=== PATIENT | female | born 1950 | race Caucasian/White ===

== ENCOUNTER 2018-06-03 01:59 | Outpatient (CLI) | payer MEDICARE, BC, SELFPAY ==
[2018-06-03 11:37] LABS: CREATININE 0.78 mg/dL (0.55-1.02); Potassium 5.1 mmol/L (3.5-5.1)
[2018-06-03 12:06] LABS: Ferritin 72 ng/mL (8-388)
[2018-06-03 12:14] LABS: Hemoglobin A1C 6.5 % (4.5-6.2)
== END 2018-06-03 02:19 ==
PROVIDERS: PCP Family Medicine; Visit Provider Nurse Practitioner
DX: E11.9 Type 2 diabetes mellitus without complications (principal); M25.50 Pain in unspecified joint
CPT/HCPCS: 36415; 82565; 82728; 83036; 84132

== ENCOUNTER 2018-06-26 00:58 | Outpatient (CLI) | payer MEDICARE, BC, SELFPAY ==
--- NOTE | 2018-06-26 08:51 | DI.MAMMO_ITS ---
SYMPTOMS/DIAGNOSIS: SCREENING, Z12.31 MAMMOGRAM: Mammograms were interpreted according to the usual protocol including computer analysis with CAD system, tomosynthesis and C view imaging. Comparison is made with exams from 2009 through 2017. The breasts are composed of fatty density tissue, breast density Category A. No suspicious masses or suspicious microcalcifications are seen. There has been no significant change. IMPRESSION: Category I A, negative mammogram. Routine screening is recommended. [facility] ASSESSMENT OF FINDINGS: Negative. Category 1. Patient will receive a letter notifying them of these results. BI-RAD category A. The breasts are almost entirely fatty.
== END 2018-06-26 01:18 ==
PROVIDERS: PCP Family Medicine; Visit Provider Family Medicine
DX: Z12.31 Encounter for screening mammogram for malignant neoplasm of breast (principal)
CPT/HCPCS: 77063; 77067

== ENCOUNTER → 2018-10-23 13:15 | Outpatient (BNVA) | payer MEDICARE, BC, SELFPAY | PROVIDERS: PCP Family Medicine; Referring Provider Family Medicine; Visit Provider Orthopaedic Surgery | DX: M17.11 Unilateral primary osteoarthritis, right knee (principal) | CPT/HCPCS: 20610; 99211; 99213; J7325 ==

== ENCOUNTER 2018-12-17 10:30 | Outpatient (CLI) | payer MEDICARE, BC, SELFPAY ==
[2018-12-17 13:18] LABS: Vitamin B12 539 pg/mL (193-986)
== END 2018-12-17 10:50 ==
PROVIDERS: PCP Family Medicine; Visit Provider Family Medicine
DX: E53.8 Deficiency of other specified B group vitamins (principal)
CPT/HCPCS: 36415; 82607

== ENCOUNTER → 2019-01-16 | Outpatient (CLI) | payer MEDICARE, BC, SELFPAY ==
--- NOTE | 2019-01-16 11:30 | DI.RAD_ITS ---
SYMPTOMS/DIAGNOSIS: LEFT LEG PAIN, M79.605, ANTERIOR AND MEDIAL STUMP PAIN S/P AMPUTATION IN 2013, PROSTHESIS IN 2014-PAIN SINCE BUT WORSENING WITH TIME LEFT KNEE: Three views were obtained and show a below-knee amputation. Mild hypertrophic changes noted at the amputated tip of the fibula and tibia. Minimal hypertrophic spurring of the bones of the knee. No other abnormality seen.
== END ==
PROVIDERS: PCP Family Medicine; Visit Provider Family Medicine
DX: M79.605 Pain in left leg (principal); E11.9 Type 2 diabetes mellitus without complications; Z89.512 Acquired absence of left leg below knee
CPT/HCPCS: 36415; 73590; 83036

== ENCOUNTER 2019-02-16 10:52 | Outpatient (CLI) | payer MEDICARE, BC, SELFPAY ==
[2019-02-16 13:06] LABS: Ferritin 58 ng/mL (8-388); TSH (W/Ref FT4) 2.27 uIU/mL (0.358-3.74)
[2019-02-16 13:13] LABS: Vitamin D 25 Total 14.9 ng/ml (30-100)
== END 2019-02-16 11:12 ==
PROVIDERS: PCP Family Medicine; Visit Provider Internal Medicine Sleep Medicine
DX: E55.9 Vitamin D deficiency, unspecified (principal); R53.83 Other fatigue; M25.50 Pain in unspecified joint
CPT/HCPCS: 36415; 82306; 82728; 84443

== ENCOUNTER 2019-04-17 10:40 | Outpatient (CLI) | payer MEDICARE, BC, SELFPAY ==
[2019-04-17 13:35] LABS: Hemoglobin A1C 8.4 % (4.5-6.2)
== END 2019-04-17 11:00 ==
PROVIDERS: PCP Family Medicine; Visit Provider Family Medicine
DX: E11.9 Type 2 diabetes mellitus without complications (principal)
CPT/HCPCS: 36415; 83036

== ENCOUNTER → 2019-04-28 09:32 | Outpatient (BNVA) | payer MEDICARE, BC, SELFPAY | PROVIDERS: PCP Family Medicine; Referring Provider Family Medicine; Visit Provider Orthopaedic Surgery | DX: M17.11 Unilateral primary osteoarthritis, right knee (principal); E11.9 Type 2 diabetes mellitus without complications; Z79.84 Long term (current) use of oral hypoglycemic drugs; I10 Essential (primary) hypertension | CPT/HCPCS: 20610; 99211; 99213; J7325 ==

== ENCOUNTER 2019-06-08 09:57 | Outpatient (CLI) | payer MEDICARE, BC, SELFPAY ==
[2019-06-08 11:44] LABS: Ferritin 78 ng/mL (8-388)
== END 2019-06-08 10:17 ==
PROVIDERS: PCP Family Medicine; Visit Provider Internal Medicine Sleep Medicine
DX: E55.9 Vitamin D deficiency, unspecified (principal); M25.50 Pain in unspecified joint
CPT/HCPCS: 36415; 82306; 82728

== ENCOUNTER 2019-07-08 12:51 | Outpatient (CLI) | payer MEDICARE, BC, SELFPAY ==
--- NOTE | 2019-07-08 12:30 | DI.RAD_ITS ---
EXAM: XR HIP RT COMPLETE AP PELVIS INDICATION: RT HIP PAIN, M25.551. COMPARISON: No exams were available for comparison TECHNIQUE: 2D digital imaging was performed. FINDINGS: Severe degenerative changes involving the right hip are demonstrated. There is joint space narrowing , articular sclerosis and periarticular hypertrophic changes. There is no evidence of a fracture or dislocation. Also note is made of severe DJD involving the left hip.
== END 2019-07-08 13:11 ==
PROVIDERS: PCP Family Medicine; Visit Provider Family Medicine
DX: M25.551 Pain in right hip (principal); M16.11 Unilateral primary osteoarthritis, right hip
CPT/HCPCS: 73502

== ENCOUNTER 2019-08-17 10:30 | Outpatient (CLI) | payer MEDICARE, BC, SELFPAY ==
--- NOTE | 2019-08-17 09:14 | DI.RAD_ITS ---
EXAM: XR KNEE RT 3V AP,LAT,APOLINAR INDICATION: f/u R knee pain. COMPARISON: RIGHT KNEE 3 VIEWS from 01/24/2015 TECHNIQUE: 2D digital imaging was performed. FINDINGS: There is marked narrowing in the medial femoral tibial joint space. Moderate narrowing of the patell ofemoral joint is present. There is periarticular spurring in all 3 joint compartments. No acute fr acture or dislocation is seen. Atherosclerosis is present. The distal aspect of a vascular stent is seen at the upper aspect of the lateral film. IMPRESSION: Marked osteoarthritis of the right knee.
== END 2019-08-17 10:50 ==
PROVIDERS: PCP Family Medicine; Referring Provider Family Medicine; Visit Provider Student in an Organized Health Care Education/Training Program
DX: M25.561 Pain in right knee (principal); M17.11 Unilateral primary osteoarthritis, right knee; Z89.512 Acquired absence of left leg below knee; M16.11 Unilateral primary osteoarthritis, right hip; E11.8 Type 2 diabetes mellitus with unspecified complications; Z79.84 Long term (current) use of oral hypoglycemic drugs
CPT/HCPCS: 20610; 73562; 99214; J1040

== ENCOUNTER 2019-10-01 00:53 | Outpatient (CLI) | payer MEDICARE, BC, SELFPAY ==
--- NOTE | 2019-10-01 13:18 | DI.RAD_ITS ---
EXAM: RF JOINT INJECTION FLUORO GUID CLINICAL HISTORY: DJD HIP, RT HIP PAIN, R5.559, HIP INJECTION TECHNIQUE: 2D and realtime digital imaging was performed. Fluoroscopy was provided in the OR COMPARISON: No exams were available for comparison FINDINGS: Fluoroscopy was provided for guidance with right hip injection. A single hard copy image shows a nee dle projecting over the right femoral head. Small amount of contrast material is seen. Degenerative changes are also noted. Fluoro time: 1 second
[2019-10-01] MEDS: Bupivacaine 0.5% Pres-Free 10 ML VIAL 6 ML IJ (14:22)
[2019-10-01] MEDS: Omnipaque 300 MG/ML 10 ML BTL IJ (14:22)
[2019-10-01] MEDS: methylPREDNISolone ACETATE 80 MG/ML VIAL IM (14:23)
--- NOTE | 2019-10-01 14:46 | W.PROCNOTE ---
Date of service: 10/01/19 Time of Service: 13:46 Procedure Note Date of procedure: 10/01/19 Procedure: Right Hip Injection with Fluoroscopic Guidance Surgeon/Proceduralist/Physician: Zurdo Carlson Procedure Diagnosis: Right Hip Osteoarthritis Procedure Indications: Mary has had persistent pain of the RIGHT hip and groin. Noninvasive measures have been tried. To serve as both diagnostic and therapeutic, an injection under fluoroscopy was recommended. I had discussed the risks of the procedure and the patient elected to proceed. Procedure Description: Mary was greeted in the flouroscopy room. The correct side was identified and the consent was reviewed with the patient and signed. The patient was then placed in the supine position on the fluoroscopy table. The RIGHT hip was then prepped with Chloraprep. The anterolateral injection starting point was identiifed by bony landmarks and fluoroscopy. The skin and soft tissue in the tract of the injection was anesthetized with 1% Lidocaine. A spinal needle was then inserted deep into the hip joint at the level of the lateral femoral neck under fluoroscopic guidance. A small amount of Omnipaque solution was injected to confirm intraarticular placement. Once confirmed, the hip was injected with 6cc of 0.5% Bupivicaine and 80mg of Depo-Medrol. A bandaid was placed on the injection site. The patient tolerated the procedure well and noted improvement in pre-injection pain.
== END 2019-10-01 01:13 ==
PROVIDERS: PCP Family Medicine; Visit Provider Student in an Organized Health Care Education/Training Program
DX: M25.551 Pain in right hip (principal); M16.11 Unilateral primary osteoarthritis, right hip
CPT/HCPCS: 20610; 77002; J1040

== ENCOUNTER → 2019-10-30 09:11 | Outpatient (BNVA) | payer MEDICARE, BC, SELFPAY | PROVIDERS: PCP Family Medicine; Referring Provider Family Medicine; Visit Provider Student in an Organized Health Care Education/Training Program | DX: M16.11 Unilateral primary osteoarthritis, right hip (principal); M17.11 Unilateral primary osteoarthritis, right knee; E11.8 Type 2 diabetes mellitus with unspecified complications; Z79.84 Long term (current) use of oral hypoglycemic drugs; Z98.890 Other specified postprocedural states | CPT/HCPCS: 99213 ==

== ENCOUNTER 2020-03-11 01:39 | Outpatient (CLI) | payer MEDICARE, BC, SELFPAY ==
[2020-03-11 10:38] LABS: HCT 43.3 % (36.0-46.0); HGB 14.1 g/dL (12.0-15.5); Mean Corp. HGB Concentration 32.6 g/dL (32.0-36.0); Mean Corpuscular Hemoglobin 30.3 pg (27.0-33.0); Mean Corpuscular Volume 92.9 fL (80-95); RBC 4.66 m/cumm (4.00-5.20); RBC Distribution Width 15.8 % (11.7-14.6); White Blood Cell Count 11.56 k/cumm (4.4-10.8)
[2020-03-11 10:45] LABS: Hemoglobin A1C 9.7 % (3.8-5.6)
[2020-03-11 11:09] LABS: Platelet Count 759 x1000/uL (130-400)
[2020-03-11 11:18] LABS: COMMENT (LAB VIEW ONLY) 119.81 mg/dL
[2020-03-11 11:19] LABS: Microalb ug/mg Crea 373.5 ug/mg Cr
[2020-03-11 11:24] LABS: Potassium 5.2 mmol/L (3.5-5.1)
[2020-03-11 18:06] LABS: Anion Gap 8.6 mmol/L (3-11); BUN 27 mg/dL (7-18); CO2 28.4 mmol/L (21.0-32.0); CREATININE 0.91 mg/dL (0.55-1.02); Calcium 10.1 mg/dL (8.5-10.1); Chloride 101 mmol/L (98-107); Glucose 256 mg/dL (74-106); Potassium 5.2 mmol/L (3.5-5.1); Sodium 138 mmol/L (136-145)
== END 2020-03-11 01:59 ==
PROVIDERS: PCP Family Medicine; Visit Provider Student in an Organized Health Care Education/Training Program
DX: M25.551 Pain in right hip (principal); M16.11 Unilateral primary osteoarthritis, right hip; I10 Essential (primary) hypertension; E11.9 Type 2 diabetes mellitus without complications
CPT/HCPCS: 36415; 80048; 85027; 86850; 86900; 86901; 82043; 82570; 83036; 84132

== ENCOUNTER 2020-04-04 02:20 | Outpatient (CLI) | payer MEDICARE, BC, SELFPAY ==
[2020-04-04 11:06] LABS: Abs Immature Grans 0.05 k/cumm (0.0-0.09); Absolute Basophil Count 0.06 k/cumm (0.0-0.2); Absolute Eosinophil Count 0.13 k/cumm (0.0-0.7); Absolute Monocyte Count 0.72 k/cumm (0.11-0.7); Basophils % 0.5; Eosinophils % 1.1; HCT 44.1 % (36.0-46.0); HGB 14.2 g/dL (12.0-15.5); Immature Grans % 0.4 %; Lymphocytes % 13.7; Mean Corp. HGB Concentration 32.2 g/dL (32.0-36.0); Mean Corpuscular Hemoglobin 30.2 pg (27.0-33.0); Mean Corpuscular Volume 93.8 fL (80-95); Mean Platelet Volume 9.5 fL (8.0-11.0); Monocytes % 5.9; Neutrophils % 78.4; RBC Distribution Width 15.8 % (11.7-14.6); White Blood Cell Count 12.23 k/cumm (4.4-10.8)
[2020-04-04 11:28] LABS: Absolute Lymphocyte Count 1.68 k/cumm (1.2-3.4); Absolute Neutrophil Count 9.59 k/cumm (1.2-6.7)
[2020-04-04 12:03] LABS: Anion Gap 6.6 mmol/L (3-11); BUN 26 mg/dL (7-18); CO2 29.4 mmol/L (21.0-32.0); Calcium 10.6 mg/dL (8.5-10.1); Chloride 103 mmol/L (98-107); Glucose 127 mg/dL (74-106); Sodium 139 mmol/L (136-145)
[2020-04-04 12:12] LABS: Potassium 6.3 mmol/L (3.5-5.1)
[2020-04-04 12:45] LABS: Platelet Count 813 x1000/uL (130-400)
[2020-04-04 12:46] LABS: Diff Comment PLT Morph Reviewed; Polychromasia Present
[2020-04-06 12:37] LABS: Ferritin 65 ng/mL (8-252)
== END 2020-04-04 02:40 ==
PROVIDERS: PCP Family Medicine; Visit Provider Family Medicine
DX: E87.1 Hypo-osmolality and hyponatremia (principal); D64.9 Anemia, unspecified; E10.9 Type 1 diabetes mellitus without complications; I73.9 Peripheral vascular disease, unspecified
CPT/HCPCS: 36415; 80048; 82728; 85025

== ENCOUNTER 2020-04-04 15:09 | Emergency (ER) | payer MEDICARE, BC, SELFPAY ==
[2020-04-04] VITALS (15 sets, daily range): BP systolic 134–172; BP diastolic 50–68; PULSE 61–71; RESP 8–18; TEMP 36.4–36.7; O2SAT 91–97
--- NOTE | 2020-04-04 15:00 | RT.EKG_ITS ---
APPROVED REPORT Exam: Resting ECG Patient Location: E HR:64 bpm ECG Measurements Heart Rate 64 AXIS IL 161 P 44 QRSd 94 QRS 22 QT 405 T 69 QTc 417 <Conclusion> Sinus rhythm...normal P axis, V-rate 60- 99 EKG shows sinus rhythm at 64, normal axis, QRS 94, QTc 417, no acute ischemic changes, nondiagnostic EKG
--- NOTE | 2020-04-04 15:29 | ED.GENADUL_ITS ---
Discharge Plan Disposition Patient Disposition: HOME Condition: Stable Discharge Details Chief Complaint: GenMedical Clinical Impression: Thrombocytosis, Hypomagnesemia Primary Care Provider: Gui Graham ED Provider: Jennifer Flanagan Home Meds and New Rx's Prescriptions: Continued magnesium 250 mg tablet 500 mg PO DAILY RF: 0 aspirin 325 MG tablet 325 mg PO DAILY RF: 0 acetaminophen [Tylenol Extra Strength] 500 MG tablet 500 mg PO daily prn RF: 0 atorvastatin 40 mg tablet 40 mg PO DAILY Qty: 90 RF: 3 losartan 100 mg tablet 100 mg PO DAILY Qty: 90 RF: 3 ropinirole 2 mg tablet 2 mg PO TID Qty: 270 RF: 3 (DME) Accu-Chek Guide test strips Strip 1 ea Miscellaneous DAILY Qty: 100 RF: 3 (DME) lancets Misc 1 ea Miscellaneous DAILY Qty: 100 RF: 3 (DME) pen needle, diabetic [Comfort EZ Pen [place]] 33 gauge x 5/32 needle See Rx Instructions .ROUTE .MEDSUPPLY Qty: 200 RF: 3 (DME) blood-glucose meter [Accu-Chek Guide Glucose Meter] Misc See Rx Instructions .ROUTE .MEDSUPPLY Qty: 1 RF: 0 (DME) insulin syringe-needle U-100 [BD Insulin Syringe Ultra-Fine] 1 mL 31 gauge x 5/16 syringe See Rx Instructions .ROUTE .MEDSUPPLY Qty: 10 RF: 0 Humulin N NPH Insulin KwikPen 100 unit/mL (3 mL) insulin pen 12 unit SC DAILY RF: 0 No Action amlodipine 10 mg tablet 10 mg PO DAILY Qty: 90 RF: 3 chlorthalidone 25 mg tablet 12.5 mg PO DAILY Qty: 30 RF: 2 duloxetine 30 mg capsule,delayed release(DR/EC) 30 mg PO DAILY Qty: 90 RF: 3 metformin 1,000 mg tablet 1,000 mg PO BID Qty: 180 RF: 3 Discharge Instructions Instructions: Hypomagnesemia (ED) Additional Instructions: Please return immediately to the emergency department if you develop any new or worsening symptoms, if your condition does not improve as expected, or if you be come otherwise concerned. It is extremely important that you call soon as possible to make an appointment to be seen in follow-up for this visit by your primary care doctor. Referrals: Gui Graham [Primary Care Provider] - Discharge Data Discharge Date/Time-TO BE ENTERED AT DEPARTURE: 04/04/20 19:05 Medical Decision Making Mary Rojo is a 69-year-old woman who presented to the emergency department with potassium 6.3 on outpatient labs, also noted to have thrombocytosis as well (although this was initially noted 03/05). On exam patient is very well and nontoxic-appearing. Benign cardiopulmonary exam. Abdominal exam benign. Concern for hyperkalemia, other metabolic/electrolyte derangement, UTI versus other. Exam/history is not consistent with other acute emergent intra-abdominal/pelvic process, sepsis. Plan for EKG, repeat labs, IV, telemetry. Rhythm strip shows normal sinus rhythm 60. EKG okay. Labs reviewed, potassium 4.4, platelets 735. No hemolysis noted on 6.3 potassium result from earlier lab draw, given this discrepancy will repeat BMP. Patient reassessed, she reports no pain or any other symptoms, states she feels well. I discussed lab results with referring physician Dr. Moore, discussed thrombocytosis, Dr. Moore agreed with no acute intervention, patient to be seen in follow-up by her PCP as an outpatient for this. Repeat BMP shows potassium 4.5. Patient receiving IV magnesium, okay for discharge after infusion completed. On reassessment, Patient feels well, reports having no current symptoms. I had a lengthy discussion with Patient regarding return to emergency department precautions, home care, and importance of outpatient follow-up. Pt verbalizes understanding of the plan and is amenable. Patient discharged to home with clear plan for outpatient follow-up. All questions were answered. Disposition decision was made weighing the risks and benefits of hospitalization versus outpatient treatment, the risk for further decompensation, and the patient's wishes. Medical Records Medical records reviewed: Yes I reviewed the patient's medical records. Lab Data Lab results reviewed: Yes I reviewed the patient's lab results. Labs: Laboratory Tests Range/Units 04/04/20 04/04/20 04/04/20 15:50 15:50 16:30 WBC (4.4-10.8) k/cumm 11.46 H RBC (4.00-5.20) m/cumm 4.32 Hgb (12.0-15.5) g/dL 13.1 Hct (36.0-46.0) % 40.4 MCV (80-95) fL 93.5 MCH (27.0-33.0) pg 30.3 MCHC (32.0-36.0) g/dL 32.4 RDW (11.7-14.6) % 15.7 H Plt Count (130-400) x1000/uL 735 H MPV (8.0-11.0) fL 9.4 Immature Gran % % 0.3 Neutrophils % 80.2 Lymphocytes % 11.6 Monocytes % 6.3 Eosinophils % 1.3 Basophils % 0.3 Absolute Neutrophils (1.2-6.7) k/cumm 9.19 H Absolute Lymphocytes (1.2-3.4) k/cumm 1.33 Absolute Monocytes (0.11-0.7) k/cumm 0.72 H Absolute Eosinophils (0.0-0.7) k/cumm 0.15 Absolute Basophils (0.0-0.2) k/cumm 0.03 Sodium (136-145) mmol/L 140 Potassium (3.5-5.1) mmol/L 4.4 D Chloride (98-107) mmol/L 104 Carbon Dioxide (21.0-32.0) mmol/L 24.6 Anion Gap (3-11) mmol/L 11.4 H BUN (7-18) mg/dL 29 H Creatinine (0.55-1.02) mg/dL 0.98 Estimated GFR/1.73 m2 (mL/min/1.73m2) 56.27 Glucose (74-106) mg/dL 119 H Calcium (8.5-10.1) mg/dL 9.1 Magnesium (1.8-2.4) mg/dL 1.5 L Total Bilirubin (0.2-1.0) mg/dL 0.4 AST (15-37) U/L 12 L ALT (14-59) U/L 20 Alkaline Phosphatase (46-116) U/L 54 Total Protein (6.4-8.2) g/dL 7.4 Albumin (3.4-5.0) g/dL 3.8 Urine Color (Yellow) Yellow Urine Clarity (Clear) Clear Urine pH (5-8) 5.5 Ur Specific [place] (1.005-1.025) 1.020 Urine Protein (Negative) mg/dL Trace H Urine Ketones (Negative) mg/dL Trace H Urine Blood (Negative) Negative Urine Nitrite (Negative) Negative Urine Bilirubin (Negative) Negative Urine Urobilinogen (Up TO 0.2) EU/dL 0.2 Ur Leukocyte Esterase (Negative) Negative Urine RBC (0-2) HPF 0-2 Urine WBC (0-5) HPF 0-2 Ur Epithelial Cells (Negative) HPF Few Urine Crystals (Negative) HPF Negative Urine Bacteria (Negative) HPF Few Urine Casts (Negative) LPF Negative Urine Mucus (Negative) Negative Urine Other (Negative) Negative Ur Culture Indicated? No Urine Glucose (Negative) mg/dL Negative Range/Units 04/04/20 17:07 WBC (4.4-10.8) k/cumm RBC (4.00-5.20) m/cumm Hgb (12.0-15.5) g/dL Hct (36.0-46.0) % MCV (80-95) fL MCH (27.0-33.0) pg MCHC (32.0-36.0) g/dL RDW (11.7-14.6) % Plt Count (130-400) x1000/uL MPV (8.0-11.0) fL Immature Gran % % Neutrophils % Lymphocytes % Monocytes % Eosinophils % Basophils % Absolute Neutrophils (1.2-6.7) k/cumm Absolute Lymphocytes (1.2-3.4) k/cumm Absolute Monocytes (0.11-0.7) k/cumm Absolute Eosinophils (0.0-0.7) k/cumm Absolute Basophils (0.0-0.2) k/cumm Sodium (136-145) mmol/L 139 Potassium (3.5-5.1) mmol/L 4.5 Chloride (98-107) mmol/L 103 Carbon Dioxide (21.0-32.0) mmol/L 25.6 Anion Gap (3-11) mmol/L 10.4 BUN (7-18) mg/dL 28 H Creatinine (0.55-1.02) mg/dL 0.95 Estimated GFR/1.73 m2 (mL/min/1.73m2) 58.33 Glucose (74-106) mg/dL 108 H Calcium (8.5-10.1) mg/dL 9.4 Magnesium (1.8-2.4) mg/dL Total Bilirubin (0.2-1.0) mg/dL AST (15-37) U/L ALT (14-59) U/L Alkaline Phosphatase (46-116) U/L Total Protein (6.4-8.2) g/dL Albumin (3.4-5.0) g/dL Urine Color (Yellow) Urine Clarity (Clear) Urine pH (5-8) Ur Specific [place] (1.005-1.025) Urine Protein (Negative) mg/dL Urine Ketones (Negative) mg/dL Urine Blood (Negative) Urine Nitrite (Negative) Urine Bilirubin (Negative) Urine Urobilinogen (Up TO 0.2) EU/dL Ur Leukocyte Esterase (Negative) Urine RBC (0-2) HPF Urine WBC (0-5) HPF Ur Epithelial Cells (Negative) HPF Urine Crystals (Negative) HPF Urine Bacteria (Negative) HPF Urine Casts (Negative) LPF Urine Mucus (Negative) Urine Other (Negative) Ur Culture Indicated? Urine Glucose (Negative) mg/dL ECG Data Attestation: I personally reviewed and interpreted this ECG (s) as follows: Interpretation: EKG shows sinus rhythm at 64, normal axis, QRS 94, QTc 417, no acute ischemic changes, nondiagnostic EKG HPI General Mode of arrival: ambulatory . Date/Time Provider Initiated Documentation: 04/04/20 15:12 . Limitations to Documentation: no limitations . Information obtained by: patient, RN notes reviewed and old records reviewed . HPI Narrative: Mary Rojo is a 69-year-old woman with history of peripheral vascular disease status post left AKA, hyperlipidemia, hypertension, insulin-dependent diabetes, coronary artery disease presenting to the emergency department with elevated potassium and thrombocytosis. Patient reports that she was found to have thrombocytosis at an earlier blood draw in February, but did not have intervention at that time. Patient reports that she had routine blood draw to check her blood sugar levels today, and was told to come to the emergency department by her PCP for elevated potassium (was not seen as an outpatient by her PCP). Patient reports that she has no new symptoms today. She reports that she has had some mild intermittent lower abdominal pain over the past few weeks that has not been limiting her usual daily activities. She denies fever, vomiting, diarrhea, shortness of breath, cough, numbness, weakness, rash. Patient reports that she had left AKA in the past secondary to peripheral vascular disease. She reports that she has been having no issues with the stump. States that she has been eating and drinking as usual. She denies recent illness. Related Data Home Medications Medication Instructions Recorded Confirmed aspirin 325 mg PO DAILY tab-cap 11/19/12 04/06/20 acetaminophen [Tylenol Extra 500 mg PO daily prn 10/06/13 04/06/20 Strength] magnesium 250 mg tablet 500 mg PO DAILY tab 04/17/19 04/06/20 atorvastatin 40 mg tablet 40 mg PO DAILY #90 tab-cap 12/15/19 04/06/20 losartan 100 mg tablet 100 mg PO DAILY #90 tab 02/02/20 04/06/20 ropinirole 2 mg tablet 2 mg PO TID #270 tab 03/01/20 04/06/20 blood sugar diagnostic #100 strip 03/11/20 04/06/20 lancets #100 each 03/11/20 04/06/20 pen needle, diabetic 33 gauge x #200 each 03/11/20 04/06/20 blood-glucose meter #1 each 03/17/20 04/06/20 insulin syringe-needle U-100 1 mL #10 each 03/29/20 04/06/20 31 gauge x 01/29 Humulin N NPH Insulin KwikPen 12 unit SC DAILY 04/04/20 04/06/20 amlodipine 10 mg tablet 10 mg PO DAILY #90 tab 04/06/20 04/06/20 chlorthalidone 25 mg tablet 12.5 mg PO DAILY #30 tab 04/06/20 04/06/20 duloxetine 30 mg capsule,delayed 30 mg PO DAILY #90 cap 04/06/20 04/06/20 release metformin 1,000 mg tablet 1,000 mg PO BID #180 tab-cap 04/06/20 04/06/20 Previous Rx's Medication Instructions Recorded atorvastatin 40 mg tablet 40 mg PO DAILY #90 tab-cap 12/15/19 losartan 100 mg tablet 100 mg PO DAILY #90 tab 02/02/20 ropinirole 2 mg tablet 2 mg PO TID #270 tab 03/01/20 blood sugar diagnostic #100 strip 03/11/20 lancets #100 each 03/11/20 pen needle, diabetic 33 gauge x #200 each 03/11/20 blood-glucose meter #1 each 03/17/20 amlodipine 10 mg tablet 10 mg PO DAILY #90 tab 04/06/20 chlorthalidone 25 mg tablet 12.5 mg PO DAILY #30 tab 04/06/20 duloxetine 30 mg capsule,delayed 30 mg PO DAILY #90 cap 04/06/20 release metformin 1,000 mg tablet 1,000 mg PO BID #180 tab-cap 04/06/20 Allergies Allergy/AdvReac Type Severity Reaction Status Date / Time clopidogrel Allergy Skin Rash Verified 04/06/20 10:28 propoxyphene AdvReac Nausea Verified 04/06/20 10:28 General Stated Complaint: GenMedical KIMI: 2 Review of Systems Narrative: Constitutional: denies fevers Eyes: denies eye pain ENT: denies ear pain, dental pain, sore throat Cardiovascular: denies chest pain, edema Respiratory: denies SOB, cough GI: denies vomiting, diarrhea, reports abdominal pain as per HPI : denies flank pain MSK: denies back pain, neck pain, arthralgias, myalgias Skin: denies rash Neuro: denies headaches, numbness, weakness PFSH Medical History Depression diabetes with peripheral vascular disease Hip pain, right (Acute) Hypertension Social History Smoking/Tobacco Use Status: Former Tobacco Use Quit Date: 10/15/04 Tobacco: How many years used: 37 Alcohol Intake: current Alcohol Intake frequency: holidays/special occasions only Drug use: Never Substance use type: does not use Caregiver/Support person: No Household members: spouse Housing: house Communication Needs: None Do you need help understanding health information?: Rarely current occupation: [employer] Pets and animals: Yes Pets and animals: cat(s) Sexually active: No Do you think of yourself as: straight/heterosexual Current gender identity: female What is your relationship status?: How often do you talk on the phone with friends or family?: once per week How often do you get together with friends or relatives?: twice per week How often do you attend pentecostal or zoroastrian services?: 4 or more times per year Do you belong to any clubs or organized social groups?: no Panel score (0-1 are the most socially isolated patients): 3 What type of physical activity do you participate in: none 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 Special carmelina needs: No Seatbelt use: always Helmet use: Yes Helmet use: always Drive intox 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 local hazmat driver: No Do you feel safe at home: Yes Do you feel safe in your relationship?: Yes Exam Narrative Exam Narrative: Constitutional: well and [id number], pleasant, conversing normally HENT: head atraumatic/normocephalic/normal inspection, mucous membranes moist Eyes: conjunctiva normal, sclera normal, pupils 3mm b/l Neck: no stridor, normal ROM, trachea midline Resp: normal work of breathing, no respiratory distress Cardio: normal rate, normal rhythm GI: abdomen soft, non-tender, non-distended Skin: warm, dry, normal color, no rash Neuro: alert, not altered, grossly non-focal, normal tone Ext: no edema or posterior calf tenderness right lower extremity. Left AKA Psych: normal mood, normal affect, normal behavior Course Vital Signs Vital signs: Vital Signs Temperature 36.4 C L 04/04/20 15:16 Pulse 69 04/04/20 15:16 Respiratory Rate 18 04/04/20 15:16 Blood Pressure 150/61 H 04/04/20 15:16 Pulse Oximetry 95 04/04/20 15:16 Temperature 36.4 C L 04/04/20 15:16 Temperature Source Temporal Artery Scan 04/04/20 15:16 Pulse 69 04/04/20 15:16 Respiratory Rate 18 04/04/20 15:16 Respiratory Effort Non-Labored 04/04/20 15:20 Blood Pressure 150/61 H 04/04/20 15:16 Pulse Oximetry 95 04/04/20 15:16 Oxygen Delivery Method Room Air 04/04/20 15:16 Oxygen Flow Rate 0 04/04/20 15:16 Pain Level 3 04/04/20 15:16
[2020-04-04 16:01] LABS: Abs Immature Grans 0.04 k/cumm (0.0-0.09); Absolute Eosinophil Count 0.15 k/cumm (0.0-0.7); Absolute Lymphocyte Count 1.33 k/cumm (1.2-3.4); Absolute Monocyte Count 0.72 k/cumm (0.11-0.7); Basophils % 0.3; Eosinophils % 1.3; HCT 40.4 % (36.0-46.0); HGB 13.1 g/dL (12.0-15.5); Immature Grans % 0.3 %; Lymphocytes % 11.6; Mean Corp. HGB Concentration 32.4 g/dL (32.0-36.0); Mean Corpuscular Hemoglobin 30.3 pg (27.0-33.0); Mean Corpuscular Volume 93.5 fL (80-95); Mean Platelet Volume 9.4 fL (8.0-11.0); Monocytes % 6.3; Neutrophils % 80.2; RBC 4.32 m/cumm (4.00-5.20); RBC Distribution Width 15.7 % (11.7-14.6); White Blood Cell Count 11.46 k/cumm (4.4-10.8)
[2020-04-04 16:04] LABS: Absolute Basophil Count 0.03 k/cumm (0.0-0.2); Absolute Neutrophil Count 9.19 k/cumm (1.2-6.7)
[2020-04-04 16:10] LABS: Platelet Count 735 x1000/uL (130-400)
[2020-04-04 16:14] LABS: ALT 20 U/L (14-59); AST 12 U/L (15-37); Albumin 3.8 g/dL (3.4-5.0); Alkaline Phosphatase 54 U/L (46-116); Anion Gap 11.4 mmol/L (3-11); BUN 29 mg/dL (7-18); Bilirubin, Total 0.4 mg/dL (0.2-1.0); CO2 24.6 mmol/L (21.0-32.0); CREATININE 0.98 mg/dL (0.55-1.02); Calcium 9.1 mg/dL (8.5-10.1); Chloride 104 mmol/L (98-107); Estimated GFR 56.27 (mL/min/1.73m2); Glucose 119 mg/dL (74-106); Magnesium 1.5 mg/dL (1.8-2.4); Potassium 4.4 mmol/L (3.5-5.1); Sodium 140 mmol/L (136-145); Total Protein 7.4 g/dL (6.4-8.2)
[2020-04-04] MEDS: MAGNESIUM SULFATE 2 GM/50 ML BAG IVPB (16:58)
[2020-04-04 17:02] LABS: Bilirubin Negative (Negative); Blood Negative (Negative); Clarity Clear (Clear); Glucose Negative (Negative); Ketones Trace mg/dL (Negative); Leukocyte Esterase Negative (Negative); Nitrite Negative (Negative); Urobilinogen 0.2 EU/dL (Up TO 0.2); pH 5.5 (5-8)
[2020-04-04 17:10] LABS: Bacteria Few HPF (Negative); C & S Indicated? No; Casts Negative LPF (Negative); Crystals Negative HPF (Negative); Epithelial Cells Few HPF (Negative); Mucus Negative (Negative); Other Cells Negative (Negative); RBC 0-2 HPF (0-2); WBC 0-2 HPF (0-5)
[2020-04-04 17:20] LABS: Anion Gap 10.4 mmol/L (3-11); BUN 28 mg/dL (7-18); CO2 25.6 mmol/L (21.0-32.0); CREATININE 0.95 mg/dL (0.55-1.02); Calcium 9.4 mg/dL (8.5-10.1); Chloride 103 mmol/L (98-107); Estimated GFR 58.33 (mL/min/1.73m2); Glucose 108 mg/dL (74-106); Potassium 4.5 mmol/L (3.5-5.1); Sodium 139 mmol/L (136-145)
== END 2020-04-04 19:05 | disposition home or self-care (01) ==
PROVIDERS: Emergency Provider Student in an Organized Health Care Education/Training Program; PCP Family Medicine
DX: D47.3 Essential (hemorrhagic) thrombocythemia (principal); E83.42 Hypomagnesemia; I10 Essential (primary) hypertension; E11.69 Type 2 diabetes mellitus with other specified complication; Z79.4 Long term (current) use of insulin
CPT/HCPCS: 36415; 80048; 80053; 93005; 99283; 81003; 81015; 82728; 83735; 85025; 93010

== ENCOUNTER 2020-04-28 03:13 | Outpatient (CLI) | payer MEDICARE, BC, SELFPAY ==
[2020-04-28 12:09] LABS: Anion Gap 9.3 mmol/L (3-11); BUN 28 mg/dL (7-18); CO2 28.7 mmol/L (21.0-32.0); CREATININE 0.83 mg/dL (0.55-1.02); Calcium 9.7 mg/dL (8.5-10.1); Chloride 102 mmol/L (98-107); Glucose 170 mg/dL (74-106); Magnesium 1.9 mg/dL (1.8-2.4); Potassium 4.9 mmol/L (3.5-5.1); Sodium 140 mmol/L (136-145)
== END 2020-04-28 03:33 ==
PROVIDERS: PCP Family Medicine; Visit Provider Family Medicine
DX: E83.42 Hypomagnesemia (principal); E87.1 Hypo-osmolality and hyponatremia
CPT/HCPCS: 36415; 80048; 83735

== ENCOUNTER 2020-05-10 09:40 | Outpatient (CLI) | payer MEDICARE, BC, SELFPAY ==
[2020-05-10 12:57] LABS: Abs Immature Grans 0.06 10^3/uL (0.0-0.06); Absolute Basophil Count 0.08 10^3/uL (0.0-0.2); Absolute Eosinophil Count 0.14 10^3/uL (0.0-0.7); Absolute Lymphocyte Count 1.42 10^3/uL (1.2-3.4); Absolute Monocyte Count 0.73 10^3/uL (0.1-0.8); Basophils % 0.7; Eosinophils % 1.3; HCT 44.7 % (36.0-46.0); HGB 14.2 g/dL (11.2-15.7); Immature Grans % 0.5; Lymphocytes % 12.9; MCH 30.2 pg (27.0-33.0); MCHC 31.8 % (32.0-36.0); MCV 95.1 fL (80-95); Monocytes % 6.6; Nucleated RBC 0 %; RDW 15.3 % (11.7-14.6); RDW-SD 53.5 fL; WBC 10.99 10^3/uL (4.4-10.8)
[2020-05-10 12:58] LABS: Anion Gap 5.5 mmol/L (3-11); BUN 21 mg/dL (7-18); CO2 29.5 mmol/L (21.0-32.0); Calcium 10.1 mg/dL (8.5-10.1); Chloride 105 mmol/L (98-107); Glucose 140 mg/dL (74-106); Potassium 4.9 mmol/L (3.5-5.1); Sodium 140 mmol/L (136-145)
[2020-05-10 13:18] LABS: Absolute Neutrophil Count 8.57 10^3/uL (1.2-6.7)
[2020-05-10 13:28] LABS: Platelet Count 761 10^3/uL (130-400)
== END 2020-05-10 10:00 ==
PROVIDERS: PCP Family Medicine; Visit Provider Family Medicine
DX: I25.10 Atherosclerotic heart disease of native coronary artery without angina pectoris (principal); E87.1 Hypo-osmolality and hyponatremia
CPT/HCPCS: 36415; 80048; 85025

== ENCOUNTER 2020-05-25 02:54 | Outpatient (CLI) | payer MEDICARE, BC, SELFPAY ==
[2020-05-25 12:24] LABS: Potassium 4.2 mmol/L (3.5-5.1)
== END 2020-05-25 03:14 ==
PROVIDERS: PCP Family Medicine; Visit Provider Family Medicine
DX: I10 Essential (primary) hypertension (principal)
CPT/HCPCS: 36415; 84132

== ENCOUNTER → 2020-07-04 13:13 | Outpatient (BNVA) | payer MEDICARE, BC, SELFPAY | PROVIDERS: PCP Family Medicine; Referring Provider Family Medicine; Visit Provider Student in an Organized Health Care Education/Training Program | DX: M17.11 Unilateral primary osteoarthritis, right knee (principal); M16.11 Unilateral primary osteoarthritis, right hip; I10 Essential (primary) hypertension; E11.69 Type 2 diabetes mellitus with other specified complication | CPT/HCPCS: 99213 ==

== ENCOUNTER 2020-07-22 02:36 | Outpatient (CLI) | payer MEDICARE, BC, SELFPAY ==
[2020-07-22 07:34] LABS: Abs Immature Grans 0.06 10^3/uL (0.0-0.06); Absolute Basophil Count 0.06 10^3/uL (0.0-0.2); Absolute Eosinophil Count 0.04 10^3/uL (0.0-0.7); Absolute Lymphocyte Count 1.37 10^3/uL (1.2-3.4); Absolute Monocyte Count 0.41 10^3/uL (0.1-0.8); Absolute Neutrophil Count 4.42 10^3/uL (1.2-6.7); Basophils % 0.9; Eosinophils % 0.6; HCT 39.9 % (36.0-46.0); HGB 12.8 g/dL (11.2-15.7); Immature Grans % 0.9; Lymphocytes % 21.5; MCH 32.1 pg (27.0-33.0); MCHC 32.1 % (32.0-36.0); MPV 9.4 fL (8.0-11.0); Monocytes % 6.4; Neutrophils % 69.7; Nucleated RBC 0 %; Platelet Count 356 10^3/uL (130-400); RBC 3.99 10^6/uL (3.93-5.22); RDW 18.7 % (11.7-14.6); RDW-SD 68.8 fL; WBC 6.36 10^3/uL (4.4-10.8)
[2020-07-22 07:48] LABS: ALT 16 U/L (14-59); AST 10 U/L (15-37); Albumin 3.9 g/dL (3.4-5.0); Alkaline Phosphatase 52 U/L (46-116); Anion Gap 7.3 mmol/L (3-11); BUN 39 mg/dL (7-18); Bilirubin, Total 0.5 mg/dL (0.2-1.0); CO2 31.7 mmol/L (21.0-32.0); CREATININE 1.11 mg/dL (0.55-1.02); Calcium 9.1 mg/dL (8.5-10.1); Chloride 99 mmol/L (98-107); Estimated GFR 48.74 (mL/min/1.73m2); Glucose 149 mg/dL (74-106); Potassium 3.8 mmol/L (3.5-5.1); Sodium 138 mmol/L (136-145); Total Protein 7.6 g/dL (6.4-8.2)
== END 2020-07-22 02:56 ==
PROVIDERS: PCP Family Medicine; Visit Provider Internal Medicine
DX: D47.1 Chronic myeloproliferative disease (principal); R73.9 Hyperglycemia, unspecified
CPT/HCPCS: 36415; 80053; 83036; 85025

== ENCOUNTER 2020-07-29 00:44 | Outpatient (CLI) | payer MEDICARE, BC, SELFPAY ==
[2020-07-29 13:36] LABS: HCT 36.3 % (36.0-46.0); HGB 12.3 g/dL (11.2-15.7); MCH 33.2 pg (27.0-33.0); MCHC 33.9 % (32.0-36.0); MCV 97.8 fL (80-95); MPV 9.9 fL (8.0-11.0); Platelet Count 291 10^3/uL (130-400); RBC 3.71 10^6/uL (3.93-5.22); RDW 19.3 % (11.7-14.6); RDW-SD 68.4 fL
[2020-07-29 14:31] LABS: Anion Gap 11.5 mmol/L (3-11); BUN 28 mg/dL (7-18); CO2 26.5 mmol/L (21.0-32.0); CREATININE 1.05 mg/dL (0.55-1.02); Calcium 9.2 mg/dL (8.5-10.1); Chloride 101 mmol/L (98-107); Estimated GFR 51.96 (mL/min/1.73m2); Glucose 145 mg/dL (74-106); Potassium 4.1 mmol/L (3.5-5.1); Sodium 139 mmol/L (136-145)
== END 2020-07-29 01:04 ==
PROVIDERS: PCP Family Medicine; Visit Provider Student in an Organized Health Care Education/Training Program
DX: M25.551 Pain in right hip (principal); M16.11 Unilateral primary osteoarthritis, right hip; Z01.818 Encounter for other preprocedural examination; Z01.812 Encounter for preprocedural laboratory examination
CPT/HCPCS: 36415; 80048; 85027; 86850; 86900; 86901; U0003

== ENCOUNTER 2020-07-29 01:23 | Outpatient (CLI) | payer MEDICARE, BC, SELFPAY ==
[2020-08-01 12:33] LABS: SARS-CoV-2 RNA Not Detected (NotDetected); SARS-CoV-2 RNA Source Nasal/Nares
== END 2020-07-29 01:43 ==
PROVIDERS: PCP Family Medicine; Visit Provider Student in an Organized Health Care Education/Training Program
DX: Z11.59 Encounter for screening for other viral diseases (principal); Z01.818 Encounter for other preprocedural examination
CPT/HCPCS: U0003

== ENCOUNTER → 2020-08-03 07:48 | Outpatient (BNVA) | payer MEDICARE, BC, SELFPAY | PROVIDERS: PCP Family Medicine; Referring Provider Family Medicine; Visit Provider Student in an Organized Health Care Education/Training Program | DX: R69 Illness, unspecified (principal) ==

== ENCOUNTER 2020-08-03 07:59 | Observation (INO) | payer MEDICARE, BC, SELFPAY ==
[2020-08-03] VITALS (9 sets, daily range): BP systolic 95–151; BP diastolic 36–67; PULSE 64–80; RESP 12–19; TEMP 36–37.1; O2SAT 91–98
--- NOTE | 2020-08-03 08:45 | DI.RAD_ITS ---
EXAM: XR HIP RT IN OR CLINICAL HISTORY: Osteoarthritis of right hip TECHNIQUE: 2D and realtime digital imaging was performed. CONTRAST MATERIAL: Refer to procedure report. COMPARISON: No exams were available for comparison FINDINGS: Fluoroscopy was provided for Dr. Carlson during the performance of a total right hip arthroplasty. Please refer to the procedure report for complete details. Fluoro time: 55.1 seconds IMPRESSION:
[2020-08-03] MEDS: Acetaminophen 500 MG TAB 1000 MG PO ×3 (08:59→19:40)
[2020-08-03] MEDS: Celecoxib 200 MG CAP 400 MG PO (08:59)
[2020-08-03] MEDS: Lactated Ringers 1,000 ML 80 ML IV ×2 (09:15→16:16)
--- NOTE | 2020-08-03 09:40 | DSE_ITS ---
Documented by User: Crystal Jean Baptiste 08/03/20 09:50 DS: Diagnosis Discharge Diagnosis (1) Osteoarthritis of right hip: Status: Chronic Discharge Plan Disposition Patient Disposition: HOME Condition: Good Discharge Details Reason For Visit: R HIP DJD Admit Date/Time: 08/03/20 07:59 Admit Provider: Zurdo Carlson Attending Provider: Zurdo Carlson Primary Care Provider: Gui Graham Hospital Course Hospital Course: Patient was admitted to the day surgery unit following the procedure. The surgery was tolerated well without any notable medical, surgical, or anesthetic complications. Mobilization began post-operatively. They were voiding spontaneously. Vitals were stable. Physical therapy worked with the patient and was cleared for discharge home. No acute medical issues. Pain was controlled on oral regimen. Home Meds and New Rx's Prescriptions: New celecoxib [Celebrex] 200 mg capsule 200 mg PO BID Qty: 30 RF: 0 acetaminophen 500 mg tablet 500 mg PO Q6H PRN (Reason: pain) Qty: 60 RF: 2 pantoprazole 40 mg tablet,delayed release (DR/EC) 40 mg PO DAILY 30 Days Qty: 30 RF: 0 docusate sodium [Colace] 100 mg capsule 100 mg PO BID Qty: 30 RF: 0 oxycodone 5 mg tablet 5 mg PO Q6H PRN (Reason: severe post-operative pain) Qty: 12 RF: 0 Continued (DME) Accu-Chek Guide test strips Strip 1 ea Miscellaneous DAILY Qty: 300 RF: 3 (DME) lancets Misc 1 ea Miscellaneous DAILY Qty: 300 RF: 3 magnesium 250 mg tablet 500 mg PO HS RF: 0 amlodipine 10 mg tablet 10 mg PO DAILY Qty: 90 RF: 3 aspirin 325 MG tablet 325 mg PO DAILY RF: 0 atorvastatin 40 mg tablet 40 mg PO DAILY Qty: 90 RF: 3 losartan 100 mg tablet 100 mg PO DAILY Qty: 90 RF: 3 ropinirole 2 mg tablet 2 mg PO TID Qty: 270 RF: 3 (DME) blood-glucose meter [Accu-Chek Guide Glucose Meter] Misc See Rx Instructions .ROUTE .MEDSUPPLY Qty: 1 RF: 0 (DME) insulin syringe-needle U-100 [BD Insulin Syringe Ultra-Fine] 1 mL 31 gauge x 5/16 syringe See Rx Instructions .ROUTE .MEDSUPPLY Qty: 10 RF: 0 duloxetine 30 mg capsule,delayed release(DR/EC) 30 mg PO DAILY Qty: 90 RF: 3 metformin 1,000 mg tablet 1,000 mg PO BID Qty: 180 RF: 3 chlorthalidone 50 mg tablet 100 mg PO DAILY Qty: 180 RF: 3 Novolin N NPH U-100 Insulin 100 unit/mL suspension See Rx Instructions SC .COMPLEX Qty: 10 RF: 5 spironolactone [Aldactone] 25 mg tablet 12.5 mg PO DAILY Qty: 30 RF: 2 hydroxyurea 500 mg capsule 1,000 mg PO DAILY RF: 0 Discontinued acetaminophen [Tylenol Extra Strength] 500 MG tablet 500 mg PO daily prn RF: 0 diphenhydramine-acetaminophen [Tylenol PM Extra Strength] 25-500 mg Tablet 3 tab PO PRN PRNRF: 0 Discharge Instructions Additional Instructions: Total Hip Discharge Instructions Activity: The most important activity is to walk. You should try to take short walks a few times a day. You have no restrictions on movement or positioning, but do not try to force what you do. You will find some stiffness and weakness with hip flexion (lifting your knee). Do not try to strengthen this too early, continue to practice walking and stairs and this will come. - Outpatient physical therapy can be helpful to help return you to a normal gait and improve your flexibility and strength. This can start around 2 weeks. For some patients, it?s not necessary. Usually this is determined at the time of discharge or at the first post-operative visit. - You should wear the JORGE hose on both legs for 2 weeks. Dressing: Keep the surgical dressing in place for at least one week. After the first week it may be removed and replace with light gauze and tape or nothing. It may get wet after 3 days but avoid soaking the dressing. If it gets wet, just lightly pat dry. It is important to always keep some gauze between skin folds, especially when you are sitting. Spend some time with the wound exposed when you are lying flat as the incision does wrinkle onto itself. Medications: - You should take Tylenol and an anti-inflammatory Celebrex as your primary pain control medications. If the Celebrex is too expensive or not covered, please call the office for another alternative (Advil/Ibuprofen or Naproxen/Aleve). - You have been prescribed a stronger pain medication Oxycodone for breakthrough pain, take as needed as prescribed. - You have also been prescribed a stomach acid reduction agent Pantoprozole to help reduce stomach acid and reflux. - You currently take Aspirin 325 mg daily - continue with this medication for DVT prevention unless instructed otherwise. - If you have constipation you should take Colace (which has been prescribed) or Miralax (which you may purchase [id number]). It takes most people 3-4 days to have a bowel movement. Follow-up: 2 weeks If you have any acute concerns or questions, please do not hesitate to contact the office at [phone]. You may contact Dr. Carlson with any questions after hours through the hospital at [phone] or on his cell phone at [phone]. Referrals: Zurdo Carlson MD [ [facility] STAFF PHYSICIAN] - 08/18/20 11:45 am Activity:: Activity as Tolerated Equipment/Supplies:: Walker Diet:: As Tolerated Discharge Orders Discharge Orders: Discharge Order (Routine); Ordered 08/04/20 Ordered By: Zurdo Carlson DS: Data Vitals/I&O Vitals and I&O: Vital Signs Temperature 36.1 C L 08/03/20 08:05 Pulse 73 08/03/20 08:05 Pulse Rhythm Regular 08/03/20 08:05 Respiratory Rate 18 08/03/20 08:05 Respiratory Effort Non-Labored 08/03/20 08:05 Respiratory Depth Normal 08/03/20 08:05 Respiratory Pattern Normal 08/03/20 08:05 Blood Pressure 134/67 08/03/20 08:05 Pulse Oximetry 97 08/03/20 08:05 Oxygen Delivery Method Room Air 08/03/20 08:05 Oxygen Flow Rate 0 08/03/20 08:05 Pain Level 10 08/03/20 08:05 Intake & Output 08/02/20 08/02/20 08/03/20 11:59 23:59 11:59 Weight 93.44 kg 92.4 kg [facility] Medical History Depression Diabetes mellitus, type II diabetes with peripheral vascular disease Hip pain, right Hypertension Surgical History Angioplasty L leg 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 Sister Skin cancer Brother No problems noted. Son Alcohol abuse Depression Maternal Grandfather Stomach cancer Paternal Grandfather No problems noted. Maternal Grandmother No problems noted. Paternal Grandmother No problems noted. Daughter Depression Social History Smoking/Tobacco Use Status: Former Tobacco Use Tobacco: How many years used: 37 Smoking risk assessment performed?: Yes Drug use: Never Household members: spouse Housing: house Do you need help understanding health information?: Rarely current occupation: [employer] Pets and animals: Yes Pets and animals: cat(s) Sexually active: No Do you think of yourself as: straight/heterosexual Current gender identity: female What is your relationship status?: How often do you talk on the phone with friends or family?: once per week How often do you get together with friends or relatives?: decline to answer How often do you attend samaritan or samaritan services?: 1-3 times per year Do you belong to any clubs or organized social groups?: no Panel score (0-1 are the most socially isolated patients): 1 What type of physical activity do you participate in: none Carmelina/Judaism: Muslim Special carmelina needs: No Seatbelt use: always Drive intox 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 paratransit driver: No Do you feel safe at home: Yes Do you feel safe in your relationship?: Yes Would you like helpful sources: No Documented by User: Zurdo Carlson MD 08/04/20 12:23 Date of service: 08/04/20 Time of Service: 12:14 Discharge Plan Disposition Patient Disposition: HOME Condition: Good Discharge Details Reason For Visit: R HIP DJD Admit Date/Time: 08/03/20 07:59 Admit Provider: Zurdo Carlson Attending Provider: Zurdo Carlson Primary Care Provider: Gui Graham Hospital Course Hospital Course: Patient was admitted to the day surgery unit following the procedure. The surgery was tolerated well without any notable medical, surgical, or anesthetic complications. Mobilization began post-operatively. They were voiding spontaneously. Vitals were stable. Physical therapy worked with the patient and was cleared for discharge home. No acute medical issues. Pain was controlled on oral regimen. Home Meds and New Rx's Prescriptions: New celecoxib [Celebrex] 200 mg capsule 200 mg PO BID Qty: 30 RF: 0 acetaminophen 500 mg tablet 500 mg PO Q6H PRN (Reason: pain) Qty: 60 RF: 2 pantoprazole 40 mg tablet,delayed release (DR/EC) 40 mg PO DAILY 30 Days Qty: 30 RF: 0 docusate sodium [Colace] 100 mg capsule 100 mg PO BID Qty: 30 RF: 0 oxycodone 5 mg tablet 5 mg PO Q6H PRN (Reason: severe post-operative pain) Qty: 12 RF: 0 Continued (DME) Accu-Chek Guide test strips Strip 1 ea Miscellaneous DAILY Qty: 300 RF: 3 (DME) lancets Misc 1 ea Miscellaneous DAILY Qty: 300 RF: 3 magnesium 250 mg tablet 500 mg PO HS RF: 0 amlodipine 10 mg tablet 10 mg PO DAILY Qty: 90 RF: 3 aspirin 325 MG tablet 325 mg PO DAILY RF: 0 atorvastatin 40 mg tablet 40 mg PO DAILY Qty: 90 RF: 3 losartan 100 mg tablet 100 mg PO DAILY Qty: 90 RF: 3 ropinirole 2 mg tablet 2 mg PO TID Qty: 270 RF: 3 (DME) blood-glucose meter [Accu-Chek Guide Glucose Meter] Misc See Rx Instructions .ROUTE .MEDSUPPLY Qty: 1 RF: 0 (DME) insulin syringe-needle U-100 [BD Insulin Syringe Ultra-Fine] 1 mL 31 gauge x 5/16 syringe See Rx Instructions .ROUTE .MEDSUPPLY Qty: 10 RF: 0 duloxetine 30 mg capsule,delayed release(DR/EC) 30 mg PO DAILY Qty: 90 RF: 3 metformin 1,000 mg tablet 1,000 mg PO BID Qty: 180 RF: 3 chlorthalidone 50 mg tablet 100 mg PO DAILY Qty: 180 RF: 3 Novolin N NPH U-100 Insulin 100 unit/mL suspension See Rx Instructions SC .COMPLEX Qty: 10 RF: 5 spironolactone [Aldactone] 25 mg tablet 12.5 mg PO DAILY Qty: 30 RF: 2 hydroxyurea 500 mg capsule 1,000 mg PO DAILY RF: 0 Discontinued acetaminophen [Tylenol Extra Strength] 500 MG tablet 500 mg PO daily prn RF: 0 diphenhydramine-acetaminophen [Tylenol PM Extra Strength] 25-500 mg Tablet 3 tab PO PRN PRNRF: 0 Discharge Instructions Additional Instructions: Total Hip Discharge Instructions Activity: The most important activity is to walk. You should try to take short walks a few times a day. You have no restrictions on movement or positioning, but do not try to force what you do. You will find some stiffness and weakness with hip flexion (lifting your knee). Do not try to strengthen this too early, continue to practice walking and stairs and this will come. - Outpatient physical therapy can be helpful to help return you to a normal gait and improve your flexibility and strength. This can start around 2 weeks. For some patients, it?s not necessary. Usually this is determined at the time of discharge or at the first post-operative visit. - You should wear the JORGE hose on both legs for 2 weeks. Dressing: Keep the surgical dressing in place for at least one week. After the first week it may be removed and replace with light gauze and tape or nothing. It may get wet after 3 days but avoid soaking the dressing. If it gets wet, just lightly pat dry. It is important to always keep some gauze between skin folds, especially when you are sitting. Spend some time with the wound exposed when you are lying flat as the incision does wrinkle onto itself. Medications: - You should take Tylenol and an anti-inflammatory Celebrex as your primary pain control medications. If the Celebrex is too expensive or not covered, please call the office for another alternative (Advil/Ibuprofen or Naproxen/Aleve). - You have been prescribed a stronger pain medication Oxycodone for breakthrough pain, take as needed as prescribed. - You have also been prescribed a stomach acid reduction agent Pantoprozole to help reduce stomach acid and reflux. - You currently take Aspirin 325 mg daily - continue with this medication for DVT prevention unless instructed otherwise. - If you have constipation you should take Colace (which has been prescribed) or Miralax (which you may purchase [id number]). It takes most people 3-4 days to have a bowel movement. Follow-up: 2 weeks If you have any acute concerns or questions, please do not hesitate to contact the office at [phone]. You may contact Dr. Carlson with any questions after hours through the hospital at [phone] or on his cell phone at [phone]. Referrals: Zurdo Carlson MD [ [facility] STAFF PHYSICIAN] - 08/18/20 11:45 am Activity:: Activity as Tolerated Equipment/Supplies:: Walker Diet:: As Tolerated Discharge Orders Discharge Orders: Discharge Order (Routine); Ordered 08/04/20 Ordered By: Zurdo Carlson DS: Summary Status at Discharge Functional status at discharge: uses cane/walker Overall status at discharge: patient is progressing back to baseline Mental Status: mental status grossly normal Speech and Movement: speech and movement normal Mood: congruent mood Affect: normal affect Exam Psych Mental Status: mental status grossly normal Speech and Movement: speech and movement normal Mood: congruent mood Affect: normal affect [facility] Medical History Depression Diabetes mellitus, type II diabetes with peripheral vascular disease Hip pain, right Hypertension Surgical History Angioplasty L leg 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 Sister Skin cancer Brother No problems noted. Son Alcohol abuse Depression Maternal Grandfather Stomach cancer Paternal Grandfather No problems noted. Maternal Grandmother No problems noted. Paternal Grandmother No problems noted. Daughter Depression Social History Smoking/Tobacco Use Status: Former Tobacco Use Tobacco: How many years used: 37 Smoking risk assessment performed?: Yes Drug use: Never Household members: spouse Housing: house Do you need help understanding health information?: Rarely current occupation: [employer] Pets and animals: Yes Pets and animals: cat(s) Sexually active: No Do you think of yourself as: straight/heterosexual Current gender identity: female What is your relationship status?: How often do you talk on the phone with friends or family?: once per week How often do you get together with friends or relatives?: decline to answer How often do you attend samaritan or samaritan services?: 1-3 times per year Do you belong to any clubs or organized social groups?: no Panel score (0-1 are the most socially isolated patients): 1 What type of physical activity do you participate in: none Carmelina/Judaism: Muslim Special carmelina needs: No Seatbelt use: always Drive intox 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 paratransit driver: No Do you feel safe at home: Yes Do you feel safe in your relationship?: Yes Would you like helpful sources: No
[2020-08-03] MEDS: ceFAZolin 2 GM/50 ML BAG IVPB (10:13)
[2020-08-03] MEDS: methylPREDNISolone ACETATE 80 MG/ML VIAL (10:40)
[2020-08-03] MEDS: Lidocaine 1% Pres-Free 5 ML VIAL (10:40)
[2020-08-03] MEDS: Bupivacaine 0.25% Pres-Free 30 ML VIAL (11:41)
[2020-08-03] MEDS: Ketorolac 30 MG/ML VIAL (11:41)
--- NOTE | 2020-08-03 13:03 | W.PM.OP ---
Date of service: 08/03/20 Time of Service: 12:03 Operative Note Operative Note DATE OF PROCEDURE: 08/03/20 PRE-OP DIAGNOSIS: Right Hip Osteoarthritis POST-OP DIAGNOSIS: same PROCEDURE: Right Anterior Total Hip Arthroplasty SURGEON: Zurdo Carlson JOB PRINTER: Crystal Jean Baptiste ANESTHESIA: spinal ESTIMATED BLOOD LOSS: 250 PATHOLOGY: none sent TOURNIQUET TIME: 0 COMPLICATIONS: None Patient was transported to: PACU Patient's condition: stable Implants: 1. Depuy Gore Acetabular Component, 52mm 2. Depuy Acetabular Liner, 27x64di 3. Depuy Corail Standard Collared Femoral Stem, Size 12 4. Depuy Altrx Ceramic Femoral Head, Size 36+8.5mm Indications: I have seen Emilia in clinic for symptoms of hip arthritis, confirmed with radiographic findings. Emilia has exhausted nonoperative methods and was having significant limitations in daily function and desired better function and less pain. I discussed the technical details of a hip replacement. I explained the risks of the procedure to include, but not limited to, bleeding, infection, pain, stiffness, fracture, damage to nerves and vessels, damage to muscles and tendons, loosening, instability, leg length inequality, need for repeat procedure, blood clot and cardiopulmonary demise. Despite these risks, Emilia elected to proceed. Findings: There was significant signs of arthritis throughout the hip. Large osteohytes were present around the acetabulum and femoral head. Procedure Description: Emilia was greeted in the preoperative holding area where the correct side was identified and marked. The consent was reviewed with the patient and signed. The history and physical was updated. All questions were answered. She was taken back to the operating room. A spinal anesthestic was then administered. The right foot was wrapped with cast padding and Coban and the left leg prosthesis was kept in place, and then both were placed into the boot liners and then into the boots. Care was taken to protect the skin and make sure the heels were fully down and the boots were stable. The patient was then positioned onto the HANA table. Both legs were held in a neutral position. SCDs were applied. The patient was then slid down onto a peroneal post. A preoperative AP pelvis was obtained to serve as a reference for determining leg lengths. Prophylactic antibiotics in the form of Cefazolin were administered. 1g of Tranxemic Acid was given intravenously within 30 minutes of incision. The right leg was then prepped with Chloraprep and draped in a standard fashion. A second prep with Chloraprep was performed prior to placement of a shower-curtain type drape with Iodine impregnated skin protection. A timeout to confirm correct identity, side and site, procedure, allergies, anesthesia, and medical concerns was performed. An obliquely oriented incision was made starting lateral to the ASIS and running distal over the Tensor Fascia Norma (TFL) muscle belly toward the fibular head, approximately 10cm. The skin and soft tissue was dissected sharply, through Jonelle?s fascia, and to the fascia of the TFL. With the fascia and superior border of the IT band identified, the fascia was incised with a new knife just above any perforators from the IT band. The TFL muscle belly was bluntly dissected away from the fascia and moved laterally. The fat between TFL and rectus was identified to ensure the dissection was not within the TFL. Blunt dissection created space between abductors and the capsule and retractor was placed over the lateral femoral neck. The fibers of the rectus femoris tendon were identified and these were freed from the anterior capsule. A second cobra retractor was placed around the medial femoral neck. The TFL was further retracted laterally to show the deep fascia. Careful dissection through this layer identified three main crossing vessels of the lateral femoral circumflex. These were cauterized in multiple locations and then cut without any noticeable bleeding. The TFL was further released bluntly from the deep fascia to expose anterior hip capsule and fat The Derik orthopaedic retractor was then placed beneath the TFL and against sartorius and medial soft tissues to protect and retract the soft tissues. A T-capsulotomy was then performed starting at the superior lateral acetabulum and moving distally to the intertrochanteric ridge. These capsular flaps were tagged with a No. 1 Ethibond and elevated from within. The capsular flaps were released to the shoulder of the lateral neck and to the lesser trochanter to give excellent visualization of the proximal femur. A neck osteotomy was performed using an oscillating saw based on preoperative templates. This cut started in the shoulder and of the lateral neck and exited medially. The saw was at all times directed medially to avoid injury to the greater trochanter. Traction was applied to the leg and the osteotomy opened. The femoral head was removed with a corkscrew, making sure to protect the TFL on its exit. Traction was released after head removal. This was measured on the back table to determine the starting reamer size. Portions of the rectus obscuring visualization were minimally elevated off the superior acetabulum. An anterior retractor was placed over the anterior wall between capsule and labrum and attached to the Gripper retraction system. The femur was rotated to 90 degrees and medial capsule was fully released until the lesser trochanter was palpable and visible; the femur was returned to 30 degrees. A posterior retractor was placed similarly between capsule and labrum. This provided excellent visualization. The contents of the cotyloid fossa were removed with electrocautery and the labrum was removed with a knife. There was a notable floor osteophyte. There was significant chondromalacia of the superior acetabulum. Acetabular reaming began with a 46mm reamer. This first reaming was directed anterior to posterior and medial to get down to the true floor. This was inspected and reamed until the true floor was reached. The anterior retractor was then released and entry and exit was provided by traction on the capsular flaps. I then reamed sequentially up to a 51mm reamer where good fit was obtained. The larger reamers were oriented based on anatomical reference of the anterior and lateral redmond to ensure proper abduction and anteversion. Positioning and size was confirmed with the fluoroscopy. A 52mm Depuy Gore acetabular component was selected. The acetabulum was reamed around the periphery with the selected acetabular size to prevent a rim fit. The deep tissues were irrigated. The acetabular component was then impacted in a position of about 40-45 degrees of abduction and 15-20 degrees of anteversion, using the patient?s anatomy as the ultimate landmark. Fluoroscopy was used to confirm this. There was excellent correctional facility nurse of the acetabular component and the inserting handle was removed. The acetabular liner, Depuy [id number] polyethylene liner, was inserted and lined up with the tines of the acetabular component. There was no soft tissue interposition. The liner was then impacted into position and confirmed to be well-seated. A portion of the naldo-articular cocktail was then injected around the acetabulum into the capsule and periosteum. This cocktail consisted of 50cc of 0.25% Bupivicaine and 20cc of Exparel and 30mg of Ketorolac. The leg was rotated to 120 degrees. Any remaining medial capsule was released until the lesser trochanter was easily palpable. A retractor was placed medially. The lateral capsule was further released into the shoulder to allow access to the greater trochanter. A Oconnor retractor was placed over the greater trochanter which allowed the trochanter to flip in front of the capsule for excellent exposure. The leg was brought down into maximal extension and 20 degrees of adduction while ensuring there was no impingement on the acetabulum. Any remnant capsule within the trochanter was released. Piriformis and obturator externis were identified and protected. There was excellent access to the proximal femur. The lateral neck remnant was removed with a rongeur. A blunt canal probe was used to identify the canal and trajectory for later broaching. A box osteotome initiated the broach course. A small curved rasp and a curved curette were used to work laterally. Broaching then began with a size 8 Corail broach. This was inserted manually around the trochanter and into the canal before mallet blows. The broach was seated to a few millimeters below the cut level based on the neck cut and the preoperative template. Sequential broaching was continued with the [employer] pneumatic broaching device until a tight fit was obtained with good rotational control of the femur. A trial coxa vara neck was inserted along with a +1.5 trial head. The leg was brought out of extension and adduction and then reduced with traction and internal rotation. The leg was stable anteriorly in a position of 30 degrees of extension and 90 degrees of external rotation. Fluoroscopy was used to ensure there was no fracture and the stem was seated well. Leg lengths were checked with an AP pelvis and pelvic reference points. [employer] navigation system was used to confirm appropriate positioning and leg length and offset. This seemed to not adequately gain the leg length we are hoping for. It also seems to underestimate the amount of offset. Therefore, I trialed a standard neck with a +8.5 head. This was stable upon reduction and an AP pelvis with alignment yanira was used to evaluate leg length and offset. Once content with the desired offset and leg lengths, the leg was brought back into extension, external rotation and adduction. The periosteum and surrounding tissue was injected with remaining portion of the naldo-articular cocktail. The proximal femur was irrigated as well as the deep tissues. The [employer] Corail standard collared stem, size 12, was then manually inserted into the proximal femur making sure to control rotation. It was then malleted into position with light blows, giving breaks to allow bone expansion and decrease risk of fracture. The selected Depuy Altrx Ceramic Head, size 36+8.5mm, was then placed onto the clean and dry trunnion and secured with impaction onto the tapered fit. The leg was brought back out of extension and adduction and reduced with traction and internal rotation. Stability was confirmed with no shuck at 90 degrees of external rotation and 30 degrees of extension. No impingement through range of motion arc. Final x-ray images were obtained with fluoroscopy to confirm adequate positioning and no intraoperative fracture. The deep tissues were thoroughly irrigated with Irrisept chlorhexadine solution. The second dose of TXA 1g was administered intravenously. The capsule was then reapproximated with the previously placed Ethibond sutures. The TFL fascia was finally closed with a No. 2 Stratafix, barbed suture. Deep tissues were then reapproximated with 0 Vicryl and a running 2-0 Vicryl. The skin was closed with a running 4-0 Monocryl in a subcuticular fashion. This was reinforced with skin glue. A Mepilex silver dressing was applied. At the end of the case, all counts were correct. Emilia was transferred to the hospital bed without difficulty and suffering no apparent complication. Emilia has a good prognosis. Physical therapy will start today and without restrictions, weight-bearing as tolerated. Aspirin 81mg BID will be used for DVT prophylaxis.
[2020-08-03] MEDS: diphenhydrAMINE 50 MG/ML VIAL 25 MG IVP (13:27)
[2020-08-03] MEDS: Normal Saline Flush 10 ML SYR IV ×2 (13:29→16:14)
[2020-08-03] MEDS: oxyCODONE 5 MG TAB PO ×3 (15:23→21:13)
--- NOTE | 2020-08-03 15:30 | IN_ITS ---
Date of service: 08/03/20 Time of Service: 14:49 PT Notes Visit Reasons: R HIP DJD Physical Therapy Inpatient Initial Evaluation Date: 08/03/2020 Referring Doctor: HUDSON Phillips PT Orders: PT CONSULT: S/P Ortho surgery Precautions: Fall. Standard. WBAT ON R LE. L BK prosthesis on. Patient Profile/Admitting Diagnosis: Emilia is a 69-year-old female with primary unilateral osteoarthritis of the right hip and is status post right total hip arthroplasty on postoperative day 0. 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 Independent with indoor ambulation without assistive device using left below-knee prosthesis; uses single-point cane for non-level ground surfaces outdoors prior to surgery. Equipment Owned/DME: FWW. SPC Subjective: Reports pain in the R knee at 8/10 and at the tip of her residual limb on the L at about 4-5/10. Reported being lightheaded during ambulation requiring a seated rest after about 20 feet of in room ambulation using the walker. Declined doing anything further during a second attempt at mobility training half an hour later due to pain, continued lightheadedness, and shakiness. Emilia does not feels safe going home today and is agreeable to staying overnight and doing another PT session for mobility retraining. Objective: General Observation: BK posthesis in room. Area of mild erythema on the L lateral end of stump noted. Mepilex Ag over surgical incision. TEDS on R LE. Nurse Salazar present durin initial evaluation. Mental Status: Alert and oriented x4 Pain: 8/10 in the right knee, 4/5 at the tip of the left residual limb and right hip Vital Signs: WNL as closely monitored by nurse Salazar ROM: Right Upper Extremity: Shoulder Flexion WFL. Shoulder abduction WFL. Elbow flexion WFL. Wrist flexion WFL. Opening and closing of hand WFL. Left Upper Extremity: Shoulder Flexion WFL. Shoulder abduction WFL. Elbow flexion WFL. Wrist flexion WFL. Opening and closing of hand WFL. Right Lower Extremity: Hip flexion WFL. Hip abduction WFL. Knee flexion WFL. Ankle dorsiflexion WFL. Ankle plantarflexion WFL. Left Lower Extremity: Hip flexion WFL. Hip abduction WFL. Knee flexion WFL. Ankle dorsiflexion WFL. Ankle plantarflexion WFL. Strength: Right Upper Extremity: Shoulder flexors 5/5. Shoulder abductors 5/5. Elbow flexors 5/5. Elbow extensors 5/5. Fish Machine Feeder strong. Left Upper Extremity: Shoulder flexors 5/5. Shoulder abductors 5/5. Elbow flexors 5/5. Elbow extensors 5/5. Fish Machine Feeder strong. Right Lower Extremity: Hip flexors 4/5. Hip abductors 4/5. Knee flexors 4/5. Knee extensors 4/5. Ankle dorsiflexors 5/5. Ankle plantarflexors 5/5. Left Lower Extremity:Hip flexors 5/5. Hip abductors 5/5. Knee flexors 4/5. Knee extensors 4/5. Sensation: Numb in bilateral gluteal areas and R proximal thigh posteriorly. Bed Mobility/Transfers: Rolling independent Supine to sit independent Sit to stand contact guard assist Stand to sit contact guard assist Bed to chair contact guard assist Chair to bed contact guard assist Gait: 20 feet using front wheeled walker with step-through gait pattern requiring contact guard assist. Increased lean to L to favor the R LE due to pain which exacerbates L residual limb pain. Pain in the right knee and 4/5 pain in the R thigh and right hip area. Reported lightheadedness which required seated rest. An attempt at continuing mobility assessment half an hour later was made but Emilia stated that she is not up to doing anything as her pain remains above 5/10 and her L LE appears to be more restless. Balance: Static Sitting: Normal Dynamic Sitting: Normal Static Standing: Fair Dynamic Standing: Fair Special Tests: Mobility Limitations Standardized Measure [facility] AM-PAC 6 clicks Basic Mobility Inpatient Short Form: Raw Score: 19% deficit CMS Score: 42% deficit Informed Consent/Education: Patient instructed in purpose of PT consult and plan of care. Assessment: Emilia demonstrates functional mobility decline requiring the use of all mobility ADL difficulty with ambulation, impairment with balance, and creased falls due to post operative status and co-morbidities. Another session was attempted half an hour later but due to pain, continued lightheadedness, and L residual limb shakiness, patient declined to do anything more. Nurse Marie was made aware of patient status and sentiments who notified orthopedic surgeon of recommendations for safety. Patient presents with clinical signs and symptoms consistent with current/admitting diagnoses that have resulted to mobility limitations, gait instability, generalized weakness, and impairment of motor control as demonstrated by the following impairment level findings: 1. Decreased strength to R hipmajor muscle groups 2. Impaired standing balance/tolerance 3. Impaired activity tolerance 4. Pain in R hip, R knee and lateral tip of L residual limb 5. Lightheadedness Impairments are contributing to the following functional limitations: 1. Increased dependence with transfers 2. Inability to safely ambulate without assistive device and physical assistance 4. Increase completion time for mobility ADL performance 5. Increased fall risk 6. Inability to negotiate steps alone safely Patient is assessed as a 68076 moderate complexity based on the following: History: 69-year-old female with impairment level findings, functional limitations, and past medical history as indicated above Examination: Demonstrable impairment in strength, balance, and mobility level with underlying impairments and functional limitations as documented above Presentation:Evolving Decision Makin moderate complexity Goals: Goals X 3 days 1. Supine-Sit independent 2. Sit-Supine independent 3. Sit-Stand independent 4. Stand-Sit independent 5. Bed-Chair independent 6. Chair-Bed independent 7. Independent gait on level surface with use of FWW for at least 200 feet without report of pain nor dyspnea 8. Independent stair negotiation while holding onto unilateral rail for at least 10 steps without report of pain nor dyspnea 9. Independent with home exercise program 10. Good static and dynamic standing balance/tolerance Plan of Care/Treatment Plan: 1-2x/day, 7 days/week x 3 days. Plan of care has been reviewed with the ENGINEERING ANALYST providing the service under Physical Therapy direction. Initiate Physical Therapy intervention for strengthening, bed mobility, transfers, gait, stairs, balance training, use of assistive device. DISCHARGE RECOMMENDATIONS: Home when medically cleared by orthopedic surgeon. Needs more education and training for functional mobility performance using the FWW on level surface and SPC on the stairs. TREATMENT CODE/TIME: 76039 x 25 minutes, 69949 x 10 minutes beginning at 14:49 PM. Thank you for the opportunity to participate in the care of this patient. Charisma Tran PT, DPT, CLT [facility] [place], [place]
[2020-08-03] MEDS: ceFAZolin 1 GM/50 ML BAG IVPB (16:15)
[2020-08-03] MEDS: Insulin Aspart 300 UNITS/3 ML PEN SC (17:47)
[2020-08-03] MEDS: rOPINIRole 1 MG TAB 2 MG PO (19:38)
[2020-08-03] MEDS: Celecoxib 200 MG CAP PO (19:39)
[2020-08-03] MEDS: metFORMIN 500 MG TAB 1000 MG PO (19:39)
[2020-08-03] MEDS: Insulin NPH-Human 300 UNITS/3 ML PEN 28 UNIT SC (21:22)
[2020-08-03] MEDS: Magnesium Gluconate 500 MG TAB PO (21:28)
[2020-08-04] MEDS: Normal Saline Flush 10 ML SYR IV ×2 (00:43→09:39)
[2020-08-04] MEDS: ceFAZolin 1 GM/50 ML BAG IVPB ×2 (00:45→07:58)
[2020-08-04] MEDS: oxyCODONE 5 MG TAB PO (00:45)
[2020-08-04 03:03] VITALS: BP 131/62; PULSE 67; RESP 17; TEMP 36.3; O2SAT 92
[2020-08-04 07:25] VITALS: BP 161/70; PULSE 66; RESP 17; TEMP 36.7; O2SAT 95
[2020-08-04 07:50] VITALS: O2SAT 96
[2020-08-04] MEDS: rOPINIRole 1 MG TAB 2 MG PO (07:53)
[2020-08-04] MEDS: amLODIPine 10 MG TAB PO (07:54)
[2020-08-04] MEDS: Spironolactone 25 MG TAB 12.5 MG PO (07:54)
[2020-08-04] MEDS: DULoxetine 30 MG CAP PO (07:54)
[2020-08-04] MEDS: Hydroxyurea 500 MG CAP 1000 MG PO (07:54)
[2020-08-04] MEDS: Aspirin 325 MG TAB PO (07:55)
[2020-08-04] MEDS: metFORMIN 500 MG TAB 1000 MG PO (07:55)
[2020-08-04] MEDS: Acetaminophen 500 MG TAB 1000 MG PO (07:55)
[2020-08-04] MEDS: Atorvastatin 40 MG TAB PO (07:55)
[2020-08-04] MEDS: Losartan 50 MG TAB 100 MG PO (07:55)
[2020-08-04] MEDS: Celecoxib 200 MG CAP PO (07:56)
[2020-08-04] MEDS: Chlorthalidone 25 MG TAB 100 MG PO (07:56)
[2020-08-04] MEDS: Pantoprazole 40 MG TABCR PO (07:57)
[2020-08-04] MEDS: Insulin NPH-Human 300 UNITS/3 ML PEN 8 UNIT SC (07:58)
--- NOTE | 2020-08-04 08:28 | PT.INIE ---
Date of service: 08/04/20 Time of Service: 08:22 PT Notes Visit Reasons: R HIP DJD Physical Therapy Inpatient Initial Evaluation (Med Surg) Date: 08/04/2020 Referring Doctor: Zurdo Carlson MD PT Orders: PT CONSULT: S/P Ortho surgery Precautions: Fall. Standard. WBAT ON R LE. L BK prosthesis on. Patient Profile/Admitting Diagnosis: Emilia is a 69-year-old female with primary unilateral osteoarthritis of the right hip and is status post right total hip arthroplasty on postoperative day 1. 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 Independent with indoor ambulation without assistive device using left below-knee prosthesis; uses single-point cane for non-level ground surfaces outdoors prior to surgery. Equipment Owned/DME: FWW. SPC Subjective: This morning reported increased burning and tingling on the R lateral thigh area. Reports pain in the R knee at 5/10. The tip of her residual limb on the L now at 0/10. NO report of lightheadedness and does not feel shaky as yesterday. Is willing to work with MANAGER OF DIGITAL for more level surface ambulation and stairs training. Objective: General Observation: BK posthesis in room. Area of mild erythema on the L lateral end of stump now resolved. Mepilex Ag over surgical incision. TEDS on R LE. Mental Status: Alert and oriented x4 Pain: 5/10 in the right knee, 0/5 at the tip of the left residual limb and right hip ROM: Right Upper Extremity: Shoulder Flexion WFL. Shoulder abduction WFL. Elbow flexion WFL. Wrist flexion WFL. Opening and closing of hand WFL. Left Upper Extremity: Shoulder Flexion WFL. Shoulder abduction WFL. Elbow flexion WFL. Wrist flexion WFL. Opening and closing of hand WFL. Right Lower Extremity: Hip flexion WFL. Hip abduction WFL. Knee flexion WFL. Ankle dorsiflexion WFL. Ankle plantarflexion WFL. Left Lower Extremity: Hip flexion WFL. Hip abduction WFL. Hip extension up to 20 degrees during ambulation activity. Knee flexion 0-90 degrees. Strength: Right Upper Extremity: Shoulder flexors 5/5. Shoulder abductors 5/5. Elbow flexors 5/5. Elbow extensors 5/5. Catering Coordinator strong. Left Upper Extremity: Shoulder flexors 5/5. Shoulder abductors 5/5. Elbow flexors 5/5. Elbow extensors 5/5. Catering Coordinator strong. Right Lower Extremity: Hip flexors 4/5. Hip abductors 4/5. Knee flexors 4/5. Knee extensors 4/5. Ankle dorsiflexors 5/5. Ankle plantarflexors 5/5. Left Lower Extremity:Hip flexors 5/5. Hip abductors 5/5. Knee flexors 4/5. Knee extensors 4/5. Sensation: Increased burning and tingling on the R lateral thigh area with ambulation activity. Bed Mobility/Transfers: Rolling independent Supine to sit independent Sit to stand SBA with FWW and L BK prosthesis Stand to sit SBA with FWW and L BK prosthesis Bed to chair SBA with FWW and L BK prosthesis Chair to bed SBA with FWW and L BK prosthesis Gait: 40 feet using front wheeled walker with step-through gait pattern requiring contact guard assist. Step through gait. 5/10 burning and tingling on the lateral thigh in the R. No report of dizziness nor headache, chest pain throughout. Balance: Static Sitting: Normal Dynamic Sitting: Normal Static Standing: Fair Dynamic Standing: Fair Special Tests: Mobility Limitations Standardized Measure [facility] 6 clicks Basic Mobility Inpatient Short Form: Raw Score: 19% deficit CMS Score: 42% deficit Informed Consent/Education: Patient instructed in purpose of PT consult and plan of care. Assessment: Emilia demonstrates functional mobility decline requiring the use of all mobility ADL difficulty with ambulation, impairment with balance, and creased falls due to post operative status and co-morbidities. Another session was attempted half an hour later but due to pain, continued lightheadedness, and L residual limb shakiness, patient declined to do anything more. Nurse Salazar was made aware of patient status and sentiments who notified orthopedic surgeon of recommendations for safety. Patient presents with clinical signs and symptoms consistent with current/admitting diagnoses that have resulted to mobility limitations, gait instability, generalized weakness, and impairment of motor control as demonstrated by the following impairment level findings: 1. Decreased strength to R hipmajor muscle groups 2. Impaired standing balance/tolerance 3. Impaired activity tolerance 4. Pain in R hip, R knee and lateral tip of L residual limb Impairments are contributing to the following functional limitations: 1. Increased dependence with transfers 2. Inability to safely ambulate without assistive device and physical assistance 4. Increase completion time for mobility ADL performance 5. Increased fall risk 6. Inability to negotiate steps alone safely Patient is assessed as a 37096 moderate complexity based on the following: History: 69-year-old female with impairment level findings, functional limitations, and past medical history as indicated above Examination: Demonstrable impairment in strength, balance, and mobility level with underlying impairments and functional limitations as documented above Presentation:Evolving Decision Makin moderate complexity Goals: Goals X 3 days 1. Supine-Sit independent 2. Sit-Supine independent 3. Sit-Stand independent 4. Stand-Sit independent 5. Bed-Chair independent 6. Chair-Bed independent 7. Independent gait on level surface with use of FWW for at least 200 feet without report of pain nor dyspnea 8. Independent stair negotiation while holding onto unilateral rail for at least 10 steps without report of pain nor dyspnea 9. Independent with home exercise program 10. Good static and dynamic standing balance/tolerance Plan of Care/Treatment Plan: 1-2x/day, 7 days/week x 3 days. Plan of care has been reviewed with the MANAGER OF DIGITAL providing the service under Physical Therapy direction. Initiate Physical Therapy intervention for strengthening, bed mobility, transfers, gait, stairs, balance training, use of assistive device. DISCHARGE RECOMMENDATIONS: Home when medically cleared by orthopedic surgeon. Needs more education and training for functional mobility performance using the FWW on level surface and SPC on the stairs. TREATMENT CODE/TIME: 87705 x 22 minutes beginning at 8:28 AM. Thank you for the opportunity to participate in the care of this patient. Charisma Tran PT, DPT, CLT [facility] [place], [place]
[2020-08-04] MEDS: HYDROmorphone 2 MG/ML VIAL 0.5 MG IVP (09:39)
--- NOTE | 2020-08-04 10:59 | PTTR_ITS ---
Date of service: 08/04/20 Time of Service: 09:10 PT Notes Visit Reasons: R HIP DJD Inpatient Physical Therapy Treatment Note [facility] Date: 08/04/2020 PRECAUTIONS: Fall, WBAT R LE SUBJECTIVE: Mary is agreeable to participating in PT. OBJECTIVE: PAIN: Patient complained of R LE pain with gait training, stair negotiation, and ther ex completion BED MOBILITY/TRANSFERS Sit-stand: S Stand-sit: S GAIT Assistive Device: FWW Weight bearing: WBAT R LE Assist: S Distance: 250' Deviation: Cueing for increased step length on L, knee immobilizer THEREX: Patient was instructed in a LE strengthening and stabilization program, in a supine position, as per flow sheet. STAIRS: Up/down 3x4 and 2x6 using U rail/SPC and a step-to pattern with supervision ASSESSMENT: Patient demonstrates improved gait distance utilizing FWW support wi th supervision. She was able to tolerate stair negotiation, well. She continues to have pain in the R hip area, but demonstrates improvements in gait and transfers at this time. PLAN: Patient to be discharged to home later today. TREATMENT CODE/TIME: 40 minutes; 84826 x2, [id number]
[2020-08-04 11:33] VITALS: BP 119/53; PULSE 67; RESP 16; TEMP 36.9; O2SAT 96
[2020-08-04] MEDS: Insulin Aspart 300 UNITS/3 ML PEN SC (12:24)
--- NOTE | 2020-08-04 16:00 | PT.INDS ---
Date of service: 08/05/20 Time of Service: 16:36 PT Notes Visit Reasons: R HIP DJD Physical Therapy Inpatient Discharge Summary Date: 08/05/2020 Referring Doctor: Zurdo Carlson MD PT Orders: PT CONSULT: S/P Ortho surgery Precautions: Fall. Standard. WBAT ON R LE. L BK prosthesis on. Patient Profile/Admitting Diagnosis: Emilia is a 69-year-old female with primary unilateral osteoarthritis of the right hip and is status post right total hip arthroplasty on postoperative day 1. 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 Independent with indoor ambulation without assistive device using left below-knee prosthesis; uses single-point cane for non-level ground surfaces outdoors prior to surgery. Equipment Owned/DME: FWW. SPC Subjective: NT. See most recent PUMP HOUSE OPERATOR notes. Objective: General Observation: NT. See most recent PUMP HOUSE OPERATOR notes. Mental Status: NT. See most recent PUMP HOUSE OPERATOR notes. Pain: NT. See most recent PUMP HOUSE OPERATOR notes. ROM: Right Upper Extremity: Shoulder Flexion WFL. Shoulder abduction WFL. Elbow flexion WFL. Wrist flexion WFL. Opening and closing of hand WFL. Left Upper Extremity: Shoulder Flexion WFL. Shoulder abduction WFL. Elbow flexion WFL. Wrist flexion WFL. Opening and closing of hand WFL. Right Lower Extremity: Hip flexion WFL. Hip abduction WFL. Knee flexion WFL. Ankle dorsiflexion WFL. Ankle plantarflexion WFL. Left Lower Extremity: Hip flexion WFL. Hip abduction WFL. Hip extension up to 20 degrees during ambulation activity. Knee flexion 0-90 degrees. Strength: Right Upper Extremity: Shoulder flexors 5/5. Shoulder abductors 5/5. Elbow flexors 5/5. Elbow extensors 5/5. Technical Project Coordinator strong. Left Upper Extremity: Shoulder flexors 5/5. Shoulder abductors 5/5. Elbow flexors 5/5. Elbow extensors 5/5. Technical Project Coordinator strong. Right Lower Extremity: Hip flexors 4/5. Hip abductors 4/5. Knee flexors 4/5. Knee extensors 4/5. Ankle dorsiflexors 5/5. Ankle plantarflexors 5/5. Left Lower Extremity:Hip flexors 5/5. Hip abductors 5/5. Knee flexors 4/5. Knee extensors 4/5. Sensation: Increased burning and tingling on the R lateral thigh area with ambulation activity. Bed Mobility/Transfers: Rolling independent Supine to sit independent Sit to stand supervision with FWW and L BK prosthesis Stand to sit supervision with FWW and L BK prosthesis Bed to chair supervision with FWW and L BK prosthesis Chair to bed supervision with FWW and L BK prosthesis Gait: 250 feet using front wheeled walker with step-through gait pattern requiring contact guard assist. Step through gait. 5/10 burning and tingling on the lateral thigh in the R. No report of dizziness nor headache nor chest pain throughout. Balance: Static Sitting: Normal Dynamic Sitting: Normal Static Standing: Fair Dynamic Standing: Fair Assessment: Emilia demonstrates improvement in functional mobility level during this episode of care. She will benefit from OP PT services in order to maximize return to independent premorbid level. Goals: Goals X 3 days 1. Supine-Sit independent MET 2. Sit-Supine independent MET 3. Sit-Stand independent NOT MET 4. Stand-Sit independent NOT MET 5. Bed-Chair independent NOT MET 6. Chair-Bed independent NOT MET 7. Independent gait on level surface with use of FWW for at least 200 feet without report of pain nor dyspnea NOT MET 8. Independent stair negotiation while holding onto unilateral rail for at least 10 steps without report of pain nor dyspnea NOT MET 9. Independent with home exercise program NOT MET 10. Good static and dynamic standing balance/tolerance NOT MET DISCHARGE RECOMMENDATIONS: Home when medically cleared by orthopedic surgeon. OP PT in 2 weeks or as deemed necessary by orthopedic surgeon on the 2-week ortho follow up. TREATMENT CODE/TIME: SD Thank you for the opportunity to participate in the care of this patient. Charisma Tran PT, DPT, CLT [facility] [place], [place]
--- NOTE | 2020-08-04 16:30 | PDOC.CMIN ---
- If Service Date Differs Date of service: 08/04/20 Time of Service: 16:30 Care Management Initial Assess REASON FOR HOSPITALIZATION:: R Hip DJD PAST MEDICAL HISTORY/PAST SURGICAL HISTORY:: Medical History (Updated 07/04/20 @ 18:15 by Crystal Jean Baptiste). Depression. diabetes with peripheral vascular disease. Hip pain, right. Hypertension and in is it yes and as. Surgical History (Updated 07/04/20 @ 18:15 by Crystal Jean Baptiste). Angioplasty. L leg. BKA L leg. 08/2013. Stent R leg PREVIOUS FUNCTIONAL STATUS/SOCIAL/FAMILY SUPPORTS:: Mary lives in [facility] with her and her great grand daughter, who she has raised as her own since she was 18 months old. 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 She has a BKA, which she has had since 2012. She is independent at baseline. CURRENT FUNCTIONAL STATUS:: Mary was sitting up in her chair when CM met with her. She stated that she is doing well, although she has some pain in her leg. She reported that she has had a lot of pain from her hip, so she will be glad when she heals and does not have as much pain. She reported that she had not seen the provider but expects to in the afternoon, when they will determine if she will discharge home today. CM will continue to follow. ADVANCE DIRECTIVES:: On file, Juan listed as agent. Has patient been provided with info about the portal/API?: Yes Did the patient sign up for the portal?: Yes (previously) CODE STATUS:: Full Code INSURANCE COVERAGE / FINANCIAL ISSUES:: [facility]/ BCBS CURRENT HOME/COMMUNITY SERVICES/EQUIPMENT:: Mary has a FWW, provided by [facility]. She also has a prosthetic left lower leg. PRIMARY CARE PHYSICIAN:: Gui Graham POTENTIAL DISCHARGE NEEDS:: Evaluations for further needs, follow up appointments PATIENT/FAMILY EDUCATION NEEDS:: Review discharge instructions regarding activity levels and medications, discussion of self care needs including ask me three. ANTICIPATED BARRIERS TO DISCHARGE:: None identified. TRANSPORTATION:: Via private vehicle by family. PLAN:: Anticipate Mary will return home with no additional services. She will be driven home via private vehicle by her . She will follow up with Ortho and her discharge plan of care. CM will continue to follow.
--- NOTE | 2020-08-04 17:27 | PDOC.CMDIS ---
- If Service Date Differs Date of service: 08/04/20 Time of Service: 17:28 LACE Index Scoring Tool - Questions: Length of Stay (in days): 2 Acuity (Admit via E.D.?): No Comorbidities: Diabetes w/o Complication E.D. Visits: 1 - Answers: Total Score: 4 Risk of Readmission: Low Risk Care Management Discharge Reason for Hospitalization: R Hip DJD Discharge Plan: Mary will return home with no additional services at this time. She will be driven home via private vehicle by her . She will follow up with Ortho and her discharge plan of care. She is happy to be going home. Patient/Family Education Needs: Review discharge instructions regarding activity levels and medications, discussion of self care needs including ask me three.
== END 2020-08-04 13:33 | disposition home or self-care (01) ==
LOC: PDS 13:48 → MS 16:38
PROVIDERS: Admitting Provider Student in an Organized Health Care Education/Training Program; PCP Family Medicine; Visit Provider Student in an Organized Health Care Education/Training Program
PROC: 0SRB04A Replacement of Left Hip Joint with Ceramic on Polyethylene Synthetic Substitute, Uncemented, Open Approach (ICD-10-PCS; CPT 27130; principal; 2020-08-03 10:30)
PROC: 0SRB04A Replacement of Left Hip Joint with Ceramic on Polyethylene Synthetic Substitute, Uncemented, Open Approach (ICD-10-PCS; CPT 27130; 2020-08-03 10:30)
DX: M16.11 Unilateral primary osteoarthritis, right hip (principal); M25.551 Pain in right hip; Z96.641 Presence of right artificial hip joint; I10 Essential (primary) hypertension; E10.9 Type 1 diabetes mellitus without complications; G47.33 Obstructive sleep apnea (adult) (pediatric); G25.81 Restless legs syndrome
CPT/HCPCS: 27130; 20985; C1776; 36415; 85027; 97110; 97162; 97530; NC; 73501; G0378; J0690; J1040; J1200; J1885; J2001; J3010; J9999

== ENCOUNTER 2020-08-18 10:24 | Outpatient (CLI) | payer MEDICARE, BC, SELFPAY ==
--- NOTE | 2020-08-18 09:15 | DI.RAD_ITS ---
EXAM: XR HIP RT COMPLETE AP PELVIS CLINICAL HISTORY: 1st post op R SVETLANA. TECHNIQUE: 2D digital imaging was performed. COMPARISON: Prior x-rays 07/08/2019 FINDINGS: Been placement of a right hip prosthesis. Components appear to be in satisfactory position alignment with no fracture or loosening. No radiographic evidence of osteomyelitis. Incidentally noted is an endovascular stent in the right thigh which is most probably within the righ t SFA artery. Significant degenerative changes are also again noted in the opposite-left hip. IMPRESSION: Satisfactory appearance of the right hip prosthesis. DATA REPOSITORY: RADIATION DOSE DELIVERED:
== END 2020-08-18 10:44 ==
PROVIDERS: PCP Family Medicine; Referring Provider Family Medicine; Visit Provider Student in an Organized Health Care Education/Training Program
DX: Z96.641 Presence of right artificial hip joint (principal); Z47.1 Aftercare following joint replacement surgery; M17.11 Unilateral primary osteoarthritis, right knee
CPT/HCPCS: 73502

== ENCOUNTER 2020-08-22 02:59 | Outpatient (CLI) | payer MEDICARE, BC, SELFPAY ==
[2020-08-22 10:04] LABS: Abs Immature Grans 0.01 10^3/uL (0.0-0.06); Absolute Basophil Count 0.03 10^3/uL (0.0-0.2); Absolute Eosinophil Count 0.05 10^3/uL (0.0-0.7); Absolute Lymphocyte Count 1.03 10^3/uL (1.2-3.4); Absolute Neutrophil Count 2.26 10^3/uL (1.2-6.7); Basophils % 0.8; Eosinophils % 1.4; HCT 32.7 % (36.0-46.0); HGB 10.8 g/dL (11.2-15.7); Immature Grans % 0.3; MCH 35.8 pg (27.0-33.0); MCV 108.3 fL (80-95); MPV 9.5 fL (8.0-11.0); Monocytes % 8.2; Neutrophils % 61.3; Nucleated RBC 0 %; Platelet Count 312 10^3/uL (130-400); RBC 3.02 10^6/uL (3.93-5.22); RDW 21.2 % (11.7-14.6); RDW-SD 84.6 fL; WBC 3.68 10^3/uL (4.4-10.8)
[2020-08-22 10:34] LABS: ALT 20 U/L (14-59); AST 13 U/L (15-37); Albumin 3.8 g/dL (3.4-5.0); Alkaline Phosphatase 77 U/L (46-116); BUN 35 mg/dL (7-18); Bilirubin, Total 0.4 mg/dL (0.2-1.0); CREATININE 1.02 mg/dL (0.55-1.02); Calcium 9.3 mg/dL (8.5-10.1); Chloride 104 mmol/L (98-107); Estimated GFR 53.73 (mL/min/1.73m2); Glucose 124 mg/dL (74-106); Potassium 4.5 mmol/L (3.5-5.1); Sodium 139 mmol/L (136-145); Total Protein 7.7 g/dL (6.4-8.2)
[2020-08-22 10:46] LABS: Anisocytosis 3+; Diff Comment RBC Morph Reviewed; Macrocytosis 2+
[2020-08-22 10:47] LABS: Poikilocytes 1+
== END 2020-08-22 03:19 ==
PROVIDERS: PCP Family Medicine; Visit Provider Internal Medicine
DX: D47.3 Essential (hemorrhagic) thrombocythemia (principal); D47.1 Chronic myeloproliferative disease; D72.829 Elevated white blood cell count, unspecified
CPT/HCPCS: 36415; 80053; 85025

== ENCOUNTER 2020-08-24 01:42 | Outpatient (CLI) | payer MEDICARE, BC, SELFPAY ==
--- NOTE | 2020-08-02 11:38 | PDOC.ANES ---
Anesthesia Note Anesthesia Preoperative Note Spoke with Ms. Rojo 08/01/2020 by telephone. When asked to describe the Atypical Chest Pain described in the Orthopedic H&P and Dr. Graham's most recent note of 07/26/2020, the pt stated that she felt they were more like palpitations. She stated that the sensation was actually not any kind of pain or pressure at all, but rather a thumping feeling, like I can feel my heart beating. She denies any nausea, dizziness, syncope, or shortness of breath during these episodes that last only a few seconds. She has not had any episodes in over two months. She further denies any pain or pressure in her neck, jaw, shoulder or arm.Ms. Rojo states that she remembers the pain she had when her RCA stent was placed and confirms that this is nothing like that. Pt has been cleared by Dr. Graham and Dr. Gabriel Pruett Hematology/Oncolology [facility].
--- NOTE | 2020-08-02 11:59 | ANES_ITS ---
Anesthesia Note Telephone Consult
--- NOTE | 2020-08-02 11:59 | PDOC.ANES ---
Anesthesia Note Telephone Consult
[2020-08-03 08:23] LABS: HCT 37.4 % (36.0-46.0); HGB 12.5 g/dL (11.2-15.7); MCH 33.2 pg (27.0-33.0); MCHC 33.4 % (32.0-36.0); MCV 99.5 fL (80-95); MPV 9.5 fL (8.0-11.0); Platelet Count 268 10^3/uL (130-400); RBC 3.76 10^6/uL (3.93-5.22); RDW 19.3 % (11.7-14.6); RDW-SD 69.7 fL; WBC 4.39 10^3/uL (4.4-10.8)
--- NOTE | 2020-08-24 13:25 | DI.MAMMO_ITS ---
EXAM: MG MAMMO SCREENING CLINICAL HISTORY: screening,Z12.39. TECHNIQUE: Bilateral full field digital CC and MLO mammographic images were obtained with 3D tomosyn thesis and utilizing computer aided detection (CAD). COMPARISON: Prior mammograms dating back to 2011, the most recent being June 2018. FINDINGS: There are no new dominant masses nor malignant appearing microcalcification groups. There is no new architectural distortion nor skin thickening-retraction. IMPRESSION: No radiographic evidence of malignancy. BI-RADS Category 1 - Negative Breast Density - Category B - Scattered areas of fibroglandular density Breast density Category C or D implies that the patient has dense breast tissue. Dense breast tissue can make it harder to find cancer on a mammogram. Dense breast tissue is also associated with an incr eased risk of breast cancer. This information about the result of the mammogram report was provided to the patient to raise their awareness. Use this report when you speak with the patient about their risks for breast cancer, which includes their family history. At that time, you may recommend additional screening tests (Ultrasoun d or MRI) as these tests may add significant information. A negative radiographic report should not delay biopsy if a dominant or clinically suspicious mass is present. Up to ten percent of cancers are not identified on mammography. A negative report may reinforce clinical impression. Adenosis and dense breasts may obscure an underlying neoplasm. False positive reports average 6 to 10%. Patient will receive a letter notifying them of these results.
== END 2020-08-24 02:02 ==
PROVIDERS: Nurse Anesthetist, Certified Registered; PCP Family Medicine; Visit Provider Family Medicine
DX: Z12.31 Encounter for screening mammogram for malignant neoplasm of breast (principal)
CPT/HCPCS: 77063; 77067

== ENCOUNTER → 2020-09-15 10:05 | Outpatient (BNVA) | payer MEDICARE, BC, SELFPAY | PROVIDERS: PCP Family Medicine; Visit Provider Student in an Organized Health Care Education/Training Program | DX: Z47.1 Aftercare following joint replacement surgery (principal); Z96.641 Presence of right artificial hip joint; M17.11 Unilateral primary osteoarthritis, right knee | CPT/HCPCS: 20610; J7325 ==

== ENCOUNTER 2020-09-26 02:32 | Outpatient (CLI) | payer MEDICARE, BC, SELFPAY ==
[2020-09-26 10:22] LABS: Iron 131 ug/dL (50-170)
[2020-09-26 10:35] LABS: Ferritin 124 ng/mL (8-252)
== END 2020-09-26 02:52 ==
PROVIDERS: PCP Family Medicine; Visit Provider Internal Medicine
DX: D64.9 Anemia, unspecified (principal)
CPT/HCPCS: 36415; 82728; 83540

== ENCOUNTER 2020-09-27 02:26 | Outpatient (CLI) | payer MEDICARE, BC, SELFPAY ==
[2020-09-27 09:29] LABS: Abs Immature Grans 0.03 10^3/uL (0.0-0.06); Absolute Basophil Count 0.03 10^3/uL (0.0-0.2); Absolute Eosinophil Count 0.02 10^3/uL (0.0-0.7); Absolute Lymphocyte Count 1.38 10^3/uL (1.2-3.4); Absolute Monocyte Count 0.64 10^3/uL (0.1-0.8); Absolute Neutrophil Count 2.87 10^3/uL (1.2-6.7); Basophils % 0.6; Eosinophils % 0.4; HCT 34.8 % (36.0-46.0); HGB 11.5 g/dL (11.2-15.7); Immature Grans % 0.6; Lymphocytes % 27.8; MCH 38.1 pg (27.0-33.0); MCV 115.2 fL (80-95); MPV 9.4 fL (8.0-11.0); Monocytes % 12.9; Neutrophils % 57.7; Nucleated RBC 0 %; RBC 3.02 10^6/uL (3.93-5.22); RDW 14.6 % (11.7-14.6); RDW-SD 62.1 fL; WBC 4.97 10^3/uL (4.4-10.8)
[2020-09-27 09:44] LABS: Diff Comment Diff Reviewed; Macrocytosis 2+; Platelet Count 298 10^3/uL (130-400); Polychromasia Present
[2020-09-27 10:19] LABS: ALT 27 U/L (14-59); AST 13 U/L (15-37); Albumin 4.3 g/dL (3.4-5.0); Alkaline Phosphatase 63 U/L (46-116); Anion Gap 9.4 mmol/L (3-11); BUN 30 mg/dL (7-18); Bilirubin, Total 0.5 mg/dL (0.2-1.0); CO2 27.6 mmol/L (21.0-32.0); CREATININE 1.27 mg/dL (0.55-1.02); Calcium 9.3 mg/dL (8.5-10.1); Chloride 99 mmol/L (98-107); Estimated GFR 41.72 (mL/min/1.73m2); Glucose 216 mg/dL (74-106); Potassium 4.8 mmol/L (3.5-5.1); Sodium 136 mmol/L (136-145); Total Protein 7.6 g/dL (6.4-8.2)
== END 2020-09-27 02:46 ==
PROVIDERS: PCP Family Medicine; Visit Provider Internal Medicine
DX: D47.1 Chronic myeloproliferative disease (principal); D47.3 Essential (hemorrhagic) thrombocythemia; D72.829 Elevated white blood cell count, unspecified
CPT/HCPCS: 80053; 85025

== ENCOUNTER → 2020-10-27 08:51 | Outpatient (BNVA) | payer MEDICARE, BC, SELFPAY | PROVIDERS: PCP Family Medicine; Referring Provider Family Medicine; Visit Provider Student in an Organized Health Care Education/Training Program | DX: Z47.1 Aftercare following joint replacement surgery (principal); Z96.641 Presence of right artificial hip joint; I73.9 Peripheral vascular disease, unspecified ==

== ENCOUNTER 2020-12-01 02:46 | Outpatient (CLI) | payer MEDICARE, BC, SELFPAY ==
[2020-12-01 12:20] LABS: Abs Immature Grans 0.03 10^3/uL (0.0-0.06); Absolute Basophil Count 0.03 10^3/uL (0.0-0.2); Absolute Eosinophil Count 0.03 10^3/uL (0.0-0.7); Absolute Lymphocyte Count 1.33 10^3/uL (1.2-3.4); Absolute Monocyte Count 0.48 10^3/uL (0.1-0.8); Absolute Neutrophil Count 3.32 10^3/uL (1.2-6.7); Basophils % 0.6; Eosinophils % 0.6; HCT 37.1 % (36.0-46.0); HGB 12.1 g/dL (11.2-15.7); Immature Grans % 0.6; Lymphocytes % 25.5; MCH 36.9 pg (27.0-33.0); MCHC 32.6 % (32.0-36.0); MCV 113.1 fL (80-95); MPV 9.5 fL (8.0-11.0); Monocytes % 9.2; Neutrophils % 63.5; Nucleated RBC 0 %; Platelet Count 321 10^3/uL (130-400); RBC 3.28 10^6/uL (3.93-5.22); RDW 11.7 % (11.7-14.6); RDW-SD 48.6 fL; WBC 5.22 10^3/uL (4.4-10.8)
[2020-12-01 12:29] LABS: Diff Comment RBC Morph Reviewed
[2020-12-01 12:31] LABS: ALT 24 U/L (14-59); AST 9 U/L (15-37); Albumin 3.9 g/dL (3.4-5.0); Alkaline Phosphatase 67 U/L (46-116); Anion Gap 7.5 mmol/L (3-11); BUN 27 mg/dL (7-18); Bilirubin, Total 0.4 mg/dL (0.2-1.0); CO2 28.5 mmol/L (21.0-32.0); Calcium 9.3 mg/dL (8.5-10.1); Chloride 104 mmol/L (98-107); Estimated GFR 54.97 (mL/min/1.73m2); Glucose 196 mg/dL (74-106); Macrocytosis 2+; Potassium 4.5 mmol/L (3.5-5.1); Sodium 140 mmol/L (136-145); Total Protein 7.9 g/dL (6.4-8.2)
== END 2020-12-01 02:47 | disposition home or self-care (01) ==
LOC: LBO 02:46
PROVIDERS: PCP Family Medicine; Visit Provider Internal Medicine
DX: D47.3 Essential (hemorrhagic) thrombocythemia (principal); D72.829 Elevated white blood cell count, unspecified; D47.1 Chronic myeloproliferative disease
CPT/HCPCS: 36415; 80053; 85025

== ENCOUNTER → 2021-03-23 11:32 | Outpatient (BNVA) | payer MEDICARE, BC, SELFPAY | PROVIDERS: PCP Family Medicine; Referring Provider Family Medicine; Visit Provider Student in an Organized Health Care Education/Training Program | DX: M17.11 Unilateral primary osteoarthritis, right knee (principal) | CPT/HCPCS: 20610; J7325 ==

== ENCOUNTER 2021-03-28 08:45 | Outpatient (CLI) | payer MEDICARE, BC, SELFPAY ==
[2021-03-28 12:28] LABS: Abs Immature Grans 0.03 10^3/uL (0.0-0.06); Absolute Basophil Count 0.03 10^3/uL (0.0-0.2); Absolute Eosinophil Count 0.03 10^3/uL (0.0-0.7); Absolute Monocyte Count 0.46 10^3/uL (0.1-0.8); Basophils % 0.7; Eosinophils % 0.7; HCT 34.9 % (36.0-46.0); HGB 11.4 g/dL (11.2-15.7); Immature Grans % 0.7; Lymphocytes % 26.3; MCH 36.8 pg (27.0-33.0); MCHC 32.7 % (32.0-36.0); MCV 112.6 fL (80-95); MPV 10.3 fL (8.0-11.0); Monocytes % 10.1; Nucleated RBC 0 %; Platelet Count 269 10^3/uL (130-400); RDW 13.1 % (11.7-14.6); RDW-SD 54.1 fL; WBC 4.56 10^3/uL (4.4-10.8)
[2021-03-28 12:40] LABS: ALT 21 U/L (14-59); AST 13 U/L (15-37); Albumin 3.8 g/dL (3.4-5.0); Alkaline Phosphatase 54 U/L (46-116); Anion Gap 7.6 mmol/L (3-11); BUN 37 mg/dL (7-18); Bilirubin, Total 0.7 mg/dL (0.2-1.0); CO2 28.4 mmol/L (21.0-32.0); CREATININE 1.1 mg/dL (0.55-1.02); Calcium 9.2 mg/dL (8.5-10.1); Chloride 106 mmol/L (98-107); Glucose 82 mg/dL (74-106); Potassium 4.6 mmol/L (3.5-5.1); Sodium 142 mmol/L (136-145)
[2021-03-28 12:50] LABS: Neutrophils % 61.5
[2021-03-28 12:51] LABS: Diff Comment Diff Reviewed; Macrocytosis 3+
[2021-03-28 13:01] LABS: D-Dimer 572 ng/mlFEU (<500)
== END 2021-03-28 08:46 | disposition home or self-care (01) ==
PROVIDERS: PCP Family Medicine; Visit Provider Internal Medicine
DX: D47.3 Essential (hemorrhagic) thrombocythemia (principal); D47.1 Chronic myeloproliferative disease; D72.829 Elevated white blood cell count, unspecified
CPT/HCPCS: 36415; 80053; 85025; 85379

== ENCOUNTER 2021-04-05 14:43 | Outpatient (CLI) | payer MEDICARE, BC, SELFPAY ==
--- NOTE | 2021-04-05 09:00 | DI.US_ITS ---
Exam(s) US LOWER EXTREMITY VENOUS RT EXAM: US LOWER EXTREMITY VENOUS RT CLINICAL HISTORY: pain/swelling/pos D-dimer, M79.604 TECHNIQUE: Grayscale, color, and doppler imaging of the deep venous system of the right lower extrem ity was performed. COMPARISON: No exams were available for comparison FINDINGS: There is no evidence of intraluminal thrombus and there is normal compression and augmentation demons trated within the common femoral vein, femoral vein, and popliteal vein. In the ipsilateral calf the interrogated veins also exhibit normal compression/ augmentation properti es. The ipsilateral saphenofemoral junction is patent. IMPRESSION: 1. No evidence of DVT in the right lower extremity. 2. No abnormal fluid collection seen DATA REPOSITORY:
== END 2021-04-05 15:03 ==
PROVIDERS: PCP Family Medicine; Visit Provider Family Medicine
DX: M79.604 Pain in right leg (principal); R22.41 Localized swelling, mass and lump, right lower limb
CPT/HCPCS: 93971

== ENCOUNTER 2021-05-11 03:34 | Outpatient (CLI) | payer MEDICARE, BC, SELFPAY ==
[2021-05-11 12:42] LABS: Abs Immature Grans 0.01 10^3/uL (0.0-0.06); Absolute Basophil Count 0.04 10^3/uL (0.0-0.2); Absolute Eosinophil Count 0.03 10^3/uL (0.0-0.7); Absolute Lymphocyte Count 1.45 10^3/uL (1.2-3.4); Absolute Monocyte Count 0.48 10^3/uL (0.1-0.8); Absolute Neutrophil Count 3.26 10^3/uL (1.2-6.7); Basophils % 0.8; Eosinophils % 0.6; HCT 32.7 % (36.0-46.0); HGB 10.9 g/dL (11.2-15.7); Immature Grans % 0.2; Lymphocytes % 27.5; MCH 37.8 pg (27.0-33.0); MCHC 33.3 % (32.0-36.0); MCV 113.5 fL (80-95); MPV 9.6 fL (8.0-11.0); Monocytes % 9.1; Neutrophils % 61.8; Nucleated RBC 0 %; Platelet Count 292 10^3/uL (130-400); RBC 2.88 10^6/uL (3.93-5.22); RDW 13.5 % (11.7-14.6); RDW-SD 56.3 fL; WBC 5.27 10^3/uL (4.4-10.8)
[2021-05-11 13:33] LABS: ALT 20 U/L (14-59); AST 13 U/L (15-37); Albumin 3.8 g/dL (3.4-5.0); Alkaline Phosphatase 51 U/L (46-116); Anion Gap 9.2 mmol/L (3-11); BUN 34 mg/dL (7-18); Bilirubin, Total 0.4 mg/dL (0.2-1.0); CO2 26.8 mmol/L (21.0-32.0); CREATININE 1.2 mg/dL (0.55-1.02); Calcium 8.5 mg/dL (8.5-10.1); Chloride 105 mmol/L (98-107); Estimated GFR 44.41 (mL/min/1.73m2); Glucose 123 mg/dL (74-106); Potassium 4.6 mmol/L (3.5-5.1); Sodium 141 mmol/L (136-145); Total Protein 6.8 g/dL (6.4-8.2)
== END 2021-05-11 03:35 | disposition home or self-care (01) ==
LOC: LOS 03:34
PROVIDERS: PCP Family Medicine; Visit Provider Internal Medicine
DX: D72.829 Elevated white blood cell count, unspecified (principal); D47.3 Essential (hemorrhagic) thrombocythemia
CPT/HCPCS: 36415; 80053; 85025

== ENCOUNTER 2021-06-13 21:44 | Emergency (ER) | payer OTHER, MEDICARE, BC, SELFPAY ==
--- NOTE | 2021-06-13 21:45 | DI.CT_ITS ---
Exam(s) CT HEAD CERVICAL SPINE WO EXAM: CT HEAD CERVICAL SPINE WO CLINICAL HISTORY: fall, hit head, r/o bleed. TECHNIQUE: Imaging Protocol: Axial computed tomography images with coronal and sagittal reformatted images were created and reviewed COMPARISON: No exams were available for comparison FINDINGS: BRAIN: There are no skull fractures nor fluid in the visualized paranasal sinuses. There is no evidence of intracranial hemorrhage, mass effect, or shift of midline structures. There are no extra-axial fluid collections. The ventricles are not enlarged or shifted and there is no blo od within the ventricular system nor within the basal cisterns. CERVICAL SPINE: There is no evidence of fracture nor listhesis. No significant prevertebral soft tissue swelling. There is multilevel chronic disc space narrowing at C3-4, C5-6 and C6-7 levels. There is fusion acro ss the facet joints of C 4-5 level on the left side. Right facet joints at this level are not fused. There is no significant facet joint malalignment. No significant osseous lesions evident. IMPRESSION: No acute intracranial findings on this noninfused CT scan of the brain. No evidence of cervical spine fracture, malalignment, nor acute compromise of the cervical spinal can al. Chronic degenerative changes chronic multilevel degenerative disc disease RADIATION DOSE DELIVERED: 1,396.47mGy.cm Total DLP DATA REPOSITORY: All CT scans at this facility are submitted to the National Radiology Data Registry (NRDR) Dose Index Registry (DIR) with the [employer] (ACR). RADIATION OPTIMIZATION: All CT scans at this facility use at least one of these dose optimization te chniques: automated exposure control; mA and/or kV adjustment per patient size (includes targeted exa ms where dose is matched to clinical indication); or iterative reconstruction.
--- NOTE | 2021-06-13 21:45 | DI.RAD_ITS ---
Exam(s) XR SACRUM COCCYX EXAM: XR SACRUM COCCYX CLINICAL HISTORY: fall, pain in coccyx. TECHNIQUE: 2D digital imaging was performed. COMPARISON: No exams were available for comparison FINDINGS: No evidence of acute sacral fracture. SI joints appear unremarkable. Chronic degenerative disc dise ase noted at L 4-5 level. IMPRESSION: No evidence of fracture of the sacrum and coccyx. DATA REPOSITORY: RADIATION DOSE DELIVERED:
--- NOTE | 2021-06-13 21:45 | DI.RAD_ITS ---
Exam(s) XR HIP PELVIS ADULT BL EXAM: XR HIP PELVIS ADULT BL CLINICAL HISTORY: Fall, coccyx pain. TECHNIQUE: 2D digital imaging was performed. COMPARISON: CR XR HIP RT COMPLETE AP PELVIS from 08/18/2020 FINDINGS: No evidence of pelvic nor hip fracture. Right hip prosthesis components appear intact. No fracture or loosening. No left hip fracture. Chronic degenerative changes in the left hip are unchanged from August 2020. A stent is noted in the right SFA artery upper thigh level. Sacroiliac joints appear unremarkable. Multilevel chronic degenerative disc disease in the visualize d lower lumbar spine. IMPRESSION: No acute fractures. DATA REPOSITORY: RADIATION DOSE DELIVERED:
[2021-06-13 21:50] VITALS: BP 118/66; PULSE 58; RESP 16; TEMP 36.1; O2SAT 96
[2021-06-13] MEDS: Lidocaine 5% Patch 1 PATCH TP (22:07)
[2021-06-13] MEDS: Acetaminophen 500 MG TAB 1000 MG PO (22:07)
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
--- NOTE | 2021-06-13 22:52 | DI.VRAD_ITS ---
PROCEDURE INFORMATION: Exam: CT Head Without Contrast Exam date and time: 06/13/2021 10:00 PM Age: 70 years old Clinical indication: Injury or trauma; Fall; Swelling (edema); Sprain or strain, cervical ligaments TECHNIQUE: Imaging protocol: Computed tomography of the head without contrast. COMPARISON: MRI - BRAIN WO CONTRAST 03/28/2015 4:56 PM FINDINGS: Brain: No acute intracranial hemorrhage, edema, midline shift, or mass effect. Mild cerebral volume loss is within normal limits for the patient's age. Cerebral ventricles: No ventriculomegaly. Paranasal sinuses: Visualized sinuses are unremarkable. No fluid levels. Mastoid air cells: Visualized mastoid air cells are well aerated. Vasculature: Dense arteriosclerotic calcifications of the intracranial internal carotid arteries. Bones/joints: Hyperostosis frontalis interna. Soft tissues: Unremarkable. IMPRESSION: No acute intracranial abnormality is appreciated. PROCEDURE INFORMATION: Exam: CT Cervical Spine Without Contrast Exam date and time: 06/13/2021 10:00 PM Age: 70 years old Clinical indication: Injury or trauma; Fall; Swelling (edema); Sprain or strain, cervical ligaments TECHNIQUE: Imaging protocol: Computed tomography images of the cervical spine without contrast. COMPARISON: No relevant prior studies available. FINDINGS: Bones/joints: No evidence of acute cervical spine fracture or subluxation. Discs/Spinal canal/Neural foramina: Diffuse degenerative changes of the cervical spine, with ankylosis of the left C4-C5 facet joints. Multilevel disc, endplate osteophyte, and uncovertebral joint disease without significant spinal canal stenosis appreciated. Multilevel moderate to severe neural foraminal narrowing is greater on the right than the left. Lungs: Lung apices are normal. Vasculature: Atherosclerosis at the aortic arch and carotid bifurcations. Soft tissues: Unremarkable. IMPRESSION: Diffuse degenerative changes of the cervical spine, without demonstration of acute fracture or subluxation. Dictated and Authenticated by: Eder Armijo MD. Ordering:CHARISMA Decker MD
--- NOTE | 2021-06-13 23:02 | DI.VRAD_ITS ---
PROCEDURE INFORMATION: Exam: XR Sacrum and Coccyx, 2 or More Views Exam date and time: 06/13/2021 10:00 PM Age: 70 years old Clinical indication: Injury or trauma; Fall; Sprain or strain of sacroiliac joint TECHNIQUE: Imaging protocol: XR of the sacrum and coccyx, 2 or more views. COMPARISON: CR XR HIP RT COMPLETE AP PELVIS 08/18/2020 9:38:34 AM FINDINGS: Bones/joints: Status post right hip replacement surgery, incompletely evaluated. Moderate to severe degenerative changes of the left hip. Degenerative changes of the lumbar spine are incompletely evaluated. No evidence of acute fracture of the sacrum or coccyx. Soft tissues: Normal. IMPRESSION: No evidence of sacrococcygeal fracture. Dictated and Authenticated by: Eder Armijo MD. Ordering:CHARISMA Decker MD
--- NOTE | 2021-06-13 23:03 | DI.VRAD_ITS ---
PROCEDURE INFORMATION: Exam: XR Right Hip Exam date and time: 06/13/2021 10:00 PM Age: 70 years old Clinical indication: Injury or trauma; Fall; Sprain or strain; Bilateral; Pelvic region TECHNIQUE: Imaging protocol: XR Right hip. Views: 2 or 3 views hip with pelvis when performed. COMPARISON: CR XR HIP RT COMPLETE AP PELVIS 08/18/2020 9:38 AM FINDINGS: Bones/joints: Status post right hip replacement. Grossly stable appearance of the right hip prosthesis. No evidence of osseous lucency or fracture adjacent to the right hip prosthesis. Essentially stable severe degenerative changes of the left hip. Soft tissues: Unremarkable. Intraperitoneal space: Vascular stent of the right lower leg is incompletely evaluated but appears grossly stable. IMPRESSION: 1. No evidence of acute fracture or subluxation of the hips. 2. Stable appearance of right hip replacement. 3. Stable degenerative changes of the left hip. Dictated and Authenticated by: Eder Armijo MD. Ordering:CHARISMA Decker MD
[2021-06-13 23:24] VITALS: BP 134/57; PULSE 56; RESP 16; O2SAT 96
== END 2021-06-13 23:48 | disposition home or self-care (01) ==
PROVIDERS: Emergency Provider Student in an Organized Health Care Education/Training Program; PCP Family Medicine
DX: M53.3 Sacrococcygeal disorders, not elsewhere classified (principal); R51.9 Headache, unspecified; W03.XXXA Other fall on same level due to collision with another person, initial encounter; Y99.0 Civilian activity done for income or pay
CPT/HCPCS: 73521; 99284; 70450; 72125; 72220; 99283

== ENCOUNTER 2021-07-06 02:40 | Outpatient (CLI) | payer MEDICARE, BC, SELFPAY ==
[2021-07-06 13:08] LABS: HCT 35.3 % (36.0-46.0); HGB 11.7 g/dL (11.2-15.7); MCH 37.6 pg (27.0-33.0); MCHC 33.1 % (32.0-36.0); MCV 113.5 fL (80-95); MPV 9.6 fL (8.0-11.0); Platelet Count 307 10^3/uL (130-400); RBC 3.11 10^6/uL (3.93-5.22); RDW 13.1 % (11.7-14.6); RDW-SD 53.9 fL; WBC 5.95 10^3/uL (4.4-10.8)
== END 2021-07-06 02:41 | disposition home or self-care (01) ==
LOC: LBO 02:40
PROVIDERS: PCP Family Medicine; Visit Provider Family Medicine
DX: R53.83 Other fatigue (principal)
CPT/HCPCS: 36415; 85027

== ENCOUNTER 2021-08-03 09:13 | Outpatient (CLI) | payer MEDICARE, BC, SELFPAY ==
--- NOTE | 2021-08-03 09:00 | DI.RAD_ITS ---
Exam(s) XR HIP RT AP LAT ONLY EXAM: XR HIP RT AP LAT ONLY CLINICAL HISTORY: ANNUAL F/U R SVETLANA. TECHNIQUE: 2D digital imaging was performed. COMPARISON: CR XR HIP RT COMPLETE AP PELVIS from 08/18/2020 FINDINGS: There is continued stable appearance of the right hip prosthesis. No fracture or loosening evident. Stent in right SFA artery ipsilateral lower extremity is again noted. IMPRESSION: DATA REPOSITORY: RADIATION DOSE DELIVERED:
== END 2021-08-03 09:14 | disposition home or self-care (01) ==
LOC: DIORS 09:13
PROVIDERS: PCP Family Medicine; Referring Provider Family Medicine; Visit Provider Student in an Organized Health Care Education/Training Program
DX: Z47.1 Aftercare following joint replacement surgery (principal); Z96.641 Presence of right artificial hip joint
CPT/HCPCS: 99212; 73502

== ENCOUNTER 2021-08-30 01:39 | Outpatient (CLI) | payer MEDICARE, BC, SELFPAY ==
[2021-08-30 13:22] LABS: Abs Immature Grans 0.01 10^3/uL (0.0-0.06); Absolute Basophil Count 0.03 10^3/uL (0.0-0.2); Absolute Eosinophil Count 0.02 10^3/uL (0.0-0.7); Absolute Lymphocyte Count 1.29 10^3/uL (1.2-3.4); Absolute Monocyte Count 0.48 10^3/uL (0.1-0.8); Basophils % 0.5; Eosinophils % 0.4; HCT 36.5 % (36.0-46.0); HGB 11.9 g/dL (11.2-15.7); Immature Grans % 0.2; Lymphocytes % 22.9; MCH 36.4 pg (27.0-33.0); MCHC 32.6 % (32.0-36.0); MCV 111.6 fL (80-95); MPV 9.7 fL (8.0-11.0); Monocytes % 8.5; Neutrophils % 67.5; Nucleated RBC 0 %; Platelet Count 310 10^3/uL (130-400); RBC 3.27 10^6/uL (3.93-5.22); RDW 12.7 % (11.7-14.6); RDW-SD 52.3 fL; WBC 5.63 10^3/uL (4.4-10.8)
[2021-08-30 13:32] LABS: Macrocytosis 1+
[2021-08-30 13:54] LABS: ALT 22 U/L (14-59); AST 13 U/L (15-37); Albumin 4.4 g/dL (3.4-5.0); Alkaline Phosphatase 65 U/L (46-116); Anion Gap 9.8 mmol/L (3-11); BUN 39 mg/dL (7-18); Bilirubin, Total 0.6 mg/dL (0.2-1.0); CO2 26.2 mmol/L (21.0-32.0); CREATININE 1.2 mg/dL (0.55-1.02); Calcium 9.8 mg/dL (8.5-10.1); Chloride 104 mmol/L (98-107); Estimated GFR 44.41 (mL/min/1.73m2); Glucose 103 mg/dL (74-106); Potassium 4.2 mmol/L (3.5-5.1); Sodium 140 mmol/L (136-145); Total Protein 8.2 g/dL (6.4-8.2)
== END 2021-08-30 01:40 | disposition home or self-care (01) ==
PROVIDERS: PCP Family Medicine; Visit Provider Nurse Practitioner Adult Health
DX: D47.1 Chronic myeloproliferative disease (principal)
CPT/HCPCS: 36415; 80053; 85025

== ENCOUNTER → 2021-09-26 13:25 | Outpatient (BNVA) | payer MEDICARE, BC, SELFPAY | PROVIDERS: PCP Family Medicine; Referring Provider Family Medicine | DX: M17.11 Unilateral primary osteoarthritis, right knee (principal) | CPT/HCPCS: 20610; J7325 ==

== ENCOUNTER 2021-10-11 01:39 | Outpatient (CLI) | payer MEDICARE, BC, SELFPAY ==
[2021-10-11 10:27] LABS: Abs Immature Grans 0.03 10^3/uL (0.0-0.06); Absolute Basophil Count 0.03 10^3/uL (0.0-0.2); Absolute Eosinophil Count 0.02 10^3/uL (0.0-0.7); Absolute Lymphocyte Count 1.12 10^3/uL (1.2-3.4); Absolute Monocyte Count 0.58 10^3/uL (0.1-0.8); Absolute Neutrophil Count 3.46 10^3/uL (1.2-6.7); Basophils % 0.6; Eosinophils % 0.4; HCT 34.8 % (36.0-46.0); HGB 11.1 g/dL (11.2-15.7); Immature Grans % 0.6; Lymphocytes % 21.4; MCH 36.5 pg (27.0-33.0); MCHC 31.9 % (32.0-36.0); MCV 114.5 fL (80-95); MPV 9.5 fL (8.0-11.0); Monocytes % 11.1; Neutrophils % 65.9; Nucleated RBC 0 %; Platelet Count 243 10^3/uL (130-400); RBC 3.04 10^6/uL (3.93-5.22); RDW 13.4 % (11.7-14.6); RDW-SD 56.7 fL; WBC 5.24 10^3/uL (4.4-10.8)
[2021-10-11 12:01] LABS: ALT 21 U/L (14-59); AST 11 U/L (15-37); Albumin 3.9 g/dL (3.4-5.0); Alkaline Phosphatase 65 U/L (46-116); Anion Gap 8.8 mmol/L (3-11); BUN 40 mg/dL (7-18); Bilirubin, Total 0.3 mg/dL (0.2-1.0); CO2 29.2 mmol/L (21.0-32.0); CREATININE 1.1 mg/dL (0.55-1.02); Calcium 9.8 mg/dL (8.5-10.1); Chloride 102 mmol/L (98-107); Glucose 128 mg/dL (74-106); Sodium 140 mmol/L (136-145); TSH (W/Ref FT4) 4.72 uIU/mL (0.36-3.74); Total Protein 7.1 g/dL (6.4-8.2)
[2021-10-11 12:19] LABS: FREE T4 0.87 ng/dL (0.76-1.46)
== END 2021-10-11 01:40 | disposition home or self-care (01) ==
LOC: LBO 01:39
PROVIDERS: PCP Family Medicine; Visit Provider Nurse Practitioner Adult Health
DX: D47.1 Chronic myeloproliferative disease (principal); E03.9 Hypothyroidism, unspecified
CPT/HCPCS: 36415; 80053; 84439; 84443; 85025

== ENCOUNTER 2021-11-16 11:52 | Outpatient (CLI) | payer MEDICARE, BC, SELFPAY ==
--- NOTE | 2021-11-16 11:45 | DI.RAD_ITS ---
Exam(s) XR SHOULDER RT COMPLETE 2+V EXAM: XR SHOULDER RT COMPLETE 2+V CLINICAL HISTORY: shoulder pain. TECHNIQUE: 2D digital imaging was performed. COMPARISON: No exams were available for comparison FINDINGS: BONES: No acute fracture is present. No bony destructive lesion is seen. JOINTS: No dislocation present. Prominent spurring AC joint. Spurring tip of the acromion, greater tuberosity and inferior glenohumeral joint. SOFT TISSUE: Normal. IMPRESSION: Degenerative changes, greatest at the acromioclavicular joint. DATA REPOSITORY: RADIATION DOSE DELIVERED:
--- NOTE | 2021-11-16 11:45 | DI.RAD_ITS ---
Exam(s) XR SHOULDER LT COMPLETE 2+V EXAM: XR SHOULDER LT COMPLETE 2+V CLINICAL HISTORY: shoulder pain. TECHNIQUE: 2D digital imaging was performed. Three views. COMPARISON: CR XR SHOULDER RT COMPLETE 2+V from 11/16/2021 FINDINGS: BONES: No acute fracture is present. No bony destructive lesion is seen. Spurring at the greater tub erosity. Mild spurring inferior glenoid. JOINTS: No dislocation present. Spurring AC joint. Mild narrowing glenohumeral joint. SOFT TISSUE: Normal. IMPRESSION: Moderate degenerative changes. DATA REPOSITORY: RADIATION DOSE DELIVERED:
== END 2021-11-16 11:53 | disposition home or self-care (01) ==
LOC: DIORS 11:52
PROVIDERS: PCP Family Medicine; Referring Provider Family Medicine; Visit Provider Student in an Organized Health Care Education/Training Program
DX: M25.511 Pain in right shoulder; M25.512 Pain in left shoulder; M75.81 Other shoulder lesions, right shoulder; M75.82 Other shoulder lesions, left shoulder
CPT/HCPCS: 20610; 73030; J1040

== ENCOUNTER 2021-11-25 08:20 | Emergency (ER) | payer MEDICARE, BC, SELFPAY ==
[2021-11-25 08:23] VITALS: BP 172/59; PULSE 59; RESP 16; TEMP 35.7; O2SAT 100
--- NOTE | 2021-11-25 08:45 | DI.CT_ITS ---
Exam(s) CT PELVIC WO EXAM: CT PELVIC WO CLINICAL HISTORY: left hip and pelvis pain, fall. TECHNIQUE: Imaging Protocol: Axial computed tomography images with coronal and sagittal reformatted images were created and reviewed CONTRAST MATERIAL: Intravenous: none Oral: None COMPARISON: No exams were available for comparison FINDING: PELVIS: OSSEOUS: No pelvic nor hip fractures evident.Right hip prosthesis appears intact. There is degenerat pattie osteoarthritic narrowing of the left hip joint but no evidence of acute left hip fracture.However , there is a corticated loose intra-articular body in the left hip joint, this measuring 8 x 6 millim eters. ANTERIOR ABDOMINAL WALL/GI:No evidence of significant anterior abdominal wall nor inguinal hernia in the pelvis evident.No obvious bowel obstruction. No evidence of appendicitis.No evidence of acute si gmoid diverticulitis.No free fluid in the pelvis. LYMPH NODES: There is no intrapelvic nor inguinal adenopathy. URINARY BLADDER: No calculi nor obvious masses evident REPRODUCTIVE: Small 6 x 7 millimeter calcification in the uterus is probably a fibroid. There are no abnormal adnexal masses.. IMPRESSION: 1. No evidence of pelvic nor hip fracture. Osteoarthritic degenerative changes plus corticated loose intra-articular body in the left hip. 2. Unremarkable right hip prosthesis. 3. No intrapelvic hematoma. Findings as above RADIATION DOSE DELIVERED: 636.34mGy.cm Total DLP DATA REPOSITORY: All CT scans at this facility are submitted to the National Radiology Data Registry (NRDR) Dose Index Registry (DIR) with the [employer] (ACR). RADIATION OPTIMIZATION: All CT scans at this facility use at least one of these dose optimization te chniques: automated exposure control; mA and/or kV adjustment per patient size (includes targeted exa ms where dose is matched to clinical indication); or iterative reconstruction.
[2021-11-25] MEDS: oxyCODONE 5 MG TAB PO (09:15)
[2021-11-25] MEDS: Lidocaine 5% Patch 1 PATCH TP (09:15)
--- NOTE | 2021-11-25 09:59 | DI.VRAD_ITS ---
PROCEDURE INFORMATION: Exam: CT Pelvis Without Contrast Exam date and time: 11/25/2021 8:59 AM Age: 70 years old Clinical indication: Hip pain and pelvic pain; Left hip; Patient HX: Lt hip and pelvic pain S/P fall a few months ago TECHNIQUE: Imaging protocol: Computed tomography images of the pelvis without contrast. Radiation optimization: All CT scans at this facility use at least one of these dose optimization techniques: automated exposure control; mA and/or kV adjustment per patient size (includes targeted exams where dose is matched to clinical indication); or iterative reconstruction. COMPARISON: CR XR HIP PELVIS ADULT BL 06/13/2021 10:34 PM FINDINGS: Stomach and bowel: Partially visualized small and large bowel are unremarkable. Appendix: The appendix appears normal. Intraperitoneal space: No pelvic ascites. No significant pelvic fluid collections. Vasculature: Mild atherosclerotic disease in the arterial system. Lymph nodes: No enlarged pelvic lymph nodes. Urinary bladder: The bladder appears unremarkable. Reproductive: Small calcification measuring up to 7 mm along the anterior margin of the uterus may be consistent with small calcified fibroid. The remainder of the uterus is unremarkable. Bones/joints: Degenerative disc disease at L4-5. Lower lumbar facet arthropathy. Minimal degenerative changes in the right sacroiliac joint. Left hip joint space narrowing with acetabular lipping, femoral osteophyte formation, and subchondral cyst formation consistent with osteoarthritic disease. Well corticated osseous loose body in the left hip joint. Right total hip arthroplasty appears unremarkable. Soft tissues: Unremarkable. IMPRESSION: 1. Osteoarthritic changes in the left hip joint. Well corticated osseous loose body in the left hip joint. 2. No pelvic fracture identified. 3. Right total hip arthroplasty appears unremarkable. Dictated and Authenticated by: Maury Cox MD. Ordering:SALVADOR Caicedo MD
--- NOTE | 2021-11-25 10:20 | ED.GENADUL_ITS ---
Discharge Plan Disposition Patient Disposition: HOME Condition: Stable Discharge Details Clinical Impression: Abrasion, left hip, initial encounter Primary Care Provider: Gui Graham ED Provider: Marifer Ta Calpine Meds and New Rx's Prescriptions: New lidocaine [Lidoderm] 5 % adhesive patch,medicated 1 patch topical DAILY Qty: 15 0RF Rx Instructions: leave on most painful area for up to 12 hrs Continued meloxicam submicronized 5 mg capsule 7.5 mg PO DAILY Qty: 14 0RF cyclobenzaprine 5 mg tablet 5 mg PO TID PRN (Reason: muscle spasm and pain) Qty: 30 0RF magnesium 250 mg tablet 500 mg PO HS 0RF Novolin N NPH U-100 Insulin 100 unit/mL suspension See Rx Instructions SC .COMPLEX Qty: 10 5RF Rx Instructions: 10 units SQ q AM and 30 Units SQ q PM. 10/25/20 aspirin 325 MG tablet 325 mg PO DAILY 0RF (DME) blood-glucose meter [Accu-Chek Guide Glucose Meter] Misc See Rx Instructions .ROUTE .MEDSUPPLY Qty: 1 0RF Rx Instructions: test as directed (DME) Accu-Chek Guide test strips Strip 1 ea Miscellaneous DAILY Qty: 300 3RF Rx Instructions: test 3 x day (DME) insulin syringe-needle U-100 [BD Insulin Syringe Ultra-Fine] 1 mL 31 gauge x 5/16 syringe See Rx Instructions .ROUTE .MEDSUPPLY Qty: 180 3RF Rx Instructions: 1 injection sq BID (DME) lancets Misc 1 ea Miscellaneous DAILY Qty: 300 3RF Rx Instructions: test 3 x /day duloxetine 30 mg capsule,delayed release(DR/EC) 30 mg PO DAILY Qty: 90 3RF losartan 100 mg tablet 100 mg PO DAILY Qty: 90 3RF metoprolol tartrate 25 mg tablet 25 mg PO BID Qty: 180 3RF chlorthalidone 50 mg tablet 100 mg PO DAILY Qty: 180 3RF amlodipine 10 mg tablet 10 mg PO DAILY Qty: 90 3RF Trulicity 1.5 mg/0.5 mL pen injector 1.5 mg subcut QWEEK Qty: 6 4RF metformin 500 mg tablet 500 mg PO BID Qty: 180 3RF atorvastatin 40 mg tablet 40 mg PO DAILY Qty: 90 3RF spironolactone [Aldactone] 25 mg tablet 25 mg PO DAILY Qty: 90 3RF tolterodine 1 mg tablet 1 mg PO BID Qty: 180 3RF ropinirole 8 mg tablet extended release 24 hr 8 mg PO DAILY Qty: 30 2RF acetaminophen 500 mg tablet 500 mg PO Q6H PRN (Reason: pain) Qty: 60 2RF No Action oxycodone 5 mg Tablet 5 mg PO Q4-5H 0RF hydroxyurea 500 mg capsule 500 - 1,000 mg PO BID 0RF Rx Instructions: alternate 500 mg/1000 mg qod per Oncology prednisone 20 mg tablet 40 mg PO DAILY 7 Days Qty: 14 0RF Rx Instructions: Take 2 tabs daily in am oxycodone 5 mg tablet 5 mg PO Q6H PRN (Reason: pain) Qty: 7 0RF Rx Instructions: Take one tablet every 4 to 6 hours with Food, Do not drive or operate heavy machinery while taking this medication. Discharge Instructions Additional Instructions: Use your cane with ambulation Follow-up with orthopedic on Saturday to schedule follow-up follow-up with pcp return earlier with fever, chills, or with any new or worsening complaints Stand Alone Forms: Work Release Referrals: Zurdo Carlson MD [ [facility] STAFF PHYSICIAN] - Gui Graham MD [Primary Care Provider] - Discharge Data Discharge Date/Time-TO BE ENTERED AT DEPARTURE: 11/25/21 10:36 Medical Decision Making Patient appears well, she has antalgic gait There is no evidence of acute intra-abdominal process clinically Did order CT scan of pelvis to exclude fracture given patient's age and comorbidities She is neurovascularly intact bilateral lower extremities There is no evidence of septic arthritis She feels mild symptomatic improvement after single tablet of 5 mg oxycodone She is given 4 tablets for home She does ask me for more opiate at home and I have declined I have referred her back to orthopedics and recommended that she also follow-up with her primary care physician Lidoderm patches were supplied Return precautions discussed and patient EXPRESSED understanding Medical Records Medical records reviewed: Yes I reviewed the patient's medical records. Lab Data Lab results reviewed: Yes I reviewed the patient's lab results. HPI General Date/Time Provider Initiated Documentation: 11/25/21 08:33 . HPI Narrative: This 70-year-old female presents with report of left hip pain for the past 3 weeks but is worsening. She states she has assessed by her primary care physician and started on Flexeril which is not helping her pain. 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 She denies any chest pain or shortness of breath. Her pain is exacerbated with standing and sharp. States it radiates into her knee. She did fall approximately a week ago, slipping on ice and landing on her buttocks. She states she did not have significant pain immediately following the fall and did not attribute her discomfort in her hip to this. She does have a history of right hip replacement pain was different prior to replacement being performed. She also had bilateral shoulder steroid injections approximately a week prior to arrival by Dr. Carlson. Related Data Home Medications Medication Instructions Recorded Confirmed aspirin 325 mg tablet 325 mg PO DAILY tab-cap 11/19/12 11/25/21 magnesium 250 mg tablet 500 mg PO HS tab 04/17/19 11/25/21 blood-glucose meter (Accu-Chek #1 each 03/17/20 11/23/21 Guide Glucose Meter) acetaminophen 500 mg tablet 500 mg PO Q6H PRN #60 tab 08/03/20 11/25/21 blood sugar diagnostic (Accu-Chek #300 strip 12/06/20 11/23/21 Guide test strips) insulin syringe-needle U-100 1 mL #180 ea 12/06/20 11/23/21 31 gauge x 5/16 (BD Insulin Syringe Ultra-Fine) lancets #300 each 12/06/20 11/23/21 duloxetine 30 mg capsule,delayed 30 mg PO DAILY #90 cap 01/19/21 11/25/21 release losartan 100 mg tablet 100 mg PO DAILY #90 tab 01/19/21 11/25/21 insulin NPH isoph U-100 human 100 See Rx Instructions SC .COMPLEX 03/03/21 11/25/21 unit/mL subcutaneous suspension #10 ml (Novolin N NPH U-100 Insulin isophane) metoprolol tartrate 25 mg tablet 25 mg PO BID #180 tab 03/22/21 11/25/21 chlorthalidone 50 mg tablet 100 mg PO DAILY #180 tab 04/17/21 11/25/21 amlodipine 10 mg tablet 10 mg PO DAILY #90 tab 04/25/21 11/25/21 dulaglutide 1.5 mg/0.5 mL 1.5 mg (0.5 mL) SUBCUT QWEEK #6 ml 06/15/21 11/25/21 subcutaneous pen injector (Trulicity) metformin 500 mg tablet 500 mg PO BID #180 tab 08/29/21 11/25/21 atorvastatin 40 mg tablet 40 mg PO DAILY #90 tab-cap 10/12/21 11/25/21 spironolactone 25 mg tablet 25 mg PO DAILY #90 tab 11/02/21 11/25/21 (Aldactone) tolterodine 1 mg tablet 1 mg PO BID #180 tab 11/02/21 11/25/21 ropinirole 8 mg tablet,extended 8 mg PO DAILY #30 tab 11/20/21 11/25/21 release 24 hr cyclobenzaprine 5 mg tablet 5 mg PO TID PRN #30 tab 11/23/21 11/25/21 meloxicam submicronized 5 mg 7.5 mg PO DAILY #14 cap 11/23/21 11/25/21 capsule hydroxyurea 500 mg capsule 500 - 1,000 mg PO BID 11/25/21 11/25/21 lidocaine 5 % topical patch 1 patch TOPICAL DAILY #15 ea 11/25/21 11/25/21 (Lidoderm) oxycodone 5 mg tablet 5 mg PO Q4-5H 11/25/21 11/25/21 oxycodone 5 mg tablet 5 mg PO Q6H PRN #7 tab 11/25/21 prednisone 20 mg tablet 40 mg PO DAILY 7 Days #14 tab 11/25/21 Previous Rx's Medication Instructions Recorded blood-glucose meter (Accu-Chek #1 each 03/17/20 Guide Glucose Meter) acetaminophen 500 mg tablet 500 mg PO Q6H PRN #60 tab 08/03/20 blood sugar diagnostic (Accu-Chek #300 strip 12/06/20 Guide test strips) insulin syringe-needle U-100 1 mL #180 ea 12/06/20 31 gauge x 5/16 (BD Insulin Syringe Ultra-Fine) lancets #300 each 12/06/20 duloxetine 30 mg capsule,delayed 30 mg PO DAILY #90 cap 01/19/21 release losartan 100 mg tablet 100 mg PO DAILY #90 tab 01/19/21 insulin NPH isoph U-100 human 100 See Rx Instructions SC .COMPLEX 03/03/21 unit/mL subcutaneous suspension #10 ml (Novolin N NPH U-100 Insulin isophane) metoprolol tartrate 25 mg tablet 25 mg PO BID #180 tab 03/22/21 chlorthalidone 50 mg tablet 100 mg PO DAILY #180 tab 04/17/21 amlodipine 10 mg tablet 10 mg PO DAILY #90 tab 04/25/21 dulaglutide 1.5 mg/0.5 mL 1.5 mg (0.5 mL) SUBCUT QWEEK #6 ml 06/15/21 subcutaneous pen injector (Trulicity) metformin 500 mg tablet 500 mg PO BID #180 tab 08/29/21 atorvastatin 40 mg tablet 40 mg PO DAILY #90 tab-cap 10/12/21 spironolactone 25 mg tablet 25 mg PO DAILY #90 tab 11/02/21 (Aldactone) tolterodine 1 mg tablet 1 mg PO BID #180 tab 11/02/21 ropinirole 8 mg tablet,extended 8 mg PO DAILY #30 tab 11/20/21 release 24 hr cyclobenzaprine 5 mg tablet 5 mg PO TID PRN #30 tab 11/23/21 meloxicam submicronized 5 mg 7.5 mg PO DAILY #14 cap 11/23/21 capsule lidocaine 5 % topical patch 1 patch TOPICAL DAILY #15 ea 11/25/21 (Lidoderm) oxycodone 5 mg tablet 5 mg PO Q6H PRN #7 tab 11/25/21 prednisone 20 mg tablet 40 mg PO DAILY 7 Days #14 tab 11/25/21 Allergies Allergy/AdvReac Type Severity Reaction Status Date / Time clopidogrel Allergy Skin Rash Verified 11/25/21 19:23 oxybutynin AdvReac Intermediate Verified 11/25/21 19:23 propoxyphene AdvReac Nausea Verified 11/25/21 19:23 General Stated Complaint: Orthopedic KIMI: 4 Review of Systems All systems reviewed & are unremarkable except as noted in HPI and below PFSH All Active Problems (Updated 11/25/21 @ 19:43 by Chely Fernandez) Abrasion, left hip, initial encounter (Acute) Degenerative arthritis of hip (Acute) Tendonitis of both rotator cuffs (Acute) Steroid injection: 11/16/2021 Contusion (Acute) Fall (Acute) Pleuritic chest pain (Acute) Ear canal blister (Acute) Osteoarthritis of right knee (Acute) History of total right hip replacement (Acute 08/03/20) Peripheral vascular disease (Chronic) S/P right SFA antioplasty an sstenting, 2003. Left [place]VA to [place] popliteal bypass with [place], 2003. CAD (coronary artery disease) (Chronic) S/P stent 2004 Hypertension (Chronic) Hyperlipidemia (Chronic) Atherosclerosis of [place] coronary artery (Acute) Stent RCA 2006 B12 deficiency (Acute 04/08/15) Carpal tunnel syndrome (Acute 05/16/09) Cataracts, both eyes (Acute) 11/11/15 OPTICAL EXPRESSIONS; EARLY CATARACTS Diabetes mellitus (Chronic 02/18/13) Essential hypertension (Acute 08/18/13) History of tobacco use (Acute) Hyperlipidemia (Acute 01/14/14) ALEX (obstructive sleep apnea) (Acute 03/11/18) Palpitations (Acute 11/06/17) Peripheral vascular disease (Acute 02/18/13) Bypass Left Stent Right 2005 left BKA 08/28 Polyp of colon (Acute 09/15/09) 09/25 COLONOSCOPY: ONE TUBULAR ADENOMA AND FOUR HYPERPLASTIC POLYPS. 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 Primary osteoarthritis of right knee (Chronic) RLS (restless legs syndrome) (Chronic) Osteoarthritis of right hip (Chronic) Injection under fluoroscopy: 10/01/2019 Hyperkalemia (Acute) Thrombocytosis (Acute) Atypical chest pain (Acute) Hip pain, right (Acute) Medical History Diabetes mellitus, type II diabetes with peripheral vascular disease Hypertension Surgical History Angioplasty L leg 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 Sister Skin cancer Brother No problems noted. Son Alcohol abuse Depression Maternal Grandfather Stomach cancer Paternal Grandfather No problems noted. Maternal Grandmother No problems noted. Paternal Grandmother No problems noted. Daughter Depression Social History Smoking/Tobacco Use Status: Former Tobacco Use Tobacco: How many years used: 37 Smoking risk assessment performed?: Yes Alcohol Intake: current Alcohol Intake frequency: a few times a week Alcohol type: beer Drug use: Never Substance use type: does not use Caregiver/Support person: No Household members: spouse Housing: house Do you need help understanding health information?: Rarely current occupation: [employer] Pets and animals: Yes Pets and animals: cat(s) Sexually active: No Do you think of yourself as: straight/heterosexual Current gender identity: female What is your relationship status?: How often do you talk on the phone with friends or family?: once per week How often do you get together with friends or relatives?: decline to answer How often do you attend nondenominational or nondenominational services?: 1-3 times per year Do you belong to any clubs or organized social groups?: no Panel score (0-1 are the most socially isolated patients): 1 What type of physical activity do you participate in: none Carmelina/Christian: Congregational Special carmelina needs: No Seatbelt use: always Helmet use: Yes Helmet use: always Drive intox 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 driver salesman: No Do you feel safe at home: Yes Do you feel safe in your relationship?: Yes Would you like helpful sources: No Exam Const General: cooperative, comfortable and no acute distress Cardio Rate: regular rate Rhythm: regular rhythm GI Inspection: normal to inspection Other: No abdominal bruit or pulsatile mass, nontender abdominal exam Back/Spine/Pelvis Other: NO LUMBAR SPINE TENDERNESS Skin General skin exam: no rashes or lesions noted Neuro General: patient alert and patient oriented x3 Other: SENSATION INTACT Extrem General: normal to inspection Other: LEFT HIP TENDERNESS, NO CREPITUS, NO RASHES Course Vital Signs Vital signs: Vital Signs Temperature 35.7 C L 11/25/21 08:23 Pulse 59 L 11/25/21 08:23 Respiratory Rate 16 11/25/21 08:23 Blood Pressure 172/59 H 11/25/21 08:23 Pulse Oximetry 100 11/25/21 08:23 Temperature 35.7 C L 11/25/21 08:23 Temperature Source Tympanic 11/25/21 08:23 Pulse 59 L 11/25/21 08:23 Respiratory Rate 16 11/25/21 08:23 Respiratory Effort Non-Labored 11/25/21 08:27 Blood Pressure 172/59 H 11/25/21 08:23 Blood Pressure Position Sitting 11/25/21 08:23 Pulse Oximetry 100 11/25/21 08:23 Oxygen Delivery Method Room Air 11/25/21 08:23 Oxygen Flow Rate 0 11/25/21 08:23 Pain Level 10 11/25/21 09:56 PAWSS Have you Been Recently Intoxicated or Drunk Within the Last 30 days?: No Have you Ever Experienced Previous Episodes of Alcohol Withdrawal?: No Have you ever Experienced Withdrawal Seizures?: No Have you ever Experienced Delirium Tremens(DT)s?: No Have you ever undergone Alcohol Rehabilitation Treatment (i.e, inpt ot outpatie nt treatment programs)?: No Have you ever Experienced Blackouts?: No Have you ever Combined Alcohol with other Downers within the last 90 days?: No Have you ever Combined Alcohol with any other Substance of Abuse during the last 90 days?: No Positive Blood Alcohol level on Presentation? [PCS.BAL]: No Evidence of Increased Autonomic Activity (i.e. HR>120, tremor, sweating, agitation, nausea)?: No Result: 0
== END 2021-11-25 10:36 | disposition home or self-care (01) ==
PROVIDERS: Emergency Provider Physician Assistant; PCP Family Medicine
DX: S70.212A Abrasion, left hip, initial encounter (principal); W00.0XXA Fall on same level due to ice and snow, initial encounter; Z89.511 Acquired absence of right leg below knee
CPT/HCPCS: 99283; 99284; 72192; J7512

== ENCOUNTER 2021-11-25 19:02 | Emergency (ER) | payer MEDICARE, BC, SELFPAY ==
[2021-11-25 19:13] VITALS: BP 145/54; PULSE 62; RESP 16; TEMP 36.9; O2SAT 95
--- NOTE | 2021-11-25 19:30 | W.ED.GENAD ---
Discharge Plan Disposition Patient Disposition: HOME Condition: Stable Discharge Details Clinical Impression: Degenerative arthritis of hip Primary Care Provider: Gui Graham ED Provider: Chely Fernandez Meds and New Rx's Prescriptions: New prednisone 20 mg tablet 40 mg PO DAILY 7 Days Qty: 14 0RF Rx Instructions: Take 2 tabs daily in am oxycodone 5 mg tablet 5 mg PO Q6H PRN (Reason: pain) Qty: 7 0RF Rx Instructions: Take one tablet every 4 to 6 hours with Food, Do not drive or operate heavy machinery while taking this medication. Continued meloxicam submicronized 5 mg capsule 7.5 mg PO DAILY Qty: 14 0RF cyclobenzaprine 5 mg tablet 5 mg PO TID PRN (Reason: muscle spasm and pain) Qty: 30 0RF magnesium 250 mg tablet 500 mg PO HS 0RF Novolin N NPH U-100 Insulin 100 unit/mL suspension See Rx Instructions SC .COMPLEX Qty: 10 5RF Rx Instructions: 10 units SQ q AM and 30 Units SQ q PM. 10/25/20 aspirin 325 MG tablet 325 mg PO DAILY 0RF (DME) blood-glucose meter [Accu-Chek Guide Glucose Meter] Misc See Rx Instructions .ROUTE .MEDSUPPLY Qty: 1 0RF Rx Instructions: test as directed (DME) Accu-Chek Guide test strips Strip 1 ea Miscellaneous DAILY Qty: 300 3RF Rx Instructions: test 3 x day (DME) insulin syringe-needle U-100 [BD Insulin Syringe Ultra-Fine] 1 mL 31 gauge x 5/16 syringe See Rx Instructions .ROUTE .MEDSUPPLY Qty: 180 3RF Rx Instructions: 1 injection sq BID (DME) lancets Misc 1 ea Miscellaneous DAILY Qty: 300 3RF Rx Instructions: test 3 x /day duloxetine 30 mg capsule,delayed release(DR/EC) 30 mg PO DAILY Qty: 90 3RF losartan 100 mg tablet 100 mg PO DAILY Qty: 90 3RF metoprolol tartrate 25 mg tablet 25 mg PO BID Qty: 180 3RF chlorthalidone 50 mg tablet 100 mg PO DAILY Qty: 180 3RF amlodipine 10 mg tablet 10 mg PO DAILY Qty: 90 3RF Trulicity 1.5 mg/0.5 mL pen injector 1.5 mg subcut QWEEK Qty: 6 4RF metformin 500 mg tablet 500 mg PO BID Qty: 180 3RF atorvastatin 40 mg tablet 40 mg PO DAILY Qty: 90 3RF spironolactone [Aldactone] 25 mg tablet 25 mg PO DAILY Qty: 90 3RF tolterodine 1 mg tablet 1 mg PO BID Qty: 180 3RF ropinirole 8 mg tablet extended release 24 hr 8 mg PO DAILY Qty: 30 2RF oxycodone 5 mg Tablet 5 mg PO Q4-5H 0RF hydroxyurea 500 mg capsule 500 - 1,000 mg PO BID 0RF Rx Instructions: alternate 500 mg/1000 mg qod per Oncology acetaminophen 500 mg tablet 500 mg PO Q6H PRN (Reason: pain) Qty: 60 2RF lidocaine [Lidoderm] 5 % adhesive patch,medicated 1 patch topical DAILY Qty: 15 0RF Rx Instructions: leave on most painful area for up to 12 hrs Discharge Instructions Instructions: Arthritis (ED) Additional Instructions: Take the prednisone daily as prescribed. Continue to take the oxycodone 1 tablet every 4-6 hours as needed for moderate to severe pain. Continue with the lidocaine patches and alternating ice and heat. You were placed on a care management list to assist in getting a sooner appointment with orthopedics to discuss your hip. Follow up with primary care provider in 3-5 days. Return to ED sooner if any worsening or concerns. Increase oral fluids. Please take Tylenol with food every 4-6 hours as needed for pain and swelling. Referrals: Zurdo Carlson MD [ [facility] STAFF PHYSICIAN] - 2 weeks Gui Graham MD [Primary Care Provider] - Medical Decision Making Patient was given prednisone 40 mg here in the department will send home with prednisone. Patient does have oxycodone at home and lidocaine patches. Will consider sending a prescription for oxycodone and placed on the orthopedic follow-up list to possibly get her in sooner than December 29 which is her scheduled appointment with Ortho. Patient discharged in hemodynamically stable condition. I did review her previous visit and the pelvic exam. Patient was given prednisone 40 mg daily x7 days first dose given here in the department. Instructed to hold off on the meloxicam while taking the prednisone. I also did give a prescription for 7 tablets of oxycodone. This text was generated using IBillionaireation system, please disregard any oddities of phrase or misspellings. Medical Records Medical records reviewed: Yes I reviewed the patient's medical records. Medical records narrative: Reviewed earlier pelvic CT: FINDING: PELVIS: OSSEOUS: No pelvic nor hip fractures evident.Right hip prosthesis appears intact. There is degenerative osteoarthritic narrowing of the left hip joint but no evidence of acute left hip fracture.However, there is a corticated loose intra-articular body in the left hip joint, this measuring 8 x 6 millimeters. ANTERIOR ABDOMINAL WALL/GI:No evidence of significant anterior abdominal wall nor inguinal hernia in the pelvis evident.No obvious bowel obstruction. No evidence of appendicitis.No evidence of acute sigmoid diverticulitis.No free fluid in the pelvis. LYMPH NODES: There is no intrapelvic nor inguinal adenopathy. URINARY BLADDER: No calculi nor obvious masses evident REPRODUCTIVE: Small 6 x 7 millimeter calcification in the uterus is probably a fibroid. There are no abnormal adnexal masses.. IMPRESSION: 1. No evidence of pelvic nor hip fracture. Osteoarthritic degenerative changes plus corticated loose intra-articular body in the left hip. 2. Unremarkable right hip prosthesis. 3. No intrapelvic hematoma. Findings as above HPI General Mode of arrival: ambulatory. Date/Time Provider Initiated Documentation: 11/25/21 19:02. Limitations to Documentation: no limitations. Information obtained by: patient, RN notes reviewed and old records reviewed. HPI Narrative: 70-year-old female presents to the ER for the second time in 24 hours with a chief complaint of left hip pain. Patient was seen here for the same earlier today. She was given oxycodone tablets to go and lidocaine patches. Patient had a CT of her pelvis which showed some degenerative osteoarthritic narrowing of the left hip joint but no evidence of acute left hip fracture however there is a loose intra-articular body in the left hip joint measuring 8 x 6 mm. Patient states that she took an oxycodone earlier today but was told she can only take 1 daily. Denies any other associated symptoms no recent falls since being seen here earlier today. Related Data Home Medications Medication Instructions Recorded Confirmed aspirin 325 mg tablet 325 mg PO DAILY tab-cap 11/19/12 11/25/21 magnesium 250 mg tablet 500 mg PO HS tab 04/17/19 11/25/21 blood-glucose meter (Accu-Chek #1 each 03/17/20 11/23/21 Guide Glucose Meter) acetaminophen 500 mg tablet 500 mg PO Q6H PRN #60 tab 08/03/20 11/25/21 blood sugar diagnostic (Accu-Chek #300 strip 12/06/20 11/23/21 Guide test strips) insulin syringe-needle U-100 1 mL #180 ea 12/06/20 11/23/21 31 gauge x 5/16 (BD Insulin Syringe Ultra-Fine) lancets #300 each 12/06/20 11/23/21 duloxetine 30 mg capsule,delayed 30 mg PO DAILY #90 cap 01/19/21 11/25/21 release losartan 100 mg tablet 100 mg PO DAILY #90 tab 01/19/21 11/25/21 insulin NPH isoph U-100 human 100 See Rx Instructions SC .COMPLEX 03/03/21 11/25/21 unit/mL subcutaneous suspension #10 ml (Novolin N NPH U-100 Insulin isophane) metoprolol tartrate 25 mg tablet 25 mg PO BID #180 tab 03/22/21 11/25/21 chlorthalidone 50 mg tablet 100 mg PO DAILY #180 tab 04/17/21 11/25/21 amlodipine 10 mg tablet 10 mg PO DAILY #90 tab 04/25/21 11/25/21 dulaglutide 1.5 mg/0.5 mL 1.5 mg (0.5 mL) SUBCUT QWEEK #6 ml 06/15/21 11/25/21 subcutaneous pen injector (Trulicity) metformin 500 mg tablet 500 mg PO BID #180 tab 08/29/21 11/25/21 atorvastatin 40 mg tablet 40 mg PO DAILY #90 tab-cap 10/12/21 11/25/21 spironolactone 25 mg tablet 25 mg PO DAILY #90 tab 11/02/21 11/25/21 (Aldactone) tolterodine 1 mg tablet 1 mg PO BID #180 tab 11/02/21 11/25/21 ropinirole 8 mg tablet,extended 8 mg PO DAILY #30 tab 11/20/21 11/25/21 release 24 hr cyclobenzaprine 5 mg tablet 5 mg PO TID PRN #30 tab 11/23/21 11/25/21 meloxicam submicronized 5 mg 7.5 mg PO DAILY #14 cap 11/23/21 11/25/21 capsule hydroxyurea 500 mg capsule 500 - 1,000 mg PO BID 11/25/21 11/25/21 lidocaine 5 % topical patch 1 patch TOPICAL DAILY #15 ea 11/25/21 11/25/21 (Lidoderm) oxycodone 5 mg tablet 5 mg PO Q4-5H 11/25/21 11/25/21 oxycodone 5 mg tablet 5 mg PO Q6H PRN #7 tab 11/25/21 prednisone 20 mg tablet 40 mg PO DAILY 7 Days #14 tab 11/25/21 Previous Rx's Medication Instructions Recorded blood-glucose meter (Accu-Chek #1 each 03/17/20 Guide Glucose Meter) acetaminophen 500 mg tablet 500 mg PO Q6H PRN #60 tab 08/03/20 blood sugar diagnostic (Accu-Chek #300 strip 12/06/20 Guide test strips) insulin syringe-needle U-100 1 mL #180 ea 12/06/20 31 gauge x 5/16 (BD Insulin Syringe Ultra-Fine) lancets #300 each 12/06/20 duloxetine 30 mg capsule,delayed 30 mg PO DAILY #90 cap 01/19/21 release losartan 100 mg tablet 100 mg PO DAILY #90 tab 01/19/21 insulin NPH isoph U-100 human 100 See Rx Instructions SC .COMPLEX 03/03/21 unit/mL subcutaneous suspension #10 ml (Novolin N NPH U-100 Insulin isophane) metoprolol tartrate 25 mg tablet 25 mg PO BID #180 tab 03/22/21 chlorthalidone 50 mg tablet 100 mg PO DAILY #180 tab 04/17/21 amlodipine 10 mg tablet 10 mg PO DAILY #90 tab 04/25/21 dulaglutide 1.5 mg/0.5 mL 1.5 mg (0.5 mL) SUBCUT QWEEK #6 ml 06/15/21 subcutaneous pen injector (Trulicity) metformin 500 mg tablet 500 mg PO BID #180 tab 08/29/21 atorvastatin 40 mg tablet 40 mg PO DAILY #90 tab-cap 10/12/21 spironolactone 25 mg tablet 25 mg PO DAILY #90 tab 11/02/21 (Aldactone) tolterodine 1 mg tablet 1 mg PO BID #180 tab 11/02/21 ropinirole 8 mg tablet,extended 8 mg PO DAILY #30 tab 11/20/21 release 24 hr cyclobenzaprine 5 mg tablet 5 mg PO TID PRN #30 tab 11/23/21 meloxicam submicronized 5 mg 7.5 mg PO DAILY #14 cap 11/23/21 capsule lidocaine 5 % topical patch 1 patch TOPICAL DAILY #15 ea 11/25/21 (Lidoderm) oxycodone 5 mg tablet 5 mg PO Q6H PRN #7 tab 11/25/21 prednisone 20 mg tablet 40 mg PO DAILY 7 Days #14 tab 11/25/21 Allergies Allergy/AdvReac Type Severity Reaction Status Date / Time clopidogrel Allergy Skin Rash Verified 11/25/21 19:23 oxybutynin AdvReac Intermediate Verified 11/25/21 19:23 propoxyphene AdvReac Nausea Verified 11/25/21 19:23 General Stated Complaint: Orthopedic KIMI: 2 Review of Systems All systems reviewed & are unremarkable except as noted in HPI and below Musculoskeletal Musculoskeletal: Reports as per HPI, Reports arthralgias and Reports radiating pain into limb (Left hip into left leg) PFSH All Active Problems (Updated 11/25/21 @ 19:43 by Chely Fernandez) Abrasion, left hip, initial encounter (Acute) Degenerative arthritis of hip (Acute) Tendonitis of both rotator cuffs (Acute) Steroid injection: 11/16/2021 Contusion (Acute) Fall (Acute) Pleuritic chest pain (Acute) Ear canal blister (Acute) Osteoarthritis of right knee (Acute) History of total right hip replacement (Acute 08/03/20) Peripheral vascular disease (Chronic) S/P right SFA antioplasty an sstenting, 2003. Left DVA to [place] popliteal bypass with Phenix-Ruben, 2003. 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 Chronic pain of left lower extremity (Chronic) await clinical fellow recommendations Primary osteoarthritis of right knee (Chronic) RLS (restless legs syndrome) (Chronic) Osteoarthritis of right hip (Chronic) Injection under fluoroscopy: 10/01/2019 Hyperkalemia (Acute) Thrombocytosis (Acute) Atypical chest pain (Acute) Hip pain, right (Acute) Medical History Diabetes mellitus, type II diabetes with peripheral vascular disease Hypertension Surgical History Angioplasty L leg 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 Sister Skin cancer Brother No problems noted. Son Alcohol abuse Depression Maternal Grandfather Stomach cancer Paternal Grandfather No problems noted. Maternal Grandmother No problems noted. Paternal Grandmother No problems noted. Daughter Depression Social History Smoking/Tobacco Use Status: Former Tobacco Use Tobacco: How many years used: 37 Smoking risk assessment performed?: Yes Alcohol Intake: current Alcohol Intake frequency: a few times a week Alcohol type: beer Drug use: Never Substance use type: does not use Caregiver/Support person: No Household members: spouse Housing: house Do you need help understanding health information?: Rarely current occupation: [employer] Pets and animals: Yes Pets and animals: cat(s) Sexually active: No Do you think of yourself as: straight/heterosexual Current gender identity: female What is your relationship status?: How often do you talk on the phone with friends or family?: once per week How often do you get together with friends or relatives?: decline to answer How often do you attend protestant or jehovah's witness services?: 1-3 times per year Do you belong to any clubs or organized social groups?: no Panel score (0-1 are the most socially isolated patients): 1 What type of physical activity do you participate in: none Carmelina/Congregation: [employer] Special carmelina needs: No Seatbelt use: always Helmet use: Yes Helmet use: always Drive intox 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: No Do you feel safe at home: Yes Do you feel safe in your relationship?: Yes Would you like helpful sources: No Exam Narrative Exam Narrative: Constitutional: Alert and oriented x3. Appears stated age. Normal body habitus. Head: Normocephalic, no trauma. Eyes: Eyelids symmetrical without lesions, discharge, or swelling. Chest: RRR, Normal S1, S2, distal pulses intact. Resp: Lungs clear to auscultation bilaterally, no wheezes, rales, or rhonchi. Abdomen: Soft, non-distended, Normoactive bowel sounds all 4 quads. Musculoskeletal: Normal gait, 5/5 strength to all four extremities. Left below the knee amputation. No erythema or swelling noted. Skin: No suspicious rashes or lesions. Capillary refill less than 2 sec. Neurologic: Cranial nerves II-XII intact. Alert and oriented x 3. Motor: No deficits noted. Sensory: Intact bilaterally all 4 extremities. Reflexes: DTR's intact bilaterally.. Hematologic/Lymphatic: No ecchymosis, no lymphadenopathy. Course Vital Signs Vital signs: Vital Signs Temperature 36.9 C 11/25/21 19:13 Pulse 62 11/25/21 19:13 Respiratory Rate 16 11/25/21 19:13 Blood Pressure 145/54 H 11/25/21 19:13 Pulse Oximetry 95 11/25/21 19:13 Temperature 36.9 C 11/25/21 19:13 Temperature Source Skin 11/25/21 19:13 Pulse 62 11/25/21 19:13 Respiratory Rate 16 11/25/21 19:13 Respiratory Effort Non-Labored 11/25/21 19:18 Blood Pressure 145/54 H 11/25/21 19:13 Blood Pressure Position Sitting 11/25/21 19:13 Pulse Oximetry 95 11/25/21 19:13 Oxygen Delivery Method Room Air 11/25/21 19:13 Oxygen Flow Rate 0 11/25/21 19:13 Pain Level 10 11/25/21 19:13
[2021-11-25] MEDS: predniSONE 20 MG TAB 40 MG PO (19:42)
== END 2021-11-25 19:55 | disposition home or self-care (01) ==
PROVIDERS: Emergency Provider Registered Nurse Emergency; PCP Family Medicine
DX: M16.12 Unilateral primary osteoarthritis, left hip (principal)
CPT/HCPCS: 99283; J7512

== ENCOUNTER 2021-11-30 02:31 | Outpatient (CLI) | payer MEDICARE, BC, SELFPAY ==
--- NOTE | 2021-11-30 08:45 | DI.RAD_ITS ---
Exam(s) RF JOINT INJECTION FLUORO GUID EXAM: RF JOINT INJECTION FLUORO GUID CLINICAL HISTORY: L HIP INJ UNDER FLUORO,PRIMARY OA, M16.12 TECHNIQUE: Fluoroscopy provided. Radiologist not present. CONTRAST MATERIAL: None COMPARISON: No exams were available for comparison FINDINGS: Fluoroscopy was provided for left hip therapeutic injection Submitted image(s) reveal the needle tip at the junction of the femoral head and neck. There is intr a-articular contrast Please refer to the procedure report for complete details. Cumulative Dose: jackson Brown=14.2 mGy IMPRESSION: RADIATION DOSE DELIVERED:
--- NOTE | 2021-11-30 15:50 | W.PROCNOTE ---
Procedure Note Date of procedure: 11/30/21 Procedure: Left Hip Injection with Fluoroscopic Guidance Surgeon/Proceduralist/Physician: Zurdo Carlson Procedure Diagnosis: Left Hip Osteoarthritis Procedure Indications: Mary has had acute, debilitating pain of the LEFT hip and groin. Noninvasive measures have been tried. To serve as both diagnostic and therapeutic, an injection under fluoroscopy was recommended. I had discussed the risks of the procedure and the patient elected to proceed. Procedure Description: Mary was greeted in the flouroscopy room. The correct side was identified and the consent was reviewed with the patient and signed. The patient was then placed in the supine position on the fluoroscopy table. The LEFT hip was then prepped with Chloraprep. The anterolateral injection starting point was identiifed by bony landmarks and fluoroscopy. The skin and soft tissue in the tract of the injection was anesthetized with 1% Lidocaine. A spinal needle was then inserted deep into the hip joint at the level of the lateral femoral neck under fluoroscopic guidance. A small amount of Omnipaque solution was injected to confirm intraarticular placement. Once confirmed, the hip was injected with 6cc of 0.5% Bupivicaine and 80mg of Depo-Medrol. A bandaid was placed on the injection site. The patient tolerated the procedure well and noted improvement in pre-injection pain.
[2021-11-30] MEDS: Bupivacaine 0.5% Pres-Free 30 ML VIAL 5 ML IJ (15:51)
[2021-11-30] MEDS: Omnipaque 300 MG/ML 10 ML BTL 1.5 ML IJ (15:52)
[2021-11-30] MEDS: methylPREDNISolone ACETATE 80 MG/ML VIAL IM (15:53)
== END 2021-11-30 02:51 ==
PROVIDERS: PCP Family Medicine; Visit Provider Student in an Organized Health Care Education/Training Program
DX: M16.12 Unilateral primary osteoarthritis, left hip (principal); M25.552 Pain in left hip
CPT/HCPCS: 20610; 77002; J1040

== ENCOUNTER 2021-12-19 04:42 | Outpatient (CLI) | payer MEDICARE, BC, SELFPAY ==
[2021-12-19 14:06] LABS: Abs Immature Grans 0.03 10^3/uL (0.0-0.06); Absolute Basophil Count 0.03 10^3/uL (0.0-0.2); Absolute Eosinophil Count 0.02 10^3/uL (0.0-0.7); Absolute Lymphocyte Count 0.99 10^3/uL (1.2-3.4); Absolute Monocyte Count 0.54 10^3/uL (0.1-0.8); Absolute Neutrophil Count 2.82 10^3/uL (1.2-6.7); Basophils % 0.7; Eosinophils % 0.5; HCT 39.5 % (36.0-46.0); HGB 12.9 g/dL (11.2-15.7); Immature Grans % 0.7; Lymphocytes % 22.3; MCH 36.9 pg (27.0-33.0); MCHC 32.7 % (32.0-36.0); MCV 112.9 fL (80-95); MPV 9.6 fL (8.0-11.0); Monocytes % 12.2; Neutrophils % 63.6; Nucleated RBC 0 %; Platelet Count 269 10^3/uL (130-400); RDW 13.6 % (11.7-14.6); RDW-SD 56.4 fL; WBC 4.43 10^3/uL (4.4-10.8)
[2021-12-19 14:55] LABS: Macrocytosis 1+; Polychromasia Present
[2021-12-19 15:07] LABS: ALT 30 U/L (14-59); AST 13 U/L (15-37); Albumin 4.3 g/dL (3.4-5.0); Alkaline Phosphatase 70 U/L (46-116); Anion Gap 7.1 mmol/L (3-11); BUN 34 mg/dL (7-18); Bilirubin, Total 0.7 mg/dL (0.2-1.0); CO2 27.9 mmol/L (21.0-32.0); CREATININE 1.1 mg/dL (0.55-1.02); Calcium 9.5 mg/dL (8.5-10.1); Chloride 105 mmol/L (98-107); Glucose 115 mg/dL (74-106); Potassium 4.5 mmol/L (3.5-5.1); Sodium 140 mmol/L (136-145); TSH (W/Ref FT4) 2.63 uIU/mL (0.36-3.74); Total Protein 7.5 g/dL (6.4-8.2)
== END 2021-12-19 04:43 | disposition home or self-care (01) ==
LOC: LBO 04:42
PROVIDERS: PCP Family Medicine; Visit Provider Internal Medicine
DX: E03.9 Hypothyroidism, unspecified (principal); D47.1 Chronic myeloproliferative disease
CPT/HCPCS: 36415; 80053; 84443; 85025

== ENCOUNTER 2022-02-20 01:51 | Outpatient (CLI) | payer MEDICARE, BC, SELFPAY ==
[2022-02-20 10:20] LABS: Abs Immature Grans 0.07 10^3/uL (0.0-0.06); Absolute Basophil Count 0.01 10^3/uL (0.0-0.2); Absolute Eosinophil Count 0.01 10^3/uL (0.0-0.7); Absolute Lymphocyte Count 0.67 10^3/uL (1.2-3.4); Absolute Monocyte Count 0.56 10^3/uL (0.1-0.8); Absolute Neutrophil Count 4.17 10^3/uL (1.2-6.7); Basophils % 0.2; Eosinophils % 0.2; HCT 38.6 % (36.0-46.0); HGB 12.4 g/dL (11.2-15.7); Immature Grans % 1.3; Lymphocytes % 12.2; MCH 35.9 pg (27.0-33.0); MCHC 32.1 % (32.0-36.0); MCV 112 fL (80-95); MPV 9.8 fL (8.0-11.0); Monocytes % 10.2; Neutrophils % 75.9; Platelet Count 286 10^3/uL (130-400); RBC 3.45 10^6/uL (3.93-5.22); RDW 13.5 % (11.7-14.6); RDW-SD 55.3 fL; WBC 5.49 10^3/uL (4.4-10.8)
[2022-02-20 11:07] LABS: ALT 24 U/L (14-59); AST 27 U/L (15-37); Albumin 3.8 g/dL (3.4-5.0); Alkaline Phosphatase 57 U/L (46-116); Anion Gap 10.6 mmol/L (3-11); BUN 46 mg/dL (7-18); Bilirubin, Total 0.5 mg/dL (0.2-1.0); CO2 24.4 mmol/L (21.0-32.0); CREATININE 1.2 mg/dL (0.55-1.02); Chloride 105 mmol/L (98-107); Estimated GFR 44.29 (mL/min/1.73m2); Glucose 148 mg/dL (74-106); Potassium 4.3 mmol/L (3.5-5.1); Sodium 140 mmol/L (136-145); Total Protein 7.5 g/dL (6.4-8.2)
== END 2022-02-20 01:52 | disposition home or self-care (01) ==
LOC: LBO 01:51
PROVIDERS: PCP Family Medicine; Visit Provider Nurse Practitioner Adult Health
DX: D47.1 Chronic myeloproliferative disease (principal)
CPT/HCPCS: 36415; 80053; 85025; J1040

== ENCOUNTER → 2022-04-10 10:51 | Outpatient (BNVA) | payer MEDICARE, BC, SELFPAY | PROVIDERS: PCP Family Medicine; Referring Provider Family Medicine; Visit Provider Physician Assistant | DX: M17.11 Unilateral primary osteoarthritis, right knee (principal); M75.81 Other shoulder lesions, right shoulder; M75.82 Other shoulder lesions, left shoulder | CPT/HCPCS: 20610; J7325 ==

== ENCOUNTER → 2022-04-17 01:39 | Outpatient (CLI) | payer MEDICARE, BC, SELFPAY ==
--- NOTE | 2022-04-17 07:15 | DI.NM_ITS ---
APPROVED REPORT Exam: Pharmacologic Patient Location: Out-Patient Room/Bed: Stress Nurse: Rosangela Woods RN Ordering Provider:EDITH PHAN, Contact Number: [phone] BMI: 30.98 Baseline Rhythm: Sinus Rhythm Indications: chest pain Medical History Medical History: Fakk, PVD, CAD w/ stents, HTN, HLD, DM II, hx of tobacco use, ALEX, palpitations, hyp erkalemia, depression, bilateral hip replacements, left leg BKA Cardiac Medications: spironolactone, metoprolol succinate, metformin, magnesium, losartan, insulin [employer] H, chlorthalidone, atorvastatin, ASA, amlodpine Allergies: clopidogrel, oxybutin, propoxphene Cardiac Risk Factors: PVC, HTN, Diabetes, former tobacco use, HLD, obesity Pretest Chest Pain Characteristics: None Exercise History: Sedentary Physical Disabilities: Bilateral hip replacements, left BKA Lung Sounds: Clear Heart Sounds: s1/s2, regular Stress Test Details Test: Pharmacologic stress testing performed using 0.4 mg of regadenoson per 5 mL given IV over 10 s econds. Reason for pharmacologic stress test: physical limitation. Nuclear Acquisition: Rest Tc-99m/Stress Tc-99m 1 day Rest Isotope: Tc-99m Sestamibi. Dose: 10.5 Date: 04/17/2022 Injection Time: 11:15 Stress Isotope: Tc-99m Sestamibi. Dose: 32 Date: 04/17/2022 Injection Time: 13:18 HR Resting HR Supine: 63 bpm Max Heart Rate (APMHR): 149.566685 bpm Target HR (85% APMHR): 126.427767 bpm Max HR Achieved: 72 bpm % of APMHR: 48.32 Recovery HR: 71 bpm BP Resting BP Supine: 124/54 mmHg Max BP: 126/52 mmHg Recovery BP: 126/52 mmHg ECG Resting ECG: Sinus Rhythm Ectopy: None Stress ECG: Sinus Rhythm ST Change: No significant ST segment changes noted Arrhythmia: None Recovery ECG: Sinus Rhythm Recovery ST Change: No significant ST segment changes noted Recovery Arrhythmia: None Clinical Stress Symptoms: None Rate Pressure Product: [id number] Stress ECG Conclusion 1. Resting electrocardiogram showed poor R wave progression 2. This was a pharmacologic myocardial perfusion imaging study using regadenoson 3. Peak heart rate achieved was 49% of predicted for age 4. Electrocardiographic portion of the test was nondiagnostic 5. See MPI report Stress Test Summary STAGE HR BP SpO2 Symptoms NOTES Supine 63 124/54 1 min post Lexiscan injection 65 88/50 3 min post Lexiscan injection 71 122/48 6 min post Lexiscan injection 71 126/52 MPI Conclusion Normal myocardial perfusion without evidence of ischemia or prior infarction EF is 59% with normal wall motion Radiologist Interpretation Radiologist Interpretation by: Eder Riddle MD Interpretation Date/Time: 04/17/2022 16:40:02
[2022-04-17] MEDS: Regadenoson 0.4 MG/5 ML SYR IVP (13:38)
== END ==
PROVIDERS: PCP Family Medicine; Visit Provider Family Medicine
DX: R07.9 Chest pain, unspecified (principal)
CPT/HCPCS: 78452; 93016; 93018; 93017; J2785

== ENCOUNTER 2022-05-13 17:58 | Inpatient (IN) | payer MEDICARE, BC, SELFPAY ==
[2022-05-13] VITALS (23 sets, daily range): BP systolic 139–143; BP diastolic 43–85; PULSE 67; RESP 17; TEMP 37.1; O2SAT 88–99
--- NOTE | 2022-05-13 17:30 | DI.RAD_ITS ---
Exam(s) XR PELVIS AP XR FEMUR LT EXAM: XR PELVIS AP and XR femur LT CLINICAL HISTORY: fall. TECHNIQUE: 2D digital imaging was performed.Four images were obtained. COMPARISON: CR,XR XR HIP PELVIS ADULT BL from 06/13/2021 CR,XR XR FEMUR LT from 05/13/2022 FINDINGS: BONES: There is an acute oblique fracture seen in the proximal left femur extending along the distal shaft of the femoral prosthesis. There is moderate displacement and lateral angulation of the distal fracture. No bony destructive lesion is seen. The patient has a left below the knee amputation. JOINTS: No dislocation present. No joint space narrowing is present. The patient has bilateral total hip replacements. The right hip replacement is incompletely visualized but grossly unremarkable. SOFT TISSUE: There is soft tissue swelling of the thigh. Atherosclerosis is present. IMPRESSION: 1. Acute fracture involving the proximal left femoral diaphysis adjacent to the distal shaft of the l eft femoral prosthesis. There is moderate displacement and lateral angulation of the distal fracture. 2. No other fracture or dislocation is identified. DATA REPOSITORY: RADIATION DOSE DELIVERED:
--- NOTE | 2022-05-13 17:46 | W.ED.GENAD ---
Discharge Plan Disposition Patient Disposition: [facility] INPATIENT Condition: Stable Discharge Details Clinical Impression: Fracture of left femur following insertion of orthopedic implant Admit Date/Time: 05/13/22 23:27 Admit Provider: Maury Venegas Attending Provider: Maury Venegas Primary Care Provider: Gui Graham ED Provider: Qamar Bowden Discharge Data Discharge Date/Time-TO BE ENTERED AT DEPARTURE: 05/14/22 01:00 Medical Decision Making Patient presenting to the emergency department via EMS for chief complaint of mechanical fall with injury to left hip. Patient reports severe pain and discomfort to left hip and pelvis with muscular spasms to the thigh. 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 Physical exam shows severe tenderness with any movement of the left lower extremity along with tenderness to palpation of the lateral hip, pelvis, and femur. We will plan on performing radiological imaging. Will treat patient's pain pending result Review of radiological imaging shows a significant fracture just below the femur hardware. Did call and speak with orthopedic surgeon whom stated that unfortunately we do not have the needed hardware for repair of patient's injury which is complicated by the recent hip replacement. We will reach out to [facility] [place] [place] given that they had just performed the replacement less than 8 weeks ago. Spoke with Dr. Barahona at [facility] [place] [place]. He stated that they would accept patient for surgical repair but at this time they have no orthopedic beds available. He requested to have patient admitted here to our medicine team for pain control pending arrival and bed availability at this facility. Patient to be n.p.o. after midnight. Patient is in agreement this. Called and spoke with hospitalist who agreed to have patient admitted. I also did page anesthesia to see if they would be able to perform block due to patient needing multiple doses of IV push hydromorphone to control pain. EKG was performed and patient is in sinus rhythm with a rate of 67. Please see physician interpretation for full interpretation of EKG. No acute STEMI was noted. HPI General Mode of arrival: EMS. Date/Time Provider Initiated Documentation: 05/13/22 18:16. Limitations to Documentation: no limitations. Information obtained by: patient, EMS and RN notes reviewed. History of Present Illness 71 year old F presents to the emergency department with the chief complaint of Mechanical fall with left hip and pelvis injury, described as severe, with intensity rated at 10. Quality is described as sharp, and is localized to the left and lower extremity. Patient reports no radiation. Patient started experiencing this minute(s) (30) and it has been constant. Immobilization improves symptom(s), Movement worsens symptoms . Patient notes no other symptoms.. Patient did receive the following treatments prior to arrival, other (EMS gave 100 mcg of fentanyl) Related Data Home Medications Medication Instructions Recorded Confirmed aspirin 325 mg tablet 325 mg PO DAILY 11/19/12 05/13/22 magnesium 250 mg tablet 500 mg PO HS 04/17/19 05/13/22 blood-glucose meter (Accu-Chek #1 ea 03/17/20 05/13/22 Guide Glucose Meter) acetaminophen 500 mg tablet 500 mg PO Q6H PRN pain #60 tabs 08/03/20 05/13/22 blood sugar diagnostic (Accu-Chek #300 strips 12/06/20 05/13/22 Guide test strips) insulin syringe-needle U-100 1 mL #180 ea 12/06/20 05/13/22 31 gauge x 5/16 (BD Insulin Syringe Ultra-Fine) lancets #300 ea 12/06/20 05/13/22 insulin NPH isoph U-100 human 100 See Rx Instructions subcut 03/03/21 05/13/22 unit/mL subcutaneous suspension .COMPLEX #10 mL (Novolin N NPH U-100 Insulin isophane) metformin 500 mg tablet 500 mg PO BID #180 tabs 08/29/21 05/13/22 atorvastatin 40 mg tablet 40 mg PO DAILY #90 tab-caps 10/12/21 05/13/22 spironolactone 25 mg tablet 25 mg PO DAILY #90 tabs 11/02/21 05/13/22 (Aldactone) cyclobenzaprine 5 mg tablet 5 mg PO TID PRN muscle spasm and 11/23/21 05/13/22 pain #30 tabs hydroxyurea 500 mg capsule 500 mg PO DAILY #90 caps 01/09/22 05/13/22 chlorthalidone 50 mg tablet 100 mg PO DAILY #180 tabs 04/03/22 05/13/22 losartan 100 mg tablet 100 mg PO DAILY #90 tabs 04/03/22 05/13/22 amlodipine 10 mg tablet 10 mg PO DAILY #90 tabs 04/05/22 05/13/22 ropinirole 8 mg tablet,extended 8 mg PO DAILY #30 tabs 04/05/22 05/13/22 release 24 hr duloxetine 30 mg capsule,delayed 60 mg PO DAILY #90 caps 04/10/22 05/13/22 release metoprolol succinate 25 mg 25 mg PO DAILY #30 tabs 04/10/22 05/13/22 tablet,extended release 24 hr Previous Rx's Medication Instructions Recorded blood-glucose meter (Accu-Chek #1 ea 03/17/20 Guide Glucose Meter) acetaminophen 500 mg tablet 500 mg PO Q6H PRN pain #60 tabs 08/03/20 blood sugar diagnostic (Accu-Chek #300 strips 12/06/20 Guide test strips) insulin syringe-needle U-100 1 mL #180 ea 12/06/20 31 gauge x 5/16 (BD Insulin Syringe Ultra-Fine) lancets #300 ea 12/06/20 insulin NPH isoph U-100 human 100 See Rx Instructions subcut 03/03/21 unit/mL subcutaneous suspension .COMPLEX #10 mL (Novolin N NPH U-100 Insulin isophane) metformin 500 mg tablet 500 mg PO BID #180 tabs 08/29/21 atorvastatin 40 mg tablet 40 mg PO DAILY #90 tab-caps 10/12/21 spironolactone 25 mg tablet 25 mg PO DAILY #90 tabs 11/02/21 (Aldactone) cyclobenzaprine 5 mg tablet 5 mg PO TID PRN muscle spasm and 11/23/21 pain #30 tabs hydroxyurea 500 mg capsule 500 mg PO DAILY #90 caps 01/09/22 chlorthalidone 50 mg tablet 100 mg PO DAILY #180 tabs 04/03/22 losartan 100 mg tablet 100 mg PO DAILY #90 tabs 04/03/22 amlodipine 10 mg tablet 10 mg PO DAILY #90 tabs 04/05/22 ropinirole 8 mg tablet,extended 8 mg PO DAILY #30 tabs 04/05/22 release 24 hr duloxetine 30 mg capsule,delayed 60 mg PO DAILY #90 caps 04/10/22 release metoprolol succinate 25 mg 25 mg PO DAILY #30 tabs 04/10/22 tablet,extended release 24 hr Allergies Allergy/AdvReac Type Severity Reaction Status Date / Time clopidogrel Allergy Skin Rash Verified 05/13/22 17:48 oxybutynin AdvReac Intermediate Verified 05/13/22 17:48 propoxyphene AdvReac Nausea Verified 05/13/22 17:48 General Stated Complaint: Orthopedic KIMI: 4 Review of Systems Constitutional Constitutional: Denies frequent falls Eyes Eyes: Denies change in vision ENT Ears, Nose, Mouth, and Throat: Denies neck pain Cardiovascular Cardiovascular: Denies chest pain and Denies dyspnea Respiratory Respiratory: Denies dyspnea Gastrointestinal Gastrointestinal: Denies abdominal pain Musculoskeletal Musculoskeletal: Reports as per HPI, Denies back pain, Denies neck pain, Denies numbness and Denies tingling Integumentary/Breasts Skin/Breast: Denies wounds Neurologic Neurologic: Denies frequent falls, Denies numbness and Denies tingling PFSH All Active Problems Fracture, femur closed, shaft (Acute) Fatigue (Acute) Chest pain (Acute) Tendonitis of both rotator cuffs (Acute) Steroid injection: 02/20/22; 11/16/2021 Contusion (Acute) Fall (Acute) Pleuritic chest pain (Acute) Ear canal blister (Acute) Osteoarthritis of right knee (Acute) Most recent Synvisc injections: 04/10/2022; 09/26/2021 She has been provided with Synvisc injections for many years with Dr. Harvey. History of total right hip replacement (Acute 08/03/20) Peripheral vascular disease (Chronic) S/P right SFA antioplasty an sstenting, 2003. Left DVA to [place] popliteal bypass with Hector-Ruben, 2003. CAD (coronary artery disease) (Chronic) S/P stent 2004 Hypertension (Chronic) Hyperlipidemia (Chronic) Atherosclerosis of [place] coronary artery (Acute) Stent RCA 2007 B12 deficiency (Acute 04/08/15) Carpal tunnel syndrome (Acute 05/16/09) Cataracts, both eyes (Acute) 11/11/15 OPTICAL EXPRESSIONS; EARLY CATARACTS Diabetes mellitus (Chronic 02/18/13) Essential hypertension (Acute 08/18/13) History of tobacco use (Acute) Hyperlipidemia (Acute 01/14/14) ALEX (obstructive sleep apnea) (Acute 03/11/18) Palpitations (Acute 11/06/17) Peripheral vascular disease (Acute 02/18/13) Bypass Left Stent Right 2006 left BKA 08/28 Polyp of colon (Acute 09/15/09) 09/25 COLONOSCOPY: ONE TUBULAR ADENOMA AND FOUR HYPERPLASTIC POLYPS. Chronic pain of left lower extremity (Chronic) await rolling machine tender recommendations Primary osteoarthritis of right knee (Chronic) RLS (restless legs syndrome) (Chronic) Osteoarthritis of right hip (Chronic) Injection under fluoroscopy: 10/01/2019 Hyperkalemia (Acute) Thrombocytosis (Acute) Atypical chest pain (Acute) Hip pain, right (Acute) Medical History Diabetes mellitus, type II diabetes with peripheral vascular disease Hypertension Surgical History Angioplasty L leg 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 Sister Skin cancer Brother No problems noted. Son Alcohol abuse Depression Maternal Grandfather Stomach cancer Paternal Grandfather No problems noted. Maternal Grandmother No problems noted. Paternal Grandmother No problems noted. Daughter Depression Social History Smoking/Tobacco Use Status: Former Tobacco Use tobacco type: cigarettes Tobacco: How many years used: 37 Second Hand Exposure: Yes Smoking risk assessment performed?: Yes Alcohol Intake: current Alcohol Intake frequency: a few times a month Alcohol type: beer and hard liquor Drug use: Never Substance use type: does not use Caregiver/Support person: No Household members: none Housing: house Do you need help understanding health information?: Rarely current occupation: [employer] Pets and animals: Yes Pets and animals: cat(s) Sexually active: No Do you think of yourself as: straight/heterosexual Current gender identity: female What is your relationship status?: How often do you talk on the phone with friends or family?: three or more times per week How often do you get together with friends or relatives?: decline to answer How often do you attend roman catholic or orthodoxy services?: 1-3 times per year Do you belong to any clubs or organized social groups?: no Panel score (0-1 are the most socially isolated patients): 2 What type of physical activity do you participate in: none Carmelina/Temple: Bahai Special carmelina needs: No Seatbelt use: always Helmet use: Yes Helmet use: always Drive intox 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 helper/driver: No Do you feel safe at home: Yes Do you feel safe in your relationship?: Yes Would you like helpful sources: No Exam Const General: cooperative Orientation: alert, awake and oriented x3 Resp Effort & Inspection: normal respiratory effort, able to speak in complete sentences and no respiratory distress Back/Spine/Pelvis Thoracic/Lumbar Spine: No lumbar spinal tenderness Pelvis: no pain with anterior-posterior compression and no buttock tenderness Skin General skin exam: no rashes or lesions noted Neuro General: patient alert, patient awake, patient oriented x3, moves all extremities and no focal motor deficits Sensory Exam: no sensory deficits noted Extrem Left lower extremity: hip/thigh Details: tenderness Location: of the hip Location: anteriorly, anterolaterally and over the great trochanter and of the proximal upper leg and abnormal ROM (Severe pain with any movement); no abrasions and no lacerations, knee Details: normal to inspection; no tenderness and lower leg (Below the knee amputation) Course Vital Signs Vital signs: Vital Signs Temperature 37.1 C 05/13/22 17:41 Pulse 67 05/13/22 17:41 Respiratory Rate 17 05/13/22 17:41 Blood Pressure 143/43 H 05/13/22 17:41 Pulse Oximetry 99 05/13/22 17:41 Temperature 37.1 C 05/13/22 17:41 Temperature Source Temporal Artery Scan 05/13/22 17:41 Pulse 67 05/13/22 17:41 Respiratory Rate 17 05/13/22 17:41 Blood Pressure 143/43 H 05/13/22 17:41 Blood Pressure Position Supine 05/13/22 17:41 Pulse Oximetry 99 05/13/22 17:41 Oxygen Delivery Method Room Air 05/13/22 17:41 Oxygen Flow Rate 0 05/13/22 17:41 Pain Level 10 05/13/22 17:41
[2022-05-13] MEDS: HYDROmorphone 2 MG/ML SYR 1 MG IVP ×3 (17:57→20:22)
--- NOTE | 2022-05-13 19:00 | DI.CT_ITS ---
Exam(s) CT LOWER EXTREMITY LT WO EXAM: CT LOWER EXTREMITY LT WO CLINICAL HISTORY: fall- femur fx. TECHNIQUE: Imaging Protocol: Axial computed tomography images with coronal and sagittal reformatted images were created and reviewed. COMPARISON: CR,XR XR FEMUR LT from 05/13/2022 CR,XR XR PELVIS AP from 05/13/2022 FINDINGS: Bones: There is an acute oblique fracture involving the proximal diaphysis of the left femur. There is near complete lateral displacement of the distal fracture. There is angulation of the fracture w ith the apex directed laterally. There is also a lucency seen in the posterior aspect of the greater trochanter suspicious for nondisplaced fracture. (Series 4, images [id number]). No other fractures id entified. No cellulitic or osteomyelitic changes are identified. The patient has a left total hip r eplacement. No lytic or sclerotic lesions are identified. Soft Tissues: There is edema seen in the soft tissues lateral to the greater trochanter and gluteal m uscles. There is a small lipoma in the left gluteal muscle. Atherosclerosis is present. Diverticul osis is seen in the sigmoid colon, but no evidence of acute diverticulitis. IMPRESSION: 1. Acute, displaced and angulated fracture involving the proximal left femoral diaphysis involving th e distal left SVETLANA hardware. 2. Lucency seen within the posterior aspect of the greater trochanter suspicious for nondisplaced fra cture. RADIATION DOSE DELIVERED: 698.73mGy.cm Total DLP 698.73mGy.cm Total DLP DATA REPOSITORY: All CT scans at this facility are submitted to the National Radiology Data Registry (NRDR) Dose Index Registry (DIR) with the [employer] (ACR). RADIATION OPTIMIZATION: All CT scans at this facility use at least one of these dose optimization te chniques: automated exposure control; mA and/or kV adjustment per patient size (includes targeted exa ms where dose is matched to clinical indication); or iterative reconstruction.
--- NOTE | 2022-05-13 19:17 | DI.VRAD_ITS ---
PROCEDURE INFORMATION: Exam: XR Left Femur Exam date and time: 05/13/2022 18:59 Age: 71 years old Clinical indication: Injury or trauma; Blunt trauma; Left; Injury details: PT fell on L hip; SX L hip 03/22/22; Prior surgery; Surgery date: 1-6 months; Patient HX: Fall, trauma TECHNIQUE: Imaging protocol: Radiologic exam of the Left femur. Views: 2 views. COMPARISON: CR XR PELVIS AP 05/13/2022 18:56 FINDINGS: Tubes, catheters and devices: Acetabular component of the left SVETLANA appears intact. No dislocation. Bones/joints: Acute fracture, proximal left femoral diaphysis, extending across the tip of the left SVETLANA hardware. There is a moderate apex lateral angulation on this frontal view. Impaction across the intertrochanteric femur and diaphysis by at least 6 cm. The bones are demineralized. Below the knee amputation. Soft tissues: Soft tissue swelling surrounding the fracture site. Vasculature: Atherosclerosis. IMPRESSION: 1. Acute fracture, proximal left femoral diaphysis, extending across the tip of the left SVETLANA hardware. Further details as above. 2. Acetabular component of the left SVETLANA appears intact. No dislocation. Dictated and Authenticated by: Corrine Ortiz MD. Ordering:GINGER Foote MD
--- NOTE | 2022-05-13 19:18 | DI.VRAD_ITS ---
PROCEDURE INFORMATION: Exam: XR Pelvis Exam date and time: 05/13/2022 18:56 Age: 71 years old Clinical indication: Hip pain; Left hip; Prior surgery; Patient HX: Fall, trauma TECHNIQUE: Imaging protocol: Radiologic exam of the pelvis. Views: 1 or 2 view. COMPARISON: CT PELVIC WO 11/25/2021 09:28 FINDINGS: Bones/joints: Acute appearing proximal left femoral fracture is not well seen. Please see femoral films. Visualized portions of bilateral SVETLANA otherwise intact. Soft tissues: Soft tissue swelling surrounding the fracture site. IMPRESSION: Acute appearing proximal left femoral fracture is not well seen. Please see femoral films. Visualized portions of bilateral SVETLANA otherwise intact. Dictated and Authenticated by: Corrine Ortiz MD. Ordering:GINGER Foote MD
--- NOTE | 2022-05-13 19:41 | DI.VRAD_ITS ---
PROCEDURE INFORMATION: Exam: CT Left Lower Extremity Without Contrast Exam date and time: 05/13/2022 19:28 Age: 71 years old Clinical indication: Pain and injury or trauma; Blunt trauma; Hip and thigh or upper leg; Left; Prior surgery; Surgery date: 1-6 months; Patient HX: Fall, trauma; L hip SX 03/22/22 TECHNIQUE: Imaging protocol: CT of the Left lower extremity without contrast was performed. COMPARISON: CR XR FEMUR LT 05/13/2022 18:59 FINDINGS: Bones/joints: Acute fracture of the proximal left femoral diaphysis. This extends across the distal portion of the left SVETLANA femoral hardware component. There is 1 shaft with distal anterior and moderate lateral angulation. Over-ride by about 6 cm. The intertrochanteric femur appears intact. Upper portion of the left SVETLANA appears intact. No malalignment proximally. Soft tissues: Benign-appearing left gluteal lipoma. Swelling about the acute left femoral fracture with a hematoma posterior to the fracture, about 4 x 4 x 2 cm, challenging to measure accurately given the surrounding artifact. Vasculature: Atherosclerosis. Chronic appearing left femoral arterial graft. IMPRESSION: 1. Acute fracture of the proximal left femoral diaphysis involving the distal left SVETLANA hardware as above. 2. Additional findings as described. Dictated and Authenticated by: Corrine Ortiz MD. Ordering:GINGER Foote MD
[2022-05-13 20:57] LABS: Source Nasal/Nares
[2022-05-13 21:33] LABS: COVID-19 PCR Negative (Negative)
--- NOTE | 2022-05-13 22:45 | RT.EKG_ITS ---
APPROVED REPORT Exam: Resting ECG Reason for Exam: OR Patient Location: E HR:67 bpm ECG Measurements Heart Rate 67 AXIS ME 170 P 55 QRSd 98 QRS 33 QT 401 T 61 QTc 425 Conclusion Sinus rhythm...normal P axis, V-rate 60- 99
[2022-05-13] MEDS: HYDROcodone 5/Acetaminophen 325 TAB PO (23:04)
[2022-05-13] MEDS: Cyclobenzaprine 10 MG TAB PO (23:18)
--- NOTE | 2022-05-13 23:26 | HPE_ITS ---
Date of service: 05/13/22 Time of Service: 23:26 Assessment and Plan Assessment and plan (1) Fracture, femur closed, shaft: Start date: 05/13/22 Status: Acute Assessment and plan: This is a 71-year-old lady here status post fall with fracture of left femur st atus post left SVETLANA recently. She is wearing a prosthesis with a left BKA and loss of balance walking with a shopping cart. She has been accepted to [facility] for surgery pending bed availability. She is a full code. Qualifiers: Encounter type: sequela Fracture morphology: other fracture Laterality: left Qualified Code(s): S72.392S - Other fracture of shaft of left femur, sequela (2) CAD (coronary artery disease): Status: Chronic Assessment and plan: Stable without evidence of acute ischemia with patient having mechanical fall and no symptoms prior to fall. Continue outpatient medical therapy and monitor. Qualifiers: Associated angina: without angina Coronary Disease-Associated Artery/Lesion type: [place] artery [place] vs. transplanted heart: [place] heart Qualified Code(s): I25.10 - Atherosclerotic heart disease of [place] coronary artery without angina pectoris (3) Hypertension: Status: Chronic Assessment and plan: Continue outpatient medical therapy monitoring while hospitalized. Qualifiers: Hypertension type: primary hypertension Qualified Code(s): I10 - Essential (primary) hypertension (4) Diabetes mellitus: Status: Chronic Assessment and plan: Before meals and at bedtime glucometer measurements with short acting insulin coverage while hospitalized. Watch for hypoglycemia. She will be n.p.o. before any surgical procedure with every 6 hour coverage at that time. 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 She will be transferred to [facility] once a bed is available, see summary of ED PCP below. Summary of ED PCP report: Patient presenting to the emergency department via EMS for chief complaint of mechanical fall with injury to left hip.? Patient reports severe pain and discomfort to left hip and pelvis with muscular spasms to the thigh.? 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 Physical exam shows severe tenderness with any movement of the left lower extremity along with tenderness to palpation of the lateral hip, pelvis, and femur.? We will plan on performing radiological imaging.? Will treat patient's pain pending result Review of radiological imaging shows a significant fracture just below the femur hardware.? Did call and speak with orthopedic surgeon whom stated that unfortunately we do not have the needed hardware for repair of patient's injury which is complicated by the recent hip replacement.? We will reach out to [facility] given that they had just performed the replacement less than 8 weeks ago. Spoke with Dr. Barahona at [facility].? He stated that they would accept patient for surgical repair but at this time they have no orthopedic beds available.? He requested to have patient admitted here to our medicine team for pain control pending arrival and bed availability at this facility.? Patient to be n.p.o. after midnight.? Patient is in agreement this.? Called and spoke with hospitalist who agreed to have patient admitted.? I also did page anesthesia to see if they would be able to perform block due to patient needing multiple doses of IV push hydromorphone to control pain. EKG was performed and patient is in sinus rhythm with a rate of 67.? Please see physician interpretation for full interpretation of EKG.? No acute STEMI was noted. Review of Systems Narrative: 13 point review of systems otherwise unrevealing or stable. Patient is grunting and pain at the time of my exam. PFSH All Active Problems Fracture, femur closed, shaft (Acute) Fatigue (Acute) Chest pain (Acute) Tendonitis of both rotator cuffs (Acute) Steroid injection: 02/20/22; 11/16/2021 Contusion (Acute) Fall (Acute) Pleuritic chest pain (Acute) Ear canal blister (Acute) Osteoarthritis of right knee (Acute) Most recent Synvisc injections: 04/10/2022; 09/26/2021 She has been provided with Synvisc injections for many years with Dr. Dr rao. History of total right hip replacement (Acute 08/03/20) Peripheral vascular disease (Chronic) S/P right SFA antioplasty an sstenting, 2003. Left DVA to [place] popliteal bypass with [place], 2003. CAD (coronary artery disease) (Chronic) S/P stent 2004 Hypertension (Chronic) Hyperlipidemia (Chronic) Atherosclerosis of [place] coronary artery (Acute) Stent RCA 2007 B12 deficiency (Acute 04/08/15) Carpal tunnel syndrome (Acute 05/16/09) Cataracts, both eyes (Acute) 11/11/15 OPTICAL EXPRESSIONS; EARLY CATARACTS Diabetes mellitus (Chronic 02/18/13) Essential hypertension (Acute 08/18/13) History of tobacco use (Acute) Hyperlipidemia (Acute 01/14/14) ALEX (obstructive sleep apnea) (Acute 03/11/18) Palpitations (Acute 11/06/17) Peripheral vascular disease (Acute 02/18/13) Bypass Left Stent Right 2005 left BKA 08/28 Polyp of colon (Acute 09/15/09) 09/25 COLONOSCOPY: ONE TUBULAR ADENOMA AND FOUR HYPERPLASTIC POLYPS. 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 Primary osteoarthritis of right knee (Chronic) RLS (restless legs syndrome) (Chronic) Osteoarthritis of right hip (Chronic) Injection under fluoroscopy: 10/01/2019 Hyperkalemia (Acute) Thrombocytosis (Acute) Atypical chest pain (Acute) Hip pain, right (Acute) Medical History Diabetes mellitus, type II diabetes with peripheral vascular disease Hypertension Surgical History Angioplasty L leg 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 Sister Skin cancer Brother No problems noted. Son Alcohol abuse Depression Maternal Grandfather Stomach cancer Paternal Grandfather No problems noted. Maternal Grandmother No problems noted. Paternal Grandmother No problems noted. Daughter Depression Social History Smoking/Tobacco Use Status: Former Tobacco Use tobacco type: cigarettes Tobacco: How many years used: 37 Second Hand Exposure: Yes Smoking risk assessment performed?: Yes Alcohol Intake: current Alcohol Intake frequency: a few times a month Alcohol type: beer and hard liquor Drug use: Never Substance use type: does not use Caregiver/Support person: No Household members: none Housing: house Do you need help understanding health information?: Rarely current occupation: [employer] Pets and animals: Yes Pets and animals: cat(s) Sexually active: No Do you think of yourself as: straight/heterosexual Current gender identity: female What is your relationship status?: How often do you talk on the phone with friends or family?: three or more times per week How often do you get together with friends or relatives?: decline to answer How often do you attend yazidism or amish services?: 1-3 times per year Do you belong to any clubs or organized social groups?: no Panel score (0-1 are the most socially isolated patients): 2 What type of physical activity do you participate in: none Carmelina/Christian: Pentecostalism Special carmelina needs: No Seatbelt use: always Helmet use: Yes Helmet use: always Drive intox 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 buggy driver: No Do you feel safe at home: Yes Do you feel safe in your relationship?: Yes Would you like helpful sources: No Meds Allergies and Home Medications Allergies Allergy/AdvReac Type Severity Reaction Status Date / Time clopidogrel Allergy Skin Rash Verified 05/13/22 17:48 oxybutynin AdvReac Intermediate Verified 05/13/22 17:48 propoxyphene AdvReac Nausea Verified 05/13/22 17:48 Home Medications Medication Instructions Recorded Confirmed Type aspirin 325 mg tablet 325 mg PO DAILY 11/19/12 05/13/22 History magnesium 250 mg tablet 500 mg PO HS 04/17/19 05/13/22 History blood-glucose meter (Accu-Chek #1 ea 03/17/20 05/13/22 Rx Guide Glucose Meter) acetaminophen 500 mg tablet 500 mg PO Q6H PRN pain #60 tabs 08/03/20 05/13/22 Rx blood sugar diagnostic (Accu-Chek #300 strips 12/06/20 05/13/22 Rx Guide test strips) insulin syringe-needle U-100 1 mL #180 ea 12/06/20 05/13/22 Rx 31 gauge x 5/16 (BD Insulin Syringe Ultra-Fine) lancets #300 ea 12/06/20 05/13/22 Rx insulin NPH isoph U-100 human 100 See Rx Instructions subcut 03/03/21 05/13/22 Rx unit/mL subcutaneous suspension .COMPLEX #10 mL (Novolin N NPH U-100 Insulin isophane) metformin 500 mg tablet 500 mg PO BID #180 tabs 08/29/21 05/13/22 Rx atorvastatin 40 mg tablet 40 mg PO DAILY #90 tab-caps 10/12/21 05/13/22 Rx spironolactone 25 mg tablet 25 mg PO DAILY #90 tabs 11/02/21 05/13/22 Rx (Aldactone) cyclobenzaprine 5 mg tablet 5 mg PO TID PRN muscle spasm and 11/23/21 05/13/22 Rx pain #30 tabs hydroxyurea 500 mg capsule 500 mg PO DAILY #90 caps 01/09/22 05/13/22 Rx chlorthalidone 50 mg tablet 100 mg PO DAILY #180 tabs 04/03/22 05/13/22 Rx losartan 100 mg tablet 100 mg PO DAILY #90 tabs 04/03/22 05/13/22 Rx amlodipine 10 mg tablet 10 mg PO DAILY #90 tabs 04/05/22 05/13/22 Rx ropinirole 8 mg tablet,extended 8 mg PO DAILY #30 tabs 04/05/22 05/13/22 Rx release 24 hr duloxetine 30 mg capsule,delayed 60 mg PO DAILY #90 caps 04/10/22 05/13/22 Rx release metoprolol succinate 25 mg 25 mg PO DAILY #30 tabs 04/10/22 05/13/22 Rx tablet,extended release 24 hr Exam Narrative Exam Narrative: General: Patient appears older than stated age, moderately obese lying in bed with her head at a 45 degree angle and uncomfortable with any movement of her left lower extremity. She is alert and oriented x3. HEENT: Normocephalic, eyes with pupils equal and reactive to light symmetrically, extraocular movement intact and sclera anicteric. Neck: Supple without JVD. Lungs: Clear to auscultation and percussion. Heart: Regular rate and rhythm with no murmurs or gallops appreciated. Breast: Exam deferred. Abdomen: Obese contour, soft and nontender to palpation with no palpable hepatosplenomegaly. Genitalia/rectal: Exam deferred. Extremity: Left BKA stump clean with patient not moving left hip or lower extremity secondary to pain with no obvious bruising, well-healed surgical scar left lateral hip from recent left SVETLANA. Peripheral pulses decreased with fair capillary refill over lower extremities, no cyanosis or clubbing. No grossly pitting edema. Skin: Normal color, warm and dry. Neuro: Cranial nerves II through XII grossly intact, no focalizing motor deficits. Psych: Flat affect with depressed mood with patient in pain. No abnormal thought processes. Remote and recent memory intact. Results Labs Result diagrams: 05/13/22 23:27 05/13/22 23:27 Labs: Laboratory Results - last 24 hr 05/13/22 20:53 COVID-19 Source Nasal/Nares SARS-CoV-2 (PCR) Negative Last Vital Signs Temp 37.1 C 05/13/22 17:41 Pulse 67 05/13/22 20:26 Resp 17 05/13/22 17:41 BP 139/85 05/13/22 20:26 Pulse Ox 92 05/13/22 22:40 PAWSS Have you Been Recently Intoxicated or Drunk Within the Last 30 days?: No Have you Ever Experienced Previous Episodes of Alcohol Withdrawal?: No Have you ever Experienced Withdrawal Seizures?: No Have you ever Experienced Delirium Tremens(DT)s?: No Have you ever undergone Alcohol Rehabilitation Treatment (i.e, inpt ot outpatient treatment programs)?: No Have you ever Experienced Blackouts?: No Have you ever Combined Alcohol with other Downers within the last 90 days?: No Have you ever Combined Alcohol with any other Substance of Abuse during the last 90 days?: No Result: 0
[2022-05-13 23:36] LABS: Abs Immature Grans 0.09 10^3/uL (0.0-0.06); Absolute Basophil Count 0.04 10^3/uL (0.0-0.2); Absolute Eosinophil Count 0.02 10^3/uL (0.0-0.7); Absolute Monocyte Count 1.01 10^3/uL (0.1-0.8); Basophils % 0.3; Eosinophils % 0.2; HCT 31.4 % (36.0-46.0); HGB 10.2 g/dL (11.2-15.7); Immature Grans % 0.8; Lymphocytes % 8.4; MCH 35.2 pg (27.0-33.0); MCHC 32.5 % (32.0-36.0); MCV 108 fL (80-95); MPV 9.8 fL (8.0-11.0); Monocytes % 8.5; Neutrophils % 81.8; Platelet Count 389 10^3/uL (130-400); RDW 15.2 % (11.7-14.6); RDW-SD 60.3 fL; WBC 11.93 10^3/uL (4.4-10.8)
[2022-05-13 23:53] LABS: ALT 22 U/L (14-59); AST 14 U/L (15-37); Albumin 3.7 g/dL (3.4-5.0); Alkaline Phosphatase 69 U/L (46-116); Anion Gap 8.1 mmol/L (3-11); BUN 30 mg/dL (7-18); Bilirubin, Total 0.3 mg/dL (0.2-1.0); CO2 26.9 mmol/L (21.0-32.0); CREATININE 1.1 mg/dL (0.55-1.02); Chloride 105 mmol/L (98-107); Estimated GFR 48.96 (mL/min/1.73m2); Glucose 189 mg/dL (74-106); Potassium 4.3 mmol/L (3.5-5.1); Sodium 140 mmol/L (136-145); Total Protein 7.6 g/dL (6.4-8.2)
[2022-05-14] VITALS (19 sets, daily range): BP systolic 148–193; BP diastolic 50–77; PULSE 67–74; RESP 11–23; TEMP 36.4–36.8; O2SAT 89–97
[2022-05-14] LABS: Absolute Neutrophil Count 9.76 10^3/uL (1.2-6.7)
--- NOTE | 2022-05-14 | DI.RAD_ITS ---
Exam(s) XR FEMUR LT EXAM: XR FEMUR LT CLINICAL HISTORY: fracture. TECHNIQUE: 2D digital imaging was performed of the left femur. Four images were obtained. AP and lat eral views were obtained. COMPARISON: CR,XR XR FEMUR LT from 05/13/2022 FINDINGS: BONES: There is an acute oblique fracture of the proximal diaphysis of the left femur. The fracture involves the distal aspect of the femoral prosthesis. The distal fracture is angulated and displaced . The apex of the fracture is directed laterally. Patient has a below the knee amputation. No bony destructive lesion is seen. There is a left total hip replacement. SOFT TISSUE: Atherosclerosis is present. IMPRESSION: Acute fracture involving the proximal left femoral diaphysis as described. DATA REPOSITORY: RADIATION DOSE DELIVERED:
[2022-05-14 00:03] LABS: Diff Comment RBC Morph Reviewed
[2022-05-14 00:04] LABS: Macrocytosis 2+
--- NOTE | 2022-05-14 00:33 | W.ANESNERVE ---
Nerve Block Single Injection Procedure Date and Time Date Performed: 05/14/22 Procedure Start: 11:55 Location Where Procedure Performed Procedure Location: Emergency Department Reason Performed: Acute Pain Management Pain Diagnosis: Hip Pain Requesting Provider: Qamar Bowden Timeout Performed Timeout Performed: Yes Monitoring Used ECG, Blood Pressure and SpO2 Sterility Sterility: Hand Hygiene, Surgical Cap, Surgical Mask, Sterile Gloves, Sterile Drape/Sheet, Eye Protection and Chlorhexidine Sedation Given During Procedure Sedation Given (Indicate Dose Given): No Sedation given Patient Mental Status Patient Mental Status: Awake Nerve Block 1st Nerve Block: Laterality: Left Block Type: CLEOPATRA Needle / Catheter Used: 100mm SonoPlex II Local Anesthetic Bolus (Indicate Dose Given): Lidocaine used for local infiltration of skin, Injected in 3-5ml increments after negative blood aspiration, Bupivacaine 0.5% Dose:: 10cc and Exparel Dose:: 10cc Additives (Indicate Dose Given): None Ultrasound: Not Used Nerve Stimulator: Not Used Paresthesia: None Post Procedure Pain score (0-10): 4 Procedure Tolerated: No Complications and Patient tolerated well Procedure Outcome: Successful Performed By: Maury Shirley
--- NOTE | 2022-05-14 00:40 | NUR.NOTE ---
Nursing Note: Anesthesia here for block to control pain. Consent obtained. Pt tolerated procedure with out difficulty and reports improvement in pain.
[2022-05-14] MEDS: Normal Saline 1,000 ML 80 ML IV ×2 (01:41→13:42)
[2022-05-14] MEDS: Insulin Aspart 300 UNITS/3 ML PEN SC ×3 (03:27→13:51)
[2022-05-14] MEDS: HYDROmorphone 2 MG/ML SYR 1 MG IVP ×3 (06:42→14:54)
[2022-05-14] MEDS: DULoxetine 30 MG CAP 60 MG PO (07:57)
[2022-05-14] MEDS: Acetaminophen 325 MG TAB PO ×2 (07:57→13:38)
[2022-05-14] MEDS: Atorvastatin 40 MG TAB PO (07:57)
[2022-05-14] MEDS: Cyclobenzaprine 10 MG TAB 5 MG PO (07:57)
[2022-05-14] MEDS: Normal Saline Flush 10 ML SYR IVP (09:33)
--- NOTE | 2022-05-14 11:45 | W.DIABETESNO ---
Date of service: 05/14/22 Time of Service: 11:45 Diabetes Note Reason for Visit: Diabetes consult NOTE: Consult for diabetes education noted. Ms. Rojo is currently NPO and is also awaiting transfer. Will hold off on diabetes education at this time. Thank you for the consult. Time Spent in Nutritional Counseling and Treatment: 0
[2022-05-14] MEDS: rOPINIRole 1 MG TAB 2.5 MG PO (13:38)
--- NOTE | 2022-05-14 14:24 | NUR.NOTE ---
Called and gave report to ZHENG Yung, awaiting transportation. Nursing Note:
== END 2022-05-14 14:53 | disposition short-term general hospital (02) | DRG 536 ==
LOC: ER 05-14 00:36 → MS 05-14 01:04
PROVIDERS: Admitting Provider Family Medicine; Emergency Provider Nurse Practitioner Family; PCP Family Medicine; Visit Provider Family Medicine
DX: S72.002A Fracture of unspecified part of neck of left femur, initial encounter for closed fracture (principal); M97.02XA Periprosthetic fracture around internal prosthetic left hip joint, initial encounter; E11.51 Type 2 diabetes mellitus with diabetic peripheral angiopathy without gangrene; I25.10 Atherosclerotic heart disease of native coronary artery without angina pectoris; W19.XXXA Unspecified fall, initial encounter; Z87.891 Personal history of nicotine dependence; M17.11 Unilateral primary osteoarthritis, right knee; Z95.5 Presence of coronary angioplasty implant and graft; I10 Essential (primary) hypertension; E78.5 Hyperlipidemia, unspecified; E53.8 Deficiency of other specified B group vitamins; G47.33 Obstructive sleep apnea (adult) (pediatric); G25.81 Restless legs syndrome; Z89.512 Acquired absence of left leg below knee; Z79.4 Long term (current) use of insulin
CPT/HCPCS: 73552; 80053; 87635; 93005; 96375; 96376; 99284; 99285; 72170; 73700; 85025; 93010; 99223; J1170

== ENCOUNTER → 2022-06-08 08:48 | Outpatient (BNVA) | payer MEDICARE, BC, SELFPAY | PROVIDERS: PCP Family Medicine; Referring Provider Family Medicine; Visit Provider Student in an Organized Health Care Education/Training Program | DX: M75.81 Other shoulder lesions, right shoulder (principal); M75.82 Other shoulder lesions, left shoulder | CPT/HCPCS: 20610; J1040 ==

== ENCOUNTER → 2022-07-02 01:59 | Outpatient (CLI) | payer MEDICARE, BC, SELFPAY ==
--- NOTE | 2022-07-02 06:45 | DI.MRI_ITS ---
Exam(s) MR UPPER JOINT LT WO EXAM: MR UPPER JOINT LT WO CLINICAL HISTORY: pain M75.102 ROTATOR CUFF TEAR LEFT SHOULDER. TECHNIQUE: Multiplanar multisequence MRI was performed. COMPARISON: CR XR SHOULDER LT COMPLETE 2+V from 11/16/2021 FINDINGS: BONES: There is no fracture or contusion pattern. JOINTS: There are moderate degenerative changes seen at the acromioclavicular joint. Mild degenerati ve changes are seen at the glenohumeral joint. There is superior subluxation of the humeral head con sistent with a rotator cuff tear. Please see below. TENDONS: Supraspinatus: There is a complete tear of the supraspinatus tendon with retraction to the glenohumer al joint. Infraspinatus: There is a full-thickness tear of the infraspinatus tendon with retraction to the leve l of the glenohumeral joint. Subscapularis: There is tendinosis and a partial intrasubstance tear of the subscapularis tendon. Teres Minor: Unremarkable. Biceps and [place]: There is tendinosis of the long head of the biceps. MUSCLES: Moderately severe fatty atrophy of the infraspinatus and supraspinatus muscle is noted. The re is mild fatty atrophy of the teres minor. There is mild fatty atrophy of the subscapularis muscle . GLENOID LABRUM: Unremarkable on this noncontrast examination. SOFT TISSUES: Unremarkable. LIGAMENTS: Unremarkable. OTHER: There is fluid seen in the subacromial subdeltoid bursa consistent with the full-thickness rot ator cuff tear. IMPRESSION: 1. Complete tear with retraction of the supraspinatus tendon. Full-thickness tear with retraction of the infraspinatus tendon. 2. Tendinosis and intrasubstance tear of the subscapularis tendon. Tendinosis of the long head of th e biceps. 3. Fatty atrophy involving the rotator cuff muscles particularly the infraspinatus and supraspinatus muscles. 4. Degenerative changes of both the acromioclavicular and glenohumeral joints. DATA REPOSITORY:
== END ==
PROVIDERS: PCP Family Medicine; Visit Provider Student in an Organized Health Care Education/Training Program
DX: M75.102 Unspecified rotator cuff tear or rupture of left shoulder, not specified as traumatic (principal); M19.012 Primary osteoarthritis, left shoulder
CPT/HCPCS: 73221

== ENCOUNTER 2022-07-16 14:58 | Outpatient (CLI) | payer MEDICARE, BC, SELFPAY ==
--- NOTE | 2022-07-16 14:15 | DI.RAD_ITS ---
Exam(s) XR FEMUR LT EXAM: XR FEMUR LT INDICATION: f/u L femur periprosthetic fracture. COMPARISON: CR XR FEMUR LT from 05/14/2022 TECHNIQUE: 2D digital imaging was performed. AP lateral views. FINDINGS: Lateral screw and plate fixation has been placed from the proximal through distal femur for fracture fixation. The fracture alignment is anatomic and there has been some interval healing at the fractur e site. There is a total hip prosthesis which is unremarkable. DATA REPOSITORY: RADIATION DOSE DELIVERED:
== END 2022-07-16 14:59 | disposition home or self-care (01) ==
LOC: DIORS 14:59
PROVIDERS: PCP Family Medicine; Referring Provider Family Medicine; Visit Provider Student in an Organized Health Care Education/Training Program
DX: S72.392A Other fracture of shaft of left femur, initial encounter for closed fracture (principal); X58.XXXA Exposure to other specified factors, initial encounter
CPT/HCPCS: 73552; 99213

== ENCOUNTER → 2022-08-07 10:08 | Outpatient (BNVA) | payer MEDICARE, BC, SELFPAY | PROVIDERS: PCP Family Medicine; Referring Provider Family Medicine; Visit Provider Student in an Organized Health Care Education/Training Program | DX: M75.101 Unspecified rotator cuff tear or rupture of right shoulder, not specified as traumatic (principal); M75.102 Unspecified rotator cuff tear or rupture of left shoulder, not specified as traumatic; M12.811 Other specific arthropathies, not elsewhere classified, right shoulder; M12.812 Other specific arthropathies, not elsewhere classified, left shoulder; W19.XXXA Unspecified fall, initial encounter | CPT/HCPCS: 99214 ==

== ENCOUNTER 2022-08-13 15:12 | Outpatient (CLI) | payer MEDICARE, BC, SELFPAY ==
--- NOTE | 2022-08-13 15:00 | DI.RAD_ITS ---
Exam(s) XR FEMUR LT EXAM: XR FEMUR LT CLINICAL HISTORY: f/u L femur ORIF. TECHNIQUE: 2D digital imaging was performed. AP and lateral views. COMPARISON: 16 July 2022 FINDINGS: There has been no change in fracture or hardware alignment. Continued callus formation. No new find ings DATA REPOSITORY: RADIATION DOSE DELIVERED:
== END 2022-08-13 15:13 | disposition home or self-care (01) ==
LOC: DIORS 15:12
PROVIDERS: PCP Family Medicine; Referring Provider Family Medicine; Visit Provider Student in an Organized Health Care Education/Training Program
DX: S72.30 Unspecified fracture of shaft of femur (principal); M79.605 Pain in left leg; X58.XXXD Exposure to other specified factors, subsequent encounter
CPT/HCPCS: 73552

== ENCOUNTER → 2022-08-30 02:09 | Outpatient (CLI) | payer MEDICARE, BC, SELFPAY ==
--- NOTE | 2022-08-30 13:19 | DI.CT_ITS ---
Exam(s) CT UPPER EXTREMITY LT WO EXAM: CT UPPER EXTREMITY LT WO CLINICAL HISTORY: Surgery planning,bilat shoulder arthropathy,rotator cuff tear. TECHNIQUE: Imaging Protocol: Axial computed tomography images with coronal and sagittal reformatted images were created and reviewed. COMPARISON: MR MR UPPER JOINT LT WO from 07/02/2022 FINDINGS: Bones: The osseous structures and articular surfaces are intact. Bony alignment is satisfactory. N o cellulitic or osteomyelitic changes are identified. There are mild degenerative changes seen at th e acromioclavicular joint. There also degenerative changes seen at the glenohumeral joint with joint space narrowing and periarticular spurring. There is superior subluxation of the humeral head sugge sting rotator cuff tear. No lytic or sclerotic lesions are identified. Soft Tissues: There is a 0.9 x 0.6 cm nodule in the left lower lobe it is adjacent to the minor fissu re and has a somewhat of a triangular configuration. There is a 3 mm nodule in the subpleural region of the left lower lobe. IMPRESSION: 1. Osteoarthritis of the left shoulder. 2. Left lower lobe pulmonary nodules. A noncontrast CT scan of the chest is recommended for further evaluation. Unexpected findings RADIATION DOSE DELIVERED: 906.97mGy.cm Total DLP 906.97mGy.cm Total DLP DATA REPOSITORY: All CT scans at this facility are submitted to the National Radiology Data Registry (NRDR) Dose Index Registry (DIR) with the [employer] (A[employer]). RADIATION OPTIMIZATION: All CT scans at this facility use at least one of these dose optimization te chniques: automated exposure control; mA and/or kV adjustment per patient size (includes targeted exa ms where dose is matched to clinical indication); or iterative reconstruction.
== END ==
PROVIDERS: PCP Family Medicine; Visit Provider Student in an Organized Health Care Education/Training Program
DX: M12.811 Other specific arthropathies, not elsewhere classified, right shoulder (principal); M12.812 Other specific arthropathies, not elsewhere classified, left shoulder; M75.101 Unspecified rotator cuff tear or rupture of right shoulder, not specified as traumatic; M75.102 Unspecified rotator cuff tear or rupture of left shoulder, not specified as traumatic; M19.012 Primary osteoarthritis, left shoulder; R91.1 Solitary pulmonary nodule
CPT/HCPCS: 73200

== ENCOUNTER 2022-09-03 02:49 | Outpatient (CLI) | payer MEDICARE, BC, SELFPAY ==
[2022-09-03 16:47] LABS: Abs Immature Grans 0.06 10^3/uL (0.0-0.06); Absolute Basophil Count 0.05 10^3/uL (0.0-0.2); Absolute Eosinophil Count 0.02 10^3/uL (0.0-0.7); Absolute Monocyte Count 0.87 10^3/uL (0.1-0.8); Absolute Neutrophil Count 6.67 10^3/uL (1.2-6.7); Basophils % 0.5; Eosinophils % 0.2; HCT 34.3 % (36.0-46.0); HGB 11.1 g/dL (11.2-15.7); Immature Grans % 0.6; Lymphocytes % 21.5; MCHC 32.4 % (32.0-36.0); MCV 108 fL (80-95); Monocytes % 8.9; Neutrophils % 68.3; Platelet Count 366 10^3/uL (130-400); RBC 3.17 10^6/uL (3.93-5.22); RDW 14.4 % (11.7-14.6); RDW-SD 56.6 fL; WBC 9.77 10^3/uL (4.4-10.8)
[2022-09-03 17:13] LABS: ALT 17 U/L (14-59); AST 10 U/L (15-37); Albumin 4.2 g/dL (3.4-5.0); Alkaline Phosphatase 102 U/L (46-116); Anion Gap 12.9 mmol/L (3-11); BUN 51 mg/dL (7-18); Bilirubin, Total 0.4 mg/dL (0.2-1.0); CO2 22.1 mmol/L (21.0-32.0); CREATININE 1.4 mg/dL (0.55-1.02); Calcium 9.8 mg/dL (8.5-10.1); Chloride 101 mmol/L (98-107); Estimated GFR 40.22 (mL/min/1.73m2); Glucose 287 mg/dL (74-106); Sodium 136 mmol/L (136-145); Total Protein 8.1 g/dL (6.4-8.2)
== END 2022-09-03 02:50 | disposition home or self-care (01) ==
LOC: LBO 02:49
PROVIDERS: PCP Family Medicine; Visit Provider Nurse Practitioner Adult Health
DX: D47.1 Chronic myeloproliferative disease (principal)
CPT/HCPCS: 36415; 80053; 85025

== ENCOUNTER → 2022-09-04 13:24 | Outpatient (BNVA) | payer MEDICARE, BC, SELFPAY | PROVIDERS: PCP Family Medicine; Referring Provider Family Medicine; Visit Provider Student in an Organized Health Care Education/Training Program | DX: M75.101 Unspecified rotator cuff tear or rupture of right shoulder, not specified as traumatic (principal); M75.102 Unspecified rotator cuff tear or rupture of left shoulder, not specified as traumatic; M12.811 Other specific arthropathies, not elsewhere classified, right shoulder; M12.812 Other specific arthropathies, not elsewhere classified, left shoulder; R91.1 Solitary pulmonary nodule; S72.392D Other fracture of shaft of left femur, subsequent encounter for closed fracture with routine healing; X58.XXXD Exposure to other specified factors, subsequent encounter | CPT/HCPCS: 99215 ==

== ENCOUNTER → 2022-09-11 12:31 | Outpatient (CLI) | payer MEDICARE, BC, SELFPAY ==
--- NOTE | 2022-09-11 11:15 | DI.US_ITS ---
Exam(s) US LOWER EXTREMITY VENOUS RT EXAM: US LOWER EXTREMITY VENOUS RT CLINICAL HISTORY: swelling for 2 months; some tenderness,m79.604 TECHNIQUE: Grayscale, color, and doppler imaging of the deep venous system of the right lower extrem ity was performed. COMPARISON: US POCUS EXAM from 05/13/2022 FINDINGS: There is no evidence of intraluminal thrombus and there is normal compression and augmentation demons trated within the common femoral vein, femoral vein, and popliteal vein. In the ipsilateral calf the interrogated veins also exhibit normal compression/ augmentation properti es. The ipsilateral saphenofemoral junction is patent. IMPRESSION: 1. No evidence of DVT in the right lower extremity. DATA REPOSITORY:
== END ==
PROVIDERS: PCP Family Medicine; Visit Provider Family Medicine
DX: M79.604 Pain in right leg (principal)
CPT/HCPCS: 93971

== ENCOUNTER 2022-09-13 11:14 | Outpatient (CLI) | payer MEDICARE, BC, SELFPAY ==
--- NOTE | 2022-09-13 11:20 | DI.RAD_ITS ---
Exam(s) XR FEMUR LT EXAM: XR FEMUR LT CLINICAL HISTORY: Femur fracture. TECHNIQUE: 2D digital imaging was performed. COMPARISON: CR XR FEMUR LT from 08/13/2022 FINDINGS: 3 views Left hip prosthesis and femoral side plate remain stable. No hardware fracture or loosening. Cercla ge wire remains intact. No loosening. No radiographic evidence of osteomyelitis. IMPRESSION: Stable satisfactory appearance. DATA REPOSITORY: RADIATION DOSE DELIVERED:
== END 2022-09-13 11:15 | disposition home or self-care (01) ==
LOC: DIORS 11:15
PROVIDERS: PCP Family Medicine; Referring Provider Family Medicine; Visit Provider Physician Assistant
DX: S72.392 Other fracture of shaft of left femur (principal); M79.605 Pain in left leg
CPT/HCPCS: 73552; 99214

== ENCOUNTER 2022-09-21 01:19 | Outpatient (CLI) | payer MEDICARE, BC, SELFPAY ==
--- NOTE | 2022-09-21 08:32 | DI.CT_ITS ---
Exam(s) CT CHEST WO EXAM: CT CHEST WO CLINICAL HISTORY: LLL NODULES, R91.1. TECHNIQUE: Imaging protocol: Axial computed tomography images were obtained and coronal and sagittal reformatted images were created and reviewed. COMPARISON: CT,NM,TMT NM MPI REST STRESS GRP from 04/17/[address] UPPER EXTREMITY LT WO from 08/30/2022 FINDINGS: Tracheobronchial tree: Patent where visualized. Mediastinum and Tonie: No dominant adenopathy or fluid collection. Pulmonary parenchyma: No consolidation suspicious mass. Somewhat decreased prominence of an area of nodularity at the left major fissure measuring 7 x 5 x 5 millimeters. No suspicious features. This appears grossly unchanged from attenuation correction CT performed with prior MPI. Few other tiny sc attered peripheral nodules are noted. Pleura: No effusion or pneumothorax. Heart: The heart is not dilated. Mild to moderate coronary artery calcifications are seen. Aorta: Thoracic aorta non-dilated. Moderate atherosclerotic calcification. Upper abdomen: Gallstone. Large quantity of stool noted in visualized portions of the colon. Lymph nodes: Within normal limits. Bones:Degenerative disc changes. No compression fractures. Tubes, Catheters, and Lines: IMPRESSION: left perifissural nodule may represent intrapulmonary lymph nodes. Appears stable when compared wit h February exam. No suspicious features. If the patient is at high risk for lung cancer follow-up low-dose screening chest CT could be perform ed in 1 year. RADIATION DOSE DELIVERED: 718.55mGy.cm Total DLP 718.55mGy.cm Total DLP DATA REPOSITORY: All CT scans at this facility are submitted to the National Radiology Data Registry (NRDR) Dose Index Registry (DIR) with the [employer] (ACR). RADIATION OPTIMIZATION: All CT scans at this facility use at least one of these dose optimization te chniques: automated exposure control; mA and/or kV adjustment per patient size (includes targeted exa ms where dose is matched to clinical indication); or iterative reconstruction.
== END 2022-09-21 01:39 ==
LOC: DI 01:19
PROVIDERS: PCP Family Medicine; Visit Provider Family Medicine
DX: R91.1 Solitary pulmonary nodule (principal)
CPT/HCPCS: 71250

== ENCOUNTER → 2022-10-24 14:16 | Outpatient (BNVA) | payer MEDICARE, BC, SELFPAY | PROVIDERS: PCP Family Medicine; Referring Provider Family Medicine; Visit Provider Student in an Organized Health Care Education/Training Program | DX: M75.102 Unspecified rotator cuff tear or rupture of left shoulder, not specified as traumatic (principal); M12.812 Other specific arthropathies, not elsewhere classified, left shoulder | CPT/HCPCS: 99214 ==

== ENCOUNTER 2022-10-30 10:23 | Outpatient (CLI) | payer MEDICARE, BC, SELFPAY ==
[2022-10-30 12:46] LABS: Anion Gap 6.7 mmol/L (3-11); BUN 50 mg/dL (7-18); CO2 29.3 mmol/L (21.0-32.0); CREATININE 1.5 mg/dL (0.55-1.02); Chloride 101 mmol/L (98-107); Estimated GFR 37.03 (mL/min/1.73m2); Glucose 172 mg/dL (74-106); Potassium 4.8 mmol/L (3.5-5.1); Sodium 137 mmol/L (136-145)
== END 2022-10-30 10:24 | disposition home or self-care (01) ==
LOC: LOS 10:23
PROVIDERS: PCP Family Medicine; Referring Provider Family Medicine; Visit Provider Family Medicine
DX: E87.1 Hypo-osmolality and hyponatremia (principal); I10 Essential (primary) hypertension; E11.9 Type 2 diabetes mellitus without complications
CPT/HCPCS: 36415; 80048

== ENCOUNTER 2022-11-09 11:01 | Outpatient (CLI) | payer MEDICARE, BC, SELFPAY ==
--- NOTE | 2022-11-09 10:45 | DI.RAD_ITS ---
Exam(s) XR FEMUR LT EXAM: XR FEMUR LT CLINICAL HISTORY: f/u left femur fx. TECHNIQUE: 2D digital imaging was performed. AP and lateral views. COMPARISON: September 06 FINDINGS: There has been no change in fracture or hardware alignment. There has been some interval healing at the fracture of the proximal femur compared with prior. No new abnormalities. DATA REPOSITORY: RADIATION DOSE DELIVERED:
== END 2022-11-09 11:02 | disposition home or self-care (01) ==
LOC: DIORS 11:02
PROVIDERS: PCP Family Medicine; Referring Provider Family Medicine; Visit Provider Student in an Organized Health Care Education/Training Program
DX: M12.811 Other specific arthropathies, not elsewhere classified, right shoulder; S72.392 Other fracture of shaft of left femur; M79.652 Pain in left thigh
CPT/HCPCS: 20610; 73552; 99213; J1040

== ENCOUNTER 2022-12-12 01:58 | Outpatient (CLI) | payer MEDICARE, BC, SELFPAY ==
[2022-12-12 11:36] LABS: Hemoglobin A1C 7.7 % (<5.7)
== END 2022-12-12 01:59 | disposition home or self-care (01) ==
LOC: LBO 01:58
PROVIDERS: PCP Family Medicine; Visit Provider Student in an Organized Health Care Education/Training Program
DX: E11.9 Type 2 diabetes mellitus without complications (principal)
CPT/HCPCS: 36415; 83036

== ENCOUNTER 2022-12-18 03:12 | Outpatient (CLI) | payer MEDICARE, BC, SELFPAY ==
[2022-12-18 16:59] LABS: Abs Immature Grans 0.06 10^3/uL (0.0-0.06); Absolute Basophil Count 0.04 10^3/uL (0.0-0.2); Absolute Eosinophil Count 0.03 10^3/uL (0.0-0.7); Absolute Lymphocyte Count 1.45 10^3/uL (1.2-3.4); Absolute Monocyte Count 0.75 10^3/uL (0.1-0.8); Absolute Neutrophil Count 6.81 10^3/uL (1.2-6.7); Basophils % 0.4; Eosinophils % 0.3; HCT 37.1 % (36.0-46.0); Immature Grans % 0.7; Lymphocytes % 15.9; MCH 36.5 pg (27.0-33.0); MCHC 32.3 % (32.0-36.0); MCV 113 fL (80-95); MPV 9.8 fL (8.0-11.0); Monocytes % 8.2; Neutrophils % 74.5; Platelet Count 427 10^3/uL (130-400); RBC 3.29 10^6/uL (3.93-5.22); RDW 14.2 % (11.7-14.6); RDW-SD 58.9 fL; WBC 9.14 10^3/uL (4.4-10.8)
[2022-12-18 17:52] LABS: Ferritin 82 ng/mL (8-252)
[2022-12-18 18:01] LABS: ALT 25 U/L (14-59); AST 13 U/L (15-37); Albumin 4.2 g/dL (3.4-5.0); Alkaline Phosphatase 78 U/L (46-116); BUN 46 mg/dL (7-18); Bilirubin, Total 0.4 mg/dL (0.2-1.0); CREATININE 1.5 mg/dL (0.55-1.02); Chloride 102 mmol/L (98-107); Estimated GFR 37.03 (mL/min/1.73m2); Glucose 98 mg/dL (74-106); Potassium 4.8 mmol/L (3.5-5.1); Sodium 143 mmol/L (136-145); Total Protein 7.4 g/dL (6.4-8.2)
[2022-12-18 19:25] LABS: Iron 106 ug/dL (50-170)
[2022-12-20 18:42] LABS: Fructosamine 344 mcmol/L (200 - 285)
== END 2022-12-18 03:13 | disposition home or self-care (01) ==
LOC: LBO 03:12
PROVIDERS: Nurse Practitioner Adult Health; PCP Family Medicine; Visit Provider Family Medicine
DX: D47.1 Chronic myeloproliferative disease (principal); E11.9 Type 2 diabetes mellitus without complications; Z79.4 Long term (current) use of insulin; I10 Essential (primary) hypertension
CPT/HCPCS: 36415; 80053; 82728; 82985; 83540; 85025

== ENCOUNTER 2023-01-18 01:34 | Outpatient (CLI) | payer MEDICARE, BC, SELFPAY ==
[2023-01-18 12:16] LABS: Absolute Basophil Count 0.05 10^3/uL (0.0-0.2); Absolute Eosinophil Count 0.03 10^3/uL (0.0-0.7); Absolute Lymphocyte Count 1.03 10^3/uL (1.2-3.4); Absolute Monocyte Count 0.63 10^3/uL (0.1-0.8); Absolute Neutrophil Count 6.21 10^3/uL (1.2-6.7); Basophils % 0.6; Eosinophils % 0.4; HCT 34.7 % (36.0-46.0); HGB 11.3 g/dL (11.2-15.7); Immature Grans % 1.2; Lymphocytes % 12.8; MCH 37.2 pg (27.0-33.0); MCHC 32.6 % (32.0-36.0); MCV 114 fL (80-95); MPV 9.5 fL (8.0-11.0); Monocytes % 7.8; Neutrophils % 77.2; Platelet Count 341 10^3/uL (130-400); RBC 3.04 10^6/uL (3.93-5.22); RDW 14.6 % (11.7-14.6); RDW-SD 61.5 fL; WBC 8.05 10^3/uL (4.4-10.8)
[2023-01-18 12:41] LABS: Hemoglobin A1C 7.1 % (<5.7)
[2023-01-18 12:46] LABS: ALT 28 U/L (14-59); AST 14 U/L (15-37); Albumin 3.7 g/dL (3.4-5.0); Alkaline Phosphatase 71 U/L (46-116); Anion Gap 9.3 mmol/L (3-11); BUN 40 mg/dL (7-18); Bilirubin, Total 0.5 mg/dL (0.2-1.0); CO2 26.7 mmol/L (21.0-32.0); CREATININE 1.4 mg/dL (0.55-1.02); Chloride 104 mmol/L (98-107); Estimated GFR 39.97 (mL/min/1.73m2); Glucose 209 mg/dL (74-106); Potassium 4.8 mmol/L (3.5-5.1); Sodium 140 mmol/L (136-145); Total Protein 7.6 g/dL (6.4-8.2)
== END 2023-01-18 01:35 | disposition home or self-care (01) ==
LOC: LBO 01:34
PROVIDERS: PCP Family Medicine; Visit Provider Orthopaedic Surgery Adult Reconstructive Orthopaedic Surgery
DX: E11.65 Type 2 diabetes mellitus with hyperglycemia (principal); M12.811 Other specific arthropathies, not elsewhere classified, right shoulder; Z01.818 Encounter for other preprocedural examination; Z01.812 Encounter for preprocedural laboratory examination; Z79.4 Long term (current) use of insulin
CPT/HCPCS: 36415; 80053; 83036; 85025

== ENCOUNTER → 2023-02-07 13:52 | Outpatient (BNVA) | payer MEDICARE, BC, SELFPAY | PROVIDERS: PCP Family Medicine; Referring Provider Family Medicine | DX: M75.101 Unspecified rotator cuff tear or rupture of right shoulder, not specified as traumatic (principal); M12.811 Other specific arthropathies, not elsewhere classified, right shoulder | CPT/HCPCS: 99213 ==

== ENCOUNTER 2023-03-13 02:40 | Outpatient (CLI) | payer MEDICARE, BC, SELFPAY ==
[2023-03-13 13:37] LABS: Abs Immature Grans 0.06 10^3/uL (0.0-0.06); Absolute Basophil Count 0.04 10^3/uL (0.0-0.2); Absolute Eosinophil Count 0.05 10^3/uL (0.0-0.7); Absolute Monocyte Count 0.66 10^3/uL (0.1-0.8); Absolute Neutrophil Count 5.92 10^3/uL (1.2-6.7); Basophils % 0.5; Eosinophils % 0.6; HCT 35.8 % (36.0-46.0); HGB 10.8 g/dL (11.2-15.7); Immature Grans % 0.8; Lymphocytes % 15.1; MCH 32.3 pg (27.0-33.0); MCHC 30.2 % (32.0-36.0); MCV 107 fL (80-95); MPV 9.6 fL (8.0-11.0); Monocytes % 8.3; Neutrophils % 74.7; Platelet Count 471 10^3/uL (130-400); RBC 3.34 10^6/uL (3.93-5.22); RDW 14.3 % (11.7-14.6); RDW-SD 56.5 fL; Reticulocyte 2.5 % (0.5-2.4); WBC 7.93 10^3/uL (4.4-10.8)
[2023-03-13 14:14] LABS: Iron 40 ug/dL (50-170); Total Iron Binding Capacity 348 ug/dL (250-450); Transferrin Sat 11 % (15-50)
[2023-03-13 15:10] LABS: ALT 19 U/L (14-59); AST 10 U/L (15-37); Albumin 4.1 g/dL (3.4-5.0); Alkaline Phosphatase 87 U/L (46-116); Anion Gap 10.6 mmol/L (3-11); BUN 32 mg/dL (7-18); Bilirubin, Total 0.3 mg/dL (0.2-1.0); CO2 28.4 mmol/L (21.0-32.0); CREATININE 1.1 mg/dL (0.55-1.02); Chloride 104 mmol/L (98-107); Estimated GFR 53.39 (mL/min/1.73m2); Ferritin 57 ng/mL (8-252); Glucose 140 mg/dL (74-106); Potassium 5.1 mmol/L (3.5-5.1); Sodium 143 mmol/L (136-145); Total Protein 7.7 g/dL (6.4-8.2)
== END 2023-03-13 02:41 | disposition home or self-care (01) ==
PROVIDERS: PCP Family Medicine; Visit Provider Nurse Practitioner Adult Health
DX: D47.1 Chronic myeloproliferative disease (principal)
CPT/HCPCS: 36415; 80053; 99213; 82728; 83540; 83550; 85025; 85045; J1030

== ENCOUNTER → 2023-06-03 14:02 | Outpatient (BNVA) | payer MEDICARE, BC, SELFPAY | PROVIDERS: PCP Family Medicine; Referring Provider Family Medicine ==

== ENCOUNTER → 2023-06-24 13:46 | Outpatient (BNVA) | payer MEDICARE, BC, SELFPAY | PROVIDERS: PCP Family Medicine; Referring Provider Family Medicine | DX: M17.11 Unilateral primary osteoarthritis, right knee (principal) | CPT/HCPCS: 20610; J7325 ==

== ENCOUNTER → 2023-07-01 09:31 | Outpatient (BNVA) | payer MEDICARE, BC, SELFPAY | PROVIDERS: PCP Family Medicine; Referring Provider Family Medicine; Visit Provider Surgery ==

== ENCOUNTER → 2023-07-01 16:45 | Outpatient (CLI) | payer MEDICARE, BC, SELFPAY ==
--- NOTE | 2023-07-01 10:13 | DI.US_ITS ---
Exam(s) US LOWER EXTREMITY VENOUS RT EXAM: US LOWER EXTREMITY VENOUS RT CLINICAL HISTORY: Swelling RLE and pain, EDEMA RT LOWER EXTREMITY, R60.0 LOCALIZED EDEMA TECHNIQUE: Right lower extremity venous ultrasound performed using grayscale, color-flow, and spectr al Doppler analysis. COMPARISON: US US LOWER EXTREMITY VENOUS RT from 09/11/2022 FINDINGS: The right common femoral, femoral and popliteal veins demonstrate normal compressibility, augmentatio n, and color Doppler. The posterior tibial veins are patent. The saphenofemoral junction is unremark able. There is no evidence of a Palmer cyst. The soft tissues are unremarkable. IMPRESSION: No evidence of a right lower extremity DVT. DATA REPOSITORY:
== END ==
PROVIDERS: PCP Family Medicine; Visit Provider Surgery
DX: R60.0 Localized edema (principal); I73.9 Peripheral vascular disease, unspecified; Z51.89 Encounter for other specified aftercare
CPT/HCPCS: 29580; 99214; 93971

== ENCOUNTER → 2023-07-08 10:56 | Outpatient (BNVA) | payer MEDICARE, BC, SELFPAY | PROVIDERS: PCP Family Medicine; Referring Provider Family Medicine; Visit Provider Surgery | DX: I73.9 Peripheral vascular disease, unspecified (principal); R60.0 Localized edema; Z51.89 Encounter for other specified aftercare | CPT/HCPCS: 99213 ==

== ENCOUNTER 2023-07-12 01:51 | Outpatient (CLI) | payer MEDICARE, BC, SELFPAY ==
[2023-07-12 12:13] LABS: Abs Immature Grans 0.05 10^3/uL (0.0-0.06); Absolute Basophil Count 0.05 10^3/uL (0.0-0.2); Absolute Eosinophil Count 0.05 10^3/uL (0.0-0.7); Absolute Lymphocyte Count 1.32 10^3/uL (1.2-3.4); Absolute Monocyte Count 0.59 10^3/uL (0.1-0.8); Absolute Neutrophil Count 5.23 10^3/uL (1.2-6.7); Basophils % 0.7; Eosinophils % 0.7; HCT 33.6 % (36.0-46.0); HGB 10.8 g/dL (11.2-15.7); Immature Grans % 0.7; Lymphocytes % 18.1; MCH 35.4 pg (27.0-33.0); MCHC 32.1 % (32.0-36.0); MPV 10.2 fL (8.0-11.0); Monocytes % 8.1; Neutrophils % 71.7; Platelet Count 370 10^3/uL (130-400); RBC 3.05 10^6/uL (3.93-5.22); RDW 16.3 % (11.7-14.6); RDW-SD 66.5 fL; Reticulocyte 2.6 % (0.5-2.4); WBC 7.29 10^3/uL (4.4-10.8)
[2023-07-12 12:19] LABS: MCV 110 fL (80-95)
[2023-07-12 12:30] LABS: Iron 75 ug/dL (50-170); Total Iron Binding Capacity 354 ug/dL (250-450); Transferrin Sat 21 % (15-50)
[2023-07-12 12:34] LABS: ALT 18 U/L (14-59); AST 12 U/L (15-37); Alkaline Phosphatase 64 U/L (46-116); Anion Gap 11.6 mmol/L (3-11); BUN 67 mg/dL (7-18); Bilirubin, Total 0.4 mg/dL (0.2-1.0); CO2 26.4 mmol/L (21.0-32.0); CREATININE 1.5 mg/dL (0.55-1.02); Calcium 10.7 mg/dL (8.5-10.1); Chloride 104 mmol/L (98-107); Ferritin 58 ng/mL (8-252); Glucose 120 mg/dL (74-106); Potassium 4.7 mmol/L (3.5-5.1); Sodium 142 mmol/L (136-145); Total Protein 7.8 g/dL (6.4-8.2)
== END 2023-07-12 01:52 | disposition home or self-care (01) ==
PROVIDERS: PCP Family Medicine; Visit Provider Nurse Practitioner Adult Health
DX: D47.1 Chronic myeloproliferative disease (principal)
CPT/HCPCS: 36415; 80053; 82728; 83540; 83550; 85025; 85045

== ENCOUNTER → 2023-07-15 13:05 | Outpatient (BNVA) | payer MEDICARE, BC, SELFPAY | PROVIDERS: PCP Family Medicine; Referring Provider Family Medicine; Visit Provider Surgery | DX: S81.801D Unspecified open wound, right lower leg, subsequent encounter (principal); X58.XXXD Exposure to other specified factors, subsequent encounter | CPT/HCPCS: 99213 ==

== ENCOUNTER 2023-08-22 04:56 | Outpatient (CLI) | payer MEDICARE, BC, SELFPAY ==
[2023-08-22 12:24] LABS: Abs Immature Grans 0.05 10^3/uL (0.0-0.06); Absolute Basophil Count 0.04 10^3/uL (0.0-0.2); Absolute Eosinophil Count 0.04 10^3/uL (0.0-0.7); Absolute Lymphocyte Count 1.05 10^3/uL (1.2-3.4); Absolute Monocyte Count 0.69 10^3/uL (0.1-0.8); Absolute Neutrophil Count 5.21 10^3/uL (1.2-6.7); Basophils % 0.6; Eosinophils % 0.6; HCT 34.8 % (36.0-46.0); HGB 11.1 g/dL (11.2-15.7); Immature Grans % 0.7; Lymphocytes % 14.8; MCH 36.3 pg (27.0-33.0); MCHC 31.9 % (32.0-36.0); MCV 114 fL (80-95); MPV 10.1 fL (8.0-11.0); Monocytes % 9.7; Neutrophils % 73.6; Platelet Count 332 10^3/uL (130-400); RBC 3.06 10^6/uL (3.93-5.22); RDW 14.1 % (11.7-14.6); RDW-SD 58.5 fL; Reticulocyte 2.2 % (0.5-2.4); WBC 7.08 10^3/uL (4.4-10.8)
[2023-08-22 12:38] LABS: Iron 70 ug/dL (50-170); Total Iron Binding Capacity 321 ug/dL (250-450); Transferrin Sat 22 % (15-50)
[2023-08-22 12:41] LABS: Hemoglobin A1C 7.1 % (<5.7)
[2023-08-22 12:43] LABS: ALT 25 U/L (14-59); AST 15 U/L (15-37); Albumin 3.6 g/dL (3.4-5.0); Alkaline Phosphatase 64 U/L (46-116); Anion Gap 9.3 mmol/L (3-11); BUN 44 mg/dL (7-18); Bilirubin, Total 0.4 mg/dL (0.2-1.0); CO2 29.7 mmol/L (21.0-32.0); CREATININE 1.4 mg/dL (0.55-1.02); Calcium 9.5 mg/dL (8.5-10.1); Chloride 103 mmol/L (98-107); Estimated GFR 39.97 (mL/min/1.73m2); Ferritin 35 ng/mL (8-252); Glucose 160 mg/dL (74-106); Potassium 4.5 mmol/L (3.5-5.1); Sodium 142 mmol/L (136-145); Total Protein 7.4 g/dL (6.4-8.2)
== END 2023-08-22 04:57 | disposition home or self-care (01) ==
LOC: LOS 04:56
PROVIDERS: Nurse Practitioner Adult Health; PCP Family Medicine; Visit Provider Family Medicine
DX: E11.51 Type 2 diabetes mellitus with diabetic peripheral angiopathy without gangrene (principal); D47.1 Chronic myeloproliferative disease
CPT/HCPCS: 80053; 82728; 83036; 83540; 83550; 85025; 85045

== ENCOUNTER → 2023-12-23 12:43 | Outpatient (BNVA) | payer MEDICARE, BC, SELFPAY | PROVIDERS: PCP Family Medicine; Referring Provider Family Medicine; Visit Provider Student in an Organized Health Care Education/Training Program | DX: M17.11 Unilateral primary osteoarthritis, right knee (principal) | CPT/HCPCS: 20610; J1040 ==

== ENCOUNTER → 2024-01-23 00:41 | Outpatient (CLI) | payer MEDICARE, BC, SELFPAY ==
--- NOTE | 2024-01-23 10:52 | DI.US_ITS ---
Exam(s) US RENAL EXAM: US RENAL CLINICAL HISTORY: left renal mass seen on CT angio, RENAL LESION, N28.9. TECHNIQUE: Pleitez scale, color and spectral Doppler were used. FINDINGS: Renal size in cm: Right: 10.8. Left: 11.1. Echogenicity: Normal. Hydronephrosis: No. Cyst or mass: There is a simple cyst in the superior pole of the left kidney measuring 2.0 x 2.1 x 2. 1 cm. This corresponds in location to the lesion seen on the CT scan from 01/15/2024. No solid renal masses are present. Nephrolithiasis: No. Other findings: None. Bladder:The urinary bladder is incompletely distended but grossly unremarkable. Ureteral jets: Right: Not visualized on this examination. Left: Not visualized on this examination. Prevoid vol:80 cc Postvoid vol:0 cc Renal color flow: Symmetric and within normal limits. IMPRESSION: There is a 2.1 cm simple cyst in the superior pole of the left kidney. This corresponds to the findi ng on the prior CT examination from 01/15/2024. No solid renal masses. DATA REPOSITORY:
== END ==
PROVIDERS: PCP Family Medicine; Visit Provider Family Medicine
DX: N20.0 Calculus of kidney (principal)
CPT/HCPCS: 76770

== ENCOUNTER 2024-03-11 13:04 | Outpatient (REF) | payer MEDICARE, BC, SELFPAY ==
[2024-03-11 12:34] LABS: COMMENT (LAB VIEW ONLY) 106.03 mg/dL; Microalb ug/mg Crea 69.8 ug/mg Cr
== END 2024-03-11 13:05 | disposition home or self-care (01) ==
LOC: LBN 13:04
PROVIDERS: PCP Family Medicine; Visit Provider Family Medicine
DX: E11.9 Type 2 diabetes mellitus without complications (principal)
CPT/HCPCS: 82043; 82570

== ENCOUNTER 2024-03-20 03:07 | Outpatient (CLI) | payer MEDICARE, BC, SELFPAY ==
[2024-03-20 15:34] LABS: Abs Immature Grans 0.12 10^3/uL (0.0-0.06); Absolute Basophil Count 0.03 10^3/uL (0.0-0.2); Absolute Eosinophil Count 0.05 10^3/uL (0.0-0.7); Absolute Lymphocyte Count 0.83 10^3/uL (1.2-3.4); Basophils % 0.4 %; Eosinophils % 0.7 %; HCT 33.4 % (36.0-46.0); HGB 10.7 g/dL (11.2-15.7); Immature Grans % 1.6 %; Lymphocytes % 10.9 %; MCH 36.8 pg (27.0-33.0); MCV 115 fL (80-95); MPV 10.1 fL (8.0-11.0); Monocytes % 6.6 %; Neutrophils % 79.8 %; Platelet Count 333 10^3/uL (130-400); RBC 2.91 10^6/uL (3.93-5.22); RDW 14.4 % (11.7-14.6); RDW-SD 60.8 fL; WBC 7.58 10^3/uL (4.4-10.8)
[2024-03-20 16:01] LABS: ALT 25 U/L (14-59); AST 23 U/L (15-37); Albumin 3.8 g/dL (3.4-5.0); Alkaline Phosphatase 68 U/L (46-116); Anion Gap 6.5 mmol/L (3-11); BUN 48 mg/dL (7-18); Bilirubin, Total 0.45 mg/dL (0.2-1.0); CO2 30.5 mmol/L (21.0-32.0); CREATININE 1.7 mg/dL (0.55-1.02); Calcium 9.7 mg/dL (8.5-10.1); Chloride 103 mmol/L (98-107); Estimated GFR 31.47 (mL/min/1.73m2); Glucose 227 mg/dL (74-106); Potassium 4.6 mmol/L (3.5-5.1); Sodium 140 mmol/L (136-145); Total Protein 7.3 g/dL (6.4-8.2)
[2024-03-20 16:02] LABS: Diff Comment RBC Morph Reviewed; Macrocytosis 2+
[2024-03-20 16:03] LABS: Absolute Neutrophil Count 6.05 10^3/uL (1.2-6.7)
== END 2024-03-20 03:08 | disposition home or self-care (01) ==
PROVIDERS: PCP Family Medicine; Visit Provider Internal Medicine Hematology & Oncology
DX: D47.1 Chronic myeloproliferative disease (principal); D75.839 Thrombocytosis, unspecified; S81.801D Unspecified open wound, right lower leg, subsequent encounter; I73.9 Peripheral vascular disease, unspecified
CPT/HCPCS: 36415; 80053; 82565; 85025

== ENCOUNTER → 2024-04-02 13:55 | Outpatient (BNVA) | payer MEDICARE, BC, SELFPAY | PROVIDERS: PCP Family Medicine; Referring Provider Family Medicine; Visit Provider Nurse Practitioner Adult Health | DX: G56.03 Carpal tunnel syndrome, bilateral upper limbs (principal); G56.23 Lesion of ulnar nerve, bilateral upper limbs | CPT/HCPCS: 95911; 99204 ==

== ENCOUNTER 2024-05-02 00:53 | Emergency (ER) | payer MEDICARE, BC, SELFPAY ==
[2024-05-02 00:59] VITALS: BP 213/77; PULSE 82; RESP 16; TEMP 37.1; O2SAT 94
--- NOTE | 2024-05-02 01:00 | RT.EKG_ITS ---
APPROVED REPORT Exam: Resting ECG Reason for Exam: chest pain Patient Location: E HR:74 bpm ECG Measurements Heart Rate 74 AXIS MD 173 P 12 QRSd 99 QRS 31 QT 386 T 80 QTc 427 Conclusion Sinus arrhythmia...V-rate 64- 89, variation>10% Low voltage, precordial leads...precordial leads <1.0mV Physician: no stemi
[2024-05-02] MEDS: MORPHine 4 MG/ML SYR IVP (01:20)
[2024-05-02 01:29] LABS: Abs Immature Grans 0.07 10^3/uL (0.0-0.06); Absolute Basophil Count 0.05 10^3/uL (0.0-0.2); Absolute Eosinophil Count 0.04 10^3/uL (0.0-0.7); Absolute Lymphocyte Count 0.72 10^3/uL (1.2-3.4); Absolute Monocyte Count 0.73 10^3/uL (0.1-0.8); Absolute Neutrophil Count 7.56 10^3/uL (1.2-6.7); Basophils % 0.5 %; Eosinophils % 0.4 %; HCT 35.8 % (36.0-46.0); HGB 11.4 g/dL (11.2-15.7); Immature Grans % 0.8 %; Lymphocytes % 7.9 %; MCH 36.2 pg (27.0-33.0); MCHC 31.8 % (32.0-36.0); MCV 114 fL (80-95); MPV 10.1 fL (8.0-11.0); Neutrophils % 82.4 %; Platelet Count 406 10^3/uL (130-400); RBC 3.15 10^6/uL (3.93-5.22); RDW 14.6 % (11.7-14.6); RDW-SD 60.5 fL; WBC 9.17 10^3/uL (4.4-10.8)
[2024-05-02] MEDS: Normal Saline 500 ML IV ×2 (01:35→03:22)
[2024-05-02 01:45] LABS: Lipase 50 U/L (16-77)
[2024-05-02 01:50] LABS: BUN 44 mg/dL (7-18); Glucose 186 mg/dL (74-106)
--- NOTE | 2024-05-02 01:50 | ED.GENADUL_ITS ---
Discharge Plan Disposition Patient Disposition: Home Condition: Good Discharge Details Clinical Impression: Back pain, Left flank discomfort, Right flank discomfort, Acute UTI Primary Care Provider: Gui Graham ED Provider: Jeronimo Pearce Home Meds and New Rx's Prescriptions: New cephalexin 500 mg capsule 500 mg PO QID 7 Days Qty: 28 0RF No Action carvedilol 12.5 mg tablet 12.5 mg PO BID Rx Instructions: must administer with a meal/food insulin degludec [Tresiba FlexTouch U-200] 200 unit/mL (3 mL) insulin pen 120 unit subcut DAILY 90 Days Qty: 54 4RF Rx Instructions: Inject 120 units subcutaneously once daily as directed Mounjaro 2.5 mg/0.5 mL pen injector 2.5 mg subcut QWEEK MDD 2.5 28 Days Qty: 2 12RF Rx Instructions: Inject 2.5 mg subcutaneously once weekly as directed. (DME) Dexcom G7 Community Engagement Coordinator Misc See Rx Instructions .Route Qty: 1 0RF Rx Instructions: As directed (DME) Dexcom G7 Sensor Device See Rx Instructions .Route Qty: 1 11RF Rx Instructions: As directed vibegron 75 mg tablet 75 mg PO DAILY Qty: 90 3RF Rx Instructions: per [facility] gyne, for urge incontinence potassium chloride 10 mEq tablet extended release 10 meq PO DAILY Qty: 90 3RF (DME) blood-glucose meter [Accu-Chek Guide Glucose Meter] Misc See Rx Instructions .ROUTE .MEDSUPPLY Qty: 1 0RF Rx Instructions: test as directed (DME) insulin syringe-needle U-100 [BD Insulin Syringe Ultra-Fine] 1 mL 31 gauge x 5/16 syringe See Rx Instructions .ROUTE .MEDSUPPLY Qty: 180 3RF Rx Instructions: 1 injection sq BID aspirin [Adult Aspirin Regimen] 81 mg tablet,delayed release (DR/EC) 81 mg PO DAILY folic acid 1 mg tablet 1 mg PO DAILY (DME) Accu-Chek Guide test strips Strip 1 ea Miscellaneous DAILY Qty: 300 3RF Rx Instructions: test 3 x day (DME) lancets Misc 1 ea Miscellaneous DAILY Qty: 300 3RF Rx Instructions: test 3 x /day magnesium 250 mg tablet 500 mg PO QHS Eliquis 5 mg tablet 5 mg PO BID Qty: 60 11RF Rx Instructions: Per discharge from [facility] on 05/18/2022 atorvastatin 40 mg tablet 40 mg PO DAILY Qty: 90 3RF chlorthalidone 50 mg tablet 100 mg PO DAILY Qty: 180 3RF duloxetine 60 mg capsule,delayed release(DR/EC) 60 mg PO DAILY Qty: 90 3RF duloxetine 30 mg capsule,delayed release(DR/EC) 30 mg PO DAILY Qty: 90 3RF Rx Instructions: take with a 60 mg capsule to equal 90 mg/day furosemide 20 mg tablet 20 mg PO DAILY Qty: 90 3RF losartan 100 mg tablet 100 mg PO DAILY Qty: 90 3RF metformin 500 mg tablet 500 mg PO BID Qty: 180 3RF ropinirole 8 mg tablet extended release 24 hr 8 mg PO DAILY Qty: 90 3RF spironolactone [Aldactone] 25 mg tablet 25 mg PO DAILY Qty: 90 3RF hydroxyurea 500 mg capsule 500 - 1,000 mg PO DAILY Qty: 115 3RF Rx Instructions: 500 mg/day except take 1000 mg Sat and Saturday Discharge Instructions Instructions: Urinary Tract Infection, Adult ED Additional Instructions: At this time your workup is returned reassuring. You do have evidence of urinary tract infection, please take the antibiotic as directed. It has been sent to your pharmacy on file. Additionally as we discussed your gallbladder is slightly enlarged. This may have been a component of your symptoms as well. Please avoid greasy foods, fatty foods, or dairy as this can exacerbate spasms of the gallbladder. If you notice any worsening of your symptoms, or any new symptoms such as vomiting, diarrhea, fever, chills, shortness of breath, chest pain, numbness, weakness, or fainting , please return immediately to the emergency department for reevaluation. Please follow up with your primary care provider as soon as possible for reassessment and reevaluation. As always, it was a pleasure participating in your medical care today. Referrals: Gui Graham MD [Primary Care Provider] - [facility] General Date/Time Provider Initiated Documentation: 05/02/24 01:06 . 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 Patient states that earlier today she had a lesion on her vulva removed by surgery down at [facility]. That was uncomplicated, she has done well ever since however at around 11 PM tonight she woke up with a pain in her central back that radiated anteriorly around both sides of her chest. The pain comes and goes in severity, it is achy and sharp and stabbing. She does admit to it taking her breath away, however it is not particularly worsened with breathing. She denies any other complaints. She has been taking her blood thinner. She denies any fever, chills or cough. No other complaints at this time. No trauma. No other modifying factors. Related Data Home Medications ?Medication ?Instructions ?Recorded ?Confirmed blood-glucose meter (Accu-Chek #1 ea 03/17/20 05/02/24 Guide Glucose Meter) insulin syringe-needle U-100 1 mL #180 ea 12/06/20 05/02/24 31 gauge x 5/16 (BD Insulin Syringe Ultra-Fine) aspirin 81 mg tablet,delayed 81 mg PO DAILY 06/05/22 05/02/24 release (Adult Aspirin Regimen) folic acid 1 mg tablet 1 mg PO DAILY 06/05/22 05/02/24 blood sugar diagnostic (Accu-Chek #300 strips 11/24/22 05/02/24 Guide test strips) lancets #300 ea 11/24/22 05/02/24 blood-glucose meter,continuous #1 ea 01/02/23 05/02/24 (Dexcom G7 Community Engagement Coordinator) blood-glucose sensor (Dexcom G7 #1 ea 01/02/23 05/02/24 Sensor device) magnesium 250 mg tablet 500 mg PO QHS 07/01/23 05/02/24 carvedilol 12.5 mg tablet 12.5 mg PO BID 12/23/23 05/02/24 apixaban 5 mg tablet (Eliquis) 5 mg PO BID #60 tabs 01/13/24 05/02/24 atorvastatin 40 mg tablet 40 mg PO DAILY #90 tab-caps 01/13/24 05/02/24 chlorthalidone 50 mg tablet 100 mg (2 x 50 mg) PO DAILY #180 01/13/24 05/02/24 tabs duloxetine 30 mg capsule,delayed 30 mg PO DAILY #90 caps 01/13/24 05/02/24 release duloxetine 60 mg capsule,delayed 60 mg PO DAILY #90 caps 01/13/24 05/02/24 release furosemide 20 mg tablet 20 mg PO DAILY #90 tabs 01/13/24 05/02/24 losartan 100 mg tablet 100 mg PO DAILY #90 tabs 01/13/24 05/02/24 metformin 500 mg tablet 500 mg PO BID #180 tabs 01/13/24 05/02/24 ropinirole 8 mg tablet,extended 8 mg PO DAILY #90 tabs 01/13/24 05/02/24 release 24 hr spironolactone 25 mg tablet 25 mg PO DAILY #90 tabs 01/13/24 05/02/24 (Aldactone) insulin degludec 200 unit/mL (3 120 unit (0.6 mL) subcut DAILY 90 02/25/24 05/02/24 mL) subcutaneous pen ( #54 mL FlexTouch U-200 insulin) tirzepatide 2.5 mg/0.5 mL 2.5 mg (0.5 mL) subcut QWEEK 4 02/25/24 05/02/24 subcutaneous pen injector weeks #2 mL (Mounjaro) potassium chloride 10 mEq 10 meq PO DAILY #90 tabs 03/11/24 05/02/24 tablet,extended release vibegron 75 mg tablet 75 mg PO DAILY #90 tabs 03/11/24 05/02/24 hydroxyurea 500 mg capsule 500 - 1,000 mg (1 - 2 x 500 mg) PO 04/08/24 05/02/24 DAILY #115 caps cephalexin 500 mg capsule 500 mg PO QID 7 days #28 caps 05/02/24 Previous Rx's ?Medication ?Instructions ?Recorded blood-glucose meter (Accu-Chek #1 ea 03/17/20 Guide Glucose Meter) insulin syringe-needle U-100 1 mL #180 ea 12/06/20 31 gauge x 5/16 (BD Insulin Syringe Ultra-Fine) blood sugar diagnostic (Accu-Chek #300 strips 11/24/22 Guide test strips) lancets #300 ea 11/24/22 blood-glucose meter,continuous #1 ea 01/02/23 (Dexcom G7 Community Engagement Coordinator) blood-glucose sensor (Dexcom G7 #1 ea 01/02/23 Sensor device) apixaban 5 mg tablet (Eliquis) 5 mg PO BID #60 tabs 01/13/24 atorvastatin 40 mg tablet 40 mg PO DAILY #90 tab-caps 01/13/24 chlorthalidone 50 mg tablet 100 mg (2 x 50 mg) PO DAILY #180 01/13/24 tabs duloxetine 30 mg capsule,delayed 30 mg PO DAILY #90 caps 01/13/24 release duloxetine 60 mg capsule,delayed 60 mg PO DAILY #90 caps 01/13/24 release furosemide 20 mg tablet 20 mg PO DAILY #90 tabs 01/13/24 losartan 100 mg tablet 100 mg PO DAILY #90 tabs 01/13/24 metformin 500 mg tablet 500 mg PO BID #180 tabs 01/13/24 ropinirole 8 mg tablet,extended 8 mg PO DAILY #90 tabs 01/13/24 release 24 hr spironolactone 25 mg tablet 25 mg PO DAILY #90 tabs 01/13/24 (Aldactone) insulin degludec 200 unit/mL (3 120 unit (0.6 mL) subcut DAILY 90 02/25/24 mL) subcutaneous pen ( days #54 mL FlexTouch U-200 insulin) tirzepatide 2.5 mg/0.5 mL 2.5 mg (0.5 mL) subcut QWEEK 4 02/25/24 subcutaneous pen injector weeks #2 mL (Mounjaro) potassium chloride 10 mEq 10 meq PO DAILY #90 tabs 03/11/24 tablet,extended release vibegron 75 mg tablet 75 mg PO DAILY #90 tabs 03/11/24 hydroxyurea 500 mg capsule 500 - 1,000 mg (1 - 2 x 500 mg) PO 04/08/24 DAILY #115 caps cephalexin 500 mg capsule 500 mg PO QID 7 days #28 caps 05/02/24 Allergies Allergy/AdvReac Type Severity Reaction Status Date / Time clopidogrel Allergy Skin Rash Verified 05/02/24 01:03 oxybutynin AdvReac Intermediate Reflex Verified 05/02/24 01:03 propoxyphene AdvReac Nausea Verified 05/02/24 01:03 General Stated Complaint: Nk/Back Pain KIMI: 3 Review of Systems All systems reviewed & are unremarkable except as noted in HPI and below Exam Narrative Exam Narrative: 1.Const: Well-nourished, Well-developed, appearing stated age 2.Eyes: PERRL, no conjunctival injection, and symmetrical lids. 3.ENT: Atraumatic external nose and ears. Moist MM. Neck: Symmetric, trachea midline, No thyromegaly. 4.CVS: +S1/S2, No murmurs or gallops. Peripheral pulses 2+ and equal in all extremities. Brisk capillary refill in all extremities. 5.RESP: Unlabored respiratory effort. Clear to auscultation bilaterally. No w heezes rales or rhonchi 6.GI: Soft, Nontender/Nondistended, No hepatosplenomegaly. No guarding or rebound. No flank or CVA tenderness. No midline thoracic tenderness. Pain originates around T8 internally. No rash. 7.MSK: Normocephalic/Atraumatic, left lower extremity amputation well-appearing. Radial pulses +2 bilaterally. 8.Skin: Warm, Dry. No rashes or lesions. 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 Sensation grossly intact, no focal neurologic deficits. 10.Psych: (AAO) x3. Appropriate mood and affect Course Vital Signs Vital signs: Vital Signs Temperature 37.1 C 05/02/24 00:59 Pulse 82 05/02/24 00:59 Respiratory Rate 16 05/02/24 00:59 Blood Pressure 213/77 H 05/02/24 00:59 Pulse Oximetry 94 05/02/24 00:59 Temperature 37.1 C 05/02/24 00:59 Temperature Source Temporal Artery Scan 05/02/24 00:59 Pulse 82 05/02/24 00:59 Respiratory Rate 16 05/02/24 00:59 Respiratory Effort Normal, Non-Labored 05/02/24 01:02 Blood Pressure 213/77 H 05/02/24 00:59 Blood Pressure Position Sitting 05/02/24 00:59 Pulse Oximetry 94 05/02/24 00:59 Oxygen Delivery Method Room Air 05/02/24 00:59 Oxygen Flow Rate 0 05/02/24 00:59 Pain Level 10 05/02/24 00:59 Medical Decision Making 73-year-old female with a past medical history of obstructive sleep apnea, type 2 diabetes, restless leg syndrome, 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 Patient states that earlier today she had a lesion on her vulva removed by surgery down at [facility]. That was uncomplicated, she has done well ever since however at around 11 PM tonight she woke up with a pain in her central back that radiated anteriorly around both sides of her chest. The pain comes and goes in severity, it is achy and sharp and stabbing. She does admit to it taking her breath away, however it is not particularly worsened with breathing. She denies any other complaints. She has been taking her blood thinner. She denies any fever, chills or cough. No other complaints at this time. No trauma. No other modifying factors. Exam demonstrates well-appearing female, she states her pain is quite severe, vital signs demonstrate no tachycardia, mild hypertension. Radial pulses +2 bilaterally. Lungs are clear, no signs of trauma rash or other abnormality externally. Differential is broad but includes musculoskeletal strain, less likely AAA. PE is unlikely given her anticoagulant use. Pneumothorax is unlikely, pancreatitis remains on the differential although it is less likely with no vomiting. Urolithiasis is of concern. Will get CT imaging, manage the patient's pain with morphine, gently rehydrate with 500 cc normal saline, monitor closely and reassess. 6:31 AM On reassessment patient has complete resolution of her symptoms. She feels well, and has been feeling well for the past hour. No symptom return whatsoever. CT scan shows evidence of some gallstones and nonspecific gallbladder distention but no evidence of choledocholithiasis, or cholecystitis. Laboratory workup shows no white count bandemia or left shift. Potassium was elevated greater than 5, and she was given 2 albuterol nebulizers, 5 units of insulin IV, and a liter of fluid total. She tolerated all this well, repeat potassium is now 4.6. Renal function remained stable. Transaminases and lipase normal. She has tolerated p.o. well. Urinalysis does show evidence of an e levated WBC, small leuk esterase, negative nitrites. Suspect UTI. Symptoms may have been caused from urinary tract infection, potential biliary colic, or muscle spasm. No other evidence of acute life-threatening etiology otherwise. EKG normal. Symptoms inconsistent with ACS. Patient otherwise feels well and is requesting discharge. Patient will be discharged home. Prescription for Keflex has been sent, 2 g of ceftriaxone has been administered here. Will recommend avoidance of fatty and greasy foods for her mildly distended gallbladder. Recommend close follow-up with PCP. Discussed red flags for which to return. I have extensively reviewed the treatment plan and discharge instructions with the patient and their family. I have addressed all patient concerns at this time. The patient and family was made aware of what symptoms to monitor for that would warrant a return to the emergency department. Discussed the plan with the patient and family, they demonstrate verbal understanding and agreement with our assessment and plan at this time. The documentation in this chart was dictated using Frankly dictation software. Please excuse any dictation errors. FINDINGS: Lungs: Scarring and/or subsegmental atelectasis in left lung base. Pleural spaces: Unremarkable. No pneumothorax. No pleural effusion. Heart: Heart normal in size.There is diminished attenuation of the cardiac c hambers in comparison to the myocardium which can be seen with anemia. Correlate clinically. Coronary arteries: Coronary artery calcification. Lymph nodes: No adenopathy. Vasculature: Thoracic aorta normal in caliber. Diaphragm: Small hiatal hernia. Bones/joints: Status post reverse left shoulder replacement. The spine demonstrates moderate degenerative changes at multiple levels. Multiple healed right rib fractures. Soft tissues: Unremarkable. IMPRESSION: No acute findings. FINDINGS: Liver: Liver normal in size. No mass. Gallbladder and biliary ducts: Gallbladder distended. Small calcified ga llstones. No gallbladder wall thickening. Pancreas: Pancreatic atrophy. No ductal dilatation. Spleen: Normal. No splenomegaly. Adrenal glands: Normal. No mass. Kidneys and ureters: Stable 2 cm exophytic lesion extending from left upper pole cortex. hydronephrosis. Stomach and bowel: No dilated segments of small bowel or colonic dilatation. Multiple colonic diverticula. Appendix: Normal appendix. Intraperitoneal space: Unremarkable. No free air. No significant fluid collection. Vasculature: Unremarkable. No abdominal aortic aneurysm. Lymph nodes: Unremarkable. No enlarged lymph nodes. Urinary bladder: Limited evaluation. Reproductive: Limited evaluation. Bones/joints: The spine demonstrates mild degenerative changes at multiple levels. Status post bilateral total hip replacements. Soft tissues: Unremarkable. IMPRESSION: 1. Limited evaluation of pelvic structures. 2. Gallstones. 3. Nonspecific gallbladder distension. 4. Colonic diverticula. 5. Pancreatic atrophy. Quality:SDOH Health Related Social Needs: No Data to Display PFSH All Active Problems (Updated 05/02/24 @ 05:56 by Jeronimo Pearce DO) Acute UTI (Acute) Right flank discomfort (Acute) Left flank discomfort (Acute) Back pain (Acute) Ulnar neuropathy of both upper extremities (Acute) Bilateral carpal tunnel syndrome (Acute) Renal lesion (Acute) Phlegm in throat (Acute) Hand numbness (Acute) Lipodermatosclerosis (Acute) Bladder leak (Acute) Weight gain (Acute) Rash (Acute) Change in bowel habits (Acute) Peripheral vascular disease (Chronic) S/P right SFA antioplasty an sstenting, 2003. Left DVA to [place] popliteal bypass with [place], 2003. Bypass Left Stent Right 2005 left BKA 08/28 CAD (coronary artery disease) (Chronic) S/P stent 2004 Hypertension (Chronic) Hyperlipidemia (Chronic) Atherosclerosis of [place] coronary artery (Acute) Stent RCA 2006 B12 deficiency (Acute 04/08/15) Cataracts, both eyes (Acute) 11/11/15 OPTICAL EXPRESSIONS; EARLY CATARACTS Essential hypertension (Acute 08/18/13) History of tobacco use (Acute) Hyperlipidemia (Acute 01/14/14) ALEX (obstructive sleep apnea) (Chronic 03/11/18) not on CPAP due to bedroom size Polyp of colon (Acute 09/15/09) 09/25 COLONOSCOPY: ONE TUBULAR ADENOMA AND FOUR HYPERPLASTIC POLYPS. 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 Harvey. 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 -hb S/P peripheral artery angioplasty with stent placement Status post below-knee amputation of left lower extremity (2012) History of total right hip replacement (08/03/20) Hx of tubal ligation History of carpal tunnel release Bilaterally Family History Mother , 74 Neoplasm UTERINE Osteoporosis Uterine cancer Lung cancer Father Lung cancer Sister Neoplasm MELANOMA Breast cancer Sister No problems noted. Sister Skin cancer Brother No problems noted. Son Alcohol abuse Depression Maternal Grandfather Stomach cancer Paternal Grandfather No problems noted. Maternal Grandmother No problems noted. Paternal Grandmother No problems noted. Daughter Depression Social History Smoking/Tobacco Use Status: Former Tobacco Use tobacco type: cigarettes Tobacco: How many years used: 37 Second Hand Exposure: Yes Smoking risk assessment performed?: Yes Alcohol Intake: current Alcohol Intake frequency: a few times a month Alcohol type: beer and hard liquor Drug use: Never Substance use type: does not use Caregiver/Support person: No Household members: none Housing: house Do you need help understanding health information?: Rarely current occupation: [employer] Pets and animals: Yes Pets and animals: cat(s) Sexually active: No Do you think of yourself as: straight/heterosexual Current gender identity: female What is your relationship status?: How often do you talk on the phone with friends or family?: three or more times per week How often do you get together with friends or relatives?: decline to answer How often do you attend lutheran or episcopal services?: 1-3 times per year Do you belong to any clubs or organized social groups?: no Panel score (0-1 are the most socially isolated patients): 2 What type of physical activity do you participate in: none Carmelina/Mandaen: Holiness Special carmelina needs: No Seatbelt use: always Helmet use: Yes Helmet use: always Drive intox 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 haul driver: No Do you feel safe at home: Yes Do you feel safe in your relationship?: Yes Would you like helpful sources: No
[2024-05-02 01:51] LABS: ALT 19 U/L (14-59); AST 19 U/L (15-37); Albumin 3.9 g/dL (3.4-5.0); Alkaline Phosphatase 73 U/L (46-116); Anion Gap 11.7 mmol/L (3-11); Bilirubin, Total 0.48 mg/dL (0.2-1.0); CO2 25.3 mmol/L (21.0-32.0); CREATININE 1.8 mg/dL (0.55-1.02); Chloride 102 mmol/L (98-107); Estimated GFR 29.38 (mL/min/1.73m2); PTT Activated 27.2 sec (23.6-32.8); Potassium 5.5 mmol/L (3.5-5.1); Sodium 139 mmol/L (136-145); Total Protein 6.9 g/dL (6.4-8.2)
[2024-05-02 01:57] LABS: Macrocytosis 2+
--- NOTE | 2024-05-02 02:00 | DI.CT_ITS ---
Exam(s) CT CHEST/ABD/PEL WO EXAM: CT CHEST/ABD/PEL WO CLINICAL HISTORY: central back pain to anterior chest TECHNIQUE: Imaging Protocol: Axial computed tomography images with coronal and sagittal reformatted images were created and reviewed COMPARISON: CT,NM,TMT NM MPI REST STRESS GRP from 04/17/[address] CHEST WO from 09/21/2022 FINDINGS: CHEST: Tracheobronchial tree: Patent where visualized. Pulmonary parenchyma: No consolidation or dominant measurable mass. Scarring or atelectasis is seen i n the lungs. Calcified granuloma are present. There is a stable area of nodularity adjacent to the left major fissure. There are stable nodules in the lungs. No new pulmonary nodules are seen. No f ocal consolidating infiltrates are present. Mediastinum and Tonie: No dominant adenopathy or fluid collection. The esophagus is unremarkable. Smal l hiatal hernia. Thyroid gland: Unremarkable. Pleura: No effusion or pneumothorax. Heart: The heart is not dilated. Coronary artery calcifications are present. No pericardial effusion . Aorta: Thoracic aorta non-dilated. Atherosclerotic calcification is present. Lymph nodes: Within normal limits. Bones:Within normal limits for the patient's age. The patient has a left shoulder replacement. Old rib fracture deformities are present. Soft tissues: Unremarkable. ABDOMEN: Liver: Normal density. No measurable mass. Gallbladder and Biliary Tract: Gallbladder is distended. Gallstone is present. There is no biliary ductal dilatation. Pancreas: Normal density, no abnormal calcifications or inflammatory process. Spleen: Normal. Adrenals: No masses seen. Kidneys: Normal size, contour and axis. No radiodense stones or obstructive uropathy. There is a stab le cyst in the superior pole of the left kidney. Abdominal Aorta: Abdominal portion non-dilated. Atherosclerotic calcification is present. Bowel: There is diverticulosis of the colon. Oral contrast is seen within the: There is no evidence of bowel obstruction or bowel wall thickening. Appendix is unremarkable. Peritoneal Cavity: No ascites, collection or mesenteric inflammatory response. No free air. Lymph Nodes: Within normal limits. Bones: Within normal limits for the patient's age. Patient has bilateral total hip replacements. Soft Tissues: Unremarkable. PELVIS: Bladder: The urinary bladder is distended but otherwise unremarkable. There is artifact from the pat ient's bilateral total hip replacements. Reproductive Organs: Unremarkable as visualized. There is artifact from the patient's bilateral total hip replacements. Lymph Nodes: Within normal limits. Bones: Within normal limits for the patient's age. IMPRESSION: 1. No acute pulmonary process. 2. Cholelithiasis. Gallbladder distention. No biliary ductal dilatation. 3. Colonic diverticulosis without evidence of acute diverticulitis. No evidence of bowel obstruction or bowel wall thickening. 4. No acute abdominal or pelvic process. RADIATION DOSE DELIVERED: Total DLP Total DLP DATA REPOSITORY: All CT scans at this facility are submitted to the National Radiology Data Registry (NRDR) Dose Index Registry (DIR) with the [employer] ([employer]). RADIATION OPTIMIZATION: All CT scans at this facility use at least one of these dose optimization te chniques: automated exposure control; mA and/or kV adjustment per patient size (includes targeted exa ms where dose is matched to clinical indication); or iterative reconstruction.
[2024-05-02 02:01] LABS: Calcium 9.3 mg/dL (8.5-10.1)
[2024-05-02] MEDS: Albuterol 2.5 MG/3 ML INH SOLN VIAL 5 MG UPD (03:21)
[2024-05-02] MEDS: Insulin REGULAR-Human 100 UNITS/ML UNIT IV (03:21)
[2024-05-02 03:28] LABS: Bilirubin Negative (Negative); Blood Moderate (Negative); Clarity Sl Cloudy (Clear); Glucose Negative (Negative); Ketones Negative (Negative); Leukocyte Esterase Small (Negative); Nitrite Negative (Negative); Specific Gravity 1.015 (1.005-1.025); Urobilinogen 0.2 mg/dL (Up to 0.2); pH 5.5 (5-8)
[2024-05-02 03:33] LABS: WBC >50 HPF (0-5)
[2024-05-02 03:34] LABS: Bacteria Many HPF (Negative); C & S Indicated? Yes; Casts Negative LPF (Negative); Crystals Negative HPF (Negative); Epithelial Cells Few HPF (Negative); Mucus Negative (Negative)
[2024-05-02] MEDS: cefTRIAXone 2 GM/50 ML BAG IVPB (03:49)
[2024-05-02 04:39] LABS: Anion Gap 6.2 mmol/L (3-11); BUN 42 mg/dL (7-18); CO2 28.8 mmol/L (21.0-32.0); CREATININE 1.8 mg/dL (0.55-1.02); Chloride 105 mmol/L (98-107); Estimated GFR 29.38 (mL/min/1.73m2); Glucose 101 mg/dL (74-106); Potassium 4.6 mmol/L (3.5-5.1); Sodium 140 mmol/L (136-145)
--- NOTE | 2024-05-02 05:39 | DI.VRAD_ITS ---
PROCEDURE INFORMATION: Exam: CT Chest Without Contrast; Diagnostic Exam date and time: 05/02/2024 2:22 AM Age: 73 years old Clinical indication: Other: Central back pain to anterior chest TECHNIQUE: Imaging protocol: Diagnostic computed tomography of the chest without contrast. 3D rendering (Not supervised by radiologist): MIP and/or 3D reconstructed images were created by the technologist. COMPARISON: CT CHEST WO 09/21/2022 8:28 AM FINDINGS: Lungs: Scarring and/or subsegmental atelectasis in left lung base. Pleural spaces: Unremarkable. No pneumothorax. No pleural effusion. Heart: Heart normal in size.There is diminished attenuation of the cardiac chambers in comparison to the myocardium which can be seen with anemia. Correlate clinically. Coronary arteries: Coronary artery calcification. Lymph nodes: No adenopathy. Vasculature: Thoracic aorta normal in caliber. Diaphragm: Small hiatal hernia. Bones/joints: Status post reverse left shoulder replacement. The spine demonstrates moderate degenerative changes at multiple levels. Multiple healed right rib fractures. Soft tissues: Unremarkable. IMPRESSION: No acute findings. PROCEDURE INFORMATION: Exam: CT Abdomen And Pelvis Without Contrast Exam date and time: 05/02/2024 2:22 AM Age: 73 years old Clinical indication: Other: Central back pain to anterior chest TECHNIQUE: Imaging protocol: Computed tomography of the abdomen and pelvis without contrast. 3D rendering (Not supervised by radiologist): MIP and/or 3D reconstructed images were created by the technologist. Other technique: Extensive artifact from bilateral hip prostheses limits evaluation of pelvic structures. COMPARISON: CT PELVIC WO 11/25/2021 9:28 AM FINDINGS: Liver: Liver normal in size. No mass. Gallbladder and biliary ducts: Gallbladder distended. Small calcified gallstones. No gallbladder wall thickening. Pancreas: Pancreatic atrophy. No ductal dilatation. Spleen: Normal. No splenomegaly. Adrenal glands: Normal. No mass. Kidneys and ureters: Stable 2 cm exophytic lesion extending from left upper pole cortex. hydronephrosis. Stomach and bowel: No dilated segments of small bowel or colonic dilatation. Multiple colonic diverticula. Appendix: Normal appendix. Intraperitoneal space: Unremarkable. No free air. No significant fluid collection. Vasculature: Unremarkable. No abdominal aortic aneurysm. Lymph nodes: Unremarkable. No enlarged lymph nodes. Urinary bladder: Limited evaluation. Reproductive: Limited evaluation. Bones/joints: The spine demonstrates mild degenerative changes at multiple levels. Status post bilateral total hip replacements. Soft tissues: Unremarkable. IMPRESSION: 1. Limited evaluation of pelvic structures. 2. Gallstones. 3. Nonspecific gallbladder distension. 4. Colonic diverticula. 5. Pancreatic atrophy. Dictated and Authenticated by: Tim Ram MD. Ordering:CHARISMA Decker MD
[2024-05-02 05:59] VITALS: BP 152/54; PULSE 62; RESP 18; TEMP 36.1; O2SAT 93
[2024-05-02 06:05] VITALS: BP 152/54; PULSE 62; RESP 18; TEMP 36.1; O2SAT 93
== END 2024-05-02 06:07 | disposition home or self-care (01) ==
PROVIDERS: Emergency Provider Student in an Organized Health Care Education/Training Program; PCP Family Medicine
DX: N39.0 Urinary tract infection, site not specified (principal); K80.20 Calculus of gallbladder without cholecystitis without obstruction; K57.30 Diverticulosis of large intestine without perforation or abscess without bleeding; I48.91 Unspecified atrial fibrillation; I10 Essential (primary) hypertension; I25.10 Atherosclerotic heart disease of native coronary artery without angina pectoris; E11.9 Type 2 diabetes mellitus without complications; Z89.512 Acquired absence of left leg below knee; Z79.84 Long term (current) use of oral hypoglycemic drugs; Z79.85 Long-term (current) use of injectable non-insulin antidiabetic drugs; Z79.4 Long term (current) use of insulin; Z79.01 Long term (current) use of anticoagulants; Z79.82 Long term (current) use of aspirin; Z87.891 Personal history of nicotine dependence
CPT/HCPCS: 36415; 71250; 80048; 80053; 83690; 87077; 93005; 94640; 96361; 96365; 96375; 99285; 74176; 81003; 81015; 85025; 85610; 85730; 87086; 87186; 93010; 99284; J0696; J1815; J2270; J7613

== ENCOUNTER 2024-05-03 15:37 | Emergency (ER) | payer MEDICARE, BC, SELFPAY ==
[2024-05-03 16:02] VITALS: BP 122/61; PULSE 70; RESP 15; TEMP 35.8; O2SAT 93
[2024-05-03 16:06] VITALS: BP 122/61; PULSE 70; RESP 15; TEMP 35.8; O2SAT 93
--- NOTE | 2024-05-03 16:15 | RT.EKG_ITS ---
APPROVED REPORT Exam: Resting ECG Reason for Exam: Abd pain Patient Location: E HR:66 bpm ECG Measurements Heart Rate 66 AXIS UT 165 P 31 QRSd 93 QRS 31 QT 390 T 75 QTc 398 Conclusion Sinus rhythm PACs No STEMI
--- NOTE | 2024-05-03 16:47 | W.ED.GENAD ---
Discharge Plan Disposition Patient Disposition: Home Condition: Stable Discharge Details Clinical Impression: Abdominal pain of unknown cause, Hernia, hiatal, Essential hypertension, Hyperlipidemia, ALEX (obstructive sleep apnea), CAD (coronary artery disease), Type 2 diabetes mellitus with circulatory disorder, with long-term current use of insulin Primary Care Provider: Gui Graham ED Provider: Pricilla Rivera Home Meds and New Rx's Prescriptions: New omeprazole 40 mg capsule,delayed release(DR/EC) 40 mg PO DAILY 14 Days Qty: 14 0RF No Action carvedilol 12.5 mg tablet 12.5 mg PO BID Rx Instructions: must administer with a meal/food insulin degludec [Tresiba FlexTouch U-200] 200 unit/mL (3 mL) insulin pen 120 unit subcut DAILY 90 Days Qty: 54 4RF Rx Instructions: Inject 120 units subcutaneously once daily as directed Mounjaro 2.5 mg/0.5 mL pen injector 2.5 mg subcut QWEEK MDD 2.5 28 Days Qty: 2 12RF Rx Instructions: Inject 2.5 mg subcutaneously once weekly as directed. (DME) Dexcom G7 Charrer Misc See Rx Instructions .Route Qty: 1 0RF Rx Instructions: As directed (DME) Dexcom G7 Sensor Device See Rx Instructions .Route Qty: 1 11RF Rx Instructions: As directed vibegron 75 mg tablet 75 mg PO DAILY Qty: 90 3RF Rx Instructions: per [facility]ne, for urge incontinence potassium chloride 10 mEq tablet extended release 10 meq PO DAILY Qty: 90 3RF (DME) blood-glucose meter [Accu-Chek Guide Glucose Meter] [facility] See Rx Instructions .ROUTE .MEDSUPPLY Qty: 1 0RF Rx Instructions: test as directed (DME) insulin syringe-needle U-100 [BD Insulin Syringe Ultra-Fine] 1 mL 31 gauge x 5/16 syringe See Rx Instructions .ROUTE .MEDSUPPLY Qty: 180 3RF Rx Instructions: 1 injection sq BID aspirin [Adult Aspirin Regimen] 81 mg tablet,delayed release (DR/EC) 81 mg PO DAILY folic acid 1 mg tablet 1 mg PO DAILY (DME) Accu-Chek Guide test strips Strip 1 ea Miscellaneous DAILY Qty: 300 3RF Rx Instructions: test 3 x day (DME) lancets Misc 1 ea Miscellaneous DAILY Qty: 300 3RF Rx Instructions: test 3 x /day magnesium 250 mg tablet 500 mg PO QHS Eliquis 5 mg tablet 5 mg PO BID Qty: 60 11RF Rx Instructions: Per discharge from [facility] on 05/18/2022 atorvastatin 40 mg tablet 40 mg PO DAILY Qty: 90 3RF chlorthalidone 50 mg tablet 100 mg PO DAILY Qty: 180 3RF duloxetine 60 mg capsule,delayed release(DR/EC) 60 mg PO DAILY Qty: 90 3RF duloxetine 30 mg capsule,delayed release(DR/EC) 30 mg PO DAILY Qty: 90 3RF Rx Instructions: take with a 60 mg capsule to equal 90 mg/day furosemide 20 mg tablet 20 mg PO DAILY Qty: 90 3RF losartan 100 mg tablet 100 mg PO DAILY Qty: 90 3RF metformin 500 mg tablet 500 mg PO BID Qty: 180 3RF ropinirole 8 mg tablet extended release 24 hr 8 mg PO DAILY Qty: 90 3RF spironolactone [Aldactone] 25 mg tablet 25 mg PO DAILY Qty: 90 3RF hydroxyurea 500 mg capsule 500 - 1,000 mg PO DAILY Qty: 115 3RF Rx Instructions: 500 mg/day except take 1000 mg Sat and Saturday cephalexin 500 mg capsule 500 mg PO QID 7 Days Qty: 28 0RF Discharge Instructions Additional Instructions: You were seen in the emergency department today for evaluation of abdominal pain that worsened with a deep breath. In our department you had a full physical examination performed, had reassuring laboratory studies, and had a CT scan that did not show any blood clots in your lungs or other abnormalities to account for your symptoms. Unfortunately, we are sometimes unable to determine the exact cause of symptoms in the emergency department. It is possible that you are experiencing symptoms of acid reflux and irritation, and for that we have started you on a medication called Prilosec. Please take it for the next 2 weeks, but understands that it may not start working for several days. You need to follow-up with your primary care provider in the next few days to discuss this visit and any symptoms that change, worsen, or persist. Please continue to take your antibiotic for your urinary tract infection until it is gone, even if you start to feel better. Thank you for allowing us to be part of your care. HPI General Mode of arrival: ambulatory. Date/Time Provider Initiated Documentation: 05/03/24 15:40. Limitations to Documentation: no limitations. Information obtained by: patient. HPI Narrative: MDM: This is a 73-year-old female patient presenting for reevaluation of ongoing abdominal pain with shortness of breath. My differential includes but is not limited to intra-abdominal pathologies including diverticulitis, mesenteric ischemia, less likely aortic disease with not identified on CT imaging 2 days ago, appendicitis, gastroenteritis, cholecystitis, pancreatitis, esophagitis, peptic ulcer disease. I considered pyelonephritis and UTI given the patient's known infection, considered pelvic inflammatory disease with the patient is without vaginal symptoms to suggest same. I did consider pulmonary embolism given the pleuritic nature of her pain, and the fact that she was taken off of her anticoagulation for approximately 1 week. The patient does not have characteristic chest pain but I did consider ACS. Pulmonary abnormality such as pneumonia, reactive airway disease exacerbation, pleural effusion, pneumothorax, pulmonary edema were also considered. Reassuringly the patient is hemodynamically appropriate and well-appearing. Will obtain laboratory studies to include CBC, CMP, lipase, lactate, troponin, and D-dimer. I will repeat a urinalysis. ED Course: I independently interpreted the laboratory studies, which show no significant leukocytosis, anemia, or thrombocytopenia. The chemistry panel is without evidence of electrolyte abnormality other than a mild hypokalemia that is not associated with any significant EKG changes, kidney dysfunction that is at her baseline, and no evidence of liver injury. Her troponin was negative but her D-dimer is elevated, and for this reason we obtained a CT pulmonary embolism study. I independently reviewed this study, which was negative for pulmonary embolism or other abnormalities to account for her symptoms. I did provide the patient with a dose of Mylanta for GI, symptoms, as she does endorse some symptoms concerning for esophagitis/GERD. We discussed all the findings, and the patient does endorse some improvement in her pain though she is endorsing frustration at the lack of clear diagnosis to explain her symptoms. However, she understands that we will have her follow-up with her primary care provider in the next few days to determine if the Prilosec which I will prescribe to her is helping, and discussed neck steps in workup and management. She will continue to take her antibiotic for her UTI, urinalysis demonstrates ongoing infection but I would not be surprised given the brief duration of time since identification, and I do not believe that this represents antibiotic failure. At this time, the patient has had a full medical evaluation and is safe for discharge to home. They are hemodynamically stable, ambulatory, and tolerating PO. They are understanding of the follow-up plan and return precautions. They left our facility without incident. Pricilla Rivera MD HPI: This is a 73-year-old female patient with a past medical history significant for diabetes, peripheral vascular disease status post left lower extremity amputation, of recent vulvar lesion surgery at [facility], and history of atrial fibrillation on apixaban, presenting for evaluation of abdominal pain. Of note, the patient was seen here on Saturday in the emergency department for similar symptoms, at which time she had a reassuring laboratory workup and a CT scan of her abdomen that showed cholelithiasis without cholecystitis, hiatal hernia, and was found to have a UTI for which she was started on antibiotics, which she has been taking. She reports that she returned here today because her pain has persisted. She notices that when she takes a deep breath she has pain that is sharp and wraps around both sides of her chest wall, and seems to radiate into her upper abdomen. She also has bilateral lower abdominal pains. States that she has not tried any medications for this pain, has not vomited since yesterday, and has been passing stool normally. She is not having dysuria or hematuria, is not experiencing vulvar pain. Patient states that she did start taking her apixaban again after her surgery, had held it for approximately 1 week in anticipation of the surgery due to a prior complication with hematoma. She has been able to eat and drink, and has not had a fever. She reports that she does feel short of breath, largely because she feels that when she takes a deep breath it causes worsening of this pain and she feels a fullness in her upper abdomen. Exam: Gen: Awake and alert, in no apparent distress HEENT: Non-icteric sclera Neck: Supple Lungs: No apparent respiratory distress, normal respiratory effort. Lung sounds clear and equal bilaterally CV: Appears well perfused, heart with irregularly irregular rhythm, strong distal pulses, no chest wall tenderness to palpation Abdomen: Non-distended, soft, generalized tenderness with no rigidity, rebound, or guarding. Archer sign negative : examination supervised by RADHA, revealing normal external female genitalia with a well-healing biopsy site, with no surrounding ecchymosis, hematoma, or evidence of infectious changes MSK: Moves 3 extremities without apparent limitation in ROM. Status post left lower extremity amputation. Skin: Visualized skin without rashes, cyanosis. Specifically, there are no rashes overlying the chest wall or abdomen where the patient endorses pain Neuro: Normal Gait, no obvious focal deficits or facial asymmetry. Speaks in full, clear sentences. Psych: Appropriate for situation. Related Data Home Medications ?Medication ?Instructions ?Recorded ?Confirmed blood-glucose meter (Accu-Chek #1 ea 03/17/20 05/02/24 Guide Glucose Meter) insulin syringe-needle U-100 1 mL #180 ea 12/06/20 05/02/24 31 gauge x 5/16 (BD Insulin Syringe Ultra-Fine) aspirin 81 mg tablet,delayed 81 mg PO DAILY 06/05/22 05/02/24 release (Adult Aspirin Regimen) folic acid 1 mg tablet 1 mg PO DAILY 06/05/22 05/02/24 blood sugar diagnostic (Accu-Chek #300 strips 11/24/22 05/02/24 Guide test strips) lancets #300 ea 11/24/22 05/02/24 blood-glucose meter,continuous #1 ea 01/02/23 05/02/24 (Dexcom G7 Charrer) blood-glucose sensor (Dexcom G7 #1 ea 01/02/23 05/02/24 Sensor device) magnesium 250 mg tablet 500 mg PO QHS 07/01/23 05/02/24 carvedilol 12.5 mg tablet 12.5 mg PO BID 12/23/23 05/02/24 apixaban 5 mg tablet (Eliquis) 5 mg PO BID #60 tabs 01/13/24 05/02/24 atorvastatin 40 mg tablet 40 mg PO DAILY #90 tab-caps 01/13/24 05/02/24 chlorthalidone 50 mg tablet 100 mg (2 x 50 mg) PO DAILY #180 01/13/24 05/02/24 tabs duloxetine 30 mg capsule,delayed 30 mg PO DAILY #90 caps 01/13/24 05/02/24 release duloxetine 60 mg capsule,delayed 60 mg PO DAILY #90 caps 01/13/24 05/02/24 release furosemide 20 mg tablet 20 mg PO DAILY #90 tabs 01/13/24 05/02/24 losartan 100 mg tablet 100 mg PO DAILY #90 tabs 01/13/24 05/02/24 metformin 500 mg tablet 500 mg PO BID #180 tabs 01/13/24 05/02/24 ropinirole 8 mg tablet,extended 8 mg PO DAILY #90 tabs 01/13/24 05/02/24 release 24 hr spironolactone 25 mg tablet 25 mg PO DAILY #90 tabs 01/13/24 05/02/24 (Aldactone) insulin degludec 200 unit/mL (3 120 unit (0.6 mL) subcut DAILY 90 02/25/24 05/02/24 mL) subcutaneous pen ( #54 mL FlexTouch U-200 insulin) tirzepatide 2.5 mg/0.5 mL 2.5 mg (0.5 mL) subcut QWEEK 4 02/25/24 05/02/24 subcutaneous pen injector weeks #2 mL (Monserrat) potassium chloride 10 mEq 10 meq PO DAILY #90 tabs 03/11/24 05/02/24 tablet,extended release vibegron 75 mg tablet 75 mg PO DAILY #90 tabs 03/11/24 05/02/24 hydroxyurea 500 mg capsule 500 - 1,000 mg (1 - 2 x 500 mg) PO 04/08/24 05/02/24 DAILY #115 caps cephalexin 500 mg capsule 500 mg PO QID 7 days #28 caps 05/02/24 omeprazole 40 mg capsule,delayed 40 mg PO DAILY 2 weeks #14 caps 05/03/24 release Previous Rx's ?Medication ?Instructions ?Recorded blood-glucose meter (Accu-Chek #1 ea 03/17/20 Guide Glucose Meter) insulin syringe-needle U-100 1 mL #180 ea 12/06/20 31 gauge x 5/16 (BD Insulin Syringe Ultra-Fine) blood sugar diagnostic (Accu-Chek #300 strips 11/24/22 Guide test strips) lancets #300 ea 11/24/22 blood-glucose meter,continuous #1 ea 01/02/23 (Dexcom G7 Charrer) blood-glucose sensor (Dexcom G7 #1 ea 01/02/23 Sensor device) apixaban 5 mg tablet (Eliquis) 5 mg PO BID #60 tabs 01/13/24 atorvastatin 40 mg tablet 40 mg PO DAILY #90 tab-caps 01/13/24 chlorthalidone 50 mg tablet 100 mg (2 x 50 mg) PO DAILY #180 01/13/24 tabs duloxetine 30 mg capsule,delayed 30 mg PO DAILY #90 caps 01/13/24 release duloxetine 60 mg capsule,delayed 60 mg PO DAILY #90 caps 01/13/24 release furosemide 20 mg tablet 20 mg PO DAILY #90 tabs 01/13/24 losartan 100 mg tablet 100 mg PO DAILY #90 tabs 01/13/24 metformin 500 mg tablet 500 mg PO BID #180 tabs 01/13/24 ropinirole 8 mg tablet,extended 8 mg PO DAILY #90 tabs 01/13/24 release 24 hr spironolactone 25 mg tablet 25 mg PO DAILY #90 tabs 01/13/24 (Aldactone) insulin degludec 200 unit/mL (3 120 unit (0.6 mL) subcut DAILY 90 02/25/24 mL) subcutaneous pen ( #54 mL FlexTouch U-200 insulin) tirzepatide 2.5 mg/0.5 mL 2.5 mg (0.5 mL) subcut QWEEK 4 02/25/24 subcutaneous pen injector weeks #2 mL (Mounjaro) potassium chloride 10 mEq 10 meq PO DAILY #90 tabs 03/11/24 tablet,extended release vibegron 75 mg tablet 75 mg PO DAILY #90 tabs 03/11/24 hydroxyurea 500 mg capsule 500 - 1,000 mg (1 - 2 x 500 mg) PO 04/08/24 DAILY #115 caps cephalexin 500 mg capsule 500 mg PO QID 7 days #28 caps 05/02/24 omeprazole 40 mg capsule,delayed 40 mg PO DAILY 2 weeks #14 caps 05/03/24 release Allergies Allergy/AdvReac Type Severity Reaction Status Date / Time clopidogrel Allergy Skin Rash Verified 05/02/24 01:03 oxybutynin AdvReac Intermediate Reflex Verified 05/02/24 01:03 propoxyphene AdvReac Nausea Verified 05/02/24 01:03 General Stated Complaint: Abd Prob KIMI: 3 Course Vital Signs Vital signs: Vital Signs Temperature 35.8 C L 05/03/24 16:02 Pulse 70 05/03/24 16:02 Respiratory Rate 15 08/18/24 16:02 Blood Pressure 122/61 05/03/24 16:02 Pulse Oximetry 93 05/03/24 16:02 Temperature 35.8 C L 05/03/24 16:06 Temperature Source Tympanic 05/03/24 16:06 Pulse 70 05/03/24 16:06 Respiratory Rate 15 05/03/24 16:06 Respiratory Effort Normal 05/03/24 16:06 Blood Pressure 122/61 05/03/24 16:06 Blood Pressure Position Sitting 05/03/24 16:06 Pulse Oximetry 93 05/03/24 16:06 Oxygen Delivery Method Room Air 05/03/24 16:06 Oxygen Flow Rate 0 05/03/24 16:06 Pain Level 8 05/03/24 16:06 Medical Decision Making Quality:SDOH Health Related Social Needs: No Data to Display PFSH All Active Problems (Updated 05/03/24 @ 21:00 by Pricilla Rivera MD) Hernia, hiatal (Chronic) Abdominal pain of unknown cause (Acute) Acute UTI (Acute) Right flank discomfort (Acute) Left flank discomfort (Acute) Back pain (Acute) Ulnar neuropathy of both upper extremities (Acute) Bilateral carpal tunnel syndrome (Acute) Renal lesion (Acute) Phlegm in throat (Acute) Hand numbness (Acute) Lipodermatosclerosis (Acute) Bladder leak (Acute) Weight gain (Acute) Rash (Acute) Change in bowel habits (Acute) Peripheral vascular disease (Chronic) S/P right SFA antioplasty an sstenting, 2003. Left DVA to [place] popliteal bypass with [place]-Ruben, 2003. Bypass Left Stent Right 2005 left BKA 08/28 CAD (coronary artery disease) (Chronic) S/P stent 2004 Hypertension (Chronic) Hyperlipidemia (Chronic) Atherosclerosis of [place] coronary artery (Acute) Stent RCA 2007 B12 deficiency (Acute 04/08/15) Cataracts, both eyes (Acute) 11/11/15 OPTICAL EXPRESSIONS; EARLY CATARACTS Essential hypertension (Acute 08/18/13) History of tobacco use (Acute) Hyperlipidemia (Acute 01/14/14) ALEX (obstructive sleep apnea) (Chronic 03/11/18) not on CPAP due to bedroom size Polyp of colon (Acute 09/15/09) 09/25 COLONOSCOPY: ONE TUBULAR ADENOMA AND FOUR HYPERPLASTIC POLYPS. Chronic pain of left lower extremity (Chronic) await electronic organ mechanic recommendations Primary osteoarthritis of right knee (Chronic) RLS (restless legs syndrome) (Chronic) Osteoarthritis of right hip (Chronic) Injection under fluoroscopy: 10/01/2019 Osteoarthritis of right knee (Acute) Steroid Injection: 12/23/2023 Most recent Synvisc injections: 06/24/2023; 04/10/2022; 09/26/2021 She has been provided with Synvisc injections for many years with Dr. Harvey. 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 -hb S/P peripheral artery angioplasty with stent placement Status post below-knee amputation of left lower extremity (2012) History of total right hip replacement (08/03/20) Hx of tubal ligation History of carpal tunnel release Bilaterally Family History Mother , 74 Neoplasm UTERINE Osteoporosis Uterine cancer Lung cancer Father Lung cancer Sister Neoplasm MELANOMA Breast cancer Sister No problems noted. Sister Skin cancer Brother No problems noted. Son Alcohol abuse Depression Maternal Grandfather Stomach cancer Paternal Grandfather No problems noted. Maternal Grandmother No problems noted. Paternal Grandmother No problems noted. Daughter Depression Social History Smoking/Tobacco Use Status: Former Tobacco Use tobacco type: cigarettes Tobacco: How many years used: 37 Second Hand Exposure: Yes Smoking risk assessment performed?: Yes Alcohol Intake: current Alcohol Intake frequency: a few times a month Alcohol type: beer and hard liquor Drug use: Never Substance use type: does not use Caregiver/Support person: No Household members: none Housing: house Do you need help understanding health information?: Rarely current occupation: [employer] Pets and animals: Yes Pets and animals: cat(s) Sexually active: No Do you think of yourself as: straight/heterosexual Current gender identity: female What is your relationship status?: How often do you talk on the phone with friends or family?: three or more times per week How often do you get together with friends or relatives?: decline to answer How often do you attend jewish or judaism services?: 1-3 times per year Do you belong to any clubs or organized social groups?: no Panel score (0-1 are the most socially isolated patients): 2 What type of physical activity do you participate in: none Carmelina/Congregational: Pentecostal Special carmelina needs: No Seatbelt use: always Helmet use: Yes Helmet use: always Drive intox 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 special client bus driver: No Do you feel safe at home: Yes Do you feel safe in your relationship?: Yes Would you like helpful sources: No
[2024-05-03 16:57] LABS: Lactate 1.4 mmol/L (0.6-1.4)
[2024-05-03 17:01] LABS: Abs Immature Grans 0.07 10^3/uL (0.0-0.06); Absolute Basophil Count 0.05 10^3/uL (0.0-0.2); Absolute Eosinophil Count 0.05 10^3/uL (0.0-0.7); Absolute Lymphocyte Count 0.94 10^3/uL (1.2-3.4); Absolute Monocyte Count 0.61 10^3/uL (0.1-0.8); Basophils % 0.5 %; Eosinophils % 0.5 %; HCT 36.1 % (36.0-46.0); HGB 11.3 g/dL (11.2-15.7); Immature Grans % 0.8 %; Lymphocytes % 10.1 %; MCHC 31.3 % (32.0-36.0); MPV 9.8 fL (8.0-11.0); Monocytes % 6.5 %; Neutrophils % 81.6 %; Platelet Count 370 10^3/uL (130-400); RBC 3.14 10^6/uL (3.93-5.22); RDW 14.6 % (11.7-14.6); RDW-SD 61.1 fL; WBC 9.32 10^3/uL (4.4-10.8)
[2024-05-03 17:02] LABS: Bilirubin Negative (Negative); Blood Moderate (Negative); Clarity Sl Cloudy (Clear); Glucose Negative (Negative); Ketones Negative (Negative); Leukocyte Esterase Large (Negative); Nitrite Negative (Negative); Urobilinogen 0.2 mg/dL (Up to 0.2); pH 5.5 (5-8)
[2024-05-03 17:10] LABS: Epithelial Cells Moderate HPF (Negative); WBC 20-50 HPF (0-5)
[2024-05-03 17:11] LABS: Bacteria Negative HPF (Negative); C & S Indicated? No/Sq. Contamination; Crystals Negative HPF (Negative); Mucus Negative (Negative)
[2024-05-03 17:18] LABS: ALT 16 U/L (14-59); AST 16 U/L (15-37); Albumin 3.7 g/dL (3.4-5.0); Alkaline Phosphatase 68 U/L (46-116); Anion Gap 9.7 mmol/L (3-11); BUN 38 mg/dL (7-18); Bilirubin, Total 0.34 mg/dL (0.2-1.0); CO2 27.3 mmol/L (21.0-32.0); CREATININE 1.7 mg/dL (0.55-1.02); Calcium 9.5 mg/dL (8.5-10.1); Chloride 106 mmol/L (98-107); Diff Comment RBC Morph Reviewed; Estimated GFR 31.47 (mL/min/1.73m2); Glucose 84 mg/dL (74-106); Lipase 54 U/L (16-77); Magnesium 1.7 mg/dL (1.8-2.4); Potassium 5.2 mmol/L (3.5-5.1); Sodium 143 mmol/L (136-145); Total Protein 7.4 g/dL (6.4-8.2); Troponin I < 50 ng/L (< or =60)
[2024-05-03 17:19] LABS: MCV 115 fL (80-95); Macrocytosis 2+
[2024-05-03 18:13] LABS: D-Dimer 896 ng/mlFEU (<500)
--- NOTE | 2024-05-03 18:15 | DI.CT_ITS ---
Exam(s) CT CHEST PE CTA EXAM: CT CHEST PE CTA CLINICAL HISTORY: Elevated D-dimer, pleuritic CP. TECHNIQUE: Imaging Protocol: Axial CT angiography was performed with multi-slice acquisition and mu lti-planar reconstructions as well as axial, coronal and sagittal MIP reconstructions. CONTRAST MATERIAL: Intravenous: Omnipaque 350 Contrast volume:100 ml COMPARISON: CT CT CHEST/ABD/PEL WO from 05/02/2024 FINDINGS: Pulmonary Arteries: No evidence of filling defect to suggest pulmonary emboli. Tracheobronchial tree: No mucous plugging. Mediastinum and Tonie: No dominant adenopathy or fluid collection. Pulmonary parenchyma: No consolidation or dominant measurable mass. Pleura: No effusion or pneumothorax. Heart: The heart is not dilated. Mild coronary artery calcifications are seen. Mitral annular calci fications. Aorta: Thoracic aorta non-dilated. No dissection. [id number] atherosclerotic changes. Upper abdomen: No acute findings. Dense barium:. Bones: Left shoulder prosthesis. Tubes, Catheters, and Lines: None Soft tissues: Unremarkable. IMPRESSION: No evidence of pulmonary embolism or other acute abnormality.. RADIATION DOSE DELIVERED: Total DLP DATA REPOSITORY: All CT scans at this facility are submitted to the National Radiology Data Registry (NRDR) Dose Index Registry (DIR) with the [employer] (ACR). RADIATION OPTIMIZATION: All CT scans at this facility use at least one of these dose optimization te chniques: automated exposure control; mA and/or kV adjustment per patient size (includes targeted exa ms where dose is matched to clinical indication); or iterative reconstruction.
[2024-05-03] MEDS: Normal Saline - Diluent 50 ML VIAL IJ (18:42)
[2024-05-03] MEDS: Omnipaque 350 MG/ML 100 ML BTL IJ (18:43)
[2024-05-03 20:18] LABS: Troponin I < 50 ng/L (< or =60)
--- NOTE | 2024-05-03 20:44 | DI.VRAD_ITS ---
PROCEDURE INFORMATION: Exam: CTA Chest With Contrast Exam date and time: 05/03/2024 6:45 PM Age: 73 years old Clinical indication: Other: Elevated d dimer, pleuritic cp TECHNIQUE: Imaging protocol: Computed tomographic angiography of the chest with contrast. Exam focused on the arteries. 3D rendering (Not supervised by radiologist): MIP and/or 3D reconstructed images were created by the technologist. Contrast material: 350; Contrast volume: 100 ml; Contrast route: INTRAVENOUS (IV); COMPARISON: CT CHEST/ABD/PEL WO 05/02/2024 2:22 AM FINDINGS: Tubes, catheters and devices: Left shoulder prosthesis again noted. Pulmonary arteries: Moderate to severe atherosclerotic change present in the vasculature. Aorta: Unremarkable. No aortic aneurysm. No aortic dissection. Lungs: Unremarkable. No consolidation. No masses. Pleural spaces: Unremarkable. No pneumothorax. No pleural effusion. Heart: Mild cardiomegaly unchanged. Coronary arteries: Coronary artery calcifications/stents identified. Lymph nodes: Unremarkable. No enlarged lymph nodes. Gallbladder and biliary ducts: Mild gallbladder distension is unchanged. Gallstone again noted. Kidneys and ureters: Left renal upper pole cyst again seen. Intestine: Beam hardening artifact from dense colonic material is again noted. Bones/joints: Unremarkable. No acute fracture. Soft tissues: Unremarkable. IMPRESSION: No evidence for pulmonary embolus. Dictated and Authenticated by: Arabella Rodas MD. Ordering:CAREN Conway MD
[2024-05-03 21:12] VITALS: BP 150/57; PULSE 67; RESP 18; TEMP 36.7; O2SAT 96
== END 2024-05-03 21:13 | disposition home or self-care (01) ==
PROVIDERS: Emergency Provider Emergency Medicine; PCP Family Medicine
DX: R10.30 Lower abdominal pain, unspecified (principal); E11.9 Type 2 diabetes mellitus without complications
CPT/HCPCS: 36416; 71275; 80053; 82962; 83690; 93005; 99285; 81003; 81015; 83605; 83735; 84484; 85025; 85379; 93010; 99283; J3490

== ENCOUNTER → 2024-05-14 10:07 | Outpatient (BNVA) | payer MEDICARE, BC, SELFPAY | PROVIDERS: PCP Family Medicine; Referring Provider Family Medicine; Visit Provider Student in an Organized Health Care Education/Training Program | DX: G56.03 Carpal tunnel syndrome, bilateral upper limbs (principal); M17.11 Unilateral primary osteoarthritis, right knee | CPT/HCPCS: 99213 ==

== ENCOUNTER → 2024-06-03 13:00 | Outpatient (BNVA) | payer MEDICARE, BC, SELFPAY | PROVIDERS: PCP Family Medicine; Referring Provider Family Medicine; Visit Provider Student in an Organized Health Care Education/Training Program | DX: M75.101 Unspecified rotator cuff tear or rupture of right shoulder, not specified as traumatic (principal); M12.811 Other specific arthropathies, not elsewhere classified, right shoulder | CPT/HCPCS: 99213 ==

== ENCOUNTER 2024-06-24 10:30 | Day surgery (SDC) | payer MEDICARE, BC, SELFPAY ==
[2024-06-24 10:47] VITALS: BP 166/47; PULSE 79; RESP 20; TEMP 36.3; O2SAT 98
--- NOTE | 2024-06-24 10:53 | PDOC.DSDIS_ITS ---
Date of service: 06/24/24 Time of Service: 10:53 Discharge Plan Disposition Patient Disposition: Home Condition: Good Discharge Details Reason For Visit: B/L ECTR Attending Provider: Zurdo Carlson Primary Care Provider: Gui Graham Home Meds and New Rx's Prescriptions: New hydrocodone-acetaminophen 5-325 mg tablet 1 tab PO Q6H PRN (Reason: pain) Qty: 6 0RF acetaminophen 500 mg tablet 1,000 mg PO TID Qty: 90 0RF ibuprofen 600 mg tablet 600 mg PO TID PRN (Reason: pain) Qty: 90 0RF Continued carvedilol 12.5 mg tablet 12.5 mg PO BID Rx Instructions: must administer with a meal/food Mounjaro 2.5 mg/0.5 mL pen injector 2.5 mg subcut QWEEK MDD 2.5 28 Days Qty: 2 12RF Rx Instructions: Inject 2.5 mg subcutaneously once weekly as directed. (DME) Dexcom G7 Marketing Copywriter Misc See Rx Instructions .Route Qty: 1 0RF Rx Instructions: As directed (DME) Dexcom G7 Sensor Device See Rx Instructions .Route Qty: 1 11RF Rx Instructions: As directed vibegron 75 mg tablet 75 mg PO DAILY Qty: 90 3RF Rx Instructions: per [facility] gyne, for urge incontinence potassium chloride 10 mEq tablet extended release 10 meq PO DAILY Qty: 90 3RF buprenorphine [Butrans] 5 mcg/hour patch weekly 1 patch transdermal Q7D Qty: 4 0RF (DME) blood-glucose meter [Accu-Chek Guide Glucose Meter] Misc See Rx Instructions .ROUTE .MEDSUPPLY Qty: 1 0RF Rx Instructions: test as directed (DME) insulin syringe-needle U-100 [BD Insulin Syringe Ultra-Fine] 1 mL 31 gauge x 5/16 syringe See Rx Instructions .ROUTE .MEDSUPPLY Qty: 180 3RF Rx Instructions: 1 injection sq BID aspirin [Adult Aspirin Regimen] 81 mg tablet,delayed release (DR/EC) 325 mg PO DAILY folic acid 1 mg tablet 1 mg PO DAILY (DME) Accu-Chek Guide test strips Strip 1 ea Miscellaneous DAILY Qty: 300 3RF Rx Instructions: test 3 x day (DME) lancets Misc 1 ea Miscellaneous DAILY Qty: 300 3RF Rx Instructions: test 3 x /day magnesium 250 mg tablet 500 mg PO QHS Eliquis 5 mg tablet 5 mg PO BID Qty: 60 11RF Rx Instructions: Per discharge from [facility] on 05/18/2022 atorvastatin 40 mg tablet 40 mg PO DAILY Qty: 90 3RF chlorthalidone 50 mg tablet 100 mg PO DAILY Qty: 180 3RF duloxetine 60 mg capsule,delayed release(DR/EC) 60 mg PO DAILY Qty: 90 3RF duloxetine 30 mg capsule,delayed release(DR/EC) 30 mg PO DAILY Qty: 90 3RF Rx Instructions: take with a 60 mg capsule to equal 90 mg/day furosemide 20 mg tablet 20 mg PO DAILY Qty: 90 3RF losartan 100 mg tablet 100 mg PO DAILY Qty: 90 3RF metformin 500 mg tablet 500 mg PO BID Qty: 180 3RF ropinirole 8 mg tablet extended release 24 hr 8 mg PO DAILY Qty: 90 3RF spironolactone [Aldactone] 25 mg tablet 25 mg PO DAILY Qty: 90 3RF hydroxyurea 500 mg capsule 500 - 1,000 mg PO DAILY Qty: 115 3RF Rx Instructions: 500 mg/day except take 1000 mg Sat and Saturday insulin degludec [Tresiba FlexTouch U-200] 200 unit/mL (3 mL) insulin pen 120 unit subcut HS Rx Instructions: Inject 120 units subcutaneously once daily as directed Discharge Instructions Stand Alone Forms: Aldo Saini Tunnel Release Referrals: Zurdo Carlson MD [ [facility] STAFF PHYSICIAN] - Activity:: Activity as Tolerated Remove Dressings/Wound Care:: 48 hours Shower/Bathe:: 48 hours Diet:: As Tolerated Discharge Orders Discharge Orders: Discharge Order (Routine); Ordered 06/24/24 Ordered By: Jassi Diana DS: Diagnosis Discharge Diagnosis (1) Bilateral carpal tunnel syndrome: Status: Acute
[2024-06-24] MEDS: Lactated Ringers 1,000 ML 80 ML IV (10:55)
--- NOTE | 2024-06-24 11:53 | W.ANESPRE ---
General Info Date of Service Date Performed: 06/24/24 Height: 5 ft 10 in Weight: 110.6 kg Body Mass Index (BMI): 34.9 Surgical Procedure: Operation Date: 06/24/24 13:10 Proposed Procedure Side Surgeon p Wrist ECTR Bilateral Bilateral Zurdo Carlson MD s Knee Injection Right Zurdo Carlson MD Meds Allergies and Home Medications Allergies Allergy/AdvReac Type Severity Reaction Status Date / Time clopidogrel Allergy Skin Rash Verified 06/24/24 11:02 oxybutynin AdvReac Intermediate Reflex Verified 06/24/24 11:02 propoxyphene AdvReac Nausea Verified 06/24/24 11:02 Home Medication ?Medication ?Instructions ?Recorded blood-glucose meter (Accu-Chek #1 ea 03/17/20 Guide Glucose Meter) insulin syringe-needle U-100 1 mL #180 ea 12/06/20 31 gauge x 5/16 (BD Insulin Syringe Ultra-Fine) aspirin 81 mg tablet,delayed 325 mg PO DAILY 06/05/22 release (Adult Aspirin Regimen) folic acid 1 mg tablet 1 mg PO DAILY 06/05/22 blood sugar diagnostic (Accu-Chek #300 strips 11/24/22 Guide test strips) lancets #300 ea 11/24/22 blood-glucose meter,continuous #1 ea 01/02/23 (Dexcom G7 Process Engineering Technician) blood-glucose sensor (Dexcom G7 #1 ea 01/02/23 Sensor device) magnesium 250 mg tablet 500 mg PO QHS 07/01/23 carvedilol 12.5 mg tablet 12.5 mg PO BID 12/23/23 apixaban 5 mg tablet (Eliquis) 5 mg PO BID #60 tabs 01/13/24 atorvastatin 40 mg tablet 40 mg PO DAILY #90 tab-caps 01/13/24 chlorthalidone 50 mg tablet 100 mg (2 x 50 mg) PO DAILY #180 01/13/24 tabs duloxetine 30 mg capsule,delayed 30 mg PO DAILY #90 caps 01/13/24 release duloxetine 60 mg capsule,delayed 60 mg PO DAILY #90 caps 01/13/24 release furosemide 20 mg tablet 20 mg PO DAILY #90 tabs 01/13/24 losartan 100 mg tablet 100 mg PO DAILY #90 tabs 01/13/24 metformin 500 mg tablet 500 mg PO BID #180 tabs 01/13/24 ropinirole 8 mg tablet,extended 8 mg PO DAILY #90 tabs 01/13/24 release 24 hr spironolactone 25 mg tablet 25 mg PO DAILY #90 tabs 01/13/24 (Aldactone) tirzepatide 2.5 mg/0.5 mL 2.5 mg (0.5 mL) subcut QWEEK 4 02/25/24 subcutaneous pen injector weeks #2 mL (Mounjaro) potassium chloride 10 mEq 10 meq PO DAILY #90 tabs 03/11/24 tablet,extended release vibegron 75 mg tablet 75 mg PO DAILY #90 tabs 03/11/24 hydroxyurea 500 mg capsule 500 - 1,000 mg (1 - 2 x 500 mg) PO 04/08/24 DAILY #115 caps buprenorphine 5 mcg/hour weekly 1 patch transdermal Q7D #4 ea 06/23/24 transdermal patch (Butrans) insulin degludec 200 unit/mL (3 120 unit subcut HS 06/23/24 mL) subcutaneous pen (Tresiba FlexTouch U-200 insulin) acetaminophen 500 mg tablet 1,000 mg (2 x 500 mg) PO TID #90 06/24/24 tabs hydrocodone 5 mg-acetaminophen 325 1 tab PO Q6H PRN pain #6 tabs 06/24/24 mg tablet ibuprofen 600 mg tablet 600 mg PO TID PRN pain #90 tabs 06/24/24 Current Visit Medications: Current Medications Generic Name Dose Route Start Last Admin Trade Name Freq PRN Reason Stop Dose Admin Acetaminophen 650 mg 06/24/24 10:52 Acetaminophen 325 Mg Tab PO 07/24/24 10:51 Q4H PRN PRN Hydrocodone Bitart/Acetaminophen 0 tab 06/24/24 10:52 Hydrocodone 5/Acetaminophen 325 Tab PO 07/24/24 10:51 Q3H PRN PRN Pain Ringer's Solution 1,000 mls @ 80 mls/hr 06/24/24 06:00 06/24/24 10:55 IV 06/24/24 23:59 80 mls/hr INFUSION RAMON Administration Cefazolin Sodium/Dextrose 2 gm in 50 mls @ 100 mls/hr 06/24/24 06:00 Ancef Duplex IVPB 06/24/24 23:59 PREOP RAMON IV Miscellaneous Supplies 1 each 06/24/24 06:00 Iv Access IV 06/24/24 23:59 DIRECTED RAMON Sodium Chloride 0 ml 06/24/24 06:00 Normal Saline Flush 10 Ml Syr IV 06/24/24 23:59 PRN PRN Sodium Chloride 0 ml 06/24/24 06:00 Normal Saline 10 Ml Vial IJ 06/24/24 23:59 DIRECTED PRN Sterile Water 0 ml 06/24/24 06:00 Water,Injection,Sterile 10 Ml Vial IJ 06/24/24 23:59 DIRECTED PRN PFSH Active Problems Active Problems: Problem Status Onset Code Ulnar neuropathy of both upper extremities Acute G56.23 Bilateral carpal tunnel syndrome Acute G56.03 Renal lesion Acute N28.9 Phlegm in throat Acute R09.89 Hand numbness Acute R20.0 Lipodermatosclerosis Acute M79.3 Bladder leak Acute R32 Weight gain Acute R63.5 Rash Acute R21 Change in bowel habits Acute R19.4 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 Essential thrombocythemia Acute D47.3 Type 2 diabetes mellitus with circulatory disorder, with long-term current use of insulin Acute E11.59, Z79.4 Rotator cuff tear arthropathy of right shoulder Acute M75.101, M12.811 Rotator cuff tear arthropathy of left shoulder Acute M75.102, M12.812 Fatigue Acute R53.83 Osteoarthritis of right knee Acute M17.11 Osteoarthritis of right hip Chronic M16.11 RLS (restless legs syndrome) Chronic G25.81 Primary osteoarthritis of right knee Chronic M17.11 Chronic pain of left lower extremity Chronic M79.605, G89.29 Polyp of colon Acute 09/15/09 K63.5 ALEX (obstructive sleep apnea) Chronic 03/11/18 G47.33 Hyperlipidemia Acute 14 E78.5 History of tobacco use Acute Z87.891 Essential hypertension Acute 08/18/13 I10 Cataracts, both eyes Acute H26.9 B12 deficiency Acute 04/08/15 E53.8 Atherosclerosis of [place] coronary artery Acute I25.10 Hyperlipidemia Chronic E78.5 Hypertension Chronic I10 CAD (coronary artery disease) Chronic I25.10 Peripheral vascular disease Chronic I73.9 Medical History Medical History Atrial fibrillation Fracture, femur closed, shaft (05/13/22) (L) Carpal tunnel syndrome (05/16/09) Hypertension History of tobacco abuse Quit 2004 Surgical History Surgical History (Updated 06/24/24 @ 11:03 by Cesia Aaron RN) History of left hip replacement History of total replacement of left shoulder joint 02/08/23. -hb S/P peripheral artery angioplasty with stent placement Status post below-knee amputation of left lower extremity (2012) History of total right hip replacement (08/03/20) Hx of tubal ligation History of carpal tunnel release Bilaterally Tobacco Smoking/Tobacco Use Status: Former Tobacco Use Passive smoking exposure: Yes Second hand exposure: Yes Alcohol Alcohol Intake: current Alcohol intake frequency: a few times a month Alcohol type: beer and hard liquor Substance Use Substance use: Never Substance use type: does not use Details: Patient drank a alcoholic beverage yesterday (06/23) Vital Signs and Lab Results Vital Signs Most Recent Vital Signs in EMR: Most Recent Vital Signs Temp Pulse Resp BP Pulse Ox 36.3 C L 79 20 166/47 H 98 06/24/24 10:47 06/24/24 10:47 06/24/24 10:47 06/24/24 10:47 06/24/24 10:47 Point of Care Results Point of Care Results: Finger Stick Blood Glucose 78 06/24/24 10:40 Lab Results Blood Type / Crossmatch: No Data to Display Complete Blood Count: No Data to Display Complete Metabolic Panel: Hemoglobin A1c 6.1 % (4.5-5.7) H 06/23/24 17:00 Liver Function Panel: No Data to Display Coagulation Panel: No Data to Display Cardiac Panel: No Data to Display Arterial Blood Gas: No Data to Display Venous Blood Gas: No Data to Display Pancreas Panel: No Data to Display Thyroid Panel: No Data to Display Infectious Disease: No Data to Display Blood Cultures: No Data to Display Toxicology Panel: No Data to Display Imaging and Studies Imaging and Studies Study information below may be from another EMR and interpreted by another provider. Please see original notes in EMR for more complete details. EKG Summary: 04/2024:Conclusion Sinus rhythm PACs No STEMI Stress Test Summary: 05/07:MPI Conclusion Normal myocardial perfusion without evidence of ischemia or prior infarction EF is 59% with normal wall motion Echocardiogram Summary: Date of study: 08/22/2017 Transthoracic Echocardiography M-mode, complete 2D, complete spectral Doppler, and color Doppler *STUDY CONCLUSIONS* Summary: 1. Left ventricle: The cavity size was normal. Wall thickness was increased in a pattern of mild LVH. Systolic function was hyperdynamic. The estimated ejection fraction was 65-70%. There was an increased relative contribution of atrial contraction to ventricular filling. The tissue Doppler parameters were abnormal. Some parameters suggest diastolic dysfunction grade 1. There was no evidence of elevated ventricular filling pressure by Doppler parameters. 2. Mitral valve: There was mild regurgitation. 3. Left atrium: The atrium was mildly dilated. 4. Right ventricle: The cavity size was normal. Wall thickness was normal. Systolic function was normal. 5. Atrial septum: No defect or patent foramen ovale was identified. 6. Pulmonary arteries: Pulmonary systolic pressure was in the range of 15mm Hg to 25mm Hg. 7. Inferior vena cava: The vessel was patent and normal in size. The respirophasic diameter changes were in the normal range (greater than or equal to 50%), consistent with normal central venous pressure. Anesthesia Assessment and Plan Anesthesia History Personal History: No History of Anesthesia Complications Family History: No Family History of Anesthesia Complications Exercise Tolerance Exercise Tolerance: Metabolic Equivalents>4 Pertinent Negatives Pertinent Negatives: No Symptoms of GERD Cardiac & Pulmonary Exam Cardiac Exam: Normal S1/S2 Heart Sounds Pulmonary Exam: Clear Bilateral Breath Sounds Implantable Cardiac Device Does patient have a Pacemaker or an ICD?: No Airway Exam Known Difficult Airway: No Mallampati Class: 2 Mouth Opening: Normal (> 3cm) Thyromental Distance: Less than 3 cm Neck Range of Motion: Full ROM Neck Circumference: Normal Teeth Condition: Removable Dentures/Plates Upper and Removable Dentures/Plates Lower ASA Classification ASA Score: ASA 3 Emergency Case?: No NPO Status NPO Status: NPO Clears >2 hours, Solids >8 hours Anesthesia Plan Resuscitation Status: Full Code Anesthesia Technique: General Anesthesia Airway Planned: Natural Airway Monitors Used: Standard Monitors Preoperative Comments:: 73 yo female with CKD stage 3, CAD/HTN/Hyperlipidemia with RCA stent in 2004 and an episode of Afib in 2021 after femur fracture, Left BKA in 2012, then fem/pop bypass in 2014 due to PAD. Leg wounds in right due to PAD currently being treated at [facility]. Diabetic on insulin and will follow given her last reading in the 70's.
[2024-06-24] MEDS: Dextrose 50%-Water 25 GM/50 ML SYR IVP (12:29)
[2024-06-24 12:54] VITALS: BMI 34.9
--- NOTE | 2024-06-24 13:54 | W.PREOPHP ---
Assessment and Plan Assessment and plan (1) Bilateral carpal tunnel syndrome: Status: Acute (2) Osteoarthritis of right knee: Status: Acute Assessment and plan: Emilia is a 73-year-old female with bilateral carpal tunnel syndrome. She is here today for carpal tunnel releases. I reviewed the procedure with her. I discussed the risk to include continued numbness, bleeding, infection, pain, stiffness, damage to nerves and vessels, damage to muscle and tendons, inflammatory change. Despite these risk, she elects to proceed. I also offered an injection of the right knee which she has had before. History of Present Illness History of Present Illness Chief Complaint: Bilaterl Hand Numbness and Right Knee Arthritis Narrative: Emilia is a 73-year-old female who have seen previously for carpal tunnel syndrome about both hands. Given the ongoing symptoms and the numbness and the tingling, she elects to proceed with carpal tunnel release. He is here today for the procedure. She denies any changes to her health. She has ongoing issues with the wound about her right leg with history of vascular compromise. This has been chronic in nature and is being followed by vascular surgery and wound care. She has known arthritis about the right knee and is done well with injection before. She desires an injection today. Review of Systems All systems reviewed & are unremarkable except as noted in HPI and below PFSH All Active Problems Ulnar neuropathy of both upper extremities (Acute) Bilateral carpal tunnel syndrome (Acute) Renal lesion (Acute) Phlegm in throat (Acute) Hand numbness (Acute) Lipodermatosclerosis (Acute) Bladder leak (Acute) Weight gain (Acute) Rash (Acute) Change in bowel habits (Acute) 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) Essential thrombocythemia (Acute) Managed at [facility] with Hydrea Type 2 diabetes mellitus with circulatory disorder, with long-term current use of insulin (Acute) Rotator cuff tear arthropathy of right shoulder (Acute) DEPO MEDROL 11/09/22 Rotator cuff tear arthropathy of left shoulder (Acute) Fatigue (Acute) Osteoarthritis of right knee (Acute) Steroid Injection: 12/23/2023 Most recent Synvisc injections: 06/24/2023; 04/10/2022; 09/26/2021 She has been provided with Synvisc injections for many years with Dr. Harvey. Osteoarthritis of right hip (Chronic) Injection under fluoroscopy: 10/01/2019 RLS (restless legs syndrome) (Chronic) Primary osteoarthritis of right knee (Chronic) Chronic pain of left lower extremity (Chronic) await hydrogen cell tender recommendations Polyp of colon (Acute 09/15/09) 09/25 COLONOSCOPY: ONE TUBULAR ADENOMA AND FOUR HYPERPLASTIC POLYPS. ALEX (obstructive sleep apnea) (Chronic 03/11/18) not on CPAP due to bedroom size Hyperlipidemia (Acute 01/14/14) History of tobacco use (Acute) Essential hypertension (Acute 08/18/13) Cataracts, both eyes (Acute) 11/11/15 OPTICAL EXPRESSIONS; EARLY CATARACTS B12 deficiency (Acute 04/08/15) Atherosclerosis of [place] coronary artery (Acute) Stent RCA 2006 Hyperlipidemia (Chronic) Hypertension (Chronic) CAD (coronary artery disease) (Chronic) S/P stent 2004 Peripheral vascular disease (Chronic) S/P right SFA antioplasty an sstenting, 2003. Left DVA to [place] popliteal bypass with Mcpherson-Ruben, 2003. Bypass Left Stent Right 2006 left BKA 08/28 Medical History Atrial fibrillation Fracture, femur closed, shaft (05/13/22) (L) Carpal tunnel syndrome (05/16/09) Hypertension History of tobacco abuse Quit 2004 Surgical History History of left hip replacement History of total replacement of left shoulder joint 02/08/23. -hb S/P peripheral artery angioplasty with stent placement Status post below-knee amputation of left lower extremity (2012) History of total right hip replacement (08/03/20) Hx of tubal ligation History of carpal tunnel release Bilaterally Family History Mother , 74 Neoplasm UTERINE Osteoporosis Uterine cancer Lung cancer Father Lung cancer Sister Neoplasm MELANOMA Breast cancer Sister No problems noted. Sister Skin cancer Brother No problems noted. Son Alcohol abuse Depression Maternal Grandfather Stomach cancer Paternal Grandfather No problems noted. Maternal Grandmother No problems noted. Paternal Grandmother No problems noted. Daughter Depression Social History Smoking/Tobacco Use Status: Former Tobacco Use tobacco type: cigarettes Quit Date: 09/16/04 Tobacco: How many years used: 37 Second Hand Exposure: Yes Smoking risk assessment performed?: Yes Alcohol Intake: current Alcohol Intake frequency: a few times a month Alcohol type: beer and hard liquor Drug use: Never Substance use type: does not use Details: Patient drank a alcoholic beverage yesterday (06/23) Caregiver/Support person: No Household members: none Housing: house Do you need help understanding health information?: Rarely current occupation: [employer] Pets and animals: Yes Pets and animals: cat(s) Sexually active: No Do you think of yourself as: straight/heterosexual Current gender identity: female What is your relationship status?: How often do you talk on the phone with friends or family?: three or more times per week How often do you get together with friends or relatives?: decline to answer How often do you attend hinduism or alevism services?: 1-3 times per year Do you belong to any clubs or organized social groups?: no Panel score (0-1 are the most socially isolated patients): 2 What type of physical activity do you participate in: none Carmelina/Mosque: Buddhist Special carmelina needs: No Seatbelt use: always Helmet use: Yes Helmet use: always Drive intox 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 newspaper delivery driver: No Do you feel safe at home: Yes Do you feel safe in your relationship?: Yes Would you like helpful sources: No Meds Allergies and Home Medications Allergies Allergy/AdvReac Type Severity Reaction Status Date / Time clopidogrel Allergy Skin Rash Verified 06/24/24 11:02 oxybutynin AdvReac Intermediate Reflex Verified 06/24/24 11:02 propoxyphene AdvReac Nausea Verified 06/24/24 11:02 Home Medications ?Medication ?Instructions ?Recorded ?Confirmed ?Type blood-glucose meter (Accu-Chek #1 ea 03/17/20 06/23/24 Rx Guide Glucose Meter) insulin syringe-needle U-100 1 mL #180 ea 12/06/20 06/23/24 Rx 31 gauge x 5/16 (BD Insulin Syringe Ultra-Fine) aspirin 81 mg tablet,delayed 325 mg PO DAILY 06/05/22 06/23/24 History release (Adult Aspirin Regimen) folic acid 1 mg tablet 1 mg PO DAILY 06/05/22 06/24/24 History blood sugar diagnostic (Accu-Chek #300 strips 11/24/22 06/23/24 Rx Guide test strips) lancets #300 ea 11/24/22 06/23/24 Rx blood-glucose meter,continuous #1 ea 01/02/23 06/23/24 Rx (Dexcom G7 Recruiter Account Manager) blood-glucose sensor (Dexcom G7 #1 ea 01/02/23 06/23/24 Rx Sensor device) magnesium 250 mg tablet 500 mg PO QHS 07/01/23 06/24/24 History carvedilol 12.5 mg tablet 12.5 mg PO BID 12/23/23 06/24/24 History apixaban 5 mg tablet (Eliquis) 5 mg PO BID #60 tabs 01/13/24 06/23/24 Rx atorvastatin 40 mg tablet 40 mg PO DAILY #90 tab-caps 01/13/24 06/24/24 Rx chlorthalidone 50 mg tablet 100 mg (2 x 50 mg) PO DAILY #180 01/13/24 06/24/24 Rx tabs duloxetine 30 mg capsule,delayed 30 mg PO DAILY #90 caps 01/13/24 06/24/24 Rx release duloxetine 60 mg capsule,delayed 60 mg PO DAILY #90 caps 01/13/24 06/24/24 Rx release furosemide 20 mg tablet 20 mg PO DAILY #90 tabs 01/13/24 06/24/24 Rx losartan 100 mg tablet 100 mg PO DAILY #90 tabs 01/13/24 06/24/24 Rx metformin 500 mg tablet 500 mg PO BID #180 tabs 01/13/24 06/24/24 Rx ropinirole 8 mg tablet,extended 8 mg PO DAILY #90 tabs 01/13/24 06/24/24 Rx release 24 hr spironolactone 25 mg tablet 25 mg PO DAILY #90 tabs 01/13/24 06/24/24 Rx (Aldactone) tirzepatide 2.5 mg/0.5 mL 2.5 mg (0.5 mL) subcut QWEEK 4 02/25/24 06/23/24 Rx subcutaneous pen injector weeks #2 mL (Mounjaro) potassium chloride 10 mEq 10 meq PO DAILY #90 tabs 03/11/24 06/24/24 Rx tablet,extended release vibegron 75 mg tablet 75 mg PO DAILY #90 tabs 03/11/24 06/24/24 Rx hydroxyurea 500 mg capsule 500 - 1,000 mg (1 - 2 x 500 mg) PO 04/08/24 06/24/24 Rx DAILY #115 caps buprenorphine 5 mcg/hour weekly 1 patch transdermal Q7D #4 ea 06/23/24 06/24/24 Rx transdermal patch (Butrans) insulin degludec 200 unit/mL (3 120 unit subcut HS 06/23/24 06/24/24 History mL) subcutaneous pen (Tresiba FlexTouch U-200 insulin) acetaminophen 500 mg tablet 1,000 mg (2 x 500 mg) PO TID #90 06/24/24 Rx tabs hydrocodone 5 mg-acetaminophen 325 1 tab PO Q6H PRN pain #6 tabs 06/24/24 Rx mg tablet ibuprofen 600 mg tablet 600 mg PO TID PRN pain #90 tabs 06/24/24 Rx Exam Const General: cooperative, healthy appearing, comfortable and no acute distress Resp Effort & Inspection: normal respiratory effort Auscultation: clear to auscultation bilaterally Cardio Rate: regular rate Rhythm: regular rhythm Results Last Vital Signs Temp 36.3 C L 06/24/24 10:47 Pulse 79 06/24/24 10:47 Resp 20 06/24/24 10:47 BP 166/47 H 06/24/24 10:47 Pulse Ox 98 06/24/24 10:47
[2024-06-24] MEDS: ceFAZolin 2 GM/50 ML BAG IVPB (14:03)
[2024-06-24] MEDS: methylPREDNISolone ACETATE 80 MG/ML VIAL (14:15)
[2024-06-24] MEDS: Lidocaine 1% Multi-Dose W/EPI 1/100,000 50 ML VIAL (14:15)
[2024-06-24] MEDS: Bupivacaine 0.5% Pres-Free 30 ML VIAL (14:15)
[2024-06-24 14:37] VITALS: BP 127/51; PULSE 72; RESP 16; TEMP 36.3; O2SAT 98
--- NOTE | 2024-06-24 14:50 | W.ANESPOSTOP ---
Postoperative Evaluation Date, Time and Location Date Performed: 06/24/24 Time Performed: 14:50 Patient Location: Day Surgery Unit Vital Signs Most Recent Imported Vital Signs: Most Recent Vital Signs Temp Pulse Resp BP Pulse Ox 36.3 C L 72 16 127/51 L 98 06/24/24 14:37 06/24/24 14:37 06/24/24 14:37 06/24/24 14:37 06/24/24 14:37 Pain Score Most Recent Pain Score: Most Recent Pain Score Pain Level 06/24/24 14:37 Assessment Mental Status: Awake (Alert & Oriented to Patient Baseline) Airway and Respiratory Function: Patent airway with normal (patient baseline) respiratory exam Cardiovascular Function: Hemodynamically Stable Hydration Status: Adequately Hydrated Nausea & Vomiting: No Nausea or Vomiting Pain: Pt. Denies Any Pain Peripheral Nerve Block: Patient did not receive a nerve block Postoperative Comments:: Pt. required 2 separate doses of Dextrose 50% for blood glucose into 60's. Currently 132. Will give juice and a turkey sandwich before discharge.
[2024-06-24 15:07] VITALS: BP 143/46; PULSE 71; RESP 16; TEMP 36.2; O2SAT 95
--- NOTE | 2024-06-24 21:00 | ROE_ITS ---
Date of service: 06/24/24 Time of Service: 14:00 Operative Note Operative Note DATE OF PROCEDURE: 06/24/24 PRE-OP DIAGNOSIS: Bilateral Carpal Tunnel Syndrome Right Knee Arthritis POST-OP DIAGNOSIS: same PROCEDURE: Bilateral Endoscopic Carpal Tunnel Release Right Knee Injection SURGEON: Zurdo Carlson ANESTHESIA TYPE: General:No Airway Refer to Anesthesia Record ESTIMATED BLOOD LOSS: 0 PATHOLOGY: none sent TOURNIQUET TIME: 4 COMPLICATIONS: None Patient was transported to: same day Patient's condition: stable Indications: I have seen Emilia in clinic for symptoms of carpal tunnel syndrome. The numbness, tingling, and pain limited function. Clinical exam findings with nerve conduction tests confirmed the diagnosis of carpal tunnel syndrome, recurrebnt. Nonoperative measures such as bracing, time, activity modifications had been tried but disability and pain persisted. I discussed carpal tunnel release with the patient. I reviewed the risks of the procedure to include, but not limited to, bleeding, infection, pain, stiffness, incomplete release, damage to nerves or vessels, persistent numbness, recurrence. Despite these risks, the patient elected to proceed. She also has ongoing to right knee pain from arthritis which has responded previously to injections and thus repeat injection was performed. Findings: There was tightened carpal tunnel. This was dilated and released successfully with the endoscopic with increased space within the tunnel. The antebrachial fascia was released proximally freeing the median nerve at the wrist on both wrists. The right knee was injected. Procedure Description: Emilia was greeted in the preoperative holding area where the correct side was identified and marked. The consent was reviewed with the patient and signed. The history and physical was updated. All questions were answered. She was taken back to the operating room. The patient was placed into the supine position on the operating room table with both arms on arm boards. A nonsterile tourniquet was placed high onto the left arm; no tourniquet was used on the right side. All bony prominences were well padded. Prophylactic antibiotics in the form of Cefazolin were administered. Both arms were prepped with Chloraprep and draped in a standard fashion with stockinette and extremity drape. The surgical site was marked in the volar wrist creases in line with the radial border of the fourth ray. This area was anesthetized with approximately 6cc of 1% Lidocaine. The limb was then exsanguinated with an Esmarch. The skin was incised with a 15 blade, approximately 1cm. The skin only was cut and the deeper tissue was dissected bluntly with a tenotomy scissor, avoiding passing nerve and venous structures. The fascia was penetrated and opened bluntly. A two-prong skin hook was placed under this proximal fascial edge. A series of hamate finders were used to identify and dilate the carpal tunnel. Synovial elevator was used to free synovial attachments to the underside of the transverse carpal ligament. My thumb was kept in the palm to mak the distal extent of the carpal tunnel and correctly position the hand. The Microaire endoscope was inserted without difficulty and without resistance. Excellent visualization showed horizontally running fibers of the transverse carpal ligament (TCL). The distal extent of the TCL was visualized and the end of the scope palpated with the thumb. The blade was elevated and withdrawn from distal to proximal. The TCL was split into two flaps. The endoscope was reinserted to confirm complete release and any remnant ligament was incised. The scope was withdrawn and the proximal aspect of the carpal tunnel was grossly inspected and appeared release with the median nerve visible. The antebrachial fascia at the level of the wrist was then freed from the overlying skin and then the underlying median nerve with blunt dissection. This was transected longitudinally for about 3cm proximal to the wrist incision. The wound was then irrigated with easy flow of irrigant distally and proximally. The incision was closed with a single 4-0 Nylon suture. The wound was dressed with Xeroform, Gauze, Kerlix and Charlie. The tourniquet was deflated with the initial dressing and held with some pressure. Attention was then turned to the right arm. The surgical site was marked in the volar wrist creases in line with the radial border of the fourth ray. This area was anesthetized with approximately 6cc of 1% Lidocaine. The skin was incised with a 15 blade, approximately 1cm. The skin only was cut and the deeper tissue was dissected bluntly with a tenotomy scissor, avoiding passing nerve and venous structures. The fascia was penetrated and opened bluntly. A two-prong skin hook was placed under this proximal fascial edge. A series of hamate finders were used to identify and dilate the carpal tunnel. Synovial elevator was used to free synovial attachments to the underside of the transverse carpal ligament. My thumb was kept in the palm to mak the distal extent of the carpal tunnel and correctly position the hand. The Microaire endoscope was inserted without difficulty and without resistance. Excellent visualization showed horizontally running fibers of the transverse carpal ligament (TCL). The distal extent of the TCL was visualized and the end of the scope palpated with the thumb. The bl kayla was elevated and withdrawn from distal to proximal. The TCL was split into two flaps. The endoscope was reinserted to confirm complete release and any remnant ligament was incised. The scope was withdrawn and the proximal aspect of the carpal tunnel was grossly inspected and appeared release with the median nerve visible. The antebrachial fascia at the level of the wrist was then freed from the overlying skin and then the underlying median nerve with blunt dissection. This was transected longitudinally for about 3cm proximal to the wrist incision. The wound was then irrigated with easy flow of irrigant distally and proximally. The incision was closed with a single 4-0 Nylon suture. The wound was dressed with Xeroform, Gauze, Kerlix and Charlie. No tourniquet was used on this side. Blood flow returned easily to all digits with capillary refill less than 2 seconds. The right knee injection was then performed. The superolateral border of the patella/knee was prepped with Chloraprep. I then injected the knee with 6cc of 0.5% bupivicaine and 80mg of Depo-Medrol. Hemostasis was obtained and a bandaid was applied. The patient tolerated the procedure well and was returned to the Same Day Surgery area in a stable condition suffering no known complication.
== END 2024-06-24 15:47 | disposition home or self-care (01) ==
PROVIDERS: PCP Family Medicine; Visit Provider Student in an Organized Health Care Education/Training Program
PROC: 01N54ZZ Release Median Nerve, Percutaneous Endoscopic Approach (ICD-10-PCS; CPT 29848; principal; 2024-06-24 13:00)
PROC: (CPT 20610; 2024-06-24 13:00)
DX: G56.03 Carpal tunnel syndrome, bilateral upper limbs (principal); M17.11 Unilateral primary osteoarthritis, right knee
CPT/HCPCS: 20610; 29848; J0665; J0690; J1010; J2004; J2405; J2704

== ENCOUNTER → 2024-07-06 10:36 | Outpatient (BNVA) | payer MEDICARE, BC, SELFPAY | PROVIDERS: PCP Family Medicine; Referring Provider Family Medicine; Visit Provider Student in an Organized Health Care Education/Training Program | DX: Z47.89 Encounter for other orthopedic aftercare (principal); M25.531 Pain in right wrist | CPT/HCPCS: 99024 ==

== ENCOUNTER → 2024-08-10 10:33 | Outpatient (BNVA) | payer MEDICARE, BC, SELFPAY | PROVIDERS: PCP Family Medicine; Referring Provider Family Medicine; Visit Provider Student in an Organized Health Care Education/Training Program | DX: Z47.89 Encounter for other orthopedic aftercare (principal); G56.03 Carpal tunnel syndrome, bilateral upper limbs | CPT/HCPCS: 99024 ==

== ENCOUNTER 2024-09-06 10:36 | Observation (INO) | payer MEDICARE, BC, SELFPAY ==
[2024-09-06] VITALS (57 sets, daily range): BP systolic 107–161; BP diastolic 20–74; PULSE 59–82; RESP 9–28; TEMP 35.9–36.6; O2SAT 82–99
--- NOTE | 2024-09-06 10:45 | RT.EKG_ITS ---
APPROVED REPORT Exam: Resting ECG Reason for Exam: confusion, cardiac history, palpitations Patient Location: E HR:66 bpm ECG Measurements Heart Rate 66 AXIS PA 74 P 215 QRSd 95 QRS 29 QT 416 T 82 QTc 421 Conclusion Sinus or ectopic atrial rhythm...P axis (-45,135) Multiple ventricular premature complexes...V complexes w/ short R-R intervls Nonspecific T abnormalities, lateral leads...T <-0.10mV, I aVL V5 V6
--- NOTE | 2024-09-06 11:30 | DI.RAD_ITS ---
Exam(s) XR CHEST 2V PA LATERAL EXAM: XR CHEST 2V PA LATERAL CLINICAL HISTORY: cough TECHNIQUE: 2D digital imaging was performed of the chest. Two images were obtained. PA and lateral views were obtained. COMPARISON: CR CHEST 2 VIEWS PA,LAT from 07/13/[address] CHEST PE CTA from 05/03/2024 FINDINGS: MEDIASTINUM: Normal. HEART: Normal. PULMONARY VASCULATURE: Normal. LUNGS: Clear. PLEURAL SPACE: No pleural effusion or pneumothorax. The right costophrenic angle is not included on t his examination. BONE:Within normal limits for the patient's age. There are old healed right rib fractures. The danitza ent has a left reverse total shoulder arthroplasty. OTHER FINDINGS:Normal. IMPRESSION: No acute pulmonary findings. DATA REPOSITORY: RADIATION DOSE DELIVERED:
--- NOTE | 2024-09-06 11:30 | DI.CT_ITS ---
Exam(s) CT HEAD - STROKE PROTOCOL EXAM: CT HEAD - STROKE PROTOCOL CLINICAL HISTORY: altered, word finding difficulty. TECHNIQUE: Imaging Protocol: Axial computed tomography images with coronal and sagittal reformatted images were created and reviewed COMPARISON: CT CT HEAD CERVICAL SPINE WO from 06/13/2021 FINDINGS: Ventricles and Extra axial spaces: Normal in size and morphology for the patient's age. Hemorrhage: None. Cerebral parenchyma: No evidence of an acute territorial infarct. No mass effect. There are subtle areas of decreased attenuation in the white matter most consistent with chronic microvascular ischemi c disease. Midline shift: None. Brainstem/Cerebellum: Normal. Calvarium: Normal. Visualized Paranasal sinuses/Mastoids: Clear. Soft Tissues: Unremarkable. IMPRESSION: No acute intracranial process. RADIATION DOSE DELIVERED: 872.33mGy.cm Total DLP DATA REPOSITORY: All CT scans at this facility are submitted to the National Radiology Data Registry (NRDR) Dose Index Registry (DIR) with the [employer] ([employer]). RADIATION OPTIMIZATION: All CT scans at this facility use at least one of these dose optimization te chniques: automated exposure control; mA and/or kV adjustment per patient size (includes targeted exa ms where dose is matched to clinical indication); or iterative reconstruction.
--- NOTE | 2024-09-06 11:54 | DI.VRAD_ITS ---
PROCEDURE INFORMATION: Exam: CT Head Without Contrast Exam date and time: 09/06/2024 11:41 AM Age: 73 years old Clinical indication: Stroke-like symptoms; Other: Altered, word finding difficulty TECHNIQUE: Imaging protocol: Computed tomography of the head without contrast. Other technique: STROKE PROTOCOL was implemented. COMPARISON: CT HEAD CERVICAL SPINE WO 06/13/2021 10:22 PM FINDINGS: Brain: Age related diffuse parenchymal volume loss. No hemorrhage. Unremarkable white matter. No mass effect. Cerebral ventricles: No ventriculomegaly. Paranasal sinuses: Mucosal disease of bilateral maxillary sinuses. Mastoid air cells: Visualized mastoid air cells are well aerated. Bones: Benign hyperostosis frontalis is present. Soft tissues: Unremarkable. IMPRESSION: No large territorial infarct or intracranial bleed. ASSESSMENT: ASPECTS ([place] Stroke Program Early CT Score) is 10. Dictated and Authenticated by: Jose Armando Walls MD. Ordering:LADY Dunham MD
--- NOTE | 2024-09-06 12:12 | DI.VRAD_ITS ---
PROCEDURE INFORMATION: Exam: XR Chest Exam date and time: 09/06/2024 11:44 AM Age: 73 years old Clinical indication: Cough TECHNIQUE: Imaging protocol: Radiologic exam of the chest. Views: 2 views. COMPARISON: CT CHEST PE CTA 05/03/2024 6:45 PM FINDINGS: Lungs: Unremarkable. No consolidation. Pleural spaces: Unremarkable. No pleural effusion. No pneumothorax. Heart/Mediastinum: Unremarkable. No cardiomegaly. Vasculature: Aortic arch calcifications. Bones/joints: Reverse total left shoulder arthroplasty. Mild degenerative disease of the left acromioclavicular joint. The thoracic spine demonstrates mild degenerative changes at multiple levels. IMPRESSION: No acute cardiopulmonary process. Dictated and Authenticated by: Jose Armando Walls MD. Ordering:LADY Dunham MD
[2024-09-06 12:17] LABS: Abs Immature Grans 0.13 10^3/uL (0.0-0.06); Absolute Basophil Count 0.05 10^3/uL (0.0-0.2); Absolute Eosinophil Count 0.09 10^3/uL (0.0-0.7); Absolute Lymphocyte Count 1.03 10^3/uL (1.2-3.4); Basophils % 0.4 %; Eosinophils % 0.7 %; Lymphocytes % 7.9 %; MCH 28.5 pg (27.0-33.0); MCHC 28.8 % (32.0-36.0); MCV 99 fL (80-95); MPV 10.2 fL (8.0-11.0); Monocytes % 5.8 %; Neutrophils % 84.2 %; Platelet Count 609 10^3/uL (130-400); RBC 2.07 10^6/uL (3.93-5.22); RDW 18.1 % (11.7-14.6); RDW-SD 64.9 fL; WBC 13.03 10^3/uL (4.4-10.8)
[2024-09-06 12:18] LABS: Absolute Monocyte Count 0.76 10^3/uL (0.1-0.8); Absolute Neutrophil Count 10.97 10^3/uL (1.2-6.7)
[2024-09-06 12:19] LABS: HGB 5.9 g/dL (11.2-15.7)
[2024-09-06 12:20] LABS: HCT 20.5 % (36.0-46.0)
[2024-09-06 12:22] LABS: ALT 15 U/L (14-59); AST 12 U/L (15-37); Albumin 3.1 g/dL (3.4-5.0); Alkaline Phosphatase 85 U/L (46-116); Anion Gap 9.6 mmol/L (3-11); BUN 60 mg/dL (7-18); CO2 25.4 mmol/L (21.0-32.0); Calcium 8.7 mg/dL (8.5-10.1); Chloride 108 mmol/L (98-107); Estimated GFR 25.89 (mL/min/1.73m2); Glucose 76 mg/dL (74-106); Magnesium 2.2 mg/dL (1.8-2.4); Potassium 4.8 mmol/L (3.5-5.1); Sodium 143 mmol/L (136-145); Total Protein 6.8 g/dL (6.4-8.2); Troponin I 22 ng/L (<or=51)
[2024-09-06 12:29] LABS: Anisocytosis 1+; Diff Comment RBC Morph Reviewed; Hypochromasia 2+; Polychromasia Present
[2024-09-06 12:30] LABS: Troponin I 23 ng/L (<or=51)
[2024-09-06 12:46] LABS: FREE T4 0.88 ng/dL (0.76-1.46)
[2024-09-06 12:48] LABS: COVID-19 PCR Negative (Negative); Influenza A PCR Negative (Negative); Influenza B PCR Negative (Negative); RSV PCR Negative (Negative)
[2024-09-06 12:49] LABS: Source Nasopharynx
--- NOTE | 2024-09-06 12:49 | ED.GENADUL_ITS ---
Discharge Plan Disposition Patient Disposition: Admit to [facility] Condition: Serious Discharge Details Clinical Impression: Severe anemia, Epistaxis, Acute confusion, KEVIN (acute kidney injury) Primary Care Provider: Gui Graham ED Provider: Roly Flanagan Home Meds and New Rx's Prescriptions: No Action carvedilol 12.5 mg tablet 12.5 mg PO BID Rx Instructions: must administer with a meal/food Mounjaro 2.5 mg/0.5 mL pen injector 2.5 mg subcut QWEEK MDD 2.5 28 Days Qty: 2 12RF Rx Instructions: Inject 2.5 mg subcutaneously once weekly as directed. fentanyl 12 mcg/hr patch 72 hour 1 patch transdermal Q72H MDD 1 patch Qty: 5 0RF (DME) Dexcom G7 Distribution Systems Serviceperson Misc See Rx Instructions .Route Qty: 1 0RF Rx Instructions: As directed (DME) Dexcom G7 Sensor Device See Rx Instructions .Route Qty: 1 11RF Rx Instructions: As directed vibegron 75 mg tablet 75 mg PO DAILY Qty: 90 3RF Rx Instructions: per [facility] gyne, for urge incontinence potassium chloride 10 mEq tablet extended release 10 meq PO DAILY Qty: 90 3RF (DME) blood-glucose meter [Accu-Chek Guide Glucose Meter] Misc See Rx Instructions .ROUTE .MEDSUPPLY Qty: 1 0RF Rx Instructions: test as directed (DME) insulin syringe-needle U-100 [BD Insulin Syringe Ultra-Fine] 1 mL 31 gauge x 5/16 syringe See Rx Instructions .ROUTE .MEDSUPPLY Qty: 180 3RF Rx Instructions: 1 injection sq BID folic acid 1 mg tablet 1 mg PO DAILY (DME) Accu-Chek Guide test strips Strip 1 ea Miscellaneous DAILY Qty: 300 3RF Rx Instructions: test 3 x day (DME) lancets Misc 1 ea Miscellaneous DAILY Qty: 300 3RF Rx Instructions: test 3 x /day magnesium 250 mg tablet 500 mg PO QHS Eliquis 5 mg tablet 5 mg PO BID Qty: 60 11RF Rx Instructions: Per discharge from [facility] on 05/18/2022 atorvastatin 40 mg tablet 40 mg PO DAILY Qty: 90 3RF chlorthalidone 50 mg tablet 100 mg PO DAILY Qty: 180 3RF duloxetine 60 mg capsule,delayed release(DR/EC) 60 mg PO DAILY Qty: 90 3RF duloxetine 30 mg capsule,delayed release(DR/EC) 30 mg PO DAILY Qty: 90 3RF Rx Instructions: take with a 60 mg capsule to equal 90 mg/day furosemide 20 mg tablet 20 mg PO DAILY Qty: 90 3RF metformin 500 mg tablet 500 mg PO BID Qty: 180 3RF ropinirole 8 mg tablet extended release 24 hr 8 mg PO DAILY Qty: 90 3RF spironolactone [Aldactone] 25 mg tablet 25 mg PO DAILY Qty: 90 3RF hydroxyurea 500 mg capsule 500 - 1,000 mg PO DAILY Qty: 115 3RF Rx Instructions: 500 mg/day except take 1000 mg Sat and Saturday aspirin [Adult Aspirin Regimen] 81 mg tablet,delayed release (DR/EC) 81 mg PO DAILY insulin degludec [Tresiba FlexTouch U-200] 200 unit/mL (3 mL) insulin pen 120 unit subcut HS Rx Instructions: Inject 120 units subcutaneously once daily as directed ibuprofen 600 mg tablet 600 mg PO TID PRN (Reason: pain) Qty: 90 0RF losartan 100 mg tablet 100 mg PO HS HPI General Date/Time Provider Initiated Documentation: 09/06/24 10:49 . Limitations to Documentation: no limitations . Information obtained by: patient . HPI Narrative: 73-year-old female with multiple medical problems including history of insulin- dependent diabetes, hypertension, hyperlipidemia, coronary artery disease, peripheral vascular disease, status post below-knee amputation of the left, lipodermatosclerosis, here with generalized weakness and associated confusion since this morning. Patient notes she has not been sleeping well over the past few days mostly related to pain in her legs bilaterally. She states she was up all night last night. She took oxycodone and used fentanyl patch this morning and then was not feeling well. She laid down for a brief period and when she woke she was confused and had trouble with word finding. She also notes her arms felt loose like spaghetti. Fatigue and mild confusion have persisted. She denies headache. No focal weakness or numbness. No visual changes. No recent trauma. Related Data Home Medications ?Medication ?Instructions ?Recorded ?Confirmed blood-glucose meter (Accu-Chek #1 ea 03/17/20 09/06/24 Guide Glucose Meter) insulin syringe-needle U-100 1 mL #180 ea 12/06/20 09/06/24 31 gauge x 5/16 (BD Insulin Syringe Ultra-Fine) folic acid 1 mg tablet 1 mg PO DAILY 06/05/22 09/06/24 blood sugar diagnostic (Accu-Chek #300 strips 11/24/22 09/06/24 Guide test strips) lancets #300 ea 11/24/22 09/06/24 blood-glucose meter,continuous #1 ea 01/02/23 09/06/24 (Dexcom G7 Distribution Systems Serviceperson) blood-glucose sensor (Dexcom G7 #1 ea 01/02/23 09/06/24 Sensor device) magnesium 250 mg tablet 500 mg PO QHS 07/01/23 09/06/24 carvedilol 12.5 mg tablet 12.5 mg PO BID 12/23/23 09/06/24 apixaban 5 mg tablet (Eliquis) 5 mg PO BID #60 tabs 01/13/24 09/06/24 atorvastatin 40 mg tablet 40 mg PO DAILY #90 tab-caps 01/13/24 09/06/24 chlorthalidone 50 mg tablet 100 mg (2 x 50 mg) PO DAILY #180 01/13/24 09/06/24 tabs duloxetine 30 mg capsule,delayed 30 mg PO DAILY #90 caps 01/13/24 09/06/24 release duloxetine 60 mg capsule,delayed 60 mg PO DAILY #90 caps 01/13/24 09/06/24 release furosemide 20 mg tablet 20 mg PO DAILY #90 tabs 01/13/24 09/06/24 metformin 500 mg tablet 500 mg PO BID #180 tabs 01/13/24 09/06/24 ropinirole 8 mg tablet,extended 8 mg PO DAILY #90 tabs 01/13/24 09/06/24 release 24 hr spironolactone 25 mg tablet 25 mg PO DAILY #90 tabs 01/13/24 09/06/24 (Aldactone) tirzepatide 2.5 mg/0.5 mL 2.5 mg (0.5 mL) subcut QWEEK 4 02/25/24 09/06/24 subcutaneous pen injector weeks #2 mL (Mounjaro) potassium chloride 10 mEq 10 meq PO DAILY #90 tabs 03/11/24 09/06/24 tablet,extended release vibegron 75 mg tablet 75 mg PO DAILY #90 tabs 03/11/24 09/06/24 hydroxyurea 500 mg capsule 500 - 1,000 mg (1 - 2 x 500 mg) PO 04/08/24 09/06/24 DAILY #115 caps insulin degludec 200 unit/mL (3 120 unit subcut HS 06/23/24 09/06/24 mL) subcutaneous pen (Tresiba FlexTouch U-200 insulin) ibuprofen 600 mg tablet 600 mg PO TID PRN pain #90 tabs 06/24/24 09/06/24 fentanyl 12 mcg/hr transdermal 1 patch transdermal Q72H #5 ea 07/22/24 09/06/24 patch aspirin 81 mg tablet,delayed 81 mg PO DAILY 08/06/24 09/06/24 release (Adult Aspirin Regimen) losartan 100 mg tablet 100 mg PO HS 09/06/24 09/06/24 Previous Rx's ?Medication ?Instructions ?Recorded blood-glucose meter (Accu-Chek #1 ea 03/17/20 Guide Glucose Meter) insulin syringe-needle U-100 1 mL #180 ea 12/06/20 31 gauge x 5/16 (BD Insulin Syringe Ultra-Fine) blood sugar diagnostic (Accu-Chek #300 strips 11/24/22 Guide test strips) lancets #300 ea 11/24/22 blood-glucose meter,continuous #1 ea 01/02/23 (Dexcom G7 Distribution Systems Serviceperson) blood-glucose sensor (Dexcom G7 #1 ea 01/02/23 Sensor device) apixaban 5 mg tablet (Eliquis) 5 mg PO BID #60 tabs 01/13/24 atorvastatin 40 mg tablet 40 mg PO DAILY #90 tab-caps 01/13/24 chlorthalidone 50 mg tablet 100 mg (2 x 50 mg) PO DAILY #180 01/13/24 tabs duloxetine 30 mg capsule,delayed 30 mg PO DAILY #90 caps 01/13/24 release duloxetine 60 mg capsule,delayed 60 mg PO DAILY #90 caps 01/13/24 release furosemide 20 mg tablet 20 mg PO DAILY #90 tabs 01/13/24 metformin 500 mg tablet 500 mg PO BID #180 tabs 01/13/24 ropinirole 8 mg tablet,extended 8 mg PO DAILY #90 tabs 01/13/24 release 24 hr spironolactone 25 mg tablet 25 mg PO DAILY #90 tabs 01/13/24 (Aldactone) tirzepatide 2.5 mg/0.5 mL 2.5 mg (0.5 mL) subcut QWEEK 4 02/25/24 subcutaneous pen injector weeks #2 mL (Mounjaro) potassium chloride 10 mEq 10 meq PO DAILY #90 tabs 03/11/24 tablet,extended release vibegron 75 mg tablet 75 mg PO DAILY #90 tabs 03/11/24 hydroxyurea 500 mg capsule 500 - 1,000 mg (1 - 2 x 500 mg) PO 04/08/24 DAILY #115 caps ibuprofen 600 mg tablet 600 mg PO TID PRN pain #90 tabs 06/24/24 fentanyl 12 mcg/hr transdermal 1 patch transdermal Q72H #5 ea 07/22/24 patch Allergies Allergy/AdvReac Type Severity Reaction Status Date / Time clopidogrel Allergy Skin Rash Verified 09/06/24 10:45 oxybutynin AdvReac Intermediate Reflex Verified 09/06/24 10:45 propoxyphene AdvReac Nausea Verified 09/06/24 10:45 General Stated Complaint: Diabetes KIMI: 3 Review of Systems All systems reviewed & are unremarkable except as noted in HPI and below Constitutional Constitutional: Reports as per HPI, Denies fever(s) and Reports weakness Respiratory Respiratory: Reports cough Neurologic Neurologic: Reports weakness Exam Const General: cooperative and no acute distress [facility] Head: atraumatic General nose exam: epistaxis on the right dried blood present (clot visible ) Mouth: moist mucous membranes Eyes Conjunctivae: normal conjunctivae Sclera: normal sclerae Neck Neck: trachea midline and supple Resp Auscultation: clear to auscultation bilaterally, no rales, no rhonchi and no wheezes Cardio Rate: regular rate and not tachycardic Rhythm: regular rhythm GI Palpation: soft, not firm, no guarding, no masses, not rigid and nontender Skin General skin exam: no rashes or lesions noted and pallor Neuro General: patient alert, patient awake, patient oriented x3 and tone normal Extrem General: no edema Psych Appearance: grossly normal Mental Status: mental status grossly normal Speech and Movement: speech and movement normal Course Vital Signs Vital signs: Vital Signs Temperature 35.9 C L 09/06/24 10:36 Pulse 68 09/06/24 10:36 Respiratory Rate 14 09/06/24 10:36 Blood Pressure 143/24 H 09/06/24 10:36 Pulse Oximetry 96 09/06/24 10:36 Temperature 35.9 C L 09/06/24 10:52 Temperature Source Skin 09/06/24 10:52 Pulse 60 09/06/24 12:09 Pulse 72 09/06/24 12:30 Respiratory Rate 16 09/06/24 12:30 Blood Pressure 115/40 L 09/06/24 12:09 Blood Pressure Mean 67 09/06/24 12:09 Pulse Oximetry 97 09/06/24 12:30 Oxygen Delivery Method Room Air 09/06/24 10:52 Oxygen Flow Rate 0 09/06/24 10:52 Pain Level 0 09/06/24 10:52 Lab/Test Results Lab/Test Results: Laboratory Tests Range/Units 09/06/24 09/06/24 09/06/24 10:54 11:57 12:32 WBC (4.4-10.8) 10^3/uL 13.03 H RBC (3.93-5.22) 10^6/uL 2.07 L Hgb (11.2-15.7) g/dL 5.9 L* Hct (36.0-46.0) % 20.5 L* MCV (80-95) fL 99 H MCH (27.0-33.0) pg 28.5 MCHC (32.0-36.0) % 28.8 L RDW (11.7-14.6) % 18.1 H Plt Count (130-400) 10^3/uL 609 H MPV (8.0-11.0) fL 10.2 Immature Gran % % 1.0 Neutrophils % % 84.2 Lymphocytes % % 7.9 Monocytes % % 5.8 Eosinophils % % 0.7 Basophils % % 0.4 Nucleated RBC % (0.0-0.3) % 0.0 Absolute Neutrophils (1.2-6.7) 10^3/uL 10.97 H Absolute Lymphocytes (1.2-3.4) 10^3/uL 1.03 L Absolute Monocytes (0.1-0.8) 10^3/uL 0.76 Absolute Eosinophils (0.0-0.7) 10^3/uL 0.09 Absolute Basophils (0.0-0.2) 10^3/uL 0.05 RBC Morphology See Below Polychromasia Present Hypochromasia 2+ Anisocytosis 1+ Sodium (136-145) mmol/L 143 Potassium (3.5-5.1) mmol/L 4.8 Chloride (98-107) mmol/L 108 H Carbon Dioxide (21.0-32.0) mmol/L 25.4 Anion Gap (3-11) mmol/L 9.6 BUN (7-18) mg/dL 60 H Creatinine (0.55-1.02) mg/dL 2.0 H Est GFR (CKD-EPI 2020) (mL/min/1.73m2) 25.89 Glucose (74-106) mg/dL 76 Calcium (8.5-10.1) mg/dL 8.7 Magnesium (1.8-2.4) mg/dL 2.2 Total Bilirubin (0.2-1.0) mg/dL 0.20 AST (15-37) U/L 12 L ALT (14-59) U/L 15 Alkaline Phosphatase (46-116) U/L 85 Troponin I (<or=51) ng/L 22 23 Total Protein (6.4-8.2) g/dL 6.8 Albumin (3.4-5.0) g/dL 3.1 L TSH (0.36-3.74) uIU/mL 6.60 H Free T4 (0.76-1.46) ng/dL 0.88 Crossmatch See Detail Medical Decision Making 1300 --73-year-old female with multimedical problems including coronary artery disease and venous insufficiency, on Eliquis and aspirin, here with altered mental status since this morning. Patient did take oxycodone and used newly prescribed a fentanyl patch together this morning. Initial concern for potential accidental opioid overdose. This may be contributing to presentation. CT of the head was obtained to assess for acute intracranial process: No large territorial infarct or intracranial bleed as interpreted by radiology. Chest x-ray was reviewed interpreted by radiology: No acute cardiopulmonary process. Screening labs were sent and highly concerning for severe anemia with hemoglobin of 5.9. This is a significant drop from most recent prior of 11 in April. On further questioning patient notes that she has not had any blood in her stool or melena but has had intermittent nosebleeds from right nare over the past week including 1 episode recently that lasted 8 hours. She has had no active bleeding today. Plan to transfuse 1 unit of PRBCs. Plan to hold apixaban. Plan to hospitalize. 1315 --I spoke with hospitalist on-call Apryl Ovalle, discussed ED presentation course, she will admit the patient. Lab Data Lab results reviewed: Yes I reviewed the patient's lab results. Labs: Laboratory Tests Range/Units 09/06/24 09/06/24 09/06/24 10:54 11:57 12:40 WBC (4.4-10.8) 10^3/uL 13.03 H RBC (3.93-5.22) 10^6/uL 2.07 L Hgb (11.2-15.7) g/dL 5.9 L* Hct (36.0-46.0) % 20.5 L* MCV (80-95) fL 99 H MCH (27.0-33.0) pg 28.5 MCHC (32.0-36.0) % 28.8 L RDW (11.7-14.6) % 18.1 H Plt Count (130-400) 10^3/uL 609 H MPV (8.0-11.0) fL 10.2 Immature Gran % % 1.0 Neutrophils % % 84.2 Lymphocytes % % 7.9 Monocytes % % 5.8 Eosinophils % % 0.7 Basophils % % 0.4 Nucleated RBC % (0.0-0.3) % 0.0 Absolute Neutrophils (1.2-6.7) 10^3/uL 10.97 H Absolute Lymphocytes (1.2-3.4) 10^3/uL 1.03 L Absolute Monocytes (0.1-0.8) 10^3/uL 0.76 Absolute Eosinophils (0.0-0.7) 10^3/uL 0.09 Absolute Basophils (0.0-0.2) 10^3/uL 0.05 RBC Morphology See Below Polychromasia Present Hypochromasia 2+ Anisocytosis 1+ Sodium (136-145) mmol/L 143 Potassium (3.5-5.1) mmol/L 4.8 Chloride (98-107) mmol/L 108 H Carbon Dioxide (21.0-32.0) mmol/L 25.4 Anion Gap (3-11) mmol/L 9.6 BUN (7-18) mg/dL 60 H Creatinine (0.55-1.02) mg/dL 2.0 H Est GFR (CKD-EPI 2020) (mL/min/1.73m2) 25.89 Glucose (74-106) mg/dL 76 Calcium (8.5-10.1) mg/dL 8.7 Magnesium (1.8-2.4) mg/dL 2.2 Total Bilirubin (0.2-1.0) mg/dL 0.20 AST (15-37) U/L 12 L ALT (14-59) U/L 15 Alkaline Phosphatase (46-116) U/L 85 Troponin I (<or=51) ng/L 22 23 Total Protein (6.4-8.2) g/dL 6.8 Albumin (3.4-5.0) g/dL 3.1 L TSH (0.36-3.74) uIU/mL 6.60 H Free T4 (0.76-1.46) ng/dL 0.88 COVID-19 Source Nasopharynx SARS-CoV-2 (PCR) (Negative) Negative Influenza Type A (PCR) (Negative) Negative Influenza Type B (PCR) (Negative) Negative RSV (PCR) (Negative) Negative Crossmatch See Detail Quality:SDOH Health Related Social Needs: No Data to Display Critical Care Time Critical Care Time Critical Care Time: Yes Total Critical Care Time: 40 Attestation: I spent greater than 40 minutes addressing this patient's immediate life threats. Please see MDM section of note. This time was spent engaged in work directly related to the patient's care, exclusive of separate procedures, and failure to initiate these interventions would have likely resulted in clinically significant or life threatening deterioration in the patient's condition. 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 Harvey. Osteoarthritis of right hip (Chronic) Injection under fluoroscopy: 10/01/2019 RLS (restless legs syndrome) (Chronic) Primary osteoarthritis of right knee (Chronic) Chronic pain of left lower extremity (Chronic) await trimmer meat recommendations Polyp of colon (Acute 09/15/09) 09/25 COLONOSCOPY: ONE TUBULAR ADENOMA AND FOUR HYPERPLASTIC POLYPS. ALEX (obstructive sleep apnea) (Chronic 03/11/18) not on CPAP due to bedroom size Hyperlipidemia (Acute 01/14/14) History of tobacco use (Acute) Essential hypertension (Acute 08/18/13) Cataracts, both eyes (Acute) 11/11/15 OPTICAL EXPRESSIONS; EARLY CATARACTS B12 deficiency (Acute 04/08/15) Atherosclerosis of [place] coronary artery (Acute) Stent RCA 2006 Hyperlipidemia (Chronic) Hypertension (Chronic) CAD (coronary artery disease) (Chronic) S/P stent 2004 Peripheral vascular disease (Chronic) S/P right SFA antioplasty an sstenting, 2003. Left DVA to [place] popliteal bypass with [place]-Ruben, 2003. Bypass Left Stent Right 2006 left BKA 08/28 Medical History Venous insufficiency of leg Atrial fibrillation Fracture, femur closed, shaft (05/13/22) (L) Carpal tunnel syndrome (05/16/09) Hypertension History of tobacco abuse Quit 2004 Surgical History Status post amputation of lesser toe of right foot History of left hip replacement History of total replacement of left shoulder joint 02/08/23. -hb S/P peripheral artery angioplasty with stent placement Status post below-knee amputation of left lower extremity (2012) History of total right hip replacement (08/03/20) Hx of tubal ligation History of carpal tunnel release Bilaterally Family History Mother , 74 Neoplasm UTERINE Osteoporosis Uterine cancer Lung cancer Father Lung cancer Sister Neoplasm MELANOMA Breast cancer Sister No problems noted. Sister Skin cancer Brother No problems noted. Son Alcohol abuse Depression Maternal Grandfather Stomach cancer Paternal Grandfather No problems noted. Maternal Grandmother No problems noted. Paternal Grandmother No problems noted. Daughter Depression Social History Smoking/Tobacco Use Status: Former Tobacco Use tobacco type: cigarettes Quit Date: 09/16/04 Tobacco: How many years used: 37 Second Hand Exposure: Yes Smoking risk assessment performed?: Yes Alcohol Intake: current Alcohol Intake frequency: a few times a month Alcohol type: beer and hard liquor Drug use: Never Substance use type: does not use Details: Patient drank a alcoholic beverage yesterday (06/23) Caregiver/Support person: No Household members: none Housing: house Do you need help understanding health information?: Rarely current occupation: [employer] Pets and animals: Yes Pets and animals: cat(s) Sexually active: No Do you think of yourself as: straight/heterosexual Current gender identity: female What is your relationship status?: How often do you talk on the phone with friends or family?: three or more times per week How often do you get together with friends or relatives?: decline to answer How often do you attend pentecostalism or adventist services?: 1-3 times per year Do you belong to any clubs or organized social groups?: no Panel score (0-1 are the most socially isolated patients): 2 What type of physical activity do you participate in: none Carmelina/Moravian: Christianity Special carmelina needs: No Seatbelt use: always Helmet use: Yes Helmet use: always Drive intox 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 hack driver: No Do you feel safe at home: Yes Do you feel safe in your relationship?: Yes Would you like helpful sources: No
--- NOTE | 2024-09-06 13:19 | W.PM.HP.N ---
Date of service: 09/06/24 Time of Service: 13:19 Assessment and Plan Assessment and plan (1) Severe anemia: Status: Acute Assessment and plan: Hemoglobin at 5.9 which is down from 11.3 from April 2024 history of Macrocytic suspect blood loss secondary to significant epitaxis with one episode reported of up to 8 hours Fully anticoagulated on apixaban which will be placed on hold Anemia labs will be added check stool for OB TSH 6.60, repeat outpatient in 2-4 weeks or per pcp Transfuse one unit of PRBC initiated in the ED, follow labs closely (2) Peripheral vascular disease: Status: Chronic Assessment and plan: Fully anticoagulated on apixaban Will resume as soon as hemoglobin and hematocrit stable Likely blood loss is from epi taxis which is now controlled or resolved Consider heparin drip and then if stable back on apixaban Wound care consultation (3) Type 2 diabetes mellitus with circulatory disorder, with long-term current use of insulin: Status: Acute Assessment and plan: Hemoglobin A1c in June 2024 6.1 Continue diabetic diet Will place metformin on hold in the setting of acute on chronic kidney injury Continue Tresiba, or convert to Lantus if unavailable Check blood sugars before meals and at bedtime Mounjaro will be placed on hold while hospitalized (4) Essential thrombocythemia: Status: Acute Assessment and plan: Followed by [facility] continue Hydrea (5) Epistaxis: Status: Acute Assessment and plan: No further bleeding at this point Consider Afrin, TXA, cauterization if needed Referral for ENT Apixaban will be placed on hold (6) Acute confusion: Status: Acute Assessment and plan: Possibly secondary to severe anemia but also recent increase in opioids secondary to chronic pain Continue to monitor Safety precautions Head CT unrevealing urine drug pending (7) KEVIN (acute kidney injury): Status: Acute Assessment and plan: Creatinine 2.0 which is above baseline of 1.7-1.8 Will hold diuretics and nephrotoxic drugs for now including metformin losartan chlorthalidone Lasix and spironolactone Avoid nephrotoxic drugs and renally dose Consider gentle IV hydration overnight (8) Lipodermatosclerosis: Status: Acute Assessment and plan: Followed by [facility] continue current pain management including fentanyl patch (9) Discharge planning issues: Status: Acute Assessment and plan: No pharmacologic DVT prophylaxis at this time secondary to acute anemia thought to be secondary to acute bleeding. Has below the knee amputation on the right secondary to severe peripheral artery disease. No compression to left. Discharge planning issues anticipated discharge to home once medically stable Admission discussed with Dr. Espinal History of Present Illness Narrative: Presents to the emergency department today with malaise and confusion. Her workup in the emergency department was concerning for acute anemia with a hemoglobin of 5.9 which is down from 11 a few months ago. She does report that she has had intermittent epi taxis from the right nare, 1 episode lasting approximately 8 hours. She is fully anticoagulated on apixaban and does take a baby aspirin. Also recently started on fentanyl patch for pain associated with lipodermatosclerosis. Plan is to transfuse packed red blood cells hold her anticoagulant and referred to observation for further monitoring and management Review of Systems All systems reviewed & are unremarkable except as noted in HPI and below PFSH All Active Problems (Updated 09/06/24 @ 13:31 by Apryl Ovalle NP) Discharge planning issues (Acute) KEVIN (acute kidney injury) (Acute) Acute confusion (Acute) Epistaxis (Acute) Severe anemia (Acute) Multiple open wounds of right lower leg (Acute) Chronic pain of right lower extremity (Acute) Bilateral carpal tunnel syndrome (Acute) B/L ECTR: 06/24/2024 Ulnar neuropathy of both upper extremities (Acute) Renal lesion (Acute) Phlegm in throat (Acute) Hand numbness (Acute) Lipodermatosclerosis (Acute) Bladder leak (Acute) Weight gain (Acute) Rash (Acute) Change in bowel habits (Acute) 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 with Hydrea Type 2 diabetes mellitus with circulatory disorder, with long-term current use of insulin (Acute) Rotator cuff tear arthropathy of right shoulder (Acute) DEPO MEDROL 11/09/22 Rotator cuff tear arthropathy of left shoulder (Acute) Fatigue (Acute) Osteoarthritis of right knee (Acute) Steroid Injection: 12/23/2023 Most recent Synvisc injections: 06/24/2023; 04/10/2022; 09/26/2021 She has been provided with Synvisc injections for many years with Dr. Harvey. Osteoarthritis of right hip (Chronic) Injection under fluoroscopy: 10/01/2019 RLS (restless legs syndrome) (Chronic) Primary osteoarthritis of right knee (Chronic) Chronic pain of left lower extremity (Chronic) await certified orthotist/pedorthist recommendations Polyp of colon (Acute 09/15/09) 09/25 COLONOSCOPY: ONE TUBULAR ADENOMA AND FOUR HYPERPLASTIC POLYPS. ALEX (obstructive sleep apnea) (Chronic 03/11/18) not on CPAP due to bedroom size Hyperlipidemia (Acute 01/14/14) History of tobacco use (Acute) Essential hypertension (Acute 08/18/13) Cataracts, both eyes (Acute) 11/11/15 OPTICAL EXPRESSIONS; EARLY CATARACTS B12 deficiency (Acute 04/08/15) Atherosclerosis of [place] coronary artery (Acute) Stent RCA 2006 Hyperlipidemia (Chronic) Hypertension (Chronic) CAD (coronary artery disease) (Chronic) S/P stent 2004 Peripheral vascular disease (Chronic) S/P right SFA antioplasty an sstenting, 2003. Left DVA to [place] popliteal bypass with Callao-Ruben, 2003. Bypass Left Stent Right 2005 left BKA 08/28 Medical History Venous insufficiency of leg Atrial fibrillation Fracture, femur closed, shaft (05/13/22) (L) Carpal tunnel syndrome (05/16/09) Hypertension History of tobacco abuse Quit 2004 Surgical History Status post amputation of lesser toe of right foot History of left hip replacement History of total replacement of left shoulder joint 02/08/23. -hb S/P peripheral artery angioplasty with stent placement Status post below-knee amputation of left lower extremity (2012) History of total right hip replacement (08/03/20) Hx of tubal ligation History of carpal tunnel release Bilaterally Family History Mother , 74 Neoplasm UTERINE Osteoporosis Uterine cancer Lung cancer Father Lung cancer Sister Neoplasm MELANOMA Breast cancer Sister No problems noted. Sister Skin cancer Brother No problems noted. Son Alcohol abuse Depression Maternal Grandfather Stomach cancer Paternal Grandfather No problems noted. Maternal Grandmother No problems noted. Paternal Grandmother No problems noted. Daughter Depression Social History Smoking/Tobacco Use Status: Former Tobacco Use tobacco type: cigarettes Quit Date: 09/16/04 Tobacco: How many years used: 37 Second Hand Exposure: Yes Smoking risk assessment performed?: Yes Alcohol Intake: current Alcohol Intake frequency: a few times a month Alcohol type: beer and hard liquor Drug use: Never Substance use type: does not use Details: Patient drank a alcoholic beverage yesterday (06/23) Caregiver/Support person: No Household members: none Housing: house Do you need help understanding health information?: Rarely current occupation: [employer] Pets and animals: Yes Pets and animals: cat(s) Sexually active: No Do you think of yourself as: straight/heterosexual Current gender identity: female What is your relationship status?: How often do you talk on the phone with friends or family?: three or more times per week How often do you get together with friends or relatives?: decline to answer How often do you attend sikh or bahai services?: 1-3 times per year Do you belong to any clubs or organized social groups?: no Panel score (0-1 are the most socially isolated patients): 2 What type of physical activity do you participate in: none Carmelina/Yazdanism: Mormonism Special carmelina needs: No Seatbelt use: always Helmet use: Yes Helmet use: always Drive intox 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 Do you feel safe at home: Yes Do you feel safe in your relationship?: Yes Would you like helpful sources: No Meds Allergies and Home Medications Allergies Allergy/AdvReac Type Severity Reaction Status Date / Time clopidogrel Allergy Skin Rash Verified 09/06/24 10:45 oxybutynin AdvReac Intermediate Reflex Verified 09/06/24 10:45 propoxyphene AdvReac Nausea Verified 09/06/24 10:45 Home Medications ?Medication ?Instructions ?Recorded ?Confirmed ?Type blood-glucose meter (Accu-Chek #1 ea 03/17/20 09/06/24 Rx Guide Glucose Meter) insulin syringe-needle U-100 1 mL #180 ea 12/06/20 09/06/24 Rx 31 gauge x 5/16 (BD Insulin Syringe Ultra-Fine) folic acid 1 mg tablet 1 mg PO DAILY 06/05/22 09/06/24 History blood sugar diagnostic (Accu-Chek #300 strips 11/24/22 09/06/24 Rx Guide test strips) lancets #300 ea 11/24/22 09/06/24 Rx blood-glucose meter,continuous #1 ea 01/02/23 09/06/24 Rx (Dexcom G7 Communications Officer) blood-glucose sensor (Dexcom G7 #1 ea 01/02/23 09/06/24 Rx Sensor device) magnesium 250 mg tablet 500 mg PO QHS 07/01/23 09/06/24 History carvedilol 12.5 mg tablet 12.5 mg PO BID 12/23/23 09/06/24 History apixaban 5 mg tablet (Eliquis) 5 mg PO BID #60 tabs 01/13/24 09/06/24 Rx atorvastatin 40 mg tablet 40 mg PO DAILY #90 tab-caps 01/13/24 09/06/24 Rx chlorthalidone 50 mg tablet 100 mg (2 x 50 mg) PO DAILY #180 01/13/24 09/06/24 Rx tabs duloxetine 30 mg capsule,delayed 30 mg PO DAILY #90 caps 01/13/24 09/06/24 Rx release duloxetine 60 mg capsule,delayed 60 mg PO DAILY #90 caps 01/13/24 09/06/24 Rx release furosemide 20 mg tablet 20 mg PO DAILY #90 tabs 01/13/24 09/06/24 Rx metformin 500 mg tablet 500 mg PO BID #180 tabs 01/13/24 09/06/24 Rx ropinirole 8 mg tablet,extended 8 mg PO DAILY #90 tabs 01/13/24 09/06/24 Rx release 24 hr spironolactone 25 mg tablet 25 mg PO DAILY #90 tabs 01/13/24 09/06/24 Rx (Aldactone) tirzepatide 2.5 mg/0.5 mL 2.5 mg (0.5 mL) subcut QWEEK 4 02/25/24 09/06/24 Rx subcutaneous pen injector weeks #2 mL (Mounjaro) potassium chloride 10 mEq 10 meq PO DAILY #90 tabs 03/11/24 09/06/24 Rx tablet,extended release vibegron 75 mg tablet 75 mg PO DAILY #90 tabs 03/11/24 09/06/24 Rx hydroxyurea 500 mg capsule 500 - 1,000 mg (1 - 2 x 500 mg) PO 04/08/24 09/06/24 Rx DAILY #115 caps insulin degludec 200 unit/mL (3 120 unit subcut HS 06/23/24 09/06/24 History mL) subcutaneous pen (Tresiba FlexTouch U-200 insulin) ibuprofen 600 mg tablet 600 mg PO TID PRN pain #90 tabs 06/24/24 09/06/24 Rx fentanyl 12 mcg/hr transdermal 1 patch transdermal Q72H #5 ea 07/22/24 09/06/24 Rx patch aspirin 81 mg tablet,delayed 81 mg PO DAILY 08/06/24 09/06/24 History release (Adult Aspirin Regimen) losartan 100 mg tablet 100 mg PO HS 09/06/24 09/06/24 History Exam Narrative Exam Narrative: Elderly female of stated age no acute distress head is atraumatic oral mucosas moist skin is pink warm dry well-perfused respirations are even and unlabored abdomen is round soft nontender extremities below the knee amputation on the left stump well-healed on the right no peripheral edema 3 stitches intact where fourth digit amputation site no erythema drainage wound is approximated. Arterial ulcers to anterior right lower extremity less than 2 cm's multiple sites slough in the wound bed weeping clear fluid no surrounding erythema no palpable pedal pulse reports painful. Neurologic she is awake alert oriented no focal deficits psychiatric appropriate mood and affect Results Labs 09/06/24 10:54 09/06/24 10:54 Labs: Laboratory Results - last 24 hr 09/06/24 09/06/24 09/06/24 10:54 11:57 12:40 WBC 13.03 H RBC 2.07 L Hgb 5.9 L* Hct 20.5 L* MCV 99 H MCH 28.5 MCHC 28.8 L RDW 18.1 H Plt Count 609 H MPV 10.2 Immature Gran % 1.0 Neutrophils % 84.2 Lymphocytes % 7.9 Monocytes % 5.8 Eosinophils % 0.7 Basophils % 0.4 Nucleated RBC % 0.0 Absolute Neutrophils 10.97 H Absolute Lymphocytes 1.03 L Absolute Monocytes 0.76 Absolute Eosinophils 0.09 Absolute Basophils 0.05 RBC Morphology See Below Polychromasia Present Hypochromasia 2+ Anisocytosis 1+ Sodium 143 Potassium 4.8 Chloride 108 H Carbon Dioxide 25.4 Anion Gap 9.6 BUN 60 H Creatinine 2.0 H Est GFR (CKD-EPI 2020) 25.89 Glucose 76 Calcium 8.7 Magnesium 2.2 Total Bilirubin 0.20 AST 12 L ALT 15 Alkaline Phosphatase 85 Troponin I 22 23 Total Protein 6.8 Albumin 3.1 L TSH 6.60 H Free T4 0.88 COVID-19 Source Nasopharynx SARS-CoV-2 (PCR) Negative Influenza Type A (PCR) Negative Influenza Type B (PCR) Negative RSV (PCR) Negative Crossmatch See Detail Last Vital Signs Temp 35.9 C L 09/06/24 10:52 Pulse 63 09/06/24 13:01 Resp 20 09/06/24 12:53 BP 129/33 L 09/06/24 13:01 Pulse Ox 94 09/06/24 13:10 Time Spent Time spent with Patient: 55-74 minutes Time was spent: preparing to see the patient(eg.review tests), obtaining and/or reviewing separately otained hiistory, ordering medications,tests, procedures, indepentently interpreting results and counseling the patient
[2024-09-06 14:07] LABS: Acetaminophen < 2 ug/mL (10-30)
[2024-09-06 14:50] LABS: Bilirubin Negative (Negative); Blood Negative (Negative); Clarity Clear (Clear); Glucose Negative (Negative); Ketones Negative (Negative); Leukocyte Esterase Negative (Negative); Nitrite Negative (Negative); Specific Gravity 1.015 (1.005-1.025); Urobilinogen 0.2 mg/dL (Up to 0.2)
--- NOTE | 2024-09-06 14:51 | W.PC.ACHO ---
Registration Status: Primary Language: Preferred Language: ED Information & Data Chief Complaint Diabetes 09/06/24 12:49 Triage Note pt became confused ~ 7am 09/06/24 10:36 today. hx type II DM. BGL per son was in the 60's. apple juice given. ELV=687 per EMS. confused and slow to respond. having difficulty finding words. Medical / Surgical History Venous insufficiency of leg Atrial fibrillation Fracture, femur closed, shaft (05/13/22) Carpal tunnel syndrome (05/16/09) Hypertension History of tobacco abuse (Last Reviewed 09/06/24 @ 13:01 by Roly Flanagan MD) Status post amputation of lesser toe of right foot History of left hip replacement History of total replacement of left shoulder joint S/P peripheral artery angioplasty with stent placement Status post below-knee amputation of left lower extremity (2012) History of total right hip replacement (08/03/20) Hx of tubal ligation History of carpal tunnel release Most Recent Vital Signs Temperature 36.6 C 09/06/24 14:29 Temperature Source Skin 09/06/24 10:52 Pulse 63 09/06/24 14:36 Pulse 76 09/06/24 14:40 Respiratory Rate 23 09/06/24 14:40 Blood Pressure 161/37 H 09/06/24 14:36 Blood Pressure Mean 81 09/06/24 14:36 Pulse Oximetry 96 09/06/24 14:36 Oxygen Delivery Method Room Air 09/06/24 14:29 Oxygen Flow Rate 0 09/06/24 14:29 Pain Level 0 09/06/24 10:52 Allergies clopidogrel Allergy (Verified 09/06/24 10:45) Skin Rash oxybutynin Adverse Reaction (Intermediate, Verified 09/06/24 10:45) Reflex Esophageal burning, reflux. Symptoms remitted after 4 days d/c. propoxyphene Adverse Reaction (Verified 09/06/24 10:45) Nausea IV IV Catheter Type [Left Saline Lock Antecubital] IV Catheter Gauge [Left 20 Antecubital] Diagnostics 09/06/24 09/06/24 09/06/24 Range/Units 14:44 13:30 12:40 WBC (4.4-10.8) 10^3/uL RBC (3.93-5.22) 10^6/uL Hgb (11.2-15.7) g/dL Hct (36.0-46.0) % MCV (80-95) fL MCH (27.0-33.0) pg MCHC (32.0-36.0) % RDW (11.7-14.6) % Plt Count (130-400) 10^3/uL MPV (8.0-11.0) fL Immature Gran % % Neutrophils % % Lymphocytes % % Monocytes % % Eosinophils % % Basophils % % Nucleated RBC % (0.0-0.3) % Absolute Neutrophils (1.2-6.7) 10^3/uL Absolute Lymphocytes (1.2-3.4) 10^3/uL Absolute Monocytes (0.1-0.8) 10^3/uL Absolute Eosinophils (0.0-0.7) 10^3/uL Absolute Basophils (0.0-0.2) 10^3/uL RBC Morphology Polychromasia Hypochromasia Anisocytosis Sodium (136-145) mmol/L Potassium (3.5-5.1) mmol/L Chloride (98-107) mmol/L Carbon Dioxide (21.0-32.0) mmol/L Anion Gap (3-11) mmol/L BUN (7-18) mg/dL Creatinine (0.55-1.02) mg/dL Est GFR (CKD-EPI 2020) (mL/min/1.73m2) Glucose (74-106) mg/dL Calcium (8.5-10.1) mg/dL Magnesium (1.8-2.4) mg/dL Total Bilirubin (0.2-1.0) mg/dL AST (15-37) U/L ALT (14-59) U/L Alkaline Phosphatase (46-116) U/L Troponin I (<or=51) ng/L Total Protein (6.4-8.2) g/dL Albumin (3.4-5.0) g/dL TSH (0.36-3.74) uIU/mL Free T4 (0.76-1.46) ng/dL Urine Color Pending Urine Clarity Pending Urine pH Pending Ur Specific Paden Pending Urine Protein Pending Urine Ketones Pending Urine Blood Pending Urine Nitrite Pending Urine Bilirubin Pending Urine Urobilinogen Pending Ur Leukocyte Esterase Pending Urine Glucose Pending Urine Opiates Screen Pending Acetaminophen < 2 (10-30) ug/mL Ur Barbiturates Screen Pending Ur Tricyclics Screen Pending Ur Amphetamines Screen Pending U Benzodiazepines Scrn Pending Urine Cocaine Screen Pending Ur THC Screen Pending COVID-19 Source SARS-CoV-2 (PCR) (Negative) Influenza Type A (PCR) (Negative) Influenza Type B (PCR) (Negative) RSV (PCR) (Negative) ABO/Rh A Positive Antibody Screen NEGATIVE Crossmatch See Detail 09/06/24 09/06/24 Range/Units 11:57 10:54 WBC 13.03 H (4.4-10.8) 10^3/uL RBC 2.07 L (3.93-5.22) 10^6/uL Hgb 5.9 L* (11.2-15.7) g/dL Hct 20.5 L* (36.0-46.0) % MCV 99 H (80-95) fL MCH 28.5 (27.0-33.0) pg MCHC 28.8 L (32.0-36.0) % RDW 18.1 H (11.7-14.6) % Plt Count 609 H (130-400) 10^3/uL MPV 10.2 (8.0-11.0) fL Immature Gran % 1.0 % Neutrophils % 84.2 % Lymphocytes % 7.9 % Monocytes % 5.8 % Eosinophils % 0.7 % Basophils % 0.4 % Nucleated RBC % 0.0 (0.0-0.3) % Absolute Neutrophils 10.97 H (1.2-6.7) 10^3/uL Absolute Lymphocytes 1.03 L (1.2-3.4) 10^3/uL Absolute Monocytes 0.76 (0.1-0.8) 10^3/uL Absolute Eosinophils 0.09 (0.0-0.7) 10^3/uL Absolute Basophils 0.05 (0.0-0.2) 10^3/uL RBC Morphology See Below Polychromasia Present Hypochromasia 2+ Anisocytosis 1+ Sodium 143 (136-145) mmol/L Potassium 4.8 (3.5-5.1) mmol/L Chloride 108 H (98-107) mmol/L Carbon Dioxide 25.4 (21.0-32.0) mmol/L Anion Gap 9.6 (3-11) mmol/L BUN 60 H (7-18) mg/dL Creatinine 2.0 H (0.55-1.02) mg/dL Est GFR (CKD-EPI 2020) 25.89 (mL/min/1.73m2) Glucose 76 (74-106) mg/dL Calcium 8.7 (8.5-10.1) mg/dL Magnesium 2.2 (1.8-2.4) mg/dL Total Bilirubin 0.20 (0.2-1.0) mg/dL AST 12 L (15-37) U/L ALT 15 (14-59) U/L Alkaline Phosphatase 85 (46-116) U/L Troponin I 23 22 (<or=51) ng/L Total Protein 6.8 (6.4-8.2) g/dL Albumin 3.1 L (3.4-5.0) g/dL TSH 6.60 H (0.36-3.74) uIU/mL Free T4 0.88 (0.76-1.46) ng/dL Urine Color Urine Clarity Urine pH Ur Specific Paden Urine Protein Urine Ketones Urine Blood Urine Nitrite Urine Bilirubin Urine Urobilinogen Ur Leukocyte Esterase Urine Glucose Urine Opiates Screen Acetaminophen (10-30) ug/mL Ur Barbiturates Screen Ur Tricyclics Screen Ur Amphetamines Screen U Benzodiazepines Scrn Urine Cocaine Screen Ur THC Screen COVID-19 Source Nasopharynx SARS-CoV-2 (PCR) Negative (Negative) Influenza Type A (PCR) Negative (Negative) Influenza Type B (PCR) Negative (Negative) RSV (PCR) Negative (Negative) ABO/Rh Antibody Screen Crossmatch [id number] Documentation Fingerstick Glucose Start: 09/06/24 10:44 Freq: Status: Active Protocol: Activity Type Activity Date Activity User E-sign Co-sign Detail Recorded Client Recorded Date Recorded By Document 09/06/24 14:19 LINDSEYG DAEMON(10) [id number] 09/06/24 14:20 BKG DAEMON(10) Intake and Output - 24 Hour Total 09/06/24 10:30 thru 09/06/24 10:36 Weight 107.501 kg Falls Risk Assessment History of Falls No History 09/06/24 11:01 Contributing Factors Impairments 09/06/24 11:01 Ambulatory Aids Uses ambulatory device 09/06/24 11:01 Tubes/Lines W/no contributing factors 09/06/24 11:01 Gait Evaluation W/no contributing factors 09/06/24 11:01 Cognition No cognitive impairment 09/06/24 11:01 Fall Total Score 38 09/06/24 11:01 Level of Risk Moderate Risk 09/06/24 11:01 Problems (Last Reviewed 09/06/24 @ 13:01 by Roly Flanagan MD) Discharge planning issues (Acute) KEVIN (acute kidney injury) (Acute) Acute confusion (Acute) Epistaxis (Acute) Severe anemia (Acute) Lipodermatosclerosis (Acute) Essential thrombocythemia (Acute) Type 2 diabetes mellitus with circulatory disorder, with long-term current use of insulin (Acute) v v v v v v v v v Sending and/or Receiving Nurses: Please use comment section below to note any information pertinent to the patient hand-off not included above. Information / Comments: report received. Report received from: Nova Pompa RN at [id number].
[2024-09-06 15:14] LABS: *AMPHETAMINES SCREEN URINE Negative (Negative); *BARBITURATES SCREEN URINE Negative (Negative); *BENZODIAZEPINES SCREEN URINE Negative (Negative); Cannabinoids THC Negative (Negative); Cocaine Screen,Urine Negative (Negative); METHADONE URINE SCREEN Negative (Negative); OPIATES URINE SCREEN Negative (Negative)
[2024-09-06 15:17] LABS: Tricyclic Antidepressants Negative (Negative)
[2024-09-06] MEDS: Cyclobenzaprine 10 MG TAB PO ×2 (15:26→20:53)
[2024-09-06] MEDS: fentaNYL 12 MCG PATCH TD (15:40)
[2024-09-06 16:05] LABS: Lab Add On Test DONE
[2024-09-06 16:12] LABS: Reticulocyte 3.6 % (0.5-2.4)
[2024-09-06 16:18] LABS: Iron 10 ug/dL (50-170); Total Iron Binding Capacity 372 ug/dL (250-450); Transferrin Sat 3 % (15-50)
[2024-09-06 16:45] LABS: Folate 8.2 ng/mL (8.6-20.0); TSH 5.98 uIU/mL (0.36-3.74); Vitamin B12 449 pg/mL (193-986)
[2024-09-06] MEDS: Lidocaine 2% Jelly 6 ML SYR TP (17:18)
[2024-09-06 19:06] LABS: HCT 22.4 % (36.0-46.0)
[2024-09-06 19:08] LABS: HGB 6.7 g/dL (11.2-15.7)
[2024-09-06] MEDS: Carvedilol 12.5 MG TAB PO (20:14)
[2024-09-06] MEDS: Magnesium Oxide 400 MG TAB PO (20:14)
[2024-09-06] MEDS: oxyCODONE 5 MG TAB PO (20:53)
[2024-09-06] MEDS: Normal Saline Flush 10 ML SYR IVP (23:01)
[2024-09-07] VITALS (7 sets, daily range): BP systolic 118–152; BP diastolic 37–58; PULSE 69–78; RESP 16–20; TEMP 36.3–37.1; O2SAT 94–98
[2024-09-07 06:44] LABS: Absolute Basophil Count 0.05 10^3/uL (0.0-0.2); Absolute Eosinophil Count 0.09 10^3/uL (0.0-0.7); Absolute Neutrophil Count 9.99 10^3/uL (1.2-6.7); Basophils % 0.4 %; Eosinophils % 0.8 %; HCT 28.4 % (36.0-46.0); HGB 8.5 g/dL (11.2-15.7); Immature Grans % 0.8 %; MCH 28.5 pg (27.0-33.0); MCHC 29.9 % (32.0-36.0); MCV 95 fL (80-95); Monocytes % 4.6 %; Neutrophils % 84.4 %; Nucleated RBC 0.2 % (0.0-0.3); Platelet Count 567 10^3/uL (130-400); RBC 2.98 10^6/uL (3.93-5.22); RDW 19.2 % (11.7-14.6); RDW-SD 66.5 fL; WBC 11.84 10^3/uL (4.4-10.8)
[2024-09-07 06:46] LABS: Absolute Lymphocyte Count 1.07 10^3/uL (1.2-3.4); Absolute Monocyte Count 0.54 10^3/uL (0.1-0.8)
[2024-09-07 07:01] LABS: Anion Gap 7.5 mmol/L (3-11); BUN 59 mg/dL (7-18); CO2 25.5 mmol/L (21.0-32.0); CREATININE 1.7 mg/dL (0.55-1.02); Chloride 109 mmol/L (98-107); Estimated GFR 31.47 (mL/min/1.73m2); Glucose 57 mg/dL (74-106); Potassium 5.2 mmol/L (3.5-5.1); Sodium 142 mmol/L (136-145)
[2024-09-07] MEDS: Normal Saline Flush 10 ML SYR IVP ×3 (08:05→13:21)
[2024-09-07] MEDS: DULoxetine 30 MG CAP PO (08:07)
[2024-09-07] MEDS: Carvedilol 12.5 MG TAB PO (08:07)
[2024-09-07] MEDS: DULoxetine 30 MG CAP 60 MG PO (08:07)
[2024-09-07] MEDS: Atorvastatin 40 MG TAB PO (08:08)
[2024-09-07] MEDS: Ferrous Sulfate 325 MG TAB PO (08:08)
[2024-09-07] MEDS: Furosemide 20 MG TAB PO (08:08)
[2024-09-07] MEDS: Folic Acid 1 MG TAB PO (08:09)
[2024-09-07] MEDS: Spironolactone 25 MG TAB PO (08:09)
--- NOTE | 2024-09-07 08:42 | INITIAL_ITS ---
Date of service: 09/07/24 Time of Service: 08:43 Care Management Initial Assmt Initial Assessment Reason for Hospitalization: Acute Anemia Functional Status/Living Situation Patient Presentation: Emilia is sitting in a recliner when CM met with her. She is talkative and pleasant. Emilia identified that she lives with her son Ki and her great granddaughter Rachel (whom she raised). During our conversation she also mentioned her daughter Leslye, and stated that the two are not on speaking terms. Emilia also shared that she had a below the knee amputation several years ago and has remained active and independent. Emilia will be a resumption of [facility] RN/PT services when medically ready for discharge, which will likely be this afternoon after her Iron infusion. Town of Residence: [place] Resides with: Child (Son Ki and Great Granddaughter Rachel) Significant Other/Family: [facility] Employment Status: Retired Instrumental Activities of Daily Living (ADLs): Independent Medications Medication Management: No Issues/Barriers identified Physical Functioning/Mobility Assistive Device: Prosthetic leg Uses a can outside Uses a walker, occasionally Advance Directives Advance Directives: Do you have an Advance Directive: Y 01/15/14 13:08 AD On File at [facility]: Y 11/14/12 10:42 Date Asked 09/06/24 09/06/24 15:02 AD Date Reviewed 06/24/24 06/17/24 07:49 COLST On File at [facility] COLST Date Scanned Code Status Resuscitation Status Full Code Insurance Coverage/Financial Issues Insurance: /[facility] Medicare Care Team Visit Care Team Role Provider Type Gui Graham MD Primary Care Provider [facility] STAFF PHYSICIAN Roly Flanagan MD Emergency Provider [facility] STAFF PHYSICIAN Mahin Espinal MD Admit Provider [facility] STAFF PHYSICIAN Attending Provider Discharge Potential Discharge Needs: PCP F/U Appt Anticipated Barriers to Discharge: None Identified Patient/Family Education Needs: Review discharge instructions, discuss Ask Me Three Transportation: Private vehicle Plan: Discharge home with resumption of [facility] services. Follow up with community providers and discharge plan of care as directed. Son will provide transportation. 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 Harvey. Osteoarthritis of right hip (Chronic) Injection under fluoroscopy: 10/01/2019 RLS (restless legs syndrome) (Chronic) Primary osteoarthritis of right knee (Chronic) Chronic pain of left lower extremity (Chronic) await human performance technologist recommendations Polyp of colon (Acute 09/15/09) 09/25 COLONOSCOPY: ONE TUBULAR ADENOMA AND FOUR HYPERPLASTIC POLYPS. ALEX (obstructive sleep apnea) (Chronic 03/11/18) not on CPAP due to bedroom size Hyperlipidemia (Acute 01/14/14) History of tobacco use (Acute) Essential hypertension (Acute 08/18/13) Cataracts, both eyes (Acute) 11/11/15 OPTICAL EXPRESSIONS; EARLY CATARACTS B12 deficiency (Acute 04/08/15) Atherosclerosis of [place] coronary artery (Acute) Stent RCA 2006 Hyperlipidemia (Chronic) Hypertension (Chronic) CAD (coronary artery disease) (Chronic) S/P stent 2004 Peripheral vascular disease (Chronic) S/P right SFA antioplasty an sstenting, 2003. Left DVA to [place] popliteal bypass with [place], 2003. Bypass Left Stent Right 2005 left BKA 08/28 Medical History Venous insufficiency of leg Atrial fibrillation Fracture, femur closed, shaft (05/13/22) (L) Carpal tunnel syndrome (05/16/09) Hypertension History of tobacco abuse Quit 2004 Surgical History Status post amputation of lesser toe of right foot History of left hip replacement History of total replacement of left shoulder joint 02/08/23. -hb S/P peripheral artery angioplasty with stent placement Status post below-knee amputation of left lower extremity (2012) History of total right hip replacement (08/03/20) Hx of tubal ligation History of carpal tunnel release Bilaterally Family History Mother , 74 Neoplasm UTERINE Osteoporosis Uterine cancer Lung cancer Father Lung cancer Sister Neoplasm MELANOMA Breast cancer Sister No problems noted. Sister Skin cancer Brother No problems noted. Son Alcohol abuse Depression Maternal Grandfather Stomach cancer Paternal Grandfather No problems noted. Maternal Grandmother No problems noted. Paternal Grandmother No problems noted. Daughter Depression Social History Smoking/Tobacco Use Status: Former Tobacco Use tobacco type: cigarettes Quit Date: 09/16/04 Tobacco: How many years used: 37 Second Hand Exposure: Yes Smoking risk assessment performed?: Yes Alcohol Intake: current Alcohol Intake frequency: a few times a month Alcohol type: beer and hard liquor Drug use: Never Substance use type: does not use Details: Patient drank a alcoholic beverage yesterday (06/23) Caregiver/Support person: No Household members: none Housing: house Do you need help understanding health information?: Rarely current occupation: [employer] Pets and animals: Yes Pets and animals: cat(s) Sexually active: No Do you think of yourself as: straight/heterosexual Current gender identity: female What is your relationship status?: How often do you talk on the phone with friends or family?: three or more times per week How often do you get together with friends or relatives?: decline to answer How often do you attend samaritan or samaritan services?: 1-3 times per year Do you belong to any clubs or organized social groups?: no Panel score (0-1 are the most socially isolated patients): 2 What type of physical activity do you participate in: none Carmelina/Hindu: Druze Special carmelina needs: No Seatbelt use: always Helmet use: Yes Helmet use: always Drive intox 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 taxi driver: No Do you feel safe at home: Yes Do you feel safe in your relationship?: Yes Would you like helpful sources: No SDOH(Care Management) Screening Will the Patient Participate in the Screening?: Yes Do you worry about having a steady place to live?: no In the past 12 months, have you had to go without electric, gas, oil or water in your home?: no Have you or anyone in your house had to go without enough food to eat?: no Has lack of transportation kept you from medical appointments or from doing things needed for daily living?: no Has anyone in your support network made you feel unsafe for any reason?: no
[2024-09-07] MEDS: Hydroxyurea 500 MG CAP PO (09:33)
[2024-09-07] MEDS: Insulin Glargine 300 UNITS/3 ML PEN 48 UNITS SC (10:42)
--- NOTE | 2024-09-07 11:14 | DSE_ITS ---
Date of service: 09/07/24 Time of Service: 11:15 DS: Diagnosis Discharge Diagnosis (1) Severe anemia: Status: Acute (2) Peripheral vascular disease: Status: Chronic (3) Type 2 diabetes mellitus with circulatory disorder, with long-term current use of insulin: Status: Acute (4) Essential thrombocythemia: Status: Acute (5) Epistaxis: Status: Acute (6) Acute confusion: Status: Acute (7) KEVIN (acute kidney injury): Status: Acute (8) Lipodermatosclerosis: Status: Acute Discharge Plan Disposition Patient Disposition: Home W/Home Health Services Condition: Improving Discharge Details Reason For Visit: Anemia,Acute Admit Date/Time: 09/06/24 13:53 Admit Provider: Mahin Espinal Attending Provider: Mahin Espinal Primary Care Provider: Gui Graham Hospital Course Hospital Course: This is a 73-year-old female patient significant past medical history including diabetes mellitus type 2 peripheral arterial disease fully anticoagulated on apixaban, chronic kidney disease, essential thrombocythemia, amputation right lower extremity who presented to the emergency department with complaints of malaise and confusion. Her workup in the emergency department did show acute anemia with a hemoglobin of 5.9 which was down from 11 a few months ago. She does state that she has had intermittent nosebleeds and that she had 1 episode that lasted approximately 8 hours. Additionally she takes a baby aspirin. She was recently started on fentanyl patch for chronic pain. She has had no fevers no history of abdominal pain nausea or vomiting. No history of GI bleed. She was admitted to the hospitalist services and did receive 2 units of packed red blood cells her apixaban and aspirin were placed on hold while hospitalized. Her hemoglobin did go up to 8.5 and stayed stable additionally she was found to be iron deficient and acute on chronic kidney injury her anemia is likely multifactorial with acute blood loss from her epi taxis and chronic kidney disease and iron deficiency. She was hemodynamically stable. She did receive a dose of 300 mg of IV iron. She will be started on daily iron supplementation. She is being discharged to home she was advised to resume her anticoagulation as long as she has no further nosebleeds. She was advised to watch for symptoms of anemia and to return to the emergency department immediately if they should recur. She should have her lab rechecked on or Saturday of this week and follow-up with her primary care provider outpatient. Discharge discussed with Dr. Espinal Home Meds and New Rx's Prescriptions: New ferrous sulfate 325 mg (65 mg iron) Tablet 325 mg PO DAILY Qty: 30 0RF Continued carvedilol 12.5 mg tablet 12.5 mg PO BID Rx Instructions: must administer with a meal/food Mounjaro 2.5 mg/0.5 mL pen injector 2.5 mg subcut QWEEK MDD 2.5 28 Days Qty: 2 12RF Rx Instructions: Inject 2.5 mg subcutaneously once weekly as directed. fentanyl 12 mcg/hr patch 72 hour 1 patch transdermal Q72H MDD 1 patch Qty: 5 0RF (DME) Dexcom G7 Corner Bead Operator Misc See Rx Instructions .Route Qty: 1 0RF Rx Instructions: As directed (DME) Dexcom G7 Sensor Device See Rx Instructions .Route Qty: 1 11RF Rx Instructions: As directed vibegron 75 mg tablet 75 mg PO DAILY Qty: 90 3RF Rx Instructions: per [facility] gyne, for urge incontinence potassium chloride 10 mEq tablet extended release 10 meq PO DAILY Qty: 90 3RF (DME) blood-glucose meter [Accu-Chek Guide Glucose Meter] Misc See Rx Instructions .ROUTE .MEDSUPPLY Qty: 1 0RF Rx Instructions: test as directed (DME) insulin syringe-needle U-100 [BD Insulin Syringe Ultra-Fine] 1 mL 31 gauge x 5/16 syringe See Rx Instructions .ROUTE .MEDSUPPLY Qty: 180 3RF Rx Instructions: 1 injection sq BID folic acid 1 mg tablet 1 mg PO DAILY (DME) Accu-Chek Guide test strips Strip 1 ea Miscellaneous DAILY Qty: 300 3RF Rx Instructions: test 3 x day (DME) lancets Misc 1 ea Miscellaneous DAILY Qty: 300 3RF Rx Instructions: test 3 x /day magnesium 250 mg tablet 500 mg PO QHS Eliquis 5 mg tablet 5 mg PO BID Qty: 60 11RF Rx Instructions: Per discharge from [facility] on 05/18/2022 atorvastatin 40 mg tablet 40 mg PO DAILY Qty: 90 3RF chlorthalidone 50 mg tablet 100 mg PO DAILY Qty: 180 3RF duloxetine 60 mg capsule,delayed release(DR/EC) 60 mg PO DAILY Qty: 90 3RF duloxetine 30 mg capsule,delayed release(DR/EC) 30 mg PO DAILY Qty: 90 3RF Rx Instructions: take with a 60 mg capsule to equal 90 mg/day furosemide 20 mg tablet 20 mg PO DAILY Qty: 90 3RF metformin 500 mg tablet 500 mg PO BID Qty: 180 3RF ropinirole 8 mg tablet extended release 24 hr 8 mg PO DAILY Qty: 90 3RF spironolactone [Aldactone] 25 mg tablet 25 mg PO DAILY Qty: 90 3RF hydroxyurea 500 mg capsule 500 - 1,000 mg PO DAILY Qty: 115 3RF Rx Instructions: 500 mg/day except take 1000 mg Sat and Saturday aspirin [Adult Aspirin Regimen] 81 mg tablet,delayed release (DR/EC) 81 mg PO DAILY insulin degludec [Tresiba FlexTouch U-200] 200 unit/mL (3 mL) insulin pen 120 unit subcut HS Rx Instructions: Inject 120 units subcutaneously once daily as directed ibuprofen 600 mg tablet 600 mg PO TID PRN (Reason: pain) Qty: 90 0RF losartan 100 mg tablet 100 mg PO HS Discharge Instructions Instructions: Anemia, Possibly From Low Iron, Adult ED Additional Instructions: You have received 2 units of packed red blood cells with improvement in your anemia. Your hemoglobin has been stable at 8.5. You are also found to be iron deficient and did receive IV iron you should continue taking iron supplementation at home. You can resume your usual medications as previously directed. See your primary care provider for repeat blood work please return sooner for new or worsening symptoms including dizziness chest pain shortness of breath black or tarry stools or any evidence of bleeding or any concerns. Please have your blood drawn on or Saturday of this week Referrals: Gui Graham MD [Primary Care Provider] - Activity:: Activity as Tolerated Equipment/Supplies:: No Equipment Needed Diet:: As Tolerated Discharge Orders Discharge Orders: Discharge Order (Routine); Ordered 09/07/24 Ordered By: Apryl Ovalle Other Ambulatory Orders: Complete Blood Count w/Diff (Routine) Timeframe: [id number] Facility: [facility] - Location: Laboratory Outpatient - [facility] Ordered By: Apryl Ovalle DS: Summary Time Spent with Patient providing and/or coordinating discharge services: Greater than 30 minutes Status at Discharge Functional status at discharge: independent ambulation Overall status at discharge: patient is progressing back to baseline Mental Status: mental status grossly normal Speech and Movement: speech and movement normal Mood: congruent mood Affect: normal affect Quality:SDOH Health Related Social Needs: No Data to Display Exam Narrative Exam Narrative: Elderly female of stated age no acute distress head is atraumatic oral mucosas moist skin is pink warm dry well-perfused respirations are even and unlabored a bdomen is round soft nontender extremities below the knee amputation on the left stump well-healed on the right no peripheral edema 3 stitches intact where fourth digit amputation site no erythema drainage wound is approximated. Arterial ulcers to anterior right lower extremity less than 2 cm's multiple sites slough in the wound bed weeping clear fluid no surrounding erythema no palpable pedal pulse reports painful. Neurologic she is awake alert oriented no focal deficits psychiatric appropriate mood and affect Psych Mental Status: mental status grossly normal Speech and Movement: speech and movement normal Mood: congruent mood Affect: normal affect DS: Data Vitals/I&O Vitals and I&O: Vital Signs Temperature 37.1 C 09/07/24 07:38 Temperature Source Temporal Artery Scan 09/07/24 07:38 Pulse 69 09/07/24 07:38 Pulse Rhythm Regular 09/06/24 16:27 Pulse 69 09/06/24 14:50 Respiratory Rate 16 09/07/24 07:38 Respiratory Effort Normal, Non-Labored 09/06/24 16:27 Respiratory Depth Normal 09/06/24 16:27 Respiratory Pattern Normal 09/06/24 16:27 Blood Pressure 152/37 H 09/07/24 07:38 Blood Pressure Mean 63 09/06/24 14:47 Pulse Oximetry 97 09/07/24 07:38 Oxygen Delivery Method Room Air 09/07/24 07:38 Oxygen Flow Rate 0 09/07/24 07:38 Pain Level 5 09/07/24 07:40 Comment RN present for vitals 09/06/24 15:06 Intake & Output 09/06/24 09/06/24 09/07/24 11:59 23:59 11:59 Intake Total 600 / 600 490 / 490 Output Total 450 / 450 1900 / 1900 Balance 150 / 150 -1410 / -1410 Weight 107.501 kg Intake: Oral 300 / 300 240 / 240 Blood Product 300 / 300 250 / 250 Rbc Leuko Reduced Unit 250 / 250 [id number] Rbc Leuko Reduced Unit 300 / 300 [id number] Output: Urine 450 / 450 1900 / 1900 Other: Urine Color Yellow Yellow Urine Appearance Clear Clear Urine Odor Normal None Data Completed and Pending Labs on day of discharge: Labs from last 24 hours 09/07/24 09/06/24 09/06/24 05:58 18:59 15:11 WBC 11.84 H RBC 2.98 L Hgb 8.5 L 6.7 L* Hct 28.4 L 22.4 L MCV 95 D MCH 28.5 MCHC 29.9 L RDW 19.2 H Plt Count 567 H MPV 10.0 Reticulocyte % (Auto) Immature Gran % 0.8 Neutrophils % 84.4 Lymphocytes % 9.0 Monocytes % 4.6 Eosinophils % 0.8 Basophils % 0.4 Nucleated RBC % 0.2 Absolute Neutrophils 9.99 H Absolute Lymphocytes 1.07 L Absolute Monocytes 0.54 Absolute Eosinophils 0.09 Absolute Basophils 0.05 RBC Morphology Polychromasia Hypochromasia Anisocytosis Sodium 142 Potassium 5.2 H Chloride 109 H Carbon Dioxide 25.5 Anion Gap 7.5 BUN 59 H Creatinine 1.7 H Est GFR (CKD-EPI 2020) 31.47 Glucose 57 L Calcium 9.0 Magnesium Iron TIBC Transferrin % Sat Total Bilirubin AST ALT Alkaline Phosphatase Troponin I Total Protein Albumin Vitamin B12 Folate TSH Free T4 Urine Color Urine Clarity Urine pH Ur Specific [place] Urine Protein Urine Ketones Urine Blood Urine Nitrite Urine Bilirubin Urine Urobilinogen Ur Leukocyte Esterase Urine Glucose Urine Opiates Screen Urine Methadone Screen Acetaminophen Ur Barbiturates Screen Ur Tricyclics Screen Ur Amphetamines Screen U Benzodiazepines Scrn Urine Cocaine Screen Ur THC Screen COVID-19 Source SARS-CoV-2 (PCR) Influenza Type A (PCR) Influenza Type B (PCR) RSV (PCR) Add-On Test Request DONE ABO/Rh Antibody Screen Crossmatch 09/06/24 09/06/24 09/06/24 14:44 13:30 12:40 WBC RBC Hgb Hct MCV MCH MCHC RDW Plt Count MPV Reticulocyte % (Auto) Immature Gran % Neutrophils % Lymphocytes % Monocytes % Eosinophils % Basophils % Nucleated RBC % Absolute Neutrophils Absolute Lymphocytes Absolute Monocytes Absolute Eosinophils Absolute Basophils RBC Morphology Polychromasia Hypochromasia Anisocytosis Sodium Potassium Chloride Carbon Dioxide Anion Gap BUN Creatinine Est GFR (CKD-EPI 2020) Glucose Calcium Magnesium Iron TIBC Transferrin % Sat Total Bilirubin AST ALT Alkaline Phosphatase Troponin I Total Protein Albumin Vitamin B12 Folate TSH Free T4 Urine Color Yellow Urine Clarity Clear Urine pH 5.0 Ur Specific [place] 1.015 Urine Protein Negative Urine Ketones Negative Urine Blood Negative Urine Nitrite Negative Urine Bilirubin Negative Urine Urobilinogen 0.2 Ur Leukocyte Esterase Negative Urine Glucose Negative Urine Opiates Screen Negative Urine Methadone Screen Negative Acetaminophen < 2 Ur Barbiturates Screen Negative Ur Tricyclics Screen Negative Ur Amphetamines Screen Negative U Benzodiazepines Scrn Negative Urine Cocaine Screen Negative Ur THC Screen Negative COVID-19 Source SARS-CoV-2 (PCR) Influenza Type A (PCR) Influenza Type B (PCR) RSV (PCR) Add-On Test Request ABO/Rh A Positive Antibody Screen NEGATIVE Crossmatch See Detail 09/06/24 09/06/24 09/06/24 11:57 10:54 10:54 WBC 13.03 H RBC 2.07 L Hgb 5.9 L* Hct 20.5 L* MCV 99 H MCH 28.5 MCHC 28.8 L RDW 18.1 H Plt Count 609 H MPV 10.2 Reticulocyte % (Auto) 3.6 H Immature Gran % 1.0 Neutrophils % 84.2 Lymphocytes % 7.9 Monocytes % 5.8 Eosinophils % 0.7 Basophils % 0.4 Nucleated RBC % 0.0 Absolute Neutrophils 10.97 H Absolute Lymphocytes 1.03 L Absolute Monocytes 0.76 Absolute Eosinophils 0.09 Absolute Basophils 0.05 RBC Morphology See Below Polychromasia Present Hypochromasia 2+ Anisocytosis 1+ Sodium 143 Potassium 4.8 Chloride 108 H Carbon Dioxide 25.4 Anion Gap 9.6 BUN 60 H Creatinine 2.0 H Est GFR (CKD-EPI 2020) 25.89 Glucose 76 Calcium 8.7 Magnesium 2.2 Iron 10 L TIBC 372 Transferrin % Sat 3 L Total Bilirubin 0.20 AST 12 L ALT 15 Alkaline Phosphatase 85 Troponin I 23 22 Total Protein 6.8 Albumin 3.1 L Vitamin B12 449 Folate 8.2 L TSH 5.98 H 6.60 H Free T4 0.88 Urine Color Urine Clarity Urine pH Ur Specific [place] Urine Protein Urine Ketones Urine Blood Urine Nitrite Urine Bilirubin Urine Urobilinogen Ur Leukocyte Esterase Urine Glucose Urine Opiates Screen Urine Methadone Screen Acetaminophen Ur Barbiturates Screen Ur Tricyclics Screen Ur Amphetamines Screen U Benzodiazepines Scrn Urine Cocaine Screen Ur THC Screen COVID-19 Source Nasopharynx SARS-CoV-2 (PCR) Negative Influenza Type A (PCR) Negative Influenza Type B (PCR) Negative RSV (PCR) Negative Add-On Test Request ABO/Rh Antibody Screen Crossmatch [facility] All Active Problems (Updated 09/06/24 @ 13:31 by Apryl Ovalle NP) Discharge planning issues (Acute) KEVIN (acute kidney injury) (Acute) Acute confusion (Acute) Epistaxis (Acute) Severe anemia (Acute) Multiple open wounds of right lower leg (Acute) Chronic pain of right lower extremity (Acute) Bilateral carpal tunnel syndrome (Acute) B/L ECTR: 06/24/2024 Ulnar neuropathy of both upper extremities (Acute) Renal lesion (Acute) Phlegm in throat (Acute) Hand numbness (Acute) Lipodermatosclerosis (Acute) Bladder leak (Acute) Weight gain (Acute) Rash (Acute) Change in bowel habits (Acute) 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 Harvey. Osteoarthritis of right hip (Chronic) Injection under fluoroscopy: 10/01/2019 RLS (restless legs syndrome) (Chronic) Primary osteoarthritis of right knee (Chronic) Chronic pain of left lower extremity (Chronic) await lead injection mold technician recommendations Polyp of colon (Acute 09/15/09) 09/25 COLONOSCOPY: ONE TUBULAR ADENOMA AND FOUR HYPERPLASTIC POLYPS. ALEX (obstructive sleep apnea) (Chronic 03/11/18) not on CPAP due to bedroom size Hyperlipidemia (Acute 01/14/14) History of tobacco use (Acute) Essential hypertension (Acute 08/18/13) Cataracts, both eyes (Acute) 11/11/15 OPTICAL EXPRESSIONS; EARLY CATARACTS B12 deficiency (Acute 04/08/15) Atherosclerosis of [place] coronary artery (Acute) Stent RCA 2006 Hyperlipidemia (Chronic) Hypertension (Chronic) CAD (coronary artery disease) (Chronic) S/P stent 2004 Peripheral vascular disease (Chronic) S/P right SFA antioplasty an sstenting, 2003. Left DVA to [place] popliteal bypass with [place], 2003. Bypass Left Stent Right 2005 left BKA 08/28 Medical History Venous insufficiency of leg Atrial fibrillation Fracture, femur closed, shaft (05/13/22) (L) Carpal tunnel syndrome (05/16/09) Hypertension History of tobacco abuse Quit 2004 Surgical History Status post amputation of lesser toe of right foot History of left hip replacement History of total replacement of left shoulder joint 02/08/23. -hb S/P peripheral artery angioplasty with stent placement Status post below-knee amputation of left lower extremity (2012) History of total right hip replacement (08/03/20) Hx of tubal ligation History of carpal tunnel release Bilaterally Family History Mother , 74 Neoplasm UTERINE Osteoporosis Uterine cancer Lung cancer Father Lung cancer Sister Neoplasm MELANOMA Breast cancer Sister No problems noted. Sister Skin cancer Brother No problems noted. Son Alcohol abuse Depression Maternal Grandfather Stomach cancer Paternal Grandfather No problems noted. Maternal Grandmother No problems noted. Paternal Grandmother No problems noted. Daughter Depression Social History Smoking/Tobacco Use Status: Former Tobacco Use tobacco type: cigarettes Quit Date: 09/16/04 Tobacco: How many years used: 37 Second Hand Exposure: Yes Smoking risk assessment performed?: Yes Alcohol Intake: current Alcohol Intake frequency: a few times a month Alcohol type: beer and hard liquor Drug use: Never Substance use type: does not use Details: Patient drank a alcoholic beverage yesterday (06/23) Caregiver/Support person: No Household members: none Housing: house Do you need help understanding health information?: Rarely current occupation: [employer] Pets and animals: Yes Pets and animals: cat(s) Sexually active: No Do you think of yourself as: straight/heterosexual Current gender identity: female What is your relationship status?: How often do you talk on the phone with friends or family?: three or more times per week How often do you get together with friends or relatives?: decline to answer How often do you attend shinto or methodist services?: 1-3 times per year Do you belong to any clubs or organized social groups?: no Panel score (0-1 are the most socially isolated patients): 2 What type of physical activity do you participate in: none Carmelina/Evangelical: Mosque Special carmelina needs: No Seatbelt use: always Helmet use: Yes Helmet use: always Drive intox 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
[2024-09-07] MEDS: IRON SUCROSE COMPLEX 300 MG in Normal Saline 250 ML 167 MG IVPB (11:29)
[2024-09-07] MEDS: Insulin Aspart 300 UNITS/3 ML PEN SC (12:07)
--- NOTE | 2024-09-07 14:00 | CMDISCH_ITS ---
Care Management Discharge Plan Reason for Hospitalization: Anemia Discharge Plan: Discharge home with resumption of [facility] RN and PT. Follow up with community providers and discharge plan of care as directed. Transportation will be provided by her son. Patient/Family Education Needs: Review discharge instructions, limitations, medications and plan to follow up with community providers. Discuss ask me three. Services Needed at Discharge: Home Health Care Services (Resumption of services) SDOH Health Related Social Needs: No Data to Display
[2024-09-07 14:35] LABS: HCT 26.5 % (36.0-46.0); HGB 8.5 g/dL (11.2-15.7)
[2024-09-07] MEDS: oxyCODONE 5 MG TAB PO (15:34)
== END 2024-09-07 16:49 | disposition home health service (06) ==
LOC: ER 13:59 → MS 15:02
PROVIDERS: Nurse Practitioner Acute Care; Admitting Provider Family Medicine; Emergency Provider Student in an Organized Health Care Education/Training Program; PCP Family Medicine; Visit Provider Family Medicine
DX: D62 Acute posthemorrhagic anemia (principal); R04.0 Epistaxis; I73.9 Peripheral vascular disease, unspecified; E11.59 Type 2 diabetes mellitus with other circulatory complications; D47.3 Essential (hemorrhagic) thrombocythemia; Z79.4 Long term (current) use of insulin; R41.0 Disorientation, unspecified; N17.9 Acute kidney failure, unspecified; M79.3 Panniculitis, unspecified; Z79.01 Long term (current) use of anticoagulants; Z79.891 Long term (current) use of opiate analgesic; Z89.511 Acquired absence of right leg below knee; G89.29 Other chronic pain; I25.10 Atherosclerotic heart disease of native coronary artery without angina pectoris; I10 Essential (primary) hypertension; E78.5 Hyperlipidemia, unspecified; D53.8 Other specified nutritional anemias; I48.91 Unspecified atrial fibrillation; Z87.891 Personal history of nicotine dependence; I87.2 Venous insufficiency (chronic) (peripheral)
CPT/HCPCS: 00123; 36415; 36416; 36430; 80048; 80053; 80307; 82962; 86850; 86900; 86901; 86920; 87637; 93005; 96365; 96366; 96372; 99291; 70450; 71046; 80329; 81003; 82607; 82746; 83540; 83550; 83735; 84439; 84443; 84484; 85014; 85018; 85025; 85045; 93010; 99222; 99239; G0378; J1756; J1815; J9999; P9016

== ENCOUNTER 2024-09-17 16:22 | Inpatient (IN) | payer MEDICARE, BC, SELFPAY ==
[2024-09-17] VITALS (56 sets, daily range): BP systolic 101–165; BP diastolic 26–101; PULSE 68–88; RESP 11–25; TEMP 36.2–36.9; O2SAT 90–99
--- NOTE | 2024-09-17 16:15 | RT.EKG_ITS ---
APPROVED REPORT Exam: Resting ECG Reason for Exam: Chest Pain Patient Location: E HR:78 bpm ECG Measurements Heart Rate 78 AXIS FL 175 P 41 QRSd 90 QRS 27 QT 379 T 73 QTc 431 Conclusion Sinus rhythm...normal P axis, V-rate 60- 99 Low voltage, precordial leads...precordial leads <1.0mV I have reviewed and interpreted ECG and agree with software generated interpretation.
[2024-09-17 17:17] LABS: Abs Immature Grans 0.36 10^3/uL (0.0-0.06); Absolute Basophil Count 0.08 10^3/uL (0.0-0.2); Absolute Eosinophil Count 0.07 10^3/uL (0.0-0.7); Absolute Lymphocyte Count 1.29 10^3/uL (1.2-3.4); Basophils % 0.6 %; Eosinophils % 0.5 %; HCT 23.5 % (36.0-46.0); Immature Grans % 2.6 %; Lymphocytes % 9.4 %; MCH 29.5 pg (27.0-33.0); MCHC 29.4 % (32.0-36.0); MCV 100 fL (80-95); MPV 10.1 fL (8.0-11.0); Monocytes % 6.3 %; Neutrophils % 80.6 %; Nucleated RBC 0.2 % (0.0-0.3); Platelet Count 311 10^3/uL (130-400); RBC 2.34 10^6/uL (3.93-5.22); RDW 19.9 % (11.7-14.6); RDW-SD 71.8 fL; WBC 13.73 10^3/uL (4.4-10.8)
[2024-09-17 17:22] LABS: Absolute Monocyte Count 0.86 10^3/uL (0.1-0.8); Absolute Neutrophil Count 11.07 10^3/uL (1.2-6.7)
[2024-09-17 17:24] LABS: HGB 6.9 g/dL (11.2-15.7)
[2024-09-17 17:35] LABS: Anisocytosis 2+; Hypochromasia 3+; Polychromasia Present
[2024-09-17 17:46] LABS: D-Dimer 527 ng/mlFEU (<500)
[2024-09-17 17:49] LABS: ALT 16 U/L (14-59); AST 10 U/L (15-37); Alkaline Phosphatase 77 U/L (46-116); Anion Gap 12.3 mmol/L (3-11); BUN 39 mg/dL (7-18); Bilirubin, Total 0.33 mg/dL (0.2-1.0); CO2 24.7 mmol/L (21.0-32.0); CREATININE 1.9 mg/dL (0.55-1.02); Calcium 8.8 mg/dL (8.5-10.1); Chloride 107 mmol/L (98-107); Estimated GFR 27.54 (mL/min/1.73m2); Glucose 84 mg/dL (74-106); NT-proBNP 1046 pg/mL (<300); Potassium 4.8 mmol/L (3.5-5.1); Sodium 144 mmol/L (136-145); Total Protein 6.8 g/dL (6.4-8.2); Troponin I 9 ng/L (<or=51)
--- NOTE | 2024-09-17 18:00 | DI.RAD_ITS ---
Exam(s) XR CHEST 2V PA LATERAL EXAM: XR CHEST 2V PA LATERAL CLINICAL HISTORY: shortness of breath TECHNIQUE: 2D digital imaging was performed. Two views. COMPARISON: CR,XR XR CHEST 2V PA LATERAL from 09/06/2024 FINDINGS: HEART: Normal size. Aorta: Mildly enlarged. PULMONARY VASCULATURE: Normal. MEDIASTINUM: Unremarkable. LUNGS: Clear. PLEURAL SPACE: No pleural effusion or pneumothorax. BONE:Old right rib fractures. Left shoulder prosthesis. SOFT TISSUES: Unremarkable. IMPRESSION: No acute abnormality. DATA REPOSITORY: RADIATION DOSE DELIVERED:
[2024-09-17 18:03] LABS: Lipase 81 U/L (<78)
[2024-09-17 18:49] LABS: Troponin I 10 ng/L (<or=51)
--- NOTE | 2024-09-17 18:57 | NUR.NOTE ---
Nursing Note: hand off given to material handler 1st shift RINKU, RN
--- NOTE | 2024-09-17 20:18 | W.PM.HP.N ---
Date of service: 09/17/24 Time of Service: 20:18 Assessment and Plan Assessment and plan (1) Symptomatic anemia: Status: Acute Assessment and plan: -patient presented with exertional chest pain with negative trop and normal EKG -found to have Hb of 6.9, (down from mid 8's ~ 1 week ago) and said to have had multiple episode of epistaxis -ED discussed with [facility] cardiology; will transfuse and obtain TTE -ordered for 1U PRBCs, will monitor f/u Hb and give additional unit as needed -holding home ASA and eliquis -consider discusing with ENT for possible outpatient cauterization (2) Epistaxis: Status: Acute Assessment and plan: -as noted above, not currently active (3) RLS (restless legs syndrome): Status: Chronic Assessment and plan: -continue home ropinerole (4) Hyperlipidemia: Status: Acute Assessment and plan: -continue home statin (5) Essential hypertension: Status: Acute Assessment and plan: -continue home spironolactone, losartan, lasix, chlorthalidone (6) CAD (coronary artery disease): Status: Chronic Assessment and plan: -contine regimen as noted above -holding ASA as noted above (7) Chronic pain: Status: Chronic Assessment and plan: -continue home fentanyl patch (8) Type 2 diabetes mellitus with circulatory disorder, with long-term current use of insulin: Status: Acute Assessment and plan: -continue home insulin regimen -SSI, CCD History of Present Illness History of Present Illness Chief Complaint: Chest pain Narrative: 73-year-old female with a past medical history of coronary artery disease, iron deficiency anemia, episodes of epistaxis, restless leg syndrome, hyperlipidemia, hypertension, IDDM, who presents to the emergency department with complaints of chest pain. Patient states that she has been experiencing worsening chest pain over the last week particularly with exertion. Of note patient was recently hospitalized for anemia and so this is likely due to her recurrent episodes of epistaxis though she has yet to follow-up with ENT. Since being discharged in the hospital she has had 3 additional episodes of epistaxis predominantly out of the right nare. She states that her chest pain is similar to when she had NM and stenting in 2013 describing it as pressure-like and substernal area without any radiation. She denies any headache, lightheadedness, dizziness, shortness of breath, nausea vomiting or diarrhea. In the emergency department the patient was noted send normal vital signs, normal appearing, was not having any active bleeding. BMP was unremarkable, EKG without any ischemic changes, troponins were negative, patient did have a CBC with hemoglobin of 6.9 which is down from 8.5 on 09/07/2024. Emergency room PA reached out to [facility] [place] cardiology who believe this was secondary to blood loss anemia recommended transfusing and obtaining echocardiogram in the morning. At which time patient was given 1 unit of packed red blood cells in emergency room PA paged hospitalist for admission for patient with symptomatic anemia requiring transfusion. Review of Systems All systems reviewed & are unremarkable except as noted in HPI and below PFSH All Active Problems (Updated 09/17/24 @ 22:56 by HUDSON Jones) Chest pain (Acute) Chronic pain (Chronic) CAD (coronary artery disease) (Chronic) Symptomatic anemia (Acute) KEVIN (acute kidney injury) (Acute) Acute confusion (Acute) Epistaxis (Acute) Severe anemia (Acute) Multiple open wounds of right lower leg (Acute) Chronic pain of right lower extremity (Acute) Bilateral carpal tunnel syndrome (Acute) B/L ECTR: 06/24/2024 Ulnar neuropathy of both upper extremities (Acute) Renal lesion (Acute) Phlegm in throat (Acute) Hand numbness (Acute) Lipodermatosclerosis (Acute) Bladder leak (Acute) Weight gain (Acute) Rash (Acute) Change in bowel habits (Acute) 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 Harvey. 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 ALEX (obstructive sleep apnea) (Chronic 03/11/18) not on CPAP due to bedroom size Hyperlipidemia (Acute 01/14/14) History of tobacco use (Acute) Essential hypertension (Acute 08/18/13) Cataracts, both eyes (Acute) 11/11/15 OPTICAL EXPRESSIONS; EARLY CATARACTS B12 deficiency (Acute 04/08/15) Atherosclerosis of [place] coronary artery (Acute) Stent RCA 2006 Hyperlipidemia (Chronic) Hypertension (Chronic) CAD (coronary artery disease) (Chronic) S/P stent 2004 Peripheral vascular disease (Chronic) S/P right SFA antioplasty an sstenting, 2003. Left DVA to [place] popliteal bypass with [place], 2003. Bypass Left Stent Right 2005 left BKA 08/28 Medical History Venous insufficiency of leg Atrial fibrillation Fracture, femur closed, shaft (05/13/22) (L) Carpal tunnel syndrome (05/16/09) Hypertension History of tobacco abuse Quit 2004 Surgical History Status post amputation of lesser toe of right foot History of left hip replacement History of total replacement of left shoulder joint 02/08/23. -hb S/P peripheral artery angioplasty with stent placement Status post below-knee amputation of left lower extremity (2012) History of total right hip replacement (08/03/20) Hx of tubal ligation History of carpal tunnel release Bilaterally Family History Mother , 74 Neoplasm UTERINE Osteoporosis Uterine cancer Lung cancer Father Lung cancer Sister Neoplasm MELANOMA Breast cancer Sister No problems noted. Sister Skin cancer Brother No problems noted. Son Alcohol abuse Depression Maternal Grandfather Stomach cancer Paternal Grandfather No problems noted. Maternal Grandmother No problems noted. Paternal Grandmother No problems noted. Daughter Depression Social History Smoking/Tobacco Use Status: Former Tobacco Use tobacco type: cigarettes Quit Date: 09/16/04 Tobacco: How many years used: 37 Second Hand Exposure: Yes Smoking risk assessment performed?: Yes Alcohol Intake: current Alcohol Intake frequency: a few times a month Alcohol type: beer and hard liquor Drug use: Never Substance use type: does not use Details: Patient drank a alcoholic beverage yesterday (06/23) Caregiver/Support person: No Household members: none Housing: house Do you need help understanding health information?: Rarely current occupation: [employer] Pets and animals: Yes Pets and animals: cat(s) Sexually active: No Do you think of yourself as: straight/heterosexual Current gender identity: female What is your relationship status?: How often do you talk on the phone with friends or family?: three or more times per week How often do you get together with friends or relatives?: decline to answer How often do you attend muslim or evangelical services?: 1-3 times per year Do you belong to any clubs or organized social groups?: no Panel score (0-1 are the most socially isolated patients): 2 What type of physical activity do you participate in: none Carmelina/Baptist: Hindu Special carmelina needs: No Seatbelt use: always Helmet use: Yes Helmet use: always Drive intox 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 four horse hitch driver: No Do you feel safe at home: Yes Do you feel safe in your relationship?: Yes Would you like helpful sources: No Meds Allergies and Home Medications Allergies Allergy/AdvReac Type Severity Reaction Status Date / Time clopidogrel Allergy Skin Rash Verified 09/17/24 16:35 oxybutynin AdvReac Intermediate Reflex Verified 09/17/24 16:35 propoxyphene AdvReac Nausea Verified 09/17/24 16:35 Home Medications ?Medication ?Instructions ?Recorded ?Confirmed ?Type blood-glucose meter (Accu-Chek #1 ea 03/17/20 09/17/24 Rx Guide Glucose Meter) insulin syringe-needle U-100 1 mL #180 12/06/20 09/17/24 Rx 31 gauge x 5/16 (BD Insulin Syringe Ultra-Fine) folic acid 1 mg tablet 1 mg PO DAILY 06/05/22 09/17/24 History blood sugar diagnostic (Accu-Chek #300 strips 11/24/22 09/17/24 Rx Guide test strips) lancets #300 ea 11/24/22 09/17/24 Rx blood-glucose meter,continuous #1 jesus 01/02/23 09/17/24 Rx (Dexcom G7 Harness Placer) blood-glucose sensor (Dexcom G7 #1 ea 01/02/23 09/17/24 Rx Sensor device) magnesium 250 mg tablet 500 mg PO QHS 07/01/23 09/17/24 History carvedilol 12.5 mg tablet 12.5 mg PO BID 12/23/23 09/17/24 History apixaban 5 mg tablet (Eliquis) 5 mg PO BID #60 tabs 01/13/24 09/17/24 Rx atorvastatin 40 mg tablet 40 mg PO DAILY #90 tab-caps 01/13/24 09/17/24 Rx chlorthalidone 50 mg tablet 100 mg (2 x 50 mg) PO DAILY #180 01/13/24 09/17/24 Rx tabs duloxetine 30 mg capsule,delayed 30 mg PO DAILY #90 caps 01/13/24 09/17/24 Rx release duloxetine 60 mg capsule,delayed 60 mg PO DAILY #90 caps 01/13/24 09/17/24 Rx release furosemide 20 mg tablet 20 mg PO DAILY #90 tabs 01/13/24 09/17/24 Rx metformin 500 mg tablet 500 mg PO BID #180 tabs 01/13/24 09/17/24 Rx spironolactone 25 mg tablet 25 mg PO DAILY #90 tabs 01/13/24 09/17/24 Rx (Aldactone) tirzepatide 2.5 mg/0.5 mL 2.5 mg (0.5 mL) subcut QWEEK 4 02/25/24 09/17/24 Rx subcutaneous pen injector weeks #2 mL (Monserrat) potassium chloride 10 mEq 10 meq PO DAILY #90 tabs 03/11/24 09/17/24 Rx tablet,extended release vibegron 75 mg tablet 75 mg PO DAILY #90 tabs 03/11/24 09/17/24 Rx hydroxyurea 500 mg capsule 500 - 1,000 mg (1 - 2 x 500 mg) PO 04/08/24 09/17/24 Rx DAILY #115 caps insulin degludec 200 unit/mL (3 120 unit subcut HS 06/23/24 09/17/24 History mL) subcutaneous pen (Tresiba FlexTouch U-200 insulin) ibuprofen 600 mg tablet 600 mg PO TID PRN pain #90 tabs 06/24/24 09/17/24 Rx fentanyl 12 mcg/hr transdermal 1 patch transdermal Q72H #5 ea 07/22/24 09/17/24 Rx patch aspirin 81 mg tablet,delayed 81 mg PO DAILY 08/06/24 09/17/24 History release (Adult Aspirin Regimen) losartan 100 mg tablet 100 mg PO HS 09/06/24 09/17/24 History ferrous sulfate 325 mg (65 mg 325 mg PO DAILY #30 tabs 09/07/24 09/17/24 Rx iron) tablet ropinirole 8 mg tablet,extended 8 mg PO HS 09/17/24 09/17/24 History release 24 hr Exam Narrative Exam Narrative: Well-appearing older female laying in bed in no acute distress, ANO x 4, heart regular rhythm, lungs clear to auscultation bilaterally, abdomen soft, nontender, nondistended Results Labs 09/18/24 06:00 09/18/24 06:00 Labs: Laboratory Results - last 24 hr 09/17/24 09/17/24 09/17/24 16:50 17:22 18:24 WBC 13.73 H RBC 2.34 L Hgb 6.9 L* Hct 23.5 L MCV 100 H MCH 29.5 MCHC 29.4 L RDW 19.9 H Plt Count 311 MPV 10.1 Immature Gran % 2.6 Neutrophils % 80.6 Lymphocytes % 9.4 Monocytes % 6.3 Eosinophils % 0.5 Basophils % 0.6 Nucleated RBC % 0.2 Absolute Neutrophils 11.07 H Absolute Lymphocytes 1.29 Absolute Monocytes 0.86 H Absolute Eosinophils 0.07 Absolute Basophils 0.08 RBC Morphology See Below Polychromasia Present Hypochromasia 3+ Anisocytosis 2+ D-Dimer 527 H Sodium 144 Potassium 4.8 Chloride 107 Carbon Dioxide 24.7 Anion Gap 12.3 H BUN 39 H Creatinine 1.9 H Est GFR (CKD-EPI 2020) 27.54 Glucose 84 Calcium 8.8 Total Bilirubin 0.33 AST 10 L ALT 16 Alkaline Phosphatase 77 Troponin I 9 10 NT-Pro-B Natriuret Pep 1046 H Total Protein 6.8 Albumin 3.0 L Lipase 81 H ABO/Rh A Positive Antibody Screen NEGATIVE Crossmatch See Detail Last Vital Signs Temp 97.9 F 09/17/24 19:57 Pulse 77 09/17/24 19:57 Resp 15 09/17/24 19:57 BP 157/46 H 09/17/24 19:57 Pulse Ox 98 09/17/24 19:57 PAWSS Have you Been Recently Intoxicated or Drunk Within the Last 30 days?: No Have you Ever Experienced Previous Episodes of Alcohol Withdrawal?: No Have you ever Experienced Withdrawal Seizures?: No Have you ever Experienced Delirium Tremens(DT)s?: No Have you ever undergone Alcohol Rehabilitation Treatment (i.e, inpt ot outpatient treatment programs)?: No Have you ever Experienced Blackouts?: No Have you ever Combined Alcohol with other Downers within the last 90 days?: No Have you ever Combined Alcohol with any other Substance of Abuse during the last 90 days?: No Positive Blood Alcohol level on Presentation? [PCS.BAL]: No Result: 0 Time Spent Time spent with Patient: >75 minutes Time was spent: preparing to see the patient(eg.review tests), obtaining and/or reviewing separately otained hiistory, ordering medications,tests, procedures, referring, communicating with other health reproductive healthcare assistant, indepentently interpreting results, counseling the patient and care coordination
[2024-09-17 21:33] LABS: Troponin I 9 ng/L (<or=51)
--- NOTE | 2024-09-17 21:57 | W.PC.ACHO ---
Registration Status: Primary Language: Preferred Language: ED Information & Data Chief Complaint Chest Pain 09/17/24 18:30 Chief Complaint Chest Pain 09/17/24 16:29 Triage Note patient states that shes 09/17/24 16:29 been having chest pain for a few weeks now, sternal aching pain, does not radiate. worsens with exertion, has had aching when resting. patient has a cardiac stent and heart disease. Medical / Surgical History Venous insufficiency of leg Atrial fibrillation Fracture, femur closed, shaft (05/13/22) Carpal tunnel syndrome (05/16/09) Hypertension History of tobacco abuse (Last Reviewed 09/06/24 @ 13:01 by Roly Flanagan MD) Status post amputation of lesser toe of right foot History of left hip replacement History of total replacement of left shoulder joint S/P peripheral artery angioplasty with stent placement Status post below-knee amputation of left lower extremity (2012) History of total right hip replacement (08/03/20) Hx of tubal ligation History of carpal tunnel release Most Recent Vital Signs Temperature 36.7 C 09/17/24 21:00 Temperature Source Oral 09/17/24 16:29 Pulse 74 09/17/24 21:00 Respiratory Rate 17 09/17/24 21:00 Respiratory Effort Normal 09/17/24 18:52 Respiratory Depth Normal 09/17/24 18:52 Respiratory Pattern Normal 09/17/24 18:52 Blood Pressure 123/60 09/17/24 21:00 Blood Pressure Position Sitting 09/17/24 16:29 Pulse Oximetry 97 09/17/24 21:00 Oxygen Delivery Method Room Air 09/17/24 21:00 Oxygen Flow Rate 0 09/17/24 21:00 Pain Level 5 09/17/24 16:29 Allergies clopidogrel Allergy (Verified 09/17/24 16:35) Skin Rash oxybutynin Adverse Reaction (Intermediate, Verified 09/17/24 16:35) Reflex Esophageal burning, reflux. Symptoms remitted after 4 days d/c. propoxyphene Adverse Reaction (Verified 09/17/24 16:35) Nausea Precautions Isolation Standard precaution 09/17/24 18:30 Diagnostics 09/17/24 09/17/24 09/17/24 Range/Units 21:05 19:39 18:24 WBC Pending (4.4-10.8) 10^3/uL RBC Pending (3.93-5.22) 10^6/uL Hgb Pending (11.2-15.7) g/dL Hct Pending (36.0-46.0) % MCV Pending (80-95) fL MCH Pending (27.0-33.0) pg MCHC Pending (32.0-36.0) % RDW Pending (11.7-14.6) % Plt Count Pending (130-400) 10^3/uL MPV Pending (8.0-11.0) fL Immature Gran % Pending % Neutrophils % Pending % Lymphocytes % Pending % Monocytes % Pending % Eosinophils % Pending % Basophils % Pending % Nucleated RBC % (0.0-0.3) % Absolute Neutrophils Pending (1.2-6.7) 10^3/uL Absolute Lymphocytes Pending (1.2-3.4) 10^3/uL Absolute Monocytes Pending (0.1-0.8) 10^3/uL Absolute Eosinophils Pending (0.0-0.7) 10^3/uL Absolute Basophils Pending (0.0-0.2) 10^3/uL RBC Morphology Polychromasia Hypochromasia Anisocytosis D-Dimer (<500) ng/mlFEU Sodium (136-145) mmol/L Potassium (3.5-5.1) mmol/L Chloride (98-107) mmol/L Carbon Dioxide (21.0-32.0) mmol/L Anion Gap (3-11) mmol/L BUN (7-18) mg/dL Creatinine (0.55-1.02) mg/dL Est GFR (CKD-EPI 2020) (mL/min/1.73m2) Glucose (74-106) mg/dL Calcium (8.5-10.1) mg/dL Total Bilirubin (0.2-1.0) mg/dL AST (15-37) U/L ALT (14-59) U/L Alkaline Phosphatase (46-116) U/L Troponin I 9 10 (<or=51) ng/L NT-Pro-B Natriuret Pep (<300) pg/mL Total Protein (6.4-8.2) g/dL Albumin (3.4-5.0) g/dL Lipase (<78) U/L ABO/Rh Antibody Screen Crossmatch 09/17/24 09/17/24 Range/Units 17:22 16:50 WBC 13.73 H (4.4-10.8) 10^3/uL RBC 2.34 L (3.93-5.22) 10^6/uL Hgb 6.9 L* (11.2-15.7) g/dL Hct 23.5 L (36.0-46.0) % MCV 100 H (80-95) fL MCH 29.5 (27.0-33.0) pg MCHC 29.4 L (32.0-36.0) % RDW 19.9 H (11.7-14.6) % Plt Count 311 (130-400) 10^3/uL MPV 10.1 (8.0-11.0) fL Immature Gran % 2.6 % Neutrophils % 80.6 % Lymphocytes % 9.4 % Monocytes % 6.3 % Eosinophils % 0.5 % Basophils % 0.6 % Nucleated RBC % 0.2 (0.0-0.3) % Absolute Neutrophils 11.07 H (1.2-6.7) 10^3/uL Absolute Lymphocytes 1.29 (1.2-3.4) 10^3/uL Absolute Monocytes 0.86 H (0.1-0.8) 10^3/uL Absolute Eosinophils 0.07 (0.0-0.7) 10^3/uL Absolute Basophils 0.08 (0.0-0.2) 10^3/uL RBC Morphology See Below Polychromasia Present Hypochromasia 3+ Anisocytosis 2+ D-Dimer 527 H (<500) ng/mlFEU Sodium 144 (136-145) mmol/L Potassium 4.8 (3.5-5.1) mmol/L Chloride 107 (98-107) mmol/L Carbon Dioxide 24.7 (21.0-32.0) mmol/L Anion Gap 12.3 H (3-11) mmol/L BUN 39 H (7-18) mg/dL Creatinine 1.9 H (0.55-1.02) mg/dL Est GFR (CKD-EPI 2020) 27.54 (mL/min/1.73m2) Glucose 84 (74-106) mg/dL Calcium 8.8 (8.5-10.1) mg/dL Total Bilirubin 0.33 (0.2-1.0) mg/dL AST 10 L (15-37) U/L ALT 16 (14-59) U/L Alkaline Phosphatase 77 (46-116) U/L Troponin I 9 (<or=51) ng/L NT-Pro-B Natriuret Pep 1046 H (<300) pg/mL Total Protein 6.8 (6.4-8.2) g/dL Albumin 3.0 L (3.4-5.0) g/dL Lipase 81 H (<78) U/L ABO/Rh A Positive Antibody Screen NEGATIVE Crossmatch See Detail Intake and Output - 24 Hour Total 09/17/24 16:22 thru 09/17/24 21:00 Intake Total 300 Balance 300 Weight 108.862 kg Intake: Blood Product 300 Rbc Leuko Reduced Unit 300 [id number] Falls Risk Assessment History of Falls No History 09/17/24 18:52 Fall Total Score 0 09/17/24 18:52 Level of Risk Standard/Low Risk 09/17/24 18:52 Problems (Last Reviewed 09/06/24 @ 13:01 by Roly Flanagan MD) Chronic pain (Chronic) CAD (coronary artery disease) (Chronic) Symptomatic anemia (Acute) Epistaxis (Acute) Type 2 diabetes mellitus with circulatory disorder, with long-term current use of insulin (Acute) RLS (restless legs syndrome) (Chronic) Hyperlipidemia (Acute 01/14/14) Essential hypertension (Acute 08/18/13) Notes 09/17/24 18:57 Nursing Notes by Analilia Michelle Nursing Note: hand off given to maintenance technician 2nd shift RINKU, RN Initialized on 09/17/24 18:57 - END OF NOTE v v v v v v v v v Sending and/or Receiving Nurses: Please use comment section below to note any information pertinent to the patient hand-off not included above. Information / Comments: 73 yo female drove herself in from home chief c/o chest pain and STOLL has Left BKA just before cassia found to be anemic, was anemic again tonight (6.7) got 1 unit of blood, done at 2100, rpt CBC for 2300 [facility] cardiac has been consulted trops -, ekg - thinking angina, ischemic has some nose bleeding, will consult ENT, possible cauterization R nare is on eliquis 20g LAC, flushes well VSS bp 123/45 hr 79 rr 18-20 even non labored O2Sat 95-98% t 36.6 has been fed, has had water no skin issues noted independent @ home, has not been OOB Report received from: ZHENG Escudero @ [id number]
--- NOTE | 2024-09-17 22:33 | ED.GENADUL_ITS ---
Discharge Plan Disposition Patient Disposition: Admit to [facility] Condition: Serious Discharge Details Clinical Impression: Symptomatic anemia, Epistaxis, Chest pain Admit Date/Time: 09/17/24 20:17 Admit Provider: Mahin Espinal Attending Provider: Mahin Espinal Primary Care Provider: Gui Graham ED Provider: Marifer Ta General Date/Time Provider Initiated Documentation: 09/17/24 16:53 . HPI Narrative: This very chronically ill 73-year-old female presents with past medical history of coronary artery disease with stent in 2013, symptomatic anemia, KEVIN, epistaxis, type 2 diabetes, atrial fibrillation history, chronic anticoagulation dependent, hypertension, hyperlipidemia presents with report of intermittent chest pain and worsening shortness of breath. States it has dramatically worsened this week which is why she presents. States she had a recent admission to the hospital for weakness and was told that she was anemic and required transfusion. They attributed this to her recurrent epistaxis episodes. She has never had follow-up with ENT or vision. She has had 3 episodes of epistaxis since leaving our facility. She states is predominantly the right nare. She s tates that her symptoms today are similar to when she had a stent in 2013 which is why she was concerns. She denies any calf pain or swelling. She denies tobacco use, she denies any illicit drug use. She describes the pain as pressure she has not had any pain or pressure for the past hour per patient. She denies any calf pain or swelling. Related Data Home Medications ?Medication ?Instructions ?Recorded ?Confirmed blood-glucose meter (Accu-Chek #1 ea 03/17/20 09/17/24 Guide Glucose Meter) insulin syringe-needle U-100 1 mL #180 ea 12/06/20 09/17/24 31 gauge x 5/16 (BD Insulin Syringe Ultra-Fine) folic acid 1 mg tablet 1 mg PO DAILY 06/05/22 09/17/24 blood sugar diagnostic (Accu-Chek #300 strips 11/24/22 09/17/24 Guide test strips) lancets #300 ea 11/24/22 09/17/24 blood-glucose meter,continuous #1 ea 01/02/23 09/17/24 (Dexcom G7 Windows Vmware Engineer) blood-glucose sensor (Dexcom G7 #1 ea 04/19/23 01/02/25 Sensor device) magnesium 250 mg tablet 500 mg PO QHS 07/01/23 09/17/24 carvedilol 12.5 mg tablet 12.5 mg PO BID 12/23/23 09/17/24 apixaban 5 mg tablet (Eliquis) 5 mg PO BID #60 tabs 01/13/24 09/17/24 atorvastatin 40 mg tablet 40 mg PO DAILY #90 tab-caps 01/13/24 09/17/24 chlorthalidone 50 mg tablet 100 mg (2 x 50 mg) PO DAILY #180 01/13/24 09/17/24 tabs duloxetine 30 mg capsule,delayed 30 mg PO DAILY #90 caps 01/13/24 09/17/24 release duloxetine 60 mg capsule,delayed 60 mg PO DAILY #90 caps 01/13/24 09/17/24 release furosemide 20 mg tablet 20 mg PO DAILY #90 tabs 01/13/24 09/17/24 metformin 500 mg tablet 500 mg PO BID #180 tabs 01/13/24 09/17/24 spironolactone 25 mg tablet 25 mg PO DAILY #90 tabs 01/13/24 09/17/24 (Aldactone) tirzepatide 2.5 mg/0.5 mL 2.5 mg (0.5 mL) subcut QWEEK 4 02/25/24 09/17/24 subcutaneous pen injector weeks #2 mL (Monserrat) potassium chloride 10 mEq 10 meq PO DAILY #90 tabs 03/11/24 09/17/24 tablet,extended release vibegron 75 mg tablet 75 mg PO DAILY #90 tabs 03/11/24 09/17/24 hydroxyurea 500 mg capsule 500 - 1,000 mg (1 - 2 x 500 mg) PO 04/08/24 09/17/24 DAILY #115 caps insulin degludec 200 unit/mL (3 120 unit subcut HS 06/23/24 09/17/24 mL) subcutaneous pen (Tresiba FlexTouch U-200 insulin) ibuprofen 600 mg tablet 600 mg PO TID PRN pain #90 tabs 06/24/24 09/17/24 fentanyl 12 mcg/hr transdermal 1 patch transdermal Q72H #5 ea 07/22/24 09/17/24 patch aspirin 81 mg tablet,delayed 81 mg PO DAILY 08/06/24 09/17/24 release (Adult Aspirin Regimen) losartan 100 mg tablet 100 mg PO HS 09/06/24 09/17/24 ferrous sulfate 325 mg (65 mg 325 mg PO DAILY #30 tabs 09/07/24 09/17/24 iron) tablet ropinirole 8 mg tablet,extended 8 mg PO HS 09/17/24 09/17/24 release 24 hr Previous Rx's ?Medication ?Instructions ?Recorded blood-glucose meter (Accu-Chek #1 ea 03/17/20 Guide Glucose Meter) insulin syringe-needle U-100 1 mL #180 ea 12/06/20 31 gauge x 5/16 (BD Insulin Syringe Ultra-Fine) blood sugar diagnostic (Accu-Chek #300 strips 11/24/22 Guide test strips) lancets #300 ea 11/24/22 blood-glucose meter,continuous #1 ea 01/02/23 (Dexcom G7 Windows Vmware Engineer) blood-glucose sensor (Dexcom G7 #1 ea 01/02/23 Sensor device) apixaban 5 mg tablet (Eliquis) 5 mg PO BID #60 tabs 01/13/24 atorvastatin 40 mg tablet 40 mg PO DAILY #90 tab-caps 01/13/24 chlorthalidone 50 mg tablet 100 mg (2 x 50 mg) PO DAILY #180 01/13/24 tabs duloxetine 30 mg capsule,delayed 30 mg PO DAILY #90 caps 01/13/24 release duloxetine 60 mg capsule,delayed 60 mg PO DAILY #90 caps 01/13/24 release furosemide 20 mg tablet 20 mg PO DAILY #90 tabs 01/13/24 metformin 500 mg tablet 500 mg PO BID #180 tabs 01/13/24 spironolactone 25 mg tablet 25 mg PO DAILY #90 tabs 01/13/24 (Aldactone) tirzepatide 2.5 mg/0.5 mL 2.5 mg (0.5 mL) subcut QWEEK 4 02/25/24 subcutaneous pen injector weeks #2 mL (Mounjaro) potassium chloride 10 mEq 10 meq PO DAILY #90 tabs 03/11/24 tablet,extended release vibegron 75 mg tablet 75 mg PO DAILY #90 tabs 03/11/24 hydroxyurea 500 mg capsule 500 - 1,000 mg (1 - 2 x 500 mg) PO 04/08/24 DAILY #115 caps ibuprofen 600 mg tablet 600 mg PO TID PRN pain #90 tabs 06/24/24 fentanyl 12 mcg/hr transdermal 1 patch transdermal Q72H #5 ea 07/22/24 patch ferrous sulfate 325 mg (65 mg 325 mg PO DAILY #30 tabs 09/07/24 iron) tablet Allergies Allergy/AdvReac Type Severity Reaction Status Date / Time clopidogrel Allergy Skin Rash Verified 09/17/24 16:35 oxybutynin AdvReac Intermediate Reflex Verified 09/17/24 16:35 propoxyphene AdvReac Nausea Verified 09/17/24 16:35 General Stated Complaint: Chest Pain KIMI: 3 Exam Narrative Exam Narrative: This 73-year-old female presents pale but in no acute distress without any current chest pain, pupils equal round reactive to light and accommodation, no reproducible chest pain, cardiac rate rhythm regular, no abdominal tenderness, nares on the right, and turbinate there are 2 areas that look like coagulated areas without active bleeding, oropharynx patent, no blood noted, uvula midline, alert and oriented x 4, no peripheral edema, guaiac negative with out any visible blood in stool Course Vital Signs Vital signs: Vital Signs Temperature 36.2 C L 09/17/24 16:29 Pulse 88 09/17/24 16:29 Respiratory Rate 16 09/17/24 16:29 Blood Pressure 130/54 L 09/17/24 16:29 Pulse Oximetry 95 09/17/24 16:29 Temperature 36.4 C L 09/17/24 22:00 Temperature Source Oral 09/17/24 16:29 Pulse 76 09/17/24 22:00 Pulse 75 09/17/24 21:40 Respiratory Rate 18 09/17/24 22:00 Respiratory Effort Normal 09/17/24 18:52 Respiratory Depth Normal 09/17/24 18:52 Respiratory Pattern Normal 09/17/24 18:52 Blood Pressure 128/91 H 09/17/24 22:00 Blood Pressure Mean 61 09/17/24 21:31 Blood Pressure Position Sitting 09/17/24 16:29 Pulse Oximetry 97 09/17/24 22:00 Oxygen Delivery Method Room Air 09/17/24 22:00 Oxygen Flow Rate 0 09/17/24 22:00 Pain Level 10 09/17/24 22:00 Comment RLE 06/25 pain, wound care today and saturday wound care at [facility] map 99 09/17/24 22:00 Lab/Test Results Lab/Test Results: Laboratory Tests Range/Units 09/17/24 09/17/24 09/17/24 16:50 17:22 18:24 WBC (4.4-10.8) 10^3/uL 13.73 H RBC (3.93-5.22) 10^6/uL 2.34 L Hgb (11.2-15.7) g/dL 6.9 L* Hct (36.0-46.0) % 23.5 L MCV (80-95) fL 100 H MCH (27.0-33.0) pg 29.5 MCHC (32.0-36.0) % 29.4 L RDW (11.7-14.6) % 19.9 H Plt Count (130-400) 10^3/uL 311 MPV (8.0-11.0) fL 10.1 Immature Gran % % 2.6 Neutrophils % % 80.6 Lymphocytes % % 9.4 Monocytes % % 6.3 Eosinophils % % 0.5 Basophils % % 0.6 Nucleated RBC % (0.0-0.3) % 0.2 Absolute Neutrophils (1.2-6.7) 10^3/uL 11.07 H Absolute Lymphocytes (1.2-3.4) 10^3/uL 1.29 Absolute Monocytes (0.1-0.8) 10^3/uL 0.86 H Absolute Eosinophils (0.0-0.7) 10^3/uL 0.07 Absolute Basophils (0.0-0.2) 10^3/uL 0.08 RBC Morphology See Below Polychromasia Present Hypochromasia 3+ Anisocytosis 2+ D-Dimer (<500) ng/mlFEU 527 H Sodium (136-145) mmol/L 144 Potassium (3.5-5.1) mmol/L 4.8 Chloride (98-107) mmol/L 107 Carbon Dioxide (21.0-32.0) mmol/L 24.7 Anion Gap (3-11) mmol/L 12.3 H BUN (7-18) mg/dL 39 H Creatinine (0.55-1.02) mg/dL 1.9 H Est GFR (CKD-EPI 2020) (mL/min/1.73m2) 27.54 Glucose (74-106) mg/dL 84 Calcium (8.5-10.1) mg/dL 8.8 Total Bilirubin (0.2-1.0) mg/dL 0.33 AST (15-37) U/L 10 L ALT (14-59) U/L 16 Alkaline Phosphatase (46-116) U/L 77 Troponin I (<or=51) ng/L 9 10 NT-Pro-B Natriuret Pep (<300) pg/mL 1046 H Total Protein (6.4-8.2) g/dL 6.8 Albumin (3.4-5.0) g/dL 3.0 L Lipase (<78) U/L 81 H ABO/Rh A Positive Antibody Screen NEGATIVE Crossmatch See Detail Medical Decision Making 73-year-old female presents with report of chest pain intermittently for the past several days. Was recently discharged from this facility with anemia secondary to likely epistaxis which she has extensively without any follow-up. She was discharged with a hemoglobin of 8.53 days ago and she is down to 6.9 today. I did order transfusion of 1 unit initially. Her EKG is nonischemic and she has 2 negative troponins I did speak with cardiology, Dr. Morteza Polanco do not recommend a cath at this time rather supplementation of her hemoglobin and hematocrit and echocardiogram tomorrow. BNP was mildly elevated and 1000, no prior to compare, 2 negative troponins at 9 and 10. Hemoglobin of 6.9. Mild leukocytosis at 13,000. Case is discussed with Dr. Espinal who will admit patient to his service for likely ENT consultation, transfusion, continue cardiac morning. Patient remains hemodynamically stable, diastolic improved after transfusion. Anticoagulation held Quality:[facility] Health Related Social Needs: No Data to Display [facility] All Active Problems (Updated 09/17/24 @ 22:56 by HUDSON Jones) Chest pain (Acute) Chronic pain (Chronic) CAD (coronary artery disease) (Chronic) Symptomatic anemia (Acute) KEVIN (acute kidney injury) (Acute) Acute confusion (Acute) Epistaxis (Acute) Severe anemia (Acute) Multiple open wounds of right lower leg (Acute) Chronic pain of right lower extremity (Acute) Bilateral carpal tunnel syndrome (Acute) B/L ECTR: 06/24/2024 Ulnar neuropathy of both upper extremities (Acute) Renal lesion (Acute) Phlegm in throat (Acute) Hand numbness (Acute) Lipodermatosclerosis (Acute) Bladder leak (Acute) Weight gain (Acute) Rash (Acute) Change in bowel habits (Acute) 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 hematology with Hydrea Type 2 diabetes mellitus with circulatory disorder, with long-term current use of insulin (Acute) Rotator cuff tear arthropathy of right shoulder (Acute) DEPO MEDROL 11/09/22 Rotator cuff tear arthropathy of left shoulder (Acute) Fatigue (Acute) Osteoarthritis of right knee (Acute) Steroid Injection: 12/23/2023 Most recent Synvisc injections: 06/24/2023; 04/10/2022; 09/26/2021 She has been provided with Synvisc injections for many years with Dr. Harvey. 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 ALEX (obstructive sleep apnea) (Chronic 03/11/18) not on CPAP due to bedroom size Hyperlipidemia (Acute 01/14/14) History of tobacco use (Acute) Essential hypertension (Acute 08/18/13) Cataracts, both eyes (Acute) 11/11/15 OPTICAL EXPRESSIONS; EARLY CATARACTS B12 deficiency (Acute 04/08/15) Atherosclerosis of [place] coronary artery (Acute) Stent RCA 2006 Hyperlipidemia (Chronic) Hypertension (Chronic) CAD (coronary artery disease) (Chronic) S/P stent 2004 Peripheral vascular disease (Chronic) S/P right SFA antioplasty an sstenting, 2003. Left DVA to [place] popliteal bypass with [place]-Ruben, 2003. Bypass Left Stent Right 2005 left BKA 08/28 Medical History Venous insufficiency of leg Atrial fibrillation Fracture, femur closed, shaft (05/13/22) (L) Carpal tunnel syndrome (05/16/09) Hypertension History of tobacco abuse Quit 2004 Surgical History Status post amputation of lesser toe of right foot History of left hip replacement History of total replacement of left shoulder joint 02/08/23. -hb S/P peripheral artery angioplasty with stent placement Status post below-knee amputation of left lower extremity (2012) History of total right hip replacement (08/03/20) Hx of tubal ligation History of carpal tunnel release Bilaterally Family History Mother , 74 Neoplasm UTERINE Osteoporosis Uterine cancer Lung cancer Father Lung cancer Sister Neoplasm MELANOMA Breast cancer Sister No problems noted. Sister Skin cancer Brother No problems noted. Son Alcohol abuse Depression Maternal Grandfather Stomach cancer Paternal Grandfather No problems noted. Maternal Grandmother No problems noted. Paternal Grandmother No problems noted. Daughter Depression Social History Smoking/Tobacco Use Status: Former Tobacco Use tobacco type: cigarettes Quit Date: 09/16/04 Tobacco: How many years used: 37 Second Hand Exposure: Yes Smoking risk assessment performed?: Yes Alcohol Intake: current Alcohol Intake frequency: a few times a month Alcohol type: beer and hard liquor Drug use: Never Substance use type: does not use Details: Patient drank a alcoholic beverage yesterday (06/23) Caregiver/Support person: No Household members: none Housing: house Do you need help understanding health information?: Rarely current occupation: [facility] Pets and animals: Yes Pets and animals: cat(s) Sexually active: No Do you think of yourself as: straight/heterosexual Current gender identity: female What is your relationship status?: How often do you talk on the phone with friends or family?: three or more times per week How often do you get together with friends or relatives?: decline to answer How often do you attend sikh or methodist services?: 1-3 times per year Do you belong to any clubs or organized social groups?: no Panel score (0-1 are the most socially isolated patients): 2 What type of physical activity do you participate in: none Carmelina/Jehovah'S Witness: L[employer] Special carmelina needs: No Seatbelt use: always Helmet use: Yes Helmet use: always Drive intox 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 tow driver: No Do you feel safe at home: Yes Do you feel safe in your relationship?: Yes Would you like helpful sources: No PAWSS Have you Been Recently Intoxicated or Drunk Within the Last 30 days?: No Have you Ever Experienced Previous Episodes of Alcohol Withdrawal?: No Have you ever Experienced Withdrawal Seizures?: No Have you ever Experienced Delirium Tremens(DT)s?: No Have you ever undergone Alcohol Rehabilitation Treatment (i.e, inpt ot outpatient treatment programs)?: No Have you ever Experienced Blackouts?: No Have you ever Combined Alcohol with other Downers within the last 90 days?: No Have you ever Combined Alcohol with any other Substance of Abuse during the last 90 days?: No Positive Blood Alcohol level on Presentation? [PCS.BAL]: No Evidence of Increased Autonomic Activity (i.e. HR>120, tremor, sweating, agitation, nausea)?: No Result: 0
[2024-09-17 23:08] LABS: Abs Immature Grans 0.22 10^3/uL (0.0-0.06); Absolute Lymphocyte Count 1.35 10^3/uL (1.2-3.4); Absolute Monocyte Count 0.76 10^3/uL (0.1-0.8); Basophils % 0.6 %; Eosinophils % 0.8 %; HCT 24.9 % (36.0-46.0); HGB 7.4 g/dL (11.2-15.7); Immature Grans % 1.8 %; Lymphocytes % 10.9 %; MCH 29.1 pg (27.0-33.0); MCHC 29.7 % (32.0-36.0); MCV 98 fL (80-95); MPV 10.2 fL (8.0-11.0); Monocytes % 6.1 %; Neutrophils % 79.8 %; Nucleated RBC 0.2 % (0.0-0.3); Platelet Count 288 10^3/uL (130-400); RBC 2.54 10^6/uL (3.93-5.22); RDW 19.8 % (11.7-14.6); WBC 12.41 10^3/uL (4.4-10.8)
[2024-09-17 23:10] LABS: Absolute Basophil Count 0.07 10^3/uL (0.0-0.2)
[2024-09-17] MEDS: Magnesium Oxide 400 MG TAB PO (23:50)
[2024-09-17] MEDS: Losartan 50 MG TAB 100 MG PO (23:50)
[2024-09-17] MEDS: Atorvastatin 40 MG TAB PO (23:50)
[2024-09-18] VITALS (13 sets, daily range): BP systolic 124–157; BP diastolic 39–54; PULSE 65–73; RESP 14–18; TEMP 36–36.6; O2SAT 92–97
[2024-09-18] MEDS: rOPINIRole 0.5 MG TAB 4 MG PO (00:36)
[2024-09-18 06:14] LABS: HCT 23.6 % (36.0-46.0); MCH 29.2 pg (27.0-33.0); MCHC 29.7 % (32.0-36.0); MCV 98 fL (80-95); MPV 10.4 fL (8.0-11.0); Platelet Count 267 10^3/uL (130-400); RDW 19.9 % (11.7-14.6); RDW-SD 69.2 fL; WBC 11.89 10^3/uL (4.4-10.8)
[2024-09-18 06:22] LABS: Anion Gap 8.7 mmol/L (3-11); BUN 42 mg/dL (7-18); CO2 25.3 mmol/L (21.0-32.0); CREATININE 1.6 mg/dL (0.55-1.02); Calcium 8.5 mg/dL (8.5-10.1); Chloride 108 mmol/L (98-107); Estimated GFR 33.84 (mL/min/1.73m2); Glucose 130 mg/dL (74-106); Magnesium 1.9 mg/dL (1.8-2.4); Potassium 4.4 mmol/L (3.5-5.1); Sodium 142 mmol/L (136-145)
[2024-09-18] MEDS: DULoxetine 30 MG CAP 90 MG PO (08:19)
[2024-09-18] MEDS: Chlorthalidone 25 MG TAB 100 MG PO (08:19)
[2024-09-18] MEDS: metFORMIN 500 MG TAB PO (08:20)
[2024-09-18] MEDS: Spironolactone 25 MG TAB PO (08:20)
[2024-09-18] MEDS: fentaNYL 12 MCG PATCH TD (08:20)
[2024-09-18] MEDS: Ferrous Sulfate 325 MG TAB PO (08:20)
[2024-09-18] MEDS: Furosemide 20 MG TAB PO (08:20)
[2024-09-18] MEDS: Carvedilol 12.5 MG TAB PO ×2 (08:20→17:23)
[2024-09-18] MEDS: Folic Acid 1 MG TAB PO (08:20)
[2024-09-18] MEDS: Potassium Chloride 10 MEQ TABCR PO (08:24)
[2024-09-18] MEDS: Normal Saline Flush 10 ML SYR IVP ×2 (08:24→20:43)
[2024-09-18] MEDS: Hydroxyurea 500 MG CAP PO (08:30)
--- NOTE | 2024-09-18 08:30 | DI.US_ITS ---
APPROVED REPORT EXAM: Comprehensive 2D, Doppler, and color-flow Echocardiogram Patient Location: In-Patient Room/Bed: [address] [place]: Natalie Levi RDCS (AE) Indications: Symptomatic anemia, Chest pain, CAD Other Information Study Quality: Adequate. Technically limited study due to exam done bedside. Conclusion Mild concentric left ventricular hypertrophy. Ejection fraction is 60%. Wall motion is normal Normal right ventricular size and function Both atria are normal in size Aortic valve is sclerotic and trileaflet without stenosis or regurgitation Mild mitral annular calcification. Mild mitral regurgitation Estimated right ventricular systolic pressure is 41 mmHg Wall motion Left Ventricle The left ventricle is normal size. The left ventricular systolic function is normal. The left ventric ular ejection fraction is within the normal range. Mild concentric left ventricular hypertrophy. Ther e is normal LV segmental wall motion. There is no ventricular septal defect visualized. LVEF is 60%. Right Ventricle The right ventricle is normal size. The right ventricular systolic function is normal. Atria The left atrium size is normal. The right atrium size is normal. The interatrial septum is intact wit h no evidence for an atrial septal defect. Aortic Valve The Aortic valve is sclerotic. Aortic valve is trileaflet. There is no aortic valvular stenosis. No aortic regurgitation is present. Mitral Valve Mild mitral annular calcification. No evidence of mitral valve stenosis. Mild mitral regurgitation. Tricuspid Valve The tricuspid valve is normal in structure. There is no tricuspid valve stenosis. Trace tricuspid reg urgitation. The RVSP is 41.3_ mmHg. Pulmonic Valve The pulmonary valve is normal in structure. There is no pulmonic valvular stenosis. Trace pulmonic re gurgitation. Great Vessels The aortic root is normal in size. The ascending aorta is normal in size. Aortic arch is not well vis ualized. IVC is normal in size and collapses >50% with inspiration. Pericardium There is no pericardial effusion. 2D Dimensions IVSD d PLAX 1.20 cm F: 0.6-1.0 Ao Root d 2.92 cm F: 2.7 - 3.3 LVPW d PLAX 1.24 cm F: 0.6 - 1.0 Ao Asc Diam d 3.01 cm F: 2.3 - 3.1 LVID d PLAX 4.76 cm F: 3.8 - 5.2 LVDs 3.30 cm F: 2.2 - 3.5 LV EF Teichholz 58.1 % FS 30.67 % LV EDV (Teich) 105.7 mL LV ESV (Teich) 44.2 mL M-Mode TAPSE 3.78 cm (M/F) >1.7 Auto EF LV EDV A4C 120.9 mL LV EDV A2C 109.4 mL LV EDV BP 116.6 mL LV ESV A4C 52.6 mL LV ESV A2C 44.8 mL LV ESV BP 48.4 mL LVEF(%) A4C 56.5 % LVEF(%) A2C 59.0 % LVEF(%) BP 58.5 % LV SV A4C 68.3 ml LV SV A2C 64.5 ml LV SV BP 68.2 ml LV CO A4C 5.0 L/min LV CO A2C 4.5 L/min LV CO BP 4.8 L/min HR A4C 73.32 BPM HR A2C 69.63 BPM LV EDV Index (BP) LA Volume LA Length A4C 6.4 cm LA Length A2C 5.6 cm LA Area A4C s 27.42 cm2 LA Area A2C s 19.96 cm2 LA Vol A4C A-L 99.53 mL LA Vol A2C A-L 60.79 mL LA Vol Biplane A-L 83.5 mL LA Vol/BSA A4C A-L LA Vol/BSA A2C A-L LA Vol/BSA BP A-L 37.3 mL/m2 LA Vol A4C MOD 89.3 mL LA Vol A2C MOD 54.6 mL LA Vol BP MOD 74.1 mL RA Volume RA Area A4C 14.2 cm2 RA ESV A4C (A-L) 36.5mL RA Vol/BSA A4C A-L RA Length A4C 4.7 cm RA ESV A4C (MOD) 33.9mL LV Diastology MV E' medial 0.103 (>0.07 m/s) MV E Vmax 1.05 (0.4-1.3 m/s) MV E/E' MED 10.19 (<14) MV A Vmax 1.15 (0.4-1.3 m/s) MV E' lateral 0.117 (>0.1 m/s) E/A Ratio 0.9 MV E/E' LAT 9.02 (<14) MV E' Average 0.110 m/s MV E/E'(average) 9.57 Aortic Valve AoV Vmax 1.68 m/s LVOT Vmax 1.31 m/s AoV Peak Grad 11.3 mmHg LVOT Peak Grad 6.9 mmHg AoV Area (Vmax) 2.19 cm2 LVOT VTI 0.342 m AoV VTI 0.347 m LVOT Mean Grad 4.9 mmHg AoV Mean Liu. 1.07 m/s LVOT SV 96.25 mL AoV Mean Grad 5.3 mmHg LVOT Diam s 1.85 cm AoV Area (VTI) 2.78 cm2 AV Regurg Peak Gr. 11.33 mmHg Velocity Ratio 0.78 Mitral Valve MV DT 223 (160-240 msec) MV Vmax TIPS 1.13 m/s MV Mean Grad 2.1 (<2mmHg) MV VTI 0.358 m Pulmonary Valve PV Vmax 1.50 (0.5-1.5 m/s) RVOT Vmax 1.10 m/s PV Peak Grad 9.1 mmHg RVOT Peak Gr. 4.8 mmHg PV Mean Liu 1.15 m/s RVOT VTI 0.299 m PV Mean Grad 5.8 mmHg RVOT Mean Gr. 3.2 mmHg Tricuspid Valve RA Pressure 3.00 mmHg TR Vmax 3.09 m/s TV S' 0.19 m/s TR Peak Grad 38.2 mmHg RVSP (TR) 41.3 mmHg
--- NOTE | 2024-09-18 09:05 | RESPIRATORY ---
Spoke with patient about ALEX diagnosis and patient advised she has a CPAP machine at home through [facility] but she hasn't used it in over 6 months.
--- NOTE | 2024-09-18 09:53 | PDOC.CMIN ---
Date of service: 09/18/24 Time of Service: 09:53 Care Management Initial Assmt Initial Assessment Reason for Hospitalization: symptomatic anemia, presented with chest pain and Hgb 6.9 Functional Status/Living Situation Patient Presentation: Emilia presented to the ER yesterday with c/o chest pain that felt similar to what she felt when she had an MN in 2012. She was found to have a Hgb of 6.9, when it was just 8.5 on 09/07/24 when she was discharged home after a similar event, and receiving PRBC. She has a history of quite extensive nose bleeds, but it is not yet known what is the cause of this anemia. Emilia has an extensive medical history, and wants this figured out before a planned cruise in the spring, which is planned to celebrate her great-granddaughter's graduation. Emilia was very personable and agreeable to speaking with CM. She was sitting up on the edge of the bed when CM met with her. 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 She has been dealing with this well. She recently had her 4th toe on the right foot amputated, and has chronic wounds to her right leg. She finds that her balance is off a bit with the toe gone, and she is using her cane more regularly. Emilia receives wound care from HC RN. Emilia will need ENT referral. She would like to see HUDSON Gonzalez [facility] [place] [place] [phone]. They have been recommended highly to her. Town of Residence: [place] Resides with: Child (son, Ki and great granddaughter, Rachel) Natural Supports: Ki and Rachel Employment Status: Retired Instrumental Activities of Daily Living (ADLs): Independent Medications Medication Management: No Issues/Barriers identified Physical Functioning/Mobility Assistive Device: prosthetic leg. Emilia uses a cane and sometimes a walker Advance Directives Advance Directives: Do you have an Advance Directive: Y 01/15/14 13:08 AD On File at [facility]: Y 11/14/12 10:42 Date Asked 09/06/24 09/06/24 15:02 AD Date Reviewed 06/24/24 06/17/24 07:49 COLST On File at [facility] COLST Date Scanned Code Status Resuscitation Status Full Code Insurance Coverage/Financial Issues Insurance: Medicare and BC/BS [place] Care Team Visit Care Team Role Provider Type Gui Graham MD Primary Care Provider [facility] STAFF PHYSICIAN HUDSON Jones Emergency Provider [employer] Mahin Espinal MD Admit Provider [facility] STAFF PHYSICIAN Attending Provider Other: Emilia has an extensive team of specialists including dermatology, vascular, nephrology, gynecology and gyno oncology. Discharge Potential Discharge Needs: PCP F/U Appt Anticipated Barriers to Discharge: None Identified Patient/Family Education Needs: Review discharge instructions, discuss Ask Me Three Transportation: Private vehicle Plan: Anticipate that Emilia will be discharged home with resumption of HH services PT and RN. She will f/u with her community providers and continue per her plan of care. She will transport home with her son. CM will continue to follow. Social Determinants of Health Screening Will the Patient Participate in the Screening?: Declined to provide PFSH All Active Problems (Updated 09/17/24 @ 22:56 by HUDSON Jones) Chest pain (Acute) Chronic pain (Chronic) CAD (coronary artery disease) (Chronic) Symptomatic anemia (Acute) KEVIN (acute kidney injury) (Acute) Acute confusion (Acute) Epistaxis (Acute) Severe anemia (Acute) Multiple open wounds of right lower leg (Acute) Chronic pain of right lower extremity (Acute) Bilateral carpal tunnel syndrome (Acute) B/L ECTR: 06/24/2024 Ulnar neuropathy of both upper extremities (Acute) Renal lesion (Acute) Phlegm in throat (Acute) Hand numbness (Acute) Lipodermatosclerosis (Acute) Bladder leak (Acute) Weight gain (Acute) Rash (Acute) Change in bowel habits (Acute) 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 Harvey. 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 ALEX (obstructive sleep apnea) (Chronic 03/11/18) not on CPAP due to bedroom size Hyperlipidemia (Acute 01/14/14) History of tobacco use (Acute) Essential hypertension (Acute 08/18/13) Cataracts, both eyes (Acute) 11/11/15 OPTICAL EXPRESSIONS; EARLY CATARACTS B12 deficiency (Acute 04/08/15) Atherosclerosis of [place] coronary artery (Acute) Stent RCA 2006 Hyperlipidemia (Chronic) Hypertension (Chronic) CAD (coronary artery disease) (Chronic) S/P stent 2004 Peripheral vascular disease (Chronic) S/P right SFA antioplasty an sstenting, 2003. Left DVA to [place] popliteal bypass with [place], 2003. Bypass Left Stent Right 2006 left BKA 08/28 Medical History Venous insufficiency of leg Atrial fibrillation Fracture, femur closed, shaft (05/13/22) (L) Carpal tunnel syndrome (05/16/09) Hypertension History of tobacco abuse Quit 2004 Surgical History Status post amputation of lesser toe of right foot History of left hip replacement History of total replacement of left shoulder joint 02/08/23. -hb S/P peripheral artery angioplasty with stent placement Status post below-knee amputation of left lower extremity (2012) History of total right hip replacement (08/03/20) Hx of tubal ligation History of carpal tunnel release Bilaterally Family History Mother , 74 Neoplasm UTERINE Osteoporosis Uterine cancer Lung cancer Father Lung cancer Sister Neoplasm MELANOMA Breast cancer Sister No problems noted. Sister Skin cancer Brother No problems noted. Son Alcohol abuse Depression Maternal Grandfather Stomach cancer Paternal Grandfather No problems noted. Maternal Grandmother No problems noted. Paternal Grandmother No problems noted. Daughter Depression Social History Smoking/Tobacco Use Status: Former Tobacco Use tobacco type: cigarettes Quit Date: 09/16/04 Tobacco: How many years used: 37 Second Hand Exposure: Yes Smoking risk assessment performed?: Yes Alcohol Intake: current Alcohol Intake frequency: a few times a month Alcohol type: beer and hard liquor Drug use: Never Substance use type: does not use Details: Patient drank a alcoholic beverage yesterday (06/23) Caregiver/Support person: No Household members: none Housing: house Do you need help understanding health information?: Rarely current occupation: [employer] Pets and animals: Yes Pets and animals: cat(s) Sexually active: No Do you think of yourself as: straight/heterosexual Current gender identity: female What is your relationship status?: How often do you talk on the phone with friends or family?: three or more times per week How often do you get together with friends or relatives?: decline to answer How often do you attend yarsanism or restoration services?: 1-3 times per year Do you belong to any clubs or organized social groups?: no Panel score (0-1 are the most socially isolated patients): 2 What type of physical activity do you participate in: none Carmelina/Jainism: Yazidism Special carmelina needs: No Seatbelt use: always Helmet use: Yes Helmet use: always Drive intox 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 delivery driver/customer service: No Do you feel safe at home: Yes Do you feel safe in your relationship?: Yes Would you like helpful sources: No Readmission Within the Past 30 Days Yes or No: Yes Date of First Admission Date of 1st Admission: 09/06/24 Date of this Admission Date of Admission: 09/17/24 This admission was: Through ED (c/o CP that was similar to when she had an MN. HGB = 6.9) Office Visit Since 1st Admission Have you seen your PCP in the office since discharge?: No Describe barriers for scheduling or getting an appointment: stated that she has an appointment sometime in September Speicalist Appointments Have you seen any other specialist since your 1st Admission?: No I. Interview patient and/or Family Difficulty reaching your doctor or getting an office appt?: No Have you had trouble purchasing/ or taking medication?: No Have you had trouble with getting meals at home?: No Did you feel ready for discharge when you left the last time: Yes Were services received that you thought were set up on disch: Yes What services were received?: HH RN for wound care. Did you call your physician beore you came to the ED?: No (was having chest pain, called 911) If the patient had a VNA ordered Did the patient have a VNA order?: Yes Did you call the VNA before you came?: No Ask the Care Team Members: What do you think caused the patient to be readmitted: continued nose bleeds ED visits How many ED visits in the past 12 months: 4 Anticipated HH Services Anticipated HH Services at [facility] Resumption, RN Anticipated Date of Discharge: 09/19/24. Following Provider: Santos bullard [facility].
[2024-09-18] MEDS: Insulin Aspart 300 UNITS/3 ML PEN SC ×2 (12:48→22:40)
--- NOTE | 2024-09-18 13:49 | PGE_ITS ---
Date of Service Date of service: 09/18/24 Time of Service: 13:50 Assessment and Plan Assessment and plan (1) Symptomatic anemia: Status: Acute Assessment and plan: -patient presented with exertional chest pain with negative trop and normal EKG -found to have Hb of 6.9, (down from mid 8's ~ 1 week ago) and said to have had multiple episode of epistaxis -ED discussed with [facility] cardiology; will transfuse and obtain TTE -ordered for 1U PRBCs, will monitor f/u Hb and give additional unit as needed -holding home ASA and eliquis -consider discusing with ENT for possible outpatient cauterization .12.08 On review of old records, the pt is noted to have a folate deficiency. Will add supplement. Post xfusion cbc is pending. Recent coag panel notes as well and benign (2) Epistaxis: Status: Acute Assessment and plan: -as noted above, not currently active (3) RLS (restless legs syndrome): Status: Chronic Assessment and plan: -continue home ropinerole (4) Hyperlipidemia: Status: Acute Assessment and plan: -continue home statin (5) Essential hypertension: Status: Acute Assessment and plan: -continue home spironolactone, losartan, lasix, chlorthalidone (6) CAD (coronary artery disease): Status: Chronic Assessment and plan: -contine regimen as noted above -holding ASA as noted above (7) Chronic pain: Status: Chronic Assessment and plan: -continue home fentanyl patch (8) Type 2 diabetes mellitus with circulatory disorder, with long-term current use of insulin: Status: Acute Assessment and plan: -continue home insulin regimen -SSI, CCD Subjective Subjective Interval history since last seen: Pt seen and examined in her room this am. POC d/w pt and with bedside nurse at [facility]. Pt states that she completed a transfuion in the ED of one unit. Pt does state that she has had a colonoscopy and barium swallow and she reports they were normal Exam Narrative Exam Narrative: This 73-year-old female presents pale but in no acute distress without any current chest pain, pupils equal round reactive to light and accommodation, no reproducible chest pain, cardiac rate rhythm regular, no abdominal tenderness, nares on the right, and turbinate there are 2 areas that look like coagulated areas without active bleeding, oropharynx patent, no blood noted, uvula midline, alert and oriented x 4, no peripheral edema, guaiac negative with out any visible blood in stool Objective Last Vital Signs Temp 36.1 C L 09/18/24 12:55 Pulse 65 09/18/24 12:55 Resp 14 09/18/24 12:55 BP 127/50 L 09/18/24 12:55 Pulse Ox 95 09/18/24 12:55 Laboratory Results - last 24 hr 09/17/24 09/17/24 09/17/24 16:50 17:22 18:24 WBC 13.73 H RBC 2.34 L Hgb 6.9 L* Hct 23.5 L MCV 100 H MCH 29.5 MCHC 29.4 L RDW 19.9 H Plt Count 311 MPV 10.1 Immature Gran % 2.6 Neutrophils % 80.6 Lymphocytes % 9.4 Monocytes % 6.3 Eosinophils % 0.5 Basophils % 0.6 Nucleated RBC % 0.2 Absolute Neutrophils 11.07 H Absolute Lymphocytes 1.29 Absolute Monocytes 0.86 H Absolute Eosinophils 0.07 Absolute Basophils 0.08 RBC Morphology See Below Polychromasia Present Hypochromasia 3+ Anisocytosis 2+ D-Dimer 527 H Sodium 144 Potassium 4.8 Chloride 107 Carbon Dioxide 24.7 Anion Gap 12.3 H BUN 39 H Creatinine 1.9 H Est GFR (CKD-EPI 2020) 27.54 Glucose 84 Calcium 8.8 Magnesium Total Bilirubin 0.33 AST 10 L ALT 16 Alkaline Phosphatase 77 Troponin I 9 10 NT-Pro-B Natriuret Pep 1046 H Total Protein 6.8 Albumin 3.0 L Lipase 81 H ABO/Rh A Positive Antibody Screen NEGATIVE Crossmatch See Detail 09/17/24 09/17/24 09/18/24 21:05 23:00 06:00 WBC 12.41 H 11.89 H RBC 2.54 L 2.40 L Hgb 7.4 L 7.0 L* Hct 24.9 L 23.6 L MCV 98 H 98 H MCH 29.1 29.2 MCHC 29.7 L 29.7 L RDW 19.8 H 19.9 H Plt Count 288 267 MPV 10.2 10.4 Immature Gran % 1.8 Neutrophils % 79.8 Lymphocytes % 10.9 Monocytes % 6.1 Eosinophils % 0.8 Basophils % 0.6 Nucleated RBC % 0.2 Absolute Neutrophils 9.90 H Absolute Lymphocytes 1.35 Absolute Monocytes 0.76 Absolute Eosinophils 0.10 Absolute Basophils 0.07 RBC Morphology Polychromasia Hypochromasia Anisocytosis D-Dimer Sodium 142 Potassium 4.4 Chloride 108 H Carbon Dioxide 25.3 Anion Gap 8.7 BUN 42 H Creatinine 1.6 H Est GFR (CKD-EPI 2020) 33.84 Glucose 130 H Calcium 8.5 Magnesium 1.9 Total Bilirubin AST ALT Alkaline Phosphatase Troponin I 9 NT-Pro-B Natriuret Pep Total Protein Albumin Lipase ABO/Rh Antibody Screen Crossmatch PAWSS Have you Been Recently Intoxicated or Drunk Within the Last 30 days?: No Have you Ever Experienced Previous Episodes of Alcohol Withdrawal?: No Have you ever Experienced Withdrawal Seizures?: No Have you ever Experienced Delirium Tremens(DT)s?: No Have you ever undergone Alcohol Rehabilitation Treatment (i.e, inpt ot outpatient treatment programs)?: No Have you ever Experienced Blackouts?: No Have you ever Combined Alcohol with other Downers within the last 90 days?: No Have you ever Combined Alcohol with any other Substance of Abuse during the last 90 days?: No Positive Blood Alcohol level on Presentation? [PCS.BAL]: No Evidence of Increased Autonomic Activity (i.e. HR>120, tremor, sweating, agitation, nausea)?: No Result: 0 Time Spent with Patient Time Spent with Patient: 25-34 minutes Time was spent: preparing to see the patient(eg.review tests), obtaining and/or reviewing separately otained hiistory, ordering medications,tests, procedures, referring, communicating with other health respiratory care assistant, indepentently interpreting results, counseling the patient and care coordination
[2024-09-18 16:10] LABS: HCT 28.5 % (36.0-46.0); HGB 8.7 g/dL (11.2-15.7)
[2024-09-18] MEDS: Losartan 50 MG TAB 100 MG PO (20:42)
[2024-09-18] MEDS: Atorvastatin 40 MG TAB PO (20:43)
[2024-09-18] MEDS: Insulin Glargine 300 UNITS/3 ML PEN 96 UNITS SC (20:43)
[2024-09-18] MEDS: Magnesium Oxide 400 MG TAB PO (20:43)
[2024-09-19 03:06] VITALS: BP 125/38; PULSE 71; RESP 16; TEMP 37.2; O2SAT 92
[2024-09-19 06:51] LABS: Abs Immature Grans 0.36 10^3/uL (0.0-0.06); Absolute Monocyte Count 0.84 10^3/uL (0.1-0.8); Absolute Neutrophil Count 9.98 10^3/uL (1.2-6.7); Basophils % 0.6 %; Eosinophils % 0.8 %; HCT 26.6 % (36.0-46.0); HGB 8.1 g/dL (11.2-15.7); Immature Grans % 2.9 %; Lymphocytes % 9.3 %; MCH 28.9 pg (27.0-33.0); MCHC 30.5 % (32.0-36.0); MCV 95 fL (80-95); MPV 10.6 fL (8.0-11.0); Monocytes % 6.7 %; Neutrophils % 79.7 %; Nucleated RBC 0.2 % (0.0-0.3); Platelet Count 312 10^3/uL (130-400); RDW 20.2 % (11.7-14.6); RDW-SD 67.5 fL; WBC 12.52 10^3/uL (4.4-10.8)
[2024-09-19 06:55] LABS: Absolute Basophil Count 0.08 10^3/uL (0.0-0.2); Absolute Lymphocyte Count 1.16 10^3/uL (1.2-3.4)
[2024-09-19 07:00] LABS: Prothrombin Time 10.3 sec (9.1-11.1)
[2024-09-19 07:01] LABS: Anisocytosis 2+; Diff Comment RBC Morph Reviewed
[2024-09-19] MEDS: Hydroxyurea 500 MG CAP 1000 MG PO (07:41)
[2024-09-19] MEDS: DULoxetine 30 MG CAP 90 MG PO (07:42)
[2024-09-19] MEDS: Spironolactone 25 MG TAB PO (07:42)
[2024-09-19] MEDS: Chlorthalidone 25 MG TAB 100 MG PO (07:42)
[2024-09-19] MEDS: Potassium Chloride 10 MEQ TABCR PO (07:42)
[2024-09-19] MEDS: Folic Acid 1 MG TAB PO (07:42)
[2024-09-19] MEDS: Ferrous Sulfate 325 MG TAB PO (07:42)
[2024-09-19] MEDS: Normal Saline Flush 10 ML SYR IVP ×3 (07:43→20:06)
[2024-09-19] MEDS: Furosemide 20 MG TAB PO (07:43)
[2024-09-19] MEDS: Carvedilol 12.5 MG TAB PO ×2 (07:43→17:07)
[2024-09-19 07:53] VITALS: BP 142/45; PULSE 68; RESP 16; TEMP 36.4; O2SAT 89
[2024-09-19] MEDS: Insulin Aspart 300 UNITS/3 ML PEN SC (12:02)
--- NOTE | 2024-09-19 12:53 | PHA.REVIEW2 ---
Pharmacy Admission Review Admission Clinical Review Admission Pharmacy Review: Symptomatic anemia (Acute) Epistaxis (Acute) Type 2 diabetes mellitus with circulatory disorder, with long-term current use of insulin (Acute) Hyperlipidemia (Acute 01/14/14) Essential hypertension (Acute 08/18/13) clopidogrel Allergy (Verified 09/17/24 16:35) Skin Rash oxybutynin Adverse Reaction (Intermediate, Verified 09/17/24 16:35) Reflex propoxyphene Adverse Reaction (Verified 09/17/24 16:35) Nausea Resuscitation Status Full Code Height 5 ft 10 in Weight 106.6 kg Pharmacy Admission Review Renal Dosing Renal Dosing: BUN 42 mg/dL (7-18) H 09/18/24 06:00 Creatinine 1.6 mg/dL (0.55-1.02) H 09/18/24 06:00 Medications needing adjustments: Reviewed (CrCl 41.4 mL/min) List of meds needing interventions: Current medications are okay Anticoagulation Anticoagulation: Hgb 8.1 g/dL (11.2-15.7) L 09/19/24 06:15 Hct 26.6 % (36.0-46.0) L 09/19/24 06:15 Plt Count 312 10^3/uL (130-400) 09/19/24 06:15 INR 1.0 (0.9-1.1) 09/19/24 06:15 Creatinine 1.6 mg/dL (0.55-1.02) H 09/18/24 06:00 DVT Prophylaxis: Reviewed (None at this time - anemic, Hgb decreased from 8.7 - received 2 units of PRBC yesterday) Opiate Usage Evaluate Pain Scale/Pains Meds: Reviewed (Fentanyl 12mcg patch) Scheduled Bowel Reg ordered if on Opiates?: No (PRN docusate/Miralax) Relevant Labs Relevant Labs: Sodium 142 mmol/L (136-145) 09/18/24 06:00 Potassium 4.4 mmol/L (3.5-5.1) 09/18/24 06:00 Chloride 108 mmol/L (98-107) H 09/18/24 06:00 Magnesium 1.9 mg/dL (1.8-2.4) 09/18/24 06:00 Electrolytes, C-Reactive P, ESR: Reviewed (WBC increased from 11.89 to 12.52) DM Control DM Control: Glucose 130 mg/dL (74-106) H 09/18/24 06:00 Finger Stick Blood Glucose 143 1141 Finger Stick Blood Glucose 143 1141 Finger Stick Blood Glucose 164 0932 Finger Stick Blood Glucose 164 0932 Finger Stick Blood Glucose 87 0751 Finger Stick Blood Glucose 87 0751 DM Control: Reviewed Insulin Dosing, Diabetic Medication: Has order for SS insulin and glargine 96 units at bedtime Cardiac Review Cardiac Review: Troponin I 9 ng/L (<or=51) 09/17/24 21:05 NT-Pro-B Natriuret Pep 1046 pg/mL (<300) H 09/17/24 16:50 Blood Pressure 142/45 0753 Blood Pressure 125/38 0306 BP, HR, EF%: Reviewed (HR WNL, Ox 89) List meds needing interventions: Has order for carvedilol 12.5mg BID, chlorthalidone 100mg daily, furosemide 20mg daily and losartan 100mg daily. QTc Review QTc: Reviewed (431 from 09/17/23) IV to PO Switch IV Medications: Reviewed Home Meds Home Med List reviewed: Reviewed Relevent Home Meds Not ordered & why?: ASA (on hold), Eliquis (on hold), ibuprofen (PRN), Tresiba (has order for glargine), metformin (has order for SS insulin) and Mounjaro (has order for SS insulin) Current Meds Current Medication Order Review: Reviewed
--- NOTE | 2024-09-19 14:29 | PGE_ITS ---
Date of Service Date of service: 09/19/24 Time of Service: 14:29 Assessment and Plan Assessment and plan (1) Symptomatic anemia: Status: Acute Assessment and plan: -patient presented with exertional chest pain with negative trop and normal EKG -found to have Hb of 6.9, (down from mid 8's ~ 1 week ago) and said to have had multiple episode of epistaxis -ED discussed with [facility] cardiology; will transfuse and obtain TTE -ordered for 1U PRBCs, will monitor f/u Hb and give additional unit as needed -holding home ASA and eliquis -consider discusing with ENT for possible outpatient cauterization 09.18.24 On review of old records, the pt is noted to have a folate deficiency. Will add supplement. Post xfusion cbc is pending. Recent coag panel notes as well and benign 09/19/24 PT did respond appropriately to 2unit blood transfusion but has regressed from a high of 8.7 post xfusion to 8.1 today. Will recheck cbc in am and if still dropping, consider a GS consult. Per my disucssion with the pt, she states the had a colonoscopy appx 5 years ago and no concerns were brought up. Pt also states she had a barium swallow at or around that time as well. Pt states this was done for screening purposes. (2) Epistaxis: Status: Acute Assessment and plan: -as noted above, not currently active (3) RLS (restless legs syndrome): Status: Chronic Assessment and plan: -continue home ropinerole (4) Hyperlipidemia: Status: Acute Assessment and plan: -continue home statin (5) Essential hypertension: Status: Acute Assessment and plan: -continue home spironolactone, losartan, lasix, chlorthalidone 09.19.24 Pt's BP is mildly/moderately elevated to 142/45 (6) CAD (coronary artery disease): Status: Chronic Assessment and plan: -contine regimen as noted above -holding ASA as noted above (7) Chronic pain: Status: Chronic Assessment and plan: -continue home fentanyl patch (8) Type 2 diabetes mellitus with circulatory disorder, with long-term current use of insulin: Status: Acute Assessment and plan: -continue home insulin regimen -SSI, CCD Subjective Subjective Interval history since last seen: Pt seen and examined in her room this am. No new complaints noted. POC d/w pt as well as with bedside nurse during MDR. Pt denies anymore episodes of epistaxis but did complain of some palpitations and sob which has resolved on it's own. Exam Narrative Exam Narrative: This 73-year-old female presents pale but in no acute distress without any current chest pain, pupils equal round reactive to light and accommodation, no reproducible chest pain, cardiac rate rhythm regular, no abdominal tenderness, nares on the right, and turbinate there are 2 areas that look like coagulated areas without active bleeding, oropharynx patent, no blood noted, uvula midline, alert and oriented x 4, no peripheral edema, guaiac negative with out any visible blood in stool Objective Last Vital Signs Temp 36.4 C L 09/19/24 07:53 Pulse 68 09/19/24 07:53 Resp 16 09/19/24 07:53 BP 142/45 H 09/19/24 07:53 Pulse Ox 89 L 09/19/24 07:53 Laboratory Results - last 24 hr 09/17/24 09/18/24 09/19/24 17:22 16:02 06:15 WBC 12.52 H RBC 2.80 L Hgb 8.7 L 8.1 L Hct 28.5 L 26.6 L MCV 95 MCH 28.9 MCHC 30.5 L RDW 20.2 H Plt Count 312 MPV 10.6 Immature Gran % 2.9 Neutrophils % 79.7 Lymphocytes % 9.3 Monocytes % 6.7 Eosinophils % 0.8 Basophils % 0.6 Nucleated RBC % 0.2 Absolute Neutrophils 9.98 H Absolute Lymphocytes 1.16 L Absolute Monocytes 0.84 H Absolute Eosinophils 0.10 Absolute Basophils 0.08 RBC Morphology See Below Anisocytosis 2+ PT 10.3 INR 1.0 Crossmatch See Detail PAWSS Have you Been Recently Intoxicated or Drunk Within the Last 30 days?: No Have you Ever Experienced Previous Episodes of Alcohol Withdrawal?: No Have you ever Experienced Withdrawal Seizures?: No Have you ever Experienced Delirium Tremens(DT)s?: No Have you ever undergone Alcohol Rehabilitation Treatment (i.e, inpt ot outpatient treatment programs)?: No Have you ever Experienced Blackouts?: No Have you ever Combined Alcohol with other Downers within the last 90 days?: No Have you ever Combined Alcohol with any other Substance of Abuse during the last 90 days?: No Positive Blood Alcohol level on Presentation? [PCS.BAL]: No Evidence of Increased Autonomic Activity (i.e. HR>120, tremor, sweating, agitation, nausea)?: No Result: 0 Time Spent with Patient Time Spent with Patient: 35-49 minutes Time was spent: preparing to see the patient(eg.review tests), obtaining and/or reviewing separately otained hiistory, ordering medications,tests, procedures, indepentently interpreting results, counseling the patient and care coordination
[2024-09-19 15:44] VITALS: BP 115/70; PULSE 64; RESP 16; TEMP 35.8; O2SAT 93
[2024-09-19 17:03] VITALS: BP 117/43; PULSE 64
[2024-09-19 19:30] VITALS: BP 122/41; PULSE 66; RESP 15; TEMP 36.3; O2SAT 93
[2024-09-19] MEDS: Losartan 50 MG TAB 100 MG PO (20:03)
[2024-09-19] MEDS: Magnesium Oxide 400 MG TAB PO (20:03)
[2024-09-19] MEDS: Nystatin CREAM 15 GM TUBE TP (20:06)
[2024-09-19] MEDS: Insulin Glargine 300 UNITS/3 ML PEN 96 UNITS SC (20:07)
[2024-09-19 23:34] VITALS: BP 141/55; PULSE 63; RESP 18; TEMP 36.4; O2SAT 95
[2024-09-20] MEDS: Atorvastatin 40 MG TAB PO (00:51)
[2024-09-20 03:02] VITALS: BP 109/38; PULSE 64; RESP 16; TEMP 36.3; O2SAT 93
[2024-09-20 06:43] LABS: HCT 29.1 % (36.0-46.0); HGB 8.6 g/dL (11.2-15.7); MCH 29.1 pg (27.0-33.0); MCHC 29.6 % (32.0-36.0); MCV 98 fL (80-95); MPV 10.7 fL (8.0-11.0); Nucleated RBC 0.2 % (0.0-0.3); Platelet Count 364 10^3/uL (130-400); RBC 2.96 10^6/uL (3.93-5.22); RDW-SD 67.7 fL; WBC 12.13 10^3/uL (4.4-10.8)
[2024-09-20 06:45] VITALS: BP 120/38; PULSE 65; RESP 16; TEMP 36.3; O2SAT 97
[2024-09-20 07:02] LABS: Absolute Basophil Count 0.12 10^3/uL (0.0-0.2); Absolute Eosinophil Count 0.12 10^3/uL (0.0-0.7); Absolute Lymphocyte Count 1.33 10^3/uL (1.2-3.4); Absolute Monocyte Count 0.12 10^3/uL (0.1-0.8); Absolute Neutrophil Count 10.07 10^3/uL (1.2-6.7); Metamyelocytes % 2; Myelocytes % 1
[2024-09-20 07:03] LABS: Diff Comment Manual Differential; RBC Morphology Normal
[2024-09-20 07:31] VITALS: BP 131/54; PULSE 63; RESP 16; TEMP 36.2; O2SAT 94
[2024-09-20] MEDS: DULoxetine 30 MG CAP 90 MG PO (08:58)
[2024-09-20] MEDS: Furosemide 20 MG TAB PO (08:58)
[2024-09-20] MEDS: Folic Acid 1 MG TAB PO (08:58)
[2024-09-20] MEDS: Chlorthalidone 25 MG TAB 100 MG PO (08:58)
[2024-09-20] MEDS: Spironolactone 25 MG TAB PO (08:58)
[2024-09-20] MEDS: Ferrous Sulfate 325 MG TAB PO (08:59)
[2024-09-20] MEDS: Carvedilol 12.5 MG TAB PO (08:59)
[2024-09-20] MEDS: Potassium Chloride 10 MEQ TABCR PO (08:59)
[2024-09-20] MEDS: Hydroxyurea 500 MG CAP 1000 MG PO (08:59)
[2024-09-20] MEDS: Normal Saline Flush 10 ML SYR IVP (09:00)
[2024-09-20] MEDS: Nystatin CREAM 15 GM TUBE TP (09:27)
--- NOTE | 2024-09-20 10:08 | DSE_ITS ---
Date of service: 09/20/24 Time of Service: 10:08 DS: Diagnosis Discharge Diagnosis (1) Symptomatic anemia: Status: Acute (2) Epistaxis: Status: Acute (3) RLS (restless legs syndrome): Status: Chronic (4) Hyperlipidemia: Status: Acute (5) Essential hypertension: Status: Acute (6) CAD (coronary artery disease): Status: Chronic (7) Chronic pain: Status: Chronic (8) Type 2 diabetes mellitus with circulatory disorder, with long-term current use of insulin: Status: Acute Discharge Plan Disposition Patient Disposition: Home W/Home Health Services Condition: Good Discharge Details Reason For Visit: Symptomatic Anemia Admit Date/Time: 09/17/24 20:17 Admit Provider: Mahin Espinal Attending Provider: Mahin Espinal Primary Care Provider: Gui Graham Hospital Course Hospital Course: Patient initially presented with signs and symptoms consistent with symptomatic anemia secondary to epistaxis and on chronic anticoagulation. Her aspirin and Eliquis were held and during hospitalization she was given a total of 2 units of packed red blood cells with significant improvement of her hemoglobin which was 6.9 in the emergency department and went back up and stabilized in the high eights. Ultimately, given that patient did not have recurrence of epistaxis and her hemoglobin was stable was determined she was stable for discharge and recommend close outpatient follow-up with ENT. It was also recommended that she restart her ASA and hold eliquis at this time. Home Meds and New Rx's Prescriptions: Continued carvedilol 12.5 mg tablet 12.5 mg PO BID Rx Instructions: must administer with a meal/food Mounjaro 2.5 mg/0.5 mL pen injector 2.5 mg subcut QWEEK MDD 2.5 28 Days Qty: 2 12RF Rx Instructions: Inject 2.5 mg subcutaneously once weekly as directed. fentanyl 12 mcg/hr patch 72 hour 1 patch transdermal Q72H MDD 1 patch Qty: 5 0RF vibegron 75 mg tablet 75 mg PO DAILY Qty: 90 3RF Rx Instructions: per [facility] gyne, for urge incontinence potassium chloride 10 mEq tablet extended release 10 meq PO DAILY Qty: 90 3RF folic acid 1 mg tablet 1 mg PO DAILY magnesium 250 mg tablet 500 mg PO QHS atorvastatin 40 mg tablet 40 mg PO DAILY Qty: 90 3RF chlorthalidone 50 mg tablet 100 mg PO DAILY Qty: 180 3RF duloxetine 60 mg capsule,delayed release(DR/EC) 60 mg PO DAILY Qty: 90 3RF duloxetine 30 mg capsule,delayed release(DR/EC) 30 mg PO DAILY Qty: 90 3RF Rx Instructions: take with a 60 mg capsule to equal 90 mg/day furosemide 20 mg tablet 20 mg PO DAILY Qty: 90 3RF metformin 500 mg tablet 500 mg PO BID Qty: 180 3RF spironolactone [Aldactone] 25 mg tablet 25 mg PO DAILY Qty: 90 3RF hydroxyurea 500 mg capsule 500 - 1,000 mg PO DAILY Qty: 115 3RF Rx Instructions: 500 mg/day except take 1000 mg Sat and Saturday aspirin [Adult Aspirin Regimen] 81 mg tablet,delayed release (DR/EC) 81 mg PO DAILY insulin degludec [Tresiba FlexTouch U-200] 200 unit/mL (3 mL) insulin pen 120 unit subcut HS Rx Instructions: Inject 120 units subcutaneously once daily as directed ibuprofen 600 mg tablet 600 mg PO TID PRN (Reason: pain) Qty: 90 0RF losartan 100 mg tablet 100 mg PO HS ferrous sulfate 325 mg (65 mg iron) Tablet 325 mg PO DAILY Qty: 30 0RF ropinirole 8 mg tablet extended release 24 hr 8 mg PO HS Discontinued Eliquis 5 mg tablet 5 mg PO BID Qty: 60 11RF Rx Instructions: Per discharge from [facility] on 05/18/2022 No Action (DME) Dexcom G7 Belt Sewer Misc See Rx Instructions .Route Qty: 1 0RF Rx Instructions: As directed (DME) Dexcom G7 Sensor Device See Rx Instructions .Route Qty: 1 11RF Rx Instructions: As directed (DME) blood-glucose meter [Accu-Chek Guide Glucose Meter] Misc See Rx Instructions .ROUTE .MEDSUPPLY Qty: 1 0RF Rx Instructions: test as directed (DME) insulin syringe-needle U-100 [BD Insulin Syringe Ultra-Fine] 1 mL 31 gauge x 5/16 syringe See Rx Instructions .ROUTE .MEDSUPPLY Qty: 180 3RF Rx Instructions: 1 injection sq BID (DME) Accu-Chek Guide test strips Strip 1 ea Miscellaneous DAILY Qty: 300 3RF Rx Instructions: test 3 x day (DME) lancets Misc 1 ea Miscellaneous DAILY Qty: 300 3RF Rx Instructions: test 3 x /day Discharge Instructions Referrals: Miguel Moreno MD [ [facility] STAFF PHYSICIAN] - Activity:: Activity as Tolerated Equipment/Supplies:: No Equipment Needed Diet:: As Tolerated Discharge Orders Discharge Orders: Discharge Order (Routine); Ordered 09/20/24 Ordered By: Mahin Espinal DS: Summary Time Spent with Patient providing and/or coordinating discharge services: Greater than 30 minutes Status at Discharge Functional status at discharge: independent ambulation Overall status at discharge: patient is back to baseline Mental Status: mental status grossly normal Speech and Movement: speech and movement normal Mood: congruent mood Affect: normal affect Quality:SDOH Health Related Social Needs: No Data to Display Exam Narrative Exam Narrative: Well-appearing older female laying in bed in no acute distress, ANO x 4, heart regular rhythm, lungs clear to auscultation bilaterally, abdomen soft, nontender, nondistended Psych Mental Status: mental status grossly normal Speech and Movement: speech and movement normal Mood: congruent mood Affect: normal affect DS: Data Vitals/I&O Vitals and I&O: Vital Signs Temperature 97.2 F L 09/20/24 07:31 Temperature Source Tympanic 09/20/24 07:31 Pulse 63 09/20/24 07:31 Pulse Rhythm Regular 09/17/24 22:00 Pulse 75 09/17/24 21:40 Respiratory Rate 16 09/20/24 07:31 Respiratory Effort Normal, Non-Labored 09/17/24 22:00 Respiratory Depth Normal 09/17/24 22:00 Respiratory Pattern Normal 09/17/24 22:00 Blood Pressure 131/54 L 09/20/24 07:31 Blood Pressure Mean 61 09/17/24 21:31 Blood Pressure Position Sitting 09/17/24 16:29 Pulse Oximetry 94 09/20/24 07:31 Oxygen Delivery Method Room Air 09/20/24 07:31 Oxygen Flow Rate 0 09/20/24 07:31 Pain Level 7 09/20/24 07:31 Comment vitals relayed to RN 09/19/24 07:53 Intake & Output 09/19/24 09/20/24 09/20/24 17:59 05:59 17:59 Intake Total 910 / 930 480 / 480 Output Total 300 / 300 Balance 610 / 630 480 / 480 Intake: IV 20 / 20 10 / 30 Oral 900 / 900 480 / 480 Output: Urine 300 / 300 Other: Urine Color Pale Urine Appearance Clear Urine Odor None Comment Unmeasured, unwitnessed amount voided into toilet. Data Completed and Pending Labs on day of discharge: Labs from last 24 hours 09/20/24 06:11 WBC 12.13 H RBC 2.96 L Hgb 8.6 L Hct 29.1 L MCV 98 H MCH 29.1 MCHC 29.6 L RDW 20.0 H Plt Count 364 MPV 10.7 Immature Gran % 0.0 Neutrophils % 83.0 Lymphocytes % 11.0 Monocytes % 1.0 Eosinophils % 1.0 Basophils % 1.0 Metamyelocytes % 2 Myelocytes % 1 Nucleated RBC % 0.2 Absolute Neutrophils 10.07 H Absolute Lymphocytes 1.33 Absolute Monocytes 0.12 Absolute Eosinophils 0.12 Absolute Basophils 0.12 RBC Morphology Normal PFSH All Active Problems (Updated 09/17/24 @ 22:56 by HUDSON Jones) Chest pain (Acute) Chronic pain (Chronic) CAD (coronary artery disease) (Chronic) Symptomatic anemia (Acute) KEVIN (acute kidney injury) (Acute) Acute confusion (Acute) Epistaxis (Acute) Severe anemia (Acute) Multiple open wounds of right lower leg (Acute) Chronic pain of right lower extremity (Acute) Bilateral carpal tunnel syndrome (Acute) B/L ECTR: 06/24/2024 Ulnar neuropathy of both upper extremities (Acute) Renal lesion (Acute) Phlegm in throat (Acute) Hand numbness (Acute) Lipodermatosclerosis (Acute) Bladder leak (Acute) Weight gain (Acute) Rash (Acute) Change in bowel habits (Acute) 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 Luke gorman. 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 ALEX (obstructive sleep apnea) (Chronic 03/11/18) not on CPAP due to bedroom size Hyperlipidemia (Acute 01/14/14) History of tobacco use (Acute) Essential hypertension (Acute 08/18/13) Cataracts, both eyes (Acute) 11/11/15 OPTICAL EXPRESSIONS; EARLY CATARACTS B12 deficiency (Acute 04/08/15) Atherosclerosis of [place] coronary artery (Acute) Stent RCA 2006 Hyperlipidemia (Chronic) Hypertension (Chronic) CAD (coronary artery disease) (Chronic) S/P stent 2004 Peripheral vascular disease (Chronic) S/P right SFA antioplasty an sstenting, 2003. Left DVA to [place] popliteal bypass with [place], 2003. Bypass Left Stent Right 2006 left BKA 08/28 Medical History Venous insufficiency of leg Atrial fibrillation Fracture, femur closed, shaft (05/13/22) (L) Carpal tunnel syndrome (05/16/09) Hypertension History of tobacco abuse Quit 2004 Surgical History Status post amputation of lesser toe of right foot History of left hip replacement History of total replacement of left shoulder joint 02/08/23. -hb S/P peripheral artery angioplasty with stent placement Status post below-knee amputation of left lower extremity (2012) History of total right hip replacement (08/03/20) Hx of tubal ligation History of carpal tunnel release Bilaterally Family History Mother , 74 Neoplasm UTERINE Osteoporosis Uterine cancer Lung cancer Father Lung cancer Sister Neoplasm MELANOMA Breast cancer Sister No problems noted. Sister Skin cancer Brother No problems noted. Son Alcohol abuse Depression Maternal Grandfather Stomach cancer Paternal Grandfather No problems noted. Maternal Grandmother No problems noted. Paternal Grandmother No problems noted. Daughter Depression Social History Smoking/Tobacco Use Status: Former Tobacco Use tobacco type: cigarettes Quit Date: 09/16/04 Tobacco: How many years used: 37 Second Hand Exposure: Yes Smoking risk assessment performed?: Yes Alcohol Intake: current Alcohol Intake frequency: a few times a month Alcohol type: beer and hard liquor Drug use: Never Substance use type: does not use Details: Patient drank a alcoholic beverage yesterday (06/23) Caregiver/Support person: No Household members: none Housing: house Do you need help understanding health information?: Rarely current occupation: [employer] Pets and animals: Yes Pets and animals: cat(s) Sexually active: No Do you think of yourself as: straight/heterosexual Current gender identity: female What is your relationship status?: How often do you talk on the phone with friends or family?: three or more times per week How often do you get together with friends or relatives?: decline to answer How often do you attend restorationist or restoration services?: 1-3 times per year Do you belong to any clubs or organized social groups?: no Panel score (0-1 are the most socially isolated patients): 2 What type of physical activity do you participate in: none Carmelina/Adventist: [employer]aritan Special carmelina needs: No Seatbelt use: always Helmet use: Yes Helmet use: always Drive intox 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 tank wagon driver: No Do you feel safe at home: Yes Do you feel safe in your relationship?: Yes Would you like helpful sources: No Time Spent with Patient Time Spent with Patient: <45 minutes Time was spent: preparing to see the patient(eg.review tests), obtaining and/or reviewing separately otained hiistory, ordering medications,tests, procedures, referring, communicating with other health director of medicare, indepentently interpreting results, counseling the patient and care coordination
--- NOTE | 2024-09-20 10:09 | PDOC.HHF2F_ITS ---
Home Health Referral Home Health Orders Clinical synopsis of why skilled professionals are needed: IDDM, right AKA, a-fib on eliquis, epistaxis Physical Therapist: Check all that apply Increase strength & endurance for safe mobility at home: Ordered Encounter Date and Reason: I certify that a FTF encounter for this patient was performed on September 20, 2024 and that such encounter was related to the primary reason the patient requires home health services. The encounter was conducted in the following manner: * By me as the certifying physician, DOG HANDLER OR TRAINER, PA or * By an inpatient physician, DOG HANDLER OR TRAINER or PA during an inpatient stay who communicated findings to me, Certification And Authentication I certify that I composed the above information based on my clinical judgment relating to this patient's medical condition and, if applicable, clinical findings communicated to me by the NPP or inpatient physician who performed the FTF encounter. Name of Provider that will be monitoring home health services: Gui Graham
--- NOTE | 2024-09-20 16:34 | PDOC.CMDIS ---
Date of service: 09/20/24 Time of Service: 16:35 LACE Index Scoring Tool Questions: Length of Stay (in days): 3 Was the patient admitted via the E.D.?: Yes Comorbidities: Diabetes w/o Complication E.D. Visits: 3 Answers: Total Score: 10 Risk of Readmission: High Risk Care Management Discharge Plan Reason for Hospitalization: symptomatic anemia Discharge Plan: Emilia returned home today with a resumption of HH RN, and the addition of HH PT. She was transported home via private vehicle. She will follow up with her PCP and discharge plan of care. Patient/Family Education Needs: Review discharge instructions and limitations, discussion of self care needs including ask me three. Services Needed at Discharge: Home Health Care Services (resume HH RN; add PT) SDOH Health Related Social Needs: No Data to Display
== END 2024-09-20 12:32 | disposition home health service (06) | DRG 812 ==
LOC: ER 17:00 → MS 21:54
PROVIDERS: Hospitalist; Admitting Provider Family Medicine; Emergency Provider Physician Assistant; PCP Family Medicine; Visit Provider Family Medicine
DX: D50.9 Iron deficiency anemia, unspecified (principal); N17.9 Acute kidney failure, unspecified; R04.0 Epistaxis; G25.81 Restless legs syndrome; E78.5 Hyperlipidemia, unspecified; I10 Essential (primary) hypertension; I25.10 Atherosclerotic heart disease of native coronary artery without angina pectoris; G89.29 Other chronic pain; E11.59 Type 2 diabetes mellitus with other circulatory complications; Z79.4 Long term (current) use of insulin; Z79.82 Long term (current) use of aspirin; Z79.01 Long term (current) use of anticoagulants; Z79.84 Long term (current) use of oral hypoglycemic drugs; R07.89 Other chest pain; I25.2 Old myocardial infarction; Z95.5 Presence of coronary angioplasty implant and graft; D47.3 Essential (hemorrhagic) thrombocythemia; M17.11 Unilateral primary osteoarthritis, right knee; E53.8 Deficiency of other specified B group vitamins; I73.9 Peripheral vascular disease, unspecified; Z89.512 Acquired absence of left leg below knee; Z95.828 Presence of other vascular implants and grafts; Z87.891 Personal history of nicotine dependence; Z96.643 Presence of artificial hip joint, bilateral; Z96.612 Presence of left artificial shoulder joint
CPT/HCPCS: 00123; 36415; 36430; 80048; 80053; 83690; 85027; 86850; 86900; 86901; 86920; 93005; 93306; 99285; 71046; 83735; 83880; 84484; 85014; 85018; 85025; 85379; 85610; 93010; 99223; 99232; 99233; 99239; J1815; J3490; J9999; P9016

== ENCOUNTER → 2024-09-24 11:14 | Outpatient (BNVA) | payer MEDICARE, BC, SELFPAY | PROVIDERS: PCP Family Medicine; Referring Provider Family Medicine; Visit Provider Physician Assistant | DX: M75.101 Unspecified rotator cuff tear or rupture of right shoulder, not specified as traumatic (principal); M12.811 Other specific arthropathies, not elsewhere classified, right shoulder | CPT/HCPCS: 20611; 99024; 99213; J1010 ==

== ENCOUNTER 2024-10-14 04:12 | Outpatient (CLI) | payer MEDICARE, BC, SELFPAY ==
[2024-10-14 10:22] LABS: ALT 14 U/L (14-59); AST 9 U/L (15-37); Albumin 3.5 g/dL (3.4-5.0); Alkaline Phosphatase 99 U/L (46-116); Anion Gap 8.5 mmol/L (3-11); BUN 47 mg/dL (7-18); Bilirubin, Total 0.39 mg/dL (0.2-1.0); CO2 25.5 mmol/L (21.0-32.0); CREATININE 1.8 mg/dL (0.55-1.02); Calcium 9.2 mg/dL (8.5-10.1); Chloride 107 mmol/L (98-107); Estimated GFR 29.38 (mL/min/1.73m2); Glucose 156 mg/dL (74-106); Potassium 4.9 mmol/L (3.5-5.1); Sodium 141 mmol/L (136-145); Total Protein 7.4 g/dL (6.4-8.2)
[2024-10-14 11:30] LABS: Abs Immature Grans 0.08 10^3/uL (0.0-0.06); Absolute Basophil Count 0.09 10^3/uL (0.0-0.2); Absolute Eosinophil Count 0.14 10^3/uL (0.0-0.7); Absolute Lymphocyte Count 0.98 10^3/uL (1.2-3.4); Absolute Monocyte Count 0.67 10^3/uL (0.1-0.8); Absolute Neutrophil Count 7.82 10^3/uL (1.2-6.7); Basophils % 0.9 %; Eosinophils % 1.4 %; HCT 37.2 % (36.0-46.0); Immature Grans % 0.8 %; MCH 31.2 pg (27.0-33.0); MCHC 29.6 % (32.0-36.0); MCV 105 fL (80-95); Monocytes % 6.9 %; RBC 3.53 10^6/uL (3.93-5.22); RDW 21.5 % (11.7-14.6); RDW-SD 83.3 fL; WBC 9.78 10^3/uL (4.4-10.8)
[2024-10-14 11:46] LABS: Anisocytosis 1+; Diff Comment RBC Morph Reviewed; Macrocytosis 1+
[2024-10-14 11:47] LABS: Polychromasia Present
[2024-10-14 11:48] LABS: Poikilocytes 2+
[2024-10-14 11:49] LABS: Ferritin 25 ng/mL (8-252)
== END 2024-10-14 04:13 | disposition home or self-care (01) ==
PROVIDERS: Internal Medicine Hematology & Oncology; PCP Family Medicine; Visit Provider Nurse Practitioner Adult Health
DX: D47.1 Chronic myeloproliferative disease (principal); D47.3 Essential (hemorrhagic) thrombocythemia; D75.839 Thrombocytosis, unspecified
CPT/HCPCS: 36415; 80053; 82728; 85025

== ENCOUNTER 2024-11-10 21:08 | Emergency (ER) | payer MEDICARE, BC, SELFPAY ==
[2024-11-10 21:15] VITALS: BP 180/73; PULSE 81; RESP 20; TEMP 36.9; O2SAT 94
--- NOTE | 2024-11-10 22:05 | ED.GENADUL_ITS ---
Discharge Plan Disposition Patient Disposition: Home Condition: Stable Discharge Details Clinical Impression: Epistaxis Primary Care Provider: Gui Graham ED Provider: Jeronimo Houston Home Meds and New Rx's Prescriptions: Continued carvedilol 12.5 mg tablet 12.5 mg PO BID Rx Instructions: must administer with a meal/food Mounjaro 2.5 mg/0.5 mL pen injector 2.5 mg subcut QWEEK MDD 2.5 28 Days Qty: 2 12RF Rx Instructions: Inject 2.5 mg subcutaneously once weekly as directed. fentanyl 25 mcg/hr patch 72 hour 1 patch transdermal Q72H MDD 1 patch Qty: 5 0RF Patient Comments: doesn't have one on now (DME) Dexcom G7 Sensor Device See Rx Instructions .Route Qty: 1 11RF Rx Instructions: As directed apixaban 2.5 mg tablet 2.5 mg PO BID Qty: 180 3RF cyclobenzaprine 5 mg tablet 5 mg PO QHS Qty: 7 0RF (DME) Dexcom G7 Microfilm Duplicating Unit Supervisor Misc See Rx Instructions .Route Qty: 1 0RF Rx Instructions: As directed vibegron 75 mg tablet 75 mg PO DAILY Qty: 90 3RF Rx Instructions: per [facility] gyne, for urge incontinence potassium chloride 10 mEq tablet extended release 10 meq PO DAILY Qty: 90 3RF (DME) blood-glucose meter [Accu-Chek Guide Glucose Meter] Misc See Rx Instructions .ROUTE .MEDSUPPLY Qty: 1 0RF Rx Instructions: test as directed (DME) insulin syringe-needle U-100 [BD Insulin Syringe Ultra-Fine] 1 mL 31 gauge x 5/16 syringe See Rx Instructions .ROUTE .MEDSUPPLY Qty: 180 3RF Rx Instructions: 1 injection sq BID folic acid 1 mg tablet 1 mg PO DAILY (DME) Accu-Chek Guide test strips Strip 1 ea Miscellaneous DAILY Qty: 300 3RF Rx Instructions: test 3 x day magnesium 250 mg tablet 500 mg PO QHS atorvastatin 40 mg tablet 40 mg PO DAILY Qty: 90 3RF chlorthalidone 50 mg tablet 100 mg PO DAILY Qty: 180 3RF duloxetine 60 mg capsule,delayed release(DR/EC) 60 mg PO DAILY Qty: 90 3RF duloxetine 30 mg capsule,delayed release(DR/EC) 30 mg PO DAILY Qty: 90 3RF Rx Instructions: take with a 60 mg capsule to equal 90 mg/day furosemide 20 mg tablet 20 mg PO DAILY Qty: 90 3RF metformin 500 mg tablet 500 mg PO BID Qty: 180 3RF spironolactone [Aldactone] 25 mg tablet 25 mg PO DAILY Qty: 90 3RF hydroxyurea 500 mg capsule 500 - 1,000 mg PO DAILY Qty: 115 3RF Rx Instructions: 500 mg/day except take 1000 mg Sat and Saturday aspirin [Adult Aspirin Regimen] 81 mg tablet,delayed release (DR/EC) 81 mg PO DAILY ibuprofen 600 mg tablet 600 mg PO TID PRN (Reason: pain) Qty: 90 0RF losartan 100 mg tablet 100 mg PO HS ferrous sulfate 325 mg (65 mg iron) Tablet 325 mg PO DAILY Qty: 30 0RF ropinirole 8 mg tablet extended release 24 hr 8 mg PO HS No Action (DME) lancets Misc 1 ea Miscellaneous DAILY Qty: 300 3RF Rx Instructions: test 3 x /day insulin glargine [Lantus Solostar U-100 Insulin] 100 unit/mL (3 mL) insulin pen 100 unit subcut QAM Qty: 90 3RF amoxicillin-pot clavulanate 875-125 mg tablet 1 tab PO BID Qty: 14 0RF Discharge Instructions Instructions: Nosebleeds ED Additional Instructions: You were seen in the emergency department for your bilateral nosebleed, we had to pack both your nares with Rhino Rocket soaked in TXA-a hemostatic substance. Terribly sorry how uncomfortable this may be but you need to leave these in for likely 5 days. I know you are having an upcoming vacation on Saturday, should you desire more acute removal and possible surgical management you can contact Dr. Moreno's office to see if they can squeeze you in it will be unlikely that they would recommend removal after 3 days. You need to carefully monitor your condition and return to an emergency department immediately should you experience significant bleeding or blood run donald down the back of your throat despite being bilaterally packed. Referrals: [facility] [Provider Group] Gui Graham MD [Primary Care Provider] - Discharge Data Discharge Date/Time-TO BE ENTERED AT DEPARTURE: 11/10/24 23:26 HPI General Date/Time Provider Initiated Documentation: 11/10/24 21:23 . HPI Narrative: 73 year-old female presents to ED today by POV/ambulating with a chief complaint of R nare, nosebleed, on Eliquis with onset since 1630. Quality described as profuse nosebleeding withot relief, no radiation to dizziness, paleness, near syncope, bright red blood. Severity is described as severe for nosebleed. Palliating factors include pressure with kitchen towel. Provoking factors include nothing specific- denies heating with woodstove. Patient not anticoagulated. Related Data Home Medications ?Medication ?Instructions ?Recorded ?Confirmed blood-glucose meter (Accu-Chek #1 ea 03/17/20 11/12/24 Guide Glucose Meter) insulin syringe-needle U-100 1 mL #180 ea 12/06/20 11/12/24 31 gauge x 5/16 (BD Insulin Syringe Ultra-Fine) folic acid 1 mg tablet 1 mg PO DAILY 06/05/22 11/12/24 blood sugar diagnostic (Accu-Chek #300 strips 11/24/22 11/12/24 Guide test strips) blood-glucose meter,continuous #1 ea 01/02/23 11/12/24 (Dexcom G7 Microfilm Duplicating Unit Supervisor) magnesium 250 mg tablet 500 mg PO QHS 07/01/23 11/12/24 carvedilol 12.5 mg tablet 12.5 mg PO BID 12/23/23 11/12/24 atorvastatin 40 mg tablet 40 mg PO DAILY #90 tab-caps 01/13/24 11/12/24 chlorthalidone 50 mg tablet 100 mg (2 x 50 mg) PO DAILY #180 01/13/24 11/12/24 tabs duloxetine 30 mg capsule,delayed 30 mg PO DAILY #90 caps 01/13/24 11/12/24 release duloxetine 60 mg capsule,delayed 60 mg PO DAILY #90 caps 01/13/24 11/12/24 release furosemide 20 mg tablet 20 mg PO DAILY #90 tabs 01/13/24 11/12/24 metformin 500 mg tablet 500 mg PO BID #180 tabs 01/13/24 11/12/24 spironolactone 25 mg tablet 25 mg PO DAILY #90 tabs 01/13/24 11/12/24 (Aldactone) tirzepatide 2.5 mg/0.5 mL 2.5 mg (0.5 mL) subcut QWEEK 4 02/25/24 11/12/24 subcutaneous pen injector weeks #2 mL (Monserrat) potassium chloride 10 mEq 10 meq PO DAILY #90 tabs 03/11/24 11/12/24 tablet,extended release vibegron 75 mg tablet 75 mg PO DAILY #90 tabs 03/11/24 11/12/24 hydroxyurea 500 mg capsule 500 - 1,000 mg (1 - 2 x 500 mg) PO 04/08/24 11/12/24 DAILY #115 caps ibuprofen 600 mg tablet 600 mg PO TID PRN pain #90 tabs 06/24/24 11/12/24 aspirin 81 mg tablet,delayed 81 mg PO DAILY 08/06/24 11/12/24 release (Adult Aspirin Regimen) losartan 100 mg tablet 100 mg PO HS 09/06/24 11/12/24 ferrous sulfate 325 mg (65 mg 325 mg PO DAILY #30 tabs 09/07/24 11/12/24 iron) tablet ropinirole 8 mg tablet,extended 8 mg PO HS 09/17/24 11/12/24 release 24 hr apixaban 2.5 mg tablet 2.5 mg PO BID #180 tabs 10/06/24 11/12/24 blood-glucose sensor (Emotion Media G7 #1 ea 10/06/24 11/12/24 Sensor device) fentanyl 25 mcg/hr transdermal 1 patch transdermal Q72H #5 ea 10/06/24 11/12/24 patch cyclobenzaprine 5 mg tablet 5 mg PO QHS #7 tabs 10/09/24 11/12/24 amoxicillin 875 mg-potassium 1 tab PO BID #14 tabs 11/12/24 clavulanate 125 mg tablet insulin glargine 100 unit/mL (3 100 unit subcut QAM #90 mL 11/13/24 mL) subcutaneous pen (Lantus Solostar U-100 Insulin) lancets #300 ea 11/13/24 Previous Rx's ?Medication ?Instructions ?Recorded blood-glucose meter (Accu-Chek #1 ea 03/17/20 Guide Glucose Meter) insulin syringe-needle U-100 1 mL #180 ea 12/06/20 31 gauge x 5/16 (BD Insulin Syringe Ultra-Fine) blood sugar diagnostic (Accu-Chek #300 strips 11/24/22 Guide test strips) blood-glucose meter,continuous #1 ea 01/02/23 (Dexcom G7 Microfilm Duplicating Unit Supervisor) atorvastatin 40 mg tablet 40 mg PO DAILY #90 tab-caps 01/13/24 chlorthalidone 50 mg tablet 100 mg (2 x 50 mg) PO DAILY #180 01/13/24 tabs duloxetine 30 mg capsule,delayed 30 mg PO DAILY #90 caps 01/13/24 release duloxetine 60 mg capsule,delayed 60 mg PO DAILY #90 caps 01/13/24 release furosemide 20 mg tablet 20 mg PO DAILY #90 tabs 01/13/24 metformin 500 mg tablet 500 mg PO BID #180 tabs 01/13/24 spironolactone 25 mg tablet 25 mg PO DAILY #90 tabs 01/13/24 (Aldactone) tirzepatide 2.5 mg/0.5 mL 2.5 mg (0.5 mL) subcut QWEEK 4 02/25/24 subcutaneous pen injector weeks #2 mL (Mounjaro) potassium chloride 10 mEq 10 meq PO DAILY #90 tabs 03/11/24 tablet,extended release vibegron 75 mg tablet 75 mg PO DAILY #90 tabs 03/11/24 hydroxyurea 500 mg capsule 500 - 1,000 mg (1 - 2 x 500 mg) PO 04/08/24 DAILY #115 caps ibuprofen 600 mg tablet 600 mg PO TID PRN pain #90 tabs 06/24/24 ferrous sulfate 325 mg (65 mg 325 mg PO DAILY #30 tabs 09/07/24 iron) tablet apixaban 2.5 mg tablet 2.5 mg PO BID #180 tabs 10/06/24 blood-glucose sensor (Dexcom G7 #1 ea 10/06/24 Sensor device) fentanyl 25 mcg/hr transdermal 1 patch transdermal Q72H #5 ea 10/06/24 patch cyclobenzaprine 5 mg tablet 5 mg PO QHS #7 tabs 10/09/24 amoxicillin 875 mg-potassium 1 tab PO BID #14 tabs 11/12/24 clavulanate 125 mg tablet insulin glargine 100 unit/mL (3 100 unit subcut QAM #90 mL 11/13/24 mL) subcutaneous pen (Lantus Solostar U-100 Insulin) lancets #300 ea 11/13/24 Allergies Allergy/AdvReac Type Severity Reaction Status Date / Time clopidogrel Allergy Skin Rash Verified 11/12/24 11:30 oxybutynin AdvReac Intermediate Reflex Verified 11/12/24 11:30 propoxyphene AdvReac Nausea Verified 11/12/24 11:30 General Stated Complaint: Epistaxis KIMI: 4 Review of Systems All systems reviewed & are unremarkable except as noted in HPI and below Exam Narrative Exam Narrative: GENERAL APPEARANCE: Well-nourished, non-toxic, awake and alert, atraumatic, no acute distress. SKIN: Warm, pink, dry, intact, without rashes/lesions/ulcerations. HEAD: Normocephalic, atraumatic, normal hair distribution for gender/age. EYES: Normal conjunctiva, no exudates on lids/lashes. ENT: No circumoral cyanosis, no facial swelling,diffuse oozing of blood from the right nare, less so the left nare, blood is visualized dripping down the posterior oropharynx-all blood has ceased using dual Rhino Rockets NECK: Supple, trachea midline, painless cervical ROM. LUNGS/CHEST: Non-labored respirations, normal A/P diameter, symmetrical expansion, no chest wall deformity HEART (CV/PV): No peripheral edema, no JVD. ABDOMEN: Soft, non-distended, no guarding. MSK: Normal ROM, no swelling/deformity to bilateral UEs or LEs, moving all extremities without weakness, no cyanosis, spine midline without tenderness, normal curvature. NEURO: Mental Status AAOx4 - alert to person, place, time, events No facial droop, no forehead involvement. Motor: No focal weakness - strength 5/5 in bilateral UEs and LEs, proximal and distal, symmetric. Sensory: sensation intact to light touch globally. Gait normal: patient ambulated without ataxia into ED room. PSYCH: euthymic, cooperative, pleasant, appropriate speech Course Vital Signs Vital signs: Vital Signs Temperature 36.9 C 11/10/24 21:15 Pulse 81 11/10/24 21:15 Respiratory Rate 20 11/10/24 21:15 Blood Pressure 180/73 H 11/10/24 21:15 Pulse Oximetry 94 11/10/24 21:15 Temperature 36.9 C 11/10/24 21:15 Pulse 81 11/10/24 21:15 Respiratory Rate 20 11/10/24 21:15 Blood Pressure 180/73 H 11/10/24 21:15 Pulse Oximetry 94 11/10/24 21:15 Oxygen Delivery Method Room Air 11/10/24 21:15 Oxygen Flow Rate 0 11/10/24 21:15 Procedure Epistaxis Control Date of Procedure: 11/10/24 Time of Procedure: 22:00 Provider that performed the procedure: Jeronimo Houston Patient Consented: Verbally Time Out Performed: No Nostril: bilateral Nose prepped with: TXA Direct Inspection: unable to visualize Clots Removed by: blowing nose Cautery Used: none Device Inserted: Rapid rhino/4.5cm single lumen and Rapid rhino 7.5cm single lumen Medical Decision Making This dictation utilizes [id number] dictation software and may contain unedited grammatical errors. 73 year-old female presents to ED today by POV/ambulating with a chief complaint of R nare, nosebleed, on Eliquis with onset since 1629. Quality described as profuse nosebleeding withot relief, no radiation to dizziness, paleness, near syncope, bright red blood. Severity is described as severe for nosebleed. Palliating factors include pressure with kitchen towel. Provoking factors include nothing specific- denies heating with woodstove. Patients' medical history: Atrial fibrillation, hypertension, coronary artery disease, acute kidney injury, anemia, hypertension, hyperlipidemia, peripheral vascular disease. Family and social history: Noncontributory. Pertinent exam findings / vital signs include diffuse oozing of blood from the right nare, less so the left nare, blood is visualized dripping down the posterior oropharynx-all blood has ceased using dual Rhino Rockets Differential / pathologies of concern include epistaxis. Diagnostic studies of: -None. Interventions of: -Right nare packed with 7.5 Rhino Rocket, left nare packed with 4.5 Rhino Rocket with cessation of bleeding. ED Course/Assessment/Plan: 73-year-old female presents with significant epistaxis ongoing since 1629 today, is on Eliquis for A-fib, bleeding did not respond to 30 minutes of nasal clamp and did not respond to isolated right nare 7.5 Rhino Rocket, bleeding completely stopped with addition of a 4.5 left nare Rhino Rocket, counseled on the need for return for removal in about 5 days, the patient has a vacation planned for Saturday and states she will be getting them out prior to this. I did recommend that she possibly follow-up with ENT for cauterization should this become a chronic problem, had no labile vital signs and I do not expect the patient had dangerous bleeding at this time as she was completely asymptomatic. Findings not consistent with profound bleeding. Disposition of Epistaxis. Patient verbalized understanding of the plan and return to ED criteria and engaged in shared decision making. Medical Records Medical records reviewed: Yes I reviewed the patient's medical records. Quality:SDOH Health Related Social Needs: No Data to Display PFSH All Active Problems (Updated 11/12/24 @ 17:08 by Celeste Barrientos) Acute sinus infection (Acute) Epistaxis (Acute) Paroxysmal A-fib (Acute) dx in hospital 05/2022 Chest pain (Acute) Chronic pain (Chronic) CAD (coronary artery disease) (Chronic) KEVIN (acute kidney injury) (Acute) Acute confusion (Acute) Severe anemia (Acute) Multiple open wounds of right lower leg (Acute) Chronic pain of right lower extremity (Acute) Bilateral carpal tunnel syndrome (Acute) B/L ECTR: 06/24/2024 Ulnar neuropathy of both upper extremities (Acute) Renal lesion (Acute) Phlegm in throat (Acute) Hand numbness (Acute) Lipodermatosclerosis (Acute) Bladder leak (Acute) Weight gain (Acute) Rash (Acute) Change in bowel habits (Acute) 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 Harvey. Osteoarthritis of right hip (Chronic) Injection under fluoroscopy: 10/01/2019 RLS (restless legs syndrome) (Chronic) Primary osteoarthritis of right knee (Chronic) Chronic pain of left lower extremity (Chronic) await hand potter recommendations Polyp of colon (Acute 09/15/09) 09/25 COLONOSCOPY: ONE TUBULAR ADENOMA AND FOUR HYPERPLASTIC POLYPS. ALEX (obstructive sleep apnea) (Chronic 03/11/18) not on CPAP due to bedroom size Hyperlipidemia (Acute 01/14/14) History of tobacco use (Acute) Essential hypertension (Acute 08/18/13) Cataracts, both eyes (Acute) 11/11/15 OPTICAL EXPRESSIONS; EARLY CATARACTS B12 deficiency (Acute 04/08/15) Atherosclerosis of [place] coronary artery (Acute) Stent RCA 2006 Hyperlipidemia (Chronic) Hypertension (Chronic) CAD (coronary artery disease) (Chronic) S/P stent 2004 Peripheral vascular disease (Chronic) S/P right SFA antioplasty an sstenting, 2003. Left DVA to [place] popliteal bypass with [place], 2003. Bypass Left Stent Right 2005 left BKA 08/28 Medical History Venous insufficiency of leg Atrial fibrillation Fracture, femur closed, shaft (05/13/22) (L) Carpal tunnel syndrome (05/16/09) Hypertension History of tobacco abuse Quit 2004 Surgical History Status post amputation of lesser toe of right foot History of left hip replacement History of total replacement of left shoulder joint 02/08/23. -hb S/P peripheral artery angioplasty with stent placement Status post below-knee amputation of left lower extremity (2012) History of total right hip replacement (08/03/20) Hx of tubal ligation History of carpal tunnel release Bilaterally Family History Mother , 74 Neoplasm UTERINE Osteoporosis Uterine cancer Lung cancer Father Lung cancer Sister Neoplasm MELANOMA Breast cancer Sister No problems noted. Sister Skin cancer Brother No problems noted. Son Alcohol abuse Depression Maternal Grandfather Stomach cancer Paternal Grandfather No problems noted. Maternal Grandmother No problems noted. Paternal Grandmother No problems noted. Daughter Depression Social History Smoking/Tobacco Use Status: Former Tobacco Use tobacco type: cigarettes Quit Date: 09/16/04 Tobacco: How many years used: 37 Second Hand Exposure: Yes Smoking risk assessment performed?: Yes Alcohol Intake: current Alcohol Intake frequency: a few times a month Alcohol type: beer and hard liquor Drug use: Never Substance use type: does not use Details: Patient drank a alcoholic beverage yesterday (06/23) Caregiver/Support person: No Household members: none Housing: house Do you need help understanding health information?: Rarely current occupation: [employer] Pets and animals: Yes Pets and animals: cat(s) Sexually active: No Do you think of yourself as: straight/heterosexual Current gender identity: female What is your relationship status?: How often do you talk on the phone with friends or family?: three or more times per week How often do you get together with friends or relatives?: decline to answer How often do you attend anabaptist or rastafari services?: 1-3 times per year Do you belong to any clubs or organized social groups?: no Panel score (0-1 are the most socially isolated patients): 2 What type of physical activity do you participate in: none Carmelina/Bahai: Episcopal Special carmelina needs: No Seatbelt use: always Helmet use: Yes Helmet use: always Drive intox 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 tank 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: No Do you feel safe at home: Yes Do you feel safe in your relationship?: Yes Would you like helpful sources: No PAWSS Have you Been Recently Intoxicated or Drunk Within the Last 30 days?: No Have you Ever Experienced Previous Episodes of Alcohol Withdrawal?: No Have you ever Experienced Withdrawal Seizures?: No Have you ever Experienced Delirium Tremens(DT)s?: No Have you ever undergone Alcohol Rehabilitation Treatment (i.e, inpt ot outpatient treatment programs)?: No Have you ever Experienced Blackouts?: No Have you ever Combined Alcohol with other Downers within the last 90 days?: No Have you ever Combined Alcohol with any other Substance of Abuse during the last 90 days?: No Positive Blood Alcohol level on Presentation? [PCS.BAL]: No Evidence of Increased Autonomic Activity (i.e. HR>120, tremor, sweating, agitation, nausea)?: No Result: 0
== END 2024-11-10 23:26 | disposition home or self-care (01) ==
PROVIDERS: Emergency Provider Physician Assistant; PCP Family Medicine
DX: R04.0 Epistaxis (principal); I48.91 Unspecified atrial fibrillation; I10 Essential (primary) hypertension; E11.9 Type 2 diabetes mellitus without complications; Z79.4 Long term (current) use of insulin; Z79.84 Long term (current) use of oral hypoglycemic drugs; Z79.85 Long-term (current) use of injectable non-insulin antidiabetic drugs; Z87.891 Personal history of nicotine dependence
CPT/HCPCS: 30903; 99283

== ENCOUNTER 2024-11-12 10:37 | Emergency (ER) | payer MEDICARE, BC, SELFPAY ==
[2024-11-12 11:22] VITALS: BP 136/61; PULSE 80; RESP 20; TEMP 36.9; O2SAT 93
--- NOTE | 2024-11-12 12:49 | W.ED.GENAD ---
Discharge Plan Disposition Patient Disposition: Home Condition: Good Discharge Details Clinical Impression: Epistaxis, Acute sinus infection Primary Care Provider: Gui Graham ED Provider: Celeste Colon Home Meds and New Rx's Prescriptions: New amoxicillin-pot clavulanate 875-125 mg tablet 1 tab PO BID Qty: 14 0RF No Action carvedilol 12.5 mg tablet 12.5 mg PO BID Rx Instructions: must administer with a meal/food Mounjaro 2.5 mg/0.5 mL pen injector 2.5 mg subcut QWEEK MDD 2.5 28 Days Qty: 2 12RF Rx Instructions: Inject 2.5 mg subcutaneously once weekly as directed. insulin glargine [Basaglar KwikPen U-100 Insulin] 100 unit/mL (3 mL) insulin pen 100 unit subcut DAILY Qty: 90 3RF fentanyl 25 mcg/hr patch 72 hour 1 patch transdermal Q72H MDD 1 patch Qty: 5 0RF Patient Comments: doesn't have one on now (DME) Dexcom G7 Sensor Device See Rx Instructions .Route Qty: 1 11RF Rx Instructions: As directed apixaban 2.5 mg tablet 2.5 mg PO BID Qty: 180 3RF cyclobenzaprine 5 mg tablet 5 mg PO QHS Qty: 7 0RF (DME) Dexcom G7 Chief Security And Safety Officer Misc See Rx Instructions .Route Qty: 1 0RF Rx Instructions: As directed vibegron 75 mg tablet 75 mg PO DAILY Qty: 90 3RF Rx Instructions: per [facility]ne, for urge incontinence potassium chloride 10 mEq tablet extended release 10 meq PO DAILY Qty: 90 3RF (DME) blood-glucose meter [Accu-Chek Guide Glucose Meter] Misc See Rx Instructions .ROUTE .MEDSUPPLY Qty: 1 0RF Rx Instructions: test as directed (DME) insulin syringe-needle U-100 [BD Insulin Syringe Ultra-Fine] 1 mL 31 gauge x 5/16 syringe See Rx Instructions .ROUTE .MEDSUPPLY Qty: 180 3RF Rx Instructions: 1 injection sq BID folic acid 1 mg tablet 1 mg PO DAILY (DME) Accu-Chek Guide test strips Strip 1 ea Miscellaneous DAILY Qty: 300 3RF Rx Instructions: test 3 x day (DME) lancets Misc 1 ea Miscellaneous DAILY Qty: 300 3RF Rx Instructions: test 3 x /day magnesium 250 mg tablet 500 mg PO QHS atorvastatin 40 mg tablet 40 mg PO DAILY Qty: 90 3RF chlorthalidone 50 mg tablet 100 mg PO DAILY Qty: 180 3RF duloxetine 60 mg capsule,delayed release(DR/EC) 60 mg PO DAILY Qty: 90 3RF duloxetine 30 mg capsule,delayed release(DR/EC) 30 mg PO DAILY Qty: 90 3RF Rx Instructions: take with a 60 mg capsule to equal 90 mg/day furosemide 20 mg tablet 20 mg PO DAILY Qty: 90 3RF metformin 500 mg tablet 500 mg PO BID Qty: 180 3RF spironolactone [Aldactone] 25 mg tablet 25 mg PO DAILY Qty: 90 3RF hydroxyurea 500 mg capsule 500 - 1,000 mg PO DAILY Qty: 115 3RF Rx Instructions: 500 mg/day except take 1000 mg Sat and Saturday aspirin [Adult Aspirin Regimen] 81 mg tablet,delayed release (DR/EC) 81 mg PO DAILY insulin glargine-yfgn [Semglee(insulin glarg-yfgn)Pen] 100 unit/mL (3 mL) insulin pen 100 unit subcut DAILY Qty: 90 3RF ibuprofen 600 mg tablet 600 mg PO TID PRN (Reason: pain) Qty: 90 0RF losartan 100 mg tablet 100 mg PO HS ferrous sulfate 325 mg (65 mg iron) Tablet 325 mg PO DAILY Qty: 30 0RF ropinirole 8 mg tablet extended release 24 hr 8 mg PO HS Discharge Instructions Additional Instructions: Please call your primary care provider to schedule a f/u appt. You are being treated for a sinus infection; please take the full course of antibiotics as prescribed. I recommend that you take this medication with probiotics such as Culturelle or activia yogurt to prevent antibiotic associated diarrhea. Do not blow or pick your nose for at least 2 days after the rhino rocket removal. If you experience any new bleeding, please apply firm pressure to both nares for at least 5 minutes (no peeking!) Return to emergency care if you develop new headaches, vision changes, facial drooping, weakness, fevers/chills, uncontrollable nosebleeds, or if you are very worried and need to be rechecked again immediately. Referrals: Gui Graham MD [Primary Care Provider] - Discharge Data Discharge Date/Time-TO BE ENTERED AT DEPARTURE: 11/12/24 17:40 HPI General Date/Time Provider Initiated Documentation: 11/12/24 10:54. HPI Narrative: Mary is a 73 year old female who presents to the emergency department today for evaluation of fatigue/weakness. She reports that she started with a spontaneous nosebleed 2 days ago after returning home from a trip to [place]. She came into the emergency department and had bilateral Rhino Rocket's placed. She reports that she has felt a sore throat, says that she can certainly be dripping back there, but has not tasted blood. Denies fever/chills, dizziness, chest pain, shortness of breath, blood in stool/black/tarry stools, or other bleeding. She is anticoagulated with Eliquis and aspirin.. Past medical history is significant for CAD, thrombocytopenia, T2DM, HTN, HLD, peripheral vascular disease Physical exam reassuring. Emilia is alert and oriented, in no acute distress. Easy work of breathing, lung sounds to the right heart sounds. Rhino Rocket are in place bilaterally. No Bleeding noted in posterior oropharynx. Mild conjunctival pallor noted. Easy work of breathing, lung sounds clear bilaterally. Normal heart sounds. Cranial nerves II through XII intact as tested. 5 out of 5 muscle strength upper and lower extremities. D/dx includes but is not limited to: Occult infection such as pneumonia or UTI, anemia from blood loss, Rhino Rocket associated infection I independently interpreted the following tests: CBC notable for leukocytosis, white cell count 19.89. Mild anemia noted, H&H 9.6 and 31.8, unchanged from previous. Coags and CMP reassuring. UA not consistent with infection. No acute abnormality noted on chest x-ray. While in the emergency department, Rhino Rocket's were removed. Purulent drainage was noted bilaterally. There was a scant amount of bleeding, this was able to be controlled with atomized TXA, Afrin, silver nitrate, and pressure. Concern for sinus infection associated with nasal packing. No red flags concerning for deep space infection or other serious complications requiring emergent diagnostic imaging. Will treat with Augmentin, first dose given in ED. Reviewed discharge instructions with patient, including symptomatic management, management of nosebleeds, and red flags indicating need for return to emergency care. She voices agreement with plan of care Related Data Home Medications ?Medication ?Instructions ?Recorded ?Confirmed blood-glucose meter (Accu-Chek #1 ea 03/17/20 11/12/24 Guide Glucose Meter) insulin syringe-needle U-100 1 mL #180 ea 12/06/20 11/12/24 31 gauge x 5/16 (BD Insulin Syringe Ultra-Fine) folic acid 1 mg tablet 1 mg PO DAILY 06/05/22 11/12/24 blood sugar diagnostic (Accu-Chek #300 strips 11/24/22 11/12/24 Guide test strips) lancets #300 ea 11/24/22 11/12/24 blood-glucose meter,continuous #1 ea 01/02/23 11/12/24 ([employer] G7 Chief Security And Safety Officer) magnesium 250 mg tablet 500 mg PO QHS 07/01/23 11/12/24 carvedilol 12.5 mg tablet 12.5 mg PO BID 12/23/23 11/12/24 atorvastatin 40 mg tablet 40 mg PO DAILY #90 tab-caps 01/13/24 11/12/24 chlorthalidone 50 mg tablet 100 mg (2 x 50 mg) PO DAILY #180 01/13/24 11/12/24 tabs duloxetine 30 mg capsule,delayed 30 mg PO DAILY #90 caps 01/13/24 11/12/24 release duloxetine 60 mg capsule,delayed 60 mg PO DAILY #90 caps 01/13/24 11/12/24 release furosemide 20 mg tablet 20 mg PO DAILY #90 tabs 01/13/24 11/12/24 metformin 500 mg tablet 500 mg PO BID #180 tabs 01/13/24 11/12/24 spironolactone 25 mg tablet 25 mg PO DAILY #90 tabs 01/13/24 11/12/24 (Aldactone) tirzepatide 2.5 mg/0.5 mL 2.5 mg (0.5 mL) subcut QWEEK 4 02/25/24 11/12/24 subcutaneous pen injector weeks #2 mL (Mounjaro) potassium chloride 10 mEq 10 meq PO DAILY #90 tabs 03/11/24 11/12/24 tablet,extended release vibegron 75 mg tablet 75 mg PO DAILY #90 tabs 03/11/24 11/12/24 hydroxyurea 500 mg capsule 500 - 1,000 mg (1 - 2 x 500 mg) PO 04/08/24 11/12/24 DAILY #115 caps ibuprofen 600 mg tablet 600 mg PO TID PRN pain #90 tabs 06/24/24 11/12/24 aspirin 81 mg tablet,delayed 81 mg PO DAILY 08/06/24 11/12/24 release (Adult Aspirin Regimen) losartan 100 mg tablet 100 mg PO HS 09/06/24 11/12/24 ferrous sulfate 325 mg (65 mg 325 mg PO DAILY #30 tabs 09/07/24 11/12/24 iron) tablet ropinirole 8 mg tablet,extended 8 mg PO HS 09/17/24 11/12/24 release 24 hr apixaban 2.5 mg tablet 2.5 mg PO BID #180 tabs 10/06/24 11/12/24 blood-glucose sensor (Dexcom G7 #1 ea 10/06/24 11/12/24 Sensor device) fentanyl 25 mcg/hr transdermal 1 patch transdermal Q72H #5 ea 10/06/24 11/12/24 patch insulin glargine 100 unit/mL (3 100 unit subcut DAILY #90 mL 10/06/24 11/12/24 mL) subcutaneous pen (Basaglar KwikPen U-100 Insulin) cyclobenzaprine 5 mg tablet 5 mg PO QHS #7 tabs 10/09/24 11/12/24 insulin glargine-yfgn 100 unit/mL 100 unit subcut DAILY #90 mL 10/24/24 11/12/24 (3 mL) subcutaneous pen (Semglee (insulin glargine-yfgn) Pen) amoxicillin 875 mg-potassium 1 tab PO BID #14 tabs 11/12/24 clavulanate 125 mg tablet Previous Rx's ?Medication ?Instructions ?Recorded blood-glucose meter (Accu-Chek #1 ea 03/17/20 Guide Glucose Meter) insulin syringe-needle U-100 1 mL #180 ea 12/06/20 31 gauge x 5/16 (BD Insulin Syringe Ultra-Fine) blood sugar diagnostic (Accu-Chek #300 strips 11/24/22 Guide test strips) lancets #300 ea 11/24/22 blood-glucose meter,continuous #1 ea 01/02/23 (Dexcom G7 Chief Security And Safety Officer) atorvastatin 40 mg tablet 40 mg PO DAILY #90 tab-caps 01/13/24 chlorthalidone 50 mg tablet 100 mg (2 x 50 mg) PO DAILY #180 01/13/24 tabs duloxetine 30 mg capsule,delayed 30 mg PO DAILY #90 caps 01/13/24 release duloxetine 60 mg capsule,delayed 60 mg PO DAILY #90 caps 01/13/24 release furosemide 20 mg tablet 20 mg PO DAILY #90 tabs 01/13/24 metformin 500 mg tablet 500 mg PO BID #180 tabs 01/13/24 spironolactone 25 mg tablet 25 mg PO DAILY #90 tabs 01/13/24 (Aldactone) tirzepatide 2.5 mg/0.5 mL 2.5 mg (0.5 mL) subcut QWEEK 4 02/25/24 subcutaneous pen injector weeks #2 mL (Mounjaro) potassium chloride 10 mEq 10 meq PO DAILY #90 tabs 03/11/24 tablet,extended release vibegron 75 mg tablet 75 mg PO DAILY #90 tabs 03/11/24 hydroxyurea 500 mg capsule 500 - 1,000 mg (1 - 2 x 500 mg) PO 04/08/24 DAILY #115 caps ibuprofen 600 mg tablet 600 mg PO TID PRN pain #90 tabs 06/24/24 ferrous sulfate 325 mg (65 mg 325 mg PO DAILY #30 tabs 09/07/24 iron) tablet apixaban 2.5 mg tablet 2.5 mg PO BID #180 tabs 10/06/24 blood-glucose sensor ([employer] G7 #1 ea 10/06/24 Sensor device) fentanyl 25 mcg/hr transdermal 1 patch transdermal Q72H #5 ea 10/06/24 patch insulin glargine 100 unit/mL (3 100 unit subcut DAILY #90 mL 10/06/24 mL) subcutaneous pen (Basaglar KwikPen U-100 Insulin) cyclobenzaprine 5 mg tablet 5 mg PO QHS #7 tabs 10/09/24 insulin glargine-yfgn 100 unit/mL 100 unit subcut DAILY #90 mL 10/24/24 (3 mL) subcutaneous pen (Semglee (insulin glargine-yfgn) Pen) amoxicillin 875 mg-potassium 1 tab PO BID #14 tabs 11/12/24 clavulanate 125 mg tablet Allergies Allergy/AdvReac Type Severity Reaction Status Date / Time clopidogrel Allergy Skin Rash Verified 11/12/24 11:30 oxybutynin AdvReac Intermediate Reflex Verified 11/12/24 11:30 propoxyphene AdvReac Nausea Verified 11/12/24 11:30 General Stated Complaint: Recheck KIMI: 4 Review of Systems Narrative: See HPI Exam Const General: cooperative, healthy appearing, comfortable, no acute distress, well developed and well groomed Nutritional Appearance: average body habitus Orientation: alert and oriented x3 HENMD Head: normal to inspection and atraumatic Ears: hearing grossly normal bilaterally General nose exam: external nose normal, epistaxis (scant bleeding from R nare after packing removal, small lesion noted) and other (nasal packing in place) Face and sinus: normal facial exam Mouth: oral mucosae normal Throat: posterior oropharynx normal (scant bloody mucus drainage from upper airway) Neck Neck: normal visual inspection and full ROM Resp Effort & Inspection: normal respiratory effort and able to speak in complete sentences Auscultation: clear to auscultation bilaterally Cardio Rate: regular rate Rhythm: regular rhythm Neuro General: patient alert, patient oriented x3, tone normal and moves all extremities Cranial Nerves: CN's II-XI intact bilaterally, PERRL, EOM intact bilaterally, no nystagmus and facial strength normal Cognition: normal cognition Speech: speech normal Motor: muscle tone normal throughout and strength 5/5 throughout Course Vital Signs Vital signs: Vital Signs Temperature 36.9 C 11/12/24 11:22 Pulse 80 11/12/24 11:22 Respiratory Rate 20 11/12/24 11:22 Blood Pressure 136/61 11/12/24 11:22 Pulse Oximetry 93 11/12/24 11:22 Temperature 36.9 C 11/12/24 11:22 Pulse 80 11/12/24 11:22 Respiratory Rate 20 11/12/24 11:22 Blood Pressure 136/61 11/12/24 11:22 Blood Pressure Position Sitting 11/12/24 11:22 Pulse Oximetry 93 11/12/24 11:22 Oxygen Delivery Method Room Air 11/12/24 11:22 Oxygen Flow Rate 0 11/12/24 11:22 Medical Decision Making Imaging Data Radiologic Study: Radiologist's impression: Exam(s) XR CHEST 2V PA LATERAL EXAM: XR CHEST 2V PA LATERAL CLINICAL HISTORY: anemia, fatigue, elevated WBC TECHNIQUE: 2D digital imaging was performed of the chest. Two images were obtained. PA and lateral views were obtained. COMPARISON: CR,XR XR CHEST 2V PA LATERAL from 09/06/2024 CR XR CHEST 2V PA LATERAL from 09/17/2024 FINDINGS: MEDIASTINUM: Normal. HEART: Normal. PULMONARY VASCULATURE: Normal. LUNGS: No focal consolidating infiltrates are present. PLEURAL SPACE: No pleural effusion or pneumothorax. BONE:Within normal limits for the patient's age. There is again seen a left reverse total shoulder arthroplasty. There are old healed right rib fractures again seen. OTHER FINDINGS:Normal. IMPRESSION: No acute pulmonary findings. Quality:SDOH Health Related Social Needs: No Data to Display PFSH All Active Problems (Updated 11/12/24 @ 17:08 by Celeste Barrientos) Acute sinus infection (Acute) Epistaxis (Acute) Paroxysmal A-fib (Acute) dx in hospital 05/2022 Chest pain (Acute) Chronic pain (Chronic) CAD (coronary artery disease) (Chronic) KEVIN (acute kidney injury) (Acute) Acute confusion (Acute) Severe anemia (Acute) Multiple open wounds of right lower leg (Acute) Chronic pain of right lower extremity (Acute) Bilateral carpal tunnel syndrome (Acute) B/L ECTR: 06/24/2024 Ulnar neuropathy of both upper extremities (Acute) Renal lesion (Acute) Phlegm in throat (Acute) Hand numbness (Acute) Lipodermatosclerosis (Acute) Bladder leak (Acute) Weight gain (Acute) Rash (Acute) Change in bowel habits (Acute) 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 Harvey. Osteoarthritis of right hip (Chronic) Injection under fluoroscopy: 10/01/2019 RLS (restless legs syndrome) (Chronic) Primary osteoarthritis of right knee (Chronic) Chronic pain of left lower extremity (Chronic) await talent analyst recommendations Polyp of colon (Acute 09/15/09) 09/25 COLONOSCOPY: ONE TUBULAR ADENOMA AND FOUR HYPERPLASTIC POLYPS. ALEX (obstructive sleep apnea) (Chronic 03/11/18) not on CPAP due to bedroom size Hyperlipidemia (Acute 01/14/14) History of tobacco use (Acute) Essential hypertension (Acute 08/18/13) Cataracts, both eyes (Acute) 11/11/15 OPTICAL EXPRESSIONS; EARLY CATARACTS B12 deficiency (Acute 04/08/15) Atherosclerosis of [place] coronary artery (Acute) Stent RCA 2006 Hyperlipidemia (Chronic) Hypertension (Chronic) CAD (coronary artery disease) (Chronic) S/P stent 2004 Peripheral vascular disease (Chronic) S/P right SFA antioplasty an sstenting, 2003. Left DVA to [place] popliteal bypass with Fackler-Ruben, 2003. Bypass Left Stent Right 2005 left BKA 08/28 Medical History Venous insufficiency of leg Atrial fibrillation Fracture, femur closed, shaft (05/13/22) (L) Carpal tunnel syndrome (05/16/09) Hypertension History of tobacco abuse Quit 2004 Surgical History Status post amputation of lesser toe of right foot History of left hip replacement History of total replacement of left shoulder joint 02/08/23. -hb S/P peripheral artery angioplasty with stent placement Status post below-knee amputation of left lower extremity (2012) History of total right hip replacement (08/03/20) Hx of tubal ligation History of carpal tunnel release Bilaterally Family History Mother , 74 Neoplasm UTERINE Osteoporosis Uterine cancer Lung cancer Father Lung cancer Sister Neoplasm MELANOMA Breast cancer Sister No problems noted. Sister Skin cancer Brother No problems noted. Son Alcohol abuse Depression Maternal Grandfather Stomach cancer Paternal Grandfather No problems noted. Maternal Grandmother No problems noted. Paternal Grandmother No problems noted. Daughter Depression Social History Smoking/Tobacco Use Status: Former Tobacco Use tobacco type: cigarettes Quit Date: 09/16/04 Tobacco: How many years used: 37 Second Hand Exposure: Yes Smoking risk assessment performed?: Yes Alcohol Intake: current Alcohol Intake frequency: a few times a month Alcohol type: beer and hard liquor Drug use: Never Substance use type: does not use Details: Patient drank a alcoholic beverage yesterday (06/23) Caregiver/Support person: No Household members: none Housing: house Do you need help understanding health information?: Rarely current occupation: [employer] Pets and animals: Yes Pets and animals: cat(s) Sexually active: No Do you think of yourself as: straight/heterosexual Current gender identity: female What is your relationship status?: How often do you talk on the phone with friends or family?: three or more times per week How often do you get together with friends or relatives?: decline to answer How often do you attend confucianism or restoration services?: 1-3 times per year Do you belong to any clubs or organized social groups?: no Panel score (0-1 are the most socially isolated patients): 2 What type of physical activity do you participate in: none Carmelina/Restorationist: Confucianism Special carmelina needs: No Seatbelt use: always Helmet use: Yes Helmet use: always Drive intox 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 explosives 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: No Do you feel safe at home: Yes Do you feel safe in your relationship?: Yes Would you like helpful sources: No
[2024-11-12 13:57] LABS: Abs Immature Grans 0.48 10^3/uL (0.0-0.06); Absolute Basophil Count 0.08 10^3/uL (0.0-0.2); Absolute Lymphocyte Count 1.03 10^3/uL (1.2-3.4); Absolute Neutrophil Count 17.17 10^3/uL (1.2-6.7); Basophils % 0.4 %; Eosinophils % 0.2 %; HCT 31.8 % (36.0-46.0); HGB 9.6 g/dL (11.2-15.7); Immature Grans % 2.4 %; Lymphocytes % 5.2 %; MCH 31.3 pg (27.0-33.0); MCHC 30.2 % (32.0-36.0); MCV 104 fL (80-95); MPV 9.9 fL (8.0-11.0); Monocytes % 5.5 %; Neutrophils % 86.3 %; Platelet Count 474 10^3/uL (130-400); RBC 3.07 10^6/uL (3.93-5.22); RDW-SD 75.6 fL; WBC 19.89 10^3/uL (4.4-10.8)
[2024-11-12 13:59] LABS: Absolute Eosinophil Count 0.04 10^3/uL (0.0-0.7); Absolute Monocyte Count 1.09 10^3/uL (0.1-0.8)
--- NOTE | 2024-11-12 14:00 | DI.RAD_ITS ---
Exam(s) XR CHEST 2V PA LATERAL EXAM: XR CHEST 2V PA LATERAL CLINICAL HISTORY: anemia, fatigue, elevated WBC TECHNIQUE: 2D digital imaging was performed of the chest. Two images were obtained. PA and lateral views were obtained. COMPARISON: CR,XR XR CHEST 2V PA LATERAL from 09/06/2024 CR XR CHEST 2V PA LATERAL from 09/17/2024 FINDINGS: MEDIASTINUM: Normal. HEART: Normal. PULMONARY VASCULATURE: Normal. LUNGS: No focal consolidating infiltrates are present. PLEURAL SPACE: No pleural effusion or pneumothorax. BONE:Within normal limits for the patient's age. There is again seen a left reverse total shoulder a rthroplasty. There are old healed right rib fractures again seen. OTHER FINDINGS:Normal. IMPRESSION: No acute pulmonary findings. DATA REPOSITORY: RADIATION DOSE DELIVERED:
[2024-11-12 14:17] LABS: ALT 12 U/L (14-59); AST 13 U/L (15-37); Albumin 3.5 g/dL (3.4-5.0); Alkaline Phosphatase 89 U/L (46-116); Anion Gap 7.1 mmol/L (3-11); BUN 40 mg/dL (7-18); Bilirubin, Total 0.44 mg/dL (0.2-1.0); CO2 25.9 mmol/L (21.0-32.0); CREATININE 1.6 mg/dL (0.55-1.02); Calcium 9.8 mg/dL (8.5-10.1); Chloride 104 mmol/L (98-107); Estimated GFR 33.84 (mL/min/1.73m2); Glucose 225 mg/dL (74-106); Potassium 5.2 mmol/L (3.5-5.1); Sodium 137 mmol/L (136-145); Total Protein 7.8 g/dL (6.4-8.2)
[2024-11-12 14:29] LABS: INR 1.1 (0.9-1.1); PTT Activated 29.5 sec (20.6-30.2); Prothrombin Time 11.3 sec (9.1-11.1)
[2024-11-12 15:18] LABS: Bilirubin Negative (Negative); Blood Negative (Negative); Clarity Clear (Clear); Glucose Negative (Negative); Ketones Negative (Negative); Leukocyte Esterase Negative (Negative); Nitrite Negative (Negative); Specific Gravity 1.015 (1.005-1.025); Urobilinogen 0.2 mg/dL (Up to 0.2); pH 5.5 (5-8)
[2024-11-12] MEDS: Amoxicillin 875/Clav. 125 TAB PO (17:31)
[2024-11-12 17:40] VITALS: BP 138/84; PULSE 84; RESP 16; TEMP 36.9; O2SAT 98
[2024-11-12] MEDS: Oxymetazolone 0.05% SPRAY 15 ML BTL (17:43)
[2024-11-12] MEDS: Tranexamic Acid 1,000 MG/10 ML VIAL 1000 MG (17:43)
[2024-11-12] MEDS: Silver Nitrate Stick 1 EACH (17:43)
== END 2024-11-12 17:40 | disposition home or self-care (01) ==
PROVIDERS: Student in an Organized Health Care Education/Training Program; Emergency Provider Nurse Practitioner Family; PCP Family Medicine
DX: R04.0 Epistaxis (principal); J01.90 Acute sinusitis, unspecified; I10 Essential (primary) hypertension; E78.5 Hyperlipidemia, unspecified; E11.9 Type 2 diabetes mellitus without complications; I25.10 Atherosclerotic heart disease of native coronary artery without angina pectoris; Z95.5 Presence of coronary angioplasty implant and graft; Z79.4 Long term (current) use of insulin; Z79.84 Long term (current) use of oral hypoglycemic drugs; Z79.85 Long-term (current) use of injectable non-insulin antidiabetic drugs; Z79.82 Long term (current) use of aspirin; Z79.01 Long term (current) use of anticoagulants; Z87.891 Personal history of nicotine dependence
CPT/HCPCS: 80053; 99283; 71046; 81003; 85025; 85610; 85730

== ENCOUNTER 2024-11-24 15:45 | Emergency (ER) | payer MEDICARE, BC, SELFPAY ==
[2024-11-24] VITALS (14 sets, daily range): BP systolic 136–188; BP diastolic 31–93; PULSE 78–100; RESP 16; TEMP 36.4–36.9; O2SAT 96–100
--- NOTE | 2024-11-24 16:00 | DI.RAD_ITS ---
Exam(s) XR NASAL BONES EXAM: XR NASAL BONES CLINICAL HISTORY: Injury yesterday, epistaxsis. TECHNIQUE: 2D digital imaging was performed. COMPARISON: No exams were available for comparison FINDINGS: Limited study/suboptimal technique as apparently patient was not able to be completely cooperative. There is no depressed nasal bone fracture identified on these images. IMPRESSION: As above. No depressed nasal fracture evident. DATA REPOSITORY: RADIATION DOSE DELIVERED:
--- NOTE | 2024-11-24 16:14 | W.ED.GENAD ---
Discharge Plan Disposition Patient Disposition: Home Condition: Stable Discharge Details Clinical Impression: Epistaxis, Anemia Primary Care Provider: Gui Graham ED Provider: Chely Fernandez [place] Meds and New Rx's Prescriptions: Continued carvedilol 12.5 mg tablet 12.5 mg PO BID Rx Instructions: must administer with a meal/food folic acid 1 mg tablet 1 mg PO DAILY magnesium 250 mg tablet 500 mg PO QHS atorvastatin 40 mg tablet 40 mg PO DAILY Qty: 90 3RF chlorthalidone 50 mg tablet 100 mg PO DAILY Qty: 180 3RF duloxetine 30 mg capsule,delayed release(DR/EC) 30 mg PO DAILY Qty: 90 3RF Rx Instructions: take with a 60 mg capsule to equal 90 mg/day furosemide 20 mg tablet 20 mg PO DAILY Qty: 90 3RF metformin 500 mg tablet 500 mg PO BID Qty: 180 3RF hydroxyurea 500 mg capsule 500 - 1,000 mg PO DAILY Qty: 115 3RF Rx Instructions: 500 mg/day except take 1000 mg Sat and Saturday insulin glargine [Lantus Solostar U-100 Insulin] 100 unit/mL (3 mL) insulin pen 100 unit subcut QAM Qty: 90 3RF losartan 100 mg tablet 100 mg PO HS ferrous sulfate 325 mg (65 mg iron) Tablet 325 mg PO DAILY Qty: 30 0RF Held apixaban 2.5 mg tablet 2.5 mg PO BID Qty: 180 3RF Hold Instructions: Resume on 11/26/24. Hold for next 24 hours aspirin [Adult Aspirin Regimen] 81 mg tablet,delayed release (DR/EC) 81 mg PO DAILY Hold Instructions: Resume on 11/26/24. Hold for next 24 hours No Action Mounjaro 2.5 mg/0.5 mL pen injector 2.5 mg subcut QWEEK MDD 2.5 28 Days Qty: 2 12RF Rx Instructions: Inject 2.5 mg subcutaneously once weekly as directed. fentanyl 25 mcg/hr patch 72 hour 1 patch transdermal Q72H MDD 1 patch Qty: 5 0RF Patient Comments: doesn't have one on now (DME) Dexcom G7 Sensor Device See Rx Instructions .Route Qty: 1 11RF Rx Instructions: As directed cyclobenzaprine 5 mg tablet 5 mg PO QHS Qty: 7 0RF (DME) Dexcom G7 Rolloff Truck Driver Misc See Rx Instructions .Route Qty: 1 0RF Rx Instructions: As directed vibegron 75 mg tablet 75 mg PO DAILY Qty: 90 3RF Rx Instructions: per [facility] gyne, for urge incontinence potassium chloride 10 mEq tablet extended release 10 meq PO DAILY Qty: 90 3RF (DME) blood-glucose meter [Accu-Chek Guide Glucose Meter] Misc See Rx Instructions .ROUTE .MEDSUPPLY Qty: 1 0RF Rx Instructions: test as directed (DME) insulin syringe-needle U-100 [BD Insulin Syringe Ultra-Fine] 1 mL 31 gauge x 5/16 syringe See Rx Instructions .ROUTE .MEDSUPPLY Qty: 180 3RF Rx Instructions: 1 injection sq BID (DME) Accu-Chek Guide test strips Strip 1 ea Miscellaneous DAILY Qty: 300 3RF Rx Instructions: test 3 x day duloxetine 60 mg capsule,delayed release(DR/EC) 60 mg PO DAILY Qty: 90 3RF spironolactone [Aldactone] 25 mg tablet 25 mg PO DAILY Qty: 90 3RF (DME) lancets Misc 1 ea Miscellaneous DAILY Qty: 300 3RF Rx Instructions: test 3 x /day ibuprofen 600 mg tablet 600 mg PO TID PRN (Reason: pain) Qty: 90 0RF amoxicillin-pot clavulanate 875-125 mg tablet 1 tab PO BID Qty: 14 0RF ropinirole 8 mg tablet extended release 24 hr 8 mg PO HS Discharge Instructions Instructions: Nosebleeds ED Additional Instructions: Please hold your apixaban and aspirin for the next 24 hours. You were given 1 unit of packed red blood cells here in the emergency department. If your nose begins to bleed again please apply pressure with the nasal clip for approximately 15 minutes if it does not stop please return to the ER. Please follow-up with ear nose and throat within the next week. Do not blow your nose. Stay away from anything very hot or very cold as this will cause her nose to bleed again. You may continue to use the Travon-Synephrine spray 1 spray in each nostril once a day. Follow up with ENT/primary care provider in 3-5 days. Return to ED sooner if any worsening bleeding, lightheadedness or concerns. Thank you for allowing us to care for you today. Referrals: Miguel Moreno MD [ [facility] STAFF PHYSICIAN] - 3 days Gui Graham MD [Primary Care Provider] - 1 week HPI General Mode of arrival: wheelchair. Date/Time Provider Initiated Documentation: 11/24/24 15:49. Limitations to Documentation: no limitations. Information obtained by: patient, RN notes reviewed and old records reviewed. HPI Narrative: 73-year-old female presents to the ER with chief complaint of epistaxis since 5:30 PM yesterday evening. Patient reports that she was standing, lost her balance get her nose on the counter couple minutes later her nose began to bleed. Is mostly bleeding from the left nare. She does take apixaban for atrial fibrillation. She reports that she has been blowing her nose and has had clots and is unable to get it to stop. She was seen here the end of October and had bilateral nasal packing. She has no ecchymosis or contusion noted. She does have some mild amount of tenderness to the distal bridge of her nose with palpation. No obvious deformity. Denies any headache or neck pain. She does report feeling tired and lightheaded. She does have a small ooze noted from the left nare. 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 Related Data Home Medications ?Medication ?Instructions ?Recorded ?Confirmed blood-glucose meter (Accu-Chek #1 ea 03/17/20 11/24/24 Guide Glucose Meter) insulin syringe-needle U-100 1 mL #180 ea 12/06/20 11/24/24 31 gauge x 5/16 (BD Insulin Syringe Ultra-Fine) folic acid 1 mg tablet 1 mg PO DAILY 06/05/22 11/24/24 blood sugar diagnostic (Accu-Chek #300 strips 11/24/22 11/24/24 Guide test strips) blood-glucose meter,continuous #1 ea 01/02/23 11/24/24 (Applied NanoWorks G7 Rolloff Truck Driver) magnesium 250 mg tablet 500 mg PO QHS 07/01/23 11/24/24 carvedilol 12.5 mg tablet 12.5 mg PO BID 12/23/23 11/24/24 atorvastatin 40 mg tablet 40 mg PO DAILY #90 tab-caps 01/13/24 11/24/24 chlorthalidone 50 mg tablet 100 mg (2 x 50 mg) PO DAILY #180 01/13/24 11/24/24 tabs duloxetine 30 mg capsule,delayed 30 mg PO DAILY #90 caps 01/13/24 11/24/24 release duloxetine 60 mg capsule,delayed 60 mg PO DAILY #90 caps 01/13/24 11/24/24 release furosemide 20 mg tablet 20 mg PO DAILY #90 tabs 01/13/24 11/24/24 metformin 500 mg tablet 500 mg PO BID #180 tabs 01/13/24 11/24/24 spironolactone 25 mg tablet 25 mg PO DAILY #90 tabs 01/13/24 11/24/24 (Aldactone) tirzepatide 2.5 mg/0.5 mL 2.5 mg (0.5 mL) subcut QWEEK 4 02/25/24 11/24/24 subcutaneous pen injector weeks #2 mL (Mounjaro) potassium chloride 10 mEq 10 meq PO DAILY #90 tabs 03/11/24 11/24/24 tablet,extended release vibegron 75 mg tablet 75 mg PO DAILY #90 tabs 03/11/24 11/24/24 hydroxyurea 500 mg capsule 500 - 1,000 mg (1 - 2 x 500 mg) PO 04/08/24 11/24/24 DAILY #115 caps ibuprofen 600 mg tablet 600 mg PO TID PRN pain #90 tabs 06/24/24 11/24/24 aspirin 81 mg tablet,delayed 81 mg PO DAILY 08/06/24 11/24/24 release (Adult Aspirin Regimen) losartan 100 mg tablet 100 mg PO HS 09/06/24 11/24/24 ferrous sulfate 325 mg (65 mg 325 mg PO DAILY #30 tabs 09/07/24 11/24/24 iron) tablet ropinirole 8 mg tablet,extended 8 mg PO HS 09/17/24 11/24/24 release 24 hr apixaban 2.5 mg tablet 2.5 mg PO BID #180 tabs 10/06/24 11/24/24 blood-glucose sensor (Applied NanoWorks G7 #1 ea 10/06/24 11/24/24 Sensor device) fentanyl 25 mcg/hr transdermal 1 patch transdermal Q72H #5 ea 10/06/24 11/24/24 patch cyclobenzaprine 5 mg tablet 5 mg PO QHS #7 tabs 10/09/24 11/24/24 amoxicillin 875 mg-potassium 1 tab PO BID #14 tabs 11/12/24 11/24/24 clavulanate 125 mg tablet insulin glargine 100 unit/mL (3 100 unit subcut QAM #90 mL 11/13/24 11/24/24 mL) subcutaneous pen (Lantus Solostar U-100 Insulin) lancets #300 ea 11/13/24 11/24/24 Previous Rx's ?Medication ?Instructions ?Recorded blood-glucose meter (Accu-Chek #1 ea 03/17/20 Guide Glucose Meter) insulin syringe-needle U-100 1 mL #180 ea 12/06/20 31 gauge x 5/16 (BD Insulin Syringe Ultra-Fine) blood sugar diagnostic (Accu-Chek #300 strips 11/24/22 Guide test strips) blood-glucose meter,continuous #1 ea 01/02/23 (Dexcom G7 Rolloff Truck Driver) atorvastatin 40 mg tablet 40 mg PO DAILY #90 tab-caps 01/13/24 chlorthalidone 50 mg tablet 100 mg (2 x 50 mg) PO DAILY #180 01/13/24 tabs duloxetine 30 mg capsule,delayed 30 mg PO DAILY #90 caps 01/13/24 release duloxetine 60 mg capsule,delayed 60 mg PO DAILY #90 caps 01/13/24 release furosemide 20 mg tablet 20 mg PO DAILY #90 tabs 01/13/24 metformin 500 mg tablet 500 mg PO BID #180 tabs 01/13/24 spironolactone 25 mg tablet 25 mg PO DAILY #90 tabs 01/13/24 (Aldactone) tirzepatide 2.5 mg/0.5 mL 2.5 mg (0.5 mL) subcut QWEEK 4 02/25/24 subcutaneous pen injector weeks #2 mL (Mounjaro) potassium chloride 10 mEq 10 meq PO DAILY #90 tabs 03/11/24 tablet,extended release vibegron 75 mg tablet 75 mg PO DAILY #90 tabs 03/11/24 hydroxyurea 500 mg capsule 500 - 1,000 mg (1 - 2 x 500 mg) PO 04/08/24 DAILY #115 caps ibuprofen 600 mg tablet 600 mg PO TID PRN pain #90 tabs 06/24/24 ferrous sulfate 325 mg (65 mg 325 mg PO DAILY #30 tabs 09/07/24 iron) tablet apixaban 2.5 mg tablet 2.5 mg PO BID #180 tabs 10/06/24 blood-glucose sensor (Dexcom G7 #1 ea 10/06/24 Sensor device) fentanyl 25 mcg/hr transdermal 1 patch transdermal Q72H #5 ea 10/06/24 patch cyclobenzaprine 5 mg tablet 5 mg PO QHS #7 tabs 10/09/24 amoxicillin 875 mg-potassium 1 tab PO BID #14 tabs 11/12/24 clavulanate 125 mg tablet insulin glargine 100 unit/mL (3 100 unit subcut QAM #90 mL 11/13/24 mL) subcutaneous pen (Lantus Solostar U-100 Insulin) lancets #300 ea 11/13/24 Allergies Allergy/AdvReac Type Severity Reaction Status Date / Time clopidogrel Allergy Skin Rash Verified 11/12/24 11:30 oxybutynin AdvReac Intermediate Reflex Verified 11/12/24 11:30 propoxyphene AdvReac Nausea Verified 11/12/24 11:30 General Stated Complaint: Epistaxis KIMI: 3 Review of Systems All systems reviewed & are unremarkable except as noted in HPI and below Constitutional Constitutional: Reports as per HPI ENT Ears, Nose, Mouth, and Throat: Reports as per HPI, Reports dizziness and Reports epistaxis Neurologic Neurologic: Reports dizziness Exam Narrative Exam Narrative: Constitutional: Alert and oriented x3. Appears stated age. Normal body habitus. Head: Normocephalic, no trauma. Eyes: Pupils PERRL, Red reflex noted, EOM's intact. Eyelids symmetrical without lesions, discharge, or swelling. ENT: Bilateral TM's WNL, External ear normal to inspection, no mastoid TTP, swelling, or erythema, boggy left nasal turbinates, left nare is actively bleeding with a slow venous ooze.. Normal dentition, Posterior pharynx WNL, no exudate. Does have some postnasal blood noted. Dry mucous membranes. Chest: RRR, Normal S1, S2, distal pulses intact. Resp: Lungs clear to auscultation bilaterally, no wheezes, rales, or rhonchi. Abdomen: Soft, non-distended, Normoactive bowel sounds all 4 quads. Musculoskeletal: Normal gait, Moves all 4 extremities without difficulty. Skin: No suspicious rashes or lesions. Capillary refill less than 2 sec. Neurologic: Cranial nerves II-XII intact. Alert and oriented x 3. Motor: No deficits noted. Sensory: Intact bilaterally all 4 extremities. Hematologic/Lymphatic: No ecchymosis, no lymphadenopathy. Course Vital Signs Vital signs: Vital Signs Temperature 36.6 C 11/24/24 15:54 Pulse 88 11/24/24 15:54 Respiratory Rate 16 11/24/24 15:54 Blood Pressure 176/63 H 11/24/24 15:54 Pulse Oximetry 96 11/24/24 15:54 Temperature 36.6 C 11/24/24 15:54 Temperature Source Oral 11/24/24 15:54 Pulse 88 11/24/24 15:54 Respiratory Rate 16 11/24/24 15:54 Blood Pressure 176/63 H 11/24/24 15:54 Blood Pressure Position Sitting 11/24/24 15:54 Pulse Oximetry 96 11/24/24 15:54 Oxygen Delivery Method Room Air 11/24/24 15:54 Oxygen Flow Rate 0 11/24/24 15:54 Pain Level 0 11/24/24 15:54 Medical Decision Making 73-year-old female presents to the ER with chief complaint of epistaxis since 5:30 PM yesterday evening. Patient reports that she was standing, lost her balance get her nose on the counter couple minutes later her nose began to bleed. Is mostly bleeding from the left nare. She does take apixaban for atrial fibrillation. She reports that she has been blowing her nose and has had clots and is unable to get it to stop. She was seen here the end of October and had bilateral nasal packing. She has no ecchymosis or contusion noted. She does have some mild amount of tenderness to the distal bridge of her nose with palpation. No obvious deformity. Denies any headache or neck pain. She does report feeling tired and lightheaded. She does have a small ooze noted from the left nare. 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 Will order labs CBC CMP PT PTT, x-ray of nasal bones to rule out fracture, TXA soaked gauze and Travon-Synephrine spray ordered. A nose clip placed. I am unable to visualize the exact area of bleeding at this time. 1631: Travon-Synephrine nasal spray applied to both nares. I have 100 mg TXA soaked gauze placed in the left nare. Will reevaluate after imaging. On reevaluation patient does have blood clot in the back of her throat which bedside suction was used to help dislodge. Bleeding seems to be controlled at this time. Labs show white blood cell count of 18.19 hemoglobin 7.6 hematocrit 25.2 which is down from the end of October which was hemoglobin of 9 and 31 potassium is 5.9, BUN is 83 creatinine 1.8 GFR 29 glucose 346. Will give 500 cc normal saline bolus and a unit of PRBCs-type and screen ordered. X-ray nasal bones show no nasal fracture. EKG ordered due to the hyperkalemia. This could be because of her kidney functions. Will redraw after the blood and fluids. On reevaluation patient's bleeding has stopped at this time. Discussed possible admission she is agreeable to plan. I also discussed blood transfusion consent was signed. Plan to discuss with hospitalist. 1850: Spoke with Dr. Medina with hospitalist, at this time he attributes the azotemia to blood in GI tract from epistaxis, will re-check status after transfusion and plan for DC home if patient feels improved. Blood transfusion is complete, patient has tolerated p.o. without difficulty. Will plan for discharge home. Instructed to return for return and bleeding from her nose she verbalized understanding. Will have her follow-up with ear nose and throat. Will have her hold off on her Eliquis for an additional 24 hours. Patient remained hemodynamically stable throughout the remainder of her stay. Did discuss strict return instructions with her she verbalized understanding. Medical Records Medical records reviewed: Yes I reviewed the patient's medical records. Lab Data Lab results reviewed: Yes I reviewed the patient's lab results. Labs: Laboratory Tests Range/Units 11/24/24 11/24/24 17:00 18:05 WBC (4.4-10.8) 10^3/uL 18.19 H RBC (3.93-5.22) 10^6/uL 2.48 L Hgb (11.2-15.7) g/dL 7.6 L Hct (36.0-46.0) % 25.2 L MCV (80-95) fL 102 H MCH (27.0-33.0) pg 30.6 MCHC (32.0-36.0) % 30.2 L RDW (11.7-14.6) % 19.1 H Plt Count (130-400) 10^3/uL 549 H MPV (8.0-11.0) fL 10.0 Immature Gran % % 2.5 Neutrophils % % 83.2 Lymphocytes % % 7.6 Monocytes % % 5.7 Eosinophils % % 0.5 Basophils % % 0.5 Nucleated RBC % (0.0-0.3) % 0.1 Absolute Neutrophils (1.2-6.7) 10^3/uL 15.13 H Absolute Lymphocytes (1.2-3.4) 10^3/uL 1.38 Absolute Monocytes (0.1-0.8) 10^3/uL 1.04 H Absolute Eosinophils (0.0-0.7) 10^3/uL 0.09 Absolute Basophils (0.0-0.2) 10^3/uL 0.09 RBC Morphology See Below Hypochromasia 1+ PT (9.1-11.1) sec 11.0 INR (0.9-1.1) 1.1 APTT (20.6-30.2) sec 27.6 Sodium (136-145) mmol/L 138 Potassium (3.5-5.1) mmol/L 5.9 H Chloride (98-107) mmol/L 103 Carbon Dioxide (21.0-32.0) mmol/L 24.3 Anion Gap (3-11) mmol/L 10.7 BUN (7-18) mg/dL 83 H* Creatinine (0.55-1.02) mg/dL 1.8 H Est GFR (CKD-EPI 2020) (mL/min/1.73m2) 29.38 Glucose (74-106) mg/dL 346 H Calcium (8.5-10.1) mg/dL 9.2 Total Bilirubin (0.2-1.0) mg/dL 0.3 AST (15-37) U/L 5 L ALT (14-59) U/L 18 Alkaline Phosphatase (46-116) U/L 85 Total Protein (6.4-8.2) g/dL 6.8 Albumin (3.4-5.0) g/dL 3.0 L Crossmatch See Detail Quality:SDOH Health Related Social Needs: No Data to Display PFSH All Active Problems (Updated 11/24/24 @ 21:00 by Chely Fernandez NP) Anemia (Chronic) Acute sinus infection (Acute) Epistaxis (Acute) Paroxysmal A-fib (Acute) dx in hospital 05/2022 Chest pain (Acute) Chronic pain (Chronic) CAD (coronary artery disease) (Chronic) KEVIN (acute kidney injury) (Acute) Acute confusion (Acute) Severe anemia (Acute) Multiple open wounds of right lower leg (Acute) Chronic pain of right lower extremity (Acute) Bilateral carpal tunnel syndrome (Acute) B/L ECTR: 06/24/2024 Ulnar neuropathy of both upper extremities (Acute) Renal lesion (Acute) Phlegm in throat (Acute) Hand numbness (Acute) Lipodermatosclerosis (Acute) Bladder leak (Acute) Weight gain (Acute) Rash (Acute) Change in bowel habits (Acute) 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 Harvey. Osteoarthritis of right hip (Chronic) Injection under fluoroscopy: 10/01/2019 RLS (restless legs syndrome) (Chronic) Primary osteoarthritis of right knee (Chronic) Chronic pain of left lower extremity (Chronic) await ironmolder recommendations Polyp of colon (Acute 09/15/09) 09/25 COLONOSCOPY: ONE TUBULAR ADENOMA AND FOUR HYPERPLASTIC POLYPS. ALEX (obstructive sleep apnea) (Chronic 03/11/18) not on CPAP due to bedroom size Hyperlipidemia (Acute 01/14/14) History of tobacco use (Acute) Essential hypertension (Acute 08/18/13) Cataracts, both eyes (Acute) 11/11/15 OPTICAL EXPRESSIONS; EARLY CATARACTS B12 deficiency (Acute 04/08/15) Atherosclerosis of [place] coronary artery (Acute) Stent RCA 2006 Hyperlipidemia (Chronic) Hypertension (Chronic) CAD (coronary artery disease) (Chronic) S/P stent 2004 Peripheral vascular disease (Chronic) S/P right SFA antioplasty an sstenting, 2003. Left DVA to [place] popliteal bypass with Conesus-Ruben, 2003. Bypass Left Stent Right 2005 left BKA 08/28 Medical History Venous insufficiency of leg Atrial fibrillation Fracture, femur closed, shaft (05/13/22) (L) Carpal tunnel syndrome (05/16/09) Hypertension History of tobacco abuse Quit 2004 Surgical History Status post amputation of lesser toe of right foot History of left hip replacement History of total replacement of left shoulder joint 02/08/23. -hb S/P peripheral artery angioplasty with stent placement Status post below-knee amputation of left lower extremity (2012) History of total right hip replacement (08/03/20) Hx of tubal ligation History of carpal tunnel release Bilaterally Family History Mother , 74 Neoplasm UTERINE Osteoporosis Uterine cancer Lung cancer Father Lung cancer Sister Neoplasm MELANOMA Breast cancer Sister No problems noted. Sister Skin cancer Brother No problems noted. Son Alcohol abuse Depression Maternal Grandfather Stomach cancer Paternal Grandfather No problems noted. Maternal Grandmother No problems noted. Paternal Grandmother No problems noted. Daughter Depression Social History Smoking/Tobacco Use Status: Former Tobacco Use tobacco type: cigarettes Quit Date: 09/16/04 Tobacco: How many years used: 37 Second Hand Exposure: Yes Smoking risk assessment performed?: Yes Alcohol Intake: current Alcohol Intake frequency: a few times a month Alcohol type: beer and hard liquor Drug use: Never Substance use type: does not use Details: Patient drank a alcoholic beverage yesterday (06/23) Caregiver/Support person: No Household members: none Housing: house Do you need help understanding health information?: Rarely current occupation: [employer] Pets and animals: Yes Pets and animals: cat(s) Sexually active: No Do you think of yourself as: straight/heterosexual Current gender identity: female What is your relationship status?: How often do you talk on the phone with friends or family?: three or more times per week How often do you get together with friends or relatives?: decline to answer How often do you attend hoahaoism or presybeterian services?: 1-3 times per year Do you belong to any clubs or organized social groups?: no Panel score (0-1 are the most socially isolated patients): 2 What type of physical activity do you participate in: none Carmelina/Worship: Voodoo Special carmelina needs: No Seatbelt use: always Helmet use: Yes Helmet use: always Drive intox 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 pile driver: No Do you feel safe at home: Yes Do you feel safe in your relationship?: Yes Would you like helpful sources: No
[2024-11-24] MEDS: Phenylephrine SPRAY 1% 15 ML BTL NS (16:37)
[2024-11-24] MEDS: Tranexamic Acid 1,000 MG/10 ML VIAL 500 MG NS (16:37)
[2024-11-24 17:08] LABS: Abs Immature Grans 0.46 10^3/uL (0.0-0.06); Absolute Basophil Count 0.09 10^3/uL (0.0-0.2); Absolute Eosinophil Count 0.09 10^3/uL (0.0-0.7); Absolute Monocyte Count 1.04 10^3/uL (0.1-0.8); Basophils % 0.5 %; Eosinophils % 0.5 %; HCT 25.2 % (36.0-46.0); HGB 7.6 g/dL (11.2-15.7); Immature Grans % 2.5 %; Lymphocytes % 7.6 %; MCH 30.6 pg (27.0-33.0); MCHC 30.2 % (32.0-36.0); MCV 102 fL (80-95); Monocytes % 5.7 %; Neutrophils % 83.2 %; Nucleated RBC 0.1 % (0.0-0.3); Platelet Count 549 10^3/uL (130-400); RBC 2.48 10^6/uL (3.93-5.22); RDW 19.1 % (11.7-14.6); RDW-SD 70.9 fL; WBC 18.19 10^3/uL (4.4-10.8)
[2024-11-24 17:22] LABS: INR 1.1 (0.9-1.1); PTT Activated 27.6 sec (20.6-30.2)
[2024-11-24 17:24] LABS: Absolute Lymphocyte Count 1.38 10^3/uL (1.2-3.4); Absolute Neutrophil Count 15.13 10^3/uL (1.2-6.7)
[2024-11-24 17:25] LABS: Diff Comment RBC Morph Reviewed; Hypochromasia 1+
[2024-11-24 17:26] LABS: ALT 18 U/L (14-59); AST 5 U/L (15-37); Alkaline Phosphatase 85 U/L (46-116); Anion Gap 10.7 mmol/L (3-11); Bilirubin, Total 0.3 mg/dL (0.2-1.0); CO2 24.3 mmol/L (21.0-32.0); CREATININE 1.8 mg/dL (0.55-1.02); Calcium 9.2 mg/dL (8.5-10.1); Chloride 103 mmol/L (98-107); Estimated GFR 29.38 (mL/min/1.73m2); Glucose 346 mg/dL (74-106); Potassium 5.9 mmol/L (3.5-5.1); Sodium 138 mmol/L (136-145); Total Protein 6.8 g/dL (6.4-8.2)
[2024-11-24 17:31] LABS: BUN 83 mg/dL (7-18)
--- NOTE | 2024-11-24 17:45 | RT.EKG_ITS ---
APPROVED REPORT Exam: Resting ECG Reason for Exam: Hyperkalemia Patient Location: E HR:89 bpm ECG Measurements Heart Rate 89 AXIS NC 162 P 40 QRSd 82 QRS 6 QT 338 T 68 QTc 411 Conclusion Sinus rhythm 89 normal axis no stemi
[2024-11-24] MEDS: Normal Saline 500 ML IV (18:43)
== END 2024-11-24 21:19 | disposition home or self-care (01) ==
PROVIDERS: Emergency Provider Registered Nurse Emergency; PCP Family Medicine
DX: R04.0 Epistaxis (principal); D64.9 Anemia, unspecified; I48.0 Paroxysmal atrial fibrillation; I10 Essential (primary) hypertension; E11.9 Type 2 diabetes mellitus without complications; I25.10 Atherosclerotic heart disease of native coronary artery without angina pectoris; E87.5 Hyperkalemia; Z95.5 Presence of coronary angioplasty implant and graft; Z79.4 Long term (current) use of insulin; Z79.85 Long-term (current) use of injectable non-insulin antidiabetic drugs; Z79.01 Long term (current) use of anticoagulants; Z87.891 Personal history of nicotine dependence
CPT/HCPCS: 30901; 36415; 36430; 80053; 82962; 86850; 86900; 86901; 86920; 93005; 96360; 96361; 99285; 70160; 85025; 85610; 85730; 93010; P9016

== ENCOUNTER 2024-11-28 13:51 | Observation (INO) | payer MEDICARE, BC, SELFPAY ==
[2024-11-28] VITALS (21 sets, daily range): BP systolic 100–137; BP diastolic 29–102; PULSE 59–87; RESP 13–21; TEMP 36.2–36.8; O2SAT 92–100
--- NOTE | 2024-11-28 14:15 | RT.EKG_ITS ---
APPROVED REPORT Exam: Resting ECG Reason for Exam: lightheaded Patient Location: E HR:67 bpm ECG Measurements Heart Rate 67 AXIS LA 187 P 30 QRSd 92 QRS 28 QT 411 T 74 QTc 435 Conclusion Sinus rhythm...normal P axis, V-rate 60- 99 Supraventricular bigeminy...bigeminy string>4 w/ SV complexes appropriate intervals no ST segment or T wave abnormalities to suggest occlusive IN
--- NOTE | 2024-11-28 14:34 | ED.GENADUL_ITS ---
Discharge Plan Disposition Patient Disposition: Admit to [facility] Condition: Serious Discharge Details Clinical Impression: Anemia, Acute kidney injury, Azotemia, Hyperkalemia Primary Care Provider: Gui Graham ED Provider: Leann Rayo Home Meds and New Rx's Prescriptions: No Action carvedilol 12.5 mg tablet 12.5 mg PO BID Rx Instructions: must administer with a meal/food Mounjaro 2.5 mg/0.5 mL pen injector 2.5 mg subcut QWEEK MDD 2.5 28 Days Qty: 2 12RF Rx Instructions: Inject 2.5 mg subcutaneously once weekly as directed. fentanyl 25 mcg/hr patch 72 hour 1 patch transdermal Q72H MDD 1 patch Qty: 5 0RF Patient Comments: doesn't have one on now (DME) Dexcom G7 Sensor Device See Rx Instructions .Route Qty: 1 11RF Rx Instructions: As directed apixaban 2.5 mg tablet 2.5 mg PO BID Qty: 180 3RF cyclobenzaprine 5 mg tablet 5 mg PO QHS Qty: 7 0RF (DME) Dexcom G7 Group Sales Manager Misc See Rx Instructions .Route Qty: 1 0RF Rx Instructions: As directed vibegron 75 mg tablet 75 mg PO DAILY Qty: 90 3RF Rx Instructions: per [facility] [place] gyne, for urge incontinence potassium chloride 10 mEq tablet extended release 10 meq PO DAILY Qty: 90 3RF (DME) blood-glucose meter [Accu-Chek Guide Glucose Meter] Misc See Rx Instructions .ROUTE .MEDSUPPLY Qty: 1 0RF Rx Instructions: test as directed (DME) insulin syringe-needle U-100 [BD Insulin Syringe Ultra-Fine] 1 mL 31 gauge x 5/16 syringe See Rx Instructions .ROUTE .MEDSUPPLY Qty: 180 3RF Rx Instructions: 1 injection sq BID folic acid 1 mg tablet 1 mg PO DAILY (DME) Accu-Chek Guide test strips Strip 1 ea Miscellaneous DAILY Qty: 300 3RF Rx Instructions: test 3 x day magnesium 250 mg tablet 500 mg PO QHS atorvastatin 40 mg tablet 40 mg PO DAILY Qty: 90 3RF chlorthalidone 50 mg tablet 100 mg PO DAILY Qty: 180 3RF duloxetine 60 mg capsule,delayed release(DR/EC) 60 mg PO DAILY Qty: 90 3RF duloxetine 30 mg capsule,delayed release(DR/EC) 30 mg PO DAILY Qty: 90 3RF Rx Instructions: take with a 60 mg capsule to equal 90 mg/day furosemide 20 mg tablet 20 mg PO DAILY Qty: 90 3RF metformin 500 mg tablet 500 mg PO BID Qty: 180 3RF spironolactone [Aldactone] 25 mg tablet 25 mg PO DAILY Qty: 90 3RF hydroxyurea 500 mg capsule 500 - 1,000 mg PO DAILY Qty: 115 3RF Rx Instructions: 500 mg/day except take 1000 mg Sat and Saturday aspirin [Adult Aspirin Regimen] 81 mg tablet,delayed release (DR/EC) 81 mg PO DAILY (DME) lancets Misc 1 ea Miscellaneous DAILY Qty: 300 3RF Rx Instructions: test 3 x /day insulin glargine [Lantus Solostar U-100 Insulin] 100 unit/mL (3 mL) insulin pen 100 unit subcut QAM Qty: 90 3RF ibuprofen 600 mg tablet 600 mg PO TID PRN (Reason: pain) Qty: 90 0RF amoxicillin-pot clavulanate 875-125 mg tablet 1 tab PO BID Qty: 14 0RF losartan 100 mg tablet 100 mg PO HS ferrous sulfate 325 mg (65 mg iron) Tablet 325 mg PO DAILY Qty: 30 0RF ropinirole 8 mg tablet extended release 24 hr 8 mg PO HS HPI General Mode of arrival: ambulatory . Date/Time Provider Initiated Documentation: 11/28/24 13:56 . Limitations to Documentation: no limitations . Information obtained by: patient and old records reviewed (ed visit note 11/24) . HPI Narrative: 73yo F with hx afib on eliquis, CAD, HTN, DM, PVD, anemia, recent epistaxis requiring transfusion on ED visit 11/24/24, presenting for generalized fatigue and mental 'fogginess'. Has had difficulty concentrating and generalized whole body weakness for several days, seemed to get worse this morning after breakfast. Did not feel comfortable driving herself to the ED and so had someone help her with this. Has never felt like this before. No vertigo, numbness, or focal weakness. No fever, headache, nausea, vomiting, abdominal pain, bloody stool, or dark stool. No further nosebleed. No other bleeding. No easy bruising. No chest pain. Some dyspnea on exertion which is typical for her but seems worse over the past several days. Related Data Home Medications ?Medication ?Instructions ?Recorded ?Confirmed blood-glucose meter (Accu-Chek #1 ea 03/17/20 11/28/24 Guide Glucose Meter) insulin syringe-needle U-100 1 mL #180 ea 12/06/20 11/28/24 31 gauge x 5/16 (BD Insulin Syringe Ultra-Fine) folic acid 1 mg tablet 1 mg PO DAILY 06/05/22 11/28/24 blood sugar diagnostic (Accu-Chek #300 strips 11/24/22 11/28/24 Guide test strips) blood-glucose meter,continuous #1 ea 01/02/23 11/28/24 (ManageIQcom G7 Group Sales Manager) magnesium 250 mg tablet 500 mg PO QHS 07/01/23 11/28/24 carvedilol 12.5 mg tablet 12.5 mg PO BID 12/23/23 11/28/24 atorvastatin 40 mg tablet 40 mg PO DAILY #90 tab-caps 01/13/24 11/28/24 chlorthalidone 50 mg tablet 100 mg (2 x 50 mg) PO DAILY #180 01/13/24 11/28/24 tabs duloxetine 30 mg capsule,delayed 30 mg PO DAILY #90 caps 01/13/24 11/28/24 release duloxetine 60 mg capsule,delayed 60 mg PO DAILY #90 caps 01/13/24 11/28/24 release furosemide 20 mg tablet 20 mg PO DAILY #90 tabs 01/13/24 11/28/24 metformin 500 mg tablet 500 mg PO BID #180 tabs 01/13/24 11/28/24 spironolactone 25 mg tablet 25 mg PO DAILY #90 tabs 01/13/24 11/28/24 (Aldactone) tirzepatide 2.5 mg/0.5 mL 2.5 mg (0.5 mL) subcut QWEEK 4 02/25/24 11/28/24 subcutaneous pen injector weeks #2 mL (Monserrat) potassium chloride 10 mEq 10 meq PO DAILY #90 tabs 03/11/24 11/28/24 tablet,extended release vibegron 75 mg tablet 75 mg PO DAILY #90 tabs 03/11/24 11/28/24 hydroxyurea 500 mg capsule 500 - 1,000 mg (1 - 2 x 500 mg) PO 04/08/24 11/28/24 DAILY #115 caps ibuprofen 600 mg tablet 600 mg PO TID PRN pain #90 tabs 06/24/24 11/28/24 aspirin 81 mg tablet,delayed 81 mg PO DAILY 08/06/24 11/28/24 release (Adult Aspirin Regimen) losartan 100 mg tablet 100 mg PO HS 09/06/24 11/28/24 ferrous sulfate 325 mg (65 mg 325 mg PO DAILY #30 tabs 09/07/24 11/28/24 iron) tablet ropinirole 8 mg tablet,extended 8 mg PO HS 09/17/24 11/28/24 release 24 hr apixaban 2.5 mg tablet 2.5 mg PO BID #180 tabs 10/06/24 11/28/24 blood-glucose sensor (Dexcom G7 #1 ea 10/06/24 11/28/24 Sensor device) fentanyl 25 mcg/hr transdermal 1 patch transdermal Q72H #5 ea 10/06/24 11/28/24 patch cyclobenzaprine 5 mg tablet 5 mg PO QHS #7 tabs 10/09/24 11/28/24 amoxicillin 875 mg-potassium 1 tab PO BID #14 tabs 11/12/24 11/28/24 clavulanate 125 mg tablet insulin glargine 100 unit/mL (3 100 unit subcut QAM #90 mL 11/13/24 11/28/24 mL) subcutaneous pen (Lantus Solostar U-100 Insulin) lancets #300 ea 11/13/24 11/28/24 Previous Rx's ?Medication ?Instructions ?Recorded blood-glucose meter (Accu-Chek #1 ea 03/17/20 Guide Glucose Meter) insulin syringe-needle U-100 1 mL #180 ea 12/06/20 31 gauge x 5/16 (BD Insulin Syringe Ultra-Fine) blood sugar diagnostic (Accu-Chek #300 strips 11/24/22 Guide test strips) blood-glucose meter,continuous #1 ea 01/02/23 (Dexcom G7 Group Sales Manager) atorvastatin 40 mg tablet 40 mg PO DAILY #90 tab-caps 01/13/24 chlorthalidone 50 mg tablet 100 mg (2 x 50 mg) PO DAILY #180 01/13/24 tabs duloxetine 30 mg capsule,delayed 30 mg PO DAILY #90 caps 01/13/24 release duloxetine 60 mg capsule,delayed 60 mg PO DAILY #90 caps 01/13/24 release furosemide 20 mg tablet 20 mg PO DAILY #90 tabs 01/13/24 metformin 500 mg tablet 500 mg PO BID #180 tabs 01/13/24 spironolactone 25 mg tablet 25 mg PO DAILY #90 tabs 01/13/24 (Aldactone) tirzepatide 2.5 mg/0.5 mL 2.5 mg (0.5 mL) subcut QWEEK 4 02/25/24 subcutaneous pen injector weeks #2 mL (Mounjaro) potassium chloride 10 mEq 10 meq PO DAILY #90 tabs 03/11/24 tablet,extended release vibegron 75 mg tablet 75 mg PO DAILY #90 tabs 03/11/24 hydroxyurea 500 mg capsule 500 - 1,000 mg (1 - 2 x 500 mg) PO 04/08/24 DAILY #115 caps ibuprofen 600 mg tablet 600 mg PO TID PRN pain #90 tabs 06/24/24 ferrous sulfate 325 mg (65 mg 325 mg PO DAILY #30 tabs 09/07/24 iron) tablet apixaban 2.5 mg tablet 2.5 mg PO BID #180 tabs 10/06/24 blood-glucose sensor (Dexcom G7 #1 ea 10/06/24 Sensor device) fentanyl 25 mcg/hr transdermal 1 patch transdermal Q72H #5 ea 10/06/24 patch cyclobenzaprine 5 mg tablet 5 mg PO QHS #7 tabs 10/09/24 amoxicillin 875 mg-potassium 1 tab PO BID #14 tabs 11/12/24 clavulanate 125 mg tablet insulin glargine 100 unit/mL (3 100 unit subcut QAM #90 mL 11/13/24 mL) subcutaneous pen (Lantus Solostar U-100 Insulin) lancets #300 ea 11/13/24 Allergies Allergy/AdvReac Type Severity Reaction Status Date / Time clopidogrel Allergy Skin Rash Verified 11/28/24 13:56 oxybutynin AdvReac Intermediate Reflex Verified 11/28/24 13:56 propoxyphene AdvReac Nausea Verified 11/28/24 13:56 General Stated Complaint: GenMedical KIMI: 3 Review of Systems Narrative: see HPI Exam Narrative Exam Narrative: General: Alert, well appearing, well nourished, in no acute distress. Head: Normocephalic, atraumatic. Eye: Pale conjuctiva. Neck: Trachea midline, ?Neck supple. ENT: ?MMM.? No oropharygeal lesions or exudate. Cardiac: ?RRR, no murmurs appreciated Resp: No respiratory distress. CTAB. Abd: ?Soft, non-distended, nontender Extremities: Left BKA.? RLE moderate edema, mild venous stasis ulcers johns & calf, scant serous drainage on dressing. Neuro: ? GCS 15.? PERRL.? EOMI.? Fluent speech, no dysarthria. Motor- 5/5 strength symmetric bilateral upper and lower extremities including shoulder abductors/adductors, elbow flexors/extensors, wrist flexors/extensors, finger abductors/adductors, hipflexors/extensors, and right knee flexors/extensors & ankle dorsiflexors and planter flexors. Sensation- ?Intact to light touch and symmetric multiple dermatomes including upper and lower extremities Coordination- No dysmetria on finger to nose Gait/station: ?Normal stance.? No truncal ataxia. Steady gait CRANIAL NERVES: II: Pupils equal and reactive, III, IV, : EOM intact, no gaze preference or deviation, no nystagmus. V: normal sensation in V1, V2, and V3 segments bilaterally VII: no asymmetry, no nasolabial fold flattening VIII: normal hearing to speech IX, X: normal palatal elevation, no uvular deviation XI: 5/5 head turn and 5/5 shoulder shrug bilaterally XII: midline tongue protrusion Course Vital Signs Vital signs: Vital Signs Temperature 36.3 C L 11/28/24 13:54 Pulse 87 11/28/24 13:54 Respiratory Rate 18 11/28/24 13:54 Blood Pressure 109/56 L 11/28/24 13:54 Pulse Oximetry 95 11/28/24 13:54 Temperature 36.3 C L 11/28/24 13:58 Pulse 87 11/28/24 13:58 Respiratory Rate 18 11/28/24 14:09 Respiratory Effort Normal 11/28/24 14:09 Respiratory Depth Normal 11/28/24 14:09 Respiratory Pattern Normal 11/28/24 14:09 Blood Pressure 109/56 L 11/28/24 13:58 Pulse Oximetry 95 11/28/24 13:58 Medical Decision Making 73yo F with hx afib on eliquis, CAD, HTN, DM, PVD, anemia, recent epistaxis requiring transfusion on ED visit 11/24/24, presenting for generalized fatigue and mental 'fogginess'. No further bleeding since discharge, no dark stool, no abdominal pain. Vital signs reassuring on arrival. Pale conjunctiva on exam, non-focal neuro exam, no abdominal tenderness. Orthostatic vital signs without orthostasis. EKG SR, bigeminny, appropriate intervals, no ST segment or T wave abnormalities to suggest occlusive CA. Baseline wander leads III Labs reviewed as below, CBC with anemia Hg of 7.0 (7.6 on prior visit prior transfusion of 1UPRBC), CMP with worsening kidney function Cr 2.5 (from 1.8 on 11/24) and BUN 88 (from 83) with K 5.7 (down from 5.9 and no hyperkalemic changes on EKG), Mg normal, coags reassuring, BNP not suggestive of acute heart failure, trop normal in the setting of 4 hours of symptoms (would not repeat). Unclear if symptoms due to anemia vs azotemia; regardless azotemia likely pre- renal given hx and BUN/Cr so will transfuse 1U PRBCs now. Risks/benefits discussed with patient who consents to transfusion. Discussed with [facility] hospitalist medicine EUGENE Apryl Ovalle; patient accepted for observation. Awaiting orders and transfer to the floor. Medical Records Medical records reviewed: Yes I reviewed the patient's medical records. Lab Data Lab results reviewed: Yes I reviewed the patient's lab results. Labs: Laboratory Tests Range/Units 11/28/24 11/28/24 15:30 16:20 WBC (4.4-10.8) 10^3/uL 13.65 H RBC (3.93-5.22) 10^6/uL 2.29 L Hgb (11.2-15.7) g/dL 7.0 L* Hct (36.0-46.0) % 23.7 L MCV (80-95) fL 104 H MCH (27.0-33.0) pg 30.6 MCHC (32.0-36.0) % 29.5 L RDW (11.7-14.6) % 20.0 H Plt Count (130-400) 10^3/uL 434 H MPV (8.0-11.0) fL 10.0 Immature Gran % % 1.5 Neutrophils % % 88.7 Lymphocytes % % 5.5 Monocytes % % 3.7 Eosinophils % % 0.3 Basophils % % 0.3 Nucleated RBC % (0.0-0.3) % 0.0 Absolute Neutrophils (1.2-6.7) 10^3/uL 12.11 H Absolute Lymphocytes (1.2-3.4) 10^3/uL 0.75 L Absolute Monocytes (0.1-0.8) 10^3/uL 0.51 Absolute Eosinophils (0.0-0.7) 10^3/uL 0.04 Absolute Basophils (0.0-0.2) 10^3/uL 0.04 PT (9.1-11.1) sec 10.4 INR (0.9-1.1) 1.0 APTT (20.6-30.2) sec 26.1 Sodium (136-145) mmol/L 143 Potassium (3.5-5.1) mmol/L 5.7 H Chloride (98-107) mmol/L 109 H Carbon Dioxide (21.0-32.0) mmol/L 25.8 Anion Gap (3-11) mmol/L 8.2 BUN (7-18) mg/dL 88 H* Creatinine (0.55-1.02) mg/dL 2.5 H Est GFR (CKD-EPI 2020) (mL/min/1.73m2) 19.81 Glucose (74-106) mg/dL 133 H Calcium (8.5-10.1) mg/dL 8.8 Magnesium (1.8-2.4) mg/dL 1.8 Total Bilirubin (0.2-1.0) mg/dL 0.3 AST (15-37) U/L 10 L ALT (14-59) U/L 20 Alkaline Phosphatase (46-116) U/L 78 Troponin I (<or=51) ng/L 7 NT-Pro-B Natriuret Pep (<300) pg/mL 428 H Total Protein (6.4-8.2) g/dL 6.6 Albumin (3.4-5.0) g/dL 3.0 L Crossmatch See Detail Quality:SDOH Health Related Social Needs: No Data to Display PFSH All Active Problems (Updated 11/28/24 @ 16:49 by Leann Rayo MD) Hyperkalemia (Acute) Azotemia (Acute) Acute kidney injury (Acute) Anemia (Chronic) [id number]-[id number] kidney injury (Acute) Anemia (Chronic) Acute sinus infection (Acute) Epistaxis (Acute) Symptomatic anemia (Acute) Paroxysmal A-fib (Acute) dx in hospital 05/2022 Chest pain (Acute) Chronic pain (Chronic) CAD (coronary artery disease) (Chronic) KEVIN (acute kidney injury) (Acute) Acute confusion (Acute) Severe anemia (Acute) Multiple open wounds of right lower leg (Acute) Chronic pain of right lower extremity (Acute) Bilateral carpal tunnel syndrome (Acute) B/L ECTR: 06/24/2024 Ulnar neuropathy of both upper extremities (Acute) Renal lesion (Acute) Phlegm in throat (Acute) Hand numbness (Acute) Lipodermatosclerosis (Acute) Bladder leak (Acute) Weight gain (Acute) Rash (Acute) Change in bowel habits (Acute) 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 Harvey. Osteoarthritis of right hip (Chronic) Injection under fluoroscopy: 10/01/2019 RLS (restless legs syndrome) (Chronic) Primary osteoarthritis of right knee (Chronic) Chronic pain of left lower extremity (Chronic) await aviation mechanic recommendations Polyp of colon (Acute 09/15/09) 09/25 COLONOSCOPY: ONE TUBULAR ADENOMA AND FOUR HYPERPLASTIC POLYPS. ALEX (obstructive sleep apnea) (Chronic 03/11/18) not on CPAP due to bedroom size Hyperlipidemia (Acute 01/14/14) History of tobacco use (Acute) Essential hypertension (Acute 08/18/13) Cataracts, both eyes (Acute) 11/11/15 OPTICAL EXPRESSIONS; EARLY CATARACTS B12 deficiency (Acute 04/08/15) Atherosclerosis of jena coronary artery (Acute) Stent RCA 2006 Hyperlipidemia (Chronic) Hypertension (Chronic) CAD (coronary artery disease) (Chronic) S/P stent 2004 Peripheral vascular disease (Chronic) S/P right SFA antioplasty an sstenting, 2003. Left DVA to [place] popliteal bypass with Ceylon-Ruben, 2003. Bypass Left Stent Right 2005 left BKA 08/28 Medical History Venous insufficiency of leg Atrial fibrillation Fracture, femur closed, shaft (05/13/22) (L) Carpal tunnel syndrome (05/16/09) Hypertension History of tobacco abuse Quit 2004 Surgical History Status post amputation of lesser toe of right foot History of left hip replacement History of total replacement of left shoulder joint 02/08/23. -hb S/P peripheral artery angioplasty with stent placement Status post below-knee amputation of left lower extremity (2012) History of total right hip replacement (08/03/20) Hx of tubal ligation History of carpal tunnel release Bilaterally Family History Mother , 74 Neoplasm UTERINE Osteoporosis Uterine cancer Lung cancer Father Lung cancer Sister Neoplasm MELANOMA Breast cancer Sister No problems noted. Sister Skin cancer Brother No problems noted. Son Alcohol abuse Depression Maternal Grandfather Stomach cancer Paternal Grandfather No problems noted. Maternal Grandmother No problems noted. Paternal Grandmother No problems noted. Daughter Depression Social History Smoking/Tobacco Use Status: Former Tobacco Use tobacco type: cigarettes Quit Date: 09/16/04 Tobacco: How many years used: 37 Second Hand Exposure: Yes Smoking risk assessment performed?: Yes Alcohol Intake: current Alcohol Intake frequency: a few times a month Alcohol type: beer and hard liquor Drug use: Never Substance use type: does not use Details: Patient drank a alcoholic beverage yesterday (06/23) Caregiver/Support person: No Household members: none Housing: house Do you need help understanding health information?: Rarely current occupation: [facility] [employer] [facility] [employer] Pets and animals: Yes Pets and animals: cat(s) Sexually active: No Do you think of yourself as: straight/heterosexual Current gender identity: female What is your relationship status?: How often do you talk on the phone with friends or family?: three or more times per week How often do you get together with friends or relatives?: decline to answer How often do you attend quaker or oriental orthodox services?: 1-3 times per year Do you belong to any clubs or organized social groups?: no Panel score (0-1 are the most socially isolated patients): 2 What type of physical activity do you participate in: none Carmelina/Moravian: Orthodoxy Special carmelina needs: No Seatbelt use: always Helmet use: Yes Helmet use: always Drive intox 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 bicycle taxi driver: No Do you feel safe at home: Yes Do you feel safe in your relationship?: Yes Would you like helpful sources: No PAWSS Have you Been Recently Intoxicated or Drunk Within the Last 30 days?: No Have you Ever Experienced Previous Episodes of Alcohol Withdrawal?: No Have you ever Experienced Withdrawal Seizures?: No Have you ever Experienced Delirium Tremens(DT)s?: No Have you ever undergone Alcohol Rehabilitation Treatment (i.e, inpt ot outpatient treatment programs)?: No Have you ever Experienced Blackouts?: No Have you ever Combined Alcohol with other Downers within the last 90 days?: No Have you ever Combined Alcohol with any other Substance of Abuse during the last 90 days?: No Positive Blood Alcohol level on Presentation? [PCS.BAL]: No Evidence of Increased Autonomic Activity (i.e. HR>120, tremor, sweating, agitation, nausea)?: No Result: 0
[2024-11-28 15:36] LABS: Absolute Basophil Count 0.04 10^3/uL (0.0-0.2); Absolute Eosinophil Count 0.04 10^3/uL (0.0-0.7); Absolute Lymphocyte Count 0.75 10^3/uL (1.2-3.4); Absolute Monocyte Count 0.51 10^3/uL (0.1-0.8); Absolute Neutrophil Count 12.11 10^3/uL (1.2-6.7); Basophils % 0.3 %; Eosinophils % 0.3 %; HCT 23.7 % (36.0-46.0); Immature Grans % 1.5 %; Lymphocytes % 5.5 %; MCH 30.6 pg (27.0-33.0); MCHC 29.5 % (32.0-36.0); MCV 104 fL (80-95); Monocytes % 3.7 %; Neutrophils % 88.7 %; Platelet Count 434 10^3/uL (130-400); RBC 2.29 10^6/uL (3.93-5.22); RDW-SD 74.6 fL; WBC 13.65 10^3/uL (4.4-10.8)
[2024-11-28 15:51] LABS: PTT Activated 26.1 sec (20.6-30.2); Prothrombin Time 10.4 sec (9.1-11.1)
[2024-11-28 16:00] LABS: ALT 20 U/L (14-59); AST 10 U/L (15-37); Alkaline Phosphatase 78 U/L (46-116); Anion Gap 8.2 mmol/L (3-11); Bilirubin, Total 0.3 mg/dL (0.2-1.0); CO2 25.8 mmol/L (21.0-32.0); CREATININE 2.5 mg/dL (0.55-1.02); Calcium 8.8 mg/dL (8.5-10.1); Chloride 109 mmol/L (98-107); Estimated GFR 19.81 (mL/min/1.73m2); Glucose 133 mg/dL (74-106); Magnesium 1.8 mg/dL (1.8-2.4); NT-proBNP 428 pg/mL (<300); Potassium 5.7 mmol/L (3.5-5.1); Sodium 143 mmol/L (136-145); Total Protein 6.6 g/dL (6.4-8.2); Troponin I 7 ng/L (<or=51)
[2024-11-28 16:04] LABS: BUN 88 mg/dL (7-18)
--- NOTE | 2024-11-28 16:26 | HPE_ITS ---
Date of service: 11/28/24 Time of Service: 16:26 Assessment and Plan Assessment and plan (1) Symptomatic anemia: Status: Acute Assessment and plan: Fourth presentation here since August 2024 for symptomatic anemia requiring blood transfusions Fully anticoagulated on apixaban for atrial fibrillation and with a history of below the knee amputation secondary to severe peripheral arterial disease previous episodes associated with epitaxis, no obvious bleeding on today's presentation colonoscopy appx 5 years ago and no concerns were brought up. Pt also states she had a barium swallow at or around that time as well. Pt states this was done for screening purposes. Referred to observation Ordered for 1 unit of packed red blood cells Anticoagulation and antiplatelet placed on hold Follow serial H&H macrocytic Iron level 10 on August 2024 Will continue oral iron supplementation elevate for hemolytic anemia in setting of hydrea use, labs added present prior to recent blood transfusions pathologist review (2) Epistaxis: Status: Resolved Assessment and plan: -not currently active (3) Lbodn-mi-vdhmega kidney injury: Status: Acute Assessment and plan: Creatinine 2.5 which is above baseline of 1.7-1.8 Will hold diuretics and nephrotoxic drugs for now including metformin losartan chlorthalidone Lasix and spironolactone Avoid nephrotoxic drugs and renally dose Consider gentle IV hydration overnight after blood transfusion (4) Hyperkalemia: Status: Acute Assessment and plan: in setting of KEVIN, potassium supplementation and spironalactone will hold supplementation and spironalactone consider lasix after blood transfusion follow closely (5) RLS (restless legs syndrome): Status: Chronic Assessment and plan: -continue home ropinerole (6) Hyperlipidemia: Status: Acute Assessment and plan: -continue home statin (7) Essential hypertension: Status: Acute Assessment and plan: Will hold home spironolactone, losartan, lasix, chlorthalidone in setting of KEVIN continue carvedilol Monitor blood pressure closely (8) CAD (coronary artery disease): Status: Chronic Assessment and plan: No chest pain RCA stent 2006 vascular -holding ASA for now. continue statin and carvedilol (9) Chronic pain: Status: Chronic Assessment and plan: -From lipodermatosclerosis -continue home fentanyl patch Followed by [facility] (10) Type 2 diabetes mellitus with circulatory disorder, with long-term current use of insulin: Status: Acute Assessment and plan: Hemoglobin A1c in June 2024 6.1 Continue diabetic diet Will place metformin on hold in the setting of acute on chronic kidney injury Continue Tresiba, or convert to Lantus if unavailable Check blood sugars before meals and at bedtime Mounjaro will be placed on hold while hospitalized (11) Peripheral vascular disease: Status: Chronic Assessment and plan: Status post right SFA angioplasty and stenting in 2003 Left popliteal bypass 2004 Stent right 2006 BKA left 08/2013 On apixaban which will be placed on hold No compression stockings (12) Essential thrombocythemia: Status: Acute Assessment and plan: Followed by [facility] continue Hydrea (13) Lipodermatosclerosis: Status: Acute Assessment and plan: Followed by [facility] continue current pain management including fentanyl patch (14) Discharge planning issues: Status: Resolved Assessment and plan: No pharmacologic DVT prophylaxis at this time secondary to acute anemia thought to be secondary to acute bleeding. Has below the knee amputation on the right secondary to severe peripheral artery disease. No compression to left. anticipated discharge to home once medically stable Admission discussed with Dr. Espinal History of Present Illness Narrative: This is a 73-year-old female patient past medical history significant for atrial fibrillation anticoagulated on apixaban presented to the emergency department on November 24 for epitaxis. Hemoglobin at that time was 7.6. She received 1 unit of packed red blood cells was advised to hold her apixaban for 2 days and was discharged home. She returns today to the emergency department with reports of generalized weakness lightheadedness not feeling well she has had no evidence of ongoing bleeding she has had no black or tarry stools no nausea or abdominal pain no obvious bleeding or epitaxis. Workup in the emergency department does show a further drop in her hemoglobin to 7.0 with worsening kidney function with a creatinine now up to 2.5. She was ordered for 1 unit of packed red blood cells and hospitalist asked to [facility] for further evaluation and monitoring Review of Systems All systems reviewed & are unremarkable except as noted in HPI and below PFSH All Active Problems (Updated 11/28/24 @ 16:49 by Leann Rayo MD) Hyperkalemia (Acute) Azotemia (Acute) Acute kidney injury (Acute) Anemia (Chronic) Ndnjk-lt-vewwuyn kidney injury (Acute) Anemia (Chronic) Acute sinus infection (Acute) Epistaxis (Acute) Symptomatic anemia (Acute) Paroxysmal A-fib (Acute) dx in hospital 05/2022 Chest pain (Acute) Chronic pain (Chronic) CAD (coronary artery disease) (Chronic) KEVIN (acute kidney injury) (Acute) Acute confusion (Acute) Severe anemia (Acute) Multiple open wounds of right lower leg (Acute) Chronic pain of right lower extremity (Acute) Bilateral carpal tunnel syndrome (Acute) B/L ECTR: 06/24/2024 Ulnar neuropathy of both upper extremities (Acute) Renal lesion (Acute) Phlegm in throat (Acute) Hand numbness (Acute) Lipodermatosclerosis (Acute) Bladder leak (Acute) Weight gain (Acute) Rash (Acute) Change in bowel habits (Acute) 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 Harvey. Osteoarthritis of right hip (Chronic) Injection under fluoroscopy: 10/01/2019 RLS (restless legs syndrome) (Chronic) Primary osteoarthritis of right knee (Chronic) Chronic pain of left lower extremity (Chronic) await supervisor throwing department recommendations Polyp of colon (Acute 09/15/09) 09/25 COLONOSCOPY: ONE TUBULAR ADENOMA AND FOUR HYPERPLASTIC POLYPS. ALEX (obstructive sleep apnea) (Chronic 03/11/18) not on CPAP due to bedroom size Hyperlipidemia (Acute 01/14/14) History of tobacco use (Acute) Essential hypertension (Acute 08/18/13) Cataracts, both eyes (Acute) 11/11/15 OPTICAL EXPRESSIONS; EARLY CATARACTS B12 deficiency (Acute 04/08/15) Atherosclerosis of [place] coronary artery (Acute) Stent RCA 2006 Hyperlipidemia (Chronic) Hypertension (Chronic) CAD (coronary artery disease) (Chronic) S/P stent 2004 Peripheral vascular disease (Chronic) S/P right SFA antioplasty an sstenting, 2003. Left [place] to [place] popliteal bypass with [place], 2003. Bypass Left Stent Right 2005 left BKA 08/28 Medical History Venous insufficiency of leg Atrial fibrillation Fracture, femur closed, shaft (05/13/22) (L) Carpal tunnel syndrome (05/16/09) Hypertension History of tobacco abuse Quit 2004 Surgical History Status post amputation of lesser toe of right foot History of left hip replacement History of total replacement of left shoulder joint 02/08/23. -hb S/P peripheral artery angioplasty with stent placement Status post below-knee amputation of left lower extremity (2012) History of total right hip replacement (08/03/20) Hx of tubal ligation History of carpal tunnel release Bilaterally Family History Mother , 74 Neoplasm UTERINE Osteoporosis Uterine cancer Lung cancer Father Lung cancer Sister Neoplasm MELANOMA Breast cancer Sister No problems noted. Sister Skin cancer Brother No problems noted. Son Alcohol abuse Depression Maternal Grandfather Stomach cancer Paternal Grandfather No problems noted. Maternal Grandmother No problems noted. Paternal Grandmother No problems noted. Daughter Depression Social History Smoking/Tobacco Use Status: Former Tobacco Use tobacco type: cigarettes Quit Date: 09/16/04 Tobacco: How many years used: 37 Second Hand Exposure: Yes Smoking risk assessment performed?: Yes Alcohol Intake: current Alcohol Intake frequency: a few times a month Alcohol type: beer and hard liquor Drug use: Never Substance use type: does not use Details: Patient drank a alcoholic beverage yesterday (06/23) Caregiver/Support person: No Household members: none Housing: house Do you need help understanding health information?: Rarely current occupation: [employer] Pets and animals: Yes Pets and animals: cat(s) Sexually active: No Do you think of yourself as: straight/heterosexual Current gender identity: female What is your relationship status?: How often do you talk on the phone with friends or family?: three or more times per week How often do you get together with friends or relatives?: decline to answer How often do you attend faith or zoroastrianism services?: 1-3 times per year Do you belong to any clubs or organized social groups?: no Panel score (0-1 are the most socially isolated patients): 2 What type of physical activity do you participate in: none Carmelina/Zoroastrian: Zoroastrian Special carmelina needs: No Seatbelt use: always Helmet use: Yes Helmet use: always Drive intox 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 road train driver: No Do you feel safe at home: Yes Do you feel safe in your relationship?: Yes Would you like helpful sources: No Meds Allergies and Home Medications Allergies Allergy/AdvReac Type Severity Reaction Status Date / Time clopidogrel Allergy Skin Rash Verified 11/28/24 13:56 oxybutynin AdvReac Intermediate Reflex Verified 11/28/24 13:56 propoxyphene AdvReac Nausea Verified 11/28/24 13:56 Home Medications ?Medication ?Instructions ?Recorded ?Confirmed ?Type blood-glucose meter (Accu-Chek #1 ea 03/17/20 11/28/24 Rx Guide Glucose Meter) insulin syringe-needle U-100 1 mL #180 ea 12/06/20 11/28/24 Rx 31 gauge x 5/16 (BD Insulin Syringe Ultra-Fine) folic acid 1 mg tablet 1 mg PO DAILY 06/05/22 11/28/24 History blood sugar diagnostic (Accu-Chek #300 strips 11/24/22 11/28/24 Rx Guide test strips) blood-glucose meter,continuous #1 ea 01/02/23 11/28/24 Rx (Dexcom G7 Pickling Operator) magnesium 250 mg tablet 500 mg PO QHS 07/01/23 11/28/24 History carvedilol 12.5 mg tablet 12.5 mg PO BID 12/23/23 11/28/24 History atorvastatin 40 mg tablet 40 mg PO DAILY #90 tab-caps 01/13/24 11/28/24 Rx chlorthalidone 50 mg tablet 100 mg (2 x 50 mg) PO DAILY #180 01/13/24 11/28/24 Rx tabs duloxetine 30 mg capsule,delayed 30 mg PO DAILY #90 caps 01/13/24 11/28/24 Rx release duloxetine 60 mg capsule,delayed 60 mg PO DAILY #90 caps 01/13/24 11/28/24 Rx release furosemide 20 mg tablet 20 mg PO DAILY #90 tabs 01/13/24 11/28/24 Rx metformin 500 mg tablet 500 mg PO BID #180 tabs 01/13/24 11/28/24 Rx spironolactone 25 mg tablet 25 mg PO DAILY #90 tabs 01/13/24 11/28/24 Rx (Aldactone) tirzepatide 2.5 mg/0.5 mL 2.5 mg (0.5 mL) subcut QWEEK 4 02/25/24 11/28/24 Rx subcutaneous pen injector weeks #2 mL (Mounjaro) potassium chloride 10 mEq 10 meq PO DAILY #90 tabs 03/11/24 11/28/24 Rx tablet,extended release vibegron 75 mg tablet 75 mg PO DAILY #90 tabs 03/11/24 11/28/24 Rx hydroxyurea 500 mg capsule 500 - 1,000 mg (1 - 2 x 500 mg) PO 04/08/24 11/28/24 Rx DAILY #115 caps ibuprofen 600 mg tablet 600 mg PO TID PRN pain #90 tabs 06/24/24 11/28/24 Rx aspirin 81 mg tablet,delayed 81 mg PO DAILY 08/06/24 11/28/24 History release (Adult Aspirin Regimen) losartan 100 mg tablet 100 mg PO HS 09/06/24 11/28/24 History ferrous sulfate 325 mg (65 mg 325 mg PO DAILY #30 tabs 09/07/24 11/28/24 Rx iron) tablet ropinirole 8 mg tablet,extended 8 mg PO HS 09/17/24 11/28/24 History release 24 hr apixaban 2.5 mg tablet 2.5 mg PO BID #180 tabs 10/06/24 11/28/24 Rx blood-glucose sensor (Dexcom G7 #1 ea 10/06/24 11/28/24 Rx Sensor device) fentanyl 25 mcg/hr transdermal 1 patch transdermal Q72H #5 ea 10/06/24 11/28/24 Rx patch cyclobenzaprine 5 mg tablet 5 mg PO QHS #7 tabs 10/09/24 11/28/24 Rx amoxicillin 875 mg-potassium 1 tab PO BID #14 tabs 11/12/24 11/28/24 Rx clavulanate 125 mg tablet insulin glargine 100 unit/mL (3 100 unit subcut QAM #90 mL 11/13/24 11/28/24 Rx mL) subcutaneous pen (Lantus Solostar U-100 Insulin) lancets #300 ea 11/13/24 11/28/24 Rx Exam Narrative Exam Narrative: Elderly female of stated age no acute distress head is atraumatic oral mucosas moist skin is pink warm dry well-perfused respirations are even and unlabored abdomen is round soft nontender extremities below the knee amputation on the left stump well-healed on the right no peripheral edema 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 no palpable pedal pulse reports painful. Neurologic she is awake alert oriented no focal deficits psychiatric appropriate mood and affect Results Labs 11/29/24 06:14 11/29/24 06:14 Labs: Laboratory Results - last 24 hr 11/28/24 11/28/24 15:30 16:20 WBC 13.65 H RBC 2.29 L Hgb 7.0 L* Hct 23.7 L MCV 104 H MCH 30.6 MCHC 29.5 L RDW 20.0 H Plt Count 434 H MPV 10.0 Immature Gran % 1.5 Neutrophils % 88.7 Lymphocytes % 5.5 Monocytes % 3.7 Eosinophils % 0.3 Basophils % 0.3 Nucleated RBC % 0.0 Absolute Neutrophils 12.11 H Absolute Lymphocytes 0.75 L Absolute Monocytes 0.51 Absolute Eosinophils 0.04 Absolute Basophils 0.04 PT 10.4 INR 1.0 APTT 26.1 Sodium 143 Potassium 5.7 H Chloride 109 H Carbon Dioxide 25.8 Anion Gap 8.2 BUN 88 H* Creatinine 2.5 H Est GFR (CKD-EPI 2020) 19.81 Glucose 133 H Calcium 8.8 Magnesium 1.8 Total Bilirubin 0.3 AST 10 L ALT 20 Alkaline Phosphatase 78 Troponin I 7 NT-Pro-B Natriuret Pep 428 H Total Protein 6.6 Albumin 3.0 L Crossmatch See Detail Last Vital Signs Temp 36.3 C L 11/28/24 13:58 Pulse 67 11/28/24 16:15 Resp 18 11/28/24 14:09 BP 110/47 L 11/28/24 16:15 Pulse Ox 95 11/28/24 13:58 PAWSS Have you Been Recently Intoxicated or Drunk Within the Last 30 days?: No Have you Ever Experienced Previous Episodes of Alcohol Withdrawal?: No Have you ever Experienced Withdrawal Seizures?: No Have you ever Experienced Delirium Tremens(DT)s?: No Have you ever undergone Alcohol Rehabilitation Treatment (i.e, inpt ot outpatient treatment programs)?: No Have you ever Experienced Blackouts?: No Have you ever Combined Alcohol with other Downers within the last 90 days?: No Have you ever Combined Alcohol with any other Substance of Abuse during the last 90 days?: No Positive Blood Alcohol level on Presentation? [PCS.BAL]: No Evidence of Increased Autonomic Activity (i.e. HR>120, tremor, sweating, agitation, nausea)?: No Result: 0 Time Spent Time spent with Patient: 55-74 minutes Time was spent: preparing to see the patient(eg.review tests), obtaining and/or reviewing separately otained hiistory, ordering medications,tests, procedures, indepentently interpreting results and counseling the patient
[2024-11-28 17:20] LABS: Reticulocyte 4.6 % (0.5-2.4)
[2024-11-28 17:51] LABS: LDH 172 U/L (81-234)
--- NOTE | 2024-11-28 17:55 | W.PC.ACHO ---
Registration Status: Primary Language: Preferred Language: ED Information & Data Chief Complaint GenMedical 11/28/24 14:37 Triage Note Patient complaining of 11/28/24 13:54 feeling off balance, sleepy, foggy since 1100 today Medical / Surgical History Venous insufficiency of leg Atrial fibrillation Fracture, femur closed, shaft (05/13/22) Carpal tunnel syndrome (05/16/09) Hypertension History of tobacco abuse (Last Reviewed 11/24/24 @ 16:18 by Chely Fernandez NP) Status post amputation of lesser toe of right foot History of left hip replacement History of total replacement of left shoulder joint S/P peripheral artery angioplasty with stent placement Status post below-knee amputation of left lower extremity (2012) History of total right hip replacement (08/03/20) Hx of tubal ligation History of carpal tunnel release Most Recent Vital Signs Temperature 36.5 C 11/28/24 17:44 Pulse 62 11/28/24 17:45 Pulse 65 11/28/24 17:45 Respiratory Rate 14 11/28/24 17:45 Respiratory Effort Normal 11/28/24 14:09 Respiratory Depth Normal 11/28/24 14:09 Respiratory Pattern Normal 11/28/24 14:09 Blood Pressure 128/29 L 11/28/24 17:45 Blood Pressure Mean 67 11/28/24 17:45 Pulse Oximetry 97 11/28/24 17:45 Oxygen Delivery Method Room Air 11/28/24 17:44 Oxygen Flow Rate 0 11/28/24 17:44 Allergies clopidogrel Allergy (Verified 11/28/24 13:56) Skin Rash oxybutynin Adverse Reaction (Intermediate, Verified 11/28/24 13:56) Reflex Esophageal burning, reflux. Symptoms remitted after 4 days d/c. propoxyphene Adverse Reaction (Verified 11/28/24 13:56) Nausea Precautions Isolation Standard precaution 11/28/24 13:59 IV IV Catheter Type [Left Diffusic Antecubital] IV Catheter Gauge [Left 20 Antecubital] Diagnostics 11/28/24 11/28/24 11/28/24 Range/Units 17:12 16:20 15:30 WBC 13.65 H (4.4-10.8) 10^3/uL RBC 2.29 L (3.93-5.22) 10^6/uL Hgb 7.0 L* (11.2-15.7) g/dL Hct 23.7 L (36.0-46.0) % MCV 104 H (80-95) fL MCH 30.6 (27.0-33.0) pg MCHC 29.5 L (32.0-36.0) % RDW 20.0 H (11.7-14.6) % Plt Count 434 H (130-400) 10^3/uL MPV 10.0 (8.0-11.0) fL Reticulocyte % (Auto) 4.6 H (0.5-2.4) % Immature Gran % 1.5 % Neutrophils % 88.7 % Lymphocytes % 5.5 % Monocytes % 3.7 % Eosinophils % 0.3 % Basophils % 0.3 % Nucleated RBC % 0.0 (0.0-0.3) % Absolute Neutrophils 12.11 H (1.2-6.7) 10^3/uL Absolute Lymphocytes 0.75 L (1.2-3.4) 10^3/uL Absolute Monocytes 0.51 (0.1-0.8) 10^3/uL Absolute Eosinophils 0.04 (0.0-0.7) 10^3/uL Absolute Basophils 0.04 (0.0-0.2) 10^3/uL Haptoglobin Pending PT 10.4 (9.1-11.1) sec INR 1.0 (0.9-1.1) APTT 26.1 (20.6-30.2) sec Sodium 143 (136-145) mmol/L Potassium 5.7 H (3.5-5.1) mmol/L Chloride 109 H (98-107) mmol/L Carbon Dioxide 25.8 (21.0-32.0) mmol/L Anion Gap 8.2 (3-11) mmol/L BUN 88 H* (7-18) mg/dL Creatinine 2.5 H (0.55-1.02) mg/dL Est GFR (CKD-EPI 2020) 19.81 (mL/min/1.73m2) Glucose 133 H (74-106) mg/dL Calcium 8.8 (8.5-10.1) mg/dL Magnesium 1.8 (1.8-2.4) mg/dL Total Bilirubin 0.3 (0.2-1.0) mg/dL AST 10 L (15-37) U/L ALT 20 (14-59) U/L Alkaline Phosphatase 78 (46-116) U/L Lactate Dehydrogenase Pending Troponin I 7 (<or=51) ng/L NT-Pro-B Natriuret Pep 428 H (<300) pg/mL Total Protein 6.6 (6.4-8.2) g/dL Albumin 3.0 L (3.4-5.0) g/dL Pathology Consult Spec Pending ABO/Rh A Positive Antibody Screen NEGATIVE Direct Antiglob Test Negative Crossmatch See Detail Intake and Output - 24 Hour Total 11/28/24 13:51 thru 11/28/24 15:32 Intake Total 10 Balance 10 Weight 105.233 kg Intake: IV 10 Falls Risk Assessment History of Falls No History 11/28/24 14:09 Contributing Factors No Factors 11/28/24 14:09 Ambulatory Aids Uses ambulatory device 11/28/24 14:09 Tubes/Lines None 11/28/24 14:09 Gait Evaluation No gait disturbance 11/28/24 14:09 Cognition No cognitive impairment 11/28/24 14:09 Fall Total Score 15 11/28/24 14:09 Level of Risk Standard/Low Risk 11/28/24 14:09 Problems (Last Reviewed 11/24/24 @ 16:18 by Chely Fernandez NP) Hyperkalemia (Acute) Azotemia (Acute) Acute kidney injury (Acute) Anemia (Chronic) Bekkm-ja-owvlheq kidney injury (Acute) Symptomatic anemia (Acute) Chronic pain (Chronic) CAD (coronary artery disease) (Chronic) Lipodermatosclerosis (Acute) Essential thrombocythemia (Acute) Type 2 diabetes mellitus with circulatory disorder, with long-term current use of insulin (Acute) RLS (restless legs syndrome) (Chronic) Hyperlipidemia (Acute 01/14/14) Essential hypertension (Acute 08/18/13) Peripheral vascular disease (Chronic) v v v v v v v v v Sending and/or Receiving Nurses: Please use comment section below to note any information pertinent to the patient hand-off not included above. Information / Comments: Report received from: Chasity RN @ [phone] (Emergency Dept.)
[2024-11-28 18:50] LABS: Anisocytosis 1+; Basophilic Stippling Present; Diff Comment RBC Morph Reviewed; Hypochromasia 1+
[2024-11-28] MEDS: fentaNYL 25 MCG PATCH TD (19:59)
[2024-11-28] MEDS: Magnesium Oxide 400 MG TAB 500 MG PO (20:00)
[2024-11-28] MEDS: Cyclobenzaprine 10 MG TAB 5 MG PO (20:00)
[2024-11-28] MEDS: Carvedilol 12.5 MG TAB PO (20:00)
[2024-11-29] VITALS (9 sets, daily range): BP systolic 96–123; BP diastolic 35–80; PULSE 69–74; RESP 16–18; TEMP 36.5–37.2; O2SAT 94–98
[2024-11-29 02:06] LABS: Bilirubin Negative (Negative); Blood Negative (Negative); Clarity Clear (Clear); Glucose Negative (Negative); Ketones Negative (Negative); Leukocyte Esterase Negative (Negative); Nitrite Negative (Negative); Specific Gravity >= 1.030 (1.005-1.025); Urobilinogen 0.2 mg/dL (Up to 0.2)
[2024-11-29 06:43] LABS: Anion Gap 8.3 mmol/L (3-11); CO2 23.7 mmol/L (21.0-32.0); Calcium 8.5 mg/dL (8.5-10.1); Chloride 107 mmol/L (98-107); Estimated GFR 25.89 (mL/min/1.73m2); Glucose 130 mg/dL (74-106); Potassium 5.4 mmol/L (3.5-5.1); Sodium 139 mmol/L (136-145)
[2024-11-29 06:45] LABS: Abs Immature Grans 0.12 10^3/uL (0.0-0.06); Absolute Basophil Count 0.05 10^3/uL (0.0-0.2); Absolute Eosinophil Count 0.06 10^3/uL (0.0-0.7); Absolute Lymphocyte Count 0.95 10^3/uL (1.2-3.4); Absolute Monocyte Count 0.53 10^3/uL (0.1-0.8); Absolute Neutrophil Count 11.17 10^3/uL (1.2-6.7); Basophils % 0.4 %; Eosinophils % 0.5 %; HCT 23.7 % (36.0-46.0); HGB 7.3 g/dL (11.2-15.7); Immature Grans % 0.9 %; Lymphocytes % 7.4 %; MCH 30.2 pg (27.0-33.0); MCHC 30.8 % (32.0-36.0); MCV 98 fL (80-95); MPV 10.7 fL (8.0-11.0); Monocytes % 4.1 %; Neutrophils % 86.7 %; Platelet Count 405 10^3/uL (130-400); RBC 2.42 10^6/uL (3.93-5.22); RDW 20.9 % (11.7-14.6); RDW-SD 73.4 fL; WBC 12.88 10^3/uL (4.4-10.8)
[2024-11-29 06:47] LABS: BUN 81 mg/dL (7-18)
[2024-11-29 06:59] LABS: Anisocytosis 2+; Diff Comment RBC Morph Reviewed; Polychromasia Present
[2024-11-29] MEDS: Atorvastatin 40 MG TAB PO (08:02)
[2024-11-29] MEDS: Carvedilol 12.5 MG TAB PO ×2 (08:03→19:49)
[2024-11-29] MEDS: DULoxetine 30 MG CAP PO (08:03)
[2024-11-29] MEDS: DULoxetine 30 MG CAP 60 MG PO (08:06)
[2024-11-29] MEDS: Ferrous Sulfate 325 MG TAB PO (08:07)
[2024-11-29] MEDS: Folic Acid 1 MG TAB PO (08:07)
[2024-11-29] MEDS: Insulin Aspart 300 UNITS/3 ML PEN SC ×2 (08:12→12:04)
[2024-11-29] MEDS: Insulin Glargine 300 UNITS/3 ML PEN 80 UNITS SC (08:14)
[2024-11-29] MEDS: Hydroxyurea 500 MG CAP 1000 MG PO (08:24)
--- NOTE | 2024-11-29 08:45 | INITIAL_ITS ---
Date of service: 11/29/24 Time of Service: 08:45 Care Management Initial Assmt Initial Assessment Reason for Hospitalization: anemia Functional Status/Living Situation Patient Presentation: Emilia presented to the ER yesterday afternoon with reports of generalized weakness, lightheadedness, and just generally not feeling well. She was recently transfused 1u PRBC on 11/24 due to epitaxis. She has had no further bleeding since, but stated that she has never felt like this before. Hgb only 7.0, which was less than after she was transfused on 11/24. Emilia was transfused 1U PRBC yesterday, and is going to receive another unit today. Emilia was sitting up on the edge of the bed when CM met with her today. She remembered CM from her last stay. She was very pleasant. She looked tired, and stated she felt tired. She said she has never really felt like this before. Her brain is in a fog, almost as if she is not present, but she can hold on a conversation and was not confused. She is hopeful that the second unit of blood will help, but she would like to know why this keeps happening to her. Emilia stated that she is unsteady on her feet. Her right leg should be her dominant leg, as the left is a BKA, but she needs has a wound on her right leg, as well as her 4th toe on that right foot being amputated, and her left has become dominant. PT consult was requested from provider by MATTHEW. Town of Residence: [place] Resides with: Child (Son, Ki and granddaughter, Rachel) Significant Other/Family: Local (Rachel Emerson, and daughter Leslye) Natural Supports: family Employment Status: Retired Instrumental Activities of Daily Living (ADLs): Independent Medications Medication Management: No Issues/Barriers identified Physical Functioning/Mobility Assistive Device: prosthetic leg. Emilia uses a cane and sometimes a walker Advance Directives Advance Directives: Do you have an Advance Directive: Y 01/15/14 13:08 AD On File at [facility]: Y 11/14/12 10:42 Date Asked 12/21/10 11/28/24 13:57 AD Date Reviewed 11/28/24 11/28/24 13:57 COLST On File at [facility] No 11/12/24 10:48 COLST Date Scanned Code Status Resuscitation Status Full Code Insurance Coverage/Financial Issues Insurance: Medicare and BC/BS [place] Care Team Visit Care Team Role Provider Type Apryl Ovalle NP NURSE PRACTITIONER Gui Graham MD Primary Care Provider [facility] STAFF PHYSICIAN Fawn Funk, NAVDEEP, CDCES Other Providers AIR AND HYDRONIC BALANCING TECHNICIAN Bryan Coleman RDN Other Providers AIR AND HYDRONIC BALANCING TECHNICIAN Leann Rayo MD Emergency Provider [facility] STAFF PHYSICIAN Mahin Espinal MD Admit Provider [facility] STAFF PHYSICIAN Attending Provider Other: Emilia has an extensive team of specialists including dermatology, vascular, nephrology, gynecology and gyno oncology. Discharge Potential Discharge Needs: PCP F/U Appt (has appt on 12/15) and Other (ENT - has appt on 12/01) Anticipated Barriers to Discharge: None Identified Patient/Family Education Needs: Review discharge instructions, discuss Ask Me Three Transportation: Private vehicle Plan: Anticipate that Emilia will be discharged with no new services. She will f/u with her PCP on 12/15 and with ENT on 12/01. She will continue per her plan of care and transport home in a private vehicle. CM will continue to monitor and to update the plan as needed. Social Determinants of Health Screening Social Determinants of Health last assessed: 11/29/24 Will the Patient Participate in the Screening?: Yes Do you worry about having a steady place to live?: no Problems where you live: no known problems In the past 12 months, have you had to go without electric, gas, oil or water in your home?: no Have you or anyone in your house had to go without enough food to eat?: no Has lack of transportation kept you from medical appointments or from doing things needed for daily living?: no Has anyone in your life made you feel unsafe or unsupported?: no How hard is it for you to pay for the very basics like food, housing, medical care, and heating? Would you say it is:: Not hard at all Do you want help finding or keeping work or a job?: I do not need or want help If for any reason you need help with day-to-day activities such as bathing, preparing meals, shopping, managing finances, etc., do you get the help you need?: I don?t need any help How often do you feel lonely or isolated from those around you?: Always Do you speak a language other than Vietnamese at home?: Yes Does the patient want assistance with any of the above?: Yes Social Determinants of Health Comments(SDOH Details): pt is currently in the process of trying to find senior housing, having trouble recently Health Related Social Needs Health related social needs: feeling lonely/isolated (Z60.8) and education (Z55.6) PFSH All Active Problems (Updated 11/28/24 @ 16:49 by Leann Rayo MD) Hyperkalemia (Acute) Azotemia (Acute) Acute kidney injury (Acute) Anemia (Chronic) Abjus-gf-gmnlmxp kidney injury (Acute) Anemia (Chronic) Acute sinus infection (Acute) Epistaxis (Acute) Symptomatic anemia (Acute) Paroxysmal A-fib (Acute) dx in hospital 05/2022 Chest pain (Acute) Chronic pain (Chronic) CAD (coronary artery disease) (Chronic) KEVIN (acute kidney injury) (Acute) Acute confusion (Acute) Severe anemia (Acute) Multiple open wounds of right lower leg (Acute) Chronic pain of right lower extremity (Acute) Bilateral carpal tunnel syndrome (Acute) B/L ECTR: 06/24/2024 Ulnar neuropathy of both upper extremities (Acute) Renal lesion (Acute) Phlegm in throat (Acute) Hand numbness (Acute) Lipodermatosclerosis (Acute) Bladder leak (Acute) Weight gain (Acute) Rash (Acute) Change in bowel habits (Acute) 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 Harvey. Osteoarthritis of right hip (Chronic) Injection under fluoroscopy: 10/01/2019 RLS (restless legs syndrome) (Chronic) Primary osteoarthritis of right knee (Chronic) Chronic pain of left lower extremity (Chronic) await tongue lining stitcher recommendations Polyp of colon (Acute 09/15/09) 09/25 COLONOSCOPY: ONE TUBULAR ADENOMA AND FOUR HYPERPLASTIC POLYPS. ALEX (obstructive sleep apnea) (Chronic 03/11/18) not on CPAP due to bedroom size Hyperlipidemia (Acute 01/14/14) History of tobacco use (Acute) Essential hypertension (Acute 08/18/13) Cataracts, both eyes (Acute) 11/11/15 OPTICAL EXPRESSIONS; EARLY CATARACTS B12 deficiency (Acute 04/08/15) Atherosclerosis of [place] coronary artery (Acute) Stent RCA 2006 Hyperlipidemia (Chronic) Hypertension (Chronic) CAD (coronary artery disease) (Chronic) S/P stent 2004 Peripheral vascular disease (Chronic) S/P right SFA antioplasty an sstenting, 2003. Left DVA to [place] popliteal bypass with [place], 2003. Bypass Left Stent Right 2005 left BKA 08/28 Medical History Venous insufficiency of leg Atrial fibrillation Fracture, femur closed, shaft (05/13/22) (L) Carpal tunnel syndrome (05/16/09) Hypertension History of tobacco abuse Quit 2004 Surgical History Status post amputation of lesser toe of right foot History of left hip replacement History of total replacement of left shoulder joint 02/08/23. -hb S/P peripheral artery angioplasty with stent placement Status post below-knee amputation of left lower extremity (2012) History of total right hip replacement (08/03/20) Hx of tubal ligation History of carpal tunnel release Bilaterally Family History Mother , 74 Neoplasm UTERINE Osteoporosis Uterine cancer Lung cancer Father Lung cancer Sister Neoplasm MELANOMA Breast cancer Sister No problems noted. Sister Skin cancer Brother No problems noted. Son Alcohol abuse Depression Maternal Grandfather Stomach cancer Paternal Grandfather No problems noted. Maternal Grandmother No problems noted. Paternal Grandmother No problems noted. Daughter Depression Social History Smoking/Tobacco Use Status: Former Tobacco Use tobacco type: cigarettes Quit Date: 09/16/04 Tobacco: How many years used: 37 Second Hand Exposure: Yes Smoking risk assessment performed?: Yes Alcohol Intake: current Alcohol Intake frequency: a few times a month Alcohol type: beer and hard liquor Drug use: Never Substance use type: does not use Details: Patient drank a alcoholic beverage yesterday (06/23) Caregiver/Support person: No Household members: none Housing: house Do you need help understanding health information?: Rarely current occupation: [employer] Pets and animals: Yes Pets and animals: cat(s) Sexually active: No Do you think of yourself as: straight/heterosexual Current gender identity: female What is your relationship status?: How often do you talk on the phone with friends or family?: three or more times per week How often do you get together with friends or relatives?: decline to answer How often do you attend scientologist or baptism services?: 1-3 times per year Do you belong to any clubs or organized social groups?: no Panel score (0-1 are the most socially isolated patients): 2 What type of physical activity do you participate in: none Carmelina/Spiritism: Islam Special carmelina needs: No Seatbelt use: always Helmet use: Yes Helmet use: always Drive intox 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 fleet driver: No Do you feel safe at home: Yes Do you feel safe in your relationship?: Yes Would you like helpful sources: No Readmission Within the Past 30 Days Yes or No: No
--- NOTE | 2024-11-29 10:46 | PHA.REVIEW2 ---
Pharmacy Admission Review Admission Clinical Review Admission Pharmacy Review: Hyperkalemia (Acute) Azotemia (Acute) Acute kidney injury (Acute) Rqmzu-br-yzhnhvd kidney injury (Acute) Symptomatic anemia (Acute) Lipodermatosclerosis (Acute) Essential thrombocythemia (Acute) Type 2 diabetes mellitus with circulatory disorder, with long-term current use of insulin (Acute) Hyperlipidemia (Acute 01/14/14) Essential hypertension (Acute 08/18/13) clopidogrel Allergy (Verified 11/28/24 13:56) Skin Rash oxybutynin Adverse Reaction (Intermediate, Verified 11/28/24 13:56) Reflex propoxyphene Adverse Reaction (Verified 11/28/24 13:56) Nausea Resuscitation Status Full Code Height 5 ft 10 in Weight 105.223 kg Pharmacy Admission Review Renal Dosing Renal Dosing: BUN 81 mg/dL (7-18) H* 11/29/24 06:14 Creatinine 2.0 mg/dL (0.55-1.02) H 11/29/24 06:14 Medications needing adjustments: Reviewed (CrCl 32.9 mL/min, BUN decreased from 88 and SCr decreased from 2.5) List of meds needing interventions: Current medications are okay Anticoagulation Anticoagulation: Hgb 7.3 g/dL (11.2-15.7) L 11/29/24 06:14 Hct 23.7 % (36.0-46.0) L 11/29/24 06:14 Plt Count 405 10^3/uL (130-400) H 11/29/24 06:14 INR 1.0 (0.9-1.1) 11/28/24 15:30 Creatinine 2.0 mg/dL (0.55-1.02) H 11/29/24 06:14 DVT Prophylaxis: Reviewed (takes Eliquis at home - on hold due to anemia, Hgb increased from 7) Opiate Usage Evaluate Pain Scale/Pains Meds: Reviewed (Fentanyl patch 25mcg ) Scheduled Bowel Reg ordered if on Opiates?: No Relevant Labs Relevant Labs: Sodium 139 mmol/L (136-145) 11/29/24 06:14 Potassium 5.4 mmol/L (3.5-5.1) H 11/29/24 06:14 Chloride 107 mmol/L (98-107) 11/29/24 06:14 Magnesium 1.8 mg/dL (1.8-2.4) 11/28/24 15:30 Electrolytes, C-Reactive P, ESR: Reviewed (K 5.4 - decreased from 5.7) DM Control DM Control: Glucose 130 mg/dL (74-106) H 11/29/24 06:14 Finger Stick Blood Glucose 178 0814 Finger Stick Blood Glucose 178 0812 Finger Stick Blood Glucose 128 0723 Finger Stick Blood Glucose 128 0723 DM Control: Reviewed Insulin Dosing, Diabetic Medication: Has order for SS insulin and glargine 80 units daily Cardiac Review Cardiac Review: Troponin I 7 ng/L (<or=51) 11/28/24 15:30 NT-Pro-B Natriuret Pep 428 pg/mL (<300) H 11/28/24 15:30 BP, HR, EF%: Reviewed (HR and BP WNL) List meds needing interventions: Has order for carvedilol 12.5mg PO BID QTc Review QTc: Reviewed (435 from 11/28/24) IV to PO Switch IV Medications: Reviewed Home Meds Home Med List reviewed: Intervened Relevent Home Meds Not ordered & why?: Eliquis (on hold per H+P), metformin (on hold per H+P), losartan (on hold per H+P), chlorthalidone (on hold per H+P), furosemide (on hold per H+P), spironolactone (on hold per H+P), Mounjaro (on hold per H+P), aspirin (on hold per H+P), ibuprofen (PRN), potassium (H - hyperkalemia) Asked nurse to verify hydroxyurea dose. Order was put in for 500mg daily but home med list stated 500mg Saturday through Saturday and 1000mg on Sundays. Patient confirmed they take 1000mg on Sundays. I changed order to match home med list. Changed ropinirole and vibegron to patients own orders (non formulary). Per nurse patient is seeing if these can be brought in from home. Current Meds Current Medication Order Review: Reviewed Pharmacy Antibiotic Review Relevant Labs: Relevant Labs 11/28/24 17:12 Lactate Dehydrogenase 172
--- NOTE | 2024-11-29 13:17 | W.PM.PROGNOT ---
Date of Service Date of service: 11/29/24 Time of Service: 13:17 Assessment and Plan Assessment and plan (1) Symptomatic anemia: Status: Acute Assessment and plan: hemoglobin up to 7.3 from 7.0 after one unit of PRBC Ordered for another 1 unit of packed red blood cells continue to hold Anticoagulation and antiplatelet no evidence of active acute bleeding, repeat CBC in am macrocytic Iron level 10 on August 2024 Will continue oral iron supplementation elevate for hemolytic anemia in setting of hydrea use, labs added present prior to recent blood transfusions pathologist review states she had upper and colonoscopy at [facility] within the past year with no issues reported. obtain report for review. (2) Epistaxis: Status: Resolved Assessment and plan: -not currently active outpatient ENT appointment on December 01 (3) Cxkzv-ql-llvlzvk kidney injury: Status: Acute Assessment and plan: Creatinine improved to 2.0 today from 2.5 on admission which is above baseline of 1.7-1.8 Will hold diuretics and nephrotoxic drugs for now including metformin losartan chlorthalidone Lasix and spironolactone Avoid nephrotoxic drugs and renally dose Consider gentle IV hydration if needed after blood transfusion (4) Hyperkalemia: Status: Acute Assessment and plan: in setting of KEVIN, potassium supplementation and spironalactone placed on hold consider lasix after blood transfusion follow closely (5) RLS (restless legs syndrome): Status: Chronic Assessment and plan: -continue home ropinerole (6) Hyperlipidemia: Status: Acute Assessment and plan: -continue home statin (7) Essential hypertension: Status: Acute Assessment and plan: Will hold home spironolactone, losartan, lasix, chlorthalidone in setting of KEVIN continue carvedilol Monitor blood pressure closely (8) CAD (coronary artery disease): Status: Chronic Assessment and plan: No chest pain RCA stent 2006 vascular -holding ASA for now. continue statin and carvedilol (9) Chronic pain: Status: Chronic Assessment and plan: -From lipodermatosclerosis -continue home fentanyl patch Followed by [facility] (10) Type 2 diabetes mellitus with circulatory disorder, with long-term current use of insulin: Status: Acute Assessment and plan: Hemoglobin A1c in June 2024 6.1 Continue diabetic diet Will place metformin on hold in the setting of acute on chronic kidney injury Continue Tresiba, or convert to Lantus if unavailable Check blood sugars before meals and at bedtime Mounjaro will be placed on hold while hospitalized (11) Peripheral vascular disease: Status: Chronic Assessment and plan: Status post right SFA angioplasty and stenting in 2003 Left popliteal bypass 2004 Stent right 2006 BKA left 08/2013 On apixaban which will be placed on hold No compression stockings (12) Essential thrombocythemia: Status: Acute Assessment and plan: Followed by [facility] continue Hydrea (13) Lipodermatosclerosis: Status: Acute Assessment and plan: Followed by [facility] continue current pain management including fentanyl patch (14) Discharge planning issues: Status: Resolved Assessment and plan: No pharmacologic DVT prophylaxis at this time secondary to acute anemia thought to be secondary to acute bleeding. Has below the knee amputation on the right secondary to severe peripheral artery disease. No compression to left. anticipated discharge to home once medically stable discussed with Dr. Domingo Subjective Subjective Patient reports: no new complaints and afebrile; denies nausea or shortness of breath Exam Narrative Exam Narrative: Elderly female of stated age no acute distress head is atraumatic oral mucosas moist skin is pink warm dry well-perfused respirations are even and unlabored abdomen is round soft nontender extremities below the knee amputation on the left stump well-healed on the right no peripheral edema 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 no palpable pedal pulse reports painful. Neurologic she is awake alert oriented no focal deficits psychiatric appropriate mood and affect Objective Last Vital Signs Temp 37.1 C 11/29/24 12:55 Pulse 70 11/29/24 12:55 Resp 18 11/29/24 12:55 BP 97/35 L 11/29/24 12:55 Pulse Ox 97 11/29/24 12:55 Laboratory Results - last 24 hr 11/28/24 11/28/24 11/28/24 15:30 16:20 17:12 WBC 13.65 H RBC 2.29 L Hgb 7.0 L* Hct 23.7 L MCV 104 H MCH 30.6 MCHC 29.5 L RDW 20.0 H Plt Count 434 H MPV 10.0 Reticulocyte % (Auto) 4.6 H Immature Gran % 1.5 Neutrophils % 88.7 Lymphocytes % 5.5 Monocytes % 3.7 Eosinophils % 0.3 Basophils % 0.3 Nucleated RBC % 0.0 Absolute Neutrophils 12.11 H Absolute Lymphocytes 0.75 L Absolute Monocytes 0.51 Absolute Eosinophils 0.04 Absolute Basophils 0.04 RBC Morphology See Below Polychromasia Hypochromasia 1+ Basophilic Stippling Present Anisocytosis 1+ PT 10.4 INR 1.0 APTT 26.1 Sodium 143 Potassium 5.7 H Chloride 109 H Carbon Dioxide 25.8 Anion Gap 8.2 BUN 88 H* Creatinine 2.5 H Est GFR (CKD-EPI 2020) 19.81 Glucose 133 H Calcium 8.8 Magnesium 1.8 Total Bilirubin 0.3 AST 10 L ALT 20 Alkaline Phosphatase 78 Lactate Dehydrogenase 172 Troponin I 7 NT-Pro-B Natriuret Pep 428 H Total Protein 6.6 Albumin 3.0 L Urine Color Urine Clarity Urine pH Ur Specific [place] Urine Protein Urine Ketones Urine Blood Urine Nitrite Urine Bilirubin Urine Urobilinogen Ur Leukocyte Esterase Urine Glucose ABO/Rh A Positive Antibody Screen NEGATIVE Direct Antiglob Test Negative Crossmatch See Detail 11/29/24 11/29/24 01:48 06:14 WBC 12.88 H RBC 2.42 L Hgb 7.3 L Hct 23.7 L MCV 98 H D MCH 30.2 MCHC 30.8 L RDW 20.9 H Plt Count 405 H MPV 10.7 Reticulocyte % (Auto) Immature Gran % 0.9 Neutrophils % 86.7 Lymphocytes % 7.4 Monocytes % 4.1 Eosinophils % 0.5 Basophils % 0.4 Nucleated RBC % 0.0 Absolute Neutrophils 11.17 H Absolute Lymphocytes 0.95 L Absolute Monocytes 0.53 Absolute Eosinophils 0.06 Absolute Basophils 0.05 RBC Morphology See Below Polychromasia Present Hypochromasia Basophilic Stippling Anisocytosis 2+ PT INR APTT Sodium 139 Potassium 5.4 H Chloride 107 Carbon Dioxide 23.7 Anion Gap 8.3 BUN 81 H* Creatinine 2.0 H Est GFR (CKD-EPI 2020) 25.89 Glucose 130 H Calcium 8.5 Magnesium Total Bilirubin AST ALT Alkaline Phosphatase Lactate Dehydrogenase Troponin I NT-Pro-B Natriuret Pep Total Protein Albumin Urine Color Yellow Urine Clarity Clear Urine pH 6.0 Ur Specific [place] >= 1.030 H Urine Protein Negative Urine Ketones Negative Urine Blood Negative Urine Nitrite Negative Urine Bilirubin Negative Urine Urobilinogen 0.2 Ur Leukocyte Esterase Negative Urine Glucose Negative ABO/Rh Antibody Screen Direct Antiglob Test Crossmatch PAWSS Have you Been Recently Intoxicated or Drunk Within the Last 30 days?: No Have you Ever Experienced Previous Episodes of Alcohol Withdrawal?: No Have you ever Experienced Withdrawal Seizures?: No Have you ever Experienced Delirium Tremens(DT)s?: No Have you ever undergone Alcohol Rehabilitation Treatment (i.e, inpt ot outpatient treatment programs)?: No Have you ever Experienced Blackouts?: No Have you ever Combined Alcohol with other Downers within the last 90 days?: No Have you ever Combined Alcohol with any other Substance of Abuse during the last 90 days?: No Positive Blood Alcohol level on Presentation? [PCS.BAL]: No Evidence of Increased Autonomic Activity (i.e. HR>120, tremor, sweating, agitation, nausea)?: No Result: 0 Time Spent with Patient Time Spent with Patient: 35-49 minutes Time was spent: preparing to see the patient(eg.review tests), obtaining and/or reviewing separately otained hiistory, ordering medications,tests, procedures, referring, communicating with other health pet care worker, indepentently interpreting results and counseling the patient
--- NOTE | 2024-11-29 16:49 | NUR.NOTE ---
Nursing Note: I trialed the non-invasive hemoglobin machine on the patient, her oxygen saturation was 95%, heart rate 71 bpm, and hemoglobin 10.9. Dr. Domingo is aware.
[2024-11-29] MEDS: Cyclobenzaprine 10 MG TAB 5 MG PO (19:49)
[2024-11-29] MEDS: Magnesium Oxide 400 MG TAB 500 MG PO (19:50)
[2024-11-30 06:09] LABS: Abs Immature Grans 0.12 10^3/uL (0.0-0.06); Absolute Basophil Count 0.05 10^3/uL (0.0-0.2); Absolute Eosinophil Count 0.05 10^3/uL (0.0-0.7); Absolute Lymphocyte Count 1.16 10^3/uL (1.2-3.4); Absolute Monocyte Count 0.64 10^3/uL (0.1-0.8); Basophils % 0.4 %; Eosinophils % 0.4 %; HCT 28.2 % (36.0-46.0); HGB 8.7 g/dL (11.2-15.7); Lymphocytes % 9.6 %; MCHC 30.9 % (32.0-36.0); MCV 97 fL (80-95); MPV 10.5 fL (8.0-11.0); Monocytes % 5.3 %; Neutrophils % 83.3 %; Platelet Count 429 10^3/uL (130-400); RDW-SD 70.1 fL; WBC 12.04 10^3/uL (4.4-10.8)
[2024-11-30 06:34] LABS: Anion Gap 8.2 mmol/L (3-11); BUN 77 mg/dL (7-18); CO2 24.8 mmol/L (21.0-32.0); CREATININE 2.1 mg/dL (0.55-1.02); Calcium 8.8 mg/dL (8.5-10.1); Chloride 105 mmol/L (98-107); Estimated GFR 24.42 (mL/min/1.73m2); Glucose 120 mg/dL (74-106); Potassium 5.3 mmol/L (3.5-5.1); Sodium 138 mmol/L (136-145)
[2024-11-30 06:36] LABS: Absolute Neutrophil Count 10.03 10^3/uL (1.2-6.7)
[2024-11-30 07:43] VITALS: BP 154/56; PULSE 70; RESP 16; TEMP 36.9; O2SAT 95
--- NOTE | 2024-11-30 08:28 | W.INDIABCONS ---
Date of service: 11/30/24 Time of Service: 13:30 Diabetes Inpatient Consult Reason for Visit: received consult request re: diabetes educatin/mgt DESCRIPTION/ASSESSMENT: PT was gathering her belongings on my visit - getting ready for discharge. She relayed no questions but did take my card for outpatient support should she like a little guidance or education in regards to her nutrition needs. INTERVENTION: n/a PLAN: will be available in the outpatient setting for MNT/education/menu planning Time Spent in Nutritional Counseling and Treatment: 5 min
[2024-11-30] MEDS: Ferrous Sulfate 325 MG TAB PO (08:41)
[2024-11-30] MEDS: Carvedilol 12.5 MG TAB PO (08:41)
[2024-11-30] MEDS: DULoxetine 30 MG CAP PO (08:41)
[2024-11-30] MEDS: DULoxetine 30 MG CAP 60 MG PO (08:41)
[2024-11-30] MEDS: Normal Saline Flush 10 ML SYR IVP (08:41)
[2024-11-30] MEDS: Folic Acid 1 MG TAB PO (08:41)
[2024-11-30] MEDS: Atorvastatin 40 MG TAB PO (08:41)
--- NOTE | 2024-11-30 09:19 | PGE_ITS ---
Date of Service Date of service: 11/30/24 Time of Service: 09:19 Assessment and Plan Assessment and plan (1) Symptomatic anemia: Status: Acute Assessment and plan: hemoglobin up to 7.3 from 7.0 after one unit of PRBC Ordered for another 1 unit of packed red blood cells continue to hold Anticoagulation and antiplatelet no evidence of active acute bleeding, repeat CBC in am macrocytic Iron level 10 on August 2024 Will continue oral iron supplementation elevate for hemolytic anemia in setting of hydrea use, labs added present prior to recent blood transfusions pathologist review states she had upper and colonoscopy at [facility] within the past year with no issues reported. obtain report for review. (2) Epistaxis: Status: Resolved Assessment and plan: -not currently active outpatient ENT appointment on December 01 (3) Nhbzf-xe-[id number] kidney injury: Status: Acute Assessment and plan: Creatinine improved to 2.0 today from 2.5 on admission which is above baseline of 1.7-1.8 Will hold diuretics and nephrotoxic drugs for now including metformin losartan chlorthalidone Lasix and spironolactone Avoid nephrotoxic drugs and renally dose Consider gentle IV hydration if needed after blood transfusion (4) Hyperkalemia: Status: Acute Assessment and plan: in setting of KEVIN, potassium supplementation and spironalactone placed on hold consider lasix after blood transfusion follow closely (5) RLS (restless legs syndrome): Status: Chronic Assessment and plan: -continue home ropinerole (6) Hyperlipidemia: Status: Acute Assessment and plan: -continue home statin (7) Essential hypertension: Status: Acute Assessment and plan: Will hold home spironolactone, losartan, lasix, chlorthalidone in setting of KEVIN continue carvedilol Monitor blood pressure closely (8) CAD (coronary artery disease): Status: Chronic Assessment and plan: No chest pain RCA stent 2006 vascular -holding ASA for now. continue statin and carvedilol (9) Chronic pain: Status: Chronic Assessment and plan: -From lipodermatosclerosis -continue home fentanyl patch Followed by [facility] (10) Type 2 diabetes mellitus with circulatory disorder, with long-term current use of insulin: Status: Acute Assessment and plan: Hemoglobin A1c in June 2024 6.1 Continue diabetic diet Will place metformin on hold in the setting of acute on chronic kidney injury Continue Tresiba, or convert to Lantus if unavailable Check blood sugars before meals and at bedtime Mounjaro will be placed on hold while hospitalized (11) Peripheral vascular disease: Status: Chronic Assessment and plan: Status post right SFA angioplasty and stenting in 2003 Left popliteal bypass 2004 Stent right 2006 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 Has below the knee amputation on the right secondary to severe peripheral artery disease. No compression to left. anticipated discharge to home once medically stable discussed with Dr. Domingo Objective Last Vital Signs Temp 36.9 C 11/30/24 07:43 Pulse 70 11/30/24 07:43 Resp 16 11/30/24 07:43 BP 154/56 H 11/30/24 07:43 Pulse Ox 95 11/30/24 07:43 Laboratory Results - last 24 hr 11/28/24 11/30/24 16:20 05:50 WBC 12.04 H RBC 2.90 L Hgb 8.7 L Hct 28.2 L MCV 97 H MCH 30.0 MCHC 30.9 L RDW 20.0 H Plt Count 429 H MPV 10.5 Immature Gran % 1.0 Neutrophils % 83.3 Lymphocytes % 9.6 Monocytes % 5.3 Eosinophils % 0.4 Basophils % 0.4 Nucleated RBC % 0.0 Absolute Neutrophils 10.03 H Absolute Lymphocytes 1.16 L Absolute Monocytes 0.64 Absolute Eosinophils 0.05 Absolute Basophils 0.05 Sodium 138 Potassium 5.3 H Chloride 105 Carbon Dioxide 24.8 Anion Gap 8.2 BUN 77 H Creatinine 2.1 H Est GFR (CKD-EPI 2020) 24.42 Glucose 120 H Calcium 8.8 ABO/Rh A Positive Antibody Screen NEGATIVE Crossmatch See Detail PAWSS Have you Been Recently Intoxicated or Drunk Within the Last 30 days?: No Have you Ever Experienced Previous Episodes of Alcohol Withdrawal?: No Have you ever Experienced Withdrawal Seizures?: No Have you ever Experienced Delirium Tremens(DT)s?: No Have you ever undergone Alcohol Rehabilitation Treatment (i.e, inpt ot outpatient treatment programs)?: No Have you ever Experienced Blackouts?: No Have you ever Combined Alcohol with other Downers within the last 90 days?: No Have you ever Combined Alcohol with any other Substance of Abuse during the last 90 days?: No Positive Blood Alcohol level on Presentation? [PCS.BAL]: No Evidence of Increased Autonomic Activity (i.e. HR>120, tremor, sweating, agitation, nausea)?: No Result: 0
[2024-11-30] MEDS: Lactated Ringers 500 ML IV (09:44)
[2024-11-30] MEDS: Insulin Glargine 300 UNITS/3 ML PEN 80 UNITS SC (09:48)
[2024-11-30 10:16] LABS: Haptoglobin 184 mg/dL (32-197)
[2024-11-30] MEDS: Sodium Zirconium Cyclosilicate 10 GM PKT PO (11:02)
--- NOTE | 2024-11-30 11:21 | CMDISCH_ITS ---
Date of service: 11/30/24 Time of Service: 11:21 LACE Index Scoring Tool Questions: Length of Stay (in days): 2 Was the patient admitted via the E.D.?: Yes Comorbidities: Diabetes w/o Complication and Liver or Renal Disease E.D. Visits: 6 Answers: Total Score: 14 Risk of Readmission: High Risk Care Management Discharge Plan Reason for Hospitalization: anemia Discharge Plan: Emilia is discharged home today with no new services. She will f/u with her ENT tomorrow, as previously scheduled, and with her PCP on 12/15. She will f/u with outpatient PT and continue per her plan of care. Emilia will transport home in a private vehicle. Patient/Family Education Needs: review of discharge instructions, activity, limitations and discuss ask me 3. SDOH Health Related Social Needs: Health related social needs feeling lonely/isolated (Z 60.8), education (Z55.6)
--- NOTE | 2024-11-30 11:44 | PT.INIE ---
PT Notes Visit Reasons: KEVIN, Symptomatic Anemia Physical Therapy Inpatient Initial Evaluation Date: 11/30/2024 Referring Doctor: Milena Pitts NP PT Orders: PT CONSULT: Safety Consult for D/C Precautions: Fall. Standard. Activity as tolerated. L BKA with L prosthesis. Patient Profile/Admitting Diagnosis: Emilia is a 73-year-old female admitted for management of symptomatic anemia, epsitaxis, acute on chronic kidney injury, hyperkalemia, hyperlipidemia and PVD. PMHX: All Active Problems (Updated 11/28/24 @ 16:49 by Leann Rayo MD) Hyperkalemia (Acute) Azotemia (Acute) Acute kidney injury (Acute) Anemia (Chronic) Heeum-wj-kxgiyrc kidney injury (Acute) Anemia (Chronic) Acute sinus infection (Acute) Epistaxis (Acute) Symptomatic anemia (Acute) Paroxysmal A-fib (Acute) dx in hospital 05/2022 Chest pain (Acute) Chronic pain (Chronic) CAD (coronary artery disease) (Chronic) KEVIN (acute kidney injury) (Acute) Acute confusion (Acute) Severe anemia (Acute) Multiple open wounds of right lower leg (Acute) Chronic pain of right lower extremity (Acute) Bilateral carpal tunnel syndrome (Acute) B/L ECTR: 06/24/2024 Ulnar neuropathy of both upper extremities (Acute) Renal lesion (Acute) Phlegm in throat (Acute) Hand numbness (Acute) Lipodermatosclerosis (Acute) Bladder leak (Acute) Weight gain (Acute) Rash (Acute) Change in bowel habits (Acute) 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 Harvey. Osteoarthritis of right hip (Chronic) Injection under fluoroscopy: 10/01/2019RLS (restless legs syndrome) (Chronic) Primary osteoarthritis of right knee (Chronic) Chronic pain of left lower extremity (Chronic) await prorate clerk recommendations Polyp of colon (Acute 09/15/09) 09/25 COLONOSCOPY: ONE TUBULAR ADENOMA AND FOUR HYPERPLASTIC POLYPS. ALEX (obstructive sleep apnea) (Chronic 03/11/18) not on CPAP due to bedroom size Hyperlipidemia (Acute 01/14/14) History of tobacco use (Acute) Essential hypertension (Acute 08/18/13) Cataracts, both eyes (Acute) 11/11/15 OPTICAL EXPRESSIONS; EARLY CATARACTS B12 deficiency (Acute 04/08/15) Atherosclerosis of [place] coronary artery (Acute) Stent RCA 2007 Hyperlipidemia (Chronic) Hypertension (Chronic) CAD (coronary artery disease) (Chronic) S/P stent 2004Peripheral vascular disease (Chronic) S/P right SFA antioplasty an sstenting, 2003. Left DVA to [place] popliteal bypass with [place], 2003. Bypass Left Stent Right 2005 left BKA 08/28 Medical History Venous insufficiency of leg Atrial fibrillation Fracture, femur closed, shaft (05/13/22) (L) Carpal tunnel syndrome (05/16/09) Hypertension History of tobacco abuse Quit 2004 Surgical History Status post amputation of lesser toe of right foot History of left hip replacement History of total replacement of left shoulder joint 02/08/23. -hb S/P peripheral artery angioplasty with stent placement Status post below-knee amputation of left lower extremity (2012) History of total right hip replacement (08/03/20) Hx of tubal ligation History of carpal tunnel release Bilaterally Social History/Home Situation: Independent with all aspects of ADLs prior to admission. Did say that [place] [facility] [place] care 2x/week has been gettign t exhausting for her. Family members work and go to school during the day which make her alone and needing to manage alone. Independent with donning and doffing porsthesis. Equipment Owned/DME: FWW, 4WW, bedside commode, wheelchair Subjective: Complained that her R gluteal pain would get worse and stiff with walking until she falters, collapses, and falls. Agreeable to OP PT to address piriformis syndrome while working on B LE strengthening to reduce fall risk. Objective: General Observation: L BKA residual limb seen. Swelling and open areas with wound dressing to R crural area. IV through L UE. Mental Status: Alert and oriented as to person, place, time, and purpose. Able to pay attention, focus, and respond appropriately. Pain: Pain in R gluteal area at 5/10 Vital Signs: Closely monitored by nursing staff ROM: Right Lower Extremity: Hip flexion allows up to about 100 degrees. Hip abduction allows up to 30 degrees. Hip extenal rotation has pain and stiffness at about 30 degree. Hip internal rotation felt stidf at about 20 degees of rotation. Knee flexion 10 degrees to 100 degrees . Ankle dorsiflexion NT. Ankle plantarflexion NT. Left Lower Extremity: Hip flexion WFL. Hip abduction WFL. Knee flexion 10 degrees to 90 degrees. Knee extension -10 degrees Strength: Right Lower Extremity: Hip flexors 3-/5. Hip abductors 3-/5. Hip external rotators 3-/5. Hip internal rotators 3-/5. Knee flexors 3-/5. Knee extensors 3-/5. Ankle dorsiflexors NT. Ankle plantarflexors NT. Left Lower Extremity: Hip flexors 4-/5. Hip abductors 4-/5. Knee flexors 3-/5. Knee extensors 3-/5. Bed Mobility/Transfers: Rolling independent Supine to sit independent Sit to supine independent Sit to stand independent Stand to sit independent Gait: Facilitated safe and correct performance of level surface ambulation covering a distance of 100 feet + 150 feet using FWW with stand by assist with IV pole management, and wheelchair follow of PT. Patient did not complain of increased dizziness but reported increasing stiffness and pain in the R gluteal and sacral area that she adds when it gets too much make her weak and cause her to fall. Patient was able to rest in time before this symptom could get worse and was able to finish the rest of the walk using the FWW. felt some inequality in leg length and vinicius imbalance that the walker was able to help with. Balance: Static Sitting: Normal Dynamic Sitting: Good Static Standing: Fair Dynamic Standing: Fair Special Tests: Mobility Limitations Standardized Measure [facility] AM-PAC 6 clicks Basic Mobility Inpatient Short Form: Raw Score: 23 CMS Score: 11% deficit Informed Consent/Education: Patient was instructed in purpose of PT consult and plan of care. Agreeable to proceed with established PT POC to achieve personal goals. Assessment: Patient with past medical history significant for L BKA, B hip and R knee OA, and high BMi which demonstrate symptoms of R piriformis tightness/syndrome causing R gluteal/sacral pain, muscle tightness, limitation of movement and weakness of R hip extenral rotators/abductors which has contributed to at least 4 falls in the past year. Patient was admitted for management of sympotmatic anemia, epistaxis, acuet on chroninc kidney disease, hyperkalemia, hyperlipidemia, PVD, DM type II and chronic pain. Patient presents with clinical signs and symptoms consistent with current/admitting diagnoses that have resulted to mobility limitations, gait instability, generalized weakness, and overall ADL decline as demonstrated by the following impairment level findings: 1. Decreased strength to B LE major muscle groups 2. Impaired sitting/standing balance 3. Impaired activity tolerance 4. Limitation of joint range of motion in hip external rotation and abductin 5. Pain and weakness in R piriformis area; tight R pirifomris 6. SWelling in R leg and foot 7. Open areas in R crural areas Impairments are contributing to the following functional limitations: 1. Decline in bed mobility skills 2. Decline in transfer skills 3. Difficulty with ambulation without assistive device 4. Increased completion time for mobility ADL performance 5. Increased risk for falls 6. Difficulty with managing steps alone safely Patient is assessed as a [id number] moderate complexity based on the following: History: 73-year-old female with past medical history as indicated above Examination: Demonstrable impairment in strength, balance, and mobility level with underlying impairments and functional limitations as exhibited above as well as deficit score of 11% utilizing the [facility] Mobility Inpatient Short Form Presentation: Evolving Decision Makin moderate complexity Goals: Goals X1 week 1. Supine-Sit independent 2. Sit-Supine independent 3. Sit-Stand independent 4. Stand-Sit independent with FWW 5. Bed-Chair independent with FWW 6. Chair-Bed independent with FWW 7. Independent gait on level surface with use of FWW for at least 150 feet without report of pain nor dyspnea 8. Independent stair negotiation using SPC while holding onto 1 rail for at least 3 steps without report of pain nor dyspnea 9. Good static and dynamic standing balance/tolerance Plan of Care/Treatment Plan: 1-2x/day, 7 days/week x 1 week. Plan of care has been reviewed with the PERSONAL DEVELOPMENT MENTOR providing the service under Physical Therapy direction. Initiate Physical Therapy intervention for pain management as needed, strengthening, bed mobility, transfers, gait, stairs, balance training, and use of assistive device. DISCHARGE RECOMMENDATIONS: Home with no services [] [X] Home with services. OP PT for management of R piriformis syndrome and B LE strengthening to reduce falls. [] Home with outpatient PT [] [] SNF for continued rehabilitation [] [] Sales Consultant Residential Manager Care [] [] SNF versus LTC based on ability to participate and progress [] TREATMENT CODE/TIME: 94190 x 25 minutes for 1 unit, 01756 x 27 minutes for 2 units (10:40-11:32). Thank you for the opportunity to participate in the care of this patient. Charisma Tran PT, DPT, CLT [facility] [place], [place]
[2024-11-30] MEDS: Insulin Aspart 300 UNITS/3 ML PEN SC (12:03)
[2024-11-30 12:18] LABS: BUN 74 mg/dL (7-18); Calcium 8.5 mg/dL (8.5-10.1); Chloride 105 mmol/L (98-107); Estimated GFR 25.89 (mL/min/1.73m2); Glucose 210 mg/dL (74-106); Potassium 4.9 mmol/L (3.5-5.1); Sodium 137 mmol/L (136-145)
--- NOTE | 2024-11-30 13:13 | DSE_ITS ---
Date of service: 11/30/24 Time of Service: 13:13 DS: Diagnosis Discharge Diagnosis (1) Symptomatic anemia: Status: Acute (2) Epistaxis: Status: Resolved (3) Lhdys-kk-fyhtsln kidney injury: Status: Acute (4) Hyperkalemia: Status: Acute (5) RLS (restless legs syndrome): Status: Chronic (6) Hyperlipidemia: Status: Acute (7) Essential hypertension: Status: Acute (8) CAD (coronary artery disease): Status: Chronic (9) Chronic pain: Status: Chronic (10) Type 2 diabetes mellitus with circulatory disorder, with long-term current use of insulin: Status: Acute (11) Peripheral vascular disease: Status: Chronic (12) Essential thrombocythemia: Status: Acute (13) Lipodermatosclerosis: Status: Acute (14) Discharge planning issues: Status: Resolved Discharge Plan Disposition Patient Disposition: Home Condition: Improving Discharge Details Reason For Visit: KEVIN, Symptomatic Anemia Admit Date/Time: 11/28/24 16:52 Admit Provider: Mahin Espinal Attending Provider: Mahin Espinal Primary Care Provider: Gui Graham Hospital Course Hospital Course: This 73-year-old female patient with past medical history of atrial fibrillation on apixaban, left BKA, presented to the ED at [facility] on 11/24/2024 for evaluation of generalized weakness, lightheadedness, malaise. The patient was in the ED on November 24 for epistaxis, treated with 1 unit of PRBC and discharged home with a hemoglobin of 7.6, and advised to hold her apixaban for 2 days. Workup in the ED showed an H&H of 7 and 23 with worsening creatinine at 2.5 with potassium at 5.7. The patient was admitted to the medical surgical floor by the hospitalist service for further evaluation and monitoring. The patient received a total of 2 units of PRBC. On the day of discharge, H&H remained stable at 8.7 and 28 today, creatinine down to 2.0, potassium down to 4.9. The patient can resume the apixaban in AM. Chlorthalidone, spironolactone, potassium and ibuprofen on hold and resumption to be discussed with primary care provider. The patient will be discharged home with OT and PT as per physical therapy recommendations; the patient prefers OPT services. The patient will need to follow-up with the primary care practitioner within 7 days of discharge to discuss outpatient referral to general surgery for anemia workup. Discussed with Dr. Domingo Home Meds and New Rx's Prescriptions: Continued carvedilol 12.5 mg tablet 12.5 mg PO BID Rx Instructions: must administer with a meal/food Mounjaro 2.5 mg/0.5 mL pen injector 2.5 mg subcut QWEEK MDD 2.5 28 Days Qty: 2 12RF Rx Instructions: Inject 2.5 mg subcutaneously once weekly as directed. fentanyl 25 mcg/hr patch 72 hour 1 patch transdermal Q72H MDD 1 patch Qty: 5 0RF Patient Comments: doesn't have one on now (DME) Dexcom G7 Sensor Device See Rx Instructions .Route Qty: 1 11RF Rx Instructions: As directed apixaban 2.5 mg tablet 2.5 mg PO BID Qty: 180 3RF cyclobenzaprine 5 mg tablet 5 mg PO QHS Qty: 7 0RF (DME) Dexcom G7 [employer] Misc See Rx Instructions .Route Qty: 1 0RF Rx Instructions: As directed vibegron 75 mg tablet 75 mg PO DAILY Qty: 90 3RF Rx Instructions: per [facility] gyne, for urge incontinence (DME) blood-glucose meter [Accu-Chek Guide Glucose Meter] Misc See Rx Instructions .ROUTE .MEDSUPPLY Qty: 1 0RF Rx Instructions: test as directed (DME) insulin syringe-needle U-100 [BD Insulin Syringe Ultra-Fine] 1 mL 31 gauge x 5/16 syringe See Rx Instructions .ROUTE .MEDSUPPLY Qty: 180 3RF Rx Instructions: 1 injection sq BID folic acid 1 mg tablet 1 mg PO DAILY (DME) Accu-Chek Guide test strips Strip 1 ea Miscellaneous DAILY Qty: 300 3RF Rx Instructions: test 3 x day magnesium 250 mg tablet 500 mg PO QHS atorvastatin 40 mg tablet 40 mg PO DAILY Qty: 90 3RF duloxetine 60 mg capsule,delayed release(DR/EC) 60 mg PO DAILY Qty: 90 3RF duloxetine 30 mg capsule,delayed release(DR/EC) 30 mg PO DAILY Qty: 90 3RF Rx Instructions: take with a 60 mg capsule to equal 90 mg/day furosemide 20 mg tablet 20 mg PO DAILY Qty: 90 3RF metformin 500 mg tablet 500 mg PO BID Qty: 180 3RF hydroxyurea 500 mg capsule 500 - 1,000 mg PO DAILY Qty: 115 3RF Rx Instructions: 500 mg/day except take 1000 mg Sat and Saturday aspirin [Adult Aspirin Regimen] 81 mg tablet,delayed release (DR/EC) 81 mg PO DAILY (DME) lancets Misc 1 ea Miscellaneous DAILY Qty: 300 3RF Rx Instructions: test 3 x /day insulin glargine [Lantus Solostar U-100 Insulin] 100 unit/mL (3 mL) insulin pen 100 unit subcut QAM Qty: 90 3RF losartan 100 mg tablet 100 mg PO HS ferrous sulfate 325 mg (65 mg iron) Tablet 325 mg PO DAILY Qty: 30 0RF ropinirole 8 mg tablet extended release 24 hr 8 mg PO HS Held potassium chloride 10 mEq tablet extended release 10 meq PO DAILY Qty: 90 3RF Hold Instructions: Resume on 12/08/24. Resume as per PCP chlorthalidone 50 mg tablet 100 mg PO DAILY Qty: 180 3RF Hold Instructions: Resume on 12/08/24. Resume as per pcp spironolactone [Aldactone] 25 mg tablet 25 mg PO DAILY Qty: 90 3RF Hold Instructions: Resume on 12/08/24. Resume as per PCP ibuprofen 600 mg tablet 600 mg PO TID PRN (Reason: pain) Qty: 90 0RF Hold Instructions: Resume on 12/08/24. Resume as per PCP amoxicillin-pot clavulanate 875-125 mg tablet 1 tab PO BID Qty: 14 0RF Hold Instructions: Resume on 12/08/24. Finished therapy Discharge Instructions Stand Alone Forms: Nursing Discharge Form Referrals: BETY Huntley [OTHER] - (PT-OT recommendation for management of R piriformis syndrome and B LE strengthening to reduce falls. Referral has been faxed.) Gui Graham MD [Primary Care Provider] - 12/08/24 9:20 am (Follow-up within [address] of [address] With Dr[address] Hutchins.) Activity:: Activity as Tolerated Equipment/Supplies:: Walker Diet:: heart healthy diabetic Discharge Orders Discharge Orders: Discharge Order (Routine); Ordered 11/30/24 Ordered By: Milena Pitts DS: Summary Time Spent with Patient providing and/or coordinating discharge services: Greater than 30 minutes Status at Discharge Functional status at discharge: independent ambulation (L BKA - prothesis) Overall status at discharge: patient is progressing back to baseline Mental Status: mental status grossly normal Speech and Movement: speech and movement normal Mood: congruent mood Affect: normal affect Quality:SDOH Health Related Social Needs: Health related social needs feeling lonely/isolated (Z 60.8), education (Z55.6) Exam Narrative Exam Narrative: Constitutional The patient is sitting comfortable, without acute distress HENMT:Facial structures with normal appearance Eyes: Well aligned, intact ROM Neuro:alert and oriented to self, person, place, time and situation. No neurological focal deficit Resp: Unlabored breathing, clear lung bilaterally Cardio: regular rhythm, S1, S2, no murmur, capillary, positive right dorsalis pedis pulses GI: Abdomen is not distended, soft and non tender, bowel sounds are present : Negative Costovertebral angle tenderness Back/spine/Pelvis: No back tenderness, normal alignment Integumentary: RLE wound (chronic ulcer) covered with DCI dressing Extremities: L BKA Psych: RASS 0, congruent mood and normal affect. Psych Mental Status: mental status grossly normal Speech and Movement: speech and movement normal Mood: congruent mood Affect: normal affect DS: Data Vitals/I&O Vitals and I&O: Vital Signs Temperature 36.9 C 11/30/24 07:43 Temperature Source Temporal Artery Scan 11/30/24 07:43 Pulse 70 11/30/24 07:43 Pulse Rhythm Irregular 11/28/24 18:10 Pulse 65 11/28/24 17:45 Respiratory Rate 16 11/30/24 07:43 Respiratory Effort Normal 11/28/24 18:10 Respiratory Depth Normal 11/28/24 18:10 Respiratory Pattern Normal 11/28/24 18:10 Blood Pressure 154/56 H 11/30/24 07:43 Blood Pressure Mean 67 11/28/24 17:45 Pulse Oximetry 95 11/30/24 07:43 Oxygen Delivery Method Room Air 11/30/24 07:43 Oxygen Flow Rate 0 11/30/24 07:43 Pain Level 7 11/30/24 07:43 Comment pt is currently receiving one unit of packed RBCs 11/28/24 18:10 Intake & Output 11/29/24 11/30/24 11/30/24 23:59 11:59 23:59 Intake Total 360 / 560 240 / 240 Output Total 500 / 1250 1000 / 1000 Balance -140 / -690 -760 / -760 Intake: Oral 360 / 540 240 / 240 Output: Urine 500 / 1250 1000 / 1000 Other: Urine Color Yellow Yellow Urine Appearance Cloudy Clear Urine Odor Normal None Data Completed and Pending Labs on day of discharge: Labs from last 24 hours 11/30/24 11/30/24 11/28/24 11:55 05:50 16:20 WBC 12.04 H RBC 2.90 L Hgb 8.7 L Hct 28.2 L MCV 97 H MCH 30.0 MCHC 30.9 L RDW 20.0 H Plt Count 429 H MPV 10.5 Immature Gran % 1.0 Neutrophils % 83.3 Lymphocytes % 9.6 Monocytes % 5.3 Eosinophils % 0.4 Basophils % 0.4 Nucleated RBC % 0.0 Absolute Neutrophils 10.03 H Absolute Lymphocytes 1.16 L Absolute Monocytes 0.64 Absolute Eosinophils 0.05 Absolute Basophils 0.05 Sodium 137 138 Potassium 4.9 5.3 H Chloride 105 105 Carbon Dioxide 23.0 24.8 Anion Gap 9.0 8.2 BUN 74 H 77 H Creatinine 2.0 H 2.1 H Est GFR (CKD-EPI 2020) 25.89 24.42 Glucose 210 H 120 H Calcium 8.5 8.8 Crossmatch See Detail PFSH All Active Problems (Updated 11/28/24 @ 16:49 by Leann Rayo MD) Hyperkalemia (Acute) Azotemia (Acute) Acute kidney injury (Acute) Anemia (Chronic) Idzrh-kd-hcmltsz kidney injury (Acute) Anemia (Chronic) Acute sinus infection (Acute) Epistaxis (Acute) Symptomatic anemia (Acute) Paroxysmal A-fib (Acute) dx in hospital 05/2022 Chest pain (Acute) Chronic pain (Chronic) CAD (coronary artery disease) (Chronic) KEVIN (acute kidney injury) (Acute) Acute confusion (Acute) Severe anemia (Acute) Multiple open wounds of right lower leg (Acute) Chronic pain of right lower extremity (Acute) Bilateral carpal tunnel syndrome (Acute) B/L ECTR: 06/24/2024 Ulnar neuropathy of both upper extremities (Acute) Renal lesion (Acute) Phlegm in throat (Acute) Hand numbness (Acute) Lipodermatosclerosis (Acute) Bladder leak (Acute) Weight gain (Acute) Rash (Acute) Change in bowel habits (Acute) 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 Harvey. Osteoarthritis of right hip (Chronic) Injection under fluoroscopy: 10/01/2019 RLS (restless legs syndrome) (Chronic) Primary osteoarthritis of right knee (Chronic) Chronic pain of left lower extremity (Chronic) await pharmacist assistant recommendations Polyp of colon (Acute 09/15/09) 09/25 COLONOSCOPY: ONE TUBULAR ADENOMA AND FOUR HYPERPLASTIC POLYPS. ALEX (obstructive sleep apnea) (Chronic 03/11/18) not on CPAP due to bedroom size Hyperlipidemia (Acute 01/14/14) History of tobacco use (Acute) Essential hypertension (Acute 08/18/13) Cataracts, both eyes (Acute) 11/11/15 OPTICAL EXPRESSIONS; EARLY CATARACTS B12 deficiency (Acute 04/08/15) Atherosclerosis of sun'aq coronary artery (Acute) Stent RCA 2006 Hyperlipidemia (Chronic) Hypertension (Chronic) CAD (coronary artery disease) (Chronic) S/P stent 2004 Peripheral vascular disease (Chronic) S/P right SFA antioplasty an sstenting, 2003. Left DVA to [place] popliteal bypass with [place], 2003. Bypass Left Stent Right 2005 left BKA 08/28 Medical History Venous insufficiency of leg Atrial fibrillation Fracture, femur closed, shaft (05/13/22) (L) Carpal tunnel syndrome (05/16/09) Hypertension History of tobacco abuse Quit 2004 Surgical History Status post amputation of lesser toe of right foot History of left hip replacement History of total replacement of left shoulder joint 5/26/23. -hb S/P peripheral artery angioplasty with stent placement Status post below-knee amputation of left lower extremity (2012) History of total right hip replacement (08/03/20) Hx of tubal ligation History of carpal tunnel release Bilaterally Family History Mother , 74 Neoplasm UTERINE Osteoporosis Uterine cancer Lung cancer Father Lung cancer Sister Neoplasm MELANOMA Breast cancer Sister No problems noted. Sister Skin cancer Brother No problems noted. Son Alcohol abuse Depression Maternal Grandfather Stomach cancer Paternal Grandfather No problems noted. Maternal Grandmother No problems noted. Paternal Grandmother No problems noted. Daughter Depression Social History Smoking/Tobacco Use Status: Former Tobacco Use tobacco type: cigarettes Quit Date: 09/16/04 Tobacco: How many years used: 37 Second Hand Exposure: Yes Smoking risk assessment performed?: Yes Alcohol Intake: current Alcohol Intake frequency: a few times a month Alcohol type: beer and hard liquor Drug use: Never Substance use type: does not use Details: Patient drank a alcoholic beverage yesterday (06/23) Caregiver/Support person: No Household members: none Housing: house Do you need help understanding health information?: Rarely current occupation: [employer] Pets and animals: Yes Pets and animals: cat(s) Sexually active: No Do you think of yourself as: straight/heterosexual Current gender identity: female What is your relationship status?: How often do you talk on the phone with friends or family?: three or more times per week How often do you get together with friends or relatives?: decline to answer How often do you attend shinto or evangelical services?: 1-3 times per year Do you belong to any clubs or organized social groups?: no Panel score (0-1 are the most socially isolated patients): 2 What type of physical activity do you participate in: none Carmelina/Christian: Adventist Special carmelina needs: No Seatbelt use: always Helmet use: Yes Helmet use: always Drive intox 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 interstate bus driver: No Do you feel safe at home: Yes Do you feel safe in your relationship?: Yes Would you like helpful sources: No Time Spent with Patient Time Spent with Patient: 70-84 minutes4 Time was spent: preparing to see the patient(eg.review tests), obtaining and/or reviewing separately otained hiistory, ordering medications,tests, procedures, referring, communicating with other health neonatal intensive care nurse, indepentently interpreting results, counseling the patient and care coordination
== END 2024-11-30 15:09 | disposition home or self-care (01) ==
LOC: ER 17:25 → MS 18:04
PROVIDERS: Nurse Practitioner Acute Care; Admitting Provider Family Medicine; Emergency Provider Student in an Organized Health Care Education/Training Program; PCP Family Medicine; Responsible Provider Nurse Practitioner Acute Care; Visit Provider Family Medicine
DX: G25.81 Restless legs syndrome (principal); E78.5 Hyperlipidemia, unspecified; I12.9 Hypertensive chronic kidney disease with stage 1 through stage 4 chronic kidney disease, or unspecified chronic kidney disease; I25.10 Atherosclerotic heart disease of native coronary artery without angina pectoris; G89.29 Other chronic pain; E11.59 Type 2 diabetes mellitus with other circulatory complications; E11.22 Type 2 diabetes mellitus with diabetic chronic kidney disease; I73.9 Peripheral vascular disease, unspecified; M79.3 Panniculitis, unspecified; N18.9 Chronic kidney disease, unspecified; E87.5 Hyperkalemia; Z95.5 Presence of coronary angioplasty implant and graft; D50.9 Iron deficiency anemia, unspecified; D47.3 Essential (hemorrhagic) thrombocythemia; I48.0 Paroxysmal atrial fibrillation; Z79.4 Long term (current) use of insulin; G47.33 Obstructive sleep apnea (adult) (pediatric); Z89.512 Acquired absence of left leg below knee; L97.819 Non-pressure chronic ulcer of other part of right lower leg with unspecified severity; Z79.85 Long-term (current) use of injectable non-insulin antidiabetic drugs; Z79.01 Long term (current) use of anticoagulants
CPT/HCPCS: 00123; 36415; 36430; 80048; 80053; 86850; 86900; 86901; 86920; 93005; 96360; 97162; 97530; 99285; 81003; 83010; 83615; 83735; 83880; 84484; 85025; 85045; 85610; 85730; 86880; 93010; 99223; 99233; 99239; G0378; J1815; J9999; P9016

== ENCOUNTER 2024-12-16 17:12 | Outpatient (REF) | payer MEDICARE, BC, SELFPAY | END 2024-12-16 17:13 | disposition home or self-care (01) | LOC: LBN 17:12 | PROVIDERS: PCP Family Medicine; Visit Provider Nurse Practitioner Family | DX: L98.9 Disorder of the skin and subcutaneous tissue, unspecified (principal); M79.3 Panniculitis, unspecified; L03.115 Cellulitis of right lower limb | CPT/HCPCS: 87077; 87070; 87186; 87205 ==

== ENCOUNTER 2024-12-25 09:51 | Day surgery (SDC) | payer MEDICARE, BC, SELFPAY ==
--- NOTE | 2024-12-25 06:44 | W.ANESPRE ---
General Info Date of Service Date Performed: 12/25/24 Height: 5 ft 10 in Weight: 107.558 kg Body Mass Index (BMI): 34.0 Surgical Procedure: Operation Date: 12/25/24 13:10 Proposed Procedure Side Surgeon p Cataract Extraction with IOL Implant Left Jamil Vargas MD Meds Allergies and Home Medications Allergies Allergy/AdvReac Type Severity Reaction Status Date / Time clopidogrel Allergy Skin Rash Verified 12/25/24 10:09 oxybutynin AdvReac Intermediate Reflex Verified 12/25/24 10:09 propoxyphene AdvReac Nausea Verified 12/25/24 10:09 Home Medication ?Medication ?Instructions ?Recorded blood-glucose meter (Accu-Chek #1 ea 03/17/20 Guide Glucose Meter) insulin syringe-needle U-100 1 mL #180 ea 12/06/20 31 gauge x 5/16 (BD Insulin Syringe Ultra-Fine) folic acid 1 mg tablet 1 mg PO DAILY 06/05/22 blood sugar diagnostic (Accu-Chek #300 strips 11/24/22 Guide test strips) blood-glucose meter,continuous #1 ea 01/02/23 (Dexcom G7 Chamber Magistrate) magnesium 250 mg tablet 500 mg PO QHS 07/01/23 carvedilol 12.5 mg tablet 12.5 mg PO BID 12/23/23 atorvastatin 40 mg tablet 40 mg PO DAILY #90 tab-caps 01/13/24 chlorthalidone 50 mg tablet 100 mg (2 x 50 mg) PO DAILY #180 01/13/24 tabs metformin 500 mg tablet 500 mg PO BID #180 tabs 01/13/24 spironolactone 25 mg tablet 25 mg PO DAILY #90 tabs 01/13/24 (Aldactone) tirzepatide 2.5 mg/0.5 mL 2.5 mg (0.5 mL) subcut QWEEK 4 02/25/24 subcutaneous pen injector weeks #2 mL (Mounjaro) vibegron 75 mg tablet 75 mg PO DAILY #90 tabs 03/11/24 hydroxyurea 500 mg capsule 500 - 1,000 mg (1 - 2 x 500 mg) PO 04/08/24 DAILY #115 caps ibuprofen 600 mg tablet 600 mg PO TID PRN pain #90 tabs 06/24/24 aspirin 81 mg tablet,delayed 81 mg PO DAILY 08/06/24 release (Adult Aspirin Regimen) ferrous sulfate 325 mg (65 mg 325 mg PO DAILY #30 tabs 09/07/24 iron) tablet ropinirole 8 mg tablet,extended 8 mg PO HS 09/17/24 release 24 hr apixaban 2.5 mg tablet 2.5 mg PO BID #180 tabs 10/06/24 blood-glucose sensor (Dexcom G7 #1 ea 10/06/24 Sensor device) fentanyl 25 mcg/hr transdermal 1 patch transdermal Q72H #5 ea 10/06/24 patch cyclobenzaprine 5 mg tablet 5 mg PO QHS #7 tabs 10/09/24 lancets #300 ea 11/13/24 duloxetine 30 mg capsule,delayed 30 mg PO DAILY #90 caps 12/09/24 release duloxetine 60 mg capsule,delayed 60 mg PO DAILY #90 caps 12/09/24 release furosemide 20 mg tablet 20 mg PO DAILY #90 tabs 12/09/24 losartan 100 mg tablet 100 mg PO HS #90 tabs 12/09/24 doxycycline hyclate 100 mg capsule 100 mg PO BID #20 caps 12/19/24 mupirocin 2 % topical ointment 1 applic topical TID #15 grams 12/19/24 cephalexin 500 mg capsule 500 mg PO QID 12/23/24 insulin glargine 100 unit/mL (3 100 unit subcut HS 12/23/24 mL) subcutaneous pen (Lantus Solostar U-100 Insulin) Current Visit Medications: Current Medications Generic Name Dose Route Start Last Admin Trade Name Freq PRN Reason Stop Dose Admin Acetaminophen 1,000 mg 12/25/24 06:20 Acetaminophen 500 Mg Tab PO 01/24/25 06:19 Q4H PRN PRN Balanced Salt Solution 500 ml 12/25/24 06:20 Balanced Salt Soln.-Plus 500 Ml Bag OP 01/24/25 06:19 DIRECTED RAMON Miscellaneous Medication 0 ml 12/25/24 06:20 Prednisolone 1%, Moxifloxacin 0.5%, Bromfenac 0.09% 5.6ml Btl OS 01/24/25 06:19 DIRECTED RAMON Miscellaneous Medication 0 ml 12/25/24 06:20 Tropicam./Phenyleph. (1/2.5%) 5 Ml Btl OS 01/24/25 06:19 DIRECTED RAMON Tetracaine HCl 0 ml 12/25/24 06:20 Tetracaine 0.5% 4 Ml Btl OS 01/24/25 06:19 DIRECTED COUNT INCLUDES THE [facility] PFSH Active Problems Active Problems: Problem Status Onset Code Cortical age-related cataract, left eye Acute H25.012 Nuclear age-related cataract, left eye Acute H25.12 Anemia Chronic D64.9 Aoagx-go-wxycbld kidney injury Acute N17.9, N18.9 Anemia Chronic D64.9 Acute sinus infection Acute J01.90 Epistaxis Acute R04.0 Paroxysmal A-fib Acute I48.0 Chest pain Acute R07.9 Chronic pain Chronic G89.29 CAD (coronary artery disease) Chronic I25.10 KEVIN (acute kidney injury) Acute N17.9 Acute confusion Acute R41.0 Severe anemia Acute D64.9 Multiple open wounds of right lower leg Acute S81.801A Chronic pain of right lower extremity Acute M79.604, G89.29 Bilateral carpal tunnel syndrome Acute G56.03 Ulnar neuropathy of both upper extremities Acute G56.23 Renal lesion Acute N28.9 Phlegm in throat Acute R09.89 Hand numbness Acute R20.0 Lipodermatosclerosis Acute M79.3 Bladder leak Acute R32 Weight gain Acute R63.5 Rash Acute R21 Change in bowel habits Acute R19.4 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 Essential thrombocythemia Acute D47.3 Type 2 diabetes mellitus with circulatory disorder, with long-term current use of insulin Acute E11.59, Z79.4 Rotator cuff tear arthropathy of right shoulder Acute M75.101, M12.811 Rotator cuff tear arthropathy of left shoulder Acute M75.102, M12.812 Fatigue Acute R53.83 Osteoarthritis of right knee Acute M17.11 Osteoarthritis of right hip Chronic M16.11 RLS (restless legs syndrome) Chronic G25.81 Primary osteoarthritis of right knee Chronic M17.11 Chronic pain of left lower extremity Chronic M79.605, G89.29 Polyp of colon Acute 09/15/09 K63.5 ALEX (obstructive sleep apnea) Chronic 03/11/18 G47.33 Hyperlipidemia Acute 01/14/14 E78.5 History of tobacco use Acute Z87.891 Essential hypertension Acute 08/18/13 I10 Cataracts, both eyes Acute H26.9 B12 deficiency Acute 0724/15 E53.8 Atherosclerosis of [place] coronary artery Acute I25.10 Hyperlipidemia Chronic E78.5 Hypertension Chronic I10 CAD (coronary artery disease) Chronic I25.10 Peripheral vascular disease Chronic I73.9 Medical History Medical History Venous insufficiency of leg Atrial fibrillation Fracture, femur closed, shaft (05/13/22) (L) Carpal tunnel syndrome (05/16/09) Hypertension History of tobacco abuse Quit 2004 Surgical History Surgical History Status post amputation of lesser toe of right foot History of left hip replacement History of total replacement of left shoulder joint 02/08/23. -hb S/P peripheral artery angioplasty with stent placement Status post below-knee amputation of left lower extremity (2012) History of total right hip replacement (08/03/20) Hx of tubal ligation History of carpal tunnel release Bilaterally Tobacco Smoking/Tobacco Use Status: Former Tobacco Use Passive smoking exposure: Yes Second hand exposure: Yes Alcohol Alcohol Intake: current Alcohol intake frequency: a few times a month Alcohol type: beer and hard liquor Substance Use Substance use: Never Substance use type: does not use Vital Signs and Lab Results Vital Signs Most Recent Vital Signs in EMR: Temp Pulse Resp BP Pulse Ox 35.9 C L 80 20 161/58 H 96 12/25/24 10:26 12/25/24 10:26 12/25/24 10:26 12/25/24 10:26 12/25/24 10:26 Lab Results Blood Type / Crossmatch: Antibody Screen NEGATIVE 11/28/24 Crossmatch See Detail 11/28/24 Complete Blood Count: White Blood Count 12.04 10^3/uL (4.4-10.8) H 11/30/24 05:50 Red Blood Count 2.90 10^6/uL (3.93-5.22) L 11/30/24 05:50 Hemoglobin 8.7 g/dL (11.2-15.7) L 11/30/24 05:50 Hematocrit 28.2 % (36.0-46.0) L 11/30/24 05:50 Platelet Count 429 10^3/uL (130-400) H 11/30/24 05:50 Complete Metabolic Panel: Sodium 137 mmol/L (136-145) 11/30/24 11:55 Potassium 4.9 mmol/L (3.5-5.1) 11/30/24 11:55 Chloride 105 mmol/L (98-107) 11/30/24 11:55 Carbon Dioxide 23.0 mmol/L (21.0-32.0) 11/30/24 11:55 BUN 74 mg/dL (7-18) H 11/30/24 11:55 Creatinine 2.0 mg/dL (0.55-1.02) H 11/30/24 11:55 Est GFR (CKD-EPI 2020) 25.89 (mL/min/1.73m2) 11/30/24 11:55 Magnesium 1.8 mg/dL (1.8-2.4) 11/28/24 15:30 Calcium 8.5 mg/dL (8.5-10.1) 11/30/24 11:55 Albumin 3.0 g/dL (3.4-5.0) L 11/28/24 15:30 Glucose 210 mg/dL (74-106) H 11/30/24 11:55 Liver Function Panel: Alanine Aminotransferase (ALT/SGPT) 20 U/L (14-59) 11/28/24 15:30 Aspartate Amino Transf (AST/SGOT) 10 U/L (15-37) L 11/28/24 15:30 Coagulation Panel: INR International Normalized Ratio 1.0 (0.9-1.1) 11/28/24 15:30 Prothrombin Time 10.4 sec (9.1-11.1) 11/28/24 15:30 Activated Partial Thromboplast Time 26.1 sec (20.6-30.2) 11/28/24 15:30 Cardiac Panel: Troponin I 7 ng/L (<or=51) 11/28/24 NT-Pro-B Natriuret Pep 428 pg/mL (<300) H 11/28/24 Arterial Blood Gas: No Data to Display Venous Blood Gas: No Data to Display Pancreas Panel: No Data to Display Thyroid Panel: No Data to Display Infectious Disease: No Data to Display Blood Cultures: No Data to Display Toxicology Panel: No Data to Display Imaging and Studies Imaging and Studies Study information below may be from another EMR and interpreted by another provider. Please see original notes in EMR for more complete details. EKG Summary: 04/2024:Conclusion Sinus rhythm PACs No STEMI Stress Test Summary: 05/07:MPI Conclusion Normal myocardial perfusion without evidence of ischemia or prior infarction EF is 59% with normal wall motion Echocardiogram Summary: Date of study: 08/22/2017 Transthoracic Echocardiography M-mode, complete 2D, complete spectral Doppler, and color Doppler *STUDY CONCLUSIONS* Summary: 1. Left ventricle: The cavity size was normal. Wall thickness was increased in a pattern of mild LVH. Systolic function was hyperdynamic. The estimated ejection fraction was 65-70%. There was an increased relative contribution of atrial contraction to ventricular filling. The tissue Doppler parameters were abnormal. Some parameters suggest diastolic dysfunction grade 1. There was no evidence of elevated ventricular filling pressure by Doppler parameters. 2. Mitral valve: There was mild regurgitation. 3. Left atrium: The atrium was mildly dilated. 4. Right ventricle: The cavity size was normal. Wall thickness was normal. Systolic function was normal. 5. Atrial septum: No defect or patent foramen ovale was identified. 6. Pulmonary arteries: Pulmonary systolic pressure was in the range of 15mm Hg to 25mm Hg. 7. Inferior vena cava: The vessel was patent and normal in size. The respirophasic diameter changes were in the normal range (greater than or equal to 50%), consistent with normal central venous pressure. Anesthesia Assessment and Plan Anesthesia History Personal History: No History of Anesthesia Complications Family History: No Family History of Anesthesia Complications Exercise Tolerance Exercise Tolerance: Metabolic Equivalents>4 Cardiac & Pulmonary Exam Cardiac Exam: Normal S1/S2 Heart Sounds Pulmonary Exam: Clear Bilateral Breath Sounds Implantable Cardiac Device Does patient have a Pacemaker or an ICD?: No Airway Exam Known Difficult Airway: No Mallampati Class: 2 Mouth Opening: Normal (> 3cm) Thyromental Distance: Less than 3 cm Neck Range of Motion: Full ROM Neck Circumference: Normal Teeth Condition: Removable Dentures/Plates Upper and Removable Dentures/Plates Lower ASA Classification ASA Score: ASA 3 Emergency Case?: No NPO Status NPO Status: NPO Clears >2 hours, Solids >8 hours Anesthesia Plan Resuscitation Status: Full Code Anesthesia Technique: MAC Anesthesia Airway Planned: Natural Airway Monitors Used: Standard Monitors Preoperative Comments:: 73 yo female for cataract. Sig PMHx: pAfib, CAD, HTN, ALEX, KEVIN, confusion, CKD, JAK2 mutation, DM2, RLS, depression, PVD. ECG: sinus, supra bigem. echo: LVEF 60%, no WMA. mild MR. RVSP 41 mmhg. stress: normal perfusion. EF 59%. Previous Anes: - ECTR, prop, natural airway, no issues. - SVETLANA, chloro spinal, lite prop sedation, no issues. Discussed MAC, would like MKO.
[2024-12-25 10:04] VITALS: BMI 34.0
[2024-12-25] MEDS: Tropicam./Phenyleph. (1/2.5%) 5 ML BTL OS ×3 (10:19→10:32)
[2024-12-25 10:26] VITALS: BP 161/58; PULSE 80; RESP 20; TEMP 35.9; O2SAT 96
[2024-12-25] MEDS: Duovisc Viscoelastic System EACH 1 EACH (11:43)
[2024-12-25] MEDS: Lidocaine 1% Pres-Free 5 ML VIAL (11:43)
[2024-12-25] MEDS: Phenylephrine/Lidocaine (15/10) MG/ML 1 ML VIAL (11:44)
[2024-12-25] MEDS: Moxifloxacin-PF 1 MG/ML VIAL (11:44)
[2024-12-25] MEDS: Povidone-Iodine Ophth 30 ML BTL (11:44)
[2024-12-25] MEDS: Balanced Salt Soln.-PLUS 500 ML BAG OP (11:45)
[2024-12-25] MEDS: Prednisolone 1%, Moxifloxacin 0.5%, Bromfenac 0.09% 5.6ML BTL OS (11:45)
[2024-12-25] MEDS: Tetracaine 0.5% 4 ML BTL OS (11:46)
[2024-12-25 12:02] VITALS: BP 153/51; PULSE 80; RESP 18; TEMP 36.6; O2SAT 97
--- NOTE | 2024-12-25 12:05 | W.PM.DSUDISC ---
Date of service: 12/25/24 Discharge Plan Disposition Patient Disposition: Home Discharge Details Attending Provider: Jamil Vargas Primary Care Provider: Gui Graham. Home Meds and New Rx's Prescriptions: No Action carvedilol 12.5 mg tablet 12.5 mg PO BID Rx Instructions: must administer with a meal/food Mounjaro 2.5 mg/0.5 mL pen injector 2.5 mg subcut QWEEK MDD 2.5 28 Days Qty: 2 12RF Rx Instructions: Inject 2.5 mg subcutaneously once weekly as directed. fentanyl 25 mcg/hr patch 72 hour 1 patch transdermal Q72H MDD 1 patch Qty: 5 0RF Patient Comments: doesn't have one on now (DME) Dexcom G7 Sensor Device See Rx Instructions .Route Qty: 1 11RF Rx Instructions: As directed apixaban 2.5 mg tablet 2.5 mg PO BID Qty: 180 3RF Patient Comments: On Hold cyclobenzaprine 5 mg tablet 5 mg PO QHS Qty: 7 0RF (DME) Dexcom G7 Metal Polisher And Buffer Apprentice Misc See Rx Instructions .Route Qty: 1 0RF Rx Instructions: As directed vibegron 75 mg tablet 75 mg PO DAILY Qty: 90 3RF Rx Instructions: per [facility] [place], for urge incontinence (DME) blood-glucose meter [Accu-Chek Guide Glucose Meter] Misc See Rx Instructions .ROUTE .MEDSUPPLY Qty: 1 0RF Rx Instructions: test as directed (DME) insulin syringe-needle U-100 [BD Insulin Syringe Ultra-Fine] 1 mL 31 gauge x 5/16 syringe See Rx Instructions .ROUTE .MEDSUPPLY Qty: 180 3RF Rx Instructions: 1 injection sq BID folic acid 1 mg tablet 1 mg PO DAILY (DME) Accu-Chek Guide test strips Strip 1 ea Miscellaneous DAILY Qty: 300 3RF Rx Instructions: test 3 x day magnesium 250 mg tablet 500 mg PO QHS atorvastatin 40 mg tablet 40 mg PO DAILY Qty: 90 3RF chlorthalidone 50 mg tablet 100 mg PO DAILY Qty: 180 3RF metformin 500 mg tablet 500 mg PO BID Qty: 180 3RF spironolactone [Aldactone] 25 mg tablet 25 mg PO DAILY Qty: 90 3RF hydroxyurea 500 mg capsule 500 - 1,000 mg PO DAILY Qty: 115 3RF Rx Instructions: 500 mg/day except take 1000 mg Sat and Saturday aspirin [Adult Aspirin Regimen] 81 mg tablet,delayed release (DR/EC) 81 mg PO DAILY (DME) lancets Misc 1 ea Miscellaneous DAILY Qty: 300 3RF Rx Instructions: test 3 x /day furosemide 20 mg tablet 20 mg PO DAILY Qty: 90 3RF duloxetine 60 mg capsule,delayed release(DR/EC) 60 mg PO DAILY Qty: 90 3RF duloxetine 30 mg capsule,delayed release(DR/EC) 30 mg PO DAILY Qty: 90 3RF Rx Instructions: take with a 60 mg capsule to equal 90 mg/day losartan 100 mg tablet 100 mg PO HS Qty: 90 3RF doxycycline hyclate 100 mg capsule 100 mg PO BID Qty: 20 0RF mupirocin 2 % ointment 1 applic topical TID Qty: 15 0RF ibuprofen 600 mg tablet 600 mg PO TID PRN (Reason: pain) Qty: 90 0RF cephalexin 500 mg capsule 500 mg PO QID Patient Comments: TAKE ONE CAPSULE BY MOUTH FOUR TIMES A DAY FOR 7 DAYS insulin glargine [Lantus Solostar U-100 Insulin] 100 unit/mL (3 mL) insulin pen 100 unit subcut HS ferrous sulfate 325 mg (65 mg iron) Tablet 325 mg PO DAILY Qty: 30 0RF ropinirole 8 mg tablet extended release 24 hr 8 mg PO HS Discharge Instructions Stand Alone Forms: DSU Post-Op CataractNan (DSU) Discharge Orders Discharge Orders: Discharge Order (Routine); Ordered 12/25/24 Ordered By: Jamil Vargas DS: Diagnosis Discharge Diagnosis (1) Cortical age-related cataract, left eye: Status: Resolved (2) Nuclear age-related cataract, left eye: Status: Resolved
--- NOTE | 2024-12-25 12:05 | W.PM.OP ---
Operative Note Operative Note PRE-OP DIAGNOSIS: Nuclear/cortical cataract, left eye POST-OP DIAGNOSIS: same PROCEDURE: Cataract extraction using phacoemulsification with intraocular lens implant, left eye SURGEON: Jamil Vargas ANESTHESIA TYPE: Local By Surgeon and MAC Refer to Anesthesia Record PATHOLOGY: none sent COMPLICATIONS: None Patient was transported to: same day Patient's condition: stable Implants: Fabio Clareon [id number] Indications: Progressive decreased vision due to cataract, left eye Procedure Description: CATARACT SURGERY OPERATIVE REPORT PREOPERATIVE DIAGNOSIS: Nuclear/cortical cataract, left eye POSTOPERATIVE DIAGNOSIS: Same OPERATION: Cataract extraction using phacoemulsification with posterior chamber intraocular lens implant, left eye. IOL: IOL [employer] Production Supervisor/Model: Fabio Clareon [id number] IOL Power: + 21.5 diopters IOL Serial Number: [id number] Optic Diameter: 6.0mm Haptic/Overall Diameter: 13.0mm PHACO INFO: Fabio Centurion Vision System with OZil and Active Fluidics Cumulative Dispersed Energy (CDE): 6.63 seconds SURGEON: Jamil Vargas MD, RIZWANA ANESTHESIA: Monitored Anesthesia Care (MAC), with local sub-tenon's anesthetic infiltration COMPLICATIONS: None SPECIMENS: None INDICATIONS FOR PROCEDURE: The patient is a 73-year-old lady with history of diminished visual acuity in her left eye secondary to the development of nuclear/cortical cataract. She is significantly symptomatic that she desires cataract surgery in attempt to improve and maximize her vision. The option of cataract surgery was offered to the patient and she wished to proceed. See office notes for detailed information. PROCEDURE: The correct surgical eye was identified and marked as the left eye and the pupil was dilated in the preoperative area using mydriatics and cycloplegics. The dilated pupil size was 7.0 mm. The patient elected to proceed without oral sedation. The patient was brought to the operating room where cardiopulmonary monitoring was instituted and surgical time-out was performed, confirming the correct operative eye and IOL power. Topical anesthesia was administered and ophthalmic povidone-iodine 5% was instilled into the conjunctival fornices. The naldo-ocular area was prepped with Betadine 10% solution and draped in the usual sterile fashion for intraocular surgery, including an aperture drape. A Tegaderm transparent film dressing was cut in half and used to cover the lashes and lid margins. Care was taken to sequester the lashes and lid margins under the Tegaderm dressing. A lid speculum was placed between the lids of the operative eye and the Fabio LuxOR Revalia operating microscope was maneuvered into position. Tobi scissors were then used to make a conjunctival buttonhole approximately 6mm posterior to the limbus in the inferonasal quadrant. Blunt dissection was carried out to expose bare sclera, and a blunt-tipped sub-tenon?s anesthesia cannula was introduced and passed posteriorly along the globe where non-preserved plain lidocaine was injected into posterior sub-Tenon?s space. A sideport knife was used to make a paracentesis port. Intraocular phenylephrine/lidocaine was injected into the anterior chamber. The anterior chamber was then filled with viscoelastic. A keratome knife was used construct a two-plane clear corneal tunnel extending 2.0mm into clear cornea. A flap was raised on the anterior capsule and capsulorhexis forceps were used to complete a continuous curvilinear capsulorhexis of 5.5 mm. Balanced salt solution was then used to perform cortical cleaving hydrodissection and nuclear hydrodelineation until the lens could be freely rotated within the capsular bag. The lens nucleus was then disassembled and removed within the capsular bag and iris plane using phacoemulsification. Residual cortical material was removed using the irrigation/aspiration handpiece. The posterior capsule was carefully polished to remove as much residual lens epithelial cells as safely possible. The capsular bag was then inflated and the anterior chamber deepened with viscoelastic. The lens implant described above was inserted into the capsular bag using the Fabio Autonome Injector. A Kuglen hook was used to dial the IOL into position. Residual viscoelastic was then removed first from posterior to the IOL, then from the anterior chamber using the I/A handpiece. The lens implant was noted to center nicely within the capsular bag. The incisions were stromally hydrated, and the anterior chamber was reformed using BSS. Then 0.5cc of moxifloxacin 1.0mg/ml were injected into the capsular bag and anterior chamber. The incisions were checked with a Weck spear and found to be secure. Several drops of ophthalmic povidone-iodine 5% were then applied to the eye followed by two drops of combination steroid/NSAID/antibiotic solution. The drapes were removed and a clear plastic protective eye shield was placed over the eye. The patient was then returned to Same Day Surgery in stable condition. Date of Procedure: 12/25/24
--- NOTE | 2024-12-25 12:17 | W.ANESPOSTOP ---
Postoperative Evaluation Date, Time and Location Date Performed: 12/25/24 Time Performed: 12:17 Patient Location: Day Surgery Unit Vital Signs Most Recent Imported Vital Signs: Most Recent Vital Signs Temp Pulse Resp BP Pulse Ox 36.6 C 80 18 153/51 H 97 12/25/24 12:02 12/25/24 12:02 12/25/24 12:02 12/25/24 12:02 12/25/24 12:02 Pain Score Most Recent Pain Score: Most Recent Pain Score Pain Level 0 12/25/24 12:02 Assessment Mental Status: Awake (Alert & Oriented to Patient Baseline) Airway and Respiratory Function: Patent airway with normal (patient baseline) respiratory exam Cardiovascular Function: Hemodynamically Stable Hydration Status: Adequately Hydrated Nausea & Vomiting: No Nausea or Vomiting Pain: Pt. Denies Any Pain Peripheral Nerve Block: Patient did not receive a nerve block
[2024-12-25 12:31] VITALS: BP 150/66; PULSE 76; RESP 16; TEMP 36.5; O2SAT 98
== END 2024-12-25 12:39 | disposition home or self-care (01) ==
LOC: SUR 09:52
PROVIDERS: PCP Family Medicine; Visit Provider Ophthalmology
PROC: (CPT 66984; principal; 2024-12-25 13:00)
DX: H25.12 Age-related nuclear cataract, left eye (principal); H25.012 Cortical age-related cataract, left eye
CPT/HCPCS: 66984; 00123; V2632; J2003

== ENCOUNTER 2024-12-31 12:03 | Outpatient (CLI) | payer MEDICARE, BC, SELFPAY ==
--- NOTE | 2024-12-31 11:30 | DI.RAD_ITS ---
Exam(s) XR KNEE RT 4V AP,LAT,APOLINAR,PAT EXAM: XR KNEE RT 4V AP,LAT,APOLINAR,PAT CLINICAL HISTORY: knee pain. TECHNIQUE: 2D digital imaging was performed. Three views. COMPARISON: CR XR KNEE RT 3V AP,LAT,APOLINAR from 08/17/2019 FINDINGS: BONES: No acute fracture is present. No bony destructive lesion is seen. JOINTS: There is severe narrowing of the medial femoral tibial joint space, similar to prior. There is mild varus angulation. Periarticular spurring is noted throughout. The patellofemoral joint spac e is maintained. No joint effusion is seen. SOFT TISSUE: Normal. IMPRESSION: Severe degenerative changes of the medial femoral tibial joint. DATA REPOSITORY: RADIATION DOSE DELIVERED:
== END 2024-12-31 12:04 | disposition home or self-care (01) ==
LOC: DIORS 12:03
PROVIDERS: PCP Family Medicine; Visit Provider Student in an Organized Health Care Education/Training Program
DX: M17.11 Unilateral primary osteoarthritis, right knee (principal); G56.03 Carpal tunnel syndrome, bilateral upper limbs
CPT/HCPCS: 20610; 99214; J1010; 73564

== ENCOUNTER 2025-01-08 08:01 | Day surgery (SDC) | payer MEDICARE, BC, SELFPAY ==
[2025-01-08] MEDS: Tropicam./Phenyleph. (1/2.5%) 5 ML BTL OD ×3 (09:06→09:21)
[2025-01-08 09:07] VITALS: BP 171/58; PULSE 80; RESP 16; TEMP 36.2; O2SAT 99
--- NOTE | 2025-01-08 09:37 | ANES.PREOP_ITS ---
General Info Date of Service Date Performed: 01/08/25 Height: 5 ft 10 in Weight: 104.7 kg Body Mass Index (BMI): 33.1 Surgical Procedure: Operation Date: 01/08/25 10:40 Proposed Procedure Side Surgeon p Cataract Extraction with IOL Implant Right Jamil Vargas MD Meds Allergies and Home Medications Allergies Allergy/AdvReac Type Severity Reaction Status Date / Time clopidogrel Allergy Skin Rash Verified 01/08/25 09:25 oxybutynin AdvReac Intermediate Reflex Verified 01/08/25 09:25 propoxyphene AdvReac Nausea Verified 01/08/25 09:25 Home Medication ?Medication ?Instructions ?Recorded blood-glucose meter (Accu-Chek #1 ea 03/17/20 Guide Glucose Meter) insulin syringe-needle U-100 1 mL #180 ea 12/06/20 31 gauge x 5/16 (BD Insulin Syringe Ultra-Fine) folic acid 1 mg tablet 1 mg PO DAILY 06/05/22 blood sugar diagnostic (Accu-Chek #300 strips 11/24/22 Guide test strips) blood-glucose,beam worker,cont #1 ea 01/02/23 (Dexcom G7 Chart Reader) magnesium 250 mg tablet 500 mg PO QHS 07/01/23 carvedilol 12.5 mg tablet 12.5 mg PO BID 12/23/23 atorvastatin 40 mg tablet 40 mg PO DAILY #90 tab-caps 01/13/24 chlorthalidone 50 mg tablet 100 mg (2 x 50 mg) PO DAILY #180 01/13/24 tabs metformin 500 mg tablet 500 mg PO BID #180 tabs 01/13/24 spironolactone 25 mg tablet 25 mg PO DAILY #90 tabs 01/13/24 (Aldactone) tirzepatide 2.5 mg/0.5 mL 2.5 mg (0.5 mL) subcut QWEEK 4 02/25/24 subcutaneous pen injector weeks #2 mL (Mounjaro) vibegron 75 mg tablet 75 mg PO DAILY #90 tabs 03/11/24 hydroxyurea 500 mg capsule 500 - 1,000 mg (1 - 2 x 500 mg) PO 04/08/24 DAILY #115 caps ibuprofen 600 mg tablet 600 mg PO TID PRN pain #90 tabs 06/24/24 aspirin 81 mg tablet,delayed 81 mg PO DAILY 08/06/24 release (Adult Aspirin Regimen) ferrous sulfate 325 mg (65 mg 325 mg PO DAILY #30 tabs 09/07/24 iron) tablet ropinirole 8 mg tablet,extended 8 mg PO HS 09/17/24 release 24 hr apixaban 2.5 mg tablet 2.5 mg PO BID #180 tabs 10/06/24 blood-glucose sensor (Dexcom G7 #1 ea 10/06/24 Sensor device) fentanyl 25 mcg/hr transdermal 1 patch transdermal Q72H #5 ea 10/06/24 patch cyclobenzaprine 5 mg tablet 5 mg PO QHS #7 tabs 10/09/24 lancets #300 ea 11/13/24 duloxetine 30 mg capsule,delayed 30 mg PO DAILY #90 caps 12/09/24 release duloxetine 60 mg capsule,delayed 60 mg PO DAILY #90 caps 12/09/24 release furosemide 20 mg tablet 20 mg PO DAILY #90 tabs 12/09/24 losartan 100 mg tablet 100 mg PO HS #90 tabs 12/09/24 doxycycline hyclate 100 mg capsule 100 mg PO BID #20 caps 12/19/24 mupirocin 2 % topical ointment 1 applic topical TID #15 grams 12/19/24 insulin glargine 100 unit/mL (3 100 unit subcut HS 12/23/24 mL) subcutaneous pen (Lantus Solostar U-100 Insulin) Current Visit Medications: Current Medications Generic Name Dose Route Start Last Admin Trade Name Freq PRN Reason Stop Dose Admin Acetaminophen 1,000 mg 01/08/25 06:00 Acetaminophen 500 Mg Tab PO 02/07/25 05:59 Q4H PRN PRN Balanced Salt Solution 500 ml 01/08/25 06:00 Balanced Salt Soln.-Plus 500 Ml Bag OP 02/07/25 05:59 DIRECTED RAMON Miscellaneous Medication 0 ml 01/08/25 06:00 Prednisolone 1%, Moxifloxacin 0.5%, Bromfenac 0.09% 5.6ml Btl OD 02/07/25 05:59 DIRECTED RAMON Miscellaneous Medication 0 ml 01/08/25 06:00 Tropicam./Phenyleph. (1/2.5%) 5 Ml Btl OD 02/07/25 05:59 DIRECTED RAMON Tetracaine HCl 0 ml 01/08/25 06:00 Tetracaine 0.5% 4 Ml Btl OD 02/07/25 05:59 DIRECTED [facility] Active Problems Active Problems: Problem Status Onset Code Nuclear age-related cataract, right eye Acute H25.11 Cortical age-related cataract, left eye Resolved H25.012 Nuclear age-related cataract, left eye Resolved H25.12 Anemia Chronic D64.9 Sadzg-bk-guwsdyd kidney injury Acute N17.9, N18.9 Anemia Chronic D64.9 Acute sinus infection Acute J01.90 Epistaxis Acute R04.0 Paroxysmal A-fib Acute I48.0 Chest pain Acute R07.9 Chronic pain Chronic G89.29 CAD (coronary artery disease) Chronic I25.10 KEVIN (acute kidney injury) Acute N17.9 Acute confusion Acute R41.0 Severe anemia Acute D64.9 Multiple open wounds of right lower leg Acute S81.801A Chronic pain of right lower extremity Acute M79.604, G89.29 Bilateral carpal tunnel syndrome Acute G56.03 Ulnar neuropathy of both upper extremities Acute G56.23 Renal lesion Acute N28.9 Phlegm in throat Acute R09.89 Hand numbness Acute R20.0 Lipodermatosclerosis Acute M79.3 Bladder leak Acute R32 Weight gain Acute R63.5 Rash Acute R21 Change in bowel habits Acute R19.4 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 Essential thrombocythemia Acute D47.3 Type 2 diabetes mellitus with circulatory disorder, with long-term current use of insulin Acute E11.59, Z79.4 Rotator cuff tear arthropathy of right shoulder Acute M75.101, M12.811 Rotator cuff tear arthropathy of left shoulder Acute M75.102, M12.812 Fatigue Acute R53.83 Osteoarthritis of right knee Acute M17.11 Osteoarthritis of right hip Chronic M16.11 RLS (restless legs syndrome) Chronic G25.81 Primary osteoarthritis of right knee Chronic M17.11 Chronic pain of left lower extremity Chronic M79.605, G89.29 Polyp of colon Acute 09/15/09 K63.5 ALEX (obstructive sleep apnea) Chronic 03/11/18 G47.33 Hyperlipidemia Acute 01/14/14 E78.5 History of tobacco use Acute Z87.891 Essential hypertension Acute 08/18/13 I10 Cataracts, both eyes Acute H26.9 B12 deficiency Acute 04/08/15 E53.8 Atherosclerosis of [place] coronary artery Acute I25.10 Hyperlipidemia Chronic E78.5 Hypertension Chronic I10 CAD (coronary artery disease) Chronic I25.10 Peripheral vascular disease Chronic I73.9 Medical History Medical History Venous insufficiency of leg Atrial fibrillation Fracture, femur closed, shaft (05/13/22) (L) Carpal tunnel syndrome (05/16/09) Hypertension History of tobacco abuse Quit 2004 Surgical History Surgical History Status post amputation of lesser toe of right foot History of left hip replacement History of total replacement of left shoulder joint 02/08/23. -hb S/P peripheral artery angioplasty with stent placement Status post below-knee amputation of left lower extremity (2012) History of total right hip replacement (08/03/20) Hx of tubal ligation History of carpal tunnel release Bilaterally Tobacco Smoking/Tobacco Use Status: Former Tobacco Use Passive smoking exposure: Yes Second hand exposure: Yes Alcohol Alcohol Intake: current Alcohol intake frequency: a few times a month Alcohol type: beer and hard liquor Substance Use Substance use: Never Substance use type: does not use Vital Signs and Lab Results Vital Signs Most Recent Vital Signs in EMR: Most Recent Vital Signs Temp Pulse Resp BP Pulse Ox 36.2 C L 80 16 171/58 H 99 01/08/25 09:07 01/08/25 09:07 01/08/25 09:07 01/08/25 09:07 01/08/25 09:07 Lab Results Blood Type / Crossmatch: No Data to Display Complete Blood Count: No Data to Display Complete Metabolic Panel: No Data to Display Liver Function Panel: No Data to Display Coagulation Panel: No Data to Display Cardiac Panel: No Data to Display Arterial Blood Gas: No Data to Display Venous Blood Gas: No Data to Display Pancreas Panel: No Data to Display Thyroid Panel: No Data to Display Infectious Disease: No Data to Display Blood Cultures: No Data to Display Toxicology Panel: No Data to Display Imaging and Studies Imaging and Studies Study information below may be from another EMR and interpreted by another provider. Please see original notes in EMR for more complete details. EKG Summary: 04/2024:Conclusion Sinus rhythm PACs No STEMI Stress Test Summary: 05/07:MPI Conclusion Normal myocardial perfusion without evidence of ischemia or prior infarction EF is 59% with normal wall motion Echocardiogram Summary: Date of study: 08/22/2017 Transthoracic Echocardiography M-mode, complete 2D, complete spectral Doppler, and color Doppler *STUDY CONCLUSIONS* Summary: 1. Left ventricle: The cavity size was normal. Wall thickness was increased in a pattern of mild LVH. Systolic function was hyperdynamic. The estimated ejection fraction was 65-70%. There was an increased relative contribution of atrial contraction to ventricular filling. The tissue Doppler parameters were abnormal. Some parameters suggest diastolic dysfunction grade 1. There was no evidence of elevated ventricular filling pressure by Doppler parameters. 2. Mitral valve: There was mild regurgitation. 3. Left atrium: The atrium was mildly dilated. 4. Right ventricle: The cavity size was normal. Wall thickness was normal. Systolic function was normal. 5. Atrial septum: No defect or patent foramen ovale was identified. 6. Pulmonary arteries: Pulmonary systolic pressure was in the range of 15mm Hg to 25mm Hg. 7. Inferior vena cava: The vessel was patent and normal in size. The respirophasic diameter changes were in the normal range (greater than or equal to 50%), consistent with normal central venous pressure. Anesthesia Assessment and Plan Anesthesia History Personal History: No History of Anesthesia Complications Family History: No Family History of Anesthesia Complications Exercise Tolerance Exercise Tolerance: Metabolic Equivalents>4 Pertinent Negatives Pertinent Negatives: No Symptoms of GERD Cardiac & Pulmonary Exam Cardiac Exam: Other Pulmonary Exam: Clear Bilateral Breath Sounds Implantable Cardiac Device Does patient have a Pacemaker or an ICD?: No Airway Exam Known Difficult Airway: No Mallampati Class: 2 Mouth Opening: Normal (> 3cm) Thyromental Distance: Less than 3 cm Neck Range of Motion: Full ROM Neck Circumference: Normal Teeth Condition: Removable Dentures/Plates Upper and Removable Dentures/Plates Lower ASA Classification ASA Score: ASA 3 Emergency Case?: No NPO Status NPO Status: NPO Clears >2 hours, Solids >8 hours Anesthesia Plan Resuscitation Status: Full Code Anesthesia Technique: MAC Anesthesia Airway Planned: Natural Airway Monitors Used: Standard Monitors
[2025-01-08 09:39] VITALS: BMI 33.1
[2025-01-08] MEDS: Tetracaine 0.5% 4 ML BTL OD (10:24)
[2025-01-08] MEDS: Povidone-Iodine Ophth 30 ML BTL (10:32)
[2025-01-08] MEDS: Duovisc Viscoelastic System EACH 1 EACH (10:32)
[2025-01-08] MEDS: Balanced Salt Soln.-PLUS 500 ML BAG OP (10:33)
[2025-01-08] MEDS: Phenylephrine/Lidocaine (15/10) MG/ML 1 ML VIAL (10:34)
[2025-01-08] MEDS: Lidocaine 1% Pres-Free 5 ML VIAL (10:34)
[2025-01-08] MEDS: Moxifloxacin-PF 1 MG/ML VIAL (10:34)
[2025-01-08] MEDS: Prednisolone 1%, Moxifloxacin 0.5%, Bromfenac 0.09% 5.6ML BTL OD (10:35)
[2025-01-08 10:50] VITALS: BP 140/48; PULSE 70; RESP 16; TEMP 36; O2SAT 96
--- NOTE | 2025-01-08 10:53 | PDOC.DSDIS_ITS ---
Date of service: 01/08/25 Discharge Plan Disposition Patient Disposition: Home Discharge Details Attending Provider: Jamil Vargas Primary Care Provider: Gui Graham. Home Meds and New Rx's Prescriptions: No Action carvedilol 12.5 mg tablet 12.5 mg PO BID Rx Instructions: must administer with a meal/food Mounjaro 2.5 mg/0.5 mL pen injector 2.5 mg subcut QWEEK MDD 2.5 28 Days Qty: 2 12RF Rx Instructions: Inject 2.5 mg subcutaneously once weekly as directed. fentanyl 25 mcg/hr patch 72 hour 1 patch transdermal Q72H MDD 1 patch Qty: 5 0RF Patient Comments: doesn't have one on now (DME) Dexcom G7 Sensor Device See Rx Instructions .Route Qty: 1 11RF Rx Instructions: As directed apixaban 2.5 mg tablet 2.5 mg PO BID Qty: 180 3RF Patient Comments: On Hold cyclobenzaprine 5 mg tablet 5 mg PO QHS Qty: 7 0RF (DME) Dexcom G7 Service Delivery Director Misc See Rx Instructions .Route Qty: 1 0RF Rx Instructions: As directed vibegron 75 mg tablet 75 mg PO DAILY Qty: 90 3RF Rx Instructions: per [facility], for urge incontinence (DME) blood-glucose meter [Accu-Chek Guide Glucose Meter] Misc See Rx Instructions .ROUTE .MEDSUPPLY Qty: 1 0RF Rx Instructions: test as directed (DME) insulin syringe-needle U-100 [BD Insulin Syringe Ultra-Fine] 1 mL 31 gauge x 5/16 syringe See Rx Instructions .ROUTE .MEDSUPPLY Qty: 180 3RF Rx Instructions: 1 injection sq BID folic acid 1 mg tablet 1 mg PO DAILY (DME) Accu-Chek Guide test strips Strip 1 ea Miscellaneous DAILY Qty: 300 3RF Rx Instructions: test 3 x day magnesium 250 mg tablet 500 mg PO QHS atorvastatin 40 mg tablet 40 mg PO DAILY Qty: 90 3RF chlorthalidone 50 mg tablet 100 mg PO DAILY Qty: 180 3RF metformin 500 mg tablet 500 mg PO BID Qty: 180 3RF spironolactone [Aldactone] 25 mg tablet 25 mg PO DAILY Qty: 90 3RF hydroxyurea 500 mg capsule 500 - 1,000 mg PO DAILY Qty: 115 3RF Rx Instructions: 500 mg/day except take 1000 mg Sat and Saturday aspirin [Adult Aspirin Regimen] 81 mg tablet,delayed release (DR/EC) 81 mg PO DAILY (DME) lancets Misc 1 ea Miscellaneous DAILY Qty: 300 3RF Rx Instructions: test 3 x /day furosemide 20 mg tablet 20 mg PO DAILY Qty: 90 3RF duloxetine 60 mg capsule,delayed release(DR/EC) 60 mg PO DAILY Qty: 90 3RF duloxetine 30 mg capsule,delayed release(DR/EC) 30 mg PO DAILY Qty: 90 3RF Rx Instructions: take with a 60 mg capsule to equal 90 mg/day losartan 100 mg tablet 100 mg PO HS Qty: 90 3RF doxycycline hyclate 100 mg capsule 100 mg PO BID Qty: 20 0RF mupirocin 2 % ointment 1 applic topical TID Qty: 15 0RF ibuprofen 600 mg tablet 600 mg PO TID PRN (Reason: pain) Qty: 90 0RF insulin glargine [Lantus Solostar U-100 Insulin] 100 unit/mL (3 mL) insulin pen 100 unit subcut HS ferrous sulfate 325 mg (65 mg iron) Tablet 325 mg PO DAILY Qty: 30 0RF ropinirole 8 mg tablet extended release 24 hr 8 mg PO HS Discharge Instructions Stand Alone Forms: [facility] Post-Op [facility] (DSU) Discharge Orders Discharge Orders: Discharge Order (Routine); Ordered 01/08/25 Ordered By: Jamil Vargas DS: Diagnosis Discharge Diagnosis (1) Nuclear age-related cataract, right eye: Status: Resolved
--- NOTE | 2025-01-08 10:54 | ROE_ITS ---
Operative Note Operative Note PRE-OP DIAGNOSIS: Nuclear cataract, right eye POST-OP DIAGNOSIS: same PROCEDURE: Cataract extraction using phacoemulsification with intraocular lens implant, right eye SURGEON: Jamil Vargas ANESTHESIA TYPE: Local By Surgeon and MAC Refer to Anesthesia Record ESTIMATED BLOOD LOSS: 0 PATHOLOGY: none sent COMPLICATIONS: None Patient was transported to: same day Patient's condition: stable Implants: Fabio Clareon [id number] Indications: Progressive decreased vision due to cataract, right eye Procedure Description: CATARACT SURGERY OPERATIVE REPORT PREOPERATIVE DIAGNOSIS: Nuclear cataract, right eye POSTOPERATIVE DIAGNOSIS: Same OPERATION: Cataract extraction using phacoemulsification with posterior chamber intraocular lens implant, right eye. IOL: IOL Sports Physiotherapist/Model: Fabio Clareon [id number] IOL Power: + 22.0 diopters IOL Serial Number: [id number] Optic Diameter: 6.0mm Haptic/Overall Diameter: 13.0mm PHACO INFO: Fabio Centurion Vision System with OZil and Active Fluidics Cumulative Dispersed Energy (CDE): 8.05 seconds SURGEON: Jamil Vargas MD, RIZWANA ANESTHESIA: Monitored Anesthesia Care (MAC), with local sub-tenon's anesthetic infiltration COMPLICATIONS: None SPECIMENS: None INDICATIONS FOR PROCEDURE: The patient is a 74-year-old lady with history of diminished visual acuity in both eyes secondary to the development bilateral nuclear cataract. She has already undergone cataract surgery in the left eye and is doing well postoperatively. She now presents for cataract surgery in the right eye. See office notes for detailed information. PROCEDURE: The correct surgical eye was identified and marked as the right eye and the pupil was dilated in the preoperative area using mydriatics and cycloplegics. The dilated pupil size was 7.0 mm. Oral sedation was administered in the form of an Imprimis MKO Melt (midazolam 3mg/ketamine 25mg/ondansetron 2mg). The patient was brought to the operating room where cardiopulmonary monitoring was instituted and surgical time-out was performed, confirming the correct operative eye and IOL power. Topical anesthesia was administered and ophthalmic povidone-iodine 5% was instilled into the conjunctival fornices. The naldo-ocular area was prepped with Betadine 10% solution and draped in the usual sterile fashion for intraocular surgery, including an aperture drape. A Tegaderm transparent film dressing was cut in half and used to cover the lashes and lid margins. Care was taken to sequester the lashes and lid margins under the Tegaderm dressing. A lid speculum was placed between the lids of the operative eye and the Fabio LuxOR Revalia operating microscope was maneuvered into position. Tobi scissors were then used to make a conjunctival buttonhole approximately 6mm posterior to the limbus in the inferonasal quadrant. Blunt dissection was carried out to expose bare sclera, and a blunt-tipped sub-tenon?s anesthesia cannula was introduced and passed posteriorly along the globe where non- preserved plain lidocaine was injected into posterior sub-Tenon?s space. A sideport knife was used to make a paracentesis port. Intraocular phenylephrine/lidocaine was injected into the anterior chamber. The anterior chamber was then filled with viscoelastic. A keratome knife was used to construct a two--plane clear corneal tunnel extending 2.0mm into clear cornea. A flap was raised on the anterior capsule and capsulorhexis forceps were used to complete a continuous curvilinear capsulorhexis of 5.0 mm. Balanced salt solution was then used to perform cortical cleaving hydrodissection and nuclear hydrodelineation until the lens could be freely rotated within the capsular bag. The lens nucleus was then disassembled and removed within the capsular bag and iris plane using phacoemulsification. Residual cortical material was removed using the I/A handpiece. The posterior capsule was carefully polished to remove as much residual lens epithelial cells as safely possible. The capsular bag was then inflated and the anterior chamber deepened with cohesive viscoelastic. The lens implant described above was inserted into the capsular bag using the Fabio Autonome Injector. A Kuglen hook was used to dial the IOL into position. Residual viscoelastic was then removed first from posterior to the IOL, then from the anterior chamber using the I/A handpiece. The lens implant was noted to center nicely within the capsular bag. The incisions were stromally hydrated, and the anterior chamber was reformed using BSS. Then 0.5cc of moxifloxacin 1.0mg/ml were injected into the capsular bag and anterior chamber. The incisions were checked with a Weck spear and found to be secure. Several drops of ophthalmic povidone-iodine 5% were then applied to the eye followed by two drops of combination steroid/NSAID/antibiotic solution. The drapes were re moved and a clear plastic protective eye shield was placed over the eye. The patient was then returned to Same Day Surgery in stable condition. Date of Procedure: 01/08/25
[2025-01-08 11:25] VITALS: BP 160/67; PULSE 56; RESP 16; TEMP 35.7; O2SAT 96
--- NOTE | 2025-01-08 12:54 | W.ANESPOSTOP ---
Postoperative Evaluation Date, Time and Location Date Performed: 01/08/25 Time Performed: 11:30 Patient Location: Day Surgery Unit Vital Signs Most Recent Imported Vital Signs: Most Recent Vital Signs Temp Pulse Resp BP Pulse Ox 35.7 C L 56 L 16 160/67 H 96 01/08/25 11:25 01/08/25 11:25 01/08/25 11:25 01/08/25 11:01/08/25 11:25 Pain Score Most Recent Pain Score: Most Recent Pain Score Pain Level 0 01/08/25 11:25 Assessment Mental Status: Awake (Alert & Oriented to Patient Baseline) Airway and Respiratory Function: Patent airway with normal (patient baseline) respiratory exam Cardiovascular Function: Hemodynamically Stable Hydration Status: Adequately Hydrated Nausea & Vomiting: No Nausea or Vomiting Pain: Pt. Denies Any Pain Peripheral Nerve Block: Patient did not receive a nerve block
== END 2025-01-08 11:32 | disposition home or self-care (01) ==
LOC: SUR 08:02
PROVIDERS: PCP Family Medicine; Visit Provider Ophthalmology
PROC: (CPT 66984; principal; 2025-01-08 10:30)
DX: H25.11 Age-related nuclear cataract, right eye (principal); Z98.42 Cataract extraction status, left eye
CPT/HCPCS: 66984; 00123; V2632; J2003

== ENCOUNTER 2025-01-12 11:56 | Outpatient (CLI) | payer MEDICARE, BC, SELFPAY ==
[2025-01-12 12:40] LABS: Absolute Eosinophil Count 0.05 10^3/uL (0.0-0.7); Absolute Lymphocyte Count 1.16 10^3/uL (1.2-3.4); Absolute Monocyte Count 0.64 10^3/uL (0.1-0.8); Absolute Neutrophil Count 13.76 10^3/uL (1.2-6.7); Basophils % 0.6 %; Eosinophils % 0.3 %; HCT 37.3 % (36.0-46.0); HGB 11.1 g/dL (11.2-15.7); Immature Grans % 1.3 %; Lymphocytes % 7.3 %; MCH 29.1 pg (27.0-33.0); MCHC 29.8 % (32.0-36.0); MCV 98 fL (80-95); MPV 10.7 fL (8.0-11.0); Neutrophils % 86.5 %; Platelet Count 505 10^3/uL (130-400); RBC 3.81 10^6/uL (3.93-5.22); RDW 18.7 % (11.7-14.6); RDW-SD 66.8 fL; WBC 15.91 10^3/uL (4.4-10.8)
[2025-01-12 12:54] LABS: Iron 29 ug/dL (50-170); Total Iron Binding Capacity 370 ug/dL (250-450); Transferrin Sat 8 % (15-50)
[2025-01-12 13:08] LABS: ALT 20 U/L (14-59); AST 16 U/L (15-37); Albumin 3.6 g/dL (3.4-5.0); Alkaline Phosphatase 98 U/L (46-116); Anion Gap 10.3 mmol/L (3-11); BUN 49 mg/dL (7-18); Bilirubin, Total 0.5 mg/dL (0.2-1.0); CO2 26.7 mmol/L (21.0-32.0); CREATININE 1.6 mg/dL (0.55-1.02); Calcium 9.3 mg/dL (8.5-10.1); Chloride 106 mmol/L (98-107); Estimated GFR 33.63 (mL/min/1.73m2); Ferritin 9 ng/mL (8-252); Glucose 129 mg/dL (74-106); Potassium 4.7 mmol/L (3.5-5.1); Sodium 143 mmol/L (136-145); Total Protein 7.5 g/dL (6.4-8.2)
== END 2025-01-12 11:57 | disposition home or self-care (01) ==
PROVIDERS: PCP Family Medicine; Visit Provider Internal Medicine Hematology & Oncology
DX: D47.1 Chronic myeloproliferative disease (principal); D47.3 Essential (hemorrhagic) thrombocythemia; D75.839 Thrombocytosis, unspecified
CPT/HCPCS: 36415; 80053; 82728; 83540; 83550; 85025

== ENCOUNTER 2025-01-19 11:16 | Outpatient (CLI) | payer MEDICARE, BC, SELFPAY ==
--- NOTE | 2025-01-19 11:15 | DI.RAD_ITS ---
Exam(s) XR CERVICAL SPINE COMP 4-5V EXAM: XR CERVICAL SPINE COMP 4-5V CLINICAL HISTORY: M54.2 Neck pain, cervicalgia. TECHNIQUE: 2D digital imaging was performed. COMPARISON: CR XR CHEST 2V PA LATERAL from 11/12/2024 FINDINGS: Five views No evidence of fracture, listhesis, nor offset of the spinal laminar line. There is no prevertebral soft tissue swelling. Is multilevel chronic disc space narrowing at each level with the exception of C2-3 which exhibits no rmal disc height. There is mild reversal of the normal curvature of the cervical spine. There is mu ltilevel facet arthropathy. There is a small left-sided C7 cervical rib. On the oblique views there are multilevel small Luschka joint osteophytes identified. No osseous lesions There is a left shoulder reverse prosthesis noted. IMPRESSION: Multilevel chronic degenerative disc disease and facet arthropathy. No fractures nor listhesis. DATA REPOSITORY: RADIATION DOSE DELIVERED:
--- NOTE | 2025-01-19 11:15 | DI.RAD_ITS ---
Exam(s) XR LUMBAR SPINE AP, LAT EXAM: XR LUMBAR SPINE AP, LAT CLINICAL HISTORY: M54.50 Low back pain. TECHNIQUE: 2D digital imaging was performed. COMPARISON: No exams were available for comparison FINDINGS: 3 views No evidence of fracture. There is 1 cm degenerative anterolisthesis of L2 upon L3 and mild disc spac e narrowing at this level. There is more prominent disc space narrowing at L4-5 level. Other disc s paces exhibit relatively preserved height. There is multilevel facet arthropathy. No prominent scol iosis. SI joints appear unremarkable. Bilateral hip prostheses noted. No osseous lesions. IMPRESSION: Degenerative disc disease and degenerative changes as described above. No osseous lesions evident in the lumbar vertebrae. DATA REPOSITORY: RADIATION DOSE DELIVERED:
== END 2025-01-19 11:36 ==
LOC: DI 11:17
PROVIDERS: PCP Family Medicine; Visit Provider Anesthesiology Pain Medicine
DX: M51.360 Other intervertebral disc degeneration, lumbar region with discogenic back pain only (principal); M50.123 Cervical disc disorder at C6-C7 level with radiculopathy
CPT/HCPCS: 72050; 72100

== ENCOUNTER 2025-02-07 17:31 | Emergency (ER) | payer MEDICARE, BC, SELFPAY ==
[2025-02-07 17:51] VITALS: BP 159/75; PULSE 75; RESP 20; TEMP 36.8; O2SAT 92
--- NOTE | 2025-02-07 18:21 | DI.RAD_ITS ---
Exam(s) XR TOE RT SECOND EXAM: XR TOE RT SECOND CLINICAL HISTORY: eval osteo. TECHNIQUE: 2D digital imaging was performed. Three views. COMPARISON: No exams were available for comparison FINDINGS: BONES: Prior amputation of the 4th toe. No acute fracture is present. No bony destructive lesion is seen. JOINTS: No dislocation present. SOFT TISSUE: Swelling. No foreign body or abnormal gas collection. IMPRESSION: No plain film evidence of osteomyelitis. The preliminary [facility] report was reviewed. DATA REPOSITORY: RADIATION DOSE DELIVERED:
[2025-02-07] MEDS: MORPHine IR 15 MG TAB PO (18:59)
[2025-02-07] MEDS: Acetaminophen 500 MG TAB 1000 MG PO (18:59)
[2025-02-07 19:03] LABS: Abs Immature Grans 0.25 10^3/uL (0.0-0.06); Absolute Basophil Count 0.08 10^3/uL (0.0-0.2); Absolute Lymphocyte Count 1.05 10^3/uL (1.2-3.4); Absolute Monocyte Count 0.99 10^3/uL (0.1-0.8); Basophils % 0.6 %; Eosinophils % 0.4 %; HCT 34.8 % (36.0-46.0); HGB 10.2 g/dL (11.2-15.7); Immature Grans % 1.8 %; Lymphocytes % 7.4 %; MCHC 29.3 % (32.0-36.0); MCV 102 fL (80-95); MPV 10.3 fL (8.0-11.0); Neutrophils % 82.8 %; Platelet Count 494 10^3/uL (130-400); RDW 21.2 % (11.7-14.6); RDW-SD 79.3 fL; WBC 14.15 10^3/uL (4.4-10.8)
[2025-02-07 19:21] LABS: ALT 15 U/L (14-59); AST 11 U/L (15-37); Albumin 3.4 g/dL (3.4-5.0); Alkaline Phosphatase 89 U/L (46-116); Anion Gap 5.5 mmol/L (3-11); BUN 34 mg/dL (7-18); Bilirubin, Total 0.3 mg/dL (0.2-1.0); C-Reactive Protein 2.62 mg/dL (<or=0.5); CO2 28.5 mmol/L (21.0-32.0); CREATININE 1.4 mg/dL (0.55-1.02); Chloride 108 mmol/L (98-107); Estimated GFR 39.48 (mL/min/1.73m2); Glucose 135 mg/dL (74-106); Magnesium 1.5 mg/dL (1.8-2.4); Potassium 4.3 mmol/L (3.5-5.1); Sodium 142 mmol/L (136-145); Total Protein 7.2 g/dL (6.4-8.2); Troponin I 14 ng/L (<or=51)
[2025-02-07 19:22] LABS: ESR 35 mm/hr (0-30)
[2025-02-07 19:33] LABS: Absolute Eosinophil Count 0.06 10^3/uL (0.0-0.7); Absolute Neutrophil Count 11.72 10^3/uL (1.2-6.7)
[2025-02-07 19:34] LABS: Anisocytosis 2+; Diff Comment RBC Morph Reviewed; Macrocytosis 1+; Polychromasia Present
[2025-02-07 20:32] LABS: Troponin I 15 ng/L (<or=51)
--- NOTE | 2025-02-07 20:46 | ED.GENADUL_ITS ---
Discharge Plan Disposition Patient Disposition: Home Condition: Stable Discharge Details Clinical Impression: Multiple open wounds of right lower leg, Chronic pain of right lower extremity Primary Care Provider: Gui Graham ED Provider: Pricilla Rivera Home Meds and New Rx's Prescriptions: New doxycycline monohydrate 100 mg capsule 100 mg PO BID 8 Days Qty: 16 0RF morphine 15 mg tablet 15 mg PO Q8H PRNQty: 7 0RF No Action carvedilol 12.5 mg tablet 12.5 mg PO BID Rx Instructions: must administer with a meal/food Mounjaro 2.5 mg/0.5 mL pen injector 2.5 mg subcut QWEEK MDD 2.5 28 Days Qty: 2 12RF Rx Instructions: Inject 2.5 mg subcutaneously once weekly as directed. (DME) Dexcom G7 Sensor Device See Rx Instructions .Route Qty: 1 11RF Rx Instructions: As directed (DME) Dexcom G7 Anchorer Misc See Rx Instructions .Route Qty: 1 0RF Rx Instructions: As directed vibegron 75 mg tablet 75 mg PO DAILY Qty: 90 3RF Rx Instructions: per [facility] gyne, for urge incontinence (DME) blood-glucose meter [Accu-Chek Guide Glucose Meter] Misc See Rx Instructions .ROUTE .MEDSUPPLY Qty: 1 0RF Rx Instructions: test as directed (DME) insulin syringe-needle U-100 [BD Insulin Syringe Ultra-Fine] 1 mL 31 gauge x 5/16 syringe See Rx Instructions .ROUTE .MEDSUPPLY Qty: 180 3RF Rx Instructions: 1 injection sq BID folic acid 1 mg tablet 1 mg PO DAILY (DME) Accu-Chek Guide test strips Strip 1 ea Miscellaneous DAILY Qty: 300 3RF Rx Instructions: test 3 x day magnesium 250 mg tablet 500 mg PO QHS atorvastatin 40 mg tablet 40 mg PO DAILY Qty: 90 3RF chlorthalidone 50 mg tablet 100 mg PO DAILY Qty: 180 3RF metformin 500 mg tablet 500 mg PO BID Qty: 180 3RF spironolactone [Aldactone] 25 mg tablet 25 mg PO DAILY Qty: 90 3RF hydroxyurea 500 mg capsule 500 - 1,000 mg PO DAILY Qty: 115 3RF Rx Instructions: 500 mg/day except take 1000 mg Sat and Saturday aspirin [Adult Aspirin Regimen] 81 mg tablet,delayed release (DR/EC) 81 mg PO DAILY (DME) lancets Misc 1 ea Miscellaneous DAILY Qty: 300 3RF Rx Instructions: test 3 x /day furosemide 20 mg tablet 20 mg PO DAILY Qty: 90 3RF duloxetine 60 mg capsule,delayed release(DR/EC) 60 mg PO DAILY Qty: 90 3RF duloxetine 30 mg capsule,delayed release(DR/EC) 30 mg PO DAILY Qty: 90 3RF Rx Instructions: take with a 60 mg capsule to equal 90 mg/day losartan 100 mg tablet 100 mg PO HS Qty: 90 3RF mupirocin 2 % ointment 1 applic topical TID Qty: 15 0RF ibuprofen 600 mg tablet 600 mg PO TID PRN (Reason: pain) Qty: 90 0RF insulin glargine [Lantus Solostar U-100 Insulin] 100 unit/mL (3 mL) insulin pen 100 unit subcut HS ferrous sulfate 325 mg (65 mg iron) Tablet 325 mg PO DAILY Qty: 30 0RF ropinirole 8 mg tablet extended release 24 hr 8 mg PO HS Discharge Instructions Instructions: Wound Infection Additional Instructions: You were seen in the emergency department today for evaluation of the infected ulcers on your lower right extremity. You had an x-ray of your toe that does not show that the infection is spread to the bone. You had laboratory studies performed and at this time it is safe to trial oral antibiotics. I prescribed you doxycycline, please take all this medication as prescribed until it is gone, even if you start to feel better. Please continue to use Tylenol, and I have sent you some stronger pain medication to use as needed for severe pain. Please follow-up with your primary care provider in the next few days to discuss this visit and any symptoms that change, worsen, or persist. Thank you for allowing us to be part of your care. HPI General Mode of arrival: wheelchair . Date/Time Provider Initiated Documentation: 02/07/25 17:43 . Limitations to Documentation: no limitations . Information obtained by: patient and old records reviewed . HPI Narrative: This is a 74-year-old female patient with a past medical history significant for lipodermatosclerosis, type 2 diabetes, chronic lower extremity ulcers and a history of MRSA infection, presenting for evaluation of worsening infection and ulcerations of the right lower extremity and right second toe the patient reports that she was most recently on doxycycline and Bactroban in December, states that she completed this course and it seemed to improve her symptoms, but gradually they have worsened once more. She sees wound care every 2 weeks, and has noted increased drainage from the wounds. The ulceration on her right second toe is new and of primary concern to her. She reports that she has extensive pain due to these ulcerations, is followed by pain management but does not have anything that she can take at this time. The patient has not had fever, has been eating and drinking typically, and has otherwise been without significant change in her symptoms. She is followed by vascular, as well as dermatology and has scheduled appointments with all of her outpatient providers in the next few weeks. Related Data Home Medications ?Medication ?Instructions ?Recorded ?Confirmed blood-glucose meter (Accu-Chek #1 ea 03/17/20 02/07/25 Guide Glucose Meter) insulin syringe-needle U-100 1 mL #180 ea 12/06/20 02/07/25 31 gauge x 5/16 (BD Insulin Syringe Ultra-Fine) folic acid 1 mg tablet 1 mg PO DAILY 06/05/22 02/07/25 blood sugar diagnostic (Accu-Chek #300 strips 11/24/22 02/07/25 Guide test strips) blood-glucose,student finance specialist,cont #1 ea 01/02/23 02/07/25 (Dexcom G7 Anchorer) magnesium 250 mg tablet 500 mg PO QHS 07/01/23 02/07/25 carvedilol 12.5 mg tablet 12.5 mg PO BID 12/23/23 02/07/25 atorvastatin 40 mg tablet 40 mg PO DAILY #90 tab-caps 01/13/24 02/07/25 chlorthalidone 50 mg tablet 100 mg (2 x 50 mg) PO DAILY #180 01/13/24 02/07/25 tabs metformin 500 mg tablet 500 mg PO BID #180 tabs 01/13/24 02/07/25 spironolactone 25 mg tablet 25 mg PO DAILY #90 tabs 01/13/24 02/07/25 (Aldactone) tirzepatide 2.5 mg/0.5 mL 2.5 mg (0.5 mL) subcut QWEEK 4 02/25/24 02/07/25 subcutaneous pen injector weeks #2 mL (Mounjaro) vibegron 75 mg tablet 75 mg PO DAILY #90 tabs 03/11/24 02/07/25 hydroxyurea 500 mg capsule 500 - 1,000 mg (1 - 2 x 500 mg) PO 04/08/24 02/07/25 DAILY #115 caps ibuprofen 600 mg tablet 600 mg PO TID PRN pain #90 tabs 06/24/24 02/07/25 aspirin 81 mg tablet,delayed 81 mg PO DAILY 08/06/24 02/07/25 release (Adult Aspirin Regimen) ferrous sulfate 325 mg (65 mg 325 mg PO DAILY #30 tabs 09/07/24 02/07/25 iron) tablet ropinirole 8 mg tablet,extended 8 mg PO HS 09/17/24 02/07/25 release 24 hr blood-glucose sensor ([employer] G7 #1 ea 10/06/24 02/07/25 Sensor device) lancets #300 ea 11/13/24 02/07/25 duloxetine 30 mg capsule,delayed 30 mg PO DAILY #90 caps 12/09/24 02/07/25 release duloxetine 60 mg capsule,delayed 60 mg PO DAILY #90 caps 12/09/24 02/07/25 release furosemide 20 mg tablet 20 mg PO DAILY #90 tabs 12/09/24 02/07/25 losartan 100 mg tablet 100 mg PO HS #90 tabs 12/09/24 02/07/25 mupirocin 2 % topical ointment 1 applic topical TID #15 grams 12/19/24 02/07/25 insulin glargine 100 unit/mL (3 100 unit subcut HS 12/23/24 02/07/25 mL) subcutaneous pen (Lantus Solostar U-100 Insulin) doxycycline monohydrate 100 mg 100 mg PO BID 8 days #16 caps 02/07/25 capsule morphine 15 mg immediate release 15 mg PO Q8H PRN #7 tabs 02/07/25 tablet Previous Rx's ?Medication ?Instructions ?Recorded blood-glucose meter (Accu-Chek #1 ea 03/17/20 Guide Glucose Meter) insulin syringe-needle U-100 1 mL #180 ea 12/06/20 31 gauge x 5/16 (BD Insulin Syringe Ultra-Fine) blood sugar diagnostic (Accu-Chek #300 strips 11/24/22 Guide test strips) blood-glucose,student finance specialist,cont #1 ea 01/02/23 (Dexcom G7 Anchorer) atorvastatin 40 mg tablet 40 mg PO DAILY #90 tab-caps 01/13/24 chlorthalidone 50 mg tablet 100 mg (2 x 50 mg) PO DAILY #180 01/13/24 tabs metformin 500 mg tablet 500 mg PO BID #180 tabs 01/13/24 spironolactone 25 mg tablet 25 mg PO DAILY #90 tabs 01/13/24 (Aldactone) tirzepatide 2.5 mg/0.5 mL 2.5 mg (0.5 mL) subcut QWEEK 4 02/25/24 subcutaneous pen injector weeks #2 mL (Mounjaro) vibegron 75 mg tablet 75 mg PO DAILY #90 tabs 03/11/24 hydroxyurea 500 mg capsule 500 - 1,000 mg (1 - 2 x 500 mg) PO 04/08/24 DAILY #115 caps ibuprofen 600 mg tablet 600 mg PO TID PRN pain #90 tabs 06/24/24 ferrous sulfate 325 mg (65 mg 325 mg PO DAILY #30 tabs 09/07/24 iron) tablet blood-glucose sensor (Dexcom G7 #1 ea 10/06/24 Sensor device) lancets #300 ea 11/13/24 duloxetine 30 mg capsule,delayed 30 mg PO DAILY #90 caps 12/09/24 release duloxetine 60 mg capsule,delayed 60 mg PO DAILY #90 caps 12/09/24 release furosemide 20 mg tablet 20 mg PO DAILY #90 tabs 12/09/24 losartan 100 mg tablet 100 mg PO HS #90 tabs 12/09/24 mupirocin 2 % topical ointment 1 applic topical TID #15 grams 12/19/24 doxycycline monohydrate 100 mg 100 mg PO BID 8 days #16 caps 02/07/25 capsule morphine 15 mg immediate release 15 mg PO Q8H PRN #7 tabs 02/07/25 tablet Allergies Allergy/AdvReac Type Severity Reaction Status Date / Time clopidogrel Allergy Skin Rash Verified 02/07/25 17:56 oxybutynin AdvReac Intermediate Reflex Verified 02/07/25 17:56 propoxyphene AdvReac Nausea Verified 02/07/25 17:56 General Stated Complaint: Cellulitis KIMI: 3 Exam Narrative Exam Narrative: Gen: Awake and alert, in no apparent distress HEENT: Non-icteric sclera Neck: Supple Lungs: No apparent respiratory distress, normal respiratory effort. CV: Appears well perfused Abdomen: Non-distended MSK: Status post left lower extremity amputation, right lower extremity with 1+ peripheral edema and extensive ulcerations with serous drainage, she does have a new 1 cm linear ulceration over the top of the right second toe. Induration, redness, and warmth is noted to the level of the [place]. Status post right fourth toe amputation. Pulses are difficult to palpate on the right foot and posterior tibialis region, but we are able to easily Doppler exam and she is warm and well-perfused appearing. Skin: Visualized skin without rashes, cyanosis. Neuro: No obvious focal deficits or facial asymmetry. Speaks in full, clear sentences. Psych: Appropriate for situation. Course Vital Signs Vital signs: Vital Signs Temperature 36.8 C 02/07/25 17:51 Pulse 75 02/07/25 17:51 Respiratory Rate 20 02/07/25 17:51 Blood Pressure 159/75 H 02/07/25 17:51 Pulse Oximetry 92 02/07/25 17:51 Temperature 36.8 C 02/07/25 17:51 Temperature Source Oral 02/07/25 17:51 Pulse 75 02/07/25 17:51 Respiratory Rate 20 02/07/25 17:51 Blood Pressure 159/75 H 02/07/25 17:51 Blood Pressure Position Sitting 02/07/25 17:51 Pulse Oximetry 92 02/07/25 17:51 Oxygen Delivery Method Room Air 02/07/25 17:51 Oxygen Flow Rate 0 02/07/25 17:51 Pain Level 7 02/07/25 18:59 Lab/Test Results Lab/Test Results: Laboratory Tests Range/Units 02/07/25 02/07/25 18:56 20:10 WBC (4.4-10.8) 10^3/uL 14.15 H RBC (3.93-5.22) 10^6/uL 3.40 L Hgb (11.2-15.7) g/dL 10.2 L Hct (36.0-46.0) % 34.8 L MCV (80-95) fL 102 H MCH (27.0-33.0) pg 30.0 MCHC (32.0-36.0) % 29.3 L RDW (11.7-14.6) % 21.2 H Plt Count (130-400) 10^3/uL 494 H MPV (8.0-11.0) fL 10.3 Immature Gran % % 1.8 Neutrophils % % 82.8 Lymphocytes % % 7.4 Monocytes % % 7.0 Eosinophils % % 0.4 Basophils % % 0.6 Nucleated RBC % (0.0-0.3) % 0.0 Absolute Neutrophils (1.2-6.7) 10^3/uL 11.72 H Absolute Lymphocytes (1.2-3.4) 10^3/uL 1.05 L Absolute Monocytes (0.1-0.8) 10^3/uL 0.99 H Absolute Eosinophils (0.0-0.7) 10^3/uL 0.06 Absolute Basophils (0.0-0.2) 10^3/uL 0.08 RBC Morphology See Below Polychromasia Present Anisocytosis 2+ Macrocytosis 1+ ESR (0-30) mm/hr 35 H Sodium (136-145) mmol/L 142 Potassium (3.5-5.1) mmol/L 4.3 Chloride (98-107) mmol/L 108 H Carbon Dioxide (21.0-32.0) mmol/L 28.5 Anion Gap (3-11) mmol/L 5.5 BUN (7-18) mg/dL 34 H Creatinine (0.55-1.02) mg/dL 1.4 H Est GFR (CKD-EPI 2020) (mL/min/1.73m2) 39.48 Glucose (74-106) mg/dL 135 H Calcium (8.5-10.1) mg/dL 9.0 Magnesium (1.8-2.4) mg/dL 1.5 L Total Bilirubin (0.2-1.0) mg/dL 0.3 AST (15-37) U/L 11 L ALT (14-59) U/L 15 Alkaline Phosphatase (46-116) U/L 89 Troponin I (<or=51) ng/L 14 15 C-Reactive Protein (<or=0.5) mg/dL 2.62 H Total Protein (6.4-8.2) g/dL 7.2 Albumin (3.4-5.0) g/dL 3.4 Medical Decision Making This is a 74-year-old female patient presenting for evaluation of acute on chronic worsening of her right lower extremity ulcerations and infection. Differential includes but is not limited to cellulitis, considered abscess and the fluctuance is appreciated and all wounds are draining actively. Considered deeper space infection including osteomyelitis, particularly of that right second toe. The patient has no systemic symptoms nor hemodynamic instability to increase my concern for bacteremia or sepsis. We will obtain laboratory studies to include CBC, CMP, magnesium, troponin, and inflammatory markers. I will obtain an x-ray of the toe, and provide the patient with Tylenol and oral morphine for initial management of symptoms. - I reviewed the patient's labs, the patient has a leukocytosis to 14 which is actually stable or downtrending from her most recent labs, no new anemia or thrombocytopenia. The chemistry panel demonstrates baseline renal dysfunction, no significant electrolyte derangements or evidence of liver dysfunction other than a very mildly low magnesium. Troponin was negative and without increase on 1 hour recheck. CRP and ESR are very slightly elevated to 2.6 and 35 respectively. X-ray imaging shows no evidence of osteomyelitis. I feel that this patient is appropriate for an initial attempt of outpatient antibiosis for her cellulitis. I recommended doxycycline for MRSA coverage given her history, as I do not think Bactrim would be an ideal choice given her kidney dysfunction. I also provided her with a short course of oral narcotics to supplement her Tylenol for her severe ongoing pain. At this time, the patient has had a full medical evaluation and is safe for discharge to home. They are hemodynamically stable, ambulatory, and tolerating PO. They are understanding of the follow-up plan and return precautions. They left our facility without incident. Pricilla Rivera MD Medical Records Medical records reviewed: Yes I reviewed the patient's medical records. Lab Data Lab results reviewed: Yes I reviewed the patient's lab results. Quality:SDOH Health Related Social Needs: Health related social needs feeling lonely/isolated (Z 60.8), education (Z55.6) PFSH All Active Problems (Updated 02/07/25 @ 22:07 by Pricilla Rivera MD) Cervical spondylosis without myelopathy (Acute) Lumbosacral spondylosis without myelopathy (Acute) Chronic pain syndrome (Chronic) Low back pain (Acute) Neck pain (Acute) Anemia (Chronic) Bbcor-ik-kafntim kidney injury (Acute) Anemia (Chronic) Acute sinus infection (Acute) Epistaxis (Acute) Paroxysmal A-fib (Acute) dx in hospital 05/2022 Chest pain (Acute) Chronic pain (Chronic) CAD (coronary artery disease) (Chronic) KEVIN (acute kidney injury) (Acute) Acute confusion (Acute) Severe anemia (Acute) Multiple open wounds of right lower leg (Acute) Chronic pain of right lower extremity (Acute) Bilateral carpal tunnel syndrome (Acute) B/L ECTR: 06/24/2024 Ulnar neuropathy of both upper extremities (Acute) Renal lesion (Acute) Phlegm in throat (Acute) Hand numbness (Acute) Lipodermatosclerosis (Acute) Bladder leak (Acute) Weight gain (Acute) Rash (Acute) Change in bowel habits (Acute) 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 Harvey. Osteoarthritis of right hip (Chronic) Injection under fluoroscopy: 10/01/2019 RLS (restless legs syndrome) (Chronic) Primary osteoarthritis of right knee (Chronic) Chronic pain of left lower extremity (Chronic) await manufacturing quality technician recommendations Polyp of colon (Acute 09/15/09) 09/25 COLONOSCOPY: ONE TUBULAR ADENOMA AND FOUR HYPERPLASTIC POLYPS. ALEX (obstructive sleep apnea) (Chronic 03/11/18) not on CPAP due to bedroom size Hyperlipidemia (Acute 01/14/14) History of tobacco use (Acute) Essential hypertension (Acute 08/18/13) Cataracts, both eyes (Acute) 11/11/15 OPTICAL EXPRESSIONS; EARLY CATARACTS B12 deficiency (Acute 04/08/15) Atherosclerosis of [place] coronary artery (Acute) Stent RCA 2006 Hyperlipidemia (Chronic) Hypertension (Chronic) CAD (coronary artery disease) (Chronic) S/P stent 2004 Peripheral vascular disease (Chronic) S/P right SFA antioplasty an sstenting, 2003. Left DVA to [place] popliteal bypass with [place], 2003. Bypass Left Stent Right 2005 left BKA 08/28 Medical History Venous insufficiency of leg Atrial fibrillation Fracture, femur closed, shaft (05/13/22) (L) Carpal tunnel syndrome (05/16/09) Hypertension History of tobacco abuse Quit 2004 Surgical History Status post amputation of lesser toe of right foot History of left hip replacement History of total replacement of left shoulder joint 02/08/23. -hb S/P peripheral artery angioplasty with stent placement Status post below-knee amputation of left lower extremity (2012) History of total right hip replacement (08/03/20) Hx of tubal ligation History of carpal tunnel release Bilaterally Family History Mother , 74 Neoplasm UTERINE Osteoporosis Uterine cancer Lung cancer Father Lung cancer Sister Neoplasm MELANOMA Breast cancer Sister No problems noted. Sister Skin cancer Brother No problems noted. Son Alcohol abuse Depression Maternal Grandfather Stomach cancer Paternal Grandfather No problems noted. Maternal Grandmother No problems noted. Paternal Grandmother No problems noted. Daughter Depression Social History Smoking/Tobacco Use Status: Former Tobacco Use tobacco type: cigarettes Quit Date: 09/16/04 Tobacco: How many years used: 37 Second Hand Exposure: Yes Smoking risk assessment performed?: Yes Alcohol Intake: current Alcohol Intake frequency: a few times a month Alcohol type: beer and hard liquor Drug use: Never Substance use type: does not use Caregiver/Support person: No Household members: none Housing: house Do you need help understanding health information?: Rarely current occupation: [employer] Pets and animals: Yes Pets and animals: cat(s) Sexually active: No Do you think of yourself as: straight/heterosexual Current gender identity: female What is your relationship status?: How often do you talk on the phone with friends or family?: three or more times per week How often do you get together with friends or relatives?: decline to answer How often do you attend yazdanism or scientologist services?: 1-3 times per year Do you belong to any clubs or organized social groups?: no Panel score (0-1 are the most socially isolated patients): 2 What type of physical activity do you participate in: none Carmelina/Buddhism: Pentecostal Special carmelina needs: No Seatbelt use: always Helmet use: Yes Helmet use: always Drive intox 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 retail delivery driver: No Do you feel safe at home: Yes Do you feel safe in your relationship?: Yes Would you like helpful sources: No
--- NOTE | 2025-02-07 21:46 | DI.VRAD_ITS ---
PROCEDURE INFORMATION: Exam: XR Right Toe(s) Exam date and time: 02/07/2025 8:47 PM Age: 74 years old Clinical indication: Other: Eval osteo TECHNIQUE: Imaging protocol: Radiologic exam of the right toes. Views: Minimum 2 views. COMPARISON: CT - Lower Extremities^TBDE CTA LE [facility] (Adult) 01/15/2024 10:03 AM FINDINGS: Bones/joints: The great toe phalanges are intact without fracture or erosion. Prior amputation of the 4th toe is noted. Mild narrowing is noted at the 1st metatarsophalangeal joint. Soft tissues: Moderate soft tissue swelling is noted in the forefoot. Vasculature: Peripheral arterial vascular calcifications are noted. IMPRESSION: No acute findings. No evidence of osteomyelitis by radiographs. Dictated and Authenticated by: Kirill Spear MD. Orderin St. Lisandro Pleitez MD
[2025-02-07 22:22] VITALS: BP 184/67; PULSE 65; RESP 16; TEMP 36.7; O2SAT 96
[2025-02-07] MEDS: Doxycycline Hyclate 100 MG CAP 400 MG PO (22:30)
[2025-02-07] MEDS: oxyCODONE 5 MG TAB PO (22:30)
== END 2025-02-07 22:31 | disposition home or self-care (01) ==
PROVIDERS: Emergency Provider Emergency Medicine; PCP Family Medicine
DX: E11.622 Type 2 diabetes mellitus with other skin ulcer (principal); L97.218 Non-pressure chronic ulcer of right calf with other specified severity; L98.498 Non-pressure chronic ulcer of skin of other sites with other specified severity; I48.0 Paroxysmal atrial fibrillation; I10 Essential (primary) hypertension; I25.10 Atherosclerotic heart disease of native coronary artery without angina pectoris; Z86.14 Personal history of Methicillin resistant Staphylococcus aureus infection; Z79.85 Long-term (current) use of injectable non-insulin antidiabetic drugs; Z79.82 Long term (current) use of aspirin; Z79.4 Long term (current) use of insulin; Z79.84 Long term (current) use of oral hypoglycemic drugs
CPT/HCPCS: 36415; 80053; 85652; 99284; 73660; 83735; 84484; 85025; 86140

== ENCOUNTER 2025-02-16 18:21 | Inpatient (IN) | payer MEDICARE, BC, SELFPAY ==
[2025-02-16] VITALS (36 sets, daily range): BP systolic 164–206; BP diastolic 46–79; PULSE 77–99; RESP 13–35; TEMP 36.7; O2SAT 79–98
--- NOTE | 2025-02-16 18:26 | W.ED.GENAD ---
Discharge Plan Disposition Patient Disposition: Admit to [facility] Condition: Stable Discharge Details Clinical Impression: Edema of right lower extremity, Pain and swelling of toe of right foot Primary Care Provider: Gui Graham ED Provider: Eder Zuniga [place] Meds and New Rx's Prescriptions: No Action carvedilol 12.5 mg tablet 12.5 mg PO BID Rx Instructions: must administer with a meal/food Mounjaro 2.5 mg/0.5 mL pen injector 2.5 mg subcut QWEEK MDD 2.5 28 Days Qty: 2 12RF Rx Instructions: Inject 2.5 mg subcutaneously once weekly as directed. (DME) Dexcom G7 Sensor Device See Rx Instructions .Route Qty: 1 11RF Rx Instructions: As directed (DME) Dexcom G7 Yarn Polishing Machine Operator Misc See Rx Instructions .Route Qty: 1 0RF Rx Instructions: As directed vibegron 75 mg tablet 75 mg PO DAILY Qty: 90 3RF Rx Instructions: per [facility] gyne, for urge incontinence (DME) blood-glucose meter [Accu-Chek Guide Glucose Meter] Misc See Rx Instructions .ROUTE .MEDSUPPLY Qty: 1 0RF Rx Instructions: test as directed (DME) insulin syringe-needle U-100 [BD Insulin Syringe Ultra-Fine] 1 mL 31 gauge x 5/16 syringe See Rx Instructions .ROUTE .MEDSUPPLY Qty: 180 3RF Rx Instructions: 1 injection sq BID folic acid 1 mg tablet 1 mg PO DAILY (DME) Accu-Chek Guide test strips Strip 1 ea Miscellaneous DAILY Qty: 300 3RF Rx Instructions: test 3 x day magnesium 250 mg tablet 500 mg PO QHS atorvastatin 40 mg tablet 40 mg PO DAILY Qty: 90 3RF chlorthalidone 50 mg tablet 100 mg PO DAILY Qty: 180 3RF spironolactone [Aldactone] 25 mg tablet 25 mg PO DAILY Qty: 90 3RF hydroxyurea 500 mg capsule 500 - 1,000 mg PO DAILY Qty: 115 3RF Rx Instructions: 500 mg/day except take 1000 mg Sat and Saturday aspirin [Adult Aspirin Regimen] 81 mg tablet,delayed release (DR/EC) 81 mg PO DAILY (DME) lancets Misc 1 ea Miscellaneous DAILY Qty: 300 3RF Rx Instructions: test 3 x /day furosemide 20 mg tablet 20 mg PO DAILY Qty: 90 3RF duloxetine 60 mg capsule,delayed release(DR/EC) 60 mg PO DAILY Qty: 90 3RF duloxetine 30 mg capsule,delayed release(DR/EC) 30 mg PO DAILY Qty: 90 3RF Rx Instructions: take with a 60 mg capsule to equal 90 mg/day losartan 100 mg tablet 100 mg PO HS Qty: 90 3RF mupirocin 2 % ointment 1 applic topical TID Qty: 15 0RF ropinirole 8 mg tablet extended release 24 hr 8 mg PO HS Qty: 90 3RF metformin 500 mg tablet 500 mg PO BID Qty: 180 3RF ibuprofen 600 mg tablet 600 mg PO TID PRN (Reason: pain) Qty: 90 0RF insulin glargine [Lantus Solostar U-100 Insulin] 100 unit/mL (3 mL) insulin pen 100 unit subcut HS ferrous sulfate 325 mg (65 mg iron) Tablet 325 mg PO DAILY Qty: 30 0RF HPI General Mode of arrival: ambulatory. Date/Time Provider Initiated Documentation: 02/16/25 18:25. Limitations to Documentation: no limitations. Information obtained by: patient, RN notes reviewed and old records reviewed. HPI Narrative: Patient presents to ED with continued and she thinks worsening leg pain and swelling. She was seen here on February 07 and started on doxycycline. She has longstanding issues related to PVD, DM and lipodermatosclerosis. She is followed by dermatology, vascular, wound care at [facility]. She follows up locally with [facility]. Since being here on the she completed the doxycycline and was seen by wound care at [facility] yesterday. They have continued the doxycycline and have continued basic wound care and dressing. Patient is reporting that the leg continues to feel worse in regards to pain. She is now having difficulty ambulating on her foot because of increasing pain and swelling. She reports that they did attempt to obtain culture from fluid draining from the second right toe which patient feels is now more swollen as well as swelling and pain in the ball of her foot. She is status post left BKA because of PAD. She is status post stenting on the right. She had shaking chills over the weekend. She has had no fever that she is aware of. She has had more difficulty ambulating because of pain and swelling. Related Data Home Medications ?Medication ?Instructions ?Recorded ?Confirmed blood-glucose meter (Accu-Chek #1 ea 03/17/20 02/16/25 Guide Glucose Meter) insulin syringe-needle U-100 1 mL #180 ea 12/06/20 02/16/25 31 gauge x 5/16 (BD Insulin Syringe Ultra-Fine) folic acid 1 mg tablet 1 mg PO DAILY 06/05/22 02/16/25 blood sugar diagnostic (Accu-Chek #300 strips 11/24/22 02/16/25 Guide test strips) blood-glucose,mammography technician,cont #1 ea 01/02/23 02/16/25 (Dexcom G7 Yarn Polishing Machine Operator) magnesium 250 mg tablet 500 mg PO QHS 07/01/23 02/16/25 carvedilol 12.5 mg tablet 12.5 mg PO BID 12/23/23 02/16/25 atorvastatin 40 mg tablet 40 mg PO DAILY #90 tab-caps 01/13/24 02/16/25 chlorthalidone 50 mg tablet 100 mg (2 x 50 mg) PO DAILY #180 01/13/24 02/16/25 tabs spironolactone 25 mg tablet 25 mg PO DAILY #90 tabs 01/13/24 02/16/25 (Aldactone) tirzepatide 2.5 mg/0.5 mL 2.5 mg (0.5 mL) subcut QWEEK 4 02/25/24 02/16/25 subcutaneous pen injector weeks #2 mL (Mounjaro) vibegron 75 mg tablet 75 mg PO DAILY #90 tabs 03/11/24 02/16/25 hydroxyurea 500 mg capsule 500 - 1,000 mg (1 - 2 x 500 mg) PO 04/08/24 02/16/25 DAILY #115 caps ibuprofen 600 mg tablet 600 mg PO TID PRN pain #90 tabs 06/24/24 02/16/25 aspirin 81 mg tablet,delayed 81 mg PO DAILY 08/06/24 02/16/25 release (Adult Aspirin Regimen) ferrous sulfate 325 mg (65 mg 325 mg PO DAILY #30 tabs 09/07/24 02/16/25 iron) tablet blood-glucose sensor (Dexcom G7 #1 ea 10/06/24 02/16/25 Sensor device) lancets #300 ea 11/13/24 02/16/25 duloxetine 30 mg capsule,delayed 30 mg PO DAILY #90 caps 12/09/24 02/16/25 release duloxetine 60 mg capsule,delayed 60 mg PO DAILY #90 caps 12/09/24 02/16/25 release furosemide 20 mg tablet 20 mg PO DAILY #90 tabs 12/09/24 02/16/25 losartan 100 mg tablet 100 mg PO HS #90 tabs 12/09/24 02/16/25 mupirocin 2 % topical ointment 1 applic topical TID #15 grams 12/19/24 02/16/25 insulin glargine 100 unit/mL (3 100 unit subcut HS 12/23/24 02/16/25 mL) subcutaneous pen (Lantus Solostar U-100 Insulin) ropinirole 8 mg tablet,extended 8 mg PO HS #90 tabs 02/09/25 02/16/25 release 24 hr metformin 500 mg tablet 500 mg PO BID #180 tabs 02/15/25 02/16/25 Previous Rx's ?Medication ?Instructions ?Recorded blood-glucose meter (Accu-Chek #1 ea 03/17/20 Guide Glucose Meter) insulin syringe-needle U-100 1 mL #180 ea 12/06/20 31 gauge x 5/16 (BD Insulin Syringe Ultra-Fine) blood sugar diagnostic (Accu-Chek #300 strips 11/24/22 Guide test strips) blood-glucose,mammography technician,cont #1 ea 01/02/23 (Dexcom G7 Yarn Polishing Machine Operator) atorvastatin 40 mg tablet 40 mg PO DAILY #90 tab-caps 01/13/24 chlorthalidone 50 mg tablet 100 mg (2 x 50 mg) PO DAILY #180 01/13/24 tabs spironolactone 25 mg tablet 25 mg PO DAILY #90 tabs 01/13/24 (Aldactone) tirzepatide 2.5 mg/0.5 mL 2.5 mg (0.5 mL) subcut QWEEK 4 02/25/24 subcutaneous pen injector weeks #2 mL (Mounjaro) vibegron 75 mg tablet 75 mg PO DAILY #90 tabs 03/11/24 hydroxyurea 500 mg capsule 500 - 1,000 mg (1 - 2 x 500 mg) PO 04/08/24 DAILY #115 caps ibuprofen 600 mg tablet 600 mg PO TID PRN pain #90 tabs 06/24/24 ferrous sulfate 325 mg (65 mg 325 mg PO DAILY #30 tabs 09/07/24 iron) tablet blood-glucose sensor (Oxatiscom G7 #1 ea 10/06/24 Sensor device) lancets #300 ea 11/13/24 duloxetine 30 mg capsule,delayed 30 mg PO DAILY #90 caps 12/09/24 release duloxetine 60 mg capsule,delayed 60 mg PO DAILY #90 caps 12/09/24 release furosemide 20 mg tablet 20 mg PO DAILY #90 tabs 12/09/24 losartan 100 mg tablet 100 mg PO HS #90 tabs 12/09/24 mupirocin 2 % topical ointment 1 applic topical TID #15 grams 12/19/24 ropinirole 8 mg tablet,extended 8 mg PO HS #90 tabs 02/09/25 release 24 hr metformin 500 mg tablet 500 mg PO BID #180 tabs 02/15/25 Allergies Allergy/AdvReac Type Severity Reaction Status Date / Time clopidogrel Allergy Skin Rash Verified 02/16/25 18:25 oxybutynin AdvReac Intermediate Reflex Verified 02/16/25 18:25 propoxyphene AdvReac Nausea Verified 02/16/25 18:25 General Stated Complaint: Cellulitis KIMI: 3 Exam Narrative Exam Narrative: Const: Elderly female in NAD. VS per triage. HEENT: NC/AT. Normal facial exam. Neck: Supple. Trachea midline. Lungs: Normal respiratory effort. Cor: RRR. Faint palpable DP pulse on right. . Neuro: A+O x 3. Normal speech, mentation. Cranial nerves II - XII grossly intact. No gross motor or sensory deficit. Ext: RLE with swelling and weeping from knee to ankle. Multiple open wounds, no definitive purulent material. Right foot with some swelling. She has fullness and tenderness to the ball of her right foot in the area of the 2nd and 3rd toe. She is status post fourth toe amputation. There is swelling to both the 2nd and 3rd toe though no erythema. No drainage at this point in time. Course Vital Signs Vital signs: Vital Signs Temperature 98.1 F 02/16/25 18:22 Pulse 86 02/16/25 18:22 Respiratory Rate 16 02/16/25 18:22 Blood Pressure 175/63 H 02/16/25 18:22 Pulse Oximetry 92 02/16/25 18:22 Temperature 98.1 F 02/16/25 18:22 Temperature Source Oral 02/16/25 18:22 Pulse 86 02/16/25 18:22 Respiratory Rate 16 02/16/25 18:22 Blood Pressure 175/63 H 02/16/25 18:22 Blood Pressure Position Sitting 02/16/25 18:22 Pulse Oximetry 92 02/16/25 18:22 Oxygen Delivery Method Room Air 02/16/25 18:22 Oxygen Flow Rate 0 02/16/25 18:22 Medical Decision Making Patient presenting to ED with worsening pain and swelling of the right foot and leg. The leg sounds like it has been a chronic intermittent problem. It is quite swollen at this time and is weeping especially from the open wounds. She reports the wounds never completely resolve but when her leg is not swollen like this and more normal in size the wounds tend to heal better. The foot is a little more concerning given the pain and tenderness in the ball of the foot with swelling to the 2nd and 3rd toe. X-rays obtained here on the did not suggest osteomyelitis. Patient feels that the foot is getting worse and she feels that the leg is becoming more swollen and draining. A lot of this appears to be chronic in nature though there are some concerning findings regarding history and physical that would suggest a worsening infection involving the foot. She is diabetic. She clearly has peripheral vascular disease. She has had previous MRSA. I have ordered for IV and labs. I will dose with vancomycin and cefepime as she does not seem to be responding to doxycycline. I am going to hold off on any imaging as I suspect she will require MRI of the foot to rule out osteo-. She probably would benefit from Doppler scan to make sure there is no DVT given the amount of edema in the leg. Patient's white count, sed rate, C-reactive protein remain elevated but stable compared to the . Kidney function also elevated but stable. Will discuss with hospitalist for possible admission pending imaging studies. Have discussed with patient regarding same and she is agreeable. Spoke with hospitalist who accepts to their service for antibiotics and MRI of right foot. Medical Records Medical records reviewed: Yes I reviewed the patient's medical records. Medical records narrative: see MDM Lab Data Lab results reviewed: Yes I reviewed the patient's lab results. Lab results narrative: see MDM Quality:SDOH Health Related Social Needs: Health related social needs feeling lonely/isolated (Z60.8), education (Z55.6) PFSH All Active Problems (Updated 02/16/25 @ 20:27 by Eder Zuniga MD) Pain and swelling of toe of right foot (Acute) Edema of right lower extremity (Acute) Cervical spondylosis without myelopathy (Acute) Lumbosacral spondylosis without myelopathy (Acute) Chronic pain syndrome (Chronic) Low back pain (Acute) Neck pain (Acute) Anemia (Chronic) Nhuqt-vs-nousjrx kidney injury (Acute) Anemia (Chronic) Acute sinus infection (Acute) Epistaxis (Acute) Paroxysmal A-fib (Acute) dx in hospital 05/2022 Chest pain (Acute) Chronic pain (Chronic) CAD (coronary artery disease) (Chronic) KVEIN (acute kidney injury) (Acute) Acute confusion (Acute) Severe anemia (Acute) Multiple open wounds of right lower leg (Acute) Chronic pain of right lower extremity (Acute) Bilateral carpal tunnel syndrome (Acute) B/L ECTR: 06/24/2024 Ulnar neuropathy of both upper extremities (Acute) Renal lesion (Acute) Phlegm in throat (Acute) Hand numbness (Acute) Lipodermatosclerosis (Acute) Bladder leak (Acute) Weight gain (Acute) Rash (Acute) Change in bowel habits (Acute) 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 Harvey. Osteoarthritis of right hip (Chronic) Injection under fluoroscopy: 10/01/2019 RLS (restless legs syndrome) (Chronic) Primary osteoarthritis of right knee (Chronic) Chronic pain of left lower extremity (Chronic) await care program director recommendations Polyp of colon (Acute 09/15/09) 09/25 COLONOSCOPY: ONE TUBULAR ADENOMA AND FOUR HYPERPLASTIC POLYPS. ALEX (obstructive sleep apnea) (Chronic 03/11/18) not on CPAP due to bedroom size Hyperlipidemia (Acute 01/14/14) History of tobacco use (Acute) Essential hypertension (Acute 08/18/13) Cataracts, both eyes (Acute) 11/11/15 OPTICAL EXPRESSIONS; EARLY CATARACTS B12 deficiency (Acute 04/08/15) Atherosclerosis of [place] coronary artery (Acute) Stent RCA 2006 Hyperlipidemia (Chronic) Hypertension (Chronic) CAD (coronary artery disease) (Chronic) S/P stent 2004 Peripheral vascular disease (Chronic) S/P right SFA antioplasty an sstenting, 2003. Left DVA to [place] popliteal bypass with [facility], 2003. Bypass Left Stent Right 2005 left BKA 08/28 Medical History Venous insufficiency of leg Atrial fibrillation Fracture, femur closed, shaft (05/13/22) (L) Carpal tunnel syndrome (05/16/09) Hypertension History of tobacco abuse Quit 2004 Surgical History Status post amputation of lesser toe of right foot History of left hip replacement History of total replacement of left shoulder joint 02/08/23. -hb S/P peripheral artery angioplasty with stent placement Status post below-knee amputation of left lower extremity (2012) History of total right hip replacement (08/03/20) Hx of tubal ligation History of carpal tunnel release Bilaterally Family History Mother , 74 Neoplasm UTERINE Osteoporosis Uterine cancer Lung cancer Father Lung cancer Sister Neoplasm MELANOMA Breast cancer Sister No problems noted. Sister Skin cancer Brother No problems noted. Son Alcohol abuse Depression Maternal Grandfather Stomach cancer Paternal Grandfather No problems noted. Maternal Grandmother No problems noted. Paternal Grandmother No problems noted. Daughter Depression Social History Smoking/Tobacco Use Status: Former Tobacco Use tobacco type: cigarettes Quit Date: 09/16/04 Tobacco: How many years used: 37 Second Hand Exposure: Yes Smoking risk assessment performed?: Yes Alcohol Intake: current Alcohol Intake frequency: a few times a month Alcohol type: beer and hard liquor Drug use: Never Substance use type: does not use Caregiver/Support person: No Household members: none Housing: house Do you need help understanding health information?: Rarely current occupation: [employer] Pets and animals: Yes Pets and animals: cat(s) Sexually active: No Do you think of yourself as: straight/heterosexual Current gender identity: female What is your relationship status?: How often do you talk on the phone with friends or family?: three or more times per week How often do you get together with friends or relatives?: decline to answer How often do you attend latter-day or hinduism services?: 1-3 times per year Do you belong to any clubs or organized social groups?: no Panel score (0-1 are the most socially isolated patients): 2 What type of physical activity do you participate in: none Carmelina/Anabaptist: Mu-Ism Special carmelina needs: No Seatbelt use: always Helmet use: Yes Helmet use: always Drive intox 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 fleet driver: No Do you feel safe at home: Yes Do you feel safe in your relationship?: Yes Would you like helpful sources: No
[2025-02-16 19:15] LABS: Abs Immature Grans 0.13 10^3/uL (0.0-0.06); Absolute Basophil Count 0.06 10^3/uL (0.0-0.2); Absolute Lymphocyte Count 0.92 10^3/uL (1.2-3.4); Basophils % 0.5 %; Eosinophils % 0.2 %; HGB 10.3 g/dL (11.2-15.7); Lymphocytes % 7.1 %; MCH 29.9 pg (27.0-33.0); MCHC 29.4 % (32.0-36.0); MCV 102 fL (80-95); MPV 9.9 fL (8.0-11.0); Monocytes % 5.4 %; Neutrophils % 85.8 %; Platelet Count 458 10^3/uL (130-400); RBC 3.44 10^6/uL (3.93-5.22); RDW-SD 74.7 fL; WBC 12.93 10^3/uL (4.4-10.8)
[2025-02-16 19:17] LABS: Absolute Eosinophil Count 0.03 10^3/uL (0.0-0.7); Absolute Neutrophil Count 11.09 10^3/uL (1.2-6.7); ESR 32 mm/hr (0-30)
[2025-02-16] MEDS: CEFEPIME 2 GM in Normal Saline 100 ML IVPB (19:20)
[2025-02-16 19:32] LABS: Anion Gap 5.8 mmol/L (3-11); BUN 30 mg/dL (7-18); C-Reactive Protein 2.74 mg/dL (<or=0.5); CO2 31.2 mmol/L (21.0-32.0); CREATININE 1.3 mg/dL (0.55-1.02); Calcium 9.2 mg/dL (8.5-10.1); Chloride 107 mmol/L (98-107); Estimated GFR 43.15 (mL/min/1.73m2); Glucose 188 mg/dL (74-106); Sodium 144 mmol/L (136-145)
[2025-02-16] MEDS: VANCOMYCIN 2,000 MG in Normal Saline 500 ML 250 MG IVPB (19:48)
[2025-02-16] MEDS: MORPHine 4 MG/ML SYR IVP (19:48)
--- NOTE | 2025-02-16 23:09 | HPE_ITS ---
Date of service: 02/16/25 Time of Service: 23:10 Assessment and Plan Assessment and plan (1) Cellulitis: Status: Acute Assessment and plan: Obtain blood cultures (after antibiotics have been given) Continue cefepime, vancomycin??verify dose with pharmacy in the morning; history of MRSA growing from right lower extremity wound Continue home meds otherwise Follow kidney function closely--strict I/O, daily weights, renally dose meds, avoid nephrotoxins Hold home oral medications for diabetes and do sliding scale insulin with home dose glargine Ultrasound of her lower extremity on the right given new calf swelling Pain management with Dilaudid She did verify full code with me Contact precautions for MRSA--not ordered but needs to be MRSA nasal swab Patient will need inpatient severity midnight for IV antibiotics, constitutional symptoms associated with her right lower extremity cellulitis in the setting of chronic ulceration and immunocompromise with diabetes. History of Present Illness History of Present Illness Chief Complaint: Pain Narrative: Patient is a 74-year-old woman with a complicated past medical history. She was seen in the emergency room on February 07 and started on doxycycline for her right lower extremity foot swelling and erythema. Per the ED note: She has longstanding issues related to PVD, DM and lipodermatosclerosis. She is followed by dermatology, vascular, wound care at [facility]. She follows up locally with [facility]. Since being here on the she completed the doxycycline and was seen by wound care at [facility] yesterday. They have continued the doxycycline and have continued basic wound care and dressing. Patient is reporting that the leg continues to feel worse in regards to pain. She is now having difficulty ambulating on her foot because of increasing pain and swelling. She reports that they did attempt to obtain culture from fluid draining from the second right toe which patient feels is now more swollen as well as swelling and pain in the ball of her foot. She is status post left BKA because of PAD. She is status post stenting on the right. She had shaking chills over the weekend. She has had no fever that she is aware of. She has had more difficulty ambulating because of pain and swelling. Patient corroborates the story to me. She reports some chills that are not normal for her that have started over the weekend and continue now. She otherwise denies vision changes, headaches, dizziness, lightheadedness, other recent illnesses, fevers, chest pain, trouble breathing, nausea, vomiting, abdominal complaints, numbness/tingling apart from normal, dysuria. She does have swelling in her right lower extremity which is worse than normal with some pain and tension. She does have a nonhealing right johns ulcerated area that has been that way for the last year. Review of Systems Narrative: 10 point review of system performed and pertinent positive negatives are in the HPI above. PFSH All Active Problems (Updated 02/17/25 @ 00:17 by Chidi Morris MD) Cellulitis (Acute) Pain and swelling of toe of right foot (Acute) Edema of right lower extremity (Acute) Cervical spondylosis without myelopathy (Acute) Lumbosacral spondylosis without myelopathy (Acute) Chronic pain syndrome (Chronic) Low back pain (Acute) Neck pain (Acute) Anemia (Chronic) Gealm-ed-kbmvoks kidney injury (Acute) Anemia (Chronic) Acute sinus infection (Acute) Epistaxis (Acute) Paroxysmal A-fib (Acute) dx in hospital 05/2022 Chest pain (Acute) Chronic pain (Chronic) CAD (coronary artery disease) (Chronic) KEVIN (acute kidney injury) (Acute) Acute confusion (Acute) Severe anemia (Acute) Multiple open wounds of right lower leg (Acute) Chronic pain of right lower extremity (Acute) Ulnar neuropathy of both upper extremities (Acute) Bilateral carpal tunnel syndrome (Acute) B/L ECTR: 06/24/2024 Renal lesion (Acute) Phlegm in throat (Acute) Hand numbness (Acute) Lipodermatosclerosis (Acute) Bladder leak (Acute) Weight gain (Acute) Rash (Acute) Change in bowel habits (Acute) 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 Harvey. Osteoarthritis of right hip (Chronic) Injection under fluoroscopy: 10/01/2019 RLS (restless legs syndrome) (Chronic) Primary osteoarthritis of right knee (Chronic) Chronic pain of left lower extremity (Chronic) await lead neurodiagnostic technologist recommendations Polyp of colon (Acute 09/15/09) 09/25 COLONOSCOPY: ONE TUBULAR ADENOMA AND FOUR HYPERPLASTIC POLYPS. ALEX (obstructive sleep apnea) (Chronic 03/11/18) not on CPAP due to bedroom size Hyperlipidemia (Acute 01/14/14) History of tobacco use (Acute) Essential hypertension (Acute 08/18/13) Cataracts, both eyes (Acute) 11/11/15 OPTICAL EXPRESSIONS; EARLY CATARACTS B12 deficiency (Acute 04/08/15) Atherosclerosis of [place] coronary artery (Acute) Stent RCA 2006 Hyperlipidemia (Chronic) Hypertension (Chronic) CAD (coronary artery disease) (Chronic) S/P stent 2004 Peripheral vascular disease (Chronic) S/P right SFA antioplasty an sstenting, 2003. Left DVA to [place] popliteal bypass with Walton-Ruben, 2003. Bypass Left Stent Right 2005 left BKA 08/28 Medical History Venous insufficiency of leg Atrial fibrillation Fracture, femur closed, shaft (05/13/22) (L) Carpal tunnel syndrome (05/16/09) Hypertension History of tobacco abuse Quit 2004 Surgical History Status post amputation of lesser toe of right foot History of left hip replacement History of total replacement of left shoulder joint 02/08/23. -hb S/P peripheral artery angioplasty with stent placement Status post below-knee amputation of left lower extremity (2012) History of total right hip replacement (08/03/20) Hx of tubal ligation History of carpal tunnel release Bilaterally Family History Mother , 74 Neoplasm UTERINE Osteoporosis Uterine cancer Lung cancer Father Lung cancer Sister Neoplasm MELANOMA Breast cancer Sister No problems noted. Sister Skin cancer Brother No problems noted. Son Alcohol abuse Depression Maternal Grandfather Stomach cancer Paternal Grandfather No problems noted. Maternal Grandmother No problems noted. Paternal Grandmother No problems noted. Daughter Depression Social History Smoking/Tobacco Use Status: Former Tobacco Use tobacco type: cigarettes Quit Date: 09/16/04 Tobacco: How many years used: 37 Second Hand Exposure: Yes Smoking risk assessment performed?: Yes Alcohol Intake: current Alcohol Intake frequency: a few times a month Alcohol type: beer and hard liquor Drug use: Never Substance use type: does not use Caregiver/Support person: No Household members: none Housing: house Do you need help understanding health information?: Rarely current occupation: [employer] Pets and animals: Yes Pets and animals: cat(s) Sexually active: No Do you think of yourself as: straight/heterosexual Current gender identity: female What is your relationship status?: How often do you talk on the phone with friends or family?: three or more times per week How often do you get together with friends or relatives?: decline to answer How often do you attend scientology or gnosticist services?: 1-3 times per year Do you belong to any clubs or organized social groups?: no Panel score (0-1 are the most socially isolated patients): 2 What type of physical activity do you participate in: none Carmelina/Spiritism: Mormonism Special carmelina needs: No Seatbelt use: always Helmet use: Yes Helmet use: always Drive intox 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 Do you feel safe at home: Yes Do you feel safe in your relationship?: Yes Would you like helpful sources: No Meds Allergies and Home Medications Allergies Allergy/AdvReac Type Severity Reaction Status Date / Time clopidogrel Allergy Skin Rash Verified 02/16/25 18:25 oxybutynin AdvReac Intermediate Reflex Verified 02/16/25 18:25 propoxyphene AdvReac Nausea Verified 02/16/25 18:25 Home Medications ?Medication ?Instructions ?Recorded ?Confirmed ?Type blood-glucose meter (Accu-Chek #1 ea 03/17/20 02/16/25 Rx Guide Glucose Meter) insulin syringe-needle U-100 1 mL #180 ea 12/06/20 02/16/25 Rx 31 gauge x 5/16 (BD Insulin Syringe Ultra-Fine) folic acid 1 mg tablet 1 mg PO DAILY 06/05/22 02/16/25 History blood sugar diagnostic (Accu-Chek #300 strips 11/24/22 02/16/25 Rx Guide test strips) blood-glucose,wellness trainer,cont #1 ea 01/02/23 02/16/25 Rx (Dexcom G7 Gunner Mate) magnesium 250 mg tablet 500 mg PO QHS 07/01/23 02/16/25 History carvedilol 12.5 mg tablet 12.5 mg PO BID 12/23/23 02/16/25 History atorvastatin 40 mg tablet 40 mg PO DAILY #90 tab-caps 01/13/24 02/16/25 Rx chlorthalidone 50 mg tablet 100 mg (2 x 50 mg) PO DAILY #180 01/13/24 02/16/25 Rx tabs spironolactone 25 mg tablet 25 mg PO DAILY #90 tabs 01/13/24 02/16/25 Rx (Aldactone) tirzepatide 2.5 mg/0.5 mL 2.5 mg (0.5 mL) subcut QWEEK 4 02/25/24 02/16/25 Rx subcutaneous pen injector weeks #2 mL (Mounjaro) vibegron 75 mg tablet 75 mg PO DAILY #90 tabs 03/11/24 02/16/25 Rx hydroxyurea 500 mg capsule 500 - 1,000 mg (1 - 2 x 500 mg) PO 04/08/24 02/16/25 Rx DAILY #115 caps ibuprofen 600 mg tablet 600 mg PO TID PRN pain #90 tabs 06/24/24 02/16/25 Rx aspirin 81 mg tablet,delayed 81 mg PO DAILY 08/06/24 02/16/25 History release (Adult Aspirin Regimen) ferrous sulfate 325 mg (65 mg 325 mg PO DAILY #30 tabs 09/07/24 02/16/25 Rx iron) tablet blood-glucose sensor (Dexcom G7 #1 ea 10/06/24 02/16/25 Rx Sensor device) lancets #300 ea 11/13/24 02/16/25 Rx duloxetine 30 mg capsule,delayed 30 mg PO DAILY #90 caps 12/09/24 02/16/25 Rx release duloxetine 60 mg capsule,delayed 60 mg PO DAILY #90 caps 12/09/24 02/16/25 Rx release furosemide 20 mg tablet 20 mg PO DAILY #90 tabs 12/09/24 02/16/25 Rx losartan 100 mg tablet 100 mg PO HS #90 tabs 12/09/24 02/16/25 Rx mupirocin 2 % topical ointment 1 applic topical TID #15 grams 12/19/24 02/16/25 Rx insulin glargine 100 unit/mL (3 100 unit subcut HS 12/23/24 02/16/25 History mL) subcutaneous pen (Lantus Solostar U-100 Insulin) ropinirole 8 mg tablet,extended 8 mg PO HS #90 tabs 02/09/25 02/16/25 Rx release 24 hr metformin 500 mg tablet 500 mg PO BID #180 tabs 02/15/25 02/16/25 Rx Exam Narrative Exam Narrative: Patient is morbidly obese with a left BKA amputation. She is not in any distress and is complaining of the IV in her right arm. She does have paroxysmal A-fib but not on anticoagulation due to nosebleeds. Her heart rhythm was irregular but with a regular rate. Her lungs are clear to auscultation bilaterally. She had no abdominal complaints. Right lower extremity with nonhealing ulcer on the right johns with granulation tissue present but with surrounding tightness and swelling. She does have some receding erythema along the dorsal surface of her right foot with some bruising and serosanguineous drainage. Neurological exam is otherwise intact. Abdominal exam is unremarkable. Results Labs 02/16/25 19:08 02/16/25 19:08 Labs: Laboratory Results - last 24 hr 02/16/25 19:08 WBC 12.93 H RBC 3.44 L Hgb 10.3 L Hct 35.0 L MCV 102 H MCH 29.9 MCHC 29.4 L RDW 20.0 H Plt Count 458 H MPV 9.9 Immature Gran % 1.0 Neutrophils % 85.8 Lymphocytes % 7.1 Monocytes % 5.4 Eosinophils % 0.2 Basophils % 0.5 Nucleated RBC % 0.0 Absolute Neutrophils 11.09 H Absolute Lymphocytes 0.92 L Absolute Monocytes 0.70 Absolute Eosinophils 0.03 Absolute Basophils 0.06 ESR 32 H Sodium 144 Potassium 5.0 Chloride 107 Carbon Dioxide 31.2 Anion Gap 5.8 BUN 30 H Creatinine 1.3 H Est GFR (CKD-EPI 2020) 43.15 Glucose 188 H Calcium 9.2 C-Reactive Protein 2.74 H Last Vital Signs Temp 36.7 C 02/16/25 18:22 Pulse 88 02/16/25 19:50 Resp 21 02/16/25 19:50 BP 178/57 H 02/16/25 19:46 Pulse Ox 89 L 02/16/25 19:50 PAWSS Have you Been Recently Intoxicated or Drunk Within the Last 30 days?: No Have you Ever Experienced Previous Episodes of Alcohol Withdrawal?: No Have you ever Experienced Withdrawal Seizures?: No Have you ever Experienced Delirium Tremens(DT)s?: No Have you ever undergone Alcohol Rehabilitation Treatment (i.e, inpt ot outpatient treatment programs)?: No Have you ever Experienced Blackouts?: No Have you ever Combined Alcohol with other Downers within the last 90 days?: No Have you ever Combined Alcohol with any other Substance of Abuse during the last 90 days?: No Positive Blood Alcohol level on Presentation? [PCS.BAL]: No Evidence of Increased Autonomic Activity (i.e. HR>120, tremor, sweating, agitation, nausea)?: No Result: 0 Time Spent Time spent with Patient: 40-54 minutes Time was spent: preparing to see the patient(eg.review tests), obtaining and/or reviewing separately otained hiistory, ordering medications,tests, procedures, referring, communicating with other health hourly caregiver, indepentently interpreting results and counseling the patient
[2025-02-17] VITALS (7 sets, daily range): BP systolic 146–199; BP diastolic 55–86; PULSE 72–90; RESP 15–20; TEMP 35–36.8; O2SAT 92–94
--- NOTE | 2025-02-17 | DI.US_ITS ---
Exam(s) US LOWER EXTREMITY VENOUS RT EXAM: US LOWER EXTREMITY VENOUS RT CLINICAL HISTORY: swelling TECHNIQUE: Right lower extremity venous ultrasound performed using grayscale, color-flow, and spectr al Doppler analysis. COMPARISON: US US LOWER EXTREMITY VENOUS RT from 07/01/2023 FINDINGS: The right common femoral, femoral and popliteal veins demonstrate normal compressibility, augmentatio n, and color Doppler. The posterior tibial veins are patent. The saphenofemoral junction is unremark able. There is no evidence of a Palmer cyst. The soft tissues are unremarkable. IMPRESSION: No evidence of a right lower extremity DVT. DATA REPOSITORY:
--- NOTE | 2025-02-17 00:21 | W.PC.ACHO ---
Registration Status: Primary Language: Preferred Language: ED Information & Data Chief Complaint Cellulitis 02/16/25 18:33 Triage Note Pain in foot and leg ( 02/16/25 18:22 chronic), has cellulitis in RLE. On second dose of doxy. Patient had chills this weekend. Medical / Surgical History Venous insufficiency of leg Atrial fibrillation Fracture, femur closed, shaft (05/13/22) Carpal tunnel syndrome (05/16/09) Hypertension History of tobacco abuse (Last Reviewed 02/04/25 @ 12:37 by Juli Monroe RN) Status post amputation of lesser toe of right foot History of left hip replacement History of total replacement of left shoulder joint S/P peripheral artery angioplasty with stent placement Status post below-knee amputation of left lower extremity (2012) History of total right hip replacement (08/03/20) Hx of tubal ligation History of carpal tunnel release Most Recent Vital Signs Temperature 36.7 C 02/16/25 18:22 Temperature Source Oral 02/16/25 18:22 Pulse 92 H 02/16/25 23:31 Pulse 91 H 02/16/25 23:50 Respiratory Rate 14 02/16/25 23:50 Blood Pressure 204/60 H 02/16/25 23:31 Blood Pressure Mean 110 02/16/25 23:31 Blood Pressure Position Sitting 02/16/25 18:22 Pulse Oximetry 90 L 02/16/25 23:01 Oxygen Delivery Method Room Air 02/16/25 18:22 Oxygen Flow Rate 0 02/16/25 18:22 Allergies clopidogrel Allergy (Verified 02/16/25 18:25) Skin Rash oxybutynin Adverse Reaction (Intermediate, Verified 02/16/25 18:25) Reflex Esophageal burning, reflux. Symptoms remitted after 4 days d/c. propoxyphene Adverse Reaction (Verified 02/16/25 18:25) Nausea Precautions Isolation Fall precaution 02/16/25 18:29 IV IV Catheter Type [Right Saline Lock Antecubital] IV Catheter Gauge [Right 20 Antecubital] Diagnostics 02/16/25 Range/Units 19:08 WBC 12.93 H (4.4-10.8) 10^3/uL RBC 3.44 L (3.93-5.22) 10^6/uL Hgb 10.3 L (11.2-15.7) g/dL Hct 35.0 L (36.0-46.0) % MCV 102 H (80-95) fL MCH 29.9 (27.0-33.0) pg MCHC 29.4 L (32.0-36.0) % RDW 20.0 H (11.7-14.6) % Plt Count 458 H (130-400) 10^3/uL MPV 9.9 (8.0-11.0) fL Immature Gran % 1.0 % Neutrophils % 85.8 % Lymphocytes % 7.1 % Monocytes % 5.4 % Eosinophils % 0.2 % Basophils % 0.5 % Nucleated RBC % 0.0 (0.0-0.3) % Absolute Neutrophils 11.09 H (1.2-6.7) 10^3/uL Absolute Lymphocytes 0.92 L (1.2-3.4) 10^3/uL Absolute Monocytes 0.70 (0.1-0.8) 10^3/uL Absolute Eosinophils 0.03 (0.0-0.7) 10^3/uL Absolute Basophils 0.06 (0.0-0.2) 10^3/uL ESR 32 H (0-30) mm/hr Sodium 144 (136-145) mmol/L Potassium 5.0 (3.5-5.1) mmol/L Chloride 107 (98-107) mmol/L Carbon Dioxide 31.2 (21.0-32.0) mmol/L Anion Gap 5.8 (3-11) mmol/L BUN 30 H (7-18) mg/dL Creatinine 1.3 H (0.55-1.02) mg/dL Est GFR (CKD-EPI 2020) 43.15 (mL/min/1.73m2) Glucose 188 H (74-106) mg/dL Calcium 9.2 (8.5-10.1) mg/dL C-Reactive Protein 2.74 H (<or=0.5) mg/dL Intake and Output - 24 Hour Total 02/16/25 18:21 thru 02/16/25 21:50 Intake Total 600 Balance 600 Weight 108.862 kg Intake: IV 600 Falls Risk Assessment History of Falls Previous History 02/16/25 19:12 Contributing Factors Impairments 02/16/25 19:12 Ambulatory Aids Uses ambulatory device 02/16/25 19:12 Tubes/Lines None 06/03/25 19:12 Gait Evaluation W/no contributing factors 02/16/25 19:12 Cognition No cognitive impairment 02/16/25 19:12 Fall Total Score 43 02/16/25 19:12 Level of Risk Moderate Risk 02/16/25 19:12 v v v v v v v v v Sending and/or Receiving Nurses: Please use comment section below to note any information pertinent to the patient hand-off not included above. Information / Comments: Patient A&O x 4. Came in for cellulitis of RLE. SP right 4th toe amputation. Patient has amputation and prosthetic right leg. Report received from: Leo
[2025-02-17 04:48] LABS: MRSA PCR Negative (Negative)
[2025-02-17] MEDS: Heparin 5,000 UNITS/ML VIAL 5000 UNITS SC ×3 (05:57→21:42)
[2025-02-17] MEDS: HYDROmorphone 2 MG/ML SYR 1 MG IVP ×4 (06:48→20:11)
[2025-02-17 07:08] LABS: HCT 34.9 % (36.0-46.0); HGB 10.7 g/dL (11.2-15.7); MCH 31.4 pg (27.0-33.0); MCHC 30.7 % (32.0-36.0); MCV 102 fL (80-95); MPV 10.7 fL (8.0-11.0); Platelet Count 464 10^3/uL (130-400); RBC 3.41 10^6/uL (3.93-5.22); RDW 20.4 % (11.7-14.6); RDW-SD 77.9 fL; WBC 13.92 10^3/uL (4.4-10.8)
[2025-02-17 07:21] LABS: ALT 16 U/L (14-59); AST 14 U/L (15-37); Albumin 3.3 g/dL (3.4-5.0); Alkaline Phosphatase 82 U/L (46-116); Anion Gap 5.3 mmol/L (3-11); BUN 30 mg/dL (7-18); Bilirubin, Total 0.4 mg/dL (0.2-1.0); CO2 29.7 mmol/L (21.0-32.0); CREATININE 1.3 mg/dL (0.55-1.02); Calcium 9.2 mg/dL (8.5-10.1); Chloride 106 mmol/L (98-107); Estimated GFR 43.15 (mL/min/1.73m2); Glucose 124 mg/dL (74-106); Potassium 4.6 mmol/L (3.5-5.1); Sodium 141 mmol/L (136-145); Total Protein 7.4 g/dL (6.4-8.2)
[2025-02-17] MEDS: Spironolactone 25 MG TAB PO (07:40)
[2025-02-17] MEDS: Aspirin E.C. 81 MG TABEC PO (07:40)
[2025-02-17] MEDS: DULoxetine 30 MG CAP 90 MG PO (07:40)
[2025-02-17] MEDS: Normal Saline Flush 10 ML SYR IVP ×4 (07:40→20:12)
[2025-02-17] MEDS: CEFEPIME 2 GM in Normal Saline 100 ML IVPB ×2 (07:40→20:13)
[2025-02-17] MEDS: Furosemide 20 MG TAB PO (07:40)
[2025-02-17] MEDS: Carvedilol 12.5 MG TAB PO ×2 (07:40→16:11)
[2025-02-17] MEDS: Hydroxyurea 500 MG CAP 1000 MG PO (09:01)
--- NOTE | 2025-02-17 09:42 | PDOC.CMIN ---
Date of service: 02/17/25 Time of Service: 09:[address] [facility] Initial Assessment Reason for Hospitalization: cellulitis Functional Status/Living Situation Patient Presentation: Emilia presented to the ED last evening with c/o worsening pain and swelling in her right foot. Emilia is followed by [facility] wound care, whom she saw on 02/15. At that time, she was continued on doxycycline (that had been rx'd by ED on 02/07) and continued her basic wound care. She is having difficulty ambulating due to foot pain. Emilia was admitted for IV abx, which she may need detention. Emilia was sitting up in the bed when CM met with her today. Emilia is know to CM from previous admissions. Emilia was very pleasant and eager to catch up. She stated that her pain is terrible, and her wounds just do not seem to be healing. She has been caring for the wounds herself. She stated to CM that her problem is 2 fold, she has problems with both her veins and her arteries, which makes it very difficult to treat her wounds. Emilia stated that she thinks she will lose this leg, too. Emilia denied the offer of a PT consult, and as of this date she does not want any HH services. Town of Residence: [place] Resides with: Child (Son, Ki and granddaughter, Rachel) Significant Other/Family: Local (Rachel Emerson, and daughter Leslye) Employment Status: Retired Instrumental Activities of Daily Living (ADLs): Independent Physical Functioning/Mobility Assistive Device: prosthetic left leg. 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 She uses a cane and some times a walker, especially now with her leg pain Advance Directives Advance Directives: Do you have an Advance Directive: Y 01/15/14 13:08 AD On File at [facility]: Y 11/14/12 10:42 Date Asked AD Date Reviewed 02/16/25 02/16/25 18:22 COLST On File at [facility] No 12/19/24 22:50 COLST Date Scanned Code Status Resuscitation Status Full Code Portal Pt does not currently have a portal and education provided: Yes Insurance Coverage/Financial Issues Insurance: Medicare and BC/BS [place] Care Team Visit Care Team Role Provider Type Shannon Tenorio NP MD [facility] STAFF PHYSICIAN Gui Graham MD Primary Care Provider [facility] STAFF PHYSICIAN Eder Zuniga MD Emergency Provider [facility] STAFF PHYSICIAN Chidi Morris MD Admit Provider [facility] STAFF PHYSICIAN Attending Provider Other: Emilia has an extensive team of specialists including dermatology, vascular, nephrology, gynecology and gyno oncology, neurology, orthopedics, pain clinic Discharge Potential Discharge Needs: PT Evaluation, PCP F/U Appt and Other (Emilia has a vascular appt at [facility] on 02/24) Anticipated Barriers to Discharge: Medical Status (per H&P, Emilia will likely need several days of antibiotics) Patient/Family Education Needs: Review discharge instructions, discuss Ask Me Three Transportation: Private vehicle Plan: Anticipate that Emilia will discharge home once she is medically stable. She will f/u with her community providers and continue per her plan of care. She may benefit from PT/RN services., but is declining at this time. She will transport home in a private vehicle. CM will continue to follow and update the plan as needed. Social Determinants of Health Screening Social Determinants of health last assessed in clinic: 02/17/25 Will the Patient Participate in the Screening?: Yes Do you worry about having a steady place to live?: no Problems where you live: no known problems In the past 12 months, have you had to go without electric, gas, oil or water in your home?: no 1. Within the past 12 months, we worried whether our food would run out before we got money to buy more.: Don't know/refused 2. Within the past 12 months, the food we bought just didn't last and we didn't have money to get more.: Don't know/refused Has lack of transportation kept you from medical appointments or from doing things needed for daily living?: no Has anyone in your life made you feel unsafe or unsupported?: no How hard is it for you to pay for the very basics like food, housing, medical care, and heating? Would you say it is:: Not hard at all Do you want help finding or keeping work or a job?: I do not need or want help If for any reason you need help with day-to-day activities such as bathing, preparing meals, shopping, managing finances, etc., do you get the help you need?: I need a lot more help How often do you feel lonely or isolated from those around you?: Never Do you speak a language other than Chinese at home?: Yes Does the patient want assistance with any of the above?: No Health Related Social Needs Health related social needs: problems with daily activities (Z73.9) and education (Z55.6) Health related social needs details: Amputation left leg PFSH All Active Problems (Updated 02/17/25 @ 00:17 by Chidi Morris MD) Cellulitis (Acute) Pain and swelling of toe of right foot (Acute) Edema of right lower extremity (Acute) Cervical spondylosis without myelopathy (Acute) Lumbosacral spondylosis without myelopathy (Acute) Chronic pain syndrome (Chronic) Low back pain (Acute) Neck pain (Acute) Anemia (Chronic) Wqhxq-lz-qahagys kidney injury (Acute) Anemia (Chronic) Acute sinus infection (Acute) Epistaxis (Acute) Paroxysmal A-fib (Acute) dx in hospital 05/2022 Chest pain (Acute) Chronic pain (Chronic) CAD (coronary artery disease) (Chronic) KEVIN (acute kidney injury) (Acute) Acute confusion (Acute) Severe anemia (Acute) Multiple open wounds of right lower leg (Acute) Chronic pain of right lower extremity (Acute) Bilateral carpal tunnel syndrome (Acute) B/L ECTR: 06/24/2024 Ulnar neuropathy of both upper extremities (Acute) Renal lesion (Acute) Phlegm in throat (Acute) Hand numbness (Acute) Lipodermatosclerosis (Acute) Bladder leak (Acute) Weight gain (Acute) Rash (Acute) Change in bowel habits (Acute) 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 Harvey. Osteoarthritis of right hip (Chronic) Injection under fluoroscopy: 10/01/2019 RLS (restless legs syndrome) (Chronic) Primary osteoarthritis of right knee (Chronic) Chronic pain of left lower extremity (Chronic) await skip tender recommendations Polyp of colon (Acute 09/15/09) 09/25 COLONOSCOPY: ONE TUBULAR ADENOMA AND FOUR HYPERPLASTIC POLYPS. ALEX (obstructive sleep apnea) (Chronic 03/11/18) not on CPAP due to bedroom size Hyperlipidemia (Acute 01/14/14) History of tobacco use (Acute) Essential hypertension (Acute 08/18/13) Cataracts, both eyes (Acute) 11/11/15 OPTICAL EXPRESSIONS; EARLY CATARACTS B12 deficiency (Acute 04/08/15) Atherosclerosis of [place] coronary artery (Acute) Stent RCA 2006 Hyperlipidemia (Chronic) Hypertension (Chronic) CAD (coronary artery disease) (Chronic) S/P stent 2004 Peripheral vascular disease (Chronic) S/P right SFA antioplasty an sstenting, 2003. Left DVA to [place] popliteal bypass with [place], 2003. Bypass Left Stent Right 2005 left BKA 08/28 Medical History Venous insufficiency of leg Atrial fibrillation Fracture, femur closed, shaft (05/13/22) (L) Carpal tunnel syndrome (05/16/09) Hypertension History of tobacco abuse Quit 2004 Surgical History Status post amputation of lesser toe of right foot History of left hip replacement History of total replacement of left shoulder joint 02/08/23. -hb S/P peripheral artery angioplasty with stent placement Status post below-knee amputation of left lower extremity (2012) History of total right hip replacement (08/03/20) Hx of tubal ligation History of carpal tunnel release Bilaterally Family History Mother , 74 Neoplasm UTERINE Osteoporosis Uterine cancer Lung cancer Father Lung cancer Sister Neoplasm MELANOMA Breast cancer Sister No problems noted. Sister Skin cancer Brother No problems noted. Son Alcohol abuse Depression Maternal Grandfather Stomach cancer Paternal Grandfather No problems noted. Maternal Grandmother No problems noted. Paternal Grandmother No problems noted. Daughter Depression Social History Smoking/Tobacco Use Status: Former Tobacco Use tobacco type: cigarettes Quit Date: 09/16/04 Tobacco: How many years used: 37 Second Hand Exposure: Yes Smoking risk assessment performed?: Yes Alcohol Intake: current Alcohol Intake frequency: a few times a month Alcohol type: beer and hard liquor Drug use: Never Substance use type: does not use Caregiver/Support person: No Household members: none Housing: house Do you need help understanding health information?: Rarely current occupation: [employer] Pets and animals: Yes Pets and animals: cat(s) Sexually active: No Do you think of yourself as: straight/heterosexual Current gender identity: female What is your relationship status?: How often do you talk on the phone with friends or family?: three or more times per week How often do you get together with friends or relatives?: decline to answer How often do you attend tenriism or scientology services?: 1-3 times per year Do you belong to any clubs or organized social groups?: no Panel score (0-1 are the most socially isolated patients): 2 What type of physical activity do you participate in: none Carmelina/Taoism: Samaritan Special carmelina needs: No Seatbelt use: always Helmet use: Yes Helmet use: always Drive intox 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
--- NOTE | 2025-02-17 11:36 | CHAPLAIN ---
Emilia was resting in bed when I visited. She shared some personal history and showed me photos of her greatgranddaugahter who is graduating from this weekend. She told me about other grandchildren and great grandchildren. Emilia has a below the knee amputation and has used a prosthetic for several years. She seems to be comfortable being here.
[2025-02-17] MEDS: Insulin Aspart 300 UNITS/3 ML PEN SC ×2 (11:52→21:42)
[2025-02-17] MEDS: VANCOMYCIN/WATER (PEG) 1.5 GM/300 ML BAG IV (11:53)
--- NOTE | 2025-02-17 12:31 | PGE_ITS ---
Date of Service Date of service: 02/17/25 Time of Service: 12:31 Assessment and Plan Assessment and plan (1) Cellulitis: Status: Acute Assessment and plan: Patient receives wound care at [facility] - obtain wound care orders Blood cultures obtained Continue cefepime, vancomycin Continue home meds otherwise Follow kidney function closely--strict I/O, daily weights, renally dose meds, avoid nephrotoxins Hold home oral medications for diabetes and do sliding scale insulin with home dose glargine Ultrasound of her lower extremity on the right given new calf swelling negative for DVT Pain management with Dilaudid Full code (verified) Contact precautions for MRSA MRSA nasal swab negative Wound care consult Subjective Subjective Patient reports: no new complaints, tolerating a regular diet, voiding w/o difficulty, bowel movement and afebrile; denies flatus, diarrhea or nausea Exam Narrative Exam Narrative: Patient is morbidly obese with a left below-knee amputation. She appears comfortable, reporting no distress. She has paroxysmal atrial fibrillation but is not on anticoagulation due to recurrent nosebleeds. Heart rhythm is irregular but with a consistent rate. Lung auscultation is clear bilaterally. No abdominal complaints reported. The right lower extremity shows a non-healing ulcer on the johns with granulation tissue present, but there is tightness and swelling surrounding the area. There is mild erythema on the dorsal surface of the right foot with some bruising and serosanguineous drainage. Neurological exam is otherwise normal. Abdominal exam is unremarkable. Objective Last Vital Signs Temp 36.4 C L 02/17/25 11:40 Pulse 72 02/17/25 11:40 Resp 18 02/17/25 11:40 BP 156/55 H 02/17/25 11:40 Pulse Ox 94 02/17/25 11:40 Laboratory Results - last 24 hr 02/16/25 02/17/25 02/17/25 19:08 01:42 06:24 WBC 12.93 H 13.92 H RBC 3.44 L 3.41 L Hgb 10.3 L 10.7 L Hct 35.0 L 34.9 L MCV 102 H 102 H MCH 29.9 31.4 MCHC 29.4 L 30.7 L RDW 20.0 H 20.4 H Plt Count 458 H 464 H MPV 9.9 10.7 Immature Gran % 1.0 Neutrophils % 85.8 Lymphocytes % 7.1 Monocytes % 5.4 Eosinophils % 0.2 Basophils % 0.5 Nucleated RBC % 0.0 Absolute Neutrophils 11.09 H Absolute Lymphocytes 0.92 L Absolute Monocytes 0.70 Absolute Eosinophils 0.03 Absolute Basophils 0.06 ESR 32 H Sodium 144 141 Potassium 5.0 4.6 Chloride 107 106 Carbon Dioxide 31.2 29.7 Anion Gap 5.8 5.3 BUN 30 H 30 H Creatinine 1.3 H 1.3 H Est GFR (CKD-EPI 2020) 43.15 43.15 Glucose 188 H 124 H Calcium 9.2 9.2 Total Bilirubin 0.4 AST 14 L ALT 16 Alkaline Phosphatase 82 C-Reactive Protein 2.74 H Total Protein 7.4 Albumin 3.3 L MRSA (TEM-PCR) Negative PAWSS Have you Been Recently Intoxicated or Drunk Within the Last 30 days?: No Have you Ever Experienced Previous Episodes of Alcohol Withdrawal?: No Have you ever Experienced Withdrawal Seizures?: No Have you ever Experienced Delirium Tremens(DT)s?: No Have you ever undergone Alcohol Rehabilitation Treatment (i.e, inpt ot outpatient treatment programs)?: No Have you ever Experienced Blackouts?: No Have you ever Combined Alcohol with other Downers within the last 90 days?: No Have you ever Combined Alcohol with any other Substance of Abuse during the last 90 days?: No Positive Blood Alcohol level on Presentation? [PCS.BAL]: No Evidence of Increased Autonomic Activity (i.e. HR>120, tremor, sweating, agitation, nausea)?: No Result: 0 Time Spent with Patient Time Spent with Patient: 25-34 minutes Time was spent: preparing to see the patient(eg.review tests), ordering medications,tests, procedures, referring, communicating with other health career information specialist, indepentently interpreting results, counseling the patient and care coordination
--- NOTE | 2025-02-17 13:54 | PHA.REVIEW2 ---
Pharmacy Admission Review Admission Clinical Review Admission Pharmacy Review: Cellulitis (Acute) clopidogrel Allergy (Verified 02/16/25 18:25) Skin Rash oxybutynin Adverse Reaction (Intermediate, Verified 02/16/25 18:25) Reflex propoxyphene Adverse Reaction (Verified 02/16/25 18:25) Nausea Resuscitation Status Full Code Height 5 ft 10 in Weight 108.862 kg Comments Comments/Follow Ups: Follow up on home med questions (see above) Pharmacy Admission Review Renal Dosing Renal Dosing: BUN 30 mg/dL (7-18) H 02/17/25 06:24 Creatinine 1.3 mg/dL (0.55-1.02) H 02/17/25 06:24 Medications needing adjustments: Reviewed (CrCl 50.73 mL/min) List of meds needing interventions: Current medications are okay Anticoagulation Anticoagulation: Hgb 10.7 g/dL (11.2-15.7) L 02/17/25 06:24 Hct 34.9 % (36.0-46.0) L 02/17/25 06:24 Plt Count 464 10^3/uL (130-400) H 02/17/25 06:24 Creatinine 1.3 mg/dL (0.55-1.02) H 02/17/25 06:24 DVT Prophylaxis: Reviewed Medications: Heparin (q8h) Opiate Usage Evaluate Pain Scale/Pains Meds: Reviewed (hydromorphone 1mg IVP q4h PRN - 1mg / 24hrs - last dose documented as 1ml but should have been 0.5ml, nurse correcting) Scheduled Bowel Reg ordered if on Opiates?: No Relevant Labs Relevant Labs: ESR 32 mm/hr (0-30) H 02/16/25 19:08 Sodium 141 mmol/L (136-145) 02/17/25 06:24 Potassium 4.6 mmol/L (3.5-5.1) 02/17/25 06:24 Chloride 106 mmol/L (98-107) 02/17/25 06:24 C-Reactive Protein 2.74 mg/dL (<or=0.5) H 02/16/25 19:08 Electrolytes, C-Reactive P, ESR: Reviewed DM Control DM Control: Glucose 124 mg/dL (74-106) H 02/17/25 06:24 Finger Stick Blood Glucose 194 1152 Finger Stick Blood Glucose 194 1144 Finger Stick Blood Glucose 194 1144 Finger Stick Blood Glucose 111 0748 Finger Stick Blood Glucose 111 0745 Finger Stick Blood Glucose 111 0745 DM Control: Reviewed Insulin Dosing, Diabetic Medication: Has order for SS insulin and glargine 100units at bedtime Cardiac Review Cardiac Review: Blood Pressure 156/55 1140 Blood Pressure 179/86 0741 BP, HR, EF%: Reviewed (HR WNL) List meds needing interventions: Has orders for carvedilol 12.5mg BID, furosemide 20mg daily, losartan 100mg HS and spironolactone 25mg daily QTc Review QTc: Reviewed (435 from 11/28/24 - most recent EKG on file) IV to PO Switch IV Medications: Reviewed (cefepime, hydromorphone and vancomycin) Home Meds Home Med List reviewed: Intervened Relevent Home Meds Not ordered & why?: ferrous sulfate, folic acid, ibuprofen (PRN), magnesium, metformin (has order for SS insulin), mupirocin ointment, Mounjaro (weekly) and Gemtesa Asked provider about Gemtesa, waiting to hear back Chlorthalidone order pended by overnight pharmacy (per overnight [facility] note says dose is 50mg BID but home med list has 100mg daily). I asked nurse to verify dose with patient but per patient they are not taking this. I informed provider and left order pending for now. Waiting to hear back. Confirmed hydroxyurea dose with patient - per patient takes 2 tablets on Wednesdays and Sundays, and 1 tablet on all other days. Changed order to match. Spironolactone and carvedilol both listed on home med list as not taking but orders put in for both. Informed provider, waiting to hear back. Changed ropinirole to patients own order. Med was brought in, verified, labeled and sent back up to [place]. Current Meds Current Medication Order Review: Intervened Comments: Changed IV ED access order Pharmacy Antibiotic Review Relevant Labs: Relevant Labs 02/16/25 19:08 C-Reactive Protein 2.74 H WBC 13.92 10^3/uL (4.4-10.8) H 02/17/25 06:24 Temperature 36.4 C Temperature 35 C Pharmacy Antibiotic Activity: C/S review and Reviewed, no change Comments: Patient is on cefepime and vancomycin, day 1, for cellulitis. Vancomycin dose 1500mg q24h with predicted trough of 16.6. Order level for 02/19 at 1000 if patient still receiving (prior to 4th dose). Adjust dose as needed based on level. WBC increased from 12.93 and blood cultures are pending. MRSA swab negative but history of MRSA infections. Comments Comments/Follow Ups: Follow up on home med questions (see above)
[2025-02-17 18:49] LABS: Vancomycin, Random 23.5 ug/mL
[2025-02-17] MEDS: Atorvastatin 40 MG TAB PO (20:13)
[2025-02-17] MEDS: Losartan 50 MG TAB 100 MG PO (20:13)
[2025-02-17] MEDS: Insulin Glargine 300 UNITS/3 ML PEN 100 UNITS SC (20:32)
[2025-02-18] MEDS: HYDROmorphone 2 MG/ML SYR 1 MG IVP ×3 (00:23→14:06)
[2025-02-18] MEDS: Normal Saline Flush 10 ML SYR IVP ×5 (00:24→14:06)
[2025-02-18] MEDS: Heparin 5,000 UNITS/ML VIAL 5000 UNITS SC (05:49)
[2025-02-18 06:40] LABS: Abs Immature Grans 0.16 10^3/uL (0.0-0.06); Absolute Basophil Count 0.07 10^3/uL (0.0-0.2); Absolute Eosinophil Count 0.07 10^3/uL (0.0-0.7); Absolute Lymphocyte Count 1.02 10^3/uL (1.2-3.4); Absolute Monocyte Count 0.83 10^3/uL (0.1-0.8); Basophils % 0.5 %; Eosinophils % 0.5 %; HCT 32.9 % (36.0-46.0); HGB 9.8 g/dL (11.2-15.7); Immature Grans % 1.2 %; Lymphocytes % 7.7 %; MCH 30.4 pg (27.0-33.0); MCHC 29.8 % (32.0-36.0); MCV 102 fL (80-95); MPV 10.4 fL (8.0-11.0); Monocytes % 6.3 %; Neutrophils % 83.8 %; Platelet Count 394 10^3/uL (130-400); RBC 3.22 10^6/uL (3.93-5.22); RDW 19.9 % (11.7-14.6); RDW-SD 74.2 fL; WBC 13.21 10^3/uL (4.4-10.8)
[2025-02-18 06:48] LABS: Absolute Neutrophil Count 11.07 10^3/uL (1.2-6.7)
[2025-02-18 07:03] LABS: Anion Gap 7.5 mmol/L (3-11); BUN 30 mg/dL (7-18); CO2 25.5 mmol/L (21.0-32.0); CREATININE 1.4 mg/dL (0.55-1.02); Calcium 8.8 mg/dL (8.5-10.1); Chloride 104 mmol/L (98-107); Estimated GFR 39.48 (mL/min/1.73m2); Glucose 90 mg/dL (74-106); Magnesium 1.4 mg/dL (1.8-2.4); Potassium 4.6 mmol/L (3.5-5.1); Sodium 137 mmol/L (136-145)
[2025-02-18 08:00] VITALS: BP 176/64; PULSE 76; RESP 17; TEMP 36.8; O2SAT 93
[2025-02-18] MEDS: Carvedilol 12.5 MG TAB PO (08:10)
[2025-02-18] MEDS: Aspirin E.C. 81 MG TABEC PO (08:10)
[2025-02-18] MEDS: CEFEPIME 2 GM in Normal Saline 100 ML IVPB (08:10)
[2025-02-18] MEDS: Furosemide 20 MG TAB PO (08:10)
[2025-02-18] MEDS: DULoxetine 30 MG CAP 90 MG PO (08:10)
[2025-02-18] MEDS: Spironolactone 25 MG TAB PO (08:10)
[2025-02-18] MEDS: Hydroxyurea 500 MG CAP PO (08:16)
--- NOTE | 2025-02-18 09:04 | PDOC.CMPRO ---
Date of service: 02/18/25 Time of Service: 09:04 Care Management Progress Note Discharge Potential Discharge Needs: PT Evaluation, PCP F/U Appt and Other (Emilia [place] app[place] [facility] [place] Anticipated Barriers to Discharge: None Identified Patient/Family Education Needs: Review discharge instructions, discuss Ask Me Three Transportation: Private vehicle Plan: Anticipate that Emilia will discharge home once she is medically stable. She will f/u with her community providers and continue per her plan of care. She may benefit from PT/RN services., but is declining at this time. She will transport home in a private vehicle. CM will continue to follow and update the plan as needed. Social Determinants of Health Screening Social Determinants of health last assessed in clinic: 02/17/25 Will the Patient Participate in the Screening?: Yes Do you worry about having a steady place to live?: no Problems where you live: no known problems In the past 12 months, have you had to go without electric, gas, oil or water in your home?: no Has lack of transportation kept you from medical appointments or from doing things needed for daily living?: no Has anyone in your life made you feel unsafe or unsupported?: no How hard is it for you to pay for the very basics like food, housing, medical care, and heating? Would you say it is:: Not hard at all Do you want help finding or keeping work or a job?: I do not need or want help If for any reason you need help with day-to-day activities such as bathing, preparing meals, shopping, managing finances, etc., do you get the help you need?: I need a lot more help How often do you feel lonely or isolated from those around you?: Never Do you speak a language other than [place]andan at home?: Yes Does the patient want assistance with any of the above?: No Health Related Social Needs Health related social needs: problems with daily activities (Z73.9) and education (Z55.6) Health related social needs details: Amputation left leg
--- NOTE | 2025-02-18 09:56 | W.PM.PROGNOT ---
Date of Service Date of service: 02/18/25 Time of Service: 09:56 Objective Last Vital Signs Temp 36.8 C 02/18/25 08:00 Pulse 76 02/18/25 08:00 Resp 17 02/18/25 08:00 BP 176/64 H 02/18/25 08:00 Pulse Ox 93 02/18/25 08:00 Laboratory Results - last 24 hr 02/17/25 02/18/25 18:19 06:18 WBC 13.21 H RBC 3.22 L Hgb 9.8 L Hct 32.9 L MCV 102 H MCH 30.4 MCHC 29.8 L RDW 19.9 H Plt Count 394 MPV 10.4 Immature Gran % 1.2 Neutrophils % 83.8 Lymphocytes % 7.7 Monocytes % 6.3 Eosinophils % 0.5 Basophils % 0.5 Nucleated RBC % 0.0 Absolute Neutrophils 11.07 H Absolute Lymphocytes 1.02 L Absolute Monocytes 0.83 H Absolute Eosinophils 0.07 Absolute Basophils 0.07 Sodium 137 Potassium 4.6 Chloride 104 Carbon Dioxide 25.5 Anion Gap 7.5 BUN 30 H Creatinine 1.4 H Est GFR (CKD-EPI 2020) 39.48 Glucose 90 Calcium 8.8 Magnesium 1.4 L Random Vancomycin 23.5 PAWSS Have you Been Recently Intoxicated or Drunk Within the Last 30 days?: No Have you Ever Experienced Previous Episodes of Alcohol Withdrawal?: No Have you ever Experienced Withdrawal Seizures?: No Have you ever Experienced Delirium Tremens(DT)s?: No Have you ever undergone Alcohol Rehabilitation Treatment (i.e, inpt ot outpatient treatment programs)?: No Have you ever Experienced Blackouts?: No Have you ever Combined Alcohol with other Downers within the last 90 days?: No Have you ever Combined Alcohol with any other Substance of Abuse during the last 90 days?: No Positive Blood Alcohol level on Presentation? [PCS.BAL]: No Evidence of Increased Autonomic Activity (i.e. HR>120, tremor, sweating, agitation, nausea)?: No Result: 0
--- NOTE | 2025-02-18 11:02 | CMDISCH_ITS ---
Date of service: 02/18/25 Time of Service: 02:00 LACE Index Scoring Tool Questions: Length of Stay (in days): 2 Was the patient admitted via the E.D.?: Yes Comorbidities: with End Organ Damage and Liver or Renal Disease E.D. Visits: 6 Answers: Total Score: 14 Risk of Readmission: High Risk Care Management Discharge Plan Reason for Hospitalization: Cellulites Discharge Plan: Emilia is discharged home today with no new services. [place]patient follow up for wound care [place] [facility] Pt will f/u Community providers and her discharge plan of care as directed. Emilia will transport home in a private vehicle. Patient/Family Education Needs: Review discharge instructions and plan for outpatient follow up. Discuss ask me three. SDOH Health Related Social Needs: Health related social needs problems with daily activi ties (Z73.9), education (Z55.6) Health related social needs details Amputation left le g Health related social needs details: Amputation left leg
--- NOTE | 2025-02-18 11:19 | DSE_ITS ---
Date of service: 02/18/25 Time of Service: 11:20 DS: Diagnosis Discharge Diagnosis (1) Cellulitis: Status: Acute Discharge Plan Disposition Patient Disposition: Home Condition: Improving Discharge Details Reason For Visit: Cellulitis Admit Date/Time: 02/16/25 21:19 Admit Provider: Chidi Morris Attending Provider: Chidi Morris Primary Care Provider: Gui Graham Hospital Course Hospital Course: This 74-year-old female patient with a past medical history significant for PVD, left BKA, DM, hyperlipidemia, nicotine dependence , essential hypertension and lipodermatosclerosis followed by dermatology, vascular, wound care at [facility], presented to the ED on 02/16/25 for evaluation of worsening leg pain, sweling and erythema s/p doxycycline initiated on 02/07/25 s/p the emergency room visit. Work-up in the ED was negative fro DVT of the RLE, positive for stable macrocytic anemia, and Cr at 1.4 around baseline. The patient was admitted for right lower extremity cellulitis to the medical surgical floor by the hospitalist with ongoing treatemnt with vancomycin and cefepime. Blood cultures were negative at 24 hours. On the day of discharge the patient was hemodynamically stable and afebrile and will be discharged home on a short course of Bactrim DS. BMP and magnesium blood work ordered for 01/29/25 with results to PCP. PCP follow-up within 7 days of discharge please. Continue dressing and follow-ups as per [facility] [place]. Discussed with Dr. Domingo Home Meds and New Rx's Prescriptions: New sulfamethoxazole-trimethoprim [Bactrim DS] 800-160 mg tablet 1 tab PO BID Qty: 7 0RF Continued carvedilol 12.5 mg tablet 12.5 mg PO BID Rx Instructions: must administer with a meal/food Mounjaro 2.5 mg/0.5 mL pen injector 2.5 mg subcut QWEEK MDD 2.5 28 Days Qty: 2 12RF Rx Instructions: Inject 2.5 mg subcutaneously once weekly as directed. (DME) Dexcom G7 Sensor Device See Rx Instructions .Route Qty: 1 11RF Rx Instructions: As directed (DME) Dexcom G7 Coal Loader Misc See Rx Instructions .Route Qty: 1 0RF Rx Instructions: As directed vibegron 75 mg tablet 75 mg PO DAILY Qty: 90 3RF Rx Instructions: per [facility] [place], for urge incontinence (DME) blood-glucose meter [Accu-Chek Guide Glucose Meter] [facility] [place] See Rx Instructions .ROUTE .MEDSUPPLY Qty: 1 0RF Rx Instructions: test as directed (DME) insulin syringe-needle U-100 [BD Insulin Syringe Ultra-Fine] 1 mL 31 gauge x 5/16 syringe See Rx Instructions .ROUTE .MEDSUPPLY Qty: 180 3RF Rx Instructions: 1 injection sq BID folic acid 1 mg tablet 1 mg PO DAILY (DME) Accu-Chek Guide test strips Strip 1 ea Miscellaneous DAILY Qty: 300 3RF Rx Instructions: test 3 x day magnesium 250 mg tablet 500 mg PO QHS atorvastatin 40 mg tablet 40 mg PO DAILY Qty: 90 3RF spironolactone [Aldactone] 25 mg tablet 25 mg PO DAILY Qty: 90 3RF hydroxyurea 500 mg capsule 500 - 1,000 mg PO DAILY Qty: 115 3RF Rx Instructions: 500 mg/day except take 1000 mg Sat and Saturday aspirin [Adult Aspirin Regimen] 81 mg tablet,delayed release (DR/EC) 81 mg PO DAILY (DME) lancets Misc 1 ea Miscellaneous DAILY Qty: 300 3RF Rx Instructions: test 3 x /day furosemide 20 mg tablet 20 mg PO DAILY Qty: 90 3RF duloxetine 60 mg capsule,delayed release(DR/EC) 60 mg PO DAILY Qty: 90 3RF duloxetine 30 mg capsule,delayed release(DR/EC) 30 mg PO DAILY Qty: 90 3RF Rx Instructions: take with a 60 mg capsule to equal 90 mg/day losartan 100 mg tablet 100 mg PO HS Qty: 90 3RF mupirocin 2 % ointment 1 applic topical TID Qty: 15 0RF ropinirole 8 mg tablet extended release 24 hr 8 mg PO HS Qty: 90 3RF metformin 500 mg tablet 500 mg PO BID Qty: 180 3RF ibuprofen 600 mg tablet 600 mg PO TID PRN (Reason: pain) Qty: 90 0RF insulin glargine [Lantus Solostar U-100 Insulin] 100 unit/mL (3 mL) insulin pen 100 unit subcut HS ferrous sulfate 325 mg (65 mg iron) Tablet 325 mg PO DAILY Qty: 30 0RF No Action chlorthalidone 50 mg tablet 100 mg PO DAILY Qty: 180 3RF Discharge Instructions Stand Alone Forms: Nursing Discharge Form Referrals: Gui Graham MD [Primary Care Provider] - 03/23/25 1:40 pm Activity:: Activity as Tolerated Equipment/Supplies:: As per [facility] Diet:: heart healthy diabetic Discharge Orders Discharge Orders: Discharge Order (Routine); Ordered 02/18/25 Ordered By: Milena Pitts Other Ambulatory Orders: Basic Metabolic Panel (Routine) Timeframe: 20250222 Facility: [facility] - Location: Laboratory Outpatient - [facility] Ordered By: Milena Pitts Magnesium (Routine) Timeframe: 20250222 Facility: [facility] - Location: Laboratory Outpatient - [facility] Ordered By: Milena Pitts DS: Summary Time Spent with Patient providing and/or coordinating discharge services: Greater than 30 minutes Status at Discharge Functional status at discharge: uses cane/walker Overall status at discharge: patient is progressing back to baseline Mental Status: mental status grossly normal Speech and Movement: speech and movement normal Mood: congruent mood Affect: normal affect Quality:SDOH Health Related Social Needs: Health related social needs feeling lonely/isolated (Z 60.8), education (Z55.6) Health related social needs details Amputation left le g Health related social needs details: Amputation left leg Exam Narrative Exam Narrative: Constitutional The patient is without acute distress Neuro:alert and oriented to self, person, place time and situation. No neurological focal deficit, PERRLA Resp: Normal respiratory pattern, speaks in full sentences, unlabored breathing, clear lung bilaterally Cardio: regular rhythm, S1, S2, no murmur, capillary refill<3 sec., bilateral radial and right dorsalis pedis pulses are positive GI: Abdomen is not distended, soft and non tender, bowel sounds are present : Negative Costovertebral angle tenderness, no bladder distension Integumentary: Left BKA healed, RLE improved erhthema, ongoing vascular ulcers with serous drainagein dressing w/o malodor Psych: RASS 0, congruent mood and normal affect. Psych Mental Status: mental status grossly normal Speech and Movement: speech and movement normal Mood: congruent mood Affect: normal affect DS: Data Vitals/I&O Vitals and I&O: Vital Signs Temperature 36.8 C 02/18/25 08:00 Temperature Source Temporal Artery Scan 02/18/25 08:00 Pulse 76 02/18/25 08:00 Pulse 91 H 02/16/25 23:50 Respiratory Rate 17 02/18/25 08:00 Respiratory Effort Normal 02/17/25 00:29 Respiratory Depth Normal 02/17/25 00:29 Blood Pressure 176/64 H 02/18/25 08:00 Blood Pressure Mean 101 02/18/25 08:00 Blood Pressure Position Sitting 02/16/25 18:22 Pulse Oximetry 93 02/18/25 08:00 Oxygen Delivery Method Room Air 02/18/25 08:00 Oxygen Flow Rate 0 02/18/25 08:00 Pain Level 0 02/18/25 08:00 Comment pt requested to be left alone for 3 AM vitals 02/18/25 03:09 Intake & Output 02/17/25 02/17/25 02/18/25 11:59 23:59 11:59 Intake Total 100 / 300 200 / 300 700 / 700 Output Total 200 / 800 600 / 800 600 / 600 Balance -100 / -500 -400 / -500 100 / 100 Weight 108.862 kg 110.4 kg Intake: IV 100 / 300 200 / 300 700 / 700 Output: Urine 200 / 800 600 / 800 600 / 600 Other: Urine Color Yellow Yellow Urine Appearance Cloudy Clear Urine Odor None Comment voids independently Data Completed and Pending Labs on day of discharge: Labs from last 24 hours 02/18/25 02/17/25 06:18 18:19 WBC 13.21 H RBC 3.22 L Hgb 9.8 L Hct 32.9 L MCV 102 H MCH 30.4 MCHC 29.8 L RDW 19.9 H Plt Count 394 MPV 10.4 Immature Gran % 1.2 Neutrophils % 83.8 Lymphocytes % 7.7 Monocytes % 6.3 Eosinophils % 0.5 Basophils % 0.5 Nucleated RBC % 0.0 Absolute Neutrophils 11.07 H Absolute Lymphocytes 1.02 L Absolute Monocytes 0.83 H Absolute Eosinophils 0.07 Absolute Basophils 0.07 Sodium 137 Potassium 4.6 Chloride 104 Carbon Dioxide 25.5 Anion Gap 7.5 BUN 30 H Creatinine 1.4 H Est GFR (CKD-EPI 2020) 39.48 Glucose 90 Calcium 8.8 Magnesium 1.4 L Random Vancomycin 23.5 Preliminary micro results at discharge 02/17/25 00:50 Blood Blood Culture - Preliminary NO GROWTH 24 HOURS 02/17/25 00:40 Blood Blood Culture - Preliminary NO GROWTH 24 HOURS PFSH All Active Problems (Updated 02/18/25 @ 13:38 by Milena Pitts APRN) At risk for electrolyte imbalance (Acute) Cellulitis (Acute) Pain and swelling of toe of right foot (Acute) Edema of right lower extremity (Acute) Cervical spondylosis without myelopathy (Acute) Lumbosacral spondylosis without myelopathy (Acute) Chronic pain syndrome (Chronic) Low back pain (Acute) Neck pain (Acute) Anemia (Chronic) Grciy-pm-wsscuso kidney injury (Acute) Anemia (Chronic) Acute sinus infection (Acute) Epistaxis (Acute) Paroxysmal A-fib (Acute) dx in hospital 05/2022 Chest pain (Acute) Chronic pain (Chronic) CAD (coronary artery disease) (Chronic) KEVIN (acute kidney injury) (Acute) Acute confusion (Acute) Severe anemia (Acute) Multiple open wounds of right lower leg (Acute) Chronic pain of right lower extremity (Acute) Bilateral carpal tunnel syndrome (Acute) B/L ECTR: 06/24/2024 Ulnar neuropathy of both upper extremities (Acute) Renal lesion (Acute) Phlegm in throat (Acute) Hand numbness (Acute) Lipodermatosclerosis (Acute) Bladder leak (Acute) Weight gain (Acute) Rash (Acute) Change in bowel habits (Acute) 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) Essential thrombocythemia (Acute) Managed [place] [facility] [place] with Hydrea Type 2 diabetes mellitus with circulatory disorder, with long-term current use of insulin (Acute) Rotator cuff tear arthropathy of right shoulder (Acute) DEPO MEDROL 09/24/24; 11/09/22 Rotator cuff tear arthropathy of left shoulder (Acute) Fatigue (Acute) Osteoarthritis of right knee (Acute) Steroid Injection: 12/31/24; 12/23/2023 Most recent Synvisc injections: 06/24/2023; 04/10/2022; 09/26/2021 She has been provided with Synvisc injections for many years with Dr. Harvey. Osteoarthritis of right hip (Chronic) Injection under fluoroscopy: 10/01/2019 RLS (restless legs syndrome) (Chronic) Primary osteoarthritis of right knee (Chronic) Chronic pain of left lower extremity (Chronic) await pyroglazer recommendations Polyp of colon (Acute 09/15/09) 09/25 COLONOSCOPY: ONE TUBULAR ADENOMA AND FOUR HYPERPLASTIC POLYPS. ALEX (obstructive sleep apnea) (Chronic 03/11/18) not on CPAP due to bedroom size Hyperlipidemia (Acute 01/14/14) History of tobacco use (Acute) Essential hypertension (Acute 08/18/13) Cataracts, both eyes (Acute) 11/11/15 OPTICAL EXPRESSIONS; EARLY CATARACTS B12 deficiency (Acute 04/08/15) Atherosclerosis of [place] coronary artery (Acute) Stent RCA 2006 Hyperlipidemia (Chronic) Hypertension (Chronic) CAD (coronary artery disease) (Chronic) S/P stent 2004 Peripheral vascular disease (Chronic) S/P right SFA antioplasty an sstenting, 2003. Left DVA to [place] popliteal bypass with [place], 2003. Bypass Left Stent Right 2005 left BKA 08/28 Medical History Venous insufficiency of leg Atrial fibrillation Fracture, femur closed, shaft (05/13/22) (L) Carpal tunnel syndrome (05/16/09) Hypertension History of tobacco abuse Quit 2004 Surgical History Status post amputation of lesser toe of right foot History of left hip replacement History of total replacement of left shoulder joint 02/08/23. -hb S/P peripheral artery angioplasty with stent placement Status post below-knee amputation of left lower extremity (2012) History of total right hip replacement (08/03/20) Hx of tubal ligation History of carpal tunnel release Bilaterally Family History Mother , 74 Neoplasm UTERINE Osteoporosis Uterine cancer Lung cancer Father Lung cancer Sister Neoplasm MELANOMA Breast cancer Sister No problems noted. Sister Skin cancer Brother No problems noted. Son Alcohol abuse Depression Maternal Grandfather Stomach cancer Paternal Grandfather No problems noted. Maternal Grandmother No problems noted. Paternal Grandmother No problems noted. Daughter Depression Social History Smoking/Tobacco Use Status: Former Tobacco Use tobacco type: cigarettes Quit Date: 09/16/04 Tobacco: How many years used: 37 Second Hand Exposure: Yes Smoking risk assessment performed?: Yes Alcohol Intake: current Alcohol Intake frequency: a few times a month Alcohol type: beer and hard liquor Drug use: Never Substance use type: does not use Caregiver/Support person: No Household members: none Housing: house Do you need help understanding health information?: Rarely current occupation: [employer] Pets and animals: Yes Pets and animals: cat(s) Sexually active: No Do you think of yourself as: straight/heterosexual Current gender identity: female What is your relationship status?: How often do you talk on the phone with friends or family?: three or more times per week How often do you get together with friends or relatives?: decline to answer How often do you attend evangelical or sikhism services?: 1-3 times per year Do you belong to any clubs or organized social groups?: no Panel score (0-1 are the most socially isolated patients): 2 What type of physical activity do you participate in: none Carmelina/Pentecostal: Denominational Special carmelina needs: No Seatbelt use: always Helmet use: Yes Helmet use: always Drive intox 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 water 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: No Do you feel safe at home: Yes Do you feel safe in your relationship?: Yes Would you like helpful sources: No Time Spent with Patient Time Spent with Patient: 70-84 minutes4 Time was spent: preparing to see the patient(eg.review tests), obtaining and/or reviewing separately otained hiistory, ordering medications,tests, procedures, referring, communicating with other health primary care physician, indepentently in terpreting results, counseling the patient and care coordination
[2025-02-18] MEDS: MAGNESIUM SULFATE 4 GM/100 ML BAG IV_INF (11:42)
[2025-02-18] MEDS: Sulfameth/Trimeth DS TAB 1 TAB PO (12:06)
[2025-02-18] MEDS: Insulin Aspart 300 UNITS/3 ML PEN SC (12:06)
--- NOTE | 2025-02-18 14:17 | NT_ITS ---
PT Notes Visit Reasons: Cellulitis Per CLINICAL ADMINISTRATIVE COORDINATOR Milena, PT referral was cancelled. Per Nurse Juanjo and RADHA menezes, patient is able to transfer independently with walker and BKA prosthesis.
--- NOTE | 2025-02-18 14:17 | PT.INNT ---
PT Notes Visit Reasons: Cellulitis Per INK BLENDER Milena, PT referral was cancelled. Per Nurse Juanjo and RADHA menezes, patient is able to transfer independently with walker and BKA prosthesis.
== END 2025-02-18 16:32 | disposition home or self-care (01) | DRG 603 ==
LOC: ER 23:47 → MS 02-17 00:16
PROVIDERS: Nurse Practitioner Family; Admitting Provider Internal Medicine; Emergency Provider Emergency Medicine; PCP Family Medicine; Responsible Provider Nurse Practitioner Acute Care; Visit Provider Internal Medicine
DX: L03.115 Cellulitis of right lower limb (principal); L97.518 Non-pressure chronic ulcer of other part of right foot with other specified severity; L97.818 Non-pressure chronic ulcer of other part of right lower leg with other specified severity; N17.9 Acute kidney failure, unspecified; Z79.4 Long term (current) use of insulin; I87.2 Venous insufficiency (chronic) (peripheral); M47.812 Spondylosis without myelopathy or radiculopathy, cervical region; M47.817 Spondylosis without myelopathy or radiculopathy, lumbosacral region; G89.4 Chronic pain syndrome; N18.9 Chronic kidney disease, unspecified; I48.0 Paroxysmal atrial fibrillation; I25.10 Atherosclerotic heart disease of native coronary artery without angina pectoris; D47.3 Essential (hemorrhagic) thrombocythemia; E11.59 Type 2 diabetes mellitus with other circulatory complications; Z89.512 Acquired absence of left leg below knee; G25.81 Restless legs syndrome; G47.33 Obstructive sleep apnea (adult) (pediatric); E78.5 Hyperlipidemia, unspecified; Z87.891 Personal history of nicotine dependence; I12.9 Hypertensive chronic kidney disease with stage 1 through stage 4 chronic kidney disease, or unspecified chronic kidney disease; Z95.5 Presence of coronary angioplasty implant and graft; Z95.828 Presence of other vascular implants and grafts; I73.9 Peripheral vascular disease, unspecified; Z96.643 Presence of artificial hip joint, bilateral; Z96.612 Presence of left artificial shoulder joint; E66.01 Morbid (severe) obesity due to excess calories; D53.9 Nutritional anemia, unspecified; Z68.34 Body mass index [BMI] 34.0-34.9, adult
CPT/HCPCS: 00123; 36415; 80048; 80053; 85027; 85652; 87040; 87641; 96365; 96366; 96367; 96375; 97035; 97140; 99285; 80202; 83735; 85025; 86140; 93971; 99222; 99231; 99239; J0692; J1171; J1644; J1815; J2270; J3370; J3372; J3475; J9999

== ENCOUNTER 2025-03-10 18:42 | Emergency (ER) | payer MEDICARE, BC, SELFPAY ==
[2025-03-10 19:01] VITALS: BP 131/69; PULSE 90; RESP 16; TEMP 36.6; O2SAT 94
--- NOTE | 2025-03-10 20:00 | DI.CT_ITS ---
Exam(s) CT LOWER EXTREMITY RT W EXAM: CT LOWER EXTREMITY RT W CLINICAL HISTORY: lower leg swelling, wound, concern for osteo. TECHNIQUE: Imaging Protocol: Axial computed tomography images with coronal and sagittal reformatted images were created and reviewed. Field of view includes the knee through toes. Exam is limited by large field of view. CONTRAST MATERIAL: Intravenous: Omnipaque 350 Contrast volume:100 ml Contrast route:IV - COMPARISON: CR,XR XR TOE RT SECOND from 02/07/2025 FINDINGS: Bones: Prior amputation of the majority of the 4th toe a small remaining bony fragment as seen on previous plain films.. There is no evidence of fracture or dislocation. No cellulitic or osteomyelitic changes are identified. No lytic or sclerotic lesions are identified. Joints: There degenerative changes at the knee and ankle.. Soft Tissues: Diffuse edema of the lower leg through the foot. No focal gas collection or foreign body. IMPRESSION: Soft tissue swelling. No evidence of osteomyelitis. Prior amputation of the 4th toe. RADIATION DOSE DELIVERED: 383.7mGy.cm Total DLP DATA REPOSITORY: All CT scans at this facility are submitted to the National Radiology Data Registry (NRDR) Dose Index Registry (DIR) with the [employer] (ACR). RADIATION OPTIMIZATION: All CT scans at this facility use at least one of these dose optimization techniques: automated exposure control; mA and/or kV adjustment per patient size (includes targeted exams where dose is matched to clinical indication); or iterative reconstruction.
[2025-03-10 20:40] LABS: Abs Immature Grans 0.16 10^3/uL (0.0-0.06); Absolute Basophil Count 0.09 10^3/uL (0.0-0.2); Absolute Eosinophil Count 0.05 10^3/uL (0.0-0.7); Absolute Lymphocyte Count 0.94 10^3/uL (1.2-3.4); Absolute Monocyte Count 1.04 10^3/uL (0.1-0.8); Absolute Neutrophil Count 13.43 10^3/uL (1.2-6.7); Basophils % 0.6 %; Eosinophils % 0.3 %; HCT 33.9 % (36.0-46.0); HGB 10.5 g/dL (11.2-15.7); MCH 31.9 pg (27.0-33.0); MCV 103 fL (80-95); MPV 10.8 fL (8.0-11.0); Monocytes % 6.6 %; Neutrophils % 85.5 %; Platelet Count 409 10^3/uL (130-400); RBC 3.29 10^6/uL (3.93-5.22); RDW 18.7 % (11.7-14.6); RDW-SD 72.2 fL; WBC 15.71 10^3/uL (4.4-10.8)
[2025-03-10 20:41] LABS: ESR 39 mm/hr (0-30)
[2025-03-10 21:05] LABS: ALT 22 U/L (14-59); AST 12 U/L (15-37); Albumin 3.2 g/dL (3.4-5.0); Alkaline Phosphatase 83 U/L (46-116); Anion Gap 8.8 mmol/L (3-11); BUN 50 mg/dL (7-18); Bilirubin, Total 0.3 mg/dL (0.2-1.0); C-Reactive Protein 5.35 mg/dL (<or=0.5); CO2 25.2 mmol/L (21.0-32.0); CREATININE 1.4 mg/dL (0.55-1.02); Calcium 8.2 mg/dL (8.5-10.1); Chloride 103 mmol/L (98-107); Estimated GFR 39.48 (mL/min/1.73m2); Glucose 247 mg/dL (74-106); Magnesium 1.7 mg/dL (1.8-2.4); Potassium 4.5 mmol/L (3.5-5.1); Sodium 137 mmol/L (136-145); TSH (W/Ref FT4) 4.63 uIU/mL (0.36-3.74); Total Protein 7.3 g/dL (6.4-8.2)
[2025-03-10] MEDS: Omnipaque 350 MG/ML 100 ML BTL IJ (21:28)
[2025-03-10] MEDS: Normal Saline - Diluent 50 ML VIAL IJ (21:29)
--- NOTE | 2025-03-10 22:11 | W.ED.GENAD ---
Discharge Plan Disposition Patient Disposition: Home Condition: Good Discharge Details Clinical Impression: Cellulitis Primary Care Provider: Gui Graham ED Provider: Celeste Colon Home Meds and New Rx's Prescriptions: New doxycycline hyclate 100 mg capsule 100 mg PO BID Qty: 12 0RF No Action carvedilol 12.5 mg tablet 12.5 mg PO BID Rx Instructions: must administer with a meal/food (DME) Dexcom G7 Sensor Device See Rx Instructions .Route Qty: 1 11RF Rx Instructions: As directed hydromorphone [Dilaudid] 2 mg tablet 2 mg PO Q6H MDD 4 tabs PRN (Reason: pain) Qty: 14 0RF spironolactone [Aldactone] 25 mg tablet 25 mg PO DAILY Qty: 90 3RF insulin degludec [Tresiba FlexTouch U-100] 100 unit/mL (3 mL) insulin pen 80 - 100 unit subcut QHS Qty: 15 3RF (DME) Dexcom G7 [employer]ist Misc See Rx Instructions .Route Qty: 1 0RF Rx Instructions: As directed vibegron 75 mg tablet 75 mg PO DAILY Qty: 90 3RF Rx Instructions: per [facility] gyne, for urge incontinence (DME) blood-glucose meter [Accu-Chek Guide Glucose Meter] Misc See Rx Instructions .ROUTE .MEDSUPPLY Qty: 1 0RF Rx Instructions: test as directed (DME) insulin syringe-needle U-100 [BD Insulin Syringe Ultra-Fine] 1 mL 31 gauge x 5/16 syringe See Rx Instructions .ROUTE .MEDSUPPLY Qty: 180 3RF Rx Instructions: 1 injection sq BID folic acid 1 mg tablet 1 mg PO DAILY (DME) Accu-Chek Guide test strips Strip 1 ea Miscellaneous DAILY Qty: 300 3RF Rx Instructions: test 3 x day magnesium 250 mg tablet 500 mg PO QHS atorvastatin 40 mg tablet 40 mg PO DAILY Qty: 90 3RF chlorthalidone 50 mg tablet 100 mg PO DAILY Qty: 180 3RF hydroxyurea 500 mg capsule 500 - 1,000 mg PO DAILY Qty: 115 3RF Rx Instructions: 500 mg/day except take 1000 mg Sat and Saturday aspirin [Adult Aspirin Regimen] 81 mg tablet,delayed release (DR/EC) 81 mg PO DAILY (DME) lancets Misc 1 ea Miscellaneous DAILY Qty: 300 3RF Rx Instructions: test 3 x /day furosemide 20 mg tablet 20 mg PO DAILY Qty: 90 3RF duloxetine 60 mg capsule,delayed release(DR/EC) 60 mg PO DAILY Qty: 90 3RF duloxetine 30 mg capsule,delayed release(DR/EC) 30 mg PO DAILY Qty: 90 3RF Rx Instructions: take with a 60 mg capsule to equal 90 mg/day losartan 100 mg tablet 100 mg PO HS Qty: 90 3RF mupirocin 2 % ointment 1 applic topical TID Qty: 15 0RF ropinirole 8 mg tablet extended release 24 hr 8 mg PO HS Qty: 90 3RF metformin 500 mg tablet 500 mg PO BID Qty: 180 3RF Mounjaro 2.5 mg/0.5 mL pen injector 2.5 mg subcut QWEEK MDD 2.5 28 Days Qty: 2 12RF Rx Instructions: Inject 2.5 mg subcutaneously once weekly as directed. ibuprofen 600 mg tablet 600 mg PO TID PRN (Reason: pain) Qty: 90 0RF insulin glargine [Lantus U-100 Insulin] 100 unit/mL solution 60 unit subcut QPM insulin glargine [Lantus Solostar U-100 Insulin] 100 unit/mL (3 mL) insulin pen 120 unit SUBCUT QHS Patient Comments: ADMINISTER 100 UNITS UNDER THE SKIN EVERY night ferrous sulfate 325 mg (65 mg iron) Tablet 325 mg PO DAILY Qty: 30 0RF Discharge Instructions Additional Instructions: I recommend that you have an ultrasound performed to make sure there is no blood clot in your leg. Please call diagnostic imaging first thing in the morning to schedule this. I have placed the order for you, please bring the order form as provided Please call your primary care provider first thing in the morning to schedule follow-up appointment in the next couple of days. Continue to follow-up with your [facility] teams as scheduled. Elevate your legs above heart level. Practice good wound care as taught by your wound care team. You are being prescribed doxycycline to help treat cellulitis. Take the full course as prescribed. Return to emergency care if you develop new/worsening swelling/redness to your lower leg, spreading of the redness/swelling, fever/chills, general feeling of unwellness, or if you are very worried and need to be rechecked again immediately. Referrals: Gui Graham MD [Primary Care Provider, Medicine] HPI General Date/Time Provider Initiated Documentation: 03/10/25 18:53. HPI Narrative: Emilia is a 74-year-old female with lipodermatosclerosis presenting to the emergency department today for evaluation of swelling to her right lower leg. Has had chronic shallow ulcers present for 1 year on the right johns, fluctuating in severity, recently worsened. Lost one toe due to condition, fears losing another. Swelling in lower leg for 3 days, less pronounced in the morning. Neuropathy and pain in ankle, migrating across toes for 3 days, described as bone pain. Appointment with wound care on Saturday, MRI scheduled for bone infection. No fevers or chills, increased fatigue. Normal appetite, hydration, urination, and bowel movements. Various antibiotics used, including Bactrim, symptoms return weeks after discontinuation. Difficulty walking due to foot pain, inability to bend foot. No chest pain or shortness of breath. Managing sore with cleanser, comfort pads, and mupirocin. Diabetes with higher blood sugar levels since switching from Tresiba to Lantus. Takes 120 units of Lantus at night, monitors blood sugar throughout the day. Blood sugar levels up to 260, previously 140-80 on Tresiba. 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 Related Data Home Medications ?Medication ?Instructions ?Recorded ?Confirmed blood-glucose meter (Accu-Chek #1 ea 03/17/20 03/10/25 Guide Glucose Meter) insulin syringe-needle U-100 1 mL #180 ea 12/06/20 03/10/25 31 gauge x 5/16 (BD Insulin Syringe Ultra-Fine) folic acid 1 mg tablet 1 mg PO DAILY 06/05/22 03/10/25 blood sugar diagnostic (Accu-Chek #300 strips 11/24/22 03/10/25 Guide test strips) blood-glucose,production roustabout,cont #1 ea 01/02/23 03/10/25 (Dexcom G7 Urban [employer] Specialist) magnesium 250 mg tablet 500 mg PO QHS 07/01/23 03/10/25 carvedilol 12.5 mg tablet 12.5 mg PO BID 12/23/23 03/10/25 atorvastatin 40 mg tablet 40 mg PO DAILY #90 tab-caps 01/13/24 03/10/25 chlorthalidone 50 mg tablet 100 mg (2 x 50 mg) PO DAILY #180 01/13/24 03/10/25 tabs vibegron 75 mg tablet 75 mg PO DAILY #90 tabs 03/11/24 03/10/25 hydroxyurea 500 mg capsule 500 - 1,000 mg (1 - 2 x 500 mg) PO 04/08/24 03/10/25 DAILY #115 caps ibuprofen 600 mg tablet 600 mg PO TID PRN pain #90 tabs 06/24/24 03/10/25 aspirin 81 mg tablet,delayed 81 mg PO DAILY 08/06/24 03/10/25 release (Adult Aspirin Regimen) ferrous sulfate 325 mg (65 mg 325 mg PO DAILY #30 tabs 09/07/24 03/10/25 iron) tablet blood-glucose sensor (CS Products G7 #1 ea 10/06/24 03/10/25 Sensor device) lancets #300 ea 11/13/24 03/10/25 duloxetine 30 mg capsule,delayed 30 mg PO DAILY #90 caps 12/09/24 03/10/25 release duloxetine 60 mg capsule,delayed 60 mg PO DAILY #90 caps 12/09/24 03/10/25 release furosemide 20 mg tablet 20 mg PO DAILY #90 tabs 12/09/24 03/10/25 losartan 100 mg tablet 100 mg PO HS #90 tabs 12/09/24 03/10/25 mupirocin 2 % topical ointment 1 applic topical TID #15 grams 12/19/24 03/10/25 ropinirole 8 mg tablet,extended 8 mg PO HS #90 tabs 02/09/25 03/10/25 release 24 hr metformin 500 mg tablet 500 mg PO BID #180 tabs 02/15/25 03/10/25 hydromorphone 2 mg tablet 2 mg PO Q6H PRN pain #14 tabs 02/23/25 03/10/25 (Dilaudid) insulin degludec 100 unit/mL (3 80 - 100 unit (0.8 - 1 mL) subcut 02/23/25 03/10/25 mL) subcutaneous pen (Tresiba QHS #15 mL FlexTouch U-100 insulin) Held on 03/10/25. Instructions: Changed by Provider spironolactone 25 mg tablet 25 mg PO DAILY #90 tabs 02/23/25 03/10/25 (Aldactone) tirzepatide 2.5 mg/0.5 mL 2.5 mg (0.5 mL) subcut QWEEK 4 03/09/25 03/10/25 subcutaneous pen injector weeks #2 mL (Mounjaro) doxycycline hyclate 100 mg capsule 100 mg PO BID #12 caps 03/10/25 insulin glargine 100 unit/mL (3 120 unit subcut QHS 03/10/25 03/10/25 mL) subcutaneous pen (Lantus Solostar U-100 Insulin) insulin glargine 100 unit/mL 60 unit subcut QPM 03/10/25 03/10/25 subcutaneous solution (Lantus U-100 Insulin) Previous Rx's ?Medication ?Instructions ?Recorded blood-glucose meter (Accu-Chek #1 ea 03/17/20 Guide Glucose Meter) insulin syringe-needle U-100 1 mL #180 ea 12/06/20 31 gauge x 5/16 (BD Insulin Syringe Ultra-Fine) blood sugar diagnostic (Accu-Chek #300 strips 11/24/22 Guide test strips) blood-glucose,production roustabout,cont #1 ea 01/02/23 (Dexcom G7 [employer]ening Specialist) atorvastatin 40 mg tablet 40 mg PO DAILY #90 tab-caps 01/13/24 chlorthalidone 50 mg tablet 100 mg (2 x 50 mg) PO DAILY #180 01/13/24 tabs vibegron 75 mg tablet 75 mg PO DAILY #90 tabs 03/11/24 hydroxyurea 500 mg capsule 500 - 1,000 mg (1 - 2 x 500 mg) PO 04/08/24 DAILY #115 caps ibuprofen 600 mg tablet 600 mg PO TID PRN pain #90 tabs 06/24/24 ferrous sulfate 325 mg (65 mg 325 mg PO DAILY #30 tabs 09/07/24 iron) tablet blood-glucose sensor (Dexcom G7 #1 ea 10/06/24 Sensor device) lancets #300 ea 11/13/24 duloxetine 30 mg capsule,delayed 30 mg PO DAILY #90 caps 12/09/24 release duloxetine 60 mg capsule,delayed 60 mg PO DAILY #90 caps 12/09/24 release furosemide 20 mg tablet 20 mg PO DAILY #90 tabs 12/09/24 losartan 100 mg tablet 100 mg PO HS #90 tabs 12/09/24 mupirocin 2 % topical ointment 1 applic topical TID #15 grams 12/19/24 ropinirole 8 mg tablet,extended 8 mg PO HS #90 tabs 02/09/25 release 24 hr metformin 500 mg tablet 500 mg PO BID #180 tabs 02/15/25 hydromorphone 2 mg tablet 2 mg PO Q6H PRN pain #14 tabs 02/23/25 (Dilaudid) insulin degludec 100 unit/mL (3 80 - 100 unit (0.8 - 1 mL) subcut 02/23/25 mL) subcutaneous pen (Tresiba QHS #15 mL FlexTouch U-100 insulin) Held on 03/10/25. Instructions: Changed by Provider spironolactone 25 mg tablet 25 mg PO DAILY #90 tabs 02/23/25 (Aldactone) tirzepatide 2.5 mg/0.5 mL 2.5 mg (0.5 mL) subcut QWEEK 4 03/09/25 subcutaneous pen injector weeks #2 mL (Mounjaro) doxycycline hyclate 100 mg capsule 100 mg PO BID #12 caps 03/10/25 Allergies Allergy/AdvReac Type Severity Reaction Status Date / Time clopidogrel Allergy Skin Rash Verified 03/10/25 18:53 oxybutynin AdvReac Intermediate Reflex Verified 03/10/25 18:53 propoxyphene AdvReac Nausea Verified 03/10/25 18:53 General Stated Complaint: Cellulitis KIMI: 3 Exam Narrative Exam Narrative: General Appearance: Normal. Patient is alert and oriented, no acute distress. Vital signs: Within normal limits. Back, Musculoskeletal: Pitting edema R foot, ankle, and calf. Pain upon palpation in ankle and toes. Extremities: Brisk cap refill Skin: Shallow ulcerations noted to right johns. Skin dry and leathery. Psychiatric: Normal. Course Vital Signs Vital signs: Vital Signs Temperature 36.6 C 03/10/25 19:01 Pulse 90 03/10/25 19:01 Respiratory Rate 16 03/10/25 19:01 Blood Pressure 131/69 03/10/25 19:01 Pulse Oximetry 94 03/10/25 19:01 Temperature 36.6 C 03/10/25 19:01 Temperature Source Oral 03/10/25 19:01 Pulse 90 03/10/25 19:01 Respiratory Rate 16 03/10/25 19:01 Blood Pressure 131/69 03/10/25 19:01 Blood Pressure Position Sitting 03/10/25 19:01 Pulse Oximetry 94 03/10/25 19:01 Oxygen Delivery Method Room Air 03/10/25 19:01 Oxygen Flow Rate 0 03/10/25 19:01 Pain Level 10 03/10/25 19:01 Lab/Test Results Lab/Test Results: Laboratory Tests Range/Units 03/10/25 20:34 WBC (4.4-10.8) 10^3/uL 15.71 H RBC (3.93-5.22) 10^6/uL 3.29 L Hgb (11.2-15.7) g/dL 10.5 L Hct (36.0-46.0) % 33.9 L MCV (80-95) fL 103 H MCH (27.0-33.0) pg 31.9 MCHC (32.0-36.0) % 31.0 L RDW (11.7-14.6) % 18.7 H Plt Count (130-400) 10^3/uL 409 H MPV (8.0-11.0) fL 10.8 Immature Gran % % 1.0 Neutrophils % % 85.5 Lymphocytes % % 6.0 Monocytes % % 6.6 Eosinophils % % 0.3 Basophils % % 0.6 Nucleated RBC % (0.0-0.3) % 0.0 Absolute Neutrophils (1.2-6.7) 10^3/uL 13.43 H Absolute Lymphocytes (1.2-3.4) 10^3/uL 0.94 L Absolute Monocytes (0.1-0.8) 10^3/uL 1.04 H Absolute Eosinophils (0.0-0.7) 10^3/uL 0.05 Absolute Basophils (0.0-0.2) 10^3/uL 0.09 ESR (0-30) mm/hr 39 H Sodium (136-145) mmol/L 137 Potassium (3.5-5.1) mmol/L 4.5 Chloride (98-107) mmol/L 103 Carbon Dioxide (21.0-32.0) mmol/L 25.2 Anion Gap (3-11) mmol/L 8.8 BUN (7-18) mg/dL 50 H Creatinine (0.55-1.02) mg/dL 1.4 H Est GFR (CKD-EPI 2020) (mL/min/1.73m2) 39.48 Glucose (74-106) mg/dL 247 H Calcium (8.5-10.1) mg/dL 8.2 L Magnesium (1.8-2.4) mg/dL 1.7 L Total Bilirubin (0.2-1.0) mg/dL 0.3 AST (15-37) U/L 12 L ALT (14-59) U/L 22 Alkaline Phosphatase (46-116) U/L 83 C-Reactive Protein (<or=0.5) mg/dL 5.35 H Total Protein (6.4-8.2) g/dL 7.3 Albumin (3.4-5.0) g/dL 3.2 L TSH (0.36-3.74) uIU/mL 4.63 H Free T4 (0.76-1.46) ng/dL 0.80 Medical Decision Making Initial Assessment: 74-year-old female with leg ulcer due to lipodermatosclerosis, new swelling in lower leg and foot for 3 days, significant neuropathy, diabetes mellitus, and atrial fibrillation. Differential Diagnosis: Cellulitis, dependent edema, extension of infection deep space/abscess formation/osteomyelitis. Patient presentation not consistent with sepsis, patient does not meet SIRS criteria. I independently interpreted the following tests: CBC notable for leukocytosis, white cell count elevated at 15.71. Patient does have a history of significant leukocytosis on previous labs, ranging in the 13-15 range. Inflammatory markers elevated with CRP 5.35 and sed rate 39. CMP largely unchanged from baseline. Glucose is elevated to 47. CT lower extremity performed, soft tissue edema noted, no fluid collections. I did review previous [facility] ED records, as well as [facility] specialist records. Patient has been treated successfully for cellulitis with doxycycline. Reviewed continued use of doxycycline versus clindamycin with patient, as she has had good success with doxycycline in the past, we will opt to this today and have her follow-up with specialists for management as needed History and presentation most consistent with cellulitis, however cannot exclude DVT as ultrasound is not available this evening. Outpatient ultrasound ordered to be completed in the morning Disposition: Discharge: Home with close follow-up by primary care provider and specialist Follow-Up: Outpatient ultrasound ordered. Recommend close follow-up with PCP for management of T2DM, as well as [facility] team for management of chronic leg condition. Reviewed red flags indicating need for return to emergency care, as well as treatment Patient consented to the use of [facility] Imaging Data Radiologic Study: Radiologist's impression: PROCEDURE INFORMATION: Exam: CT Right Lower Extremity With Contrast Exam date and time: 03/10/2025 9:11 PM Age: 74 years old Clinical indication: Other: Lower leg swelling, wound, concern for osteo TECHNIQUE: Imaging protocol: CT of the right lower extremity with intravenous contrast was performed. Contrast material: OMNIPAQUE 350; Contrast volume: 100 ml; Contrast route: INTRAVENOUS (IV); COMPARISON: CT - Lower Extremities^TBDE_CTA_LE_RUNOFF (Adult) 01/15/2024 10:03 AM FINDINGS: Bones/joints: There has been prior amputation of the phalanges of the right 4th toe. Small bone fragments are seen adjacent to the 4th metatarsal head which may represent retained bone fragments from prior surgery or small sesamoid bones. No periostitis or other findings concerning for osteomyelitis. Moderate tricompartmental joint space narrowing and osteophyte formation throughout the right knee. No acute fracture. Soft tissues: Diffuse subcutaneous soft tissue edema throughout the right lower leg. Diffuse skin thickening in the lower portion of the right leg extending into the right foot and ankle. No loculated soft tissue fluid collections. IMPRESSION: Diffuse soft tissue swelling of the right lower leg without evidence of abscess or osteomyelitis. Chronic osseous changes as noted Quality:SDOH Health Related Social Needs: Health related social needs lonely/isolated education Health related social needs details Amputation left leg PFSH All Active Problems (Updated 03/10/25 @ 23:32 by Celeste Barrientos) Situational depression (Acute) At risk for electrolyte imbalance (Acute) Cellulitis (Acute) Pain and swelling of toe of right foot (Acute) Edema of right lower extremity (Acute) Cervical spondylosis without myelopathy (Acute) Lumbosacral spondylosis without myelopathy (Acute) Chronic pain syndrome (Chronic) Low back pain (Acute) Neck pain (Acute) Anemia (Chronic) Ccjir-ce-emeingk kidney injury (Acute) Anemia (Chronic) Acute sinus infection (Acute) Epistaxis (Acute) Paroxysmal A-fib (Acute) dx in hospital 05/2022 Chest pain (Acute) Chronic pain (Chronic) CAD (coronary artery disease) (Chronic) KEVIN (acute kidney injury) (Acute) Acute confusion (Acute) Severe anemia (Acute) Multiple open wounds of right lower leg (Acute) Chronic pain of right lower extremity (Acute) Bilateral carpal tunnel syndrome (Acute) B/L ECTR: 06/24/2024 Ulnar neuropathy of both upper extremities (Acute) Renal lesion (Acute) Phlegm in throat (Acute) Hand numbness (Acute) Lipodermatosclerosis (Acute) Bladder leak (Acute) Weight gain (Acute) Rash (Acute) Change in bowel habits (Acute) 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) Essential thrombocythemia (Acute) Managed at [facility] hematology with Hydrea Type 2 diabetes mellitus with circulatory disorder, with long-term current use of insulin (Acute) Rotator cuff tear arthropathy of right shoulder (Acute) DEPO MEDROL 09/24/24; 11/09/22 Rotator cuff tear arthropathy of left shoulder (Acute) Fatigue (Acute) Osteoarthritis of right knee (Acute) Steroid Injection: 12/31/24; 12/23/2023 Most recent Synvisc injections: 06/24/2023; 04/10/2022; 09/26/2021 She has been provided with Synvisc injections for many years with Dr. Harvey. Osteoarthritis of right hip (Chronic) Injection under fluoroscopy: 10/01/2019 RLS (restless legs syndrome) (Chronic) Primary osteoarthritis of right knee (Chronic) Chronic pain of left lower extremity (Chronic) await special skills officer recommendations Polyp of colon (Acute 09/15/09) 09/25 COLONOSCOPY: ONE TUBULAR ADENOMA AND FOUR HYPERPLASTIC POLYPS. ALEX (obstructive sleep apnea) (Chronic 03/11/18) not on CPAP due to bedroom size Hyperlipidemia (Acute 01/14/14) History of tobacco use (Acute) Essential hypertension (Acute 08/18/13) Cataracts, both eyes (Acute) 11/11/15 OPTICAL EXPRESSIONS; EARLY CATARACTS B12 deficiency (Acute 04/08/15) Atherosclerosis of [place] coronary artery (Acute) Stent RCA 2006 Hyperlipidemia (Chronic) Hypertension (Chronic) CAD (coronary artery disease) (Chronic) S/P stent 2004 Peripheral vascular disease (Chronic) S/P right SFA antioplasty an sstenting, 2003. Left DVA to [place] popliteal bypass with Pierce-Ruben, 2003. Bypass Left Stent Right 2005 left BKA 08/28 Medical History Venous insufficiency of leg Atrial fibrillation Fracture, femur closed, shaft (05/13/22) (L) Carpal tunnel syndrome (05/16/09) Hypertension History of tobacco abuse Quit 2004 Surgical History Status post amputation of lesser toe of right foot History of left hip replacement History of total replacement of left shoulder joint 02/08/23. -hb S/P peripheral artery angioplasty with stent placement Status post below-knee amputation of left lower extremity (2012) History of total right hip replacement (08/03/20) Hx of tubal ligation History of carpal tunnel release Bilaterally Family History Mother , 74 Neoplasm UTERINE Osteoporosis Uterine cancer Lung cancer Father Lung cancer Sister Neoplasm MELANOMA Breast cancer Sister No problems noted. Sister Skin cancer Brother No problems noted. Son Alcohol abuse Depression Maternal Grandfather Stomach cancer Paternal Grandfather No problems noted. Maternal Grandmother No problems noted. Paternal Grandmother No problems noted. Daughter Depression Social History Smoking/Tobacco Use Status: Former Tobacco Use tobacco type: cigarettes Quit Date: 09/16/04 Tobacco: How many years used: 37 Second Hand Exposure: Yes Smoking risk assessment performed?: Yes Alcohol Intake: current Alcohol Intake frequency: a few times a month Alcohol type: beer and hard liquor Drug use: Never Substance use type: does not use Caregiver/Support person: No Household members: none Housing: house Do you need help understanding health information?: Rarely current occupation: [employer] Pets and animals: Yes Pets and animals: cat(s) Sexually active: No Do you think of yourself as: straight/heterosexual Current gender identity: female What is your relationship status?: How often do you talk on the phone with friends or family?: three or more times per week How often do you get together with friends or relatives?: decline to answer How often do you attend yazidi or buddhist services?: 1-3 times per year Do you belong to any clubs or organized social groups?: no Panel score (0-1 are the most socially isolated patients): 2 What type of physical activity do you participate in: none Carmelina/Episcopal: Religious Special carmelina needs: No Seatbelt use: always Helmet use: Yes Helmet use: always Drive intox 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 mechanic driver: No Do you feel safe at home: Yes Do you feel safe in your relationship?: Yes Would you like helpful sources: No
[2025-03-10] MEDS: HYDROmorphone 2 MG TAB PO (22:40)
--- NOTE | 2025-03-10 23:06 | DI.VRAD_ITS ---
PROCEDURE INFORMATION: Exam: CT Right Lower Extremity With Contrast Exam date and time: 03/10/2025 9:11 PM Age: 74 years old Clinical indication: Other: Lower leg swelling, wound, concern for osteo TECHNIQUE: Imaging protocol: CT of the right lower extremity with intravenous contrast was performed. Contrast material: OMNIPAQUE 350; Contrast volume: 100 ml; Contrast route: INTRAVENOUS (IV); COMPARISON: CT - Lower Extremities^TBDE CTA LE RUNOFF (Adult) 01/15/2024 10:03 AM FINDINGS: Bones/joints: There has been prior amputation of the phalanges of the right 4th toe. Small bone fragments are seen adjacent to the 4th metatarsal head which may represent retained bone fragments from prior surgery or small sesamoid bones. No periostitis or other findings concerning for osteomyelitis. Moderate tricompartmental joint space narrowing and osteophyte formation throughout the right knee. No acute fracture. Soft tissues: Diffuse subcutaneous soft tissue edema throughout the right lower leg. Diffuse skin thickening in the lower portion of the right leg extending into the right foot and ankle. No loculated soft tissue fluid collections. IMPRESSION: Diffuse soft tissue swelling of the right lower leg without evidence of abscess or osteomyelitis. Chronic osseous changes as noted Dictated and Authenticated by: aFbian Kenney MD. Orderin Yessenia Alonso MD
--- NOTE | 2025-03-10 23:50 | NUR.NOTE ---
R leg ultrasound requisition faxed to DI, patient given copy of requision and instructed to call DI anytime after 7am 03/11/25 to make appt.Nursing Note:
[2025-03-10 23:57] VITALS: BP 131/69; PULSE 90; RESP 16; TEMP 36.6; O2SAT 94
== END 2025-03-10 23:58 | disposition home or self-care (01) ==
PROVIDERS: Emergency Provider Nurse Practitioner Family; PCP Family Medicine
DX: L03.115 Cellulitis of right lower limb (principal); R60.0 Localized edema; E11.40 Type 2 diabetes mellitus with diabetic neuropathy, unspecified; M79.671 Pain in right foot; I48.91 Unspecified atrial fibrillation; Z79.4 Long term (current) use of insulin
CPT/HCPCS: 36416; 80053; 82962; 85652; 99285; 73701; 83735; 84439; 84443; 85025; 86140; 99284; J3490

== ENCOUNTER 2025-03-11 08:37 | Outpatient (CLI) | payer MEDICARE, BC, SELFPAY ==
--- NOTE | 2025-03-11 | DI.US_ITS ---
Exam(s) US LOWER EXTREMITY VENOUS RT EXAM: US LOWER EXTREMITY VENOUS RT CLINICAL HISTORY: SWELLING,CONCERN FOR DVT VS CELLULITIS. TECHNIQUE: Lower extremity venous ultrasound performed using grayscale, color- flow, and spectral Doppler analysis. COMPARISON: No exams were available for comparison FINDINGS: The common femoral, femoral and popliteal veins demonstrate normal compressibility, augmentation, and color Doppler. The posterior tibial and peroneal veins are patent to the level of the proximal calf. The mid to distal calf was not imaged due to overlying wounds. No saphenous vein thrombosis or other superficial venous thrombosis is seen. No hematoma or Palmer's cyst is seen. IMPRESSION: Negative lower extremity ultrasound to level of the proximal calf. No evidence of DVT. DATA REPOSITORY:
== END 2025-03-11 08:57 ==
LOC: DI 08:38
PROVIDERS: PCP Family Medicine; Visit Provider Nurse Practitioner Family
DX: R22.41 Localized swelling, mass and lump, right lower limb (principal)
CPT/HCPCS: 99282; 93971; 99283

== ENCOUNTER 2025-03-11 11:22 | Emergency (ER) | payer MEDICARE, BC, SELFPAY ==
--- NOTE | 2025-03-11 11:57 | ED.GENADUL_ITS ---
Discharge Plan Disposition Patient Disposition: Home Condition: Stable Discharge Details Clinical Impression: Cellulitis of right lower extremity Primary Care Provider: Gui Graham ED Provider: Jeronimo Houston Home Meds and New Rx's Prescriptions: Continued carvedilol 12.5 mg tablet 12.5 mg PO BID Rx Instructions: must administer with a meal/food (DME) Dexcom G7 Sensor Device See Rx Instructions .Route Qty: 1 11RF Rx Instructions: As directed hydromorphone [Dilaudid] 2 mg tablet 2 mg PO Q6H MDD 4 tabs PRN (Reason: pain) Qty: 14 0RF spironolactone [Aldactone] 25 mg tablet 25 mg PO DAILY Qty: 90 3RF (DME) Dexcom G7 Associate Director Financial Aid Misc See Rx Instructions .Route Qty: 1 0RF Rx Instructions: As directed vibegron 75 mg tablet 75 mg PO DAILY Qty: 90 3RF Rx Instructions: per [facility] [place], for urge incontinence (DME) blood-glucose meter [Accu-Chek Guide Glucose Meter] Misc See Rx Instructions .ROUTE .MEDSUPPLY Qty: 1 0RF Rx Instructions: test as directed (DME) insulin syringe-needle U-100 [BD Insulin Syringe Ultra-Fine] 1 mL 31 gauge x 5/16 syringe See Rx Instructions .ROUTE .MEDSUPPLY Qty: 180 3RF Rx Instructions: 1 injection sq BID folic acid 1 mg tablet 1 mg PO DAILY (DME) Accu-Chek Guide test strips Strip 1 ea Miscellaneous DAILY Qty: 300 3RF Rx Instructions: test 3 x day magnesium 250 mg tablet 500 mg PO QHS atorvastatin 40 mg tablet 40 mg PO DAILY Qty: 90 3RF chlorthalidone 50 mg tablet 100 mg PO DAILY Qty: 180 3RF hydroxyurea 500 mg capsule 500 - 1,000 mg PO DAILY Qty: 115 3RF Rx Instructions: 500 mg/day except take 1000 mg Sat and Saturday aspirin [Adult Aspirin Regimen] 81 mg tablet,delayed release (DR/EC) 81 mg PO DAILY (DME) lancets Misc 1 ea Miscellaneous DAILY Qty: 300 3RF Rx Instructions: test 3 x /day furosemide 20 mg tablet 20 mg PO DAILY Qty: 90 3RF duloxetine 60 mg capsule,delayed release(DR/EC) 60 mg PO DAILY Qty: 90 3RF duloxetine 30 mg capsule,delayed release(DR/EC) 30 mg PO DAILY Qty: 90 3RF Rx Instructions: take with a 60 mg capsule to equal 90 mg/day losartan 100 mg tablet 100 mg PO HS Qty: 90 3RF mupirocin 2 % ointment 1 applic topical TID Qty: 15 0RF ropinirole 8 mg tablet extended release 24 hr 8 mg PO HS Qty: 90 3RF metformin 500 mg tablet 500 mg PO BID Qty: 180 3RF Mounjaro 2.5 mg/0.5 mL pen injector 2.5 mg subcut QWEEK MDD 2.5 28 Days Qty: 2 12RF Rx Instructions: Inject 2.5 mg subcutaneously once weekly as directed. ibuprofen 600 mg tablet 600 mg PO TID PRN (Reason: pain) Qty: 90 0RF insulin glargine [Lantus U-100 Insulin] 100 unit/mL solution 60 unit subcut QPM insulin glargine [Lantus Solostar U-100 Insulin] 100 unit/mL (3 mL) insulin pen 120 unit SUBCUT QHS Patient Comments: ADMINISTER 100 UNITS UNDER THE SKIN EVERY night doxycycline hyclate 100 mg capsule 100 mg PO BID Qty: 12 0RF ferrous sulfate 325 mg (65 mg iron) Tablet 325 mg PO DAILY Qty: 30 0RF Discharge Instructions Instructions: Cellulitis (Skin Infection), Adult ED Additional Instructions: You were seen in the emergency department for your cellulitis of your right lower extremity, please corn picker your antibiotics and take as directed, your ultrasound shows no deep vein thrombosis of the leg. Please return for any severe increase in swelling of the leg, medial thigh pain, red streaking up the leg, fever or any other emergent concerns. Referrals: Gui Graham MD [Primary Care Provider, Medicine] Discharge Data Discharge Date/Time-TO BE ENTERED AT DEPARTURE: 03/11/25 12:27 HPI General Date/Time Provider Initiated Documentation: 03/11/25 11:29 . HPI Narrative: 74 year-old female presents to ED today by POV/ambulating with a chief complaint of R johns redness/swelling, with chronic superficial ulcers and history of toe amputation in the setting of chronic t2DM with onset insidiously- seen in ED yesterday and started on antibiotics that she has not picked up yet- and had an order for US for DVT ruleout just prior to this visit. Quality described as painful to flex foot, no radiation to fever, medial thigh pain. Severity is described as moderate. Palliating factors include mupirocin and wound care visits. Provoking factors include nothing specific. Patient not anticoagulated. Related Data Home Medications ?Medication ?Instructions ?Recorded ?Confirmed blood-glucose meter (Accu-Chek #1 ea 03/17/20 03/11/25 Guide Glucose Meter) insulin syringe-needle U-100 1 mL #180 ea 12/06/20 31 gauge x 5/16 (BD Insulin Syringe Ultra-Fine) folic acid 1 mg tablet 1 mg PO DAILY 06/05/2203/11 blood sugar diagnostic (Accu-Chek #300 strips 11/24/22 03/11/25 Guide test strips) blood-glucose,still pump operator,cont #1 ea 01/02/23 03/11/25 (Dexcom G7 Associate Director Financial Aid) magnesium 250 mg tablet 500 mg PO QHS 07/01/2303/11 carvedilol 12.5 mg tablet 12.5 mg PO BID 12/23/2302/15 atorvastatin 40 mg tablet 40 mg PO DAILY #90 tab-caps 01/13/24 03/11/25 chlorthalidone 50 mg tablet 100 mg (2 x 50 mg) PO ANISHA Y #180 01/13/24 03/11/25 tabs vibegron 75 mg tablet 75 mg PO DAILY #90 tabs 02/1503/11/25 hydroxyurea 500 mg capsule 500 - 1,000 mg (1 - 2 x 500 mg) PO 04/08/24 03/11/25 DAILY #115 caps ibuprofen 600 mg tablet 600 mg PO TID PRN pain #90 t abs 06/24/24 03/11/25 aspirin 81 mg tablet,delayed 81 mg PO DAILY 08/06/24 0 03/11/25 release (Adult Aspirin Regimen) ferrous sulfate 325 mg (65 mg 325 mg PO DAILY #30 tabs 09/07/24 03/11/25 iron) tablet blood-glucose sensor (Dexcom G7 #1 ea 10/06/24 5 Sensor device) lancets #300 ea 11/13/24 03/11/25 duloxetine 30 mg capsule,delayed 30 mg PO DAILY #90 ca ps 12/09/24 03/11/25 release duloxetine 60 mg capsule,delayed 60 mg PO DAILY #90 ca ps 12/09/24 03/11/25 release furosemide 20 mg tablet 20 mg PO DAILY #90 tabs 03/03/1003/11/25 losartan 100 mg tablet 100 mg PO HS #90 tabs 03/11/25 mupirocin 2 % topical ointment 1 applic topical TID #1 5 grams 12/19/24 03/11/25 ropinirole 8 mg tablet,extended 8 mg PO HS #90 tabs 03/11/25 release 24 hr metformin 500 mg tablet 500 mg PO BID #180 tabs 11/1003/11/25 hydromorphone 2 mg tablet 2 mg PO Q6H PRN pain #14 tab s 02/23/25 03/11/25 (Dilaudid) spironolactone 25 mg tablet 25 mg PO DAILY #90 tabs 03/11/25 (Aldactone) tirzepatide 2.5 mg/0.5 mL 2.5 mg (0.5 mL) subcut QWEEK 4 03/09/25 03/11/25 subcutaneous pen injector weeks #2 mL (Mounjaro) doxycycline hyclate 100 mg capsule 100 mg PO BID #12 c aps 03/10/25 03/11/25 insulin glargine 100 unit/mL (3 120 unit subcut QHS 03/11/25 mL) subcutaneous pen (Lantus Solostar U-100 Insulin) insulin glargine 100 unit/mL 60 unit subcut QPM 03/11/25 subcutaneous solution (Lantus U-100 Insulin) Previous Rx's ?Medication ?Instructions ?Recorded blood-glucose meter (Accu-Chek #1 ea 03/17/20 Guide Glucose Meter) insulin syringe-needle U-100 1 mL #180 ea 12/06/20 31 gauge x 5/16 (BD Insulin Syringe Ultra-Fine) blood sugar diagnostic (Accu-Chek #300 strips 11/24/22 Guide test strips) blood-glucose,still pump operator,cont #1 ea 01/02/23 (Dexcom G7 Associate Director Financial Aid) atorvastatin 40 mg tablet 40 mg PO DAILY #90 tab-caps 01/13/24 chlorthalidone 50 mg tablet 100 mg (2 x 50 mg) PO ANISHA Y #180 01/13/24 tabs vibegron 75 mg tablet 75 mg PO DAILY #90 tabs 02/15 03/09 hydroxyurea 500 mg capsule 500 - 1,000 mg (1 - 2 x 500 mg) PO 04/08/24 DAILY #115 caps ibuprofen 600 mg tablet 600 mg PO TID PRN pain #90 t abs 06/24/24 ferrous sulfate 325 mg (65 mg 325 mg PO DAILY #30 tabs 09/07/24 iron) tablet blood-glucose sensor ([employer] G7 #1 ea 10/06/24 Sensor device) lancets #300 ea 11/13/24 duloxetine 30 mg capsule,delayed 30 mg PO DAILY #90 ca ps 12/09/24 release duloxetine 60 mg capsule,delayed 60 mg PO DAILY #90 ca ps 12/09/24 release furosemide 20 mg tablet 20 mg PO DAILY #90 tabs 11/15 03/10 losartan 100 mg tablet 100 mg PO HS #90 tabs mupirocin 2 % topical ointment 1 applic topical TID #1 5 grams 12/19/24 ropinirole 8 mg tablet,extended 8 mg PO HS #90 tabs release 24 hr metformin 500 mg tablet 500 mg PO BID #180 tabs 11/10 hydromorphone 2 mg tablet 2 mg PO Q6H PRN pain #14 tab s 02/23/25 (Dilaudid) spironolactone 25 mg tablet 25 mg PO DAILY #90 tabs (Aldactone) tirzepatide 2.5 mg/0.5 mL 2.5 mg (0.5 mL) subcut QWEEK 4 03/09/25 subcutaneous pen injector weeks #2 mL (Mounjaro) doxycycline hyclate 100 mg capsule 100 mg PO BID #12 c aps 03/10/25 Allergies Allergy/AdvReac Type Severity Reaction Status Date / Time clopidogrel Allergy Skin Rash Verified 03/11/25 11:25 oxybutynin AdvReac Intermediate Reflex Verified 03/11/25 11:25 propoxyphene AdvReac Nausea Verified 03/11/25 11:25 General Stated Complaint: Recheck KIMI: 5 Review of Systems All systems reviewed & are unremarkable except as noted in HPI and below Exam Narrative Exam Narrative: GENERAL APPEARANCE: Well-nourished, non-toxic, awake and alert, atraumatic, no acute distress. SKIN: Warm, pink, dry, diffuse mild erythema to the right johns to mid calf, Homans negative, no medial thigh tenderness, chronic shallow ulcerations to the lateral lower johns HEAD: Normocephalic, atraumatic, normal hair distribution for gender/age. EYES: Normal conjunctiva, no exudates on lids/lashes. ENT: Nares patent, no circumoral cyanosis, no facial swelling NECK: Supple, trachea midline, painless cervical ROM. LUNGS/CHEST: Non-labored respirations, normal A/P diameter, symmetrical expansion, no chest wall deformity HEART (CV/PV): No peripheral edema, no JVD. ABDOMEN: Soft, non-distended, no guarding. MSK: Normal ROM, moving all extremities without weakness, no cyanosis, spine midline without tenderness, normal curvature. NEURO: Mental Status AAOx4 - alert to person, place, time, events No facial droop, no forehead involvement. Motor: No focal weakness - strength 5/5 in bilateral UEs and LEs, proximal and distal, symmetric. Sensory: sensation intact to light touch globally. Gait NT. PSYCH: euthymic, cooperative, pleasant, appropriate speech Course Vital Signs Vital signs: Comment declined vs and stated is all this necessary i am here for results 03/11/25 11:24 Medical Decision Making This dictation utilizes [id number] dictation software and may contain unedited grammatical errors. 74 year-old female presents to ED today by POV/ambulating with a chief complaint of R johns redness/swelling, with chronic superficial ulcers and history of toe amputation in the setting of chronic t2DM with onset insidiously- seen in ED yesterday and started on antibiotics that she has not picked up yet- and had an order for US for DVT ruleout just prior to this visit. Quality described as painful to flex foot, no radiation to fever, medial thigh pain. Severity is described as moderate. Palliating factors include mupirocin and wound care visits. Provoking factors include nothing specific. Patients' medical history: CVI, atrial fibrillation, hypertension, history of tendon potation of right foot, left leg BKA, T2DM, CAD. Family and social history: noncontributory. Pertinent exam findings / vital signs include R lower leg cellulitis and chronic shallow ulcers, sensation intact distally, Luis's negative, no skin changes to medial thigh. Differential / pathologies of concern include DVT, cellulitis. Diagnostic studies of: -US DVT R LE - negative for DVT. Interventions of: -Recommend continue ABX. ED Course/Assessment/Plan: 74-year-old female returns for routine ultrasound to rule out DVT in the setting of prior visit diagnosing cellulitis, has not started her antibiotics yet, DVT studies negative, I did correctional counselor/case manager her on the need for continuing with wound care visits and picking up her antibiotics, strict return criteria for any severe acute worsening redness and swelling, medial thigh tenderness or other emergent concerns. Findings not consistent with DVT. Disposition of Cellulitis of Right Lower Extremity. Patient verbalized understanding of the plan and return to ED criteria and engaged in shared decision making. Medical Records Medical records reviewed: Yes I reviewed the patient's medical records. Imaging Data Radiologic Study: Attestation: I personally reviewed and interpreted this imaging study as follows: Imaging: Ultrasound Radiologist's impression: EXAM: US LOWER EXTREMITY VENOUS RT CLINICAL HISTORY: SWELLING,CONCERN FOR DVT VS CELLULITIS. TECHNIQUE: Lower extremity venous ultrasound performed using grayscale, color- flow, and spectral Doppler analysis. COMPARISON: No exams were available for comparison FINDINGS: The common femoral, femoral and popliteal veins demonstrate normal compressibility, augmentation, and color Doppler. The posterior tibial and peroneal veins are patent to the level of the proximal calf. The mid to distal calf was not imaged due to overlying wounds. No saphenous vein thrombosis or other superficial venous thrombosis is seen. No hematoma or Palmer's cyst is seen. IMPRESSION: Negative lower extremity ultrasound to level of the proximal calf. No evidence of DVT. Quality:SDOH Health Related Social Needs: Health related social needs lonely/isolated education Health related social needs details Amputation left le g PFSH All Active Problems (Updated 03/11/25 @ 12:00 by HUDSON Villegas) Cellulitis of right lower extremity (Acute) Situational depression (Acute) At risk for electrolyte imbalance (Acute) Cellulitis (Acute) Pain and swelling of toe of right foot (Acute) Edema of right lower extremity (Acute) Cervical spondylosis without myelopathy (Acute) Lumbosacral spondylosis without myelopathy (Acute) Chronic pain syndrome (Chronic) Low back pain (Acute) Neck pain (Acute) Anemia (Chronic) Snrbr-sa-blewrds kidney injury (Acute) Anemia (Chronic) Acute sinus infection (Acute) Epistaxis (Acute) Paroxysmal A-fib (Acute) dx in hospital 05/2022 Chest pain (Acute) Chronic pain (Chronic) CAD (coronary artery disease) (Chronic) KEVIN (acute kidney injury) (Acute) Acute confusion (Acute) Severe anemia (Acute) Multiple open wounds of right lower leg (Acute) Chronic pain of right lower extremity (Acute) Bilateral carpal tunnel syndrome (Acute) B/L ECTR: 06/24/2024 Ulnar neuropathy of both upper extremities (Acute) Renal lesion (Acute) Phlegm in throat (Acute) Hand numbness (Acute) Lipodermatosclerosis (Acute) Bladder leak (Acute) Weight gain (Acute) Rash (Acute) Change in bowel habits (Acute) 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) Essential thrombocythemia (Acute) Managed at [facility] [place] with Hydrea Type 2 diabetes mellitus with circulatory disorder, with long-term current use o f insulin (Acute) Rotator cuff tear arthropathy of right shoulder (Acute) DEPO MEDROL 09/24/24; 11/09/22 Rotator cuff tear arthropathy of left shoulder (Acute) Fatigue (Acute) Osteoarthritis of right knee (Acute) Steroid Injection: 12/31/24; 12/23/2023 Most recent Synvisc injections: 06/24/2023; 04/10/2022; 09/26/2021 She has been provided with Synvisc injections for many years with Dr. Harvey. Osteoarthritis of right hip (Chronic) Injection under fluoroscopy: 10/01/2019 RLS (restless legs syndrome) (Chronic) Primary osteoarthritis of right knee (Chronic) Chronic pain of left lower extremity (Chronic) await psychologist developmental recommendations Polyp of colon (Acute 09/15/09) 09/25 COLONOSCOPY: ONE TUBULAR ADENOMA AND FOUR HYPERPLASTIC POLYPS. ALEX (obstructive sleep apnea) (Chronic 03/11/18) not on CPAP due to bedroom size Hyperlipidemia (Acute 01/14/14) History of tobacco use (Acute) Essential hypertension (Acute 08/18/13) Cataracts, both eyes (Acute) 11/11/15 OPTICAL EXPRESSIONS; EARLY CATARACTS B12 deficiency (Acute 04/08/15) Atherosclerosis of [place] coronary artery (Acute) Stent RCA 2007 Hyperlipidemia (Chronic) Hypertension (Chronic) CAD (coronary artery disease) (Chronic) S/P stent 2004 Peripheral vascular disease (Chronic) S/P right SFA antioplasty an sstenting, 2003. Left DVA to [place] popliteal bypass with Lacon-Ruben, 2003. Bypass Left Stent Right 2005 left BKA 08/28 Medical History Venous insufficiency of leg Atrial fibrillation Fracture, femur closed, shaft (05/13/22) (L) Carpal tunnel syndrome (05/16/09) Hypertension History of tobacco abuse Quit 2004 Surgical History Status post amputation of lesser toe of right foot History of left hip replacement History of total replacement of left shoulder joint 02/08/23. -hb S/P peripheral artery angioplasty with stent placement Status post below-knee amputation of left lower extremity (2012) History of total right hip replacement (08/03/20) Hx of tubal ligation History of carpal tunnel release Bilaterally Family History Mother , 74 Neoplasm UTERINE Osteoporosis Uterine cancer Lung cancer Father Lung cancer Sister Neoplasm MELANOMA Breast cancer Sister No problems noted. Sister Skin cancer Brother No problems noted. Son Alcohol abuse Depression Maternal Grandfather Stomach cancer Paternal Grandfather No problems noted. Maternal Grandmother No problems noted. Paternal Grandmother No problems noted. Daughter Depression Social History Smoking/Tobacco Use Status: Former Tobacco Use tobacco type: cigarettes Quit Date: 09/16/04 Tobacco: How many years used: 37 Second Hand Exposure: Yes Smoking risk assessment performed?: Yes Alcohol Intake: current Alcohol Intake frequency: a few times a month Alcohol type: beer and hard liquor Drug use: Never Substance use type: does not use Caregiver/Support person: No Household members: none Housing: house Do you need help understanding health information?: Rarely current occupation: [employer] Pets and animals: Yes Pets and animals: cat(s) Sexually active: No Do you think of yourself as: straight/heterosexual Current gender identity: female What is your relationship status?: How often do you talk on the phone with friends or family?: three or more times per week How often do you get together with friends or relatives?: decline to answer How often do you attend mandaen or sabianism services?: 1-3 times per year Do you belong to any clubs or organized social groups?: no Panel score (0-1 are the most socially isolated patients): 2 What type of physical activity do you participate in: none Carmelina/Bahai: Baptism Special carmelina needs: No Seatbelt use: always Helmet use: Yes Helmet use: always Drive intox 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 shuttle bus driver: No Do you feel safe at home: Yes Do you feel safe in your relationship?: Yes Would you like helpful sources: No
[2025-03-11 12:23] VITALS: BP 184/77; PULSE 83; RESP 18; O2SAT 98
== END 2025-03-11 12:27 | disposition home or self-care (01) ==
PROVIDERS: Emergency Provider Physician Assistant; PCP Family Medicine
DX: L03.115 Cellulitis of right lower limb (principal)
CPT/HCPCS: 99283; 99282

== ENCOUNTER → 2025-04-05 08:28 | Outpatient (BNVA) | payer MEDICARE, BC, SELFPAY | PROVIDERS: PCP Family Medicine; Referring Provider Student in an Organized Health Care Education/Training Program; Visit Provider Nurse Practitioner Adult Health | DX: G56.03 Carpal tunnel syndrome, bilateral upper limbs (principal); G56.23 Lesion of ulnar nerve, bilateral upper limbs; E11.59 Type 2 diabetes mellitus with other circulatory complications; I10 Essential (primary) hypertension; I48.91 Unspecified atrial fibrillation; Z79.01 Long term (current) use of anticoagulants | CPT/HCPCS: 99215; 95911 ==

== ENCOUNTER 2025-04-12 11:35 | Outpatient (CLI) | payer MEDICARE, BC, SELFPAY ==
[2025-04-12 10:54] LABS: Abs Immature Grans 0.07 10^3/uL (0.0-0.06); HCT 40.9 % (36.0-46.0); HGB 12.3 g/dL (11.2-15.7); Immature Grans % 0.6 %; MCH 30.9 pg (27.0-33.0); MCHC 30.1 % (32.0-36.0); MCV 103 fL (80-95); MPV 10.2 fL (8.0-11.0); Platelet Count 469 10^3/uL (130-400); RBC 3.98 10^6/uL (3.93-5.22); RDW 17.3 % (11.7-14.6); RDW-SD 65.7 fL; WBC 12.07 10^3/uL (4.4-10.8)
[2025-04-12 11:14] LABS: Magnesium 2.2 mg/dL (1.8-2.4)
[2025-04-12 11:15] LABS: Iron 37 ug/dL (50-170); Total Iron Binding Capacity 384 ug/dL (250-450); Transferrin Sat 10 % (15-50)
[2025-04-12 11:22] LABS: ALT 20 U/L (14-59); AST 16 U/L (15-37); Albumin 3.5 g/dL (3.4-5.0); Alkaline Phosphatase 81 U/L (46-116); Anion Gap 7.6 mmol/L (3-11); BUN 32 mg/dL (7-18); Bilirubin, Total 0.3 mg/dL (0.2-1.0); CO2 27.4 mmol/L (21.0-32.0); Chloride 106 mmol/L (98-107); Estimated GFR 43.15 (mL/min/1.73m2); Ferritin 23 ng/mL (8-252); Glucose 81 mg/dL (74-106); Potassium 5.3 mmol/L (3.5-5.1); Sodium 141 mmol/L (136-145); Total Protein 7.8 g/dL (6.4-8.2)
[2025-04-12 11:23] LABS: Calcium 9.2 mg/dL (8.5-10.1)
== END 2025-04-12 11:36 | disposition home or self-care (01) ==
LOC: LBO 11:36
PROVIDERS: Nurse Practitioner Acute Care; PCP Family Medicine; Visit Provider Internal Medicine Hematology & Oncology
DX: D47.1 Chronic myeloproliferative disease (principal); Z91.89 Other specified personal risk factors, not elsewhere classified
CPT/HCPCS: 36415; 80053; 82728; 83540; 83550; 83735; 85025

== ENCOUNTER → 2025-04-21 13:18 | Outpatient (BNVA) | payer MEDICARE, BC, SELFPAY | PROVIDERS: PCP Family Medicine; Referring Provider Student in an Organized Health Care Education/Training Program; Visit Provider Nurse Practitioner Adult Health | DX: G56.01 Carpal tunnel syndrome, right upper limb (principal); E11.59 Type 2 diabetes mellitus with other circulatory complications; I10 Essential (primary) hypertension | CPT/HCPCS: 99214; 95908 ==

== ENCOUNTER → 2025-06-07 10:19 | Outpatient (BNVA) | payer MEDICARE, BC, SELFPAY | PROVIDERS: PCP Family Medicine; Referring Provider Family Medicine; Visit Provider Student in an Organized Health Care Education/Training Program | DX: Z98.890 Other specified postprocedural states (principal); G56.01 Carpal tunnel syndrome, right upper limb; M17.11 Unilateral primary osteoarthritis, right knee | CPT/HCPCS: 99213; 20610; J1010 ==

== ENCOUNTER 2025-06-12 04:54 | Emergency (ER) | payer MEDICARE, BC, SELFPAY ==
[2025-06-12 05:00] VITALS: BP 207/55; PULSE 79; RESP 18
--- NOTE | 2025-06-12 05:08 | W.ED.GENAD ---
Discharge Plan Disposition Patient Disposition: Home Condition: Good Discharge Details Clinical Impression: Epistaxis Primary Care Provider: Gui Graham ED Provider: Eder Zuniga [place] Meds and New Rx's Prescriptions: New cephalexin 500 mg capsule 500 mg PO Q8H Qty: 12 0RF Continued carvedilol 12.5 mg tablet 12.5 mg PO BID Rx Instructions: must administer with a meal/food (DME) Dexcom G7 Sensor Device See Rx Instructions .Route Qty: 1 11RF Rx Instructions: As directed spironolactone [Aldactone] 25 mg tablet 25 mg PO DAILY Qty: 90 3RF (DME) Dexcom G7 Sociology Professor Misc See Rx Instructions .Route Qty: 1 0RF Rx Instructions: As directed vibegron 75 mg tablet 75 mg PO DAILY Qty: 90 3RF Rx Instructions: per [facility], for urge incontinence (DME) blood-glucose meter [Accu-Chek Guide Glucose Meter] Misc See Rx Instructions .ROUTE .MEDSUPPLY Qty: 1 0RF Rx Instructions: test as directed (DME) insulin syringe-needle U-100 [BD Insulin Syringe Ultra-Fine] 1 mL 31 gauge x 5/16 syringe See Rx Instructions .ROUTE .MEDSUPPLY Qty: 180 3RF Rx Instructions: 1 injection sq BID folic acid 1 mg tablet 1 mg PO DAILY (DME) Accu-Chek Guide test strips Strip 1 ea Miscellaneous DAILY Qty: 300 3RF Rx Instructions: test 3 x day atorvastatin 40 mg tablet 40 mg PO DAILY Qty: 90 3RF chlorthalidone 50 mg tablet 100 mg PO DAILY Qty: 180 3RF aspirin [Adult Aspirin Regimen] 81 mg tablet,delayed release (DR/EC) 81 mg PO DAILY (DME) lancets Misc 1 ea Miscellaneous DAILY Qty: 300 3RF Rx Instructions: test 3 x /day furosemide 20 mg tablet 20 mg PO DAILY Qty: 90 3RF duloxetine 60 mg capsule,delayed release(DR/EC) 60 mg PO DAILY Qty: 90 3RF duloxetine 30 mg capsule,delayed release(DR/EC) 30 mg PO DAILY Qty: 90 3RF Rx Instructions: take with a 60 mg capsule to equal 90 mg/day losartan 100 mg tablet 100 mg PO HS Qty: 90 3RF mupirocin 2 % ointment 1 applic topical TID Qty: 15 0RF ropinirole 8 mg tablet extended release 24 hr 8 mg PO HS Qty: 90 3RF metformin 500 mg tablet 500 mg PO BID Qty: 180 3RF Mounjaro 2.5 mg/0.5 mL pen injector 2.5 mg subcut QWEEK MDD 2.5 28 Days Qty: 2 12RF Rx Instructions: Inject 2.5 mg subcutaneously once weekly as directed. hydromorphone [Dilaudid] 2 mg tablet 2 mg PO Q6H MDD 4 tabs PRN (Reason: pain) Qty: 14 0RF hydroxyurea 500 mg capsule 500 - 1,000 mg PO DAILY Qty: 115 3RF Rx Instructions: 500 mg/day except take 1000 mg Sat and Saturday insulin degludec [Tresiba FlexTouch U-100] 100 unit/mL (3 mL) insulin pen 100 unit subcut QHS Qty: 90 3RF ibuprofen 600 mg tablet 600 mg PO TID PRN (Reason: pain) Qty: 90 0RF ferrous sulfate 325 mg (65 mg iron) Tablet 325 mg PO DAILY Qty: 30 0RF Discharge Instructions Instructions: Nosebleeds ED Additional Instructions: You were seen in the ED for a nosebleed. Your nosebleed required packing to bring it under control. This packing should remain in for 48 hours. Since you have appointments at [facility] on Saturday and Saturday please return to ED Saturday or Saturday before driving to [facility] for a recheck and to have the packing removed. You will ultimately need to follow-up with ENT, Dr. Moreno, and can schedule that when convenient. You should take the prescribed cephalexin 3 times a day while the packing is in place. Return to ED for uncontrolled bleeding, fever, worsening headache or sinus pain, other concerns. Referrals: Miguel Moreno MD [ [facility] STAFF PHYSICIAN, ENT Surgical] Discharge Data Discharge Date/Time-TO BE ENTERED AT DEPARTURE: 06/12/25 07:09 HPI General Mode of arrival: ambulatory. Date/Time Provider Initiated Documentation: 06/12/25 05:08. Limitations to Documentation: no limitations. Information obtained by: patient and RN notes reviewed. HPI Narrative: Patient presents to ED with epistaxis. Patient blew her nose around 10:30 PM and has had bleeding ever since. She has not been able to get her to stop at home. She is on aspirin but no other antiplatelet or anticoagulation medications. She has had nosebleeds in the past and has had to have packing placed. Denies any fever or URI type symptoms. Denies any direct trauma. Related Data Home Medications ?Medication ?Instructions ?Recorded ?Confirmed blood-glucose meter (Accu-Chek #1 ea 03/17/20 06/12/25 Guide Glucose Meter) insulin syringe-needle U-100 1 mL #180 ea 12/06/20 06/12/25 31 gauge x 5/16 (BD Insulin Syringe Ultra-Fine) folic acid 1 mg tablet 1 mg PO DAILY 06/05/22 06/12/25 blood sugar diagnostic (Accu-Chek #300 strips 11/24/22 06/12/25 Guide test strips) blood-glucose,biology teacher,cont #1 ea 01/02/23 06/12/25 (Dexcom G7 Sociology Professor) carvedilol 12.5 mg tablet 12.5 mg PO BID 12/23/23 06/12/25 atorvastatin 40 mg tablet 40 mg PO DAILY #90 tab-caps 01/13/24 06/12/25 chlorthalidone 50 mg tablet 100 mg (2 x 50 mg) PO DAILY #180 01/13/24 06/12/25 tabs vibegron 75 mg tablet 75 mg PO DAILY #90 tabs 03/11/24 06/12/25 ibuprofen 600 mg tablet 600 mg PO TID PRN pain #90 tabs 06/24/24 06/12/25 aspirin 81 mg tablet,delayed 81 mg PO DAILY 08/06/24 06/12/25 release (Adult Aspirin Regimen) ferrous sulfate 325 mg (65 mg 325 mg PO DAILY #30 tabs 09/07/24 06/12/25 iron) tablet blood-glucose sensor (Dexcom G7 #1 ea 10/06/24 06/12/25 Sensor device) lancets #300 ea 11/13/24 06/12/25 duloxetine 30 mg capsule,delayed 30 mg PO DAILY #90 caps 12/09/24 06/12/25 release duloxetine 60 mg capsule,delayed 60 mg PO DAILY #90 caps 12/09/24 06/12/25 release furosemide 20 mg tablet 20 mg PO DAILY #90 tabs 12/09/24 06/12/25 losartan 100 mg tablet 100 mg PO HS #90 tabs 12/09/24 06/12/25 mupirocin 2 % topical ointment 1 applic topical TID #15 grams 12/19/24 06/12/25 ropinirole 8 mg tablet,extended 8 mg PO HS #90 tabs 02/09/25 06/12/25 release 24 hr metformin 500 mg tablet 500 mg PO BID #180 tabs 02/15/25 06/12/25 spironolactone 25 mg tablet 25 mg PO DAILY #90 tabs 02/23/25 06/12/25 (Aldactone) tirzepatide 2.5 mg/0.5 mL 2.5 mg (0.5 mL) subcut QWEEK 4 03/09/25 06/12/25 subcutaneous pen injector weeks #2 mL (Mounjaro) hydromorphone 2 mg tablet 2 mg PO Q6H PRN pain #14 tabs 04/28/25 06/12/25 (Dilaudid) hydroxyurea 500 mg capsule 500 - 1,000 mg (1 - 2 x 500 mg) PO 05/28/25 06/12/25 DAILY #115 caps insulin degludec 100 unit/mL (3 100 unit subcut QHS #90 mL 05/29/25 06/12/25 mL) subcutaneous pen (Tresiba FlexTouch U-100 insulin) cephalexin 500 mg capsule 500 mg PO Q8H #12 caps 06/12/25 Previous Rx's ?Medication ?Instructions ?Recorded blood-glucose meter (Accu-Chek #1 ea 03/17/20 Guide Glucose Meter) insulin syringe-needle U-100 1 mL #180 ea 12/06/20 31 gauge x 5/16 (BD Insulin Syringe Ultra-Fine) blood sugar diagnostic (Accu-Chek #300 strips 11/24/22 Guide test strips) blood-glucose,biology teacher,cont #1 ea 01/02/23 (Dexcom G7 Sociology Professor) atorvastatin 40 mg tablet 40 mg PO DAILY #90 tab-caps 01/13/24 chlorthalidone 50 mg tablet 100 mg (2 x 50 mg) PO DAILY #180 01/13/24 tabs vibegron 75 mg tablet 75 mg PO DAILY #90 tabs 03/11/24 ibuprofen 600 mg tablet 600 mg PO TID PRN pain #90 tabs 06/24/24 ferrous sulfate 325 mg (65 mg 325 mg PO DAILY #30 tabs 09/07/24 iron) tablet blood-glucose sensor (TM3 Softwarecom G7 #1 ea 10/06/24 Sensor device) lancets #300 ea 11/13/24 duloxetine 30 mg capsule,delayed 30 mg PO DAILY #90 caps 12/09/24 release duloxetine 60 mg capsule,delayed 60 mg PO DAILY #90 caps 12/09/24 release furosemide 20 mg tablet 20 mg PO DAILY #90 tabs 12/09/24 losartan 100 mg tablet 100 mg PO HS #90 tabs 12/09/24 mupirocin 2 % topical ointment 1 applic topical TID #15 grams 12/19/24 ropinirole 8 mg tablet,extended 8 mg PO HS #90 tabs 02/09/25 release 24 hr metformin 500 mg tablet 500 mg PO BID #180 tabs 02/15/25 spironolactone 25 mg tablet 25 mg PO DAILY #90 tabs 02/23/25 (Aldactone) tirzepatide 2.5 mg/0.5 mL 2.5 mg (0.5 mL) subcut QWEEK 4 03/09/25 subcutaneous pen injector weeks #2 mL (Mounjaro) hydromorphone 2 mg tablet 2 mg PO Q6H PRN pain #14 tabs 04/28/25 (Dilaudid) hydroxyurea 500 mg capsule 500 - 1,000 mg (1 - 2 x 500 mg) PO 05/28/25 DAILY #115 caps insulin degludec 100 unit/mL (3 100 unit subcut QHS #90 mL 05/29/25 mL) subcutaneous pen (Tresiba FlexTouch U-100 insulin) cephalexin 500 mg capsule 500 mg PO Q8H #12 caps 06/12/25 Allergies Allergy/AdvReac Type Severity Reaction Status Date / Time clopidogrel Allergy Skin Rash Verified 06/07/25 10:31 oxybutynin AdvReac Intermediate Reflex Verified 06/07/25 10:31 propoxyphene AdvReac Nausea Verified 06/07/25 10:31 General Stated Complaint: Epistaxis KIMI: 2 Exam Narrative Exam Narrative: Const: WDWN elderly female in NAD. VS per triage. HEENT: NC/AT. Normal facial exam. Bleeding from right nostril. Posterior OP with slight trickle of blood. Neck: Supple. Trachea midline. Lungs: Normal respiratory effort. Neuro: A+O x 3. Normal speech, mentation, gait. Cranial nerves II - XII grossly intact. No gross motor or sensory deficit. Course Vital Signs Vital signs: Vital Signs Pulse 79 06/12/25 05:00 Respiratory Rate 18 06/12/25 05:00 Blood Pressure 207/55 H 06/12/25 05:00 Temperature Source Tympanic 06/12/25 05:00 Pulse 79 06/12/25 05:00 Respiratory Rate 18 06/12/25 05:00 Blood Pressure 207/55 H 06/12/25 05:00 Blood Pressure Position Sitting 06/12/25 05:00 Oxygen Delivery Method Room Air 06/12/25 05:00 Oxygen Flow Rate 0 06/12/25 05:00 Procedure Epistaxis Control Date of Procedure: 06/12/25 Time of Procedure: 05:30 Provider that performed the procedure: Eder Zuniga Patient Consented: Verbally Nostril: right Nose prepped with: oxymetazoline Direct Inspection: unable to visualize Clots Removed by: manually Cautery Used: none Device Inserted: Rapid rhino 7.5cm single lumen Medical Decision Making Patient presenting to ED with right epistaxis. Afrin soaked cotton pledget placed in the right nostril. Subsequently 3 squirts of Afrin also placed in the right nostril. No anterior source identified. Bleeding continued. Discussed the need for packing which she has had previously. A 7.5 cm rapid Rhino was placed without difficulty. Balloon was blown up and patient was observed. She reported feeling some blood in the back of her throat still. Repeat visualization shows no clot and no real trickle that had been seen previously. Seems to be under decent control at this time. Unfortunately patient has appointments with [facility] on Saturday and Saturday. Should not leave the packing in for more than 2 to 3 days. I have therefore instructed her to return to ED either Saturday or Saturday prior to heading down to [facility] to have the packing removed. You should be placed on cephalexin 3 times a day while packing is in place. Should have a follow-up appointment with ENT in the near future and is given ENT clinic number to schedule such appointment. Return precautions discussed. Quality:SDOH Health Related Social Needs: Health related social needs risk of homeless house/econ circumstance Health related social needs details left [facility] All Active Problems (Updated 06/12/25 @ 06:47 by Eder Zuniga MD) Anxiety (Chronic) Pain disorder associated with psychological and physical factors (Acute) Right carpal tunnel syndrome (Acute) s/p revision ECTR DOS: 06/24/24 Situational depression (Acute) At risk for electrolyte imbalance (Acute) Cellulitis (Acute) Pain and swelling of toe of right foot (Acute) Edema of right lower extremity (Acute) Cervical spondylosis without myelopathy (Acute) Lumbosacral spondylosis without myelopathy (Acute) Chronic pain syndrome (Chronic) Low back pain (Acute) Neck pain (Acute) Anemia (Chronic) Ekcef-oy-gsqhvlf kidney injury (Acute) Anemia (Chronic) Acute sinus infection (Acute) Epistaxis (Acute) Paroxysmal A-fib (Acute) dx in hospital 05/2022 Chest pain (Acute) Chronic pain (Chronic) CAD (coronary artery disease) (Chronic) KEVIN (acute kidney injury) (Acute) Acute confusion (Acute) Severe anemia (Acute) Multiple open wounds of right lower leg (Acute) Chronic pain of right lower extremity (Acute) Bilateral carpal tunnel syndrome (Acute) B/L ECTR: 06/24/2024 Ulnar neuropathy of both upper extremities (Acute) Renal lesion (Acute) Phlegm in throat (Acute) Hand numbness (Acute) Lipodermatosclerosis (Acute) Bladder leak (Acute) Weight gain (Acute) Rash (Acute) Change in bowel habits (Acute) 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 Harvey. Osteoarthritis of right hip (Chronic) Injection under fluoroscopy: 10/01/2019 RLS (restless legs syndrome) (Chronic) Primary osteoarthritis of right knee (Chronic) Chronic pain of left lower extremity (Chronic) await wire mesh gate assembler recommendations Polyp of colon (Acute 09/15/09) 09/25 COLONOSCOPY: ONE TUBULAR ADENOMA AND FOUR HYPERPLASTIC POLYPS. ALEX (obstructive sleep apnea) (Chronic 03/11/18) not on CPAP due to bedroom size Hyperlipidemia (Acute 01/14/14) History of tobacco use (Acute) Essential hypertension (Acute 08/18/13) Cataracts, both eyes (Acute) 11/11/15 OPTICAL EXPRESSIONS; EARLY CATARACTS B12 deficiency (Acute 04/08/15) Atherosclerosis of [place] coronary artery (Acute) Stent RCA 2006 Hyperlipidemia (Chronic) Hypertension (Chronic) CAD (coronary artery disease) (Chronic) S/P stent 2004 Peripheral vascular disease (Chronic) S/P right SFA antioplasty an sstenting, 2003. Left DVA to [place] popliteal bypass with [place], 2003. Bypass Left Stent Right 2005 left BKA 08/28 Medical History Venous insufficiency of leg Atrial fibrillation Fracture, femur closed, shaft (05/13/22) (L) Carpal tunnel syndrome (05/16/09) Hypertension History of tobacco abuse Quit 2004 Surgical History Status post amputation of lesser toe of right foot History of left hip replacement History of total replacement of left shoulder joint 02/08/23. -hb S/P peripheral artery angioplasty with stent placement Status post below-knee amputation of left lower extremity (2012) History of total right hip replacement (08/03/20) Hx of tubal ligation History of carpal tunnel release Bilaterally Family History Mother , 74 Neoplasm UTERINE Osteoporosis Uterine cancer Lung cancer Father Lung cancer Sister Neoplasm MELANOMA Breast cancer Sister No problems noted. Sister Skin cancer Brother No problems noted. Son Alcohol abuse Depression Maternal Grandfather Stomach cancer Paternal Grandfather No problems noted. Maternal Grandmother No problems noted. Paternal Grandmother No problems noted. Daughter Depression Social History Smoking/Tobacco Use Status: Former Tobacco Use tobacco type: cigarettes Quit Date: 09/16/04 Tobacco: How many years used: 37 Second Hand Exposure: Yes Smoking risk assessment performed?: Yes Alcohol Intake: current Alcohol Intake frequency: a few times a month Alcohol type: beer and hard liquor Drug use: Never Substance use type: does not use Caregiver/Support person: No Household members: none Housing: house Do you need help understanding health information?: Rarely current occupation: [employer] Pets and animals: Yes Pets and animals: cat(s) Sexually active: No Do you think of yourself as: straight/heterosexual Current gender identity: female What is your relationship status?: How often do you talk on the phone with friends or family?: three or more times per week How often do you get together with friends or relatives?: decline to answer How often do you attend sabianist or catholic services?: 1-3 times per year Do you belong to any clubs or organized social groups?: no Panel score (0-1 are the most socially isolated patients): 2 What type of physical activity do you participate in: none Carmelina/Synagogue: Mandae[employer] Special carmelina needs: No Seatbelt use: always Helmet use: Yes Helmet use: always Drive intox 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 drivers license examiner: No Do you feel safe at home: Yes Do you feel safe in your relationship?: Yes Would you like helpful sources: No
[2025-06-12] MEDS: Oxymetazolone 0.05% SPRAY 15 ML BTL NS (05:21)
[2025-06-12 05:52] VITALS: BP 195/94; PULSE 80; RESP 16; O2SAT 93
[2025-06-12] MEDS: Cephalexin 500 MG CAP PO (06:24)
[2025-06-12 07:06] VITALS: BP 192/94; RESP 78; O2SAT 96
== END 2025-06-12 07:09 | disposition home or self-care (01) ==
PROVIDERS: Emergency Provider Emergency Medicine; PCP Family Medicine
DX: R04.0 Epistaxis (principal)
CPT/HCPCS: 99283 ×2; 30905

== ENCOUNTER 2025-06-14 10:08 | Emergency (ER) | payer MEDICARE, BC, SELFPAY ==
[2025-06-14 10:11] VITALS: BP 165/73; PULSE 72; RESP 16; TEMP 36.7; O2SAT 98
--- NOTE | 2025-06-14 10:41 | W.ED.GENAD ---
Discharge Plan Disposition Patient Disposition: Home Condition: Stable Discharge Details Clinical Impression: Encounter for removal of nasal packing, Acute anterior epistaxis Primary Care Provider: Gui Graham ED Provider: Roly Flanagan Home Meds and New Rx's Prescriptions: Continued carvedilol 12.5 mg tablet 12.5 mg PO BID Rx Instructions: must administer with a meal/food (DME) Dexcom G7 Sensor Device See Rx Instructions .Route Qty: 1 11RF Rx Instructions: As directed spironolactone [Aldactone] 25 mg tablet 25 mg PO DAILY Qty: 90 3RF (DME) Dexcom G7 Backroom Associate Misc See Rx Instructions .Route Qty: 1 0RF Rx Instructions: As directed vibegron 75 mg tablet 75 mg PO DAILY Qty: 90 3RF Rx Instructions: per [facility] [place], for urge incontinence (DME) blood-glucose meter [Accu-Chek Guide Glucose Meter] Misc See Rx Instructions .ROUTE .MEDSUPPLY Qty: 1 0RF Rx Instructions: test as directed (DME) insulin syringe-needle U-100 [BD Insulin Syringe Ultra-Fine] 1 mL 31 gauge x 5/16 syringe See Rx Instructions .ROUTE .MEDSUPPLY Qty: 180 3RF Rx Instructions: 1 injection sq BID folic acid 1 mg tablet 1 mg PO DAILY (DME) Accu-Chek Guide test strips Strip 1 ea Miscellaneous DAILY Qty: 300 3RF Rx Instructions: test 3 x day atorvastatin 40 mg tablet 40 mg PO DAILY Qty: 90 3RF chlorthalidone 50 mg tablet 100 mg PO DAILY Qty: 180 3RF aspirin [Adult Aspirin Regimen] 81 mg tablet,delayed release (DR/EC) 81 mg PO DAILY (DME) lancets Misc 1 ea Miscellaneous DAILY Qty: 300 3RF Rx Instructions: test 3 x /day furosemide 20 mg tablet 20 mg PO DAILY Qty: 90 3RF duloxetine 60 mg capsule,delayed release(DR/EC) 60 mg PO DAILY Qty: 90 3RF duloxetine 30 mg capsule,delayed release(DR/EC) 30 mg PO DAILY Qty: 90 3RF Rx Instructions: take with a 60 mg capsule to equal 90 mg/day losartan 100 mg tablet 100 mg PO HS Qty: 90 3RF mupirocin 2 % ointment 1 applic topical TID Qty: 15 0RF ropinirole 8 mg tablet extended release 24 hr 8 mg PO HS Qty: 90 3RF metformin 500 mg tablet 500 mg PO BID Qty: 180 3RF Mounjaro 2.5 mg/0.5 mL pen injector 2.5 mg subcut QWEEK MDD 2.5 28 Days Qty: 2 12RF Rx Instructions: Inject 2.5 mg subcutaneously once weekly as directed. hydromorphone [Dilaudid] 2 mg tablet 2 mg PO Q6H MDD 4 tabs PRN (Reason: pain) Qty: 14 0RF hydroxyurea 500 mg capsule 500 - 1,000 mg PO DAILY Qty: 115 3RF Rx Instructions: 500 mg/day except take 1000 mg Sat and Saturday insulin degludec [Tresiba FlexTouch U-100] 100 unit/mL (3 mL) insulin pen 100 unit subcut QHS Qty: 90 3RF ibuprofen 600 mg tablet 600 mg PO TID PRN (Reason: pain) Qty: 90 0RF cephalexin 500 mg capsule 500 mg PO Q8H Qty: 12 0RF ferrous sulfate 325 mg (65 mg iron) Tablet 325 mg PO DAILY Qty: 30 0RF Discharge Instructions Instructions: Nosebleeds ED Additional Instructions: Nasal packing was removed today. A small anterior area in your right nare was oozing blood after packing removal. Chemical cauterization was performed successfully. Please follow-up with research neuropsychologist. Please follow-up with your primary care physician. Your blood pressure was noted to be elevated today 165/73. Please be sure to discuss this with your doctor. Should blood pressure remain elevated, additional outpatient diagnostic testing and treatment including medication adjustment may be necessary. Return to the emergency department immediately for any worsening or new concerning symptoms. Referrals: Miguel Moreno MD [ [facility] STAFF PHYSICIAN, ENT Surgical] Gui Graham MD [Primary Care Provider, Medicine] HPI General Mode of arrival: ambulatory. Date/Time Provider Initiated Documentation: 06/14/25 10:24. Limitations to Documentation: no limitations. Information obtained by: patient. HPI Narrative: HISTORY OF PRESENT ILLNESS The patient is a 74-year-old female who presents with a request for nasal packing to be removed. She was seen here on 06/12/2025 for epistaxis and had a 7.5 cm Rapid Rhino rocket applied to the right nare to control bleeding. She was instructed to return Saturday morning for attempted removal. Related Data Home Medications ?Medication ?Instructions ?Recorded ?Confirmed blood-glucose meter (Accu-Chek #1 ea 03/17/20 06/14/25 Guide Glucose Meter) insulin syringe-needle U-100 1 mL #180 ea 12/06/20 06/14/25 31 gauge x 5/16 (BD Insulin Syringe Ultra-Fine) folic acid 1 mg tablet 1 mg PO DAILY 06/05/22 06/14/25 blood sugar diagnostic (Accu-Chek #300 strips 11/24/22 06/14/25 Guide test strips) blood-glucose,trench digger helper,cont #1 ea 01/02/23 06/14/25 (Dexcom G7 Backroom Associate) carvedilol 12.5 mg tablet 12.5 mg PO BID 12/23/23 06/14/25 atorvastatin 40 mg tablet 40 mg PO DAILY #90 tab-caps 01/13/24 06/14/25 chlorthalidone 50 mg tablet 100 mg (2 x 50 mg) PO DAILY #180 01/13/24 06/14/25 tabs vibegron 75 mg tablet 75 mg PO DAILY #90 tabs 03/11/24 06/14/25 ibuprofen 600 mg tablet 600 mg PO TID PRN pain #90 tabs 06/24/24 06/14/25 aspirin 81 mg tablet,delayed 81 mg PO DAILY 08/06/24 06/14/25 release (Adult Aspirin Regimen) ferrous sulfate 325 mg (65 mg 325 mg PO DAILY #30 tabs 09/07/24 06/14/25 iron) tablet blood-glucose sensor (Dexcom G7 #1 ea 10/06/24 06/14/25 Sensor device) lancets #300 ea 11/13/24 06/14/25 duloxetine 30 mg capsule,delayed 30 mg PO DAILY #90 caps 12/09/24 06/14/25 release duloxetine 60 mg capsule,delayed 60 mg PO DAILY #90 caps 12/09/24 06/14/25 release furosemide 20 mg tablet 20 mg PO DAILY #90 tabs 12/09/24 06/14/25 losartan 100 mg tablet 100 mg PO HS #90 tabs 12/09/24 06/14/25 mupirocin 2 % topical ointment 1 applic topical TID #15 grams 12/19/24 06/14/25 ropinirole 8 mg tablet,extended 8 mg PO HS #90 tabs 02/09/25 06/14/25 release 24 hr metformin 500 mg tablet 500 mg PO BID #180 tabs 02/15/25 06/14/25 spironolactone 25 mg tablet 25 mg PO DAILY #90 tabs 02/23/25 06/14/25 (Aldactone) tirzepatide 2.5 mg/0.5 mL 2.5 mg (0.5 mL) subcut QWEEK 4 03/09/25 06/14/25 subcutaneous pen injector weeks #2 mL (Mounjaro) hydromorphone 2 mg tablet 2 mg PO Q6H PRN pain #14 tabs 04/28/25 06/14/25 (Dilaudid) hydroxyurea 500 mg capsule 500 - 1,000 mg (1 - 2 x 500 mg) PO 05/28/25 06/14/25 DAILY #115 caps insulin degludec 100 unit/mL (3 100 unit subcut QHS #90 mL 05/29/25 06/14/25 mL) subcutaneous pen (Tresiba FlexTouch U-100 insulin) cephalexin 500 mg capsule 500 mg PO Q8H #12 caps 06/12/25 06/14/25 Previous Rx's ?Medication ?Instructions ?Recorded blood-glucose meter (Accu-Chek #1 ea 03/17/20 Guide Glucose Meter) insulin syringe-needle U-100 1 mL #180 ea 12/06/20 31 gauge x 5/16 (BD Insulin Syringe Ultra-Fine) blood sugar diagnostic (Accu-Chek #300 strips 11/24/22 Guide test strips) blood-glucose,trench digger helper,cont #1 ea 01/02/23 (Dexcom G7 Backroom Associate) atorvastatin 40 mg tablet 40 mg PO DAILY #90 tab-caps 01/13/24 chlorthalidone 50 mg tablet 100 mg (2 x 50 mg) PO DAILY #180 01/13/24 tabs vibegron 75 mg tablet 75 mg PO DAILY #90 tabs 03/11/24 ibuprofen 600 mg tablet 600 mg PO TID PRN pain #90 tabs 06/24/24 ferrous sulfate 325 mg (65 mg 325 mg PO DAILY #30 tabs 09/07/24 iron) tablet blood-glucose sensor (Dexcom G7 #1 ea 10/06/24 Sensor device) lancets #300 ea 11/13/24 duloxetine 30 mg capsule,delayed 30 mg PO DAILY #90 caps 12/09/24 release duloxetine 60 mg capsule,delayed 60 mg PO DAILY #90 caps 12/09/24 release furosemide 20 mg tablet 20 mg PO DAILY #90 tabs 12/09/24 losartan 100 mg tablet 100 mg PO HS #90 tabs 12/09/24 mupirocin 2 % topical ointment 1 applic topical TID #15 grams 12/19/24 ropinirole 8 mg tablet,extended 8 mg PO HS #90 tabs 02/09/25 release 24 hr metformin 500 mg tablet 500 mg PO BID #180 tabs 02/15/25 spironolactone 25 mg tablet 25 mg PO DAILY #90 tabs 02/23/25 (Aldactone) tirzepatide 2.5 mg/0.5 mL 2.5 mg (0.5 mL) subcut QWEEK 4 03/09/25 subcutaneous pen injector weeks #2 mL (Mounjaro) hydromorphone 2 mg tablet 2 mg PO Q6H PRN pain #14 tabs 04/28/25 (Dilaudid) hydroxyurea 500 mg capsule 500 - 1,000 mg (1 - 2 x 500 mg) PO 05/28/25 DAILY #115 caps insulin degludec 100 unit/mL (3 100 unit subcut QHS #90 mL 05/29/25 mL) subcutaneous pen (Tresiba FlexTouch U-100 insulin) cephalexin 500 mg capsule 500 mg PO Q8H #12 caps 06/12/25 Allergies Allergy/AdvReac Type Severity Reaction Status Date / Time clopidogrel Allergy Skin Rash Verified 06/14/25 10:18 oxybutynin AdvReac Intermediate Reflex Verified 06/14/25 10:18 propoxyphene AdvReac Nausea Verified 06/14/25 10:18 General Stated Complaint: Recheck KIMI: 4 Review of Systems ENT Ears, Nose, Mouth, and Throat: Reports as per HPI Exam [facility] Face and sinus: other (rt nasal packing intact, oozing blood tinged mucous ) Course Vital Signs Vital signs: Vital Signs Temperature 36.7 C 06/14/25 10:11 Pulse 72 06/14/25 10:11 Respiratory Rate 16 06/14/25 10:11 Blood Pressure 165/73 H 06/14/25 10:11 Pulse Oximetry 98 06/14/25 10:11 Temperature 36.7 C 06/14/25 10:11 Temperature Source Oral 06/14/25 10:11 Pulse 72 06/14/25 10:11 Respiratory Rate 16 06/14/25 10:11 Blood Pressure 165/73 H 06/14/25 10:11 Blood Pressure Position Sitting 06/14/25 10:11 Pulse Oximetry 98 06/14/25 10:11 Oxygen Delivery Method Room Air 06/14/25 10:11 Oxygen Flow Rate 0 06/14/25 10:11 Pain Level 0 06/14/25 10:11 Medical Decision Making ASSESSMENT AND PLAN Initial Assessment: 74-year-old female presents for nasal packing removal following epistaxis treatment on 06/12/2025. ED Course: - 7.5 cm Rapid Rhino removed from right nare - Small 2 mm anterior source of bleeding identified with ophthalmoscope, oozing blood. - Silver nitrate cauterization performed after verbal consent, hemostasis achieved, no complications. Final Assessment: Nasal packing removed, small anterior bleeding source cauterized, hemostasis achieved. Elevated blood pressure noted. Clinical Impression: - Epistaxis - Elevated blood pressure Disposition: - Discharge: Outpatient follow-up with ENT as previously recommended. - Follow-Up: Follow up with primary care physician for elevated blood pressure. Patient Education: Usual instructions reviewed. This document was written with the assistance of SHAI Han. The patient consented to its use. Quality:SDOH Health Related Social Needs: Health related social needs risk of homeless house/econ circumstance Health related social needs details left [facility] All Active Problems (Updated 06/14/25 @ 10:42 by Roly Flanagan MD) Acute anterior epistaxis (Acute) Encounter for removal of nasal packing (Acute) Anxiety (Chronic) Pain disorder associated with psychological and physical factors (Acute) Right carpal tunnel syndrome (Acute) s/p revision ECTR DOS: 06/24/24 Situational depression (Acute) At risk for electrolyte imbalance (Acute) Cellulitis (Acute) Pain and swelling of toe of right foot (Acute) Edema of right lower extremity (Acute) Cervical spondylosis without myelopathy (Acute) Lumbosacral spondylosis without myelopathy (Acute) Chronic pain syndrome (Chronic) Low back pain (Acute) Neck pain (Acute) Anemia (Chronic) Hpkve-hw-rcthohc kidney injury (Acute) Anemia (Chronic) Acute sinus infection (Acute) Epistaxis (Acute) Paroxysmal A-fib (Acute) dx in hospital 05/2022 Chest pain (Acute) Chronic pain (Chronic) CAD (coronary artery disease) (Chronic) KEVIN (acute kidney injury) (Acute) Acute confusion (Acute) Severe anemia (Acute) Multiple open wounds of right lower leg (Acute) Chronic pain of right lower extremity (Acute) Bilateral carpal tunnel syndrome (Acute) B/L ECTR: 06/24/2024 Ulnar neuropathy of both upper extremities (Acute) Renal lesion (Acute) Phlegm in throat (Acute) Hand numbness (Acute) Lipodermatosclerosis (Acute) Bladder leak (Acute) Weight gain (Acute) Rash (Acute) Change in bowel habits (Acute) 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 Harvey. Osteoarthritis of right hip (Chronic) Injection under fluoroscopy: 10/01/2019 RLS (restless legs syndrome) (Chronic) Primary osteoarthritis of right knee (Chronic) Chronic pain of left lower extremity (Chronic) await packing inspector recommendations Polyp of colon (Acute 09/15/09) 09/25 COLONOSCOPY: ONE TUBULAR ADENOMA AND FOUR HYPERPLASTIC POLYPS. ALEX (obstructive sleep apnea) (Chronic 03/11/18) not on CPAP due to bedroom size Hyperlipidemia (Acute 01/14/14) History of tobacco use (Acute) Essential hypertension (Acute 08/18/13) Cataracts, both eyes (Acute) 11/11/15 OPTICAL EXPRESSIONS; EARLY CATARACTS B12 deficiency (Acute 04/08/15) Atherosclerosis of [place] coronary artery (Acute) Stent RCA 2006 Hyperlipidemia (Chronic) Hypertension (Chronic) CAD (coronary artery disease) (Chronic) S/P stent 2004 Peripheral vascular disease (Chronic) S/P right SFA antioplasty an sstenting, 2003. Left DVA to [place] popliteal bypass with [place], 2003. Bypass Left Stent Right 2006 left BKA 08/28 Medical History Venous insufficiency of leg Atrial fibrillation Fracture, femur closed, shaft (05/13/22) (L) Carpal tunnel syndrome (05/16/09) Hypertension History of tobacco abuse Quit 2004 Surgical History Status post amputation of lesser toe of right foot History of left hip replacement History of total replacement of left shoulder joint 02/08/23. -hb S/P peripheral artery angioplasty with stent placement Status post below-knee amputation of left lower extremity (2012) History of total right hip replacement (08/03/20) Hx of tubal ligation History of carpal tunnel release Bilaterally Family History Mother , 74 Neoplasm UTERINE Osteoporosis Uterine cancer Lung cancer Father Lung cancer Sister Neoplasm MELANOMA Breast cancer Sister No problems noted. Sister Skin cancer Brother No problems noted. Son Alcohol abuse Depression Maternal Grandfather Stomach cancer Paternal Grandfather No problems noted. Maternal Grandmother No problems noted. Paternal Grandmother No problems noted. Daughter Depression Social History Smoking/Tobacco Use Status: Current every day Tobacco Type: cigarettes Tobacco: How many years used: 37 Second Hand Exposure: Yes Smoking risk assessment performed?: Yes Alcohol Intake: current Alcohol Intake frequency: a few times a month Alcohol type: beer and hard liquor Drug use: Never Substance use type: does not use Caregiver/Support person: No Household members: none Housing: house Do you need help understanding health information?: Rarely current occupation: [employer] Pets and animals: Yes Pets and animals: cat(s) Sexually active: No Do you think of yourself as: straight/heterosexual Current gender identity: female What is your relationship status?: How often do you talk on the phone with friends or family?: three or more times per week How often do you get together with friends or relatives?: decline to answer How often do you attend mu-ism or scientology services?: 1-3 times per year Do you belong to any clubs or organized social groups?: no Panel score (0-1 are the most socially isolated patients): 2 What type of physical activity do you participate in: none Carmelina/Shinto: Jewish Special carmelina needs: No Seatbelt use: always Helmet use: Yes Helmet use: always Drive intox 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 solid waste 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: No Do you feel safe at home: Yes Do you feel safe in your relationship?: Yes Would you like helpful sources: No PAWSS Have you Been Recently Intoxicated or Drunk Within the Last 30 days?: No Have you Ever Experienced Previous Episodes of Alcohol Withdrawal?: No Have you ever Experienced Withdrawal Seizures?: No Have you ever Experienced Delirium Tremens(DT)s?: No Have you ever undergone Alcohol Rehabilitation Treatment (i.e, inpt ot outpatient treatment programs)?: No Have you ever Experienced Blackouts?: No Have you ever Combined Alcohol with other Downers within the last 90 days?: No Have you ever Combined Alcohol with any other Substance of Abuse during the last 90 days?: No Positive Blood Alcohol level on Presentation? [PCS.BAL]: No Evidence of Increased Autonomic Activity (i.e. HR>120, tremor, sweating, agitation, nausea)?: No Result: 0
[2025-06-14] MEDS: Silver Nitrate Stick 1 EACH (10:53)
[2025-06-14 10:54] VITALS: BP 173/35; PULSE 68; RESP 20; TEMP 37.1; O2SAT 96
== END 2025-06-14 10:55 | disposition home or self-care (01) ==
PROVIDERS: Emergency Provider Student in an Organized Health Care Education/Training Program; PCP Family Medicine
DX: R04.0 Epistaxis (principal); Z48.00 Encounter for change or removal of nonsurgical wound dressing; Z59.89 Other problems related to housing and economic circumstances; Z59.811 Housing instability, housed, with risk of homelessness
CPT/HCPCS: 30906

== ENCOUNTER 2025-06-25 11:19 | Outpatient (CLI) | payer MEDICARE, BC, SELFPAY ==
--- NOTE | 2025-06-25 10:30 | DI.RAD_ITS ---
Exam(s) XR KNEE RT 2V AP,LAT EXAM: XR KNEE RT 2V AP,LAT CLINICAL HISTORY: right knee injury. TECHNIQUE: 2D digital imaging was performed of the right knee. Two views obtained. AP and lateral views were obtained. COMPARISON: CR XR KNEE RT 3V AP,LAT,APOLINAR from 08/17/2019 FINDINGS: BONES: No acute fracture is present. No bony destructive lesion is seen. JOINTS: There is marked narrowing in the medial femoral tibial joint. There osteophytes in all 3 joint compartments. No joint effusion is seen. SOFT TISSUE: Atherosclerotic calcification is present. IMPRESSION: Marked osteoarthritis of the right knee. DATA REPOSITORY: RADIATION DOSE DELIVERED:
== END 2025-06-25 11:20 | disposition home or self-care (01) ==
LOC: DIORS 11:20
PROVIDERS: PCP Family Medicine; Referring Provider Family Medicine; Visit Provider Physician Assistant
DX: S89.91XA Unspecified injury of right lower leg, initial encounter (principal); W19.XXXA Unspecified fall, initial encounter; M17.11 Unilateral primary osteoarthritis, right knee
CPT/HCPCS: 99213; 73560

== ENCOUNTER 2025-07-16 13:11 | Outpatient (CLI) | payer MEDICARE, BC, SELFPAY ==
[2025-07-16 12:59] LABS: Abs Immature Grans 0.22 10^3/uL (0.0-0.06); HCT 41.7 % (36.0-46.0); HGB 13.1 g/dL (11.2-15.7); Immature Grans % 1.8 %; MCH 34.0 pg (27.0-33.0); MCHC 31.4 % (32.0-36.0); MCV 108 fL (80-95); MPV 11.1 fL (8.0-11.0); Platelet Count 293 10^3/uL (130-400); RBC 3.85 10^6/uL (3.93-5.22); RDW 18.2 % (11.7-14.6); RDW-SD 72.8 fL; WBC 12.55 10^3/uL (4.4-10.8)
[2025-07-16 14:29] LABS: Iron 63 ug/dL (50-170); Total Iron Binding Capacity 333 ug/dL (250-450); Transferrin Sat 19 % (15-50)
[2025-07-16 14:42] LABS: ALT 23 U/L (14-59); AST 11 U/L (15-37); Albumin 3.5 g/dL (3.4-5.0); Alkaline Phosphatase 81 U/L (46-116); Anion Gap 11.2 mmol/L (3-11); BUN 39 mg/dL (7-18); Bilirubin, Total 0.4 mg/dL (0.2-1.0); CO2 25.8 mmol/L (21.0-32.0); Calcium 9.1 mg/dL (8.5-10.1); Chloride 104 mmol/L (98-107); Ferritin 35 ng/mL (8-252); Glucose 62 mg/dL (74-106); Potassium 5.2 mmol/L (3.5-5.1); Sodium 141 mmol/L (136-145); Total Protein 7.4 g/dL (6.4-8.2)
== END 2025-07-16 13:12 | disposition home or self-care (01) ==
LOC: LBO 13:27
PROVIDERS: PCP Family Medicine; Visit Provider Internal Medicine Hematology & Oncology
DX: D47.1 Chronic myeloproliferative disease (principal); D47.3 Essential (hemorrhagic) thrombocythemia; D75.839 Thrombocytosis, unspecified
CPT/HCPCS: 36415; 80053; 82728; 83540; 83550; 85025